=== PATIENT | male | born 1955 | race Caucasian/White ===

== ENCOUNTER → 2020-01-10 08:27 | Outpatient (BNVA) | payer OTHER, SELFPAY | DX: I48.91 Unspecified atrial fibrillation (principal); Z51.81 Encounter for therapeutic drug level monitoring; Z79.01 Long term (current) use of anticoagulants | CPT/HCPCS: 85610; 99211 ==

== ENCOUNTER 2020-01-15 11:51 | Emergency (ER) | payer OTHER, SELFPAY ==
[2020-01-15 11:56] VITALS: BP 129/72; PULSE 80; RESP 16; TEMP 36.8; O2SAT 98; BMI 48.4
--- NOTE | 2020-01-15 12:17 | ECG_ITS ---
Test Reason : CHEST PRESSURE Blood Pressure : / mmHG Vent. Rate : 085 BPM Atrial Rate : 091 BPM P-R Int : 000 ms QRS Dur : 100 ms QT Int : 416 ms P-R-T Axes : 000 -17 006 degrees QTc Int : 495 ms Atrial fibrillation Left axis deviation Nonspecific T wave abnormality Abnormal ECG When compared with ECG of 12-DEC-2016 17:06, Atrial fibrillation is new Referred By: Kina Garnett Electronically Signed By:JEANIE MERLOS MD
--- NOTE | 2020-01-15 12:17 | XR_ITS ---
EXAMINATION: XR CHEST CLINICAL INFORMATION: Cough, shortness of breath COMPARISON: 10/07/2017 TECHNIQUE: 2 views of the chest were obtained. FINDINGS: Mild peribronchial thickening. A trace posterior left pleural effusion is noted. A few increased markings are noted at the left lung base. No pneumothorax. No acute osseous abnormality. IMPRESSION: Mild peribronchial thickening. A few increased markings at the left lung base with a trace left pleural effusion are noted. The findings are not specific. Considerations include an early focus of pneumonia versus secretions/atelectasis.
--- NOTE | 2020-01-15 12:27 | ED_ITS ---
HPI - Asthma General Chief Complaint: Asthma Stated Complaint: SOB Time Seen by Provider: 01/15/20 12:05 Source: EMS Mode of arrival: EMS Limitations: no limitations History of Present Illness HPI Narrative: 64-year-old male with a past medical history of AFib on Coumadin, asthma, Crohn's disease status post resection status post colostomy here with shortness of breath, nonproductive cough x3 days. The patient tells me he has had some chest pressure which occurs with exertion and he has noticed over the past 3 days as well. He denies any fevers, chills, upper respiratory symptoms or lower leg swelling. No calf pain. He also noticed today when he had some chest pressure that he had some tingling in his left and right arms and across his face. He tells me he has had some anxiety recently as his refrigerator broke at home and he has been trying to fix it. Used his albuterol inhaler several times with no relief. No history of ICU admissions or intubations. MD complaint: shortness of breath Onset (ago): day(s) Severity: mild Context: other ( Triggered by season changes, infection) Associated symptoms: dry cough and chest pain Asthma History: childhood onset Treatments Prior to Arrival: inhaled bronchodilator Related Data Current Asthma Therapy: inhaled bronchodilator Previous Rx's Medication Instructions Recorded warfarin 5 mg tablet 5 mg PO DAILY #90 tab 01/10/20 doxycycline monohydrate 100 mg PO BID 10 Days #20 cap 01/15/20 prednisone 20 mg PO BID 4 Days #8 tab 01/15/20 Allergies Allergy/AdvReac Type Severity Reaction Status Date / Time pollen extracts [POLLEN] Allergy Unknown UNKNOWN Verified 01/10/20 08:13 Review of Systems Review of Systems: Yes all other systems are reviewed and are negative Constitutional: Constitutional: Reports no additional constitutional complaints, Denies body ache(s), Denies chills, Denies fever(s), Denies headache(s) and Denies weakness Eyes: Eyes: Reports no additional eye complaints and Denies change in vision ENT: Reports system reviewed and no additional complaints, except as documented, Denies dizziness, Denies headache(s), Denies nasal congestion, Denies nasal discharge and Denies neck pain Cardiovascular: Cardiovascular: Reports no additional cardiovascular complaints, Reports chest pain ( pressure), Reports chest pain with activity, Denies rapid heart rate, Denies leg edema, Denies lightheadedness, Reports dyspnea and Reports dyspnea on exertion Respiratory: Respiratory: Reports no additional respiratory complaints, Repor ts cough, Reports dyspnea and Reports dyspnea on exertion Gastrointestinal: Gastrointestinal: Reports no additional gastrointestinal complaints, Denies abdominal pain, Denies diarrhea, Denies nausea and Denies vomiting Genitourinary: Genitourinary: Denies urinary incontinence Musculoskeletal: Musculoskeletal: Reports no additional musculoskeletal complaints, Denies back pain, Denies arthralgias, Denies joint swelling, Denies neck pain, Denies numbness and Reports tingling Integumentary/Breasts: Skin/Breast: Reports system reviewed and no additional complaints, except as docu and Denies rash Neurologic: Reports system reviewed and no additional complaints, except as documented, Denies Abnormal speech present, Denies dizziness, Denies headache(s), Denies numbness, Reports tingling and Denies weakness PMFSH Past Medical History Attestation statement: The following information was validated with the patient. Source: old records reviewed and nursing notes reviewed Medical History A-fib Asthma Crohn disease Surgical History History of creation of ostomy Social History Social History Alcohol intake: never Smoked in Last 30 Days: No Use of substances other than those prescribed or required for medical reasons: No Advance Directives: No Advance Directives Information Provided: No Physical Exam Vital Signs: Vital Signs: Vital Signs Temp Pulse Resp BP Pulse Ox 01/15/20 13:48 92 20 109/59 L 95 01/15/20 11:56 98.2 F 80 16 129/72 98 Body Mass Index 48.4 Const: General: cooperative, healthy appearing, comfortable and no acute distress Orientation/consciousness: patient oriented x3 Limitations: no limitations HENMT: Head: Yes normal to inspection Ears: hearing grossly normal bilaterally General nose exam: Normal external nose present Face and sinus: Yes normal facial exam Mouth: Normal oral and palatal mucosa present Throat: Yes posterior oropharynx normal Eyes: General: appearance normal, both eyes and all related structures Pupils: Equal, round and reactive pupils present Neck: Neck: Yes normal visual inspection Chest: Chest palpation & inspection: normal inspection of the chest Resp: Other: speaking full sentences. Effort & Inspection: normal respiratory effort Auscultation: clear to auscultation bilaterally Cardio: Rate: regular rate Rhythm: regular rhythm Peripheral pulses: Peripheral pulses 2+ throughout GI: Inspection: Yes normal to inspection Palpation (GI): Soft to palpation and nontender Auscultation: normal bowel sounds Back/Spine/Pelvis: Thoracic/Lumbar Spine: thoracic and lumbar spine normal to inspection Skin: General skin exam: no rashes or lesions noted Neuro: General: patient oriented x3, no focal motor deficits and normal sensation to monofilament Cranial nerves: Yes Equal, round and reactive pupils present Cognition (Neuro): normal cognition Speech: No Abnormal speech present Gait exam (Neuro): Normal gait present Motor exam (neuro): 5/5 motor strength present throughout Extrem: General: Yes normal to inspection Course Course Course Narrative: 64-year-old male here with exertional shortness of breath, chest pressure, dry cough the last 3 days unrelieved with albuterol at home. Today had some associated tingling of upper extremities and face. On arrival the patient is well appearing. Stable vital signs. No chest pressure at this time. Lung sounds are clear. Will need labs, EKG, chest x-ray, respiratory viral panel. Will give DuoNeb, Solu-Medrol and reassessed. 1300- chest x-ray concerning for an early pneumonia. At this time infection is suspected. Blood cultures and lactic acid ordered. 1430- lactic acid mildly elevated. No leukocytosis or shift or fever or other signs or symptoms of sepsis. Pt was given 1 L of normal saline and will plan for repeat lactic. Patient was given 1 dose of antibiotics for presumed pneumonia. He has sufficient albuterol at home. Will give short course of prednisone as well. Ambulated around the ER with stable saturations greater than 96%. Reviewed worrisome signs and symptoms and when to return to the emergency department. Comfortable discharge home. MDM - Asthma MDM Narrative Medical decision making narrative: Considered asthma exacerbation, PE, ACS, viral syndrome, CHF, aortic dissection/ 1430- Low concern for ACS with unremarkable EKG and negative troponin with symptoms greater than 3 days. Low concern for viral syndrome are COVID infection with negative viral panel. Low concern for CHF with negative BNP. Low concern for aortic dissection with atypical pain/presentation, unremarkable chest x-ray and improving symptoms. low concern for PE with therapeutic INR and no hypoxia or tachycardia. Medical Records Attestation: I reviewed the patient's medical records. Lab Data Attestation: I reviewed the patient's lab results. Result diagrams: 01/15/20 12:54 01/15/20 12:54 Labs: Lab Results 01/15/20 01/15/20 01/15/20 Range/Units 12:47 12:54 12:54 WBC 10.7 (4.8-10.8) X10*3/uL RBC 5.32 (4.60-5.80) X10*6/uL Hgb 12.9 L (14.0-18.0) g/dl Hct 44.3 (42-52) % MCV 83.3 (80-98) fL MCH 24.2 L (27.0-33.0) pg MCHC 29.1 L (31.0-36.0) g/dl RDW 16.6 H (11.0-16.0) % Plt Count 244 (160-400) X10*3/uL MPV 10.7 (9.4-12.4) fL Immature Gran % (Auto) 0.3 (0.0-0.4) % Neut % (Auto) 64.9 (45-73) % Lymph % (Auto) 21.1 (20-40) % [place] % (Auto) 11.2 H (2-11) % Eos % (Auto) 2.0 (0-4) % Baso % (Auto) 0.5 (0-2) % Lymph # (Auto) 2.3 (1.2-4.9) X10*3/uL [place] # (Auto) 1.2 (0.1-1.2) X10*3/uL Eos # (Auto) 0.2 (0.0-0.4) X10*3/uL Baso # (Auto) 0.1 (0.0-0.2) X10*3/uL Abs Immat Gran (auto) 0.03 (0.00-0.03) X10*3/uL Absolute Neuts (auto) 7.0 (2.0-8.3) X10*3/uL Absolute Nucleated RBC 0.000 (0.0-0.012) X10*3/uL Nucleated RBC % (auto) 0.0 (0.0-0.2) /100WBC PT 27.4 H (10.8-13.0) SEC INR 2.3 H (0.9-1.1) Sodium (135-145) mmol/L Potassium (3.3-5.1) mmol/l Chloride (96-108) mmol/L Carbon Dioxide (22-29) mmol/L Anion Gap (12-20) BUN (9-16) mg/dL Creatinine (0.5-1.4) mg/dL Estim Creat Clear Calc Estimated GFR Random Glucose (60-115) mg/dL Lactic Acid (0.5-2.0) mmol/L Lactic Acid Fup @ 2Hr (0.5-2.0) mmol/L Calcium (8.4-10.2) mg/dL Magnesium (1.6-2.6) mg/dL Total Bilirubin (0.0-1.0) mg/dL Direct Bilirubin (0.0-0.5) mg/dL AST (5-37) U/L ALT (0-40) U/L Alkaline Phosphatase (39-117) U/L Troponin I High Sens (<3.5-35.0) ng/L B-Natriuretic Peptide (<100) pg/mL Total Protein (6.5-8.0) g/dL Albumin (3.5-5.0) g/dL Respiratory Panel Lindsay See Note Adenovirus (Rapid PCR) Not Detected (Not Detect.) B.pert (TEM-PCR) Not Detected (Not Detect.) B.parapertussis DNA PCR Not Detected (Not Detect.) C. pneumoniae DNA (PCR) Not Detected (Not Detect.) Coronavirus OC43 (PCR) Not Detected (Not Detect.) Coronavirus HKU1 (PCR) Not Detected (Not Detect.) Coronavirus 229E (PCR) Not Detected (Not Detect.) Coronavirus NL63 (PCR) Not Detected (Not Detect.) Human Metapneumovir PCR Not Detected (Not Detect.) Influenza A (RT-PCR) Not Detected (Not Detect.) Influenza B (RT-PCR) Not Detected (Not Detect.) M. pneumoniae (PCR) Not Detected (Not Detect.) Parainfluenza 1 (PCR) Not Detected (Not Detect.) Parainfluenza 2 (PCR) Not Detected (Not Detect.) Parainfluenza 3 (PCR) Not Detected (Not Detect.) Parainfluenza 4 (PCR) Not Detected (Not Detect.) RSV (PCR) Not Detected (Not Detect.) Entero/Rhino (PCR) Not Detected (Not Detect.) SARS-CoV-2 RNA (RT-PCR) Not Detected (Not Detect.) 01/15/20 01/15/20 01/15/20 Range/Units 12:54 12:54 13:28 WBC (4.8-10.8) X10*3/uL RBC (4.60-5.80) X10*6/uL Hgb (14.0-18.0) g/dl Hct (42-52) % MCV (80-98) fL MCH (27.0-33.0) pg MCHC (31.0-36.0) g/dl RDW (11.0-16.0) % Plt Count (160-400) X10*3/uL MPV (9.4-12.4) fL Immature Gran % (Auto) (0.0-0.4) % Neut % (Auto) (45-73) % Lymph % (Auto) (20-40) % [place] % (Auto) (2-11) % Eos % (Auto) (0-4) % Baso % (Auto) (0-2) % Lymph # (Auto) (1.2-4.9) X10*3/uL [place] # (Auto) (0.1-1.2) X10*3/uL Eos # (Auto) (0.0-0.4) X10*3/uL Baso # (Auto) (0.0-0.2) X10*3/uL Abs Immat Gran (auto) (0.00-0.03) X10*3/uL Absolute Neuts (auto) (2.0-8.3) X10*3/uL Absolute Nucleated RBC (0.0-0.012) X10*3/uL Nucleated RBC % (auto) (0.0-0.2) /100WBC PT (10.8-13.0) SEC INR (0.9-1.1) Sodium 142 (135-145) mmol/L Potassium 4.3 (3.3-5.1) mmol/l Chloride 105 (96-108) mmol/L Carbon Dioxide 30 H (22-29) mmol/L Anion Gap 11 L (12-20) BUN 19 H (9-16) mg/dL Creatinine 1.09 (0.5-1.4) mg/dL Estim Creat Clear Calc 101.3 Estimated GFR > 60 Random Glucose 98 (60-115) mg/dL Lactic Acid 2.4 H* (0.5-2.0) mmol/L Lactic Acid Fup @ 2Hr (0.5-2.0) mmol/L Calcium 8.5 (8.4-10.2) mg/dL Magnesium 2.0 (1.6-2.6) mg/dL Total Bilirubin 0.4 (0.0-1.0) mg/dL Direct Bilirubin 0.3 (0.0-0.5) mg/dL AST 31 (5-37) U/L ALT 27 (0-40) U/L Alkaline Phosphatase 121 H (39-117) U/L Troponin I High Sens < 3.5 (<3.5-35.0) ng/L B-Natriuretic Peptide 72 (<100) pg/mL Total Protein 6.7 (6.5-8.0) g/dL Albumin 3.6 (3.5-5.0) g/dL Respiratory Panel Lindsay Adenovirus (Rapid PCR) (Not Detect.) B.pert (TEM-PCR) (Not Detect.) B.parapertussis DNA PCR (Not Detect.) C. pneumoniae DNA (PCR) (Not Detect.) Coronavirus OC43 (PCR) (Not Detect.) Coronavirus HKU1 (PCR) (Not Detect.) Coronavirus 229E (PCR) (Not Detect.) Coronavirus NL63 (PCR) (Not Detect.) Human Metapneumovir PCR (Not Detect.) Influenza A (RT-PCR) (Not Detect.) Influenza B (RT-PCR) (Not Detect.) M. pneumoniae (PCR) (Not Detect.) Parainfluenza 1 (PCR) (Not Detect.) Parainfluenza 2 (PCR) (Not Detect.) Parainfluenza 3 (PCR) (Not Detect.) Parainfluenza 4 (PCR) (Not Detect.) RSV (PCR) (Not Detect.) Entero/Rhino (PCR) (Not Detect.) SARS-CoV-2 RNA (RT-PCR) (Not Detect.) 01/15/20 Range/Units 15:55 WBC (4.8-10.8) X10*3/uL RBC (4.60-5.80) X10*6/uL Hgb (14.0-18.0) g/dl Hct (42-52) % MCV (80-98) fL MCH (27.0-33.0) pg MCHC (31.0-36.0) g/dl RDW (11.0-16.0) % Plt Count (160-400) X10*3/uL MPV (9.4-12.4) fL Immature Gran % (Auto) (0.0-0.4) % Neut % (Auto) (45-73) % Lymph % (Auto) (20-40) % [place] % (Auto) (2-11) % Eos % (Auto) (0-4) % Baso % (Auto) (0-2) % Lymph # (Auto) (1.2-4.9) X10*3/uL [place] # (Auto) (0.1-1.2) X10*3/uL Eos # (Auto) (0.0-0.4) X10*3/uL Baso # (Auto) (0.0-0.2) X10*3/uL Abs Immat Gran (auto) (0.00-0.03) X10*3/uL Absolute Neuts (auto) (2.0-8.3) X10*3/uL Absolute Nucleated RBC (0.0-0.012) X10*3/uL Nucleated RBC % (auto) (0.0-0.2) /100WBC PT (10.8-13.0) SEC INR (0.9-1.1) Sodium (135-145) mmol/L Potassium (3.3-5.1) mmol/l Chloride (96-108) mmol/L Carbon Dioxide (22-29) mmol/L Anion Gap (12-20) BUN (9-16) mg/dL Creatinine (0.5-1.4) mg/dL Estim Creat Clear Calc Estimated GFR Random Glucose (60-115) mg/dL Lactic Acid (0.5-2.0) mmol/L Lactic Acid Fup @ 2Hr 1.5 (0.5-2.0) mmol/L Calcium (8.4-10.2) mg/dL Magnesium (1.6-2.6) mg/dL Total Bilirubin (0.0-1.0) mg/dL Direct Bilirubin (0.0-0.5) mg/dL AST (5-37) U/L ALT (0-40) U/L Alkaline Phosphatase (39-117) U/L Troponin I High Sens (<3.5-35.0) ng/L B-Natriuretic Peptide (<100) pg/mL Total Protein (6.5-8.0) g/dL Albumin (3.5-5.0) g/dL Respiratory Panel Lindsay Adenovirus (Rapid PCR) (Not Detect.) B.pert (TEM-PCR) (Not Detect.) B.parapertussis DNA PCR (Not Detect.) C. pneumoniae DNA (PCR) (Not Detect.) Coronavirus OC43 (PCR) (Not Detect.) Coronavirus HKU1 (PCR) (Not Detect.) Coronavirus 229E (PCR) (Not Detect.) Coronavirus NL63 (PCR) (Not Detect.) Human Metapneumovir PCR (Not Detect.) Influenza A (RT-PCR) (Not Detect.) Influenza B (RT-PCR) (Not Detect.) M. pneumoniae (PCR) (Not Detect.) Parainfluenza 1 (PCR) (Not Detect.) Parainfluenza 2 (PCR) (Not Detect.) Parainfluenza 3 (PCR) (Not Detect.) Parainfluenza 4 (PCR) (Not Detect.) RSV (PCR) (Not Detect.) Entero/Rhino (PCR) (Not Detect.) SARS-CoV-2 RNA (RT-PCR) (Not Detect.) Imaging Data Chest x-ray: Attestation: I personally reviewed and interpreted this imaging study as follows: My impression: Mild peribronchial thickening, trace left pleural effusion. ?early PNA vs atelectasis. Radiologist's impression: EXAMINATION: XR CHEST CLINICAL INFORMATION: Cough, shortness of breath COMPARISON: 10/07/2017 TECHNIQUE: 2 views of the chest were obtained. FINDINGS: Mild peribronchial thickening. A trace posterior left pleural effusion is noted. A few increased markings are noted at the left lung base. No pneumothorax. No acute osseous abnormality. IMPRESSION: Mild peribronchial thickening. A few increased markings at the left lung base with a trace left pleural effusion are noted. The findings are not specific. Considerations include an early focus of pneumonia versus secretions/atelectasis. ECG Data Attestation: I personally reviewed and interpreted this ECG as follows: ECG interpretation date: 01/15/20 ECG interpretation time: 12:40 Interpretation: EKG shows rate of 85. there are not obvious P-waves in every lead however there are some present. Prolonged QT 495. Normal QRS Discharge Plan Discharge Clinical Impression: Pneumonia Patient Disposition: Home, Self-Care Instructions: Pneumonia (ED) Additional Instructions: Start your antibiotics and prednisone tomorrow morning Continue albuterol as needed Prescriptions: New doxycycline monohydrate 100 mg capsule 100 mg PO BID 10 Days Qty: 20 RF: 0 prednisone 20 mg tablet 20 mg PO BID 4 Days Qty: 8 RF: 0 No Action warfarin 5 mg tablet 5 mg PO DAILY Qty: 90 RF: 0 Referrals: Butch Rios MD [Primary Care Provider] - 2 days Interventions: ED Discharge Assessment Last Done: 01/15/20 17:10 Discharge Date/Time: 01/15/20 17:11
[2020-01-15] MEDS: methylPREDNISolone Sod Succ/PF 125 MG/2 ML VIAL IVPUSH (12:30)
[2020-01-15] MEDS: Albuterol/Iprat 2.5/0.5MG 3 ML AMPUL.NEB INHALE (12:30)
[2020-01-15 13:00] LABS: Basophils Absolute Auto 0.1 X10*3/uL (0.0-0.2); Basophils Percent Auto 0.5 % (0-2); Eosinophils Absolute Auto 0.2 X10*3/uL (0.0-0.4); Hematocrit 44.3 % (42-52); Hemoglobin 12.9 g/dl (14.0-18.0); Imm Gran Abs Auto 0.03 X10*3/uL (0.00-0.03); Imm Gran Pct Auto 0.3 % (0.0-0.4); Lymphocytes Absolute Auto 2.3 X10*3/uL (1.2-4.9); Lymphocytes Percent Auto 21.1 % (20-40); MANUAL DIFF FLAG NO; Mean Corpuscular HGB Conc 29.1 g/dl (31.0-36.0); Mean Corpuscular Hemoglobin 24.2 pg (27.0-33.0); Mean Corpuscular Volume 83.3 fL (80-98); Mean Platelet Volume 10.7 fL (9.4-12.4); Monocytes Absolute Auto 1.2 X10*3/uL (0.1-1.2); Monocytes Percent Auto 11.2 % (2-11); Neutrophils Percent Auto 64.9 % (45-73); Platelet Count 244 X10*3/uL (160-400); Red Blood Count 5.32 X10*6/uL (4.60-5.80); Red Cell Distribution Width 16.6 % (11.0-16.0); White Blood Count 10.7 X10*3/uL (4.8-10.8)
[2020-01-15 13:05] LABS: INTERNATIONAL NORM RATIO 2.3 (0.9-1.1); Prothrombin Time 27.4 SEC (10.8-13.0)
[2020-01-15 13:07] LABS: Adenovirus PCR Not Detected (Not Detect.); Bordetella parapertussis PCR Not Detected (Not Detect.); Bordetella pertussis PCR Not Detected (Not Detect.); Chlamydia pneumoniae PCR Not Detected (Not Detect.); Coronavirus 229E PCR Not Detected (Not Detect.); Coronavirus HKU1 PCR Not Detected (Not Detect.); Coronavirus NL63 PCR Not Detected (Not Detect.); Coronavirus OC43 PCR Not Detected (Not Detect.); Human metapneumovirus PCR Not Detected (Not Detect.); Influenza A PCR Not Detected (Not Detect.); Influenza B PCR Not Detected (Not Detect.); Mycoplasma pneumoniae PCR Not Detected (Not Detect.); Parainfluenza 1 PCR Not Detected (Not Detect.); Parainfluenza 2 PCR Not Detected (Not Detect.); Parainfluenza 3 PCR Not Detected (Not Detect.); Parainfluenza 4 PCR Not Detected (Not Detect.); RSV PCR Not Detected (Not Detect.); Rhino/Enterovirus PCR Not Detected (Not Detect.); SARS-CoV-2 PCR Not Detected (Not Detect.)
[2020-01-15 13:30] LABS: Alanine Aminotransferase 27 U/L (0-40); Albumin Level 3.6 g/dL (3.5-5.0); Alkaline Phosphatase 121 U/L (39-117); Aspartate Amino Transferase 31 U/L (5-37); Bilirubin Direct 0.3 mg/dL (0.0-0.5); Bilirubin Total 0.4 mg/dL (0.0-1.0); Blood Urea Nitrogen 19 mg/dL (9-16); Calcium 8.5 mg/dL (8.4-10.2); Creatinine Clr Calc Pharmacy 101.3; Estimated Glomerular Filt Rate > 60; Glucose Random 98 mg/dL (60-115); Total Protein 6.7 g/dL (6.5-8.0)
[2020-01-15 13:34] LABS: B Type Natriuretic Peptide 72 pg/mL (<100); Troponin-I High Sensitivity < 3.5 ng/L (<3.5-35.0)
[2020-01-15 13:41] LABS: Anion Gap 11 (12-20); Carbon Dioxide 30 mmol/L (22-29); Chloride 105 mmol/L (96-108); Potassium 4.3 mmol/l (3.3-5.1); Sodium 142 mmol/L (135-145)
[2020-01-15 13:48] VITALS: BP 109/59; PULSE 92; RESP 20; O2SAT 95
[2020-01-15 13:58] LABS: Lactic Acid 2.4 mmol/L (0.5-2.0)
[2020-01-15] MEDS: 0.9 % Sodium Chloride 1,000 ML 999 ML IV (14:05)
--- NOTE | 2020-01-15 14:13 | PC.NURSE ---
PT SITTING UP IN BED, MEDICATED PER EMAR. AWARE OF PLAN OF CARE. DENIED HAVING ANY QUESTIONS. PT EATING AT THIS TIME.
[2020-01-15 15:32] LABS: Reflex Lactate? Lactic Acid Added
[2020-01-15 16:30] LABS: ~Lactic Acid-LAB USE ONLY 1.5 mmol/L (0.5-2.0)
== END 2020-01-15 17:11 | disposition home or self-care (01) ==
PROVIDERS: Nurse Practitioner Family; Emergency Provider Emergency Medicine
DX: J18.9 Pneumonia, unspecified organism (principal); Z20.828 Contact with and (suspected) exposure to other viral communicable diseases; J45.909 Unspecified asthma, uncomplicated; I48.91 Unspecified atrial fibrillation; Z79.01 Long term (current) use of anticoagulants
CPT/HCPCS: 36415; 71046; 80048; 80076; 83605; 83735; 83880; 84484; 85025; 85610; 87040; 87633; 93005; 96361; 96374; 99284; J2930

== ENCOUNTER → 2020-02-02 12:56 | Outpatient (BNVA) | payer OTHER, SELFPAY | PROVIDERS: Visit Provider Surgery | DX: K60.3 Anal fistula (principal) | CPT/HCPCS: 99212 ==

== ENCOUNTER → 2020-02-13 07:59 | Outpatient (BNVA) | payer OTHER, SELFPAY | PROVIDERS: Visit Provider Internal Medicine | DX: I48.20 Chronic atrial fibrillation, unspecified (principal); Z51.81 Encounter for therapeutic drug level monitoring; Z79.01 Long term (current) use of anticoagulants | CPT/HCPCS: 85610; 99211 ==

== ENCOUNTER 2020-02-17 11:45 | Outpatient (REF) | payer OTHER, SELFPAY ==
--- NOTE | 2020-02-17 11:52 | XR_ITS ---
EXAMINATION: XR CHEST CLINICAL INFORMATION: Shortness of breath COMPARISON: Chest radiographs 01/15/2020, 10/07/2017 TECHNIQUE: 2 views of the chest were obtained. FINDINGS: There is no definite airspace consolidation or groundglass opacity. Density right suprahilar region on frontal view is believed to be related to superimposed attenuation from costochondral chondral junction. In addition, there is no airspace opacity on lateral view and this area. There is coarsening bronchiolar markings. No hyperinflation. The heart is normal in size. The vascularity is normal. The lateral costophrenic sulci are clear. There is blunting posterior costophrenic sulcus is similar to prior exam. The hilar and mediastinal contours are unremarkable. No acute bony abnormality. Mid left 8th rib not well visualized, similar to prior exam, possibly postsurgical change. XR/XR chest 2V IMPRESSION: 1. Coarsening bronchiolar markings. No lobar or segmental airspace consolidation. 2. Blunting posterior left costophrenic sulcus and ill-defined left mid 8th rib, similar to prior exam, possibly postsurgical change.
== END 2020-02-17 11:46 | disposition home or self-care (01) ==
LOC: HO.XRAY 11:45
DX: R06.02 Shortness of breath (principal)
CPT/HCPCS: 71046

== ENCOUNTER 2020-03-02 08:51 | Outpatient (REF) | payer OTHER, SELFPAY ==
[2020-03-02 10:14] LABS: MANUAL DIFF FLAG NO
[2020-03-02 10:27] LABS: Basophils Absolute Auto 0.1 X10*3/uL (0.0-0.2); Basophils Percent Auto 0.6 % (0-2); Eosinophils Absolute Auto 0.4 X10*3/uL (0.0-0.4); Eosinophils Percent Auto 4.1 % (0-4); Hematocrit 47.7 % (42-52); Hemoglobin 13.5 g/dl (14.0-18.0); Imm Gran Abs Auto 0.05 X10*3/uL (0.00-0.03); Imm Gran Pct Auto 0.5 % (0.0-0.4); Lymphocytes Absolute Auto 1.7 X10*3/uL (1.2-4.9); Lymphocytes Percent Auto 16.4 % (20-40); Mean Corpuscular HGB Conc 28.3 g/dl (31.0-36.0); Mean Corpuscular Hemoglobin 23.4 pg (27.0-33.0); Mean Corpuscular Volume 82.8 fL (80-98); Mean Platelet Volume 10.7 fL (9.4-12.4); Monocytes Percent Auto 9.4 % (2-11); Platelet Count 279 X10*3/uL (160-400); Red Blood Count 5.76 X10*6/uL (4.60-5.80); Red Cell Distribution Width 18.2 % (11.0-16.0); White Blood Count 10.1 X10*3/uL (4.8-10.8)
== END 2020-03-02 08:52 | disposition home or self-care (01) ==
LOC: HO.LAB 08:51
PROVIDERS: Visit Provider Internal Medicine Pulmonary Disease
DX: Z91.09 Other allergy status, other than to drugs and biological substances (principal); J45.909 Unspecified asthma, uncomplicated
CPT/HCPCS: 36415; 82785; 85025; 86003; 99202

== ENCOUNTER 2020-03-06 07:49 | Outpatient (REF) | payer OTHER, SELFPAY ==
--- NOTE | 2020-03-06 17:41 | PFT_ITS ---
Forced vital capacity, FEV1, [id number], and MVV are all markedly decreased. Post bronchodilator therapy, there is significant improvement in all flow volumes. Total lung capacity is slightly decreased. Residual volume moderately increased. Diffusion capacity moderately decreased. CONCLUSION: Mild restrictive pulmonary disorder. Severe obstructive airway disorder. Partial reversibility after bronchodilator therapy is noted. This indicates diagnosis of asthma, COPD overlap syndrome. Clinical correlation recommended. MD SOCORRO Wood/HAROON / [id number]
== END 2020-03-06 07:50 | disposition home or self-care (01) ==
LOC: HO.RESP 07:49
PROVIDERS: Visit Provider Internal Medicine Pulmonary Disease
DX: J45.909 Unspecified asthma, uncomplicated (principal)
CPT/HCPCS: 94060; 94727; 94729

== ENCOUNTER → 2020-03-12 08:03 | Outpatient (BNVA) | payer OTHER, SELFPAY | PROVIDERS: Visit Provider Internal Medicine | DX: I48.20 Chronic atrial fibrillation, unspecified (principal); Z51.81 Encounter for therapeutic drug level monitoring; Z79.01 Long term (current) use of anticoagulants | CPT/HCPCS: 85610; 99211 ==

== ENCOUNTER → 2020-03-19 12:53 | Outpatient (BNVA) | payer OTHER, SELFPAY | PROVIDERS: PCP Internal Medicine; Visit Provider Internal Medicine | DX: I48.19 Other persistent atrial fibrillation (principal); R07.89 Other chest pain; Z79.899 Other long term (current) drug therapy | CPT/HCPCS: 93005; 99202 ==

== ENCOUNTER → 2020-03-21 09:41 | Outpatient (BNVA) | payer OTHER, SELFPAY | PROVIDERS: Visit Provider Internal Medicine Pulmonary Disease | DX: Z91.09 Other allergy status, other than to drugs and biological substances (principal); J45.909 Unspecified asthma, uncomplicated | CPT/HCPCS: 99212 ==

== ENCOUNTER → 2020-04-09 07:57 | Outpatient (BNVA) | payer OTHER, SELFPAY | PROVIDERS: Visit Provider Internal Medicine | DX: I48.20 Chronic atrial fibrillation, unspecified (principal); Z51.81 Encounter for therapeutic drug level monitoring; Z79.01 Long term (current) use of anticoagulants | CPT/HCPCS: 85610; 99211 ==

== ENCOUNTER → 2020-04-12 10:12 | Outpatient (REF) | payer OTHER, SELFPAY ==
--- NOTE | 2020-04-12 10:21 | CA_ITS ---
Transthoracic Echocardiogram Patient (Last, First, Middle): Gorge Dave M Gender: Male Date of : 1955 Age: 65 Procedure Date: 04/12/2020 Procedure Type: Transthoracic Echocardiogram Location: OP Height: 177.8 cm Weight: 142.88 kg BSA: 2.53 m2 Heart Rate: bpm BP: 110 / 70 mmHg Manager Process Improvement: FRANCISCO J Foote MD: Dimitri Villarreal MD Quality Assurance Engineer: Alex Leahy MD Symptoms: I48.19 - Other persistent atrial fibrillation Study Quality: Fair/Contrast ECG Rhythm: Atrial Fibrillation Conclusions: - 1. Normal LV systolic function 2. Moderate left atrial enlargement 3. Normal cardiac valvular Doppler next 4. Mildly dilated ascending aorta 5. No gross pericardial effusion 6. Normal RV systolic pressure Findings Procedure Information Contrast agent, definity, is being given per protocol without apparent complications. Left Ventricle Normal left ventricular size, thickness, and systolic function. The visually estimated ejection fraction is between 60-65%. Diastolic function is indeterminate on the basis of available data. Right Ventricle Mildly increased right ventricular cavity size. There is normal right ventricular systolic function. Atria The left atrium is moderately dilated. Interatrial shunt cannot be excluded. The right atrium is mildly dilated. Aortic Valve The aortic valve structure and function is likely normal. There is no aortic valve stenosis. There is no aortic valve regurgitation. Mitral Valve Normal mitral valve structure and function. There is trace mitral valve regurgitation. There is no mitral valve stenosis. Pulmonic Valve The pulmonic valve was not well visualized. Tricuspid Valve Likely normal tricuspid valve structure and function. There is trace tricuspid valve regurgitation. The right ventricular systolic pressure is normal. Normal right atrial pressure. There is no evidence of pulmonary hypertension. Great Vessels There is mild dilatation of the ascending aorta measuring 4.00 cm. Venous The inferior vena cava is normal in size and collapses greater than 50% with inspiration. Pericardium/Pleural There is no evidence of pericardial effusion. Prior Study Comparison No previous study in the last 5 years for comparison Measurements 2D Linear Measurements IVSd: 1.11 0.6-0.9/0.6-1.0 cm LVIDd: 4.48 3.9-5.3/4.2-5.9 cm LVIDd Index: 1.77 2.4-3.2/2.2-3.1 cm/m2 LVIDs: 2.86 2.0-3.6 cm LVPWd: 1.12 0.7-1.1 cm Ao Root: 3.60 2.1-3.5 cm LA Diam: 5.00 2.7-3.8/3.0-4.0 cm LAIDs Index: 1.98 1.5-2.3 cm/m2 LV Mass: 220.68 67-162/88-224 g LV Mass Index: 87.23 43-95/49-115 g/m2 LVOT Diam: 2.20 3.0+(-)1.3 cm Aortic Valve AoV Pk Terrence: 1.21 AoV Mn Terrence: 0.81 AoV VTI: 0.22 AoV Pk Grad: 6.00 Aov Mn Grad: 3.00 ADRIAN Cont.VTI: 2.40 LVOT LVOT Pk Terrence: 0.78 LVOT Mn Terrence: 0.52 LVOT VTI: 0.14 LVOT Pk Grad: 2.00 LVOT Mn Grad: 1.00 LVOT Diam: 2.20 LVOT Area: 3.80 Tricuspid Valve TR Pk Terrence: 2.17 TR Pk Grad: 19.00 RA Press: 3.00 RVSP: 22.00 Great Vessels Aorta Ao Root-2D: 3.60 2.0-3.7 cm Ao Asc: 4.00 2.1-3.4 cm Ao Arch: 3.50 Updated in Other Vendor System with Status of Final Alex Leahy MD electronically signed on 04/13/2020 1:58:44 PM with status of Final
--- NOTE | 2020-04-12 10:21 | ECG_ITS ---
Hook-up date: 2020-04-12 11:38:00 Duration: 27:00:00 Test Indications: PERSISTANT AFIB Medications: 331822 QRS complexes 214 Ventricular ectopics which represent <1 % of total QRS comp. * Supraventricular ectopics which represent % of total QRS comp. * Paced QRS complexs which represent % of total QRS comp. VENTRICULAR ECTOPY 210 Isolated 0 Bigeminal Cycles 2 Couplets 0 Runs 0 Beats in Runs * Beats LONGEST at * BPM at :: -- * Beats FASTEST at * BPM at :: -- SUPRAVENTRICULAR ECTOPY * Isolated * Couplets * Runs * Beats in Runs * Beats LONGEST at * BPM at :: -- * Beats FASTEST at * BPM at :: -- HEART RATES 46 MIN at 23:28:29 2020-04-12 71 AVG 138 MAX at 17:49:50 2020-04-12 LONGEST RR 2.5440 secs at 23:28:26 2020-04-12 S-T LEVELS Channel 1 - 128 mm at 11:38:00 2020-04-12 - 128 mm at 11:38:00 2020-04-12 Channel 2 - 128 mm at 11:38:00 2020-04-12 - 128 mm at 11:38:00 2020-04-12 Channel 3 - 128 mm at 03:05:71 -- - 128 mm at 03:05:71 Basic rhythm Atrial fibrillation No long pause or profound bradycardia Good rate control in AF Occasional Premature ventricular complexes Patient did not report any symptoms in the diary Referred By: Dimitri Villarreal Overread By: KAYLIE BANG MD
== END ==
LOC: HO.CARD 10:12
PROVIDERS: Visit Provider Internal Medicine
DX: I48.19 Other persistent atrial fibrillation (principal)
CPT/HCPCS: 93225; 93226; 93306; Q9957

== ENCOUNTER → 2020-04-18 09:11 | Outpatient (BNVA) | payer OTHER, SELFPAY | PROVIDERS: Visit Provider Internal Medicine Pulmonary Disease | DX: Z91.09 Other allergy status, other than to drugs and biological substances (principal); J45.909 Unspecified asthma, uncomplicated | CPT/HCPCS: 99212 ==

== ENCOUNTER → 2020-04-26 10:53 | Outpatient (BNVA) | payer OTHER, SELFPAY | PROVIDERS: PCP Internal Medicine; Visit Provider Internal Medicine | DX: I48.19 Other persistent atrial fibrillation (principal); R07.89 Other chest pain; Z79.01 Long term (current) use of anticoagulants | CPT/HCPCS: 99212 ==

== ENCOUNTER → 2020-04-30 07:47 | Outpatient (REF) | payer OTHER, SELFPAY ==
--- NOTE | 2020-04-30 | NM_ITS ---
Myocardial perfusion study Indication: Chest pressure to evaluate for myocardial ischemia Technique: The patient was brought in for a Lexiscan perfusion study on 04/30/2020. Patient performed low-level exercise and was injected 0.4 mg of Lexiscan intravenously. Within a minute of injection, 45 mCi of sestamibi was given intravenously. Images were obtained using the SPECT gamma camera interlaced with the gating device. Images were obtained in supine position. Resting perfusion study was performed on 05/01/2020. Patient was administered 45 mCi of sestamibi intravenously at rest. Images were then obtained in supine position. Images obtained with and without CT attenuation. Total DLP 144 mGy-cm Images were processed with the software and compared side to side in short axis, horizontal long axis and vertical long axis views. Findings: Suboptimal due to and down positioning during imaging The stress perfusion study showed non attenuated images show mildly reduced uptake in the lateral and inferolateral wall of the LV myocardium. Remainder of the LV myocardium is normally perfused. Attenuated corrected images show of the distal lateral wall of the LV myocardium.. The gated study shows normal LV systolic function with calculated LVEF of greater than 70 %. LV cavity is normal in size. The gated study shows normal systolic wall thickening and contraction of segments. Resting study shows no significant change in perfusion pattern compared to stress perfusion study. Gating at rest reveals normal systolic wall motion with ejection fraction at 72%. The findings are consistent with no clear reversible defect, most likely normal myocardial perfusion. NM/NM reagan perf SPECT rest & str Impression: 1. Myocardial perfusion imaging study shows likely normal myocardial perfusion 2. Gated LVEF is greater than 70% 3. Transient ischemic dilatation not present EKG is nondiagnostic for ischemia
--- NOTE | 2020-04-30 07:52 | CA_ITS ---
Acquisition Time: 2020-04-30 07:57:53 Total Exercise Time: 00:02:00 Test Indications: Chest Pain Medications: ALBUTEROL AMIODORONE BREO ELLIPTA METOPROLOL WARFARIN BALSALAZIDE Protocol: LEXISCAN Max HR: 133 BPM 84% of Pred: 157 BPM Max BP: 134/072 mmHG Max Work Load: 1.0 METS Pharmacological stress test with Lexiscan injection, while sitting and kicking his legs, with report of sob and chest pressure, without arrythmia, with normotensive response to injection, with nondiagnostic EKG for ischemia. In recovery he continued to report symptoms and was treated with Aminophylline 75mg IVP to reverse Lexiscan with improvement. Nuclear images pending. Test reviewed with Dr Leahy. Referred By: Dimitri Villarreal Overread By: BIJAL PATEL
== END ==
LOC: HO.CARD 07:47
PROVIDERS: PCP Internal Medicine; Visit Provider Internal Medicine
DX: R07.89 Other chest pain (principal); I20.9 Angina pectoris, unspecified
CPT/HCPCS: 78452; 93017; A9500; J0280; J2785

== ENCOUNTER → 2020-05-07 07:58 | Outpatient (BNVA) | payer OTHER, SELFPAY | PROVIDERS: PCP Internal Medicine; Visit Provider Internal Medicine | DX: I48.20 Chronic atrial fibrillation, unspecified (principal); Z51.81 Encounter for therapeutic drug level monitoring; Z79.01 Long term (current) use of anticoagulants | CPT/HCPCS: 85610; 99211 ==

== ENCOUNTER → 2020-05-24 10:05 | Outpatient (BNVA) | payer OTHER, SELFPAY | PROVIDERS: PCP Internal Medicine; Visit Provider Internal Medicine | DX: I48.19 Other persistent atrial fibrillation (principal); Z79.01 Long term (current) use of anticoagulants | CPT/HCPCS: 99212 ==

== ENCOUNTER → 2020-06-04 07:59 | Outpatient (BNVA) | payer OTHER, SELFPAY | PROVIDERS: PCP Internal Medicine; Visit Provider Internal Medicine | DX: I48.20 Chronic atrial fibrillation, unspecified (principal); Z51.81 Encounter for therapeutic drug level monitoring; Z79.01 Long term (current) use of anticoagulants | CPT/HCPCS: 85610; 99211 ==

== ENCOUNTER 2020-06-11 08:14 | Outpatient (REF) | payer OTHER, SELFPAY ==
[2020-06-11 11:57] LABS: Alanine Aminotransferase 22 U/L (0-40); Anion Gap 11 (12-20); Aspartate Amino Transferase 28 U/L (5-37); Blood Urea Nitrogen 20 mg/dL (9-16); Calcium 8.3 mg/dL (8.4-10.2); Carbon Dioxide 30 mmol/L (22-29); Chloride 103 mmol/L (96-108); Cholesterol 135 mg/dL; Estimated Glomerular Filt Rate 58; Glucose Fasting 80 mg/dL (60-99); HDL Cholesterol 42 mg/dL; LDL Cholesterol Calculated 64 mg/dl; Potassium 4.3 mmol/L (3.3-5.1); Sodium 140 mmol/L (135-145); Triglycerides 145 mg/dL
[2020-06-11 12:04] LABS: PSA,Total (Free>4and<10) 1.17 ng/mL (0.00-4.00); TSH reflex Free T4 1.71 uIU/mL (0.32-4.0); Vitamin D 25-OH Total 28.4 ng/mL (>30)
[2020-06-12 05:56] LABS: Immunoglobulin E 442 kU/L (<OR=114)
== END 2020-06-11 08:15 | disposition home or self-care (01) ==
LOC: HO.HMGCLDS 08:14
PROVIDERS: Internal Medicine Pulmonary Disease; PCP Internal Medicine; Visit Provider Internal Medicine
DX: Z00.01 Encounter for general adult medical examination with abnormal findings (principal); Z12.5 Encounter for screening for malignant neoplasm of prostate; I48.19 Other persistent atrial fibrillation; I10 Essential (primary) hypertension; Z79.01 Long term (current) use of anticoagulants; Z91.09 Other allergy status, other than to drugs and biological substances
CPT/HCPCS: 36415; 80048; 80061; 82306; 82785; 84153; 84443; 84450; 84460

== ENCOUNTER → 2020-06-26 20:15 | Outpatient (REF) | payer OTHER, SELFPAY | LOC: HO.SL 20:15 | PROVIDERS: PCP Internal Medicine; Visit Provider Internal Medicine | DX: G47.33 Obstructive sleep apnea (adult) (pediatric) (principal); I48.19 Other persistent atrial fibrillation | CPT/HCPCS: 95811 ==

== ENCOUNTER → 2020-07-02 08:12 | Outpatient (BNVA) | payer OTHER, SELFPAY | PROVIDERS: PCP Internal Medicine; Visit Provider Internal Medicine | DX: I48.91 Unspecified atrial fibrillation (principal); Z79.01 Long term (current) use of anticoagulants; Z51.81 Encounter for therapeutic drug level monitoring | CPT/HCPCS: 85610; 99211 ==

== ENCOUNTER → 2020-07-30 08:04 | Outpatient (BNVA) | payer OTHER, SELFPAY | PROVIDERS: PCP Internal Medicine; Visit Provider Internal Medicine | DX: I48.20 Chronic atrial fibrillation, unspecified (principal); Z51.81 Encounter for therapeutic drug level monitoring; Z79.01 Long term (current) use of anticoagulants | CPT/HCPCS: 85610; 99211 ==

== ENCOUNTER 2020-08-28 14:49 | Outpatient (REF) | payer OTHER, SELFPAY ==
--- NOTE | ~2020-08-28 | XR_ITS ---
EXAMINATION: XR CHEST CLINICAL INFORMATION: Wheezing COMPARISON: None TECHNIQUE: 2 views of the chest were obtained. FINDINGS: The lungs are well-expanded with increased vascular markings in both lungs. There is mild bilateral apical pleural thickening. There is no consolidation or pleural effusion. The heart size and pulmonary vascularity is normal. No gross bony abnormality seen. XR/XR chest 2V IMPRESSION: Cardiomegaly with mild pulmonary vascular congestion is suspected.
== END 2020-08-28 14:50 | disposition home or self-care (01) ==
LOC: HO.XRAY 14:49
PROVIDERS: PCP Internal Medicine; Visit Provider Nurse Practitioner Family
DX: R06.2 Wheezing (principal); R05 Cough
CPT/HCPCS: 71046

== ENCOUNTER → 2020-08-30 08:03 | Outpatient (BNVA) | payer OTHER, SELFPAY | PROVIDERS: PCP Internal Medicine; Visit Provider Internal Medicine | DX: I48.19 Other persistent atrial fibrillation (principal); R07.89 Other chest pain; G47.33 Obstructive sleep apnea (adult) (pediatric); Z79.01 Long term (current) use of anticoagulants | CPT/HCPCS: 99212 ==

== ENCOUNTER → 2020-09-03 08:06 | Outpatient (BNVA) | payer OTHER, SELFPAY | PROVIDERS: PCP Internal Medicine; Visit Provider Internal Medicine | DX: I48.20 Chronic atrial fibrillation, unspecified (principal); Z51.81 Encounter for therapeutic drug level monitoring; Z79.01 Long term (current) use of anticoagulants | CPT/HCPCS: 85610; 99211 ==

== ENCOUNTER 2020-09-11 09:24 | Outpatient (REF) | payer OTHER, SELFPAY ==
[2020-09-11 11:26] LABS: MANUAL DIFF FLAG NO
[2020-09-11 11:52] LABS: Basophils Absolute Auto 0.1 X10*3/uL (0.0-0.2); Basophils Percent Auto 0.5 % (0-2); Eosinophils Absolute Auto 0.3 X10*3/uL (0.0-0.4); Eosinophils Percent Auto 3.4 % (0-4); Hematocrit 43.7 % (42-52); Hemoglobin 12.4 g/dl (14.0-18.0); Imm Gran Abs Auto 0.06 X10*3/uL (0.00-0.03); Imm Gran Pct Auto 0.6 % (0.0-0.4); Lymphocytes Absolute Auto 1.5 X10*3/uL (1.2-4.9); Lymphocytes Percent Auto 15.6 % (20-40); Mean Corpuscular HGB Conc 28.4 g/dl (31.0-36.0); Mean Corpuscular Hemoglobin 23.4 pg (27.0-33.0); Mean Corpuscular Volume 82.3 fL (80-98); Mean Platelet Volume 11.3 fL (9.4-12.4); Monocytes Percent Auto 9.9 % (2-11); Neutrophils Absolute Auto 6.7 X10*3/uL (2.0-8.3); Platelet Count 282 X10*3/uL (160-400); Red Blood Count 5.31 X10*6/uL (4.60-5.80); Red Cell Distribution Width 18.7 % (11.0-16.0); White Blood Count 9.6 X10*3/uL (4.8-10.8)
[2020-09-11 12:09] LABS: Iron 32 mcg/dL (45-160); Percent Iron Saturation 8 % (15-50); TSH reflex Free T4 1.42 uIU/mL (0.32-4.0); Total Iron Binding Capacity 425 mcg/dL (228-428); Unsaturated Iron Binding 393 ug/dL; Vitamin D 25-OH Total 39.5 ng/mL (>30)
== END 2020-09-11 09:25 | disposition home or self-care (01) ==
LOC: HO.HMGCLDS 09:24
PROVIDERS: PCP Internal Medicine; Visit Provider Internal Medicine
DX: R09.89 Other specified symptoms and signs involving the circulatory and respiratory systems (principal); R20.0 Anesthesia of skin; R20.2 Paresthesia of skin; I48.19 Other persistent atrial fibrillation; D64.9 Anemia, unspecified; E55.9 Vitamin D deficiency, unspecified; Z79.01 Long term (current) use of anticoagulants
CPT/HCPCS: 36415; 82306; 83540; 84443; 85025

== ENCOUNTER → 2020-10-02 10:56 | Outpatient (BNVA) | payer OTHER, SELFPAY | PROVIDERS: PCP Internal Medicine; Visit Provider Internal Medicine | DX: I48.19 Other persistent atrial fibrillation (principal); Z51.81 Encounter for therapeutic drug level monitoring; Z79.01 Long term (current) use of anticoagulants | CPT/HCPCS: 85610; 99211 ==

== ENCOUNTER 2020-10-05 09:30 | Outpatient (REF) | payer OTHER, SELFPAY ==
[2020-10-05 10:41] LABS: MANUAL DIFF FLAG NO
[2020-10-05 10:51] LABS: Basophils Absolute Auto 0.1 X10*3/uL (0.0-0.2); Basophils Percent Auto 0.7 % (0-2); Eosinophils Absolute Auto 0.3 X10*3/uL (0.0-0.4); Eosinophils Percent Auto 4.2 % (0-4); Hematocrit 46.6 % (42-52); Hemoglobin 13.5 g/dl (14.0-18.0); Imm Gran Abs Auto 0.05 X10*3/uL (0.00-0.03); Imm Gran Pct Auto 0.6 % (0.0-0.4); Lymphocytes Absolute Auto 1.4 X10*3/uL (1.2-4.9); Lymphocytes Percent Auto 16.9 % (20-40); Mean Corpuscular Hemoglobin 24.5 pg (27.0-33.0); Mean Corpuscular Volume 84.6 fL (80-98); Mean Platelet Volume 10.9 fL (9.4-12.4); Monocytes Absolute Auto 0.8 X10*3/uL (0.1-1.2); Monocytes Percent Auto 9.2 % (2-11); Neutrophils Absolute Auto 5.6 X10*3/uL (2.0-8.3); Neutrophils Percent Auto 68.4 % (45-73); Platelet Count 255 X10*3/uL (160-400); Red Blood Count 5.51 X10*6/uL (4.60-5.80); Red Cell Distribution Width 21.5 % (11.0-16.0); White Blood Count 8.1 X10*3/uL (4.8-10.8)
== END 2020-10-05 09:31 | disposition home or self-care (01) ==
LOC: HO.LAB 09:30
PROVIDERS: PCP Internal Medicine; Visit Provider Internal Medicine Pulmonary Disease
DX: J45.40 Moderate persistent asthma, uncomplicated (principal); G47.33 Obstructive sleep apnea (adult) (pediatric); Z91.09 Other allergy status, other than to drugs and biological substances; Z99.89 Dependence on other enabling machines and devices
CPT/HCPCS: 36415; 85025; 86003; 99212

== ENCOUNTER 2020-10-09 08:23 | Outpatient (REF) | payer OTHER, SELFPAY ==
--- NOTE | ~2020-10-09 | US_ITS ---
EXAMINATION: COLOR-FLOW DUPLEX IMAGING OF THE BILATERAL LOWER EXTREMITY ARTERIAL SYSTEM. VELOCITY MEASUREMENTS THROUGHOUT THE FEMORAL ARTERIES Interventional Radiologist: Jose Leung M.D., F.S.I.R., F.A.C.R. CLINICAL INFORMATION: This is a 65-year-old male with numbness and tingling of the lower extremity bilaterally. Peripheral arterial disease. RIGHT FEMORAL RUNOFF VELOCITIES: The right common femoral artery measures 116 cm/s and triphasic. The right profunda femoral artery is 66 cm/s and is triphasic. Right proximal superficial femoral artery measures 107 cm/s and triphasic. Mid superficial femoral artery is 77 cm/s and triphasic. Distal right superficial femoral artery measures 91 cm/s and is triphasic. Right popliteal velocity measures 67 cm/s and is triphasic. The posterior tibial artery velocity measures 87 cm/s and was triphasic. LEFT FEMORAL RUNOFF VELOCITIES: The left common femoral artery measures 133 cm/s and biphasic. The left profunda femoral artery is 55 cm/s and is triphasic. Left proximal superficial femoral artery measures 116 cm/s and triphasic. Mid superficial femoral artery is 90 cm/s and triphasic. Distal left superficial femoral artery measures 96 cm/s and is triphasic. Left popliteal velocity measures 66 cm/s and is triphasic. The posterior tibial artery velocity measures 118 cm/s and was triphasic. US/US arterial duplex LE BI IMPRESSION: 1. Normal bilateral peripheral arterial testing without evidence of hemodynamically significant stenosis.
== END 2020-10-09 08:24 | disposition home or self-care (01) ==
LOC: HO.US 08:23
PROVIDERS: Visit Provider Internal Medicine
DX: R09.89 Other specified symptoms and signs involving the circulatory and respiratory systems (principal); R20.2 Paresthesia of skin; R20.0 Anesthesia of skin
CPT/HCPCS: 93925

== ENCOUNTER 2020-10-29 08:35 | Outpatient (REF) | payer OTHER, SELFPAY | END 2020-10-29 08:36 | disposition home or self-care (01) | LOC: HO.MDS 08:35 | PROVIDERS: PCP Internal Medicine; Visit Provider Internal Medicine Pulmonary Disease | DX: J45.40 Moderate persistent asthma, uncomplicated (principal) | CPT/HCPCS: 85610; 96372; 99211 ==

== ENCOUNTER 2020-11-26 08:30 | Outpatient (REF) | payer OTHER, SELFPAY | END 2020-11-26 08:31 | disposition home or self-care (01) | LOC: HO.MDS 08:30 | PROVIDERS: PCP Internal Medicine; Visit Provider Internal Medicine Pulmonary Disease | DX: J45.40 Moderate persistent asthma, uncomplicated (principal) | CPT/HCPCS: 85610; 96372; 99211; J0517 ==

== ENCOUNTER → 2020-11-29 08:52 | Outpatient (BNVA) | payer OTHER, SELFPAY | PROVIDERS: PCP Internal Medicine; Visit Provider Internal Medicine Pulmonary Disease | DX: G47.33 Obstructive sleep apnea (adult) (pediatric) (principal); J45.40 Moderate persistent asthma, uncomplicated; Z99.89 Dependence on other enabling machines and devices; Z91.09 Other allergy status, other than to drugs and biological substances | CPT/HCPCS: 99212 ==

== ENCOUNTER 2020-12-24 08:16 | Outpatient (REF) | payer OTHER, SELFPAY | END 2020-12-24 08:17 | disposition home or self-care (01) | LOC: HO.MDS 08:16 | PROVIDERS: PCP Internal Medicine; Visit Provider Internal Medicine Pulmonary Disease | DX: J45.40 Moderate persistent asthma, uncomplicated (principal) | CPT/HCPCS: 85610; 96372; 99211; J0517 ==

== ENCOUNTER → 2021-01-21 08:02 | Outpatient (BNVA) | payer OTHER, SELFPAY | PROVIDERS: PCP Internal Medicine; Visit Provider Internal Medicine | DX: I48.19 Other persistent atrial fibrillation (principal); Z51.81 Encounter for therapeutic drug level monitoring; Z79.01 Long term (current) use of anticoagulants | CPT/HCPCS: 85610; 99211 ==

== ENCOUNTER 2021-02-11 09:41 | Outpatient (RCR) | payer OTHER, SELFPAY | END 2021-02-12 15:56 | disposition home or self-care (01) | LOC: HO.WCC 09:41 | PROVIDERS: Visit Provider Physician Assistant | DX: Z09 Encounter for follow-up examination after completed treatment for conditions other than malignant neoplasm (principal); K50.918 Crohn's disease, unspecified, with other complication; I48.91 Unspecified atrial fibrillation; I10 Essential (primary) hypertension; G62.9 Polyneuropathy, unspecified; I86.8 Varicose veins of other specified sites; Z87.2 Personal history of diseases of the skin and subcutaneous tissue; Z93.3 Colostomy status; Z79.01 Long term (current) use of anticoagulants | CPT/HCPCS: 99213 ==

== ENCOUNTER 2021-02-18 08:28 | Outpatient (REF) | payer OTHER, SELFPAY | END 2021-02-18 08:29 | disposition home or self-care (01) | LOC: HO.MDS 08:28 | PROVIDERS: PCP Internal Medicine; Visit Provider Internal Medicine Pulmonary Disease | DX: J45.40 Moderate persistent asthma, uncomplicated (principal) | CPT/HCPCS: 85610; 96372; 99211; J0517 ==

== ENCOUNTER 2021-02-26 10:59 | Emergency (ER) | payer OTHER, SELFPAY ==
[2021-02-26 11:17] VITALS: BP 145/87; PULSE 90; RESP 18; TEMP 36.9; O2SAT 96; BMI 46.6
--- NOTE | 2021-02-26 13:11 | ED_ITS ---
HPI - Wound/Laceration General Chief Complaint: Wound/Laceration Stated Complaint: bleeding wounds Time Seen by Provider: 02/26/21 13:11 Source: patient and family Mode of arrival: ambulatory Limitations: no limitations History of Present Illness HPI narrative: 65-year-old male presenting to the ED with complaints of bleeding wounds to his bottom over the past few days and was worse this morning when he developed a blood blister and it popped and he was bleeding all morning that is why he came here for further evaluation treatment. He reports that he has seen Dr. Pavon is a general surgeon for this and was told that this does not need a surgical intervention. He reports he also seen Dermatology and they placed him on steroids and told him there was nothing else he could do. He was also seen at the wound clinic and given a topical cream he is unsure the actual name but he reports they told him there is nothing further they can do and that most likely he has varicose veins. He denies any other symptoms complaints or concerns at this time. Onset (ago): year(s) (He has had this for over a year and worse in the past week) Location: back (Buttocks) Associated symptoms: other (Bleeding) Related Data Home Medications Medication Instructions Recorded Confirmed balsalazide 750 mg capsule 2,250 mg PO TID 03/02/20 02/18/21 cholecalciferol (vitamin D3) 125 125 mcg PO DAILY 09/11/20 02/18/21 mcg (5,000 unit) capsule krill oil 500 mg capsule mg PO 09/11/20 02/18/21 lactobacillus combination no.9 4 4,000 mmu cells PO DAILY 09/11/20 02/18/21 billion cell capsule (Adult 50 Plus Probiotic) multivitamin 1 tab PO DAILY 09/11/20 02/18/21 ferrous sulfate 325 mg (65 mg 325 mg PO BEDTIME 10/29/20 02/18/21 iron) tablet (FeroSul) metronidazole 0.75 % topical cream appl TOPICAL DAILY 10/29/20 02/18/21 triamcinolone acetonide 0.1 % TOPICAL 10/29/20 02/18/21 topical ointment betamethasone dipropionate 0.05 % TOPICAL 02/18/21 02/18/21 lotion Previous Rx's Medication Instructions Recorded inhalational spacing device #1 ea 09/11/20 (BreatheRite MDI Spacer) budesonide-formoterol HFA 160 2 puff INHALATION BID #10.2 g 10/08/20 mcg-4.5 mcg/actuation aerosol inhaler (Symbicort) warfarin 5 mg tablet 5 mg PO DAILY #30 tab 10/08/20 benralizumab 30 mg/mL subcutaneous 30 mg SUBCUT Q4W 28 Days #1 ml 10/11/20 syringe (Fasenra) furosemide 20 mg tablet 20 mg PO DAILY #30 tab 12/07/20 metoprolol tartrate 25 mg tablet 25 mg PO BID #60 tab 12/07/20 albuterol sulfate 90 mcg/actuation 2 puff INHALATION Q4H PRN #17 g 01/07/21 aerosol inhaler (ProAir HFA) Allergies Allergy/AdvReac Type Severity Reaction Status Date / Time No Known Allergies Allergy Verified 02/18/21 08:14 Review of Systems Review of Systems: Constitutional : No Fever, No Chills, Cardiovascular : No Chest Pain, No SOB Respiratory : No Dyspnea Gastrointestinal : No abdominal pain Musculoskeletal : No Joint Swelling Skin : positive skin wounds, No skin laceration, No Foreign bodies, No rash, No surrounding erythema Neuro : No Weakness, No Numbness/tingling Psych : No SI/HI/thoughts of self injury Yes all other systems are reviewed and are negative PMFSH Past Medical History Attestation statement: The following information was validated with the patient. 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 Decreased pulses in feet Empyema lung Empyema of left pleural space Moderate persistent asthma Numbness and tingling of lower extremity FABIOLA on CPAP Persistent atrial fibrillation Vitamin D deficiency Surgical History History of appendectomy History of bowel resection History of creation of ostomy Family History Family History Father Emphysema lung HTN (hypertension) Pulmonary fibrosis Mother HTN (hypertension) Social History Social History Housing: Condominium Alcohol intake: never Patient Tobacco Use Status: Never used Tobacco e-Cigarette/Vaping Use: Never Used Second Hand Smoke Exposure: No Advance Directives: No service: No Current occupational status: retired Physical Exam Vital Signs: Vital Signs: Last Vital Signs Temp 98.4 F 02/26/21 11:17 Pulse 90 02/26/21 11:17 Resp 18 02/26/21 11:17 BP 145/87 H 02/26/21 11:17 Pulse Ox 96 02/26/21 11:17 Body Mass Index 46.6 vital signs have been reviewed as normal and appeared to be correct. Blood pressure normal. Heart rate normal. Respiration rate normal. Temperature normal. Oxygen saturation normal. Appearance: Alert. Oriented X3. No acute distress. Head: Normal external exam. Normocephalic. Atraumatic. Eyes: PERRLA. EOMI. Conjunctiva and sclera normal. Eyelids normal. ENT: Pharynx normal. Uvula midline. Moist mucous membranes. Neck: Normal inspection. Neck supple. FROM. No adenopathy. Thyroid Normal. No meningeal signs. No neck mass noted. CVS: Normal heart rate and rhythm. Heart sound normal. Respiratory: No respiratory distress. Painless inspiration. Back: Full range of motion noted. No rashes/lesion/induration/fluctuance or signs of infection noted. Buttocks: see pictures Skin: Skin warm and dry. Normal skin color. Normal skin turgor. No rashes/lesions/lacerations noted. Extremities: Extremities exhibit normal range of motion. Extremities nontender. Neuro: Oriented X 3. No motor deficit. No sensory deficit. Reflexes normal. Normal steady gait. No focal neuro deficits noted. Vascular: + radial pulses/+ 2 distal pedal pulses/+2 dorsalis pedis b/l. Normal cap refill. No cyanosis noted to upper extremity nails and lower extremity toes nails. Course Course Course Narrative: 65-year-old male presenting to the ED with complaints of bleeding wounds to his bottom over the past few days and was worse this morning when he developed a blood blister and it popped and he was bleeding all morning that is why he came here for further evaluation treatment. He reports that he has seen Dr. Pavon is a general surgeon for this and was told that this does not need a surgical intervention. He reports he also seen Dermatology and they placed him on steroids and told him there was nothing else he could do. He was also seen at the wound clinic and given a topical cream he is unsure the actual name but he reports they told him there is nothing further they can do and that most likely he has varicose veins. He denies any other symptoms complaints or concerns at this time. I placed pictures in the patient's chart it appears that the patient has varicose veins on the buttocks I consulted with Dr. Carney the vascular surgeon he reported that no vascular intervention will be indicated at this time to vascular although General surgery might be about a referral therefore will refer back to General surgery and instructions to continue taking his previously prescribed medications as previously prescribed and to return if any new or worsening symptoms. Patient understands agrees with this plan. MDM - Wound/Laceration Medical Records Attestation: I reviewed the patient's medical records. Discharge Plan Discharge Clinical Impression: Varicose veins of anus or rectum Patient Disposition: Home, Self-Care Instructions: Venous Insufficiency (DC), Vein Stripping (DC) Prescriptions: No Action budesonide-formoterol [Symbicort] 160-4.5 mcg/actuation HFA aerosol inhaler 2 puff inhalation BID Qty: 10.2 RF: 6 warfarin 5 mg tablet 5 mg PO DAILY Qty: 30 RF: 3 Fasenra 30 mg/mL syringe 30 mg subcut Q4W 28 Days Qty: 1 RF: 12 metoprolol tartrate 25 mg tablet 25 mg PO BID Qty: 60 RF: 2 furosemide 20 mg tablet 20 mg PO DAILY Qty: 30 RF: 2 albuterol sulfate [ProAir HFA] 90 mcg/actuation HFA aerosol inhaler 2 puff inhalation Q4H PRN (Reason: shortness of breath or wheezing) Qty: 17 RF: 2 cholecalciferol (vitamin D3) 125 mcg (5,000 unit) capsule 125 mcg PO DAILY RF: 0 krill oil 500 mg capsule PO RF: 0 Adult 50 Plus Probiotic 4 billion cell capsule 4,000 mmu cells PO DAILY RF: 0 multivitamin Tablet 1 tab PO DAILY RF: 0 (DME) BreatheRite MDI Spacer Spacer See Rx Instructions .ROUTE .MEDSUPPLY Qty: 1 RF: 0 metronidazole 0.75 % cream topical DAILY RF: 0 triamcinolone acetonide 0.1 % ointment topical RF: 0 ferrous sulfate [FeroSul] 325 mg (65 mg iron) tablet 325 mg PO BEDTIME RF: 0 balsalazide 750 mg capsule 2,250 mg PO TID RF: 0 betamethasone dipropionate 0.05 % lotion topical RF: 0 Referrals: Isabel Tilley MD [Primary Care Provider] - 2 days Memo Mata MD [Physician] - 2 days
== END 2021-02-26 13:39 | disposition home or self-care (01) ==
PROVIDERS: Emergency Provider Emergency Medicine; PCP Internal Medicine
DX: I86.8 Varicose veins of other specified sites (principal); I48.19 Other persistent atrial fibrillation; Z79.01 Long term (current) use of anticoagulants
CPT/HCPCS: 99283

== ENCOUNTER → 2021-03-04 08:17 | Outpatient (BNVA) | payer OTHER, SELFPAY | PROVIDERS: PCP Internal Medicine; Visit Provider Internal Medicine | DX: I48.19 Other persistent atrial fibrillation (principal); Z51.81 Encounter for therapeutic drug level monitoring; Z79.01 Long term (current) use of anticoagulants | CPT/HCPCS: 85610; 99211 ==

== ENCOUNTER → 2021-03-07 08:22 | Outpatient (BNVA) | payer OTHER, SELFPAY | PROVIDERS: PCP Internal Medicine; Referring Provider Internal Medicine; Visit Provider Internal Medicine | DX: I48.19 Other persistent atrial fibrillation (principal); G47.33 Obstructive sleep apnea (adult) (pediatric); R07.89 Other chest pain; Z79.01 Long term (current) use of anticoagulants | CPT/HCPCS: 93005; 99212 ==

== ENCOUNTER → 2021-03-12 09:12 | Outpatient (BNVA) | payer OTHER, SELFPAY | PROVIDERS: PCP Internal Medicine; Visit Provider Internal Medicine Pulmonary Disease | DX: J45.40 Moderate persistent asthma, uncomplicated (principal); G47.33 Obstructive sleep apnea (adult) (pediatric); Z99.89 Dependence on other enabling machines and devices; Z91.09 Other allergy status, other than to drugs and biological substances | CPT/HCPCS: 99212 ==

== ENCOUNTER → 2021-03-13 09:31 | Outpatient (BNVA) | payer OTHER, SELFPAY | PROVIDERS: PCP Internal Medicine; Referring Provider Internal Medicine; Visit Provider Surgery | DX: R21 Rash and other nonspecific skin eruption (principal) | CPT/HCPCS: 99212 ==

== ENCOUNTER → 2021-03-25 07:58 | Outpatient (BNVA) | payer OTHER, SELFPAY | PROVIDERS: PCP Internal Medicine; Visit Provider Internal Medicine | DX: I48.19 Other persistent atrial fibrillation (principal); Z51.81 Encounter for therapeutic drug level monitoring; Z79.01 Long term (current) use of anticoagulants | CPT/HCPCS: 85610; 99211 ==

== ENCOUNTER 2021-04-15 08:18 | Outpatient (REF) | payer OTHER, SELFPAY | END 2021-04-15 08:19 | disposition home or self-care (01) | LOC: HO.MDS 08:18 | PROVIDERS: PCP Internal Medicine; Visit Provider Internal Medicine Pulmonary Disease | DX: J45.40 Moderate persistent asthma, uncomplicated (principal) | CPT/HCPCS: 85610; 96372; 99211; J0517 ==

== ENCOUNTER → 2021-05-13 07:59 | Outpatient (BNVA) | payer OTHER, SELFPAY | PROVIDERS: PCP Internal Medicine; Visit Provider Internal Medicine | DX: I48.19 Other persistent atrial fibrillation (principal); Z51.81 Encounter for therapeutic drug level monitoring; Z79.01 Long term (current) use of anticoagulants | CPT/HCPCS: 85610; 99211 ==

== ENCOUNTER 2021-05-27 22:09 | Emergency (ER) | payer OTHER, SELFPAY ==
--- NOTE | 2021-05-27 | ECG_ITS ---
Test Reason : chest tightness Blood Pressure : / mmHG Vent. Rate : 072 BPM Atrial Rate : 000 BPM P-R Int : 000 ms QRS Dur : 096 ms QT Int : 414 ms P-R-T Axes : 000 -25 015 degrees QTc Int : 453 ms Atrial fibrillation Abnormal ECG When compared with ECG of 15-JAN-2020 12:41, No significant change was found Referred By: Generic ED Physician Electronically Signed By:Shaggy Tejada
--- NOTE | ~2021-05-27 | XR_ITS ---
EXAMINATION: XR CHEST CLINICAL INFORMATION: Asthma COMPARISON: 08/28/2020 TECHNIQUE: Frontal view of the chest was obtained. FINDINGS: No significant abnormality is noted involving the heart, lungs, mediastinum, bony thorax or soft tissues. Again seen are some coarse perihilar markings along with some minimal left basilar atelectasis. XR/XR chest 1V IMPRESSION: No acute intrathoracic disease.
--- NOTE | ~2021-05-27 | CT_ITS ---
EXAMINATION: CT ANGIOGRAM OF THE CHEST WITH AND WITHOUT CONTRAST (CT PULMONARY ANGIOGRAM FOR PE) CLINICAL INFORMATION: Reason for Exam r/o PE COMPARISON: Chest x-ray 05/27/2021 TECHNIQUE: Prior to contrast administration, noncontrast localization images were obtained. Subsequently, multidetector volumetric imaging was performed from the thoracic inlet to below the diaphragms following the administration of 100 mL Omnipaque 350 intravenous contrast. No contrast reaction reported Sagittal, coronal, and MIP oblique sagittal reformatted images were obtained on the CT workstation, uploaded to PACS, and reviewed. This CT examination was performed using dose optimization techniques as appropriate, variously including the following: *Automated exposure control *Adjustment of mA and/or kV according to patient size (this includes techniques or standardized protocols for targeted exams where dose is matched to indication/reason for exam; i.e. extremities or head) *Use of iterative reconstruction technique Total exam dose-length product 589 mGy-cm FINDINGS: QUALITY OF STUDY/CONTRAST BOLUS: Suboptimal. PULMONARY ARTERIES: No central pulmonary embolus is identified. However, there is inadequate assessment of the segmental and subsegmental vessels due to suboptimal bolus timing. THORACIC AORTA: No aneurysm or dissection. LUNG: Curvilinear opacities are noted bilaterally, most prominently in the left lower lobe, favoring atelectasis. The possibility of mild superimposed acute groundglass opacity in the anterior upper lobes is difficult to entirely exclude. Few scattered calcified granulomas are noted. PLEURA: Pleural thickening is noted posteriorly towards the lung bases, with right-sided calcifications. No pneumothorax. MEDIASTINUM: Visualized thyroid gland is grossly unremarkable though not well assessed due to artifact. There are subcentimeter mediastinal lymph nodes within the range of normal variation. Cardiac size is within normal limits; no pericardial effusion. CHEST WALL/AXILLA: No axillary or internal mammary lymphadenopathy. OSSEOUS STRUCTURES: Chronic-appearing deformity of the left eighth rib. UPPER ABDOMEN: Partially visualized gallstone in the proximal gallbladder. No reflux of contrast into the hepatic veins to suggest elevated right heart pressures. CT/CT angio chest PE protocol IMPRESSION: 1. While no central pulmonary embolus is seen, there is inadequate assessment of the segmental and subsegmental vessels due to bolus timing, and therefore emboli at these levels cannot be excluded. 2. Mild bilateral atelectasis. Possible superimposed mild infectious/inflammatory groundglass opacity in the anterior upper lungs. 3. Partially visualized cholelithiasis. If there is clinical concern for cholecystitis, right upper quadrant ultrasound is recommended. VTE: negative
[2021-05-27 22:25] VITALS: BP 118/75; PULSE 77; RESP 20; TEMP 36.9; O2SAT 96; BMI 45.9
[2021-05-28] VITALS: BP 105/57; PULSE 77; RESP 16; TEMP 37.1
--- NOTE | 2021-05-28 00:19 | ED_ITS ---
HPI - Asthma General Chief Complaint: Asthma Stated Complaint: sob..asthma Time Seen by Provider: 05/28/21 00:04 Source: patient Mode of arrival: ambulatory Limitations: no limitations History of Present Illness HPI Narrative: Patient comes to emergency room complaining shortness of breath. Patient states that he has asthma, usually he responds well to his inhaler. Patient reports that the cold weather makes symptoms worse. However, today he did not respond well to his inhaler. Patient denies history of COPD. Patient complaining of chest tightness, no pain. Related Data Home Medications Medication Instructions Recorded Confirmed balsalazide 750 mg capsule 2,250 mg PO TID 03/02/20 05/13/21 cholecalciferol (vitamin D3) 125 125 mcg PO DAILY 09/11/20 05/13/21 mcg (5,000 unit) capsule krill oil 500 mg capsule mg PO 09/11/20 05/13/21 lactobacillus combination no.9 4 4,000 mmu cells PO DAILY 09/11/20 05/13/21 billion cell capsule (Adult 50 Plus Probiotic) multivitamin 1 tab PO DAILY 09/11/20 05/13/21 Previous Rx's Medication Instructions Recorded inhalational spacing device #1 ea 09/11/20 (BreatheRite MDI Spacer) budesonide-formoterol HFA 160 2 puff INHALATION BID #10.2 g 10/08/20 mcg-4.5 mcg/actuation aerosol inhaler (Symbicort) benralizumab 30 mg/mL subcutaneous 30 mg SUBCUT Q4W 28 Days #1 ml 10/11/20 syringe (Fasenra) albuterol sulfate 90 mcg/actuation 2 puff INHALATION Q4H PRN #17 g 01/07/21 aerosol inhaler (ProAir HFA) metoprolol tartrate 25 mg tablet 25 mg PO BID #60 tab 03/04/21 warfarin 5 mg tablet 5 mg PO DAILY #30 tab 03/04/21 furosemide 20 mg tablet 20 mg PO DAILY #30 tab 03/07/21 prednisone 50 mg tablet 50 mg PO DAILY #5 tab 05/28/21 Allergies Allergy/AdvReac Type Severity Reaction Status Date / Time No Known Allergies Allergy Verified 05/27/21 22:24 Review of Systems Review of Systems: Constitutional : No Weight loss, No Fever, No Chills, No Night Sweats, No Fatigue, No Malaise ENT/Mouth : No Hearing loss, No Ear Pain, No Nasal Congestion, No Sinus Pain, No Hoarseness, No sore throat, No Rhinorrhea, No Swallowing Difficulty Eyes: No Eye Pain, No Swelling, No Redness, No Foreign Body, No Discharge, No Vision Changes Cardiovascular : Complaining of chest tightness sensation, No Chest Pain, No SOB, no orthopnea, no palpitations Respiratory : Complaining of mild coughing, wheezing, feeling chest tightness/shortness of breath Gastrointestinal : No Nausea, No Vomiting, No Diarrhea, No Constipation, No abdominal Pain, No Hematochezia, No Melena Genitourinary : no irregular bleeding, No Dysuria, No Urinary Frequency, No Hematuria, No Urinary Incontinence, No Urgency, No Flank Pain, No Urinary Flow Changes, No Hesitancy Musculoskeletal : No joint pain, No Myalgias, No Joint Swelling Skin : No Skin Lesions, No rash Neuro : No Weakness, No Numbness, No Paresthesias, No Loss of Consciousness, No Dizziness, No Headache Psych : No Anxiety/Panic, No Depression, No SI/HI/AH/VH, No Social Issues, Heme/Lymph: No Bruising, No Bleeding,No Lymphadenopathy Endocrine : No Polyuria, No Polydipsia, No Temperature Intolerance PMFSH Past Medical History Medical History A-fib Acquired deformity of toenail Anal fistula Anemia Asthma Colostomy in place Crohn disease Current use of intermediate anticoagulation Decreased pulses in feet Empyema lung Empyema of left pleural space Moderate persistent asthma Numbness and tingling of lower extremity FABIOLA on CPAP Persistent atrial fibrillation Skin macule or macular rash Vitamin D deficiency Surgical History History of appendectomy History of bowel resection History of creation of ostomy Family History Family History Father Emphysema lung HTN (hypertension) Pulmonary fibrosis Mother HTN (hypertension) Social History Social History Housing: Condominium Alcohol intake: never Patient Tobacco Use Status: Never used Tobacco e-Cigarette/Vaping Use: Never Used Second Hand Smoke Exposure: No Use of substances other than those prescribed or required for medical reasons: No Advance Directives: No service: No Current occupational status: retired Physical Exam Vital Signs: Vital Signs: Last Vital Signs Temp 98.6 F 05/28/21 02:00 Pulse 92 05/28/21 02:00 Resp 16 05/28/21 02:00 BP 102/58 L 05/28/21 02:00 Pulse Ox 94 05/28/21 02:00 BMI result Body Mass Index 45.9 Const: Other: Appearance: Alert. Oriented X3. No acute distress. Eyes: Pupils equal, round and reactive to light. ENT: Pharynx normal. Neck: Normal inspection. Neck supple. No lymph nodes noted. No crepitus CVS: Normal heart rate and rhythm. Pulses normal. Normal S1 and S2 Respiratory: No respiratory distress. Speaking in full sentences, very mild occasional wheezing Abdomen: Soft and nontender. No rigidity. No distention. good BS x4 Skin: Skin warm and dry. Normal skin color. Normal skin turgor. Extremities: No lower extremity edema. No lower extremity edema. No Lacerations. No Rash Neuro: Oriented X 3. No motor deficit. No sensory deficit. Moving all extermities. No slurred speech. Course Course Course Narrative: Patient feeling short of breath, patient is being giving a nebulization treatment, Solu-Medrol. At this time magnesium not indicated. Due to patient's medical conditions, we will go ahead and do a full workup. The patient's knowledge, he has never been diagnosed with congestive heart failure. Chest x- ray normal Troponin x2 negative. Patient's pain likely musculoskeletal. Patient no longer wheezing, oxygen saturation 98% on room air Patient was ambulated. Oxygen saturation remained above 92%. Patient's lungs are completely clear. However patient states that with exertion he feels short of breath. Will go ahead and do a chest CT for PE. PE study was suboptimal but negative. At this time, patient is already anticoagulated, no tachycardia Patient feeling better No wheezing, no shortness of breath, oxygen saturation 98%. Patient will follow-up with his sox analyst Dr. Hernández [facility] - Asthma Lab Data Result diagrams: 05/28/21 00:45 05/28/21 00:45 Labs: Lab Results 05/28/21 05/28/21 05/28/21 Range/Units 00:45 00:45 00:45 WBC 11.1 H (4.8-10.8) X10*3/uL RBC 5.35 (4.60-5.80) X10*6/uL Hgb 14.2 (14.0-18.0) g/dl Hct 47.3 (42.0-52.0) % MCV 88.4 (80.0-98.0) fL MCH 26.5 L (27.0-33.0) pg MCHC 30.0 L (31.0-36.0) g/dl RDW 15.7 (11.0-16.0) % Plt Count 273 (160-400) X10*3/uL MPV 11.1 (9.4-12.4) fL Immature Gran % (Auto) 0.4 (0.0-0.4) % Neut % (Auto) 82.0 H (45-73) % Lymph % (Auto) 8.9 L (20-40) % [place] % (Auto) 8.6 (2-11) % Eos % (Auto) 0.0 (0-4) % Baso % (Auto) 0.1 (0-2) % Lymph # (Auto) 1.0 L (1.2-4.9) X10*3/uL [place] # (Auto) 1.0 (0.1-1.2) X10*3/uL Eos # (Auto) 0.0 (0.0-0.4) X10*3/uL Baso # (Auto) 0.0 (0.0-0.2) X10*3/uL Abs Immat Gran (auto) 0.04 H (0.00-0.03) X10*3/uL Absolute Neuts (auto) 9.1 H (2.0-8.3) x10*3/uL Absolute Nucleated RBC 0.000 (0.0-0.012) X10*3/uL Nucleated RBC % (auto) 0.0 (0.0-0.2) /100WBC PT 24.3 H (9.9-13.0) SEC INR 2.1 H (0.9-1.1) Sodium 138 (135-145) mmol/L Potassium 3.9 (3.3-5.1) mmol/L Chloride 103 (96-108) mmol/L Carbon Dioxide 26 (22-29) mmol/L Anion Gap 13 (12-20) BUN 15 (9-16) mg/dL Creatinine 1.16 (0.5-1.4) mg/dL Estim Creat Clear Calc 92.6 Estimated GFR > 60 Random Glucose 123 H (60-115) mg/dL Calcium 9.1 D (8.4-10.2) mg/dL Magnesium 2.2 (1.6-2.6) mg/dL Total Bilirubin 0.7 (0.0-1.0) mg/dL Direct Bilirubin 0.3 (0.0-0.5) mg/dL AST 32 (5-37) U/L ALT 28 (0-40) U/L Alkaline Phosphatase 119 H (39-117) U/L Troponin I High Sens (<3.5-35.0) ng/L B-Natriuretic Peptide (<100) pg/mL Total Protein 7.3 (6.5-8.0) g/dL Albumin 3.8 (3.5-5.0) g/dL COVID-19 (LALITHA) (Negative) COVID-19 Clin Com 05/28/21 05/28/21 05/28/21 Range/Units 00:45 02:28 02:49 WBC (4.8-10.8) X10*3/uL RBC (4.60-5.80) X10*6/uL Hgb (14.0-18.0) g/dl Hct (42.0-52.0) % MCV (80.0-98.0) fL MCH (27.0-33.0) pg MCHC (31.0-36.0) g/dl RDW (11.0-16.0) % Plt Count (160-400) X10*3/uL MPV (9.4-12.4) fL Immature Gran % (Auto) (0.0-0.4) % Neut % (Auto) (45-73) % Lymph % (Auto) (20-40) % [place] % (Auto) (2-11) % Eos % (Auto) (0-4) % Baso % (Auto) (0-2) % Lymph # (Auto) (1.2-4.9) X10*3/uL [place] # (Auto) (0.1-1.2) X10*3/uL Eos # (Auto) (0.0-0.4) X10*3/uL Baso # (Auto) (0.0-0.2) X10*3/uL Abs Immat Gran (auto) (0.00-0.03) X10*3/uL Absolute Neuts (auto) (2.0-8.3) x10*3/uL Absolute Nucleated RBC (0.0-0.012) X10*3/uL Nucleated RBC % (auto) (0.0-0.2) /100WBC PT (9.9-13.0) SEC INR (0.9-1.1) Sodium (135-145) mmol/L Potassium (3.3-5.1) mmol/L Chloride (96-108) mmol/L Carbon Dioxide (22-29) mmol/L Anion Gap (12-20) BUN (9-16) mg/dL Creatinine (0.5-1.4) mg/dL Estim Creat Clear Calc Estimated GFR Random Glucose (60-115) mg/dL Calcium (8.4-10.2) mg/dL Magnesium (1.6-2.6) mg/dL Total Bilirubin (0.0-1.0) mg/dL Direct Bilirubin (0.0-0.5) mg/dL AST (5-37) U/L ALT (0-40) U/L Alkaline Phosphatase (39-117) U/L Troponin I High Sens < 3.5 < 3.5 (<3.5-35.0) ng/L B-Natriuretic Peptide 37 (<100) pg/mL Total Protein (6.5-8.0) g/dL Albumin (3.5-5.0) g/dL COVID-19 (LALITHA) Negative (Negative) COVID-19 Clin Com See Note Imaging Data Chest x-ray: Radiologist's impression: No significant abnormality is noted involving the heart, lungs, mediastinum, bony thorax or soft tissues. Again seen are some coarse perihilar markings along with some minimal left basilar atelectasis. XR/XR chest 1V IMPRESSION: No acute intrathoracic disease. Discharge Plan Discharge Clinical Impression: Asthma exacerbation Patient Disposition: Home, Self-Care Instructions: Asthma (ED) Additional Instructions: Please follow-up with your primary care physician tomorrow. If you have any worsening or new symptoms, please return to the emergency room or call 911 Prescriptions: New prednisone 50 mg tablet 50 mg PO DAILY Qty: 5 0RF No Action budesonide-formoterol [Symbicort] 160-4.5 mcg/actuation HFA aerosol inhaler 2 puff inhalation BID Qty: 10.2 6RF Fasenra 30 mg/mL syringe 30 mg subcut Q4W 28 Days Qty: 1 12RF Rx Instructions: Every 4 weeks for the 1st 3 doses, then every 8 weeks albuterol sulfate [ProAir HFA] 90 mcg/actuation HFA aerosol inhaler 2 puff inhalation Q4H PRN (Reason: shortness of breath or wheezing) Qty: 17 2RF metoprolol tartrate 25 mg tablet 25 mg PO BID Qty: 60 2RF warfarin 5 mg tablet 5 mg PO DAILY Qty: 30 3RF Protocol: Dose Management Condition: Thursday (Week One) Dose/Route: 0 mg Instruction: 0 tablets Condition: Thursday Dose/Route: 5 mg Instruction: 1 x 5 mg tablet Condition: Thursday Dose/Route: 2.5 mg Instruction: 0.5 x 5 mg tablets Condition: Thursday Dose/Route: 2.5 mg Instruction: 0.5 x 5 mg tablets Condition: Dose/Route: 5 mg Instruction: 1 x 5 mg tablet Condition: Thursday Dose/Route: 2.5 mg Instruction: 0.5 x 5 mg tablets Condition: Thursday Dose/Route: 2.5 mg Instruction: 0.5 x 5 mg tablets Condition: Thursday (Week Two) Dose/Route: 2.5 mg Instruction: 0.5 x 5 mg tablets Condition: Thursday Dose/Route: 5 mg Instruction: 1 x 5 mg tablet Condition: Thursday Dose/Route: 2.5 mg Instruction: 0.5 x 5 mg tablets Condition: Thursday Dose/Route: 2.5 mg Instruction: 0.5 x 5 mg tablets Condition: Dose/Route: 5 mg Instruction: 1 x 5 mg tablet Condition: Thursday Dose/Route: 2.5 mg Instruction: 0.5 x 5 mg tablets Condition: Thursday Dose/Route: 2.5 mg Instruction: 0.5 x 5 mg tablets Protocol Text: Adjustment Start Date: Thursday05/13/21 INR Value: 2.3 INR Date: 05/13/21 Recheck Date: 06/12/21 Additional Instructions: INR IS IN RANGE NO GREENS TODAY OR TOMORROW MISSED DOSE ON THURSDAY, CONTINUE USUAL DOSING AND BALANCE GREENS AND REDS IN DIET furosemide 20 mg tablet 20 mg PO DAILY Qty: 30 2RF cholecalciferol (vitamin D3) 125 mcg (5,000 unit) capsule 125 mcg PO DAILY 0RF krill oil 500 mg capsule PO 0RF Adult 50 Plus Probiotic 4 billion cell capsule 4,000 mmu cells PO DAILY 0RF Rx Instructions: administer with a meal multivitamin Tablet 1 tab PO DAILY 0RF (DME) BreatheRite MDI Spacer Spacer See Rx Instructions .ROUTE .MEDSUPPLY Qty: 1 0RF Rx Instructions: As directed balsalazide 750 mg capsule 2,250 mg PO TID 0RF
[2021-05-28] MEDS: Albuterol Sulfate (0.083%) 2.5 MG/3 ML VIAL.NEB 5 MG INHALE (00:28)
[2021-05-28 00:29] VITALS: PULSE 77; RESP 18; O2SAT 96
[2021-05-28] MEDS: methylPREDNISolone Sod Succ 125 MG/2 ML VIAL IVPUSH (00:52)
[2021-05-28 00:59] LABS: MANUAL DIFF FLAG NO
[2021-05-28 01:01] LABS: Basophils Percent Auto 0.1 % (0-2); Hematocrit 47.3 % (42.0-52.0); Hemoglobin 14.2 g/dl (14.0-18.0); Imm Gran Abs Auto 0.04 X10*3/uL (0.00-0.03); Imm Gran Pct Auto 0.4 % (0.0-0.4); Lymphocytes Percent Auto 8.9 % (20-40); Mean Corpuscular Hemoglobin 26.5 pg (27.0-33.0); Mean Corpuscular Volume 88.4 fL (80.0-98.0); Mean Platelet Volume 11.1 fL (9.4-12.4); Monocytes Percent Auto 8.6 % (2-11); Neutrophils Absolute Auto 9.1 x10*3/uL (2.0-8.3); Platelet Count 273 X10*3/uL (160-400); Red Blood Count 5.35 X10*6/uL (4.60-5.80); Red Cell Distribution Width 15.7 % (11.0-16.0); White Blood Count 11.1 X10*3/uL (4.8-10.8)
[2021-05-28 01:12] LABS: INTERNATIONAL NORM RATIO 2.1 (0.9-1.1); Prothrombin Time 24.3 SEC (9.9-13.0)
[2021-05-28 01:19] LABS: B Type Natriuretic Peptide 37 pg/mL (<100); Troponin-I High Sensitivity < 3.5 ng/L (<3.5-35.0)
[2021-05-28 01:22] LABS: Alanine Aminotransferase 28 U/L (0-40); Albumin Level 3.8 g/dL (3.5-5.0); Alkaline Phosphatase 119 U/L (39-117); Anion Gap 13 (12-20); Aspartate Amino Transferase 32 U/L (5-37); Bilirubin Direct 0.3 mg/dL (0.0-0.5); Bilirubin Total 0.7 mg/dL (0.0-1.0); Blood Urea Nitrogen 15 mg/dL (9-16); Calcium 9.1 mg/dL (8.4-10.2); Carbon Dioxide 26 mmol/L (22-29); Chloride 103 mmol/L (96-108); Creatinine Clr Calc Pharmacy 92.6; Estimated Glomerular Filt Rate > 60; Glucose Random 123 mg/dL (60-115); Magnesium 2.2 mg/dL (1.6-2.6); Potassium 3.9 mmol/L (3.3-5.1); Sodium 138 mmol/L (135-145); Total Protein 7.3 g/dL (6.5-8.0)
[2021-05-28 02:00] VITALS: BP 102/58; PULSE 92; RESP 16; TEMP 37; O2SAT 94
[2021-05-28 02:48] LABS: COVID-19 Test Negative (Negative)
[2021-05-28 03:17] LABS: Troponin-I High Sensitivity < 3.5 ng/L (<3.5-35.0)
[2021-05-28] MEDS: iohexoL 350 MG/ML 100 ML INFUS..BTL IV (05:02)
== END 2021-05-28 06:44 | disposition home or self-care (01) ==
PROVIDERS: Emergency Provider Emergency Medicine; PCP Internal Medicine
DX: J45.901 Unspecified asthma with (acute) exacerbation (principal); R06.02 Shortness of breath; Z20.822 Contact with and (suspected) exposure to COVID-19; Z79.899 Other long term (current) drug therapy
CPT/HCPCS: 36415; 71045; 71275; 80048; 80076; 83735; 83880; 84484; 85025; 85610; 87635; 93005; 96374; 99284; J2930; Q9967

== ENCOUNTER 2021-06-04 22:41 | Inpatient (IN) | payer OTHER, SELFPAY ==
--- NOTE | 2021-06-04 | ECG_ITS ---
Test Reason : CHEST PAIN Blood Pressure : / mmHG Vent. Rate : 075 BPM Atrial Rate : 000 BPM P-R Int : 000 ms QRS Dur : 090 ms QT Int : 400 ms P-R-T Axes : 000 -26 016 degrees QTc Int : 446 ms Atrial fibrillation Abnormal ECG When compared with ECG of 27-MAY-2021 22:49, No significant change was found Referred By: Generic ED Physician Electronically Signed By:KAYLIE BANG MD
--- NOTE | ~2021-06-04 | CT_ITS ---
EXAMINATION: CT CHEST WITHOUT CONTRAST CLINICAL INFORMATION: Shortness of breath. Question pneumonia. COMPARISON: 06/06/2021 radiograph TECHNIQUE: Multidetector volumetric CT imaging of the chest was done. Axial MIP volume rendering provided. Sagittal and coronal reformatted images were obtained. This CT examination was performed using dose optimization techniques as appropriate, variously including the following: *Automated exposure control *Adjustment of mA and/or kV according to patient size (this includes techniques or standardized protocols for targeted exams where dose is matched to indication/reason for exam; i.e. extremities or head) *Use of iterative reconstruction technique DLP: 398 mGy-cm FINDINGS: CLINICAL EDUCATION MANAGER: Cardiac leads overlie the chest. LUNGS: The central airways are patent. Linear left basilar atelectasis/scarring. Mild bronchial wall thickening noted. Minimal groundglass opacity anteriorly likely representing scarring. No dense consolidation. No pneumothorax. MEDIASTINUM: The mediastinum is normal. PLEURA: There is no pleural effusion. Bilateral pleural calcifications are noted. AXILLA: No lymphadenopathy. UPPER ABDOMEN: Low-attenuation of the liver suggestive of steatosis. Stone in the gallbladder lumen. Again there appears to be mild stranding adjacent to the gallbladder. This is only partially visualized. OSSEOUS STRUCTURES: No acute or suspicious osseous abnormality. Degenerative changes of the spine. CT/CT chest wo con IMPRESSION: No consolidation. Chronic changes of the lungs with pleural calcifications noted. Bronchial wall thickening can be seen with a small airways process such as asthma or atypical/viral infection. This could also be chronic. Cholelithiasis. Mild inflammatory changes adjacent to the gallbladder are suggested, partially visualized on this study. Fleischner guidelines were followed.
--- NOTE | ~2021-06-04 | XR_ITS ---
EXAMINATION: XR CHEST CLINICAL INFORMATION: Shortness of breath COMPARISON: 06/04/2021 TECHNIQUE: Frontal view of the chest was obtained. FINDINGS: Cardiac leads overlie the chest. The lungs are well expanded. Mild bronchial wall thickening. There is no focal consolidation, edema, or effusion. No pneumothorax. The cardiomediastinal silhouette is within normal limits. No acute osseous abnormality. XR/XR chest 1V IMPRESSION: No dense consolidation. Bronchial wall thickening can be seen with a small airways process such as asthma or atypical/viral infection.
--- NOTE | ~2021-06-04 | XR_ITS ---
EXAMINATION: XR CHEST CLINICAL INFORMATION: Chest pain COMPARISON: 05/28/2021 TECHNIQUE: Frontal view of the chest was obtained. FINDINGS: Lung volumes are symmetric. No focal consolidation is seen. Minimal atelectasis is suspected towards the left base. No evidence of pneumothorax, significant pleural effusion, or overt pulmonary edema. The cardiomediastinal contour is unremarkable. No acute osseous findings are seen. XR/XR chest 1V IMPRESSION: Minimal left basilar atelectasis without additional acute findings.
--- NOTE | ~2021-06-04 | US_ITS ---
EXAMINATION: US ABDOMEN LIMITED CLINICAL INFORMATION: Right upper quadrant pain. COMPARISON: CT 12/25/2018 TECHNIQUE: Real-time imaging of the right upper quadrant abdominal viscera. FINDINGS: Per technologist report, examination is limited due to patient body habitus and inability to hold breath. PANCREAS: The visualized proximal portion of the pancreas is unremarkable. The distal portion is obscured secondary to overlying bowel gas. LIVER: Limited visualization. The liver is normal in size. The liver contour is normal. Parenchymal echogenicity is normal. No focal hepatic lesion is identified. There is no intrahepatic biliary duct dilatation seen. GALLBLADDER: Gallbladder sludge is present, and there may be mild associated cholelithiasis. Gallbladder wall thickness is within normal limits. No pericholecystic fluid is seen. Right upper quadrant tenderness was reported during the exam. COMMON BILE DUCT: Normal in caliber measuring 0.5 cm in diameter. RIGHT KIDNEY: Limited visualization and not well evaluated. FREE FLUID: None. US/US abdomen limited IMPRESSION: Gallbladder sludge with possible superimposed cholelithiasis. Although there are no additional specific sonographic findings of cholecystitis, right upper quadrant tenderness was reported during the exam. If there remains clinical concern for cholecystitis, this may be further assessed with nuclear medicine hepatobiliary scan.
--- NOTE | ~2021-06-04 | CT_ITS ---
EXAMINATION: CT ABDOMEN AND PELVIS WITH CONTRAST CLINICAL INFORMATION: Right upper quadrant pain, known cholelithiasis, leukocytosis COMPARISON: Ultrasound from earlier today, CT 12/25/2018 TECHNIQUE: Multidetector volumetric images were obtained from the superior aspect of the liver through the pubic symphysis following administration 100 mL of Omnipaque 350 intravenous contrast. Sagittal and coronal reformatted images were obtained on the technologist's workstation. Oral contrast: No This CT examination was performed using dose optimization techniques as appropriate, variously including the following: *Automated exposure control *Adjustment of mA and/or kV according to patient size (this includes techniques or standardized protocols for targeted exams where dose is matched to indication/reason for exam; i.e. extremities or head) *Use of iterative reconstruction technique DLP: 1577 mGy-cm FINDINGS: LUNG BASES: Curvilinear atelectasis versus scarring in the basilar left lower lobe. Scattered pleural bibasilar calcifications noted. LIVER, GALLBLADDER, AND BILIARY TREE: The liver demonstrates hypoattenuation suspicious for steatosis. No biliary ductal dilatation. Gallbladder is distended, with a gallstone noted proximally. Mild pericholecystic stranding. PANCREAS: Unremarkable. SPLEEN: Unremarkable. ADRENAL GLANDS: Unremarkable. KIDNEYS AND URETERS: Bilateral nephrograms are symmetric. No hydronephrosis or obstructing calculus identified. BLADDER: Unremarkable. GASTROINTESTINAL TRACT: Small hiatal hernia is suspected. No evidence of bowel obstruction. No significant bowel wall thickening is seen. Left lower quadrant colostomy is present. Enterocolonic anastomosis in the right lower quadrant. No free fluid or free air is seen. ABDOMINAL WALL: Left lower quadrant colostomy. LYMPH NODES: Normal. VASCULAR: Unremarkable. PELVIC VISCERA: Unremarkable. OSSEOUS STRUCTURES: Syndesmophytes formation throughout the spine as well as fusion across the bilateral sacroiliac joints, in keeping with ankylosing spondylitis. Redemonstrated severe degenerative change at L3-L4. CT/CT abdomen pelvis w con IMPRESSION: Gallstone in the proximal gallbladder with mild pericholecystic stranding, concerning for mild changes of cholecystitis in the proper clinical setting. Evaluation with nuclear medicine hepatobiliary scan may be helpful to more definitively evaluate cystic duct patency. Fleischner guidelines were followed.
[2021-06-04 22:57] VITALS: BP 122/79; PULSE 83; RESP 18; TEMP 36.6; O2SAT 98; BMI 45.9
[2021-06-04 23:13] LABS: MANUAL DIFF FLAG NO
[2021-06-04 23:14] LABS: Basophils Percent Auto 0.1 % (0-2); Hematocrit 48.4 % (42.0-52.0); Hemoglobin 14.7 g/dl (14.0-18.0); Imm Gran Abs Auto 0.08 X10*3/uL (0.00-0.03); Imm Gran Pct Auto 0.6 % (0.0-0.4); Lymphocytes Absolute Auto 1.4 X10*3/uL (1.2-4.9); Lymphocytes Percent Auto 11.4 % (20-40); Mean Corpuscular HGB Conc 30.4 g/dl (31.0-36.0); Mean Corpuscular Hemoglobin 26.2 pg (27.0-33.0); Mean Corpuscular Volume 86.1 fL (80.0-98.0); Mean Platelet Volume 10.7 fL (9.4-12.4); Monocytes Absolute Auto 1.1 X10*3/uL (0.1-1.2); Monocytes Percent Auto 8.5 % (2-11); Neutrophils Absolute Auto 9.9 x10*3/uL (2.0-8.3); Neutrophils Percent Auto 79.4 % (45-73); Platelet Count 259 X10*3/uL (160-400); Red Blood Count 5.62 X10*6/uL (4.60-5.80); Red Cell Distribution Width 15.2 % (11.0-16.0); White Blood Count 12.5 X10*3/uL (4.8-10.8)
[2021-06-04 23:20] LABS: INTERNATIONAL NORM RATIO 2.1 (0.9-1.1); Prothrombin Time 24.6 SEC (9.9-13.0)
[2021-06-04 23:30] LABS: Anion Gap 11 (12-20); Blood Urea Nitrogen 17 mg/dL (9-16); Calcium 9.1 mg/dL (8.4-10.2); Carbon Dioxide 31 mmol/L (22-29); Chloride 101 mmol/L (96-108); Creatinine Clr Calc Pharmacy 91.1; Estimated Glomerular Filt Rate > 60; Glucose Random 116 mg/dL (60-115); Potassium 4.2 mmol/L (3.3-5.1); Sodium 139 mmol/L (135-145)
[2021-06-04 23:37] LABS: Troponin-I High Sensitivity < 3.5 ng/L (<3.5-35.0)
[2021-06-05] VITALS (16 sets, daily range): BP systolic 99–135; BP diastolic 56–83; PULSE 69–102; RESP 12–21; TEMP 36.2–37.5; O2SAT 94–98
[2021-06-05] MEDS: Lidocaine HCl Viscous 2 % 15 ML SOLUTION 10 ML MUCOUS MEM (00:54)
[2021-06-05] MEDS: Magnesium Hydrox/Alum Hydrox 30 ML ORAL.SUSP PO (00:54)
--- NOTE | 2021-06-05 00:55 | ED_ITS ---
HPI - Chest Pain General Chief Complaint: Chest Pain Stated Complaint: severe chest pain, difficulty breathing Time Seen by Provider: 06/05/21 00:34 Source: patient Mode of arrival: ambulatory History of Present Illness HPI narrative: 66-year-old male with history of AFib on Coumadin presents with right-sided chest discomfort, he holds his hand over the right upper quadrant right lower chest area and although triage note says that he has had the pain for a couple of hours he has had the pain since this morning. Patient describes it as sharp and similar to his previous asthma exacerbations and reports shortness of breath on exertion. He denies nausea, vomiting has an ostomy and denies any difficulty with output. Related Data Home Medications Medication Instructions Recorded Confirmed balsalazide 750 mg capsule 2,250 mg PO TID 03/02/20 05/13/21 cholecalciferol (vitamin D3) 125 125 mcg PO DAILY 09/11/20 05/13/21 mcg (5,000 unit) capsule krill oil 500 mg capsule mg PO 09/11/20 05/13/21 lactobacillus combination no.9 4 4,000 mmu cells PO DAILY 09/11/20 05/13/21 billion cell capsule (Adult 50 Plus Probiotic) multivitamin 1 tab PO DAILY 09/11/20 05/13/21 Previous Rx's Medication Instructions Recorded inhalational spacing device #1 ea 09/11/20 (BreatheRite MDI Spacer) budesonide-formoterol HFA 160 2 puff INHALATION BID #10.2 g 10/08/20 mcg-4.5 mcg/actuation aerosol inhaler (Symbicort) benralizumab 30 mg/mL subcutaneous 30 mg SUBCUT Q4W 28 Days #1 ml 10/11/20 syringe (Fasenra) albuterol sulfate 90 mcg/actuation 2 puff INHALATION Q4H PRN #17 g 01/07/21 aerosol inhaler (ProAir HFA) metoprolol tartrate 25 mg tablet 25 mg PO BID #60 tab 03/04/21 warfarin 5 mg tablet 5 mg PO DAILY #30 tab 03/04/21 furosemide 20 mg tablet 20 mg PO DAILY #30 tab 03/07/21 prednisone 50 mg tablet 50 mg PO DAILY #5 tab 05/28/21 Allergies Allergy/AdvReac Type Severity Reaction Status Date / Time No Known Allergies Allergy Verified 05/27/21 22:24 Review of Systems Review of Systems: Pertinent positives and negatives as stated in HPI and 10 point review of systems is otherwise negative. [facility] Past Medical History Source: nursing notes reviewed Medical History A-fib Acquired deformity of toenail Anal fistula Anemia Asthma Colostomy in place Crohn disease Current use of assisted anticoagulation Decreased pulses in feet Empyema lung Empyema of left pleural space Moderate persistent asthma Numbness and tingling of lower extremity FABIOLA on CPAP Persistent atrial fibrillation Skin macule or macular rash Vitamin D deficiency Surgical History History of appendectomy History of bowel resection History of creation of ostomy Family History Family History Father Emphysema lung HTN (hypertension) Pulmonary fibrosis Mother HTN (hypertension) Social History [facility] Alcohol intake: never Patient Tobacco Use Status: Never used Tobacco e-Cigarette/Vaping Use: Never Used Second Hand Smoke Exposure: No Advance Directives: No Advance Directives Information Provided: Yes service: No Current occupational status: retired Physical Exam Vital Signs: Vital Signs: Last Vital Signs Temp 97.8 F 06/04/21 22:57 Pulse 69 06/05/21 02:39 Resp 16 06/05/21 02:39 BP 105/56 L 06/05/21 02:39 Pulse Ox 94 06/05/21 02:39 BMI result Body Mass Index 45.9 VITAL SIGNS: Reviewed. GENERAL: Elevated BMI, Well developed, well nourished, in no acute distress. HEAD: Normocephalic/atraumatic EYES: PERRLA, EOMI OROPHARYNX: no oral lesions noted, posterior pharynx clear LUNGS: Normal breath sounds, no tachypnea, mild scattered expiratory wheeze but no rhonchi or rales. SpO2<95> CARDIOVASCULAR: IRR/IRR without noted murmurs, no JVD or lower extremity edema. ABDOMEN: Elevated BMI, exam significantly limited by body habitus, Soft, non-t jessenia, non-distended with bowel sounds, ostomy patent with gas SKIN: Inspection of the skin reveals no rashes NEUROLOGIC: Alert and oriented x 4. Strength and sensation to light touch were grossly intact x 4. Course Course Course Narrative: 66-year-old male with history and clinical presentation suggestive of possible pneumonia/hepatobiliary or pancreatic etiology. On review of all investigations as well as discussion with patient where he holds his hand over the right upper quadrant stating that it hurts ?right here? will proceed with right upper quadrant ultrasound to evaluate for possible cholecystitis/biliary pancreatitis. Low clinical suspicion for SBO at this time. 0200: I suspect infection. Review of all investigations consistent with cholecystitis, results discussed with the patient at bedside and patient was given antibiotics and pain medication. I also discussed this case with Dr. Mata does not feel that this patient is a good surgical candidate and agrees with antibiotics and admission to medicine. I communicated this information with the inpatient hospitalist who accepts admission. MDM - Chest Pain Lab Data Result diagrams: 06/04/21 23:03 06/04/21 23:03 Labs: Lab Results 06/04/21 06/04/21 06/04/21 Range/Units 23:03 23:03 23:03 WBC 12.5 H (4.8-10.8) X10*3/uL RBC 5.62 (4.60-5.80) X10*6/uL Hgb 14.7 (14.0-18.0) g/dl Hct 48.4 (42.0-52.0) % MCV 86.1 (80.0-98.0) fL MCH 26.2 L (27.0-33.0) pg MCHC 30.4 L (31.0-36.0) g/dl RDW 15.2 (11.0-16.0) % Plt Count 259 (160-400) X10*3/uL MPV 10.7 (9.4-12.4) fL Immature Gran % (Auto) 0.6 H (0.0-0.4) % Neut % (Auto) 79.4 H (45-73) % Lymph % (Auto) 11.4 L (20-40) % Mcmullen % (Auto) 8.5 (2-11) % Eos % (Auto) 0.0 (0-4) % Baso % (Auto) 0.1 (0-2) % Lymph # (Auto) 1.4 (1.2-4.9) X10*3/uL Mcmullen # (Auto) 1.1 (0.1-1.2) X10*3/uL Eos # (Auto) 0.0 (0.0-0.4) X10*3/uL Baso # (Auto) 0.0 (0.0-0.2) X10*3/uL Abs Immat Gran (auto) 0.08 H (0.00-0.03) X10*3/uL Absolute Neuts (auto) 9.9 H (2.0-8.3) x10*3/uL Absolute Nucleated RBC 0.000 (0.0-0.012) X10*3/uL Nucleated RBC % (auto) 0.0 (0.0-0.2) /100WBC PT (9.9-13.0) SEC INR (0.9-1.1) Sodium 139 (135-145) mmol/L Potassium 4.2 (3.3-5.1) mmol/L Chloride 101 (96-108) mmol/L Carbon Dioxide 31 H (22-29) mmol/L Anion Gap 11 L (12-20) BUN 17 H (9-16) mg/dL Creatinine 1.18 (0.5-1.4) mg/dL Estim Creat Clear Calc 91.1 Estimated GFR > 60 Random Glucose 116 H (60-115) mg/dL Calcium 9.1 (8.4-10.2) mg/dL Total Bilirubin 0.9 (0.0-1.0) mg/dL Direct Bilirubin 0.4 (0.0-0.5) mg/dL AST 25 (5-37) U/L ALT 33 (0-40) U/L Alkaline Phosphatase 127 H (39-117) U/L Troponin I High Sens < 3.5 (<3.5-35.0) ng/L B-Natriuretic Peptide 24 (<100) pg/mL Total Protein 6.7 (6.5-8.0) g/dL Albumin 3.7 (3.5-5.0) g/dL Lipase 41 (8-78) U/L 06/04/21 Range/Units 23:03 WBC (4.8-10.8) X10*3/uL RBC (4.60-5.80) X10*6/uL Hgb (14.0-18.0) g/dl Hct (42.0-52.0) % MCV (80.0-98.0) fL MCH (27.0-33.0) pg MCHC (31.0-36.0) g/dl RDW (11.0-16.0) % Plt Count (160-400) X10*3/uL MPV (9.4-12.4) fL Immature Gran % (Auto) (0.0-0.4) % Neut % (Auto) (45-73) % Lymph % (Auto) (20-40) % Mcmullen % (Auto) (2-11) % Eos % (Auto) (0-4) % Baso % (Auto) (0-2) % Lymph # (Auto) (1.2-4.9) X10*3/uL Mcmullen # (Auto) (0.1-1.2) X10*3/uL Eos # (Auto) (0.0-0.4) X10*3/uL Baso # (Auto) (0.0-0.2) X10*3/uL Abs Immat Gran (auto) (0.00-0.03) X10*3/uL Absolute Neuts (auto) (2.0-8.3) x10*3/uL Absolute Nucleated RBC (0.0-0.012) X10*3/uL Nucleated RBC % (auto) (0.0-0.2) /100WBC PT 24.6 H (9.9-13.0) SEC INR 2.1 H (0.9-1.1) Sodium (135-145) mmol/L Potassium (3.3-5.1) mmol/L Chloride (96-108) mmol/L Carbon Dioxide (22-29) mmol/L Anion Gap (12-20) BUN (9-16) mg/dL Creatinine (0.5-1.4) mg/dL Estim Creat Clear Calc Estimated GFR Random Glucose (60-115) mg/dL Calcium (8.4-10.2) mg/dL Total Bilirubin (0.0-1.0) mg/dL Direct Bilirubin (0.0-0.5) mg/dL AST (5-37) U/L ALT (0-40) U/L Alkaline Phosphatase (39-117) U/L Troponin I High Sens (<3.5-35.0) ng/L B-Natriuretic Peptide (<100) pg/mL Total Protein (6.5-8.0) g/dL Albumin (3.5-5.0) g/dL Lipase (8-78) U/L Discharge Plan Discharge Clinical Impression: Cholecystitis, Asthma, FABIOLA (obstructive sleep apnea), Atrial fibrillation, chronic Patient Disposition: Admitted As Inpatient Prescriptions: No Action budesonide-formoterol [Symbicort] 160-4.5 mcg/actuation HFA aerosol inhaler 2 puff inhalation BID Qty: 10.2 6RF Fasenra 30 mg/mL syringe 30 mg subcut Q4W 28 Days Qty: 1 12RF Rx Instructions: Every 4 weeks for the 1st 3 doses, then every 8 weeks albuterol sulfate [ProAir HFA] 90 mcg/actuation HFA aerosol inhaler 2 puff inhalation Q4H PRN (Reason: shortness of breath or wheezing) Qty: 17 2RF metoprolol tartrate 25 mg tablet 25 mg PO BID Qty: 60 2RF warfarin 5 mg tablet 5 mg PO DAILY Qty: 30 3RF Protocol: Dose Management Condition: Thursday (Week One) Dose/Route: 0 mg Instruction: 0 tablets Condition: Thursday Dose/Route: 5 mg Instruction: 1 x 5 mg tablet Condition: Thursday Dose/Route: 2.5 mg Instruction: 0.5 x 5 mg tablets Condition: Thursday Dose/Route: 2.5 mg Instruction: 0.5 x 5 mg tablets Condition: Dose/Route: 5 mg Instruction: 1 x 5 mg tablet Condition: Thursday Dose/Route: 2.5 mg Instruction: 0.5 x 5 mg tablets Condition: Thursday Dose/Route: 2.5 mg Instruction: 0.5 x 5 mg tablets Condition: Thursday (Week Two) Dose/Route: 2.5 mg Instruction: 0.5 x 5 mg tablets Condition: Thursday Dose/Route: 5 mg Instruction: 1 x 5 mg tablet Condition: Thursday Dose/Route: 2.5 mg Instruction: 0.5 x 5 mg tablets Condition: Thursday Dose/Route: 2.5 mg Instruction: 0.5 x 5 mg tablets Condition: Dose/Route: 5 mg Instruction: 1 x 5 mg tablet Condition: Thursday Dose/Route: 2.5 mg Instruction: 0.5 x 5 mg tablets Condition: Thursday Dose/Route: 2.5 mg Instruction: 0.5 x 5 mg tablets Protocol Text: Adjustment Start Date: Thursday05/13/21 INR Value: 2.3 INR Date: 05/13/21 Recheck Date: 06/12/21 Additional Instructions: INR IS IN RANGE NO GREENS TODAY OR TOMORROW MISSED DOSE ON THURSDAY, CONTINUE USUAL DOSING AND BALANCE GREENS AND REDS IN DIET furosemide 20 mg tablet 20 mg PO DAILY Qty: 30 2RF prednisone 50 mg tablet 50 mg PO DAILY Qty: 5 0RF cholecalciferol (vitamin D3) 125 mcg (5,000 unit) capsule 125 mcg PO DAILY 0RF krill oil 500 mg capsule PO 0RF Adult 50 Plus Probiotic 4 billion cell capsule 4,000 mmu cells PO DAILY 0RF Rx Instructions: administer with a meal multivitamin Tablet 1 tab PO DAILY 0RF (DME) BreatheRite MDI Spacer Spacer See Rx Instructions .ROUTE .MEDSUPPLY Qty: 1 0RF Rx Instructions: As directed balsalazide 750 mg capsule 2,250 mg PO TID 0RF
[2021-06-05 01:06] LABS: Alanine Aminotransferase 33 U/L (0-40); Albumin Level 3.7 g/dL (3.5-5.0); Alkaline Phosphatase 127 U/L (39-117); Aspartate Amino Transferase 25 U/L (5-37); Bilirubin Direct 0.4 mg/dL (0.0-0.5); Bilirubin Total 0.9 mg/dL (0.0-1.0); Lipase 41 U/L (8-78); Total Protein 6.7 g/dL (6.5-8.0)
[2021-06-05 01:12] LABS: B Type Natriuretic Peptide 24 pg/mL (<100)
[2021-06-05] MEDS: Albuterol Sulfate (0.083%) 2.5 MG/3 ML VIAL.NEB 5 MG INHALE (02:18)
[2021-06-05] MEDS: iohexoL 350 MG/ML 100 ML INFUS..BTL IV (03:04)
[2021-06-05] MEDS: Piperacillin Sodium/Tazobactam 3.375 GM in 0.9 % Sodium Chloride 50 ML IV (03:55)
[2021-06-05] MEDS: HYDROmorphone HCl 0.5 MG/0.5 ML SYRINGE 0.25 MG IVPUSH (03:55)
[2021-06-05 04:03] LABS: Lactic Acid 2.2 mmol/L (0.5-2.0)
--- NOTE | 2021-06-05 04:13 | PC.NURSE ---
Med rec completed with PT at bed side.
[2021-06-05 04:28] LABS: COVID-19 Test Negative (Negative)
[2021-06-05 05:48] LABS: Reflex Lactate? Lactic Acid Added
[2021-06-05] MEDS: cefTRIAXone sodium 1 GM in 0.9 % Sodium Chloride 50 ML IV (05:53)
--- NOTE | 2021-06-05 06:20 | PM.IMHP ---
History of Present Illness Date of Service: 06/05/21 Chief Complaint: abdominal pain 66-year-old male with extensive past medical history including persistent AFib, anemia, asthma, Crohn's disease, history of empyema, FABIOLA, presents to the hospital with complaints of epigastric and right upper quadrant abdominal pain. He describes it as chest pain but then he points to his epigastric and right upper quadrant Region. He feels stabbing pain, radiating across the abdomen, associated with nausea with no vomiting, loss of appetite. The symptoms started the night prior to presentation. Describes the pain as 10/10, constant, Slightly relieved by pain medication and no worsening factors. Patient has a history of Crohn's status post resection in the past but reports no similar previous episode. Denies any chest pain, he has some shortness of breath is chronic, denies any diarrhea constipation, no urinary symptoms and no lower extremity edema. No headache or change in vision, no weakness numbness or tingling. On arrival to the ED patient hemodynamically stable with no significant abnormal vitals Labs are significant for WBC of 12.5, hemoglobin of 14.7, left shift, INR of 2.1, BUN of 17, creatinine of 1.18, LACTIC OF 2.2, ABDOMINAL PELVIC CT SHOWS Gallstone in the proximal gallbladder with mild pericholecystic stranding concerning for mild changes of cholecystitis surgery was consulted, does not feel the patient is a surgical candidate and will be admitted with IV antibiotics Review of Systems Review of Systems: Yes all other systems are reviewed and are negative [facility] Medical History A-fib Acquired deformity of toenail Anal fistula Anemia Asthma Colostomy in place Crohn disease Current use of chcf anticoagulation Decreased pulses in feet Empyema lung Empyema of left pleural space Moderate persistent asthma Numbness and tingling of lower extremity FABIOLA on CPAP Persistent atrial fibrillation Skin macule or macular rash Vitamin D deficiency Family History Father Emphysema lung HTN (hypertension) Pulmonary fibrosis Mother HTN (hypertension) Surgical History History of appendectomy History of bowel resection History of creation of ostomy [facility] Alcohol intake: never Patient Tobacco Use Status: Never used Tobacco e-Cigarette/Vaping Use: Never Used Second Hand Smoke Exposure: No Advance Directives: No Advance Directives Information Provided: Yes service: No Current occupational status: retired Meds Allergies Allergy/AdvReac Type Severity Reaction Status Date / Time No Known Allergies Allergy Verified 05/27/21 22:24 Active Medications: Current Medications Acetaminophen (Acetaminophen 325 Mg Tablet) 650 mg PO Q6H PRN PRN Reason: Pain, Mild (Pain Scale 1-3) Docusate Sodium (Docusate Sodium 100 Mg Capsule) 100 mg PO DAILY PRN PRN Reason: Constipation Ceftriaxone Sodium 1 gm/ (Sodium Chloride) 50 mls @ 100 mls/hr IV Q24H VANNESSA Last Admin: 06/05/21 05:53 Dose: 100 mls/hr Documented by: Metronidazole (Flagyl) 500 mg in 100 mls @ 100 mls/hr IV Q8H VANNESSA Morphine Sulfate (Morphine Sulfate 4 Mg/Ml Cartridge) 4 mg IVPUSH Q4H PRN; Protocol PRN Reason: Pain, Severe (Pain Scale 7-10) Ondansetron HCl (Ondansetron Hcl 4 Mg/2 Ml Vial) 4 mg IVPUSH Q8H PRN PRN Reason: Nausea and Vomiting Home Medications Medication Instructions Recorded Confirmed Last Taken Type balsalazide 750 mg capsule 2,250 mg PO TID 03/02/20 06/05/21 06/04/21 21:00 History cholecalciferol (vitamin D3) 125 125 mcg PO DAILY 09/11/20 06/05/21 06/04/21 12:00 History mcg (5,000 unit) capsule krill oil 500 mg capsule 500 mg PO DAILY 09/11/20 06/05/21 06/04/21 12:00 History lactobacillus combination no.9 4 4,000 mmu cells PO DAILY 09/11/20 06/05/21 06/04/21 12:00 History billion cell capsule (Adult 50 Plus Probiotic) multivitamin 1 tab PO DAILY 09/11/20 06/05/21 06/04/21 12:00 History benralizumab 30 mg/mL subcutaneous 30 mg SUBCUT Q8W 06/05/21 06/05/21 Unknown History syringe (Fasenra) Physical Exam Vital Signs and Narrative: Vital Signs: Last Vital Signs Temp 97.8 F 06/04/21 22:57 Pulse 78 06/05/21 06:07 Resp 18 06/05/21 06:07 BP 99/61 06/05/21 06:07 Pulse Ox 95 06/05/21 06:07 BMI result Body Mass Index 45.9 Const: Other: patient appears in pain, uncomfortable General: cooperative and no acute distress Orientation/consciousness: patient oriented x3 Eyes: General: appearance normal, both eyes and all related structures Pupils: Equal, round and reactive pupils present Resp: Effort & Inspection: normal respiratory effort Auscultation: clear to auscultation bilaterally Cardio: Rate: regular rate Rhythm: regular rhythm GI: Other: right upper quadrant, epigastric tenderness, some rebound, and guarding Palpation (GI): Soft to palpation Auscultation: normal bowel sounds Skin: General skin exam: no rashes or lesions noted Neuro: General: patient oriented x3 Cranial nerves: Yes Equal, round and reactive pupils present Cognition (Neuro): normal cognition Extrem: General: Yes normal to inspection and Yes no pedal edema Results Labs CBC and Chem 7: 06/04/21 23:03 06/04/21 23:03 Labs: Laboratory Results - last 24 hr 06/04/21 06/04/21 06/04/21 23:03 23:03 23:03 MCV 86.1 MCH 26.2 L MCHC 30.4 L RDW 15.2 Plt Count 259 MPV 10.7 Immature Gran % (Auto) 0.6 H Neut % (Auto) 79.4 H Lymph % (Auto) 11.4 L [place] % (Auto) 8.5 Eos % (Auto) 0.0 Baso % (Auto) 0.1 Lymph # (Auto) 1.4 [place] # (Auto) 1.1 Eos # (Auto) 0.0 Baso # (Auto) 0.0 Abs Immat Gran (auto) 0.08 H Absolute Neuts (auto) 9.9 H Absolute Nucleated RBC 0.000 Nucleated RBC % (auto) 0.0 PT INR Anion Gap 11 L Estim Creat Clear Calc 91.1 Estimated GFR > 60 Random Glucose 116 H Lactic Acid Calcium 9.1 Total Bilirubin 0.9 Direct Bilirubin 0.4 AST 25 ALT 33 Alkaline Phosphatase 127 H B-Natriuretic Peptide 24 Total Protein 6.7 Albumin 3.7 Lipase 41 COVID-19 (LALITHA) COVID-19 Clin Com 06/04/21 06/05/21 06/05/21 23:03 03:43 04:09 MCV MCH MCHC RDW Plt Count MPV Immature Gran % (Auto) Neut % (Auto) Lymph % (Auto) [place] % (Auto) Eos % (Auto) Baso % (Auto) Lymph # (Auto) [place] # (Auto) Eos # (Auto) Baso # (Auto) Abs Immat Gran (auto) Absolute Neuts (auto) Absolute Nucleated RBC Nucleated RBC % (auto) PT 24.6 H INR 2.1 H Anion Gap Estim Creat Clear Calc Estimated GFR Random Glucose Lactic Acid 2.2 H* Calcium Total Bilirubin Direct Bilirubin AST ALT Alkaline Phosphatase B-Natriuretic Peptide Total Protein Albumin Lipase COVID-19 (LALITHA) Negative COVID-19 Clin Com See Note Imaging Radiologist's Impressions: Impressions Chest X-Ray 06/04/21 23:07 IMPRESSION: Minimal left basilar atelectasis without additional acute findings. Abdomen Ultrasound 06/05/21 01:45 IMPRESSION: Gallbladder sludge with possible superimposed cholelithiasis. Although there are no additional specific sonographic findings of cholecystitis, right upper quadrant tenderness was reported during the exam. If there remains clinical concern for cholecystitis, this may be further assessed with nuclear medicine hepatobiliary scan. Abdomen/Pelvis CT 06/05/21 02:55 IMPRESSION: Gallstone in the proximal gallbladder with mild pericholecystic stranding, concerning for mild changes of cholecystitis in the proper clinical setting. Evaluation with nuclear medicine hepatobiliary scan may be helpful to more definitively evaluate cystic duct patency. Fleischner guidelines were followed. Assessment and Plan (1) Cholecystitis: Status: Acute (2) Lactic acidosis: Status: Acute Plan 66-year-old male with past medical history AFib on Coumadin, FABIOLA, Crohn's disease who presents to the hospital with abdominal pain found to have cholecystitis # cholecystitis - acute - surgery consult, patient not a candidate for surgical intervention at this time - no evidence of sepsis - will treat with IV antibiotics - IV fluids - follow cultures - surgery following # lactic acidosis - likely secondary to above - will treat with IV fluids - trend # AFib - persistent - rate controlled - therapeutic INR - will continue Coumadin, as well as metoprolol # Crohn's - stable with no flare at this time - continue home medications DVT prophylaxis: Eliquis Quality Stroke Does the patient have a stroke diagnosis?: No VTE Prior VTE?: No VTE Risk Level:: Medical - moderate - high VTE Device Contraindication: N/A - Device Ordered VTE Drug Contraindication: Treatment Not Indicated
[2021-06-05] MEDS: metroNIDAZOLE/NS 500 MG/100 ML PIGGYBACK 100 MG IV ×3 (06:33→22:25)
[2021-06-05 06:43] LABS: MANUAL DIFF FLAG NO
[2021-06-05] MEDS: Morphine Sulfate 4 MG/ML CARTRIDGE IVPUSH ×4 (06:43→22:26)
[2021-06-05 06:45] LABS: Basophils Percent Auto 0.1 % (0-2); Eosinophils Percent Auto 0.1 % (0-4); Hematocrit 44.9 % (42.0-52.0); Hemoglobin 13.8 g/dl (14.0-18.0); Imm Gran Abs Auto 0.07 X10*3/uL (0.00-0.03); Imm Gran Pct Auto 0.5 % (0.0-0.4); Lymphocytes Absolute Auto 1.1 X10*3/uL (1.2-4.9); Lymphocytes Percent Auto 7.7 % (20-40); Mean Corpuscular HGB Conc 30.7 g/dl (31.0-36.0); Mean Corpuscular Hemoglobin 26.3 pg (27.0-33.0); Mean Corpuscular Volume 85.5 fL (80.0-98.0); Mean Platelet Volume 10.5 fL (9.4-12.4); Monocytes Absolute Auto 1.1 X10*3/uL (0.1-1.2); Monocytes Percent Auto 7.9 % (2-11); Neutrophils Absolute Auto 11.5 x10*3/uL (2.0-8.3); Neutrophils Percent Auto 83.7 % (45-73); Platelet Count 237 X10*3/uL (160-400); Red Blood Count 5.25 X10*6/uL (4.60-5.80); Red Cell Distribution Width 15.3 % (11.0-16.0); White Blood Count 13.7 X10*3/uL (4.8-10.8)
[2021-06-05 06:58] LABS: Lactic Acid 1.4 mmol/L (0.5-2.0)
[2021-06-05 07:10] LABS: Anion Gap 11 (12-20); Blood Urea Nitrogen 15 mg/dL (9-16); Calcium 8.5 mg/dL (8.4-10.2); Carbon Dioxide 26 mmol/L (22-29); Chloride 104 mmol/L (96-108); Creatinine Clr Calc Pharmacy 113.1; Estimated Glomerular Filt Rate > 60; Glucose Random 122 mg/dL (60-115); Potassium 4.1 mmol/L (3.3-5.1); Sodium 137 mmol/L (135-145)
--- NOTE | 2021-06-05 07:32 | PHA.MEDREC ---
Pharmacy Consult ? Medication Reconciliation Pharmacy has reviewed the medication reconciliation completed by Clifford. Patient reports taking warfarin 5 mg MoTh and 2.5 mg the rest. Provider notified of the update. Tiffanie Martinez, WilfredoD
[2021-06-05] MEDS: Lactated Ringers 1,000 ML 100 ML IVCONT ×2 (07:46→15:33)
--- NOTE | 2021-06-05 08:31 | PM.CNGS ---
History of Present Illness Consult details Consult date: 06/05/21 Narrative: 66-year-old male referred to me for gallstones with possible cholecystitis. He was admitted early this morning via the emergency room because what he actually described as discomfort. He says that he felt that he had a bag of potatoes on top of his chest since about midnight last night. He says that this is not actually pain but more of discomfort all over his anterior chest both the left and the right side. He says that he does not have any right upper quadrant pain but describes some tightness of his abdomen as well similar to his chest. He went to the ER as well last week for similar symptoms with some shortness of breath. He was given steroids because of his history of asthma. He had imaging studies showing gallbladder stones with mild pericholecystic changes. He currently denies any pain on the abdomen. He has a long history of atrial fibrillation, is on anticoagulation. He has had multiple surgeries for his abdomen for Crohn's disease. He now has colostomy denies any problems with colostomy function. Review of Systems Constitutional: Constitutional: Denies chills and Denies fever(s) Cardiovascular: Cardiovascular: Denies chest pain, Denies dyspnea and Reports dyspnea on exertion Respiratory: Respiratory: Denies cough, Denies dyspnea and Reports dyspnea on exertion Gastrointestinal: Gastrointestinal: Denies hematochezia and Denies change in bowel habits Genitourinary: Genitourinary: Denies hematuria and Denies difficulty urinating Musculoskeletal: Musculoskeletal: Denies back pain and Denies limited range of motion Neurologic: Denies focal weakness and Denies convulsions Psychiatric: Psychiatric: Denies depression and Denies mood swings PMF Past Medical History Medical History A-fib Acquired deformity of toenail Anal fistula Anemia Asthma Colostomy in place Crohn disease Current use of jail anticoagulation Decreased pulses in feet Empyema lung Empyema of left pleural space Moderate persistent asthma Numbness and tingling of lower extremity FABIOLA on CPAP Persistent atrial fibrillation Skin macule or macular rash Vitamin D deficiency Family History Family History Father Emphysema lung HTN (hypertension) Pulmonary fibrosis Mother HTN (hypertension) Surgical History Surgical History History of appendectomy History of bowel resection History of creation of ostomy Social History Social History Household Members: Spouse Housing: Apartment Do you presently have visiting nurse or other home services: No Alcohol intake: never Patient Tobacco Use Status: Never used Tobacco e-Cigarette/Vaping Use: Never Used Second Hand Smoke Exposure: No Advance Directives Date on File: 06/05/21 service: No Current occupational status: retired Meds Allergies Allergy/AdvReac Type Severity Reaction Status Date / Time No Known Allergies Allergy Verified 06/10/21 08:59 Active Medications: Current Medications Acetaminophen (Acetaminophen 325 Mg Tablet) 650 mg PO Q6H PRN PRN Reason: Pain, Mild (Pain Scale 1-3) Albuterol Sulfate (Albuterol Sulfate 90 Mcg 8 Gm Inhaler) 2 puff INHALE Q4H PRN PRN Reason: shortness of breath or wheezing Balsalazide (Balsalazide Disodium 750 Mg Capsule) 2,250 mg PO TID [facility] Docusate Sodium (Docusate Sodium 100 Mg Capsule) 100 mg PO DAILY PRN PRN Reason: Constipation Furosemide (Furosemide 20 Mg Tablet) 20 mg PO DAILY [facility]; Protocol Ceftriaxone Sodium 1 gm/ (Sodium Chloride) 50 mls @ 100 mls/hr IV Q24H [facility] Last Infusion: 06/05/21 06:33 Dose: Infused Documented by: Metronidazole (Flagyl) 500 mg in 100 mls @ 100 mls/hr IV Q8H [facility] Last Infusion: 06/05/21 07:46 Dose: Infused Documented by: Lactated Ringer's (Lr) 1,000 mls @ 100 mls/hr IVCONT .Q10H [facility] Last Admin: 06/05/21 07:46 Dose: 100 mls/hr Documented by: Metoprolol Tartrate (Metoprolol Tartrate 25 Mg Tablet) 25 mg PO BID@1200,2100 [facility]; Protocol Morphine Sulfate (Morphine Sulfate 4 Mg/Ml Cartridge) 4 mg IVPUSH Q4H PRN; Protocol PRN Reason: Pain, Severe (Pain Scale 7-10) Last Admin: 06/05/21 06:43 Dose: 4 mg Documented by: Multivitamins/Vitamin C (Multivitamin Tablet) 1 tab PO DAILY [facility] Ondansetron HCl (Ondansetron Hcl 4 Mg/2 Ml Vial) 4 mg IVPUSH Q8H PRN PRN Reason: Nausea and Vomiting Vitamin D (Cholecalciferol (Vitamin D3) 25 Mcg Tablet) 25 mcg PO DAILY [facility] Warfarin Sodium (Warfarin Sodium 2.5 Mg Tablet) 2.5 mg PO SuTuWeFrSa@1800 [facility] Warfarin Sodium (Warfarin Sodium 5 Mg Tablet) 5 mg PO MoTh@1800 [facility] Home Medications Medication Instructions Recorded Confirmed Last Taken Type balsalazide 750 mg capsule 2,250 mg PO TID 03/02/20 06/10/21 06/04/21 21:00 History krill oil 500 mg capsule 500 mg PO DAILY 09/11/20 06/10/21 06/04/21 12:00 History lactobacillus combination no.9 4 4,000 mmu cells PO DAILY 09/11/20 06/10/21 06/04/21 12:00 History billion cell capsule (Adult 50 Plus Probiotic) multivitamin 1 tab PO DAILY 09/11/20 06/10/21 06/04/21 12:00 History benralizumab 30 mg/mL subcutaneous 30 mg SUBCUT Q8W 06/05/21 06/10/21 Unknown History syringe (Fasenra) cholecalciferol (vitamin D3) 25 25 mcg PO DAILY 06/05/21 06/10/21 06/04/21 History mcg (1,000 unit) tablet metoprolol tartrate 25 mg tablet 25 tab PO BID@1200,2100 06/05/21 06/10/21 06/04/21 History warfarin 5 mg tablet 2.5 mg PO SUTUWEFRSA 06/05/21 06/10/21 06/04/21 History warfarin 5 mg tablet 5 mg PO MOTH 06/05/21 06/10/21 06/03/21 History Physical Exam Vital Signs: Vital Signs: Last Vital Signs Temp 98.8 F 06/05/21 07:27 Pulse 88 06/05/21 07:27 Resp 14 06/05/21 07:27 BP 100/58 L 06/05/21 07:27 Pulse Ox 95 06/05/21 06:07 BMI result Body Mass Index 45.9 Const: Other: Morbidly obese General: comfortable and no acute distress Orientation/consciousness: patient oriented x3 Neck: Neck: Yes no lymphadenopathy Resp: Auscultation: clear to auscultation bilaterally Cardio: Rhythm: regular rhythm GI: Other: Soft, no significant tenderness on the right upper quadrant at this time, no Andrew sign, no guarding rebound Palpation (GI): Soft to palpation, nontender and no guarding Neuro: General: patient oriented x3 Results Labs Result diagrams: 06/09/21 07:22 06/07/21 05:32 Labs: Abnormal lab results 06/04/21 06/04/21 06/04/21 Range/Units 23:03 23:03 23:03 WBC 12.5 H (4.8-10.8) X10*3/uL Hgb (14.0-18.0) g/dl MCH 26.2 L (27.0-33.0) pg MCHC 30.4 L (31.0-36.0) g/dl Immature Gran % (Auto) 0.6 H (0.0-0.4) % Neut % (Auto) 79.4 H (45-73) % Lymph % (Auto) 11.4 L (20-40) % Lymph # (Auto) (1.2-4.9) X10*3/uL Abs Immat Gran (auto) 0.08 H (0.00-0.03) X10*3/uL Absolute Neuts (auto) 9.9 H (2.0-8.3) x10*3/uL PT 24.6 H (9.9-13.0) SEC INR 2.1 H (0.9-1.1) Carbon Dioxide 31 H (22-29) mmol/L Anion Gap 11 L (12-20) BUN 17 H (9-16) mg/dL Random Glucose 116 H (60-115) mg/dL Lactic Acid (0.5-2.0) mmol/L Alkaline Phosphatase 127 H (39-117) U/L 06/05/21 06/05/21 06/05/21 Range/Units 03:43 06:39 06:39 WBC 13.7 H (4.8-10.8) X10*3/uL Hgb 13.8 L (14.0-18.0) g/dl MCH 26.3 L (27.0-33.0) pg MCHC 30.7 L (31.0-36.0) g/dl Immature Gran % (Auto) 0.5 H (0.0-0.4) % Neut % (Auto) 83.7 H (45-73) % Lymph % (Auto) 7.7 L (20-40) % Lymph # (Auto) 1.1 L (1.2-4.9) X10*3/uL Abs Immat Gran (auto) 0.07 H (0.00-0.03) X10*3/uL Absolute Neuts (auto) 11.5 H (2.0-8.3) x10*3/uL PT (9.9-13.0) SEC INR (0.9-1.1) Carbon Dioxide (22-29) mmol/L Anion Gap 11 L (12-20) BUN (9-16) mg/dL Random Glucose 122 H (60-115) mg/dL Lactic Acid 2.2 H* (0.5-2.0) mmol/L Alkaline Phosphatase (39-117) U/L Short CBC 06/04/21 06/05/21 Range/Units 23:03 06:39 WBC 12.5 H 13.7 H (4.8-10.8) X10*3/uL Hgb 14.7 13.8 L (14.0-18.0) g/dl Hct 48.4 44.9 (42.0-52.0) % Plt Count 259 237 (160-400) X10*3/uL BMP 06/04/21 06/05/21 23:03 06:39 Sodium 139 137 Potassium 4.2 4.1 Chloride 101 104 Carbon Dioxide 31 H 26 BUN 17 H 15 Creatinine 1.18 0.95 Calcium 9.1 8.5 D Liver Function 06/04/21 Range/Units 23:03 Total Bilirubin 0.9 (0.0-1.0) mg/dL Direct Bilirubin 0.4 (0.0-0.5) mg/dL AST 25 (5-37) U/L ALT 33 (0-40) U/L Alkaline Phosphatase 127 H (39-117) U/L Albumin 3.7 (3.5-5.0) g/dL All other labs normal. Imaging Abdomen CT scan report/results: report reviewed and image reviewed CT scan - pelvis: report reviewed and image reviewed Assessment and Plan (1) Cholecystitis: Status: Acute He actually came in because of complaints of chest discomfort, pressure type, both the left and right side. He had imaging studies showing gallstones with mild pericholecystic stranding. Currently, he seemed to have significant tenderness in right upper quadrant nor Andrew sign. He has a very benign exam. I would continue to treat him with IV antibiotics at this time. He may have clear liquids. I am uncertain however if his discomfort is related to his gallstones. It may be best to hold off on his anticoagulation for now. I will follow along while he is in the hospital. I have explained the plan to the patient is comfortable with this although he does state that he wants to go home today. Procedures Date of Service Date of Service: 06/06/21
[2021-06-05] MEDS: Furosemide 20 MG TABLET PO (09:00)
[2021-06-05] MEDS: Multivitamin TABLET 1 TAB PO (09:00)
[2021-06-05] MEDS: Cholecalciferol (Vitamin D3) 25 MCG TABLET PO (09:00)
[2021-06-05] MEDS: Balsalazide Disodium 750 MG CAPSULE 2250 MG PO ×3 (09:01→20:49)
--- NOTE | 2021-06-05 09:30 | MHC.CM.PN ---
PT REPORTS HE LIVES AT HOME WITH HIS AND IS INDEPENDENT WITH CARE PT DENIES USE OF DME OR HOME SERVICES PT REPORTS THE LAST T8IME HE WAS IN THE ED, THE MD SUGGESTED HE GET A NEBULIZER OPT ENCOURAGED TO DISCUSS THIS WITH PT REPORTS HIS PCP IS JIGAR TANNER AND HE HAS A HCP ON FILE PT REPORTS HE IS VACCINATED AGAINST COVID-19 WITH PFIZER X 3 CURRENT DC PLAN IS HOME WITH NO SERVICES TO TRANSPORT
[2021-06-05 10:17] LABS: Prothrombin Time 23.3 SEC (9.9-13.0)
[2021-06-05] MEDS: Albuterol Sulfate 90 MCG 8 GM INHALER 2 PUFF INHALE (12:09)
[2021-06-05] MEDS: Metoprolol Tartrate 25 MG TABLET PO ×2 (12:22→20:50)
--- NOTE | 2021-06-05 13:10 | PC.NURSE ---
Pt A&Ox4, lungs with expiratory wheezes, respiratory called for inhaler. Pt states difficulty taking deep breaths at this time, states feels 5/10 pain which is heavy on his chest. Pt denies any actual CP, states this is how it feels when his asthma is acting up. Explained location of gallbladder and how this could be causing the pain that he feels is his lungs. Pt VS as charted, clear diet given at this time. Medication as per [facility] orders for the pain. Call larson within reach. Will continue to monitor.
--- NOTE | 2021-06-05 13:27 | PM.EVENT ---
Event Note Date of Service: 06/05/21 Event Note: here with abd pain ? cholecystitis, surgery not impress, continue Abx for now, advance diet.
[2021-06-05] MEDS: Warfarin Sodium 2.5 MG TABLET PO (17:36)
[2021-06-05] MEDS: Acetaminophen 325 MG TABLET 650 MG PO (19:28)
--- NOTE | 2021-06-05 22:17 | PC.NURSE ---
P patient reports using Cpap at home ,unable to bring his own I Dr. Arguello notified E will monitor ,no respiratory distress noted
[2021-06-06] VITALS (9 sets, daily range): BP systolic 98–135; BP diastolic 54–76; PULSE 91–122; RESP 15–20; TEMP 36.4–38; O2SAT 94–97
[2021-06-06] MEDS: Lactated Ringers 1,000 ML 100 ML IVCONT (01:35)
[2021-06-06] MEDS: Acetaminophen 325 MG TABLET 650 MG PO ×2 (02:59→09:11)
[2021-06-06] MEDS: Morphine Sulfate 4 MG/ML CARTRIDGE IVPUSH (05:15)
[2021-06-06] MEDS: cefTRIAXone sodium 1 GM in 0.9 % Sodium Chloride 50 ML IV (05:16)
[2021-06-06] MEDS: metroNIDAZOLE/NS 500 MG/100 ML PIGGYBACK 100 MG IV ×3 (05:50→23:00)
[2021-06-06 05:52] LABS: INTERNATIONAL NORM RATIO 2.4 (0.9-1.1); Prothrombin Time 27.4 SEC (9.9-13.0)
--- NOTE | 2021-06-06 08:49 | P.PNGS_ITS ---
Subjective Subjective Date of Service: 06/10/21 Interval history: Says he does not have any right upper quadrant pain or tenderness Tired this morning Denies any abdominal pain Hungry and wants to eat real food He says that he still has this dull diffuse discomfort on his anterior chest Had low-grade temp Physical Exam Vital Signs: Vital Signs: Last Vital Signs Temp 100.4 F 06/06/21 07:49 Pulse 100 06/06/21 07:49 Resp 15 06/06/21 07:49 BP 105/76 06/06/21 07:49 Pulse Ox 96 06/06/21 07:49 BMI result Body Mass Index 45.9 Const: General: comfortable and no acute distress Resp: Effort & Inspection: normal respiratory effort Cardio: Rhythm: regular rhythm GI: Other: No Andrew's sign Palpation (GI): Soft to palpation, not firm, nontender and no guarding Objective Data Active Medications Acetaminophen (Acetaminophen 325 Mg Tablet) 650 mg PO Q6H PRN PRN Reason: Pain, Mild (Pain Scale 1-3) Last Admin: 06/06/21 02:59 Dose: 650 mg Documented by: SONIA Albuterol Sulfate (Albuterol Sulfate 90 Mcg 8 Gm Inhaler) 2 puff INHALE Q4H PRN PRN Reason: shortness of breath or wheezing Last Admin: 06/05/21 12:09 Dose: 2 puff Documented by: EDITH Balsalazide (Balsalazide Disodium 750 Mg Capsule) 2,250 mg PO TID [facility] Last Admin: 06/05/21 20:49 Dose: 2,250 mg Documented by: BERRY Docusate Sodium (Docusate Sodium 100 Mg Capsule) 100 mg PO DAILY PRN PRN Reason: Constipation Furosemide (Furosemide 20 Mg Tablet) 20 mg PO DAILY [facility]; Protocol Last Admin: 06/05/21 09:00 Dose: 20 mg Documented by: CIEBRITCHIE Ceftriaxone Sodium 1 gm/ (Sodium Chloride) 50 mls @ 100 mls/hr IV Q24H [facility] Last Infusion: 06/06/21 05:49 Dose: 0 mls/hr Documented by: SONIA Metronidazole (Flagyl) 500 mg in 100 mls @ 100 mls/hr IV Q8H [facility] Last Infusion: 06/06/21 07:13 Dose: 0 mls/hr Documented by: SONIA Lactated Ringer's (Lr) 1,000 mls @ 100 mls/hr IVCONT .Q10H [facility] Last Admin: 06/06/21 01:35 Dose: 100 mls/hr Documented by: SONIA Metoprolol Tartrate (Metoprolol Tartrate 25 Mg Tablet) 25 mg PO BID@1200,2100 [facility]; Protocol Last Admin: 06/05/21 20:50 Dose: 25 mg Documented by: BERRY Morphine Sulfate (Morphine Sulfate 4 Mg/Ml Cartridge) 4 mg IVPUSH Q4H PRN; Protocol PRN Reason: Pain, Severe (Pain Scale 7-10) Last Admin: 06/06/21 05:15 Dose: 4 mg Documented by: SONIA Multivitamins/Vitamin C (Multivitamin Tablet) 1 tab PO DAILY [facility] Last Admin: 06/05/21 09:00 Dose: 1 tab Documented by: SHARLENE Ondansetron HCl (Ondansetron Hcl 4 Mg/2 Ml Vial) 4 mg IVPUSH Q8H PRN PRN Reason: Nausea and Vomiting Vitamin D (Cholecalciferol (Vitamin D3) 25 Mcg Tablet) 25 mcg PO DAILY [facility] Last Admin: 06/05/21 09:00 Dose: 25 mcg Documented by: SHARLENE Labs CBC & Chem 7: 06/09/21 07:22 06/07/21 05:32 Labs: Laboratory Results - last 24 hr 06/05/21 06/06/21 10:01 05:21 PT 23.3 H 27.4 H INR 2.0 H 2.4 H Microbiology Microbiology Results: Microbiology 06/05/21 03:43 Blood Culture - Preliminary Blood - Venous No growth after 24 hours. 06/05/21 03:43 Blood Culture - Preliminary Blood - Venous No growth after 24 hours. Procedures Date of Service Date of Service: 06/06/21 Progress Note: A&P Assessment and plan (1) Cholecystitis: Status: Acute Assessment and Plan: Some pericholecystic stranding, no fluid on imaging He does not have any right upper quadrant pain and tenderness No Andrew sign Did have low-grade temperature and leukocytosis Would continue with IV antibiotics Hold Coumadin as he may be a candidate for IR cholecystostomy tube drainage He has multiple medical problems Will continue to follow Fall Risk Details Current Medications: Current Medications Acetaminophen (Acetaminophen 325 Mg Tablet) 650 mg PO Q6H PRN PRN Reason: Pain, Mild (Pain Scale 1-3) Last Admin: 06/06/21 02:59 Dose: 650 mg Documented by: Albuterol Sulfate (Albuterol Sulfate 90 Mcg 8 Gm Inhaler) 2 puff INHALE Q4H PRN PRN Reason: shortness of breath or wheezing Last Admin: 06/05/21 12:09 Dose: 2 puff Documented by: Balsalazide (Balsalazide Disodium 750 Mg Capsule) 2,250 mg PO TID [facility] Last Admin: 06/05/21 20:49 Dose: 2,250 mg Documented by: Docusate Sodium (Docusate Sodium 100 Mg Capsule) 100 mg PO DAILY PRN PRN Reason: Constipation Furosemide (Furosemide 20 Mg Tablet) 20 mg PO DAILY [facility]; Protocol Last Admin: 06/05/21 09:00 Dose: 20 mg Documented by: Ceftriaxone Sodium 1 gm/ (Sodium Chloride) 50 mls @ 100 mls/hr IV Q24H [facility] Last Infusion: 06/06/21 05:49 Dose: Infused Documented by: Metronidazole (Flagyl) 500 mg in 100 mls @ 100 mls/hr IV Q8H [facility] Last Infusion: 06/06/21 07:13 Dose: Infused Documented by: Lactated Ringer's (Lr) 1,000 mls @ 100 mls/hr IVCONT .Q10H [facility] Last Admin: 06/06/21 01:35 Dose: 100 mls/hr Documented by: Metoprolol Tartrate (Metoprolol Tartrate 25 Mg Tablet) 25 mg PO BID@1200,2100 [facility]; Protocol Last Admin: 06/05/21 20:50 Dose: 25 mg Documented by: Morphine Sulfate (Morphine Sulfate 4 Mg/Ml Cartridge) 4 mg IVPUSH Q4H PRN; Protocol PRN Reason: Pain, Severe (Pain Scale 7-10) Last Admin: 06/06/21 05:15 Dose: 4 mg Documented by: Multivitamins/Vitamin C (Multivitamin Tablet) 1 tab PO DAILY [facility] Last Admin: 06/05/21 09:00 Dose: 1 tab Documented by: Ondansetron HCl (Ondansetron Hcl 4 Mg/2 Ml Vial) 4 mg IVPUSH Q8H PRN PRN Reason: Nausea and Vomiting Vitamin D (Cholecalciferol (Vitamin D3) 25 Mcg Tablet) 25 mcg PO DAILY [facility] Last Admin: 06/05/21 09:00 Dose: 25 mcg Documented by: Time Spent With Patient Time: Total time spent is greater than 50% in coordination of care (as documented) at patient's floor/unit and/or counseling patient: Time with patient: 15 - 24 minutes Quality Stroke Does the patient have a stroke diagnosis?: No VTE Prior VTE?: No VTE Risk Level:: Medical - moderate - high VTE Device Contraindication: N/A - Device Ordered VTE Drug Contraindication: Treatment Not Indicated
[2021-06-06] MEDS: Multivitamin TABLET 1 TAB PO (09:06)
[2021-06-06] MEDS: Cholecalciferol (Vitamin D3) 25 MCG TABLET PO (09:06)
[2021-06-06] MEDS: Balsalazide Disodium 750 MG CAPSULE 2250 MG PO ×3 (09:06→21:00)
[2021-06-06] MEDS: Furosemide 20 MG TABLET PO (09:06)
--- NOTE | 2021-06-06 09:21 | P.CDIC_ITS ---
CDI Concurrent Query Documentation Clarification: PHYSICIAN'S DOCUMENTATION REQUEST Date of Query: 06/06/21920 Patient Name: oGrge Dave Admit Date: 06/05/21 Dear Doctor, A review of the medical record indicates additional documentation may be needed. Please review below and update the documentation accordingly. Clinical Indicators: Risk Factors/Clinical Indicators/Treatments Body mass index: 45.9 5' 10 If possible, please provide an associated diagnosis related to the abnormal BMI, such as: For a BMI >= 40: * Overweight * Obesity * Due to excess calories * Drug induced * Due to other cause * Severe or Morbid Obesity * With alveolar hypoventilation * Without alveolar hypoventilation Or: * BMI is not significant * Other (please specify) * Unable to determine Use of terms such as suspected, likely, concern for, or probable (associated with a specific diagnosis that is being evaluated, monitored, or treated as if it exists) are acceptable and can be coded in the inpatient setting, when documented at the time of discharge. Thank you, Yesy Otoole [facility], CDIS Extension: [phone] Please use your independent medical judgment in providing your response. THIS QUERY IS PART OF THE PERMANENT MEDICAL RECORD Provider Response: Morbid Obesity
--- NOTE | 2021-06-06 09:21 | MHC.CDI.CONC ---
CDI Concurrent Query Documentation Clarification: PHYSICIAN'S DOCUMENTATION REQUEST Date of Query: 06/06/21920 Patient Name: Gorge Dave Admit Date: 06/05/21 Dear Doctor, A review of the medical record indicates additional documentation may be needed. Please review below and update the documentation accordingly. Clinical Indicators: Risk Factors/Clinical Indicators/Treatments Body mass index: 45.9 5' 10 If possible, please provide an associated diagnosis related to the abnormal BMI, such as: For a BMI >= 40: Overweight Obesity Due to excess calories Drug induced Due to other cause Severe or Morbid Obesity With alveolar hypoventilation Without alveolar hypoventilation Or: BMI is not significant Other (please specify) Unable to determine Use of terms such as suspected, likely, concern for, or probable (associated with a specific diagnosis that is being evaluated, monitored, or treated as if it exists) are acceptable and can be coded in the inpatient setting, when documented at the time of discharge. Thank you, Yesy Otoole [facility], CDIS Extension: [phone] Please use your independent medical judgment in providing your response. THIS QUERY IS PART OF THE PERMANENT MEDICAL RECORD Provider Response: Morbid Obesity
[2021-06-06 09:28] LABS: Hematocrit 47.6 % (42.0-52.0); Hemoglobin 14.2 g/dl (14.0-18.0); Mean Corpuscular HGB Conc 29.8 g/dl (31.0-36.0); Mean Corpuscular Hemoglobin 26.2 pg (27.0-33.0); Mean Platelet Volume 10.9 fL (9.4-12.4); Platelet Count 233 X10*3/uL (160-400); Red Blood Count 5.41 X10*6/uL (4.60-5.80); Red Cell Distribution Width 15.7 % (11.0-16.0); White Blood Count 21.1 X10*3/uL (4.8-10.8)
[2021-06-06] MEDS: Albuterol Sulfate (0.042%) 1.25 MG/3 ML VIAL.NEB INHALE (09:43)
[2021-06-06 09:53] LABS: Anion Gap 10 (12-20); Blood Urea Nitrogen 13 mg/dL (9-16); Calcium 8.5 mg/dL (8.4-10.2); Carbon Dioxide 31 mmol/L (22-29); Chloride 101 mmol/L (96-108); Creatinine Clr Calc Pharmacy 102.3; Estimated Glomerular Filt Rate > 60; Glucose Random 107 mg/dL (60-115); Potassium 4.6 mmol/L (3.3-5.1); Sodium 137 mmol/L (135-145)
[2021-06-06] MEDS: Metoprolol Tartrate 25 MG TABLET PO ×2 (13:25→21:00)
--- NOTE | 2021-06-06 15:01 | PM.EVENT ---
Event Note Date of Service: 06/06/21 Event Note: Patient seen on afternoon Seen ambulating Does not have any tenderness on palpation on the right upper quadrant He had increasing white count this morning Uncertain as to whether etiology is the gallbladder Minimal delia cholecystic stranding seen on imaging, no pericholecystic fluid or significant wall thickening Would investigate for other sources of infection He is ambulating and looks well otherwise except for being ?tired with some chest discomfort If no other source identified, consider cholecystostomy tube by IR but would need to hold anticoagulation Patient understands plan well
--- NOTE | 2021-06-06 15:11 | HO.PM.IMPN ---
Subjective Subjective Date of Service: 06/06/21 Interval History: seen and examined this morning denies abdominal pain, nausea or vomiting does have some SOB, feels like he is wheezing; repositioned and improved somewhat Review of Systems Review of Systems: Yes all other systems are reviewed and are negative Constitutional Constitutional: Denies chills Cardiovascular Cardiovascular: Denies chest pain and Reports dyspnea Respiratory Respiratory: Reports dyspnea Gastrointestinal Gastrointestinal: Denies abdominal pain, Denies nausea and Denies vomiting Physical Exam Vital Signs: Vital Signs: Last Vital Signs Temp 98.2 F 06/06/21 12:00 Pulse 100 06/06/21 12:00 Resp 15 06/06/21 12:00 BP 98/54 L 06/06/21 12:00 Pulse Ox 95 06/06/21 12:00 BMI result Body Mass Index 45.9 Const: General: cooperative, healthy appearing, alert and awake Nutritional Appearance: obese Eyes: Pupils: Equal, round and reactive pupils present Resp: Other: diminished breath sounds b/l; no wheezing; mild tachypnea Effort & Inspection: normal respiratory effort Auscultation: no wheezes GI: Other: ostomy bag LLQ with small amt of output Inspection: No distended Palpation (GI): Soft to palpation and nontender Neuro: Cranial nerves: Yes Equal, round and reactive pupils present Extrem: Other: moving all 4 extremities spontaneously Objective Data Active Medications Acetaminophen (Acetaminophen 325 Mg Tablet) 650 mg PO Q6H PRN PRN Reason: Pain, Mild (Pain Scale 1-3) Last Admin: 06/06/21 09:11 Dose: 650 mg Documented by: MATTHIAS Albuterol Sulfate (Albuterol Sulfate 90 Mcg 8 Gm Inhaler) 2 puff INHALE Q4H PRN PRN Reason: shortness of breath or wheezing Last Admin: 06/05/21 12:09 Dose: 2 puff Documented by: EDITH Albuterol Sulfate (Albuterol Sulfate (0.042%) 1.25 Mg/3 Ml Vial.Neb) 1.25 mg INHALE RQ4H PRN PRN Reason: Shortness of Breath Balsalazide (Balsalazide Disodium 750 Mg Capsule) 2,250 mg PO TID [facility] [place] Last Admin: 06/06/21 14:40 Dose: 2,250 mg Documented by: MATTHIAS Docusate Sodium (Docusate Sodium 100 Mg Capsule) 100 mg PO DAILY PRN PRN Reason: Constipation Furosemide (Furosemide 20 Mg Tablet) 20 mg PO DAILY [facility] [place]; Protocol Last Admin: 06/06/21 09:06 Dose: 20 mg Documented by: MATTHIAS Ceftriaxone Sodium 1 gm/ (Sodium Chloride) 50 mls @ 100 mls/hr IV Q24H [facility] [place] Last Infusion: 06/06/21 05:49 Dose: 0 mls/hr Documented by: SONIA Metronidazole (Flagyl) 500 mg in 100 mls @ 100 mls/hr IV Q8H [facility] [place] Last Admin: 06/06/21 14:41 Dose: 100 mls/hr Documented by: MATTHIAS Metoprolol Tartrate (Metoprolol Tartrate 25 Mg Tablet) 25 mg PO BID@1200,2100 [facility] [place]; Protocol Last Admin: 06/06/21 13:25 Dose: 25 mg Documented by: MATTHIAS Morphine Sulfate (Morphine Sulfate 4 Mg/Ml Cartridge) 4 mg IVPUSH Q4H PRN; Protocol PRN Reason: Pain, Severe (Pain Scale 7-10) Last Admin: 06/06/21 05:15 Dose: 4 mg Documented by: SONIA Multivitamins/Vitamin C (Multivitamin Tablet) 1 tab PO DAILY [facility] [place] Last Admin: 06/06/21 09:06 Dose: 1 tab Documented by: MATTHIAS Ondansetron HCl (Ondansetron Hcl 4 Mg/2 Ml Vial) 4 mg IVPUSH Q8H PRN PRN Reason: Nausea and Vomiting Vitamin D (Cholecalciferol (Vitamin D3) 25 Mcg Tablet) 25 mcg PO DAILY [facility] [place] Last Admin: 06/06/21 09:06 Dose: 25 mcg Documented by: MATTHIAS Labs CBC & Chem 7: 06/06/21 09:08 06/06/21 09:08 Labs: Laboratory Results - last 24 hr 06/06/21 06/06/21 06/06/21 05:21 09:08 09:08 MCV 88.0 MCH 26.2 L MCHC 29.8 L RDW 15.7 Plt Count 233 MPV 10.9 Absolute Nucleated RBC 0.000 Nucleated RBC % (auto) 0.0 PT 27.4 H INR 2.4 H Anion Gap 10 L Estim Creat Clear Calc 102.3 Estimated GFR > 60 Random Glucose 107 Calcium 8.5 Microbiology Microbiology Results: Microbiology 06/05/21 03:43 Blood Culture - Preliminary Blood - Venous No growth after 24 hours. 06/05/21 03:43 Blood Culture - Preliminary Blood - Venous No growth after 24 hours. Assessment and Plan (1) Abdominal pain: Status: Acute Plan 66-year-old male with past medical history AFib on Coumadin, FABIOLA, Crohn's disease who presents to the hospital with abdominal pain found to have cholecystitis sepsis secondary to probable cholecystitis. wbc trending up meets criteria with tachycardia and leukocytosis; will recheck lactic acid and blood cultures sepsis focused exam comleted no significant abdominal pain at this time, therefor will rule out other causes of infection CXR showing bronchial wall thickening, will obtain CT for further characterization; UA pending continue current abx BCx negative to date Abdominal pain initially presented with right sided discomfort CT abdomen showing gallstone and possible cholecystitis - continue IV ceftriaxone and flagyl -?surgery following, consider cholecystostomy tube; not a good surgical candidate - will hold INR Chronic AFib rate controlled INR therapeutic - will hold coumadin for possible CCY tube placement -continue metoprolol Crohn's -? stable with no flare at this time -? continue home medications asthma no acute exacerbation prn breathing treatments DVT prophylaxis:? coumadin d/c; mechanical devices Medical necessity: pt requires ongoing inpatient care due to sepsis, probable cholecystitis requiring IV antibiotics and possible cholecystostomy tube and further workup for sepsis Attending: Dr. Dyer Quality Stroke Does the patient have a stroke diagnosis?: No VTE Prior VTE?: No VTE Risk Level:: Medical - moderate - high VTE Device Contraindication: N/A - Device Ordered VTE Drug Contraindication: Treatment Not Indicated
[2021-06-06 16:06] LABS: Appearance Urine CLEAR; Color Urine YELLOW; Glucose Urine UA NEG (NEG); Leukocyte Esterase Urine NEG (NEG); Nitrite Urine POS (NEG); PH 5.5 (5.0-8.0); Specific Gravity - Urine 1.025 (1.005-1.025); UACC Culture Trigger YES; Urine Blood NEG (NEG); Urine Ketones 5 MG/DL (NEG); Urine Protein 1+ MG/DL (NEG-TRACE)
[2021-06-06 16:23] LABS: Bacteria Urine 1+ /LPF; Squamous Epithelial Cell Urine TRACE /LPF; UACC CULT YES
[2021-06-06 16:24] LABS: Mucus Urine TRACE /LPF
[2021-06-06 17:09] LABS: Lactic Acid 1.8 mmol/L (0.5-2.0)
[2021-06-07 03:53] VITALS: BP 97/59; PULSE 101; RESP 16; TEMP 37.1; O2SAT 95
[2021-06-07] MEDS: cefTRIAXone sodium 1 GM in 0.9 % Sodium Chloride 50 ML IV (05:57)
[2021-06-07 06:17] LABS: Hematocrit 45.6 % (42.0-52.0); Hemoglobin 13.5 g/dl (14.0-18.0); Mean Corpuscular HGB Conc 29.6 g/dl (31.0-36.0); Mean Corpuscular Hemoglobin 26.3 pg (27.0-33.0); Mean Corpuscular Volume 88.7 fL (80.0-98.0); Mean Platelet Volume 11.4 fL (9.4-12.4); Platelet Count 219 X10*3/uL (160-400); Red Blood Count 5.14 X10*6/uL (4.60-5.80); Red Cell Distribution Width 15.8 % (11.0-16.0); White Blood Count 17.4 X10*3/uL (4.8-10.8)
[2021-06-07 06:25] LABS: INTERNATIONAL NORM RATIO 2.3 (0.9-1.1); Prothrombin Time 26.1 SEC (9.9-13.0)
[2021-06-07] MEDS: metroNIDAZOLE/NS 500 MG/100 ML PIGGYBACK 100 MG IV ×3 (06:29→22:30)
[2021-06-07 06:39] LABS: Anion Gap 12 (12-20); Blood Urea Nitrogen 11 mg/dL (9-16); Calcium 8.4 mg/dL (8.4-10.2); Carbon Dioxide 29 mmol/L (22-29); Chloride 100 mmol/L (96-108); Creatinine Clr Calc Pharmacy 91.8; Estimated Glomerular Filt Rate > 60; Glucose Random 94 mg/dL (60-115); Potassium 4.3 mmol/L (3.3-5.1); Sodium 137 mmol/L (135-145)
[2021-06-07 07:17] VITALS: BP 94/58; PULSE 104; RESP 20; TEMP 36.9; O2SAT 95
[2021-06-07] MEDS: Lactated Ringers 1,000 ML 125 ML IVCONT ×2 (07:41→13:55)
[2021-06-07] MEDS: Cholecalciferol (Vitamin D3) 25 MCG TABLET PO (07:41)
[2021-06-07] MEDS: Balsalazide Disodium 750 MG CAPSULE 2250 MG PO ×3 (07:41→20:23)
[2021-06-07] MEDS: Multivitamin TABLET 1 TAB PO (07:41)
--- NOTE | 2021-06-07 09:56 | P.PNGS_ITS ---
Subjective Subjective Date of Service: 06/10/21 Interval history: Says he feels okay denies any abdominal pain hungry and wants to eat he says his main complaint is that he has some chest discomfort with breathing no further fever Physical Exam Vital Signs: Vital Signs: Last Vital Signs Temp 98.5 F 06/07/21 07:17 Pulse 104 H 06/07/21 07:17 Resp 20 06/07/21 07:17 BP 94/58 L 06/07/21 07:17 Pulse Ox 95 06/07/21 07:17 BMI result Body Mass Index 45.9 Const: Other: morbidly obese General: comfortable and no acute distress Resp: Effort & Inspection: normal respiratory effort Cardio: Rhythm: abnormal rhythm GI: Other: stoma functioning well Palpation (GI): Soft to palpation, not firm, nontender and no guarding Objective Data Active Medications Acetaminophen (Acetaminophen 325 Mg Tablet) 650 mg PO Q6H PRN PRN Reason: Pain, Mild (Pain Scale 1-3) Last Admin: 06/06/21 09:11 Dose: 650 mg Documented by: MATTHIAS Albuterol Sulfate (Albuterol Sulfate 90 Mcg 8 Gm Inhaler) 2 puff INHALE Q4H PRN PRN Reason: shortness of breath or wheezing Last Admin: 06/05/21 12:09 Dose: 2 puff Documented by: EDITH Albuterol Sulfate (Albuterol Sulfate (0.042%) 1.25 Mg/3 Ml Vial.Neb) 1.25 mg INHALE RQ4H PRN PRN Reason: Shortness of Breath Balsalazide (Balsalazide Disodium 750 Mg Capsule) 2,250 mg PO TID [facility] Last Admin: 06/07/21 07:41 Dose: 2,250 mg Documented by: MATTHIAS Docusate Sodium (Docusate Sodium 100 Mg Capsule) 100 mg PO DAILY PRN PRN Reason: Constipation Ceftriaxone Sodium 1 gm/ (Sodium Chloride) 50 mls @ 100 mls/hr IV Q24H [facility] Last Infusion: 06/07/21 06:33 Dose: 0 mls/hr Documented by: BRINA Metronidazole (Flagyl) 500 mg in 100 mls @ 100 mls/hr IV Q8H [facility] Last Infusion: 06/07/21 07:35 Dose: 0 mls/hr Documented by: MATTHIAS Lactated Ringer's (Lr) 1,000 mls @ 125 mls/hr IVCONT .Q8H [facility] Last Admin: 06/07/21 07:41 Dose: 125 mls/hr Documented by: MATTHIAS Metoprolol Tartrate (Metoprolol Tartrate 25 Mg Tablet) 25 mg PO BID@1200,2100 [facility]; Protocol Last Admin: 06/06/21 21:00 Dose: 25 mg Documented by: BRINA Morphine Sulfate (Morphine Sulfate 4 Mg/Ml Cartridge) 4 mg IVPUSH Q4H PRN; Protocol PRN Reason: Pain, Severe (Pain Scale 7-10) Last Admin: 06/06/21 05:15 Dose: 4 mg Documented by: SONIA Multivitamins/Vitamin C (Multivitamin Tablet) 1 tab PO DAILY [facility] Last Admin: 06/07/21 07:41 Dose: 1 tab Documented by: MATTHIAS Ondansetron HCl (Ondansetron Hcl 4 Mg/2 Ml Vial) 4 mg IVPUSH Q8H PRN PRN Reason: Nausea and Vomiting Vitamin D (Cholecalciferol (Vitamin D3) 25 Mcg Tablet) 25 mcg PO DAILY [facility] Last Admin: 06/07/21 07:41 Dose: 25 mcg Documented by: MATTHIAS Labs CBC & Chem 7: 06/09/21 07:22 06/07/21 05:32 Labs: Laboratory Results - last 24 hr 06/06/21 06/06/21 06/07/21 15:48 16:47 05:32 MCV MCH MCHC RDW Plt Count MPV Absolute Nucleated RBC Nucleated RBC % (auto) PT 26.1 H INR 2.3 H Anion Gap Estim Creat Clear Calc Estimated GFR Random Glucose Lactic Acid 1.8 Calcium Urine Color YELLOW Urine Appearance CLEAR Urine pH 5.5 Ur Specific [place] 1.025 Urine Protein 1+ H Urine Glucose (UA) NEG Urine Ketones 5 Urine Blood NEG Urine Nitrite POS H Ur Leukocyte Esterase NEG Urine RBC 1-4 Urine WBC 1-4 Ur Squamous Epith Cells TRACE Urine Bacteria 1+ Urine Mucus TRACE 06/07/21 06/07/21 05:32 05:32 MCV 88.7 MCH 26.3 L MCHC 29.6 L RDW 15.8 Plt Count 219 MPV 11.4 Absolute Nucleated RBC 0.000 Nucleated RBC % (auto) 0.0 PT INR Anion Gap 12 Estim Creat Clear Calc 91.8 Estimated GFR > 60 Random Glucose 94 Lactic Acid Calcium 8.4 Urine Color Urine Appearance Urine pH Ur Specific [place] Urine Protein Urine Glucose (UA) Urine Ketones Urine Blood Urine Nitrite Ur Leukocyte Esterase Urine RBC Urine WBC Ur Squamous Epith Cells Urine Bacteria Urine Mucus Microbiology Microbiology Results: Microbiology 06/05/21 03:43 Blood Culture - Preliminary Blood - Venous No growth after 48 hours. 06/05/21 03:43 Blood Culture - Preliminary Blood - Venous No growth after 48 hours. Procedures Date of Service Date of Service: 06/07/21 Progress Note: A&P Assessment and plan (1) Cholecystitis: Status: Acute Assessment and Plan: patient was actually admitted for some chest discomfort had a CT scan and ultrasound showing some mild pericholecystic stranding he had leukocytosis as well but emanation did not reveal any significant tenderness on the abdomen nor Andrew's sign leukocytosis improved to 17 today no further fever would continue with IV antibiotic treatment cholecystostomy tube with IR was considered if he had worsening leukocytosis however, he really never had any significant complaints with regards to his right upper quadrant Fall Risk Details Current Medications: Current Medications Acetaminophen (Acetaminophen 325 Mg Tablet) 650 mg PO Q6H PRN PRN Reason: Pain, Mild (Pain Scale 1-3) Last Admin: 06/06/21 09:11 Dose: 650 mg Documented by: Albuterol Sulfate (Albuterol Sulfate 90 Mcg 8 Gm Inhaler) 2 puff INHALE Q4H PRN PRN Reason: shortness of breath or wheezing Last Admin: 06/05/21 12:09 Dose: 2 puff Documented by: Albuterol Sulfate (Albuterol Sulfate (0.042%) 1.25 Mg/3 Ml Vial.Neb) 1.25 mg INHALE RQ4H PRN PRN Reason: Shortness of Breath Balsalazide (Balsalazide Disodium 750 Mg Capsule) 2,250 mg PO TID [facility] Last Admin: 06/07/21 07:41 Dose: 2,250 mg Documented by: Docusate Sodium (Docusate Sodium 100 Mg Capsule) 100 mg PO DAILY PRN PRN Reason: Constipation Ceftriaxone Sodium 1 gm/ (Sodium Chloride) 50 mls @ 100 mls/hr IV Q24H [facility] Last Infusion: 06/07/21 06:33 Dose: Infused Documented by: Metronidazole (Flagyl) 500 mg in 100 mls @ 100 mls/hr IV Q8H [facility] Last Infusion: 06/07/21 07:35 Dose: Infused Documented by: Lactated Ringer's (Lr) 1,000 mls @ 125 mls/hr IVCONT .Q8H [facility] Last Admin: 06/07/21 07:41 Dose: 125 mls/hr Documented by: Metoprolol Tartrate (Metoprolol Tartrate 25 Mg Tablet) 25 mg PO BID@1200,2100 [facility]; Protocol Last Admin: 06/06/21 21:00 Dose: 25 mg Documented by: Morphine Sulfate (Morphine Sulfate 4 Mg/Ml Cartridge) 4 mg IVPUSH Q4H PRN; Protocol PRN Reason: Pain, Severe (Pain Scale 7-10) Last Admin: 06/06/21 05:15 Dose: 4 mg Documented by: Multivitamins/Vitamin C (Multivitamin Tablet) 1 tab PO DAILY [facility] Last Admin: 06/07/21 07:41 Dose: 1 tab Documented by: Ondansetron HCl (Ondansetron Hcl 4 Mg/2 Ml Vial) 4 mg IVPUSH Q8H PRN PRN Reason: Nausea and Vomiting Vitamin D (Cholecalciferol (Vitamin D3) 25 Mcg Tablet) 25 mcg PO DAILY [facility] Last Admin: 06/07/21 07:41 Dose: 25 mcg Documented by: Time Spent With Patient Time: Total time spent is greater than 50% in coordination of care (as documented) at patient's floor/unit and/or counseling patient: Time with patient: 15 - 24 minutes Quality Stroke Does the patient have a stroke diagnosis?: No VTE Prior VTE?: No VTE Risk Level:: Medical - moderate - high VTE Device Contraindication: N/A - Device Ordered VTE Drug Contraindication: Treatment Not Indicated
[2021-06-07 11:36] VITALS: BP 95/51; PULSE 108; RESP 20; TEMP 37.2; O2SAT 96
[2021-06-07] MEDS: Metoprolol Tartrate 25 MG TABLET PO ×2 (11:54→20:22)
--- NOTE | 2021-06-07 12:16 | HO.PM.IMPN ---
Subjective Subjective Date of Service: 06/07/21 Interval History: Seen and examined this morning No abdominal pain, nausea, vomiting; no shortness of breath, no cough Denies fever, chills output in ostomy bag more watery Wants diet advanced Review of Systems Review of Systems: Yes all other systems are reviewed and are negative Constitutional Constitutional: Denies chills and Denies fever(s) Cardiovascular Cardiovascular: Denies chest pain, Denies palpitations and Denies dyspnea Respiratory Respiratory: Denies cough and Denies dyspnea Gastrointestinal Gastrointestinal: Denies dyspepsia, Denies nausea and Denies vomiting Endocrine Endocrine: Denies palpitations Physical Exam Vital Signs: Vital Signs: Last Vital Signs Temp 98.9 F 06/07/21 11:36 Pulse 108 H 06/07/21 11:36 Resp 20 06/07/21 11:36 BP 95/51 L 06/07/21 11:36 Pulse Ox 96 06/07/21 11:36 BMI result Body Mass Index 45.9 Const: General: cooperative, healthy appearing, alert and awake Nutritional Appearance: obese Eyes: Pupils: Equal, round and reactive pupils present Resp: Effort & Inspection: normal respiratory effort Auscultation: no wheezes GI: Other: ostomy bag LLQ with liquid output Inspection: No distended Palpation (GI): Soft to palpation and nontender Neuro: Cranial nerves: Yes Equal, round and reactive pupils present Extrem: Other: moving all 4 extremities spontaneously Objective Data Active Medications Acetaminophen (Acetaminophen 325 Mg Tablet) 650 mg PO Q6H PRN PRN Reason: Pain, Mild (Pain Scale 1-3) Last Admin: 06/06/21 09:11 Dose: 650 mg Documented by: MATTHIAS Albuterol Sulfate (Albuterol Sulfate 90 Mcg 8 Gm Inhaler) 2 puff INHALE Q4H PRN PRN Reason: shortness of breath or wheezing Last Admin: 06/05/21 12:09 Dose: 2 puff Documented by: EDITH Albuterol Sulfate (Albuterol Sulfate (0.042%) 1.25 Mg/3 Ml Vial.Neb) 1.25 mg INHALE RQ4H PRN PRN Reason: Shortness of Breath Balsalazide (Balsalazide Disodium 750 Mg Capsule) 2,250 mg PO TID [facility] Last Admin: 06/07/21 07:41 Dose: 2,250 mg Documented by: MATTHIAS Docusate Sodium (Docusate Sodium 100 Mg Capsule) 100 mg PO DAILY PRN PRN Reason: Constipation Ceftriaxone Sodium 1 gm/ (Sodium Chloride) 50 mls @ 100 mls/hr IV Q24H [facility] Last Infusion: 06/07/21 06:33 Dose: 0 mls/hr Documented by: BRINA Metronidazole (Flagyl) 500 mg in 100 mls @ 100 mls/hr IV Q8H [facility] Last Infusion: 06/07/21 07:35 Dose: 0 mls/hr Documented by: MATTHIAS Lactated Ringer's (Lr) 1,000 mls @ 125 mls/hr IVCONT .Q8H [facility] Last Admin: 06/07/21 07:41 Dose: 125 mls/hr Documented by: MATTHIAS Metoprolol Tartrate (Metoprolol Tartrate 25 Mg Tablet) 25 mg PO BID@1200,2100 [facility]; Protocol Last Admin: 06/07/21 11:54 Dose: 25 mg Documented by: MATTHIAS Morphine Sulfate (Morphine Sulfate 4 Mg/Ml Cartridge) 4 mg IVPUSH Q4H PRN; Protocol PRN Reason: Pain, Severe (Pain Scale 7-10) Last Admin: 06/06/21 05:15 Dose: 4 mg Documented by: SONIA Multivitamins/Vitamin C (Multivitamin Tablet) 1 tab PO DAILY [facility] Last Admin: 06/07/21 07:41 Dose: 1 tab Documented by: MATTHIAS Ondansetron HCl (Ondansetron Hcl 4 Mg/2 Ml Vial) 4 mg IVPUSH Q8H PRN PRN Reason: Nausea and Vomiting Vitamin D (Cholecalciferol (Vitamin D3) 25 Mcg Tablet) 25 mcg PO DAILY [facility] Last Admin: 06/07/21 07:41 Dose: 25 mcg Documented by: MATTHIAS Labs CBC & Chem 7: 06/07/21 05:32 06/07/21 05:32 Labs: Laboratory Results - last 24 hr 06/06/21 06/06/21 06/07/21 15:48 16:47 05:32 MCV MCH MCHC RDW Plt Count MPV Absolute Nucleated RBC Nucleated RBC % (auto) PT 26.1 H INR 2.3 H Anion Gap Estim Creat Clear Calc Estimated GFR Random Glucose Lactic Acid 1.8 Calcium Urine Color YELLOW Urine Appearance CLEAR Urine pH 5.5 Ur Specific [place] 1.025 Urine Protein 1+ H Urine Glucose (UA) NEG Urine Ketones 5 Urine Blood NEG Urine Nitrite POS H Ur Leukocyte Esterase NEG Urine RBC 1-4 Urine WBC 1-4 Ur Squamous Epith Cells TRACE Urine Bacteria 1+ Urine Mucus TRACE 06/07/21 06/07/21 05:32 05:32 MCV 88.7 MCH 26.3 L MCHC 29.6 L RDW 15.8 Plt Count 219 MPV 11.4 Absolute Nucleated RBC 0.000 Nucleated RBC % (auto) 0.0 PT INR Anion Gap 12 Estim Creat Clear Calc 91.8 Estimated GFR > 60 Random Glucose 94 Lactic Acid Calcium 8.4 Urine Color Urine Appearance Urine pH Ur Specific [place] Urine Protein Urine Glucose (UA) Urine Ketones Urine Blood Urine Nitrite Ur Leukocyte Esterase Urine RBC Urine WBC Ur Squamous Epith Cells Urine Bacteria Urine Mucus Microbiology Microbiology Results: Microbiology 06/06/21 Unknown Urine Culture - Preliminary Urine clean catch - Urine scanlon top No growth to date. 06/05/21 03:43 Blood Culture - Preliminary Blood - Venous No growth after 48 hours. 06/05/21 03:43 Blood Culture - Preliminary Blood - Venous No growth after 48 hours. Assessment and Plan (1) Abdominal pain: Status: Acute (2) Cholecystitis: Status: Acute (3) Atrial fibrillation, chronic: Status: Acute Plan 66-year-old male with past medical history AFib on Coumadin, FABIOLA, Crohn's disease who presents to the hospital with abdominal pain found to have cholecystitis sepsis secondary to probable cholecystitis. wbc beginning to trend down but BP still on softer side meets criteria with tachycardia and leukocytosis; repeat lactic acid negative sepsis focused exam completed no significant abdominal pain at this time, therefor will rule out other causes of infection CXR showing bronchial wall thickening, chest CT negative for pneumonia; Urine culture negative continue current abx BCx from 06/05 negative; repeat cultures from 06/07 pending Abdominal pain initially presented with right sided discomfort CT abdomen showing gallstone and possible cholecystitis -?surgery following, consideration of cholecystostomy tube as patient is not a good surgical candidate but wbc trending down and no current abdominal pain; will continue to treat conservatively with abx at this time. - continue IV ceftriaxone and flagyl - will hold coumadin for possible surgical intervention - will repeat liver function Chronic AFib rate controlled INR 2.3 -hold coumadin for possible CCY tube placement -continue metoprolol as blood pressure allows Crohn's stable with no flare at this time continue home medications asthma no acute exacerbation prn breathing treatments DVT prophylaxis:? coumadin d/c; mechanical devices Medical necessity: pt requires ongoing inpatient care due to sepsis, probable cholecystitis requiring IV antibiotics and possible cholecystostomy tube and further workup for sepsis Attending: Dr. Dyer Quality Stroke Does the patient have a stroke diagnosis?: No VTE Prior VTE?: No VTE Risk Level:: Medical - moderate - high VTE Device Contraindication: N/A - Device Ordered VTE Drug Contraindication: Treatment Not Indicated
[2021-06-07 13:33] LABS: Alanine Aminotransferase 28 U/L (0-40); Albumin Level 3.2 g/dL (3.5-5.0); Alkaline Phosphatase 113 U/L (39-117); Aspartate Amino Transferase 24 U/L (5-37); Bilirubin Direct 0.7 mg/dL (0.0-0.5); Bilirubin Total 1.5 mg/dL (0.0-1.0)
[2021-06-07 15:20] LABS: CDiff Gene PCR NEGATIVE (Negative)
[2021-06-07 15:34] VITALS: BP 96/58; PULSE 103; RESP 20; TEMP 37.3; O2SAT 95
[2021-06-07 19:18] VITALS: BP 121/75; PULSE 106; RESP 18; TEMP 37.4; O2SAT 95
[2021-06-07 23:28] VITALS: BP 126/65; PULSE 88; RESP 18; TEMP 36.4; O2SAT 95
[2021-06-08] MEDS: Lactated Ringers 1,000 ML 125 ML IVCONT ×2 (01:34→11:46)
[2021-06-08] MEDS: Acetaminophen 325 MG TABLET 650 MG PO (01:56)
[2021-06-08 03:34] VITALS: BP 100/56; PULSE 67; RESP 16; TEMP 36.2; O2SAT 95
[2021-06-08] MEDS: cefTRIAXone sodium 1 GM in 0.9 % Sodium Chloride 50 ML IV (05:39)
[2021-06-08] MEDS: metroNIDAZOLE/NS 500 MG/100 ML PIGGYBACK 100 MG IV ×3 (06:16→22:49)
[2021-06-08 06:23] LABS: Hematocrit 41.7 % (42.0-52.0); Hemoglobin 12.2 g/dl (14.0-18.0); Mean Corpuscular HGB Conc 29.3 g/dl (31.0-36.0); Mean Corpuscular Hemoglobin 25.7 pg (27.0-33.0); Mean Platelet Volume 11.4 fL (9.4-12.4); Platelet Count 183 X10*3/uL (160-400); Red Blood Count 4.74 X10*6/uL (4.60-5.80); Red Cell Distribution Width 15.9 % (11.0-16.0); White Blood Count 14.2 X10*3/uL (4.8-10.8)
[2021-06-08 06:28] LABS: Prothrombin Time 22.6 SEC (9.9-13.0)
[2021-06-08 07:08] VITALS: BP 116/60; PULSE 88; RESP 20; TEMP 36.3; O2SAT 96
[2021-06-08] MEDS: Balsalazide Disodium 750 MG CAPSULE 2250 MG PO ×3 (07:30→21:22)
[2021-06-08] MEDS: Cholecalciferol (Vitamin D3) 25 MCG TABLET PO (07:30)
[2021-06-08] MEDS: Multivitamin TABLET 1 TAB PO (07:30)
--- NOTE | 2021-06-08 08:59 | PM.PNGS ---
Subjective Subjective Date of Service: 06/08/21 Interval history: Denies abdominal pain, nausea or vomiting; mild shortness of breath Physical Exam Vital Signs: Vital Signs: Last Vital Signs Temp 97.3 F 06/08/21 07:08 Pulse 88 06/08/21 07:08 Resp 20 06/08/21 07:08 BP 116/60 06/08/21 07:08 Pulse Ox 96 06/08/21 07:08 BMI result Body Mass Index 45.9 Const: General: no acute distress Nutritional Appearance: obese Orientation/consciousness: patient oriented x3 Resp: Effort & Inspection: normal respiratory effort GI: Other: soft, nontender, negative Andrew sign, ostomy patent and functioning Neuro: General: patient oriented x3 Extrem: General: Yes normal to inspection Objective Data Active Medications Acetaminophen (Acetaminophen 325 Mg Tablet) 650 mg PO Q6H PRN PRN Reason: Pain, Mild (Pain Scale 1-3) Last Admin: 06/08/21 01:56 Dose: 650 mg Documented by: GERMÁN Albuterol Sulfate (Albuterol Sulfate 90 Mcg 8 Gm Inhaler) 2 puff INHALE Q4H PRN PRN Reason: shortness of breath or wheezing Last Admin: 06/05/21 12:09 Dose: 2 puff Documented by: EDITH Albuterol Sulfate (Albuterol Sulfate (0.042%) 1.25 Mg/3 Ml Vial.Neb) 1.25 mg INHALE RQ4H PRN PRN Reason: Shortness of Breath Balsalazide (Balsalazide Disodium 750 Mg Capsule) 2,250 mg PO TID [facility] Last Admin: 06/08/21 07:30 Dose: 2,250 mg Documented by: SMITA Docusate Sodium (Docusate Sodium 100 Mg Capsule) 100 mg PO DAILY PRN PRN Reason: Constipation Ceftriaxone Sodium 1 gm/ (Sodium Chloride) 50 mls @ 100 mls/hr IV Q24H [facility] Last Infusion: 06/08/21 06:28 Dose: 0 mls/hr Documented by: GERMÁN Metronidazole (Flagyl) 500 mg in 100 mls @ 100 mls/hr IV Q8H [facility] Last Infusion: 06/08/21 07:25 Dose: 100 mls/hr Documented by: SMITA Lactated Ringer's (Lr) 1,000 mls @ 125 mls/hr IVCONT .Q8H [facility] Last Admin: 06/08/21 07:35 Dose: Not Given Documented by: SMITA Non-Admin Reason: IV Running Metoprolol Tartrate (Metoprolol Tartrate 25 Mg Tablet) 25 mg PO BID@1200,2100 [facility]; Protocol Last Admin: 06/07/21 20:22 Dose: 25 mg Documented by: GERMÁN Comments: CN=047/75 H=106 Morphine Sulfate (Morphine Sulfate 2 Mg/Ml Cartridge) 2 mg IVPUSH Q4H PRN; Protocol PRN Reason: Pain, Severe (Pain Scale 7-10) Multivitamins/Vitamin C (Multivitamin Tablet) 1 tab PO DAILY [facility] Last Admin: 06/08/21 07:30 Dose: 1 tab Documented by: SMITA Ondansetron HCl (Ondansetron Hcl 4 Mg/2 Ml Vial) 4 mg IVPUSH Q8H PRN PRN Reason: Nausea and Vomiting Vitamin D (Cholecalciferol (Vitamin D3) 25 Mcg Tablet) 25 mcg PO DAILY [facility] Last Admin: 06/08/21 07:30 Dose: 25 mcg Documented by: SMITA Labs CBC & Chem 7: 06/08/21 05:48 06/07/21 05:32 Labs: Laboratory Results - last 24 hr 06/07/21 06/07/21 06/08/21 05:32 13:38 05:48 MCV MCH MCHC RDW Plt Count MPV Absolute Nucleated RBC Nucleated RBC % (auto) PT 22.6 H INR 2.0 H Total Bilirubin 1.5 H Direct Bilirubin 0.7 H AST 24 ALT 28 Alkaline Phosphatase 113 Total Protein 6.0 L Albumin 3.2 L C. difficile Tox B Gene NEGATIVE 06/08/21 05:48 MCV 88.0 MCH 25.7 L MCHC 29.3 L RDW 15.9 Plt Count 183 MPV 11.4 Absolute Nucleated RBC 0.000 Nucleated RBC % (auto) 0.0 PT INR Total Bilirubin Direct Bilirubin AST ALT Alkaline Phosphatase Total Protein Albumin C. difficile Tox B Gene Microbiology Microbiology Results: Microbiology 06/06/21 16:45 Blood Culture - Preliminary Blood - Venous No growth after 24 hours. 06/06/21 15:45 Blood Culture - Preliminary Blood - Venous No growth after 24 hours. 06/06/21 Unknown Urine Culture - Preliminary Urine clean catch - Urine scanlon top No growth to date. 06/05/21 03:43 Blood Culture - Preliminary Blood - Venous No growth after 48 hours. 06/05/21 03:43 Blood Culture - Preliminary Blood - Venous No growth after 48 hours. Procedures Date of Service Date of Service: 06/08/21 Progress Note: A&P Assessment and plan (1) Cholecystitis: Status: Acute Plan patient admitted for chest discomfort found on CT to have mild pericholecystic stranding and leukocytosis. Laboratories today revealed WBC of 14.2 and abdominal examination is benign. No Andrew sign. Continue IV antibiotics with possible cholecystostomy tube if symptoms worsen . The patient expressed understanding and agrees with the plan. Fall Risk Details Current Medications: Current Medications Acetaminophen (Acetaminophen 325 Mg Tablet) 650 mg PO Q6H PRN PRN Reason: Pain, Mild (Pain Scale 1-3) Last Admin: 06/08/21 01:56 Dose: 650 mg Documented by: Albuterol Sulfate (Albuterol Sulfate 90 Mcg 8 Gm Inhaler) 2 puff INHALE Q4H PRN PRN Reason: shortness of breath or wheezing Last Admin: 06/05/21 12:09 Dose: 2 puff Documented by: Albuterol Sulfate (Albuterol Sulfate (0.042%) 1.25 Mg/3 Ml Vial.Neb) 1.25 mg INHALE RQ4H PRN PRN Reason: Shortness of Breath Balsalazide (Balsalazide Disodium 750 Mg Capsule) 2,250 mg PO TID [facility] Last Admin: 06/08/21 07:30 Dose: 2,250 mg Documented by: Docusate Sodium (Docusate Sodium 100 Mg Capsule) 100 mg PO DAILY PRN PRN Reason: Constipation Ceftriaxone Sodium 1 gm/ (Sodium Chloride) 50 mls @ 100 mls/hr IV Q24H [facility] Last Infusion: 06/08/21 06:28 Dose: Infused Documented by: Metronidazole (Flagyl) 500 mg in 100 mls @ 100 mls/hr IV Q8H [facility] Last Infusion: 06/08/21 07:25 Dose: Infused Documented by: Lactated Ringer's (Lr) 1,000 mls @ 125 mls/hr IVCONT .Q8H [facility] Last Admin: 06/08/21 07:35 Dose: Not Given Documented by: Metoprolol Tartrate (Metoprolol Tartrate 25 Mg Tablet) 25 mg PO BID@1200,2100 [facility]; Protocol Last Admin: 06/07/21 20:22 Dose: 25 mg Documented by: Morphine Sulfate (Morphine Sulfate 2 Mg/Ml Cartridge) 2 mg IVPUSH Q4H PRN; Protocol PRN Reason: Pain, Severe (Pain Scale 7-10) Multivitamins/Vitamin C (Multivitamin Tablet) 1 tab PO DAILY [facility] Last Admin: 06/08/21 07:30 Dose: 1 tab Documented by: Ondansetron HCl (Ondansetron Hcl 4 Mg/2 Ml Vial) 4 mg IVPUSH Q8H PRN PRN Reason: Nausea and Vomiting Vitamin D (Cholecalciferol (Vitamin D3) 25 Mcg Tablet) 25 mcg PO DAILY [facility] Last Admin: 06/08/21 07:30 Dose: 25 mcg Documented by: Time Spent With Patient Time: Total time spent is greater than 50% in coordination of care (as documented) at patient's floor/unit and/or counseling patient: Time with patient: 15 - 24 minutes Quality Stroke Does the patient have a stroke diagnosis?: No VTE Prior VTE?: No VTE Risk Level:: Medical - moderate - high VTE Device Contraindication: N/A - Device Ordered VTE Drug Contraindication: Treatment Not Indicated
[2021-06-08 11:27] VITALS: BP 125/66; PULSE 105; RESP 18; TEMP 36.8; O2SAT 98
[2021-06-08] MEDS: Metoprolol Tartrate 25 MG TABLET PO ×2 (11:45→21:22)
--- NOTE | 2021-06-08 11:56 | P.PNIM_ITS ---
Subjective Subjective Date of Service: 06/08/21 Interval History: seen and examined this morning no abdominal pain, nausea or vomiting intermittently reports mild shortness of breath, denies cough Review of Systems Review of Systems: Yes all other systems are reviewed and are negative Constitutional Constitutional: Denies chills and Denies fever(s) Cardiovascular Cardiovascular: Denies chest pain, Denies palpitations and Denies dyspnea Respiratory Respiratory: Denies cough and Denies dyspnea Gastrointestinal Gastrointestinal: Denies abdominal pain, Denies nausea and Denies vomiting Endocrine Endocrine: Denies palpitations Physical Exam 2 Vital Signs: Vital Signs: Last Vital Signs Temp 98.3 F 06/08/21 11:27 Pulse 105 H 06/08/21 11:27 Resp 18 06/08/21 11:27 BP 125/66 06/08/21 11:27 Pulse Ox 98 06/08/21 11:27 BMI result Body Mass Index 45.9 Const: General: cooperative, healthy appearing, alert and awake Nutritional Appearance: obese Eyes: Pupils: Equal, round and reactive pupils present Resp: Other: diminished breath sounds b/l; no wheezing Effort & Inspection: normal respiratory effort, able to speak in complete sentences, no audible wheezes and not tachypneic Auscultation: no wheezes GI: Other: ostomy bag LLQ with liquid output Inspection: No distended Palpation (GI): Soft to palpation and nontender Neuro: Cranial nerves: Yes Equal, round and reactive pupils present Extrem: Other: moving all 4 extremities spontaneously Objective Data Active Medications Acetaminophen (Acetaminophen 325 Mg Tablet) 650 mg PO Q6H PRN PRN Reason: Pain, Mild (Pain Scale 1-3) Last Admin: 06/08/21 01:56 Dose: 650 mg Documented by: GERMÁN Albuterol Sulfate (Albuterol Sulfate 90 Mcg 8 Gm Inhaler) 2 puff INHALE Q4H PRN PRN Reason: shortness of breath or wheezing Last Admin: 06/05/21 12:09 Dose: 2 puff Documented by: EDITH Albuterol Sulfate (Albuterol Sulfate (0.042%) 1.25 Mg/3 Ml Vial.Neb) 1.25 mg INHALE RQ4H PRN PRN Reason: Shortness of Breath Balsalazide (Balsalazide Disodium 750 Mg Capsule) 2,250 mg PO TID [facility] Last Admin: 06/08/21 07:30 Dose: 2,250 mg Documented by: SMITA Docusate Sodium (Docusate Sodium 100 Mg Capsule) 100 mg PO DAILY PRN PRN Reason: Constipation Ceftriaxone Sodium 1 gm/ (Sodium Chloride) 50 mls @ 100 mls/hr IV Q24H [facility] Last Infusion: 06/08/21 06:28 Dose: 0 mls/hr Documented by: CASTILM Metronidazole (Flagyl) 500 mg in 100 mls @ 100 mls/hr IV Q8H [facility] Last Infusion: 06/08/21 07:25 Dose: 100 mls/hr Documented by: SMITA Lactated Ringer's (Lr) 1,000 mls @ 125 mls/hr IVCONT .Q8H [facility] Last Admin: 06/08/21 11:46 Dose: 125 mls/hr Documented by: SMITA Metoprolol Tartrate (Metoprolol Tartrate 25 Mg Tablet) 25 mg PO BID@1200,2100 [facility]; Protocol Last Admin: 06/08/21 11:45 Dose: 25 mg Documented by: SMITA Morphine Sulfate (Morphine Sulfate 2 Mg/Ml Cartridge) 2 mg IVPUSH Q4H PRN; P rotocol PRN Reason: Pain, Severe (Pain Scale 7-10) Multivitamins/Vitamin C (Multivitamin Tablet) 1 tab PO DAILY [facility] Last Admin: 06/08/21 07:30 Dose: 1 tab Documented by: SMITA Ondansetron HCl (Ondansetron Hcl 4 Mg/2 Ml Vial) 4 mg IVPUSH Q8H PRN PRN Reason: Nausea and Vomiting Vitamin D (Cholecalciferol (Vitamin D3) 25 Mcg Tablet) 25 mcg PO DAILY [facility] Last Admin: 06/08/21 07:30 Dose: 25 mcg Documented by: SMITA Labs CBC & Chem 7: 06/08/21 05:48 06/07/21 05:32 Labs: Laboratory Results - last 24 hr 06/07/21 06/07/21 06/08/21 05:32 13:38 05:48 MCV MCH MCHC RDW Plt Count MPV Absolute Nucleated RBC Nucleated RBC % (auto) PT 22.6 H INR 2.0 H Total Bilirubin 1.5 H Direct Bilirubin 0.7 H AST 24 ALT 28 Alkaline Phosphatase 113 Total Protein 6.0 L Albumin 3.2 L C. difficile Tox B Gene NEGATIVE 06/08/21 05:48 MCV 88.0 MCH 25.7 L MCHC 29.3 L RDW 15.9 Plt Count 183 MPV 11.4 Absolute Nucleated RBC 0.000 Nucleated RBC % (auto) 0.0 PT INR Total Bilirubin Direct Bilirubin AST ALT Alkaline Phosphatase Total Protein Albumin C. difficile Tox B Gene Microbiology Microbiology Results: Microbiology 06/06/21 Unknown Urine Culture - Final Urine clean catch - Urine scanlon top No growth. 06/06/21 16:45 Blood Culture - Preliminary Blood - Venous No growth after 24 hours. 06/06/21 15:45 Blood Culture - Preliminary Blood - Venous No growth after 24 hours. Assessment and Plan (1) Abdominal pain: Status: Acute (2) Cholecystitis: Status: Acute Plan 66-year-old male with past medical history AFib on Coumadin, FABIOLA, Crohn's disease who presents to the hospital with abdominal pain found to have cholecystitis sepsis secondary to probable cholecystitis. wbc continues to trend down. met criteria with tachycardia and leukocytosis; repeat lactic acid negative sepsis focused exam completed no significant abdominal pain at this time, therefor will rule out other causes of infection CXR showing bronchial wall thickening, chest CT negative for pneumonia; Urine culture negative continue current abx, ceftriaxone and flagyl BCx from 06/05, 06/07 negative Abdominal pain initially presented with right sided discomfort CT abdomen showing gallstone and possible cholecystitis surgery following, consideration of cholecystostomy tube as patient is not a good surgical candidate but wbc trending down and no current abdominal pain; will continue to treat conservatively with abx at this time. repeat liver function with increase in total bili but otherwise normal - continue IV ceftriaxone and flagyl - will hold coumadin for possible surgical intervention - will advance diet Dyspnea intermittent mild dyspnea, no chest pain or palpitations chest CT negative for pneumonia, showing possible changes r/t asthma or atypical infection or could also be chronic; no wheezing on exam trop and bnp negative echo from march 2020 with presevered EF lexiscan stress test from 04/2020 negative for ischemia no wheezing on exam to suggest asthma exacerbation ?r/t hypoventilation/probable restrictive lung disease from obesity/deconditioning Chronic AFib rate controlled INR 2.0 -hold coumadin for possible CCY tube placement -continue metoprolol as blood pressure allows Crohn's stable with no flare at this time continue home medications asthma no acute exacerbation, no wheezing on exam continue prn breathing treatments DVT prophylaxis:? coumadin d/c; mechanical devices Medical necessity: pt requires ongoing inpatient care due to sepsis, probable cholecystitis requiring IV antibiotics and possible cholecystostomy tube and further workup for sepsis Attending: Dr. Trevino Quality Stroke Does the patient have a stroke diagnosis?: No VTE Prior VTE?: No VTE Risk Level:: Medical - moderate - high VTE Device Contraindication: N/A - Device Ordered VTE Drug Contraindication: Treatment Not Indicated
[2021-06-08 12:55] LABS: Procalcitonin 0.62 ng/mL
[2021-06-08 16:00] VITALS: BP 118/72; PULSE 90; RESP 17; TEMP 36.9; O2SAT 95
[2021-06-08 20:00] VITALS: BP 120/69; PULSE 85; RESP 17; TEMP 36.8; O2SAT 96
[2021-06-09] VITALS: BP 113/61; PULSE 86; RESP 16; TEMP 36.9; O2SAT 95
[2021-06-09 04:00] VITALS: BP 108/61; PULSE 91; RESP 16; TEMP 36.4; O2SAT 96
[2021-06-09] MEDS: cefTRIAXone sodium 1 GM in 0.9 % Sodium Chloride 50 ML IV (05:18)
[2021-06-09] MEDS: metroNIDAZOLE/NS 500 MG/100 ML PIGGYBACK 100 MG IV (05:55)
[2021-06-09 07:02] LABS: INTERNATIONAL NORM RATIO 1.6 (0.9-1.1); Prothrombin Time 17.9 SEC (9.9-13.0)
[2021-06-09 07:11] VITALS: BP 111/66; PULSE 91; RESP 20; TEMP 36.7; O2SAT 95
[2021-06-09] MEDS: Cholecalciferol (Vitamin D3) 25 MCG TABLET PO (08:41)
[2021-06-09] MEDS: Multivitamin TABLET 1 TAB PO (08:41)
[2021-06-09] MEDS: Balsalazide Disodium 750 MG CAPSULE 2250 MG PO (08:41)
[2021-06-09 09:07] LABS: Hematocrit 41.7 % (42.0-52.0); Hemoglobin 12.3 g/dl (14.0-18.0); Mean Corpuscular HGB Conc 29.5 g/dl (31.0-36.0); Mean Corpuscular Volume 88.2 fL (80.0-98.0); Mean Platelet Volume 11.6 fL (9.4-12.4); Platelet Count 204 X10*3/uL (160-400); Red Blood Count 4.73 X10*6/uL (4.60-5.80); Red Cell Distribution Width 16.1 % (11.0-16.0); White Blood Count 11.6 X10*3/uL (4.8-10.8)
--- NOTE | 2021-06-09 09:36 | PM.DS ---
DS: Providers Provider Date of Service: 06/09/21 Date of admission: 06/05/21 05:23 Date of discharge: 06/09/21 Primary care physician: Unknown Physician Consults: 06/05/21 05:21 Consult to General Surgery Routine Consulting Provider: Memo Mata Reason for consultation: Cholecystitis Has provider been notified: Yes Attending physician on discharge: Ta Deutsch Discharging clinician: Nancy Ring DS: Diagnosis Discharge Diagnosis (1) Abdominal pain: Status: Acute (2) Cholecystitis: Status: Acute (3) Atrial fibrillation, chronic: Status: Acute DS: Summary Hospital Course Hospital Course: From H&P on day of admission 66-year-old male with extensive past medical history including? persistent AFib, anemia, asthma, Crohn's disease, history of empyema, FABIOLA, presents to the hospital with complaints of epigastric and right upper quadrant abdominal pain.? He describes it as chest pain but then he points to his epigastric and right upper quadrant ? Region.? He feels stabbing pain, radiating across the abdomen, associated with nausea with no vomiting, loss of appetite.? The symptoms started the night prior to presentation.? Describes the pain as 10/10, constant, ? Slightly relieved by pain medication and no worsening factors.? Patient has a history of Crohn's status post resection in the past but reports no similar previous episode.? Denies any chest pain,? he has some shortness of breath is chronic, denies any diarrhea constipation, no urinary symptoms and no lower extremity edema.? No headache or change in vision, no weakness numbness or tingling.? On arrival to the ED patient hemodynamically stable with no significant abnormal vitals Labs are significant for? WBC of 12.5, hemoglobin of 14.7, left shift, INR of 2.1, BUN of 17, creatinine of 1.18, LACTIC OF 2.2, ABDOMINAL PELVIC CT SHOWS Gallstone in the proximal gallbladder with mild pericholecystic stranding concerning for mild changes of cholecystitis surgery was consulted, does not feel the patient is a surgical candidate and will be admitted with IV antibiotics sepsis secondary to probable cholecystitis. Initially met criteria with tachycardia and leukocytosis. He initially presented with right sided discomfort. CT abdomen showing gallstone and possible cholecystitis. He was admitted to the medicine service and started IV antibiotics. He was seen in consultation by surgery, who did not feel of the a patient represented a good surgical candidate. consideration was made to place a cholecystostomy tube however his leukocytosis trended down and he did not have any recurrent abdominal pain therefore conservative management with antibiotics was continued. His white count trended down and his diet was advanced. He is currently tolerating regular diet without any abdominal pain. Due to lack of significant abdominal pain workup was pursued to rule out other causes of infection. Urinalysis and urine culture was negative, C diff negative. Blood cultures negative to date. Chest CT showing bronchial wall thickening/atypical/viral infection vss chronic changes. He did not have any cough but did report some intermittent shortness of breath. No associated chest pain or palpitations. Troponin and bnp were negative. echo from march 2020 with persevered EF and no leg edema or evidence of fluid overload to suggest CHF. Lexiscan stress test from 04/2020 negative for ischemia, no chest pain or ekg changes to suggest cardiac cause of dyspnea. No wheezing on exam to suggest asthma exacerbation. Intermittent dyspnea probably related to hypoventilation/probable restrictive lung disease from obesity and deconditioning. However, procalitonin was elevated to patient was started on azithromycin to cover for atypical lung infection. He will be discharge home to complete antibiotics for both his lungs and cholecystitis. He should call to schedule follow-up appointment with Dr. Mata from General surgery in 1 week as well as his PCP. Chronic AFib. Heart rate remained controlled. His coumadin was placed on hold for possible surgical intervention. He will resume his Coumadin today and has a regularly scheduled Coumadin clinic appointment tomorrow. His dose of Coumadin should be adjusted appropriately based on his INR level at that time. Time Spent with Patient Time attestation: Total time spent providing and/or coordinating discharge services: Discharge coordination time: Greater than 30 minutes Quality: Stroke Does the patient have a stroke diagnosis?: No Physical Exam Vital Signs: Vital Signs: Last Vital Signs Temp 98.1 F 06/09/21 07:11 Pulse 91 06/09/21 07:11 Resp 20 06/09/21 07:11 BP 111/66 06/09/21 07:11 Pulse Ox 95 06/09/21 07:11 BMI result Body Mass Index 45.9 Const: General: cooperative, healthy appearing, alert and awake Nutritional Appearance: obese Eyes: Pupils: Equal, round and reactive pupils present Resp: Other: diminished breath sounds b/l; no wheezing Effort & Inspection: normal respiratory effort, able to speak in complete sentences, no audible wheezes and not tachypneic Auscultation: no wheezes GI: Other: ostomy bag LLQ with liquid output Inspection: No distended Palpation (GI): Soft to palpation and nontender Neuro: Cranial nerves: Yes Equal, round and reactive pupils present Extrem: Other: moving all 4 extremities spontaneously DS: Data Data Completed and Pending Labs on day of discharge: Laboratory Results - last 24 hr 06/07/21 06/09/21 06/09/21 06:10 05:48 07:22 WBC 11.6 H RBC 4.73 Hgb 12.3 L Hct 41.7 L MCV 88.2 MCH 26.0 L MCHC 29.5 L RDW 16.1 H Plt Count 204 MPV 11.6 Absolute Nucleated RBC 0.000 Nucleated RBC % (auto) 0.0 PT 17.9 H INR 1.6 H Procalcitonin 0.62 Preliminary micro results at discharge 06/06/21 16:45 Blood Culture - Preliminary Blood - Venous No growth after 48 hours. 06/06/21 15:45 Blood Culture - Preliminary Blood - Venous No growth after 48 hours. 06/05/21 03:43 Blood Culture - Preliminary Blood - Venous No growth after 48 hours. 06/05/21 03:43 Blood Culture - Preliminary Blood - Venous No growth after 48 hours. Discharge Plan Discharge Patient Disposition: Home, Self-Care Discharge Diagnosis: cholecystitis Referrals: Memo Mata MD [Physician] - 1 Week Physician,Unknown J [Primary Care Provider] - 1 Week Discharge Medications: New azithromycin 500 mg tablet 500 mg PO DAILY 3 Days Qty: 3 0RF amoxicillin-pot clavulanate 875-125 mg tablet 1 tab PO BID 7 Days Qty: 14 0RF Continued albuterol sulfate [ProAir HFA] 90 mcg/actuation HFA aerosol inhaler 2 puff inhalation Q4H PRN (Reason: shortness of breath or wheezing) Qty: 17 2RF furosemide 20 mg tablet 20 mg PO DAILY Qty: 30 2RF Fasenra 30 mg/mL syringe 30 mg subcut Q8W 0RF Rx Instructions: Every 4 weeks for the 1st 3 doses, then every 8 weeks. PT stated that he is due for his injection on Thursday06/10/21 warfarin 5 mg tablet 5 mg PO MOTH 0RF warfarin 5 mg tablet 2.5 mg PO SUTUWEFRSA 0RF metoprolol tartrate 25 mg tablet 25 tab PO BID@1200,2100 0RF cholecalciferol (vitamin D3) 25 mcg (1,000 unit) Tablet 25 mcg PO DAILY 0RF krill oil 500 mg capsule 500 mg PO DAILY 0RF Adult 50 Plus Probiotic 4 billion cell capsule 4,000 mmu cells PO DAILY 0RF Rx Instructions: administer with a meal multivitamin Tablet 1 tab PO DAILY 0RF balsalazide 750 mg capsule 2,250 mg PO TID 0RF No Action (DME) BreatheRite MDI Spacer Spacer See Rx Instructions .ROUTE .MEDSUPPLY Qty: 1 0RF Rx Instructions: As directed Discharge Orders: Discharge Order (Routine); Ordered 06/09/21 Ordered By: Nancy Ring Diet: low fat, low cholesterol Activity on Discharge: As tolerated Stand Alone Forms: Patient Portal Discharge page Care Plan Goals: See below Health Concerns: Acute cholecystitis Plan of Treatment: Complete entire course of antibiotics Call to schedule follow up with Dr. Mata in 1 week Call to schedule follow up with PCP Resume taking coumadin today. Have your INR checked tomorrow at your regularly scheduled appointment at the coumadin clinic Recommend following low fat diet, avoid fried foods Assessment: acute cholecystitis treated conservatively Discharge Date/Time: 06/09/21 14:11
--- NOTE | 2021-06-09 09:51 | MHC.CM.PN ---
D/C order for home, self care. CM acknowledge.
[2021-06-09] MEDS: Azithromycin 500 MG in 0.9 % Sodium Chloride 250 ML 125 MG IV (09:54)
[2021-06-09 11:38] VITALS: BP 110/68; PULSE 107; RESP 20; TEMP 36.4; O2SAT 95
[2021-06-09] MEDS: Metoprolol Tartrate 25 MG TABLET PO (12:08)
== END 2021-06-09 14:11 | disposition home or self-care (01) ==
LOC: HO.ED 06-05 03:48 → HO.EDOVER 06-05 05:33 → HO.S3 06-05 18:00
PROVIDERS: Admitting Provider Internal Medicine; Emergency Provider Student in an Organized Health Care Education/Training Program; Visit Provider Physician Assistant Medical
DX: K81.0 Acute cholecystitis (principal); A41.9 Sepsis, unspecified organism; E87.2 Acidosis; I48.19 Other persistent atrial fibrillation; E66.01 Morbid (severe) obesity due to excess calories; J45.909 Unspecified asthma, uncomplicated; Z68.42 Body mass index [BMI] 45.0-49.9, adult; K50.90 Crohn's disease, unspecified, without complications; G47.33 Obstructive sleep apnea (adult) (pediatric); Z20.822 Contact with and (suspected) exposure to COVID-19; Z79.01 Long term (current) use of anticoagulants; Z79.899 Other long term (current) drug therapy
CPT/HCPCS: 36415; 71045; 71250; 74177; 76705; 80048; 80076; 81001; 83605; 83690; 83880; 84145; 84484; 85025; 85027; 85610; 87040; 87086; 87493; 87635; 93005; 94640; 96365; 96375; 99285; J0456; J0696; J1170; J2270; J2543; Q9967

== ENCOUNTER 2021-06-10 08:04 | Outpatient (REF) | payer OTHER, SELFPAY | END 2021-06-10 08:05 | disposition home or self-care (01) | LOC: HO.MDS 08:04 | PROVIDERS: PCP Internal Medicine; Visit Provider Internal Medicine Pulmonary Disease | DX: J45.40 Moderate persistent asthma, uncomplicated (principal) | CPT/HCPCS: 85610; 96372; 99211; J0517 ==

== ENCOUNTER → 2021-06-11 09:43 | Outpatient (BNVA) | payer OTHER, SELFPAY | PROVIDERS: PCP Internal Medicine; Visit Provider Internal Medicine Pulmonary Disease | DX: G47.33 Obstructive sleep apnea (adult) (pediatric) (principal); J45.909 Unspecified asthma, uncomplicated; Z91.09 Other allergy status, other than to drugs and biological substances; Z79.899 Other long term (current) drug therapy; Z99.89 Dependence on other enabling machines and devices | CPT/HCPCS: 99212 ==

== ENCOUNTER → 2021-06-14 10:39 | Outpatient (BNVA) | payer OTHER, SELFPAY | PROVIDERS: PCP Internal Medicine; Visit Provider Internal Medicine | DX: I48.19 Other persistent atrial fibrillation (principal); Z79.01 Long term (current) use of anticoagulants; Z51.81 Encounter for therapeutic drug level monitoring | CPT/HCPCS: 85610; 99211 ==

== ENCOUNTER 2021-06-17 16:42 | Inpatient (IN) | payer OTHER, SELFPAY ==
[2021-06-17] VITALS (9 sets, daily range): BP systolic 84–112; BP diastolic 46–68; PULSE 89–160; RESP 18–22; TEMP 36.7–37.8; O2SAT 88–98; BMI 43.5
--- NOTE | ~2021-06-17 | XR_ITS ---
EXAMINATION: XR CHEST CLINICAL INFORMATION: Shortness of breath. COMPARISON: CT chest and chest radiograph dated from 06/06/2021. TECHNIQUE: Frontal view of the chest was obtained. FINDINGS: Stable prominence of the cardiomediastinal silhouette. EKG wires overlie the chest. Questionable new airspace opacities in the retrocardiac region and left lower lobe. Otherwise, stable interstitial thickening and subpleural scarring bilaterally. No significant pleural effusion. No pneumothorax. No acute osseous findings. XR/XR chest 1V IMPRESSION: When compared to the examination from 06/06/2021, there is increased density in the retrocardiac region and left lower lobe in which aspiration or developing infiltrates cannot be excluded. This could also be potentially artifactual and related with slight patient's rotation. Clinical correlation is needed, and a follow-up examination is recommended to assure adequate resolution.
--- NOTE | ~2021-06-17 | NM_ITS ---
EXAMINATION: BILIARY TRACT IMAGING STUDY CLINICAL INFORMATION: Abdominal pain, fever, cholecystitis.. COMPARISON: No previous biliary scan is available for comparison. The diagnostic CT scan of the abdomen and pelvis, dated 06/05/2021, is available for comparison.. TECHNIQUE: Serial gamma scintillation camera images were obtained over the abdomen for a total observation period of 2 hours minutes following the intravenous administration of 5 mCi Tc-99m Mebrofenin. FINDINGS: There is good concentration of activity in the liver by 5 minutes post injection. Biliary activity is visualized by 10 minutes. Small bowel is well visualized by 15 minutes. The gallbladder is nonvisualized and any time during the study up to 2 hours post injection. At 2 hours there is almost complete clearance of activity from the liver and visualization of diffuse small bowel activity but no visualization of the gallbladder. NM/NM hepatobiliary wo pharm IMPRESSION: Nonvisualization the gallbladder is evidence of an obstructed cystic duct and strong evidence to suggest the diagnosis of acute cholecystitis. This can also be seen with chronic cholecystitis. The common bile duct is patent. Liver function appears normal.
--- NOTE | ~2021-06-17 | CT_ITS ---
EXAMINATION: CT CHEST WITHOUT CONTRAST CLINICAL INFORMATION: Pneumonia COMPARISON: Chest x-ray 06/17/2021 TECHNIQUE: Multidetector volumetric CT imaging of the chest was done. Axial MIP volume rendering provided. Sagittal and coronal reformatted images were obtained. This CT examination was performed using dose optimization techniques as appropriate, variously including the following: *Automated exposure control *Adjustment of mA and/or kV according to patient size (this includes techniques or standardized protocols for targeted exams where dose is matched to indication/reason for exam; i.e. extremities or head) *Use of iterative reconstruction technique DLP: 519 mGy-cm FINDINGS: CROP PULLER: Moderately expanded lungs. LUNGS: The lungs are well-expanded with the patchy airspace opacities left upper lobe and left lower lobe consistent with pneumonia. The left upper lung and right lung remains clear and expanded. MEDIASTINUM: The thyroid lobes are symmetrical and normal with a central hypodensity right lobe. Central trachea and the bronchi widely patent. The heart size and great vessels are normal caliber. There is no pericardial effusion. PLEURA: There is no pleural effusion. No pleural mass or thickening. AXILLA: No lymphadenopathy. UPPER ABDOMEN: Visualized liver, spleen, pancreas and bilateral adrenal glands are normal. OSSEOUS STRUCTURES: Unremarkable CT/CT chest wo con IMPRESSION: Left lower lobe infiltrate. Fleischner guidelines were followed.
[2021-06-17] MEDS: dilTIAZem HCL 50 MG/10 ML VIAL 20 MG IVPUSH (16:50)
--- NOTE | 2021-06-17 16:51 | ECG_ITS ---
Test Reason : tachycardia Blood Pressure : / mmHG Vent. Rate : 110 BPM Atrial Rate : 000 BPM P-R Int : 000 ms QRS Dur : 086 ms QT Int : 316 ms P-R-T Axes : 000 -09 012 degrees QTc Int : 427 ms Atrial fibrillation with rapid ventricular response Nonspecific ST abnormality Abnormal ECG When compared with ECG of 04-JUN-2021 22:47, No significant change was found Referred By: Max Narayanan Electronically Signed By:Shaggy Tejada
[2021-06-17 17:03] LABS: Glucose, Whole Blood 149 mg/dL (60-115)
--- NOTE | 2021-06-17 17:15 | ED.ARRPALP ---
HPI - Arrhythmia/Palpitations General Chief Complaint: Arrhythmia/Palpitations Stated Complaint: WEAKNESS WITH AFIB Time Seen by Provider: 06/17/21 16:49 Source: patient Mode of arrival: EMS Limitations: no limitations History of Present Illness HPI narrative: Patient with hx of atrial fibrillation comes for help as he slipped and fell in the bathroom and could not get up. No significant injuries no head injury no loss of consciousness, on EMS arrival noticed to be in AFib with heart rate 180 patient is unaware of tachycardia EMS gave total of 10 mg of metoprolol IV without any response when patient arrived patient ventricular rate was 160s patient denies any chest pain feels slight short of breath and weak Related Data Home Medications Medication Instructions Recorded Confirmed balsalazide 750 mg capsule 2,250 mg PO TID 03/02/20 06/14/21 krill oil 500 mg capsule 500 mg PO DAILY 09/11/20 06/14/21 lactobacillus combination no.9 4 4,000 mmu cells PO DAILY 09/11/20 06/14/21 billion cell capsule (Adult 50 Plus Probiotic) multivitamin 1 tab PO DAILY 09/11/20 06/14/21 benralizumab 30 mg/mL subcutaneous 30 mg SUBCUT Q8W 06/05/21 06/14/21 syringe (Fasenra) cholecalciferol (vitamin D3) 25 25 mcg PO DAILY 06/05/21 06/14/21 mcg (1,000 unit) tablet metoprolol tartrate 25 mg tablet 25 tab PO BID@1200,2100 06/05/21 06/14/21 warfarin 5 mg tablet 2.5 mg PO SUTUWEFRSA 06/05/21 06/14/21 warfarin 5 mg tablet 5 mg PO MOTH 06/05/21 06/14/21 prednisone 50 mg tablet 50 mg PO DAILY 06/14/21 06/14/21 Previous Rx's Medication Instructions Recorded inhalational spacing device #1 ea 09/11/20 (BreatheRite MDI Spacer) albuterol sulfate 90 mcg/actuation 2 puff INHALATION Q4H PRN #17 g 01/07/21 aerosol inhaler (ProAir HFA) amoxicillin 875 mg-potassium 1 tab PO BID 7 Days #14 tab 06/09/21 clavulanate 125 mg tablet Symbicort 160 mcg-4.5 2 puff INHALATION BID 30 Days #1 06/11/21 mcg/actuation HFA aerosol inhaler ea NS (budesonide-formoterol) furosemide 20 mg tablet 20 mg PO DAILY #90 tab 06/13/21 Allergies Allergy/AdvReac Type Severity Reaction Status Date / Time No Known Allergies Allergy Verified 06/14/21 10:48 Review of Systems Review of Systems: Yes all other systems are reviewed and are negative [facility] Past Medical History Medical History A-fib Acquired deformity of toenail Anal fistula Anemia Asthma Asthma Atrial fibrillation, chronic Colostomy in place Crohn disease Current use of retirement anticoagulation Decreased pulses in feet Empyema lung Empyema of left pleural space Moderate persistent asthma Numbness and tingling of lower extremity FABIOLA (obstructive sleep apnea) FABIOLA on CPAP Persistent atrial fibrillation Skin macule or macular rash Vitamin D deficiency Surgical History History of appendectomy History of bowel resection History of creation of ostomy Family History Family History Father Emphysema lung HTN (hypertension) Pulmonary fibrosis Mother HTN (hypertension) Social History Social History Household Members: Spouse Housing: Apartment Do you presently have visiting nurse or other home services: No Alcohol intake: never Patient Tobacco Use Status: Never used Tobacco e-Cigarette/Vaping Use: Never Used Second Hand Smoke Exposure: No Use of substances other than those prescribed or required for medical reasons: No Advance Directives: Yes Advance Directives on File: Yes Advance Directives Date on File: 06/05/21 service: No Current occupational status: retired Physical Exam Vital Signs: Vital Signs: Last Vital Signs Temp 97.9 F 06/18/21 00:04 Pulse 90 06/18/21 00:04 Resp 20 06/18/21 00:04 BP 109/73 06/18/21 00:04 Pulse Ox 96 06/18/21 00:04 BMI result Body Mass Index 43.5 Appearance: Alert. Oriented X3. No acute distress. Obese Eyes: No pallor/ icterus ENT: Pharynx normal. Oral Mucosa moist Neck: Normal inspection. Neck supple. CVS: Irregular regular tachycardia Pulses normal. Respiratory: No respiratory distress. Equal air entry bilateral, no wheezing/rales/rhonchi Abdomen: Soft and nontender. Bowel sounds are present, no mass palpable, no CVA tenderness ,colostomy bag in place Skin: Skin warm and dry. Normal skin color. Normal skin turgor. Extremities: No lower extremity edema. No calf tenderness Neuro: Oriented X 3. No motor deficit. No sensory deficit.No cerebellar signs , cranial nerves II-XII intact MDM - Arrhythmia/Palpitations MDM Narrative Medical decision making narrative: Patient with AFib with fast ventricular rate noticed to have left lower lobe pneumonia with history of cough for few days has leukocytosis of 20,000 lactic acid was elevated 2.1 improved after IV hydration antibiotics given to 1.8 patient had transient hypotension secondary to AFib responded to IV fluids and heart rate control patient is not in septic shock. Patient receive IV fluids and IV antibiotics patient her troponin was high with no delta likely from demand ischemia no acute EKG changes patient already on Coumadin will continue same patient also has WAN fluids were given 30 mL/kilogram body weight according to ideal body weight patient's heart rate improved with IV Cardizem Medical Records Attestation: I reviewed the patient's medical records. Lab Data Attestation: I reviewed the patient's lab results. Result diagrams: 06/17/21 17:11 06/17/21 17:11 Labs: Lab Results 06/17/21 06/17/21 06/17/21 Range/Units 16:59 17:11 17:11 WBC 20.1 H (4.8-10.8) X10*3/uL RBC 5.68 D (4.60-5.80) X10*6/uL Hgb 14.5 (14.0-18.0) g/dl Hct 48.5 (42.0-52.0) % MCV 85.4 (80.0-98.0) fL MCH 25.5 L (27.0-33.0) pg MCHC 29.9 L (31.0-36.0) g/dl RDW 16.3 H (11.0-16.0) % Plt Count 331 D (160-400) X10*3/uL MPV 10.4 (9.4-12.4) fL Immature Gran % (Auto) 1.0 H (0.0-0.4) % Neut % (Auto) 88.4 H (45-73) % Lymph % (Auto) 5.0 L (20-40) % [place] % (Auto) 5.5 (2-11) % Eos % (Auto) 0.0 (0-4) % Baso % (Auto) 0.1 (0-2) % Lymph # (Auto) 1.0 L (1.2-4.9) X10*3/uL [place] # (Auto) 1.1 (0.1-1.2) X10*3/uL Eos # (Auto) 0.0 (0.0-0.4) X10*3/uL Baso # (Auto) 0.0 (0.0-0.2) X10*3/uL Abs Immat Gran (auto) 0.20 H (0.00-0.03) X10*3/uL Absolute Neuts (auto) 17.7 H (2.0-8.3) x10*3/uL Absolute Nucleated RBC 0.000 (0.0-0.012) X10*3/uL Nucleated RBC % (auto) 0.0 (0.0-0.2) /100WBC PT 21.1 H (9.9-13.0) SEC INR 1.8 H (0.9-1.1) APTT 37.4 (24.1-38.0) SEC Sodium (135-145) mmol/L Potassium (3.3-5.1) mmol/L Chloride (96-108) mmol/L Carbon Dioxide (22-29) mmol/L Anion Gap (12-20) BUN (9-16) mg/dL Creatinine (0.5-1.4) mg/dL Estim Creat Clear Calc Estimated GFR POC Glucose 149 H (60-115) mg/dL Random Glucose (60-115) mg/dL Lactic Acid (0.5-2.0) mmol/L Calcium (8.4-10.2) mg/dL Magnesium (1.6-2.6) mg/dL Total Bilirubin (0.0-1.0) mg/dL AST (5-37) U/L ALT (0-40) U/L Alkaline Phosphatase (39-117) U/L Troponin I High Sens (<3.5-35.0) ng/L B-Natriuretic Peptide (<100) pg/mL Total Protein (6.5-8.0) g/dL Albumin (3.5-5.0) g/dL TSH (0.32-4.0) uIU/mL COVID-19 (LALITHA) (Negative) COVID-19 Clin Com 06/17/21 06/17/21 06/17/21 Range/Units 17:11 17:11 17:11 WBC (4.8-10.8) X10*3/uL RBC (4.60-5.80) X10*6/uL Hgb (14.0-18.0) g/dl Hct (42.0-52.0) % MCV (80.0-98.0) fL MCH (27.0-33.0) pg MCHC (31.0-36.0) g/dl RDW (11.0-16.0) % Plt Count (160-400) X10*3/uL MPV (9.4-12.4) fL Immature Gran % (Auto) (0.0-0.4) % Neut % (Auto) (45-73) % Lymph % (Auto) (20-40) % [place] % (Auto) (2-11) % Eos % (Auto) (0-4) % Baso % (Auto) (0-2) % Lymph # (Auto) (1.2-4.9) X10*3/uL [place] # (Auto) (0.1-1.2) X10*3/uL Eos # (Auto) (0.0-0.4) X10*3/uL Baso # (Auto) (0.0-0.2) X10*3/uL Abs Immat Gran (auto) (0.00-0.03) X10*3/uL Absolute Neuts (auto) (2.0-8.3) x10*3/uL Absolute Nucleated RBC (0.0-0.012) X10*3/uL Nucleated RBC % (auto) (0.0-0.2) /100WBC PT (9.9-13.0) SEC INR (0.9-1.1) APTT (24.1-38.0) SEC Sodium 136 (135-145) mmol/L Potassium 4.5 (3.3-5.1) mmol/L Chloride 102 (96-108) mmol/L Carbon Dioxide 21 L (22-29) mmol/L Anion Gap 18 (12-20) BUN 13 (9-16) mg/dL Creatinine 1.75 H (0.5-1.4) mg/dL Estim Creat Clear Calc 56.1 Estimated GFR 39 POC Glucose (60-115) mg/dL Random Glucose 157 H D (60-115) mg/dL Lactic Acid (0.5-2.0) mmol/L Calcium 8.6 (8.4-10.2) mg/dL Magnesium 2.3 (1.6-2.6) mg/dL Total Bilirubin 1.0 (0.0-1.0) mg/dL AST 22 (5-37) U/L ALT 14 (0-40) U/L Alkaline Phosphatase 101 (39-117) U/L Troponin I High Sens 30.0 D (<3.5-35.0) ng/L B-Natriuretic Peptide 38 (<100) pg/mL Total Protein 7.0 (6.5-8.0) g/dL Albumin 3.4 L (3.5-5.0) g/dL TSH 1.78 (0.32-4.0) uIU/mL COVID-19 (LALITHA) Negative (Negative) COVID-19 Clin Com See Note 06/17/21 06/17/21 Range/Units 19:13 21:37 WBC (4.8-10.8) X10*3/uL RBC (4.60-5.80) X10*6/uL Hgb (14.0-18.0) g/dl Hct (42.0-52.0) % MCV (80.0-98.0) fL MCH (27.0-33.0) pg MCHC (31.0-36.0) g/dl RDW (11.0-16.0) % Plt Count (160-400) X10*3/uL MPV (9.4-12.4) fL Immature Gran % (Auto) (0.0-0.4) % Neut % (Auto) (45-73) % Lymph % (Auto) (20-40) % [place] % (Auto) (2-11) % Eos % (Auto) (0-4) % Baso % (Auto) (0-2) % Lymph # (Auto) (1.2-4.9) X10*3/uL [place] # (Auto) (0.1-1.2) X10*3/uL Eos # (Auto) (0.0-0.4) X10*3/uL Baso # (Auto) (0.0-0.2) X10*3/uL Abs Immat Gran (auto) (0.00-0.03) X10*3/uL Absolute Neuts (auto) (2.0-8.3) x10*3/uL Absolute Nucleated RBC (0.0-0.012) X10*3/uL Nucleated RBC % (auto) (0.0-0.2) /100WBC PT (9.9-13.0) SEC INR (0.9-1.1) APTT (24.1-38.0) SEC Sodium (135-145) mmol/L Potassium (3.3-5.1) mmol/L Chloride (96-108) mmol/L Carbon Dioxide (22-29) mmol/L Anion Gap (12-20) BUN (9-16) mg/dL Creatinine (0.5-1.4) mg/dL Estim Creat Clear Calc Estimated GFR POC Glucose (60-115) mg/dL Random Glucose (60-115) mg/dL Lactic Acid 2.1 H* (0.5-2.0) mmol/L Calcium (8.4-10.2) mg/dL Magnesium (1.6-2.6) mg/dL Total Bilirubin (0.0-1.0) mg/dL AST (5-37) U/L ALT (0-40) U/L Alkaline Phosphatase (39-117) U/L Troponin I High Sens 90.0 H D (<3.5-35.0) ng/L B-Natriuretic Peptide (<100) pg/mL Total Protein (6.5-8.0) g/dL Albumin (3.5-5.0) g/dL TSH (0.32-4.0) uIU/mL COVID-19 (LALITHA) (Negative) COVID-19 Clin Com Critical Care Time Critical Care Time Critical Care Time: Yes Total Critical Care Time: 65 Attestation: I spent 65 minutes of critical care, with interventions, assessments, speaking to patient, consultants, and family. Discharge Plan Discharge Clinical Impression: Atrial fibrillation with rapid ventricular response, Left lower lobe pneumonia, Non-STEMI (non-ST elevated myocardial infarction), Acute kidney failure Patient Disposition: Admitted As Inpatient
[2021-06-17 17:19] LABS: MANUAL DIFF FLAG NO
[2021-06-17 17:20] LABS: Basophils Percent Auto 0.1 % (0-2); Hematocrit 48.5 % (42.0-52.0); Hemoglobin 14.5 g/dl (14.0-18.0); Mean Corpuscular HGB Conc 29.9 g/dl (31.0-36.0); Mean Corpuscular Hemoglobin 25.5 pg (27.0-33.0); Mean Corpuscular Volume 85.4 fL (80.0-98.0); Mean Platelet Volume 10.4 fL (9.4-12.4); Monocytes Absolute Auto 1.1 X10*3/uL (0.1-1.2); Monocytes Percent Auto 5.5 % (2-11); Neutrophils Absolute Auto 17.7 x10*3/uL (2.0-8.3); Neutrophils Percent Auto 88.4 % (45-73); Platelet Count 331 X10*3/uL (160-400); Red Blood Count 5.68 X10*6/uL (4.60-5.80); Red Cell Distribution Width 16.3 % (11.0-16.0); White Blood Count 20.1 X10*3/uL (4.8-10.8)
[2021-06-17] MEDS: dilTIAZem HCL 125 MG in 0.9 % Sodium Chloride 100 ML 10 MG IVCONT (17:26)
[2021-06-17 17:27] LABS: INTERNATIONAL NORM RATIO 1.8 (0.9-1.1); Prothrombin Time 21.1 SEC (9.9-13.0)
[2021-06-17] MEDS: 0.9 % Sodium Chloride 1,000 ML 999 ML IV ×2 (17:27→19:59)
[2021-06-17 17:30] LABS: Partial Thromboplastin Time 37.4 SEC (24.1-38.0)
[2021-06-17 17:37] LABS: COVID-19 Test Negative (Negative)
[2021-06-17 17:42] LABS: B Type Natriuretic Peptide 38 pg/mL (<100)
[2021-06-17 17:45] LABS: Alanine Aminotransferase 14 U/L (0-40); Albumin Level 3.4 g/dL (3.5-5.0); Alkaline Phosphatase 101 U/L (39-117); Anion Gap 18 (12-20); Aspartate Amino Transferase 22 U/L (5-37); Blood Urea Nitrogen 13 mg/dL (9-16); Calcium 8.6 mg/dL (8.4-10.2); Carbon Dioxide 21 mmol/L (22-29); Chloride 102 mmol/L (96-108); Creatinine Clr Calc Pharmacy 56.1; Estimated Glomerular Filt Rate 39; Glucose Random 157 mg/dL (60-115); Magnesium 2.3 mg/dL (1.6-2.6); Potassium 4.5 mmol/L (3.3-5.1); Sodium 136 mmol/L (135-145)
[2021-06-17 18:07] LABS: Thyroid Stimulating Hormone 1.78 uIU/mL (0.32-4.0)
[2021-06-17] MEDS: Albuterol/Iprat 2.5/0.5MG 3 ML AMPUL.NEB INHALE (19:19)
[2021-06-17] MEDS: Acetaminophen 325 MG TABLET 650 MG PO (19:21)
[2021-06-17] MEDS: cefTRIAXone sodium 1 GM in 0.9 % Sodium Chloride 50 ML IV (19:24)
[2021-06-17 19:35] LABS: Lactic Acid 2.1 mmol/L (0.5-2.0)
[2021-06-17] MEDS: Doxycycline Hyclate 100 MG in 0.9 % Sodium Chloride 250 ML 166.67 MG IV (19:50)
--- NOTE | 2021-06-17 19:56 | PC.NURSE ---
BP 84/46 pt remains asymptomatic, denies dizziness or lightheadedness. MD called to bedside. Per MD, diltiazem drip paused at this time
[2021-06-17 21:20] LABS: Reflex Lactate? Lactic Acid Added
--- NOTE | 2021-06-17 22:04 | ECG_ITS ---
Test Reason : REPEAT EKG Blood Pressure : / mmHG Vent. Rate : 090 BPM Atrial Rate : 000 BPM P-R Int : 000 ms QRS Dur : 090 ms QT Int : 384 ms P-R-T Axes : 000 -10 006 degrees QTc Int : 469 ms Atrial fibrillation Low voltage QRS Abnormal ECG When compared with ECG of 17-JUN-2021 16:52, No significant change was found Referred By: Max Narayanan Electronically Signed By:Shaggy Tejada
--- NOTE | 2021-06-17 23:02 | PM.IMHP ---
History of Present Illness Date of Service: 06/17/21 Chief Complaint: fall this is a 66-year-old male with past medical history of persistent AFib, anemia, asthma, Crohn's disease, history of empyema, FABIOLA presents to the hospital with complaints of fall. Patient was going to the bathroom, he slipped, he fell on his knees without losing consciousness or injuring his head. He reports no palpitations, and no chest pain at the time of the incident. Patient reports that he fell onto his knee, and had difficulty getting up due to weakness as well as slippery floors and therefore EMS called. On arrival of EMS patient's heart rate was found to be in the 180s. He received 5 mg of metoprolol IV x2, With no significant improvement in heart rate. Once patient arrived at the ED, he was started on Cardizem drip with heart rate improving. Of note patient was recently discharged from the hospital on 06/09 after workup showed possible cholecystitis, patient was not a candidate for surgical intervention and was treated conservatively with antibiotics. Other causes of infection or also ruled out, and patient was discharged on Augmentin as well as azithromycin. at this time patient denies having any headache, change in vision, no chest pain, no palpitations, he does report worsening shortness of breath on exertion, reports slight cough with no sputum production, no orthopnea or PND, no abdominal pain nausea or vomiting, no diarrhea constipation, denies any fever or chills, no urinary symptoms and no lower extremity edema. On presentation to the ED patient was found to have heart rate a 160, respiratory rate of 20, BP of 112/67, satting 88% on room air. Labs are significant for WBC count of 20.1, PT of 21, INR of 1.8, lactic acid of 2.1 that trended down after IV fluids, creatinine of 1.75 with a baseline around 1, initial troponin of 30 increased to 90 and trended down to 55, chest x-ray shows when compared to exam from 06/06 there is increased density in the retrocardiac region and left lower lobe in which aspiration or developing infiltrates cannot be excluded. 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 Decreased pulses in feet Empyema lung Empyema of left pleural space Moderate persistent asthma Numbness and tingling of lower extremity FABIOLA (obstructive sleep apnea) FABIOLA on CPAP Persistent atrial fibrillation Skin macule or macular rash Vitamin D deficiency Family History Father Emphysema lung HTN (hypertension) Pulmonary fibrosis Mother HTN (hypertension) Surgical History History of appendectomy History of bowel resection History of creation of ostomy Social History Household Members: Spouse Housing: Apartment Do you presently have visiting nurse or other home services: No Alcohol intake: never Patient Tobacco Use Status: Never used Tobacco e-Cigarette/Vaping Use: Never Used Second Hand Smoke Exposure: No Use of substances other than those prescribed or required for medical reasons: No Advance Directives: Yes Advance Directives on File: Yes Advance Directives Date on File: 06/05/21 service: No Current occupational status: retired Meds Allergies Allergy/AdvReac Type Severity Reaction Status Date / Time No Known Allergies Allergy Verified 06/14/21 10:48 Active Medications: Current Medications Diltiazem HCl 125 mg/ Sodium (Chloride) 125 mls @ 0 mls/hr IVCONT .Q0M [facility]; Protocol Last Titration: 06/17/21 19:57 Dose: 0 mg/hr, 0 mls/hr Documented by: Sodium Chloride (Ns) 1,000 mls @ 999 mls/hr IV .Q1H1M ONE Stop: 06/17/21 23:39 Home Medications Medication Instructions Recorded Confirmed Last Taken Type balsalazide 750 mg capsule 2,250 mg PO TID 03/02/20 06/14/21 06/04/21 21:00 History krill oil 500 mg capsule 500 mg PO DAILY 09/11/20 06/14/21 06/04/21 12:00 History lactobacillus combination no.9 4 4,000 mmu cells PO DAILY 09/11/20 06/14/21 06/04/21 12:00 History billion cell capsule (Adult 50 Plus Probiotic) multivitamin 1 tab PO DAILY 09/11/20 06/14/21 06/04/21 12:00 History benralizumab 30 mg/mL subcutaneous 30 mg SUBCUT Q8W 06/05/21 06/14/21 Unknown History syringe (Fasenra) cholecalciferol (vitamin D3) 25 25 mcg PO DAILY 06/05/21 06/14/21 06/04/21 History mcg (1,000 unit) tablet metoprolol tartrate 25 mg tablet 25 tab PO BID@1200,2100 06/05/21 06/14/21 06/04/21 History warfarin 5 mg tablet 2.5 mg PO SUTUWEFRSA 06/05/21 06/14/21 06/04/21 History warfarin 5 mg tablet 5 mg PO MOTH 06/05/21 06/14/21 06/03/21 History prednisone 50 mg tablet 50 mg PO DAILY 06/14/21 06/14/21 Unknown History Physical Exam Vital Signs and Narrative: Vital Signs: Last Vital Signs Temp 98.1 F 06/17/21 21:18 Pulse 89 06/17/21 22:07 Resp 20 06/17/21 22:07 BP 100/68 06/17/21 22:07 Pulse Ox 98 06/17/21 22:07 BMI result Body Mass Index 43.5 Const: Other: Patient is alert alert and oriented but slow to respond, he appears ill, as well as dehydrated General: cooperative and no acute distress Orientation/consciousness: patient oriented x3 Eyes: General: appearance normal, both eyes and all related structures Pupils: Equal, round and reactive pupils present Resp: Effort & Inspection: normal respiratory effort Auscultation: clear to auscultation bilaterally Cardio: Other: tachycardic with a heart rate in the 110s, irregular rhythm GI: Palpation (GI): Soft to palpation Auscultation: normal bowel sounds Skin: General skin exam: no rashes or lesions noted Neuro: General: patient oriented x3 Cranial nerves: Yes Equal, round and reactive pupils present Cognition (Neuro): normal cognition Extrem: General: Yes normal to inspection and Yes no pedal edema Results Labs CBC and Chem 7: 06/17/21 17:11 06/17/21 17:11 Labs: Laboratory Results - last 24 hr 06/17/21 06/17/2106/17/22 16:59 17:11 17:11 MCV 85.4 MCH 25.5 L MCHC 29.9 L RDW 16.3 H Plt Count 331 D MPV 10.4 Immature Gran % (Auto) 1.0 H Neut % (Auto) 88.4 H Lymph % (Auto) 5.0 L [place] % (Auto) 5.5 Eos % (Auto) 0.0 Baso % (Auto) 0.1 Lymph # (Auto) 1.0 L [place] # (Auto) 1.1 Eos # (Auto) 0.0 Baso # (Auto) 0.0 Abs Immat Gran (auto) 0.20 H Absolute Neuts (auto) 17.7 H Absolute Nucleated RBC 0.000 Nucleated RBC % (auto) 0.0 PT 21.1 H INR 1.8 H APTT 37.4 Anion Gap Creatinine Estim Creat Clear Calc Estimated GFR POC Glucose 149 H Random Glucose Lactic Acid Calcium Magnesium Total Bilirubin AST ALT Alkaline Phosphatase B-Natriuretic Peptide Total Protein Albumin TSH COVID-19 (LALITHA) [employer] 06/17/21 06/17/21 06/17/21 17:11 17:11 17:11 MCV MCH MCHC RDW Plt Count MPV Immature Gran % (Auto) Neut % (Auto) Lymph % (Auto) [place] % (Auto) Eos % (Auto) Baso % (Auto) Lymph # (Auto) [place] # (Auto) Eos # (Auto) Baso # (Auto) Abs Immat Gran (auto) Absolute Neuts (auto) Absolute Nucleated RBC Nucleated RBC % (auto) PT INR APTT Anion Gap 18 Creatinine 1.75 H Estim Creat Clear Calc 56.1 Estimated GFR 39 POC Glucose Random Glucose 157 H D Lactic Acid Calcium 8.6 Magnesium 2.3 Total Bilirubin 1.0 AST 22 ALT 14 Alkaline Phosphatase 101 B-Natriuretic Peptide 38 Total Protein 7.0 Albumin 3.4 L TSH 1.78 COVID-19 (LALITHA) Negative COVID-[employer] See Note 06/17/21 19:13 MCV MCH MCHC RDW Plt Count MPV Immature Gran % (Auto) Neut % (Auto) Lymph % (Auto) [place] % (Auto) Eos % (Auto) Baso % (Auto) Lymph # (Auto) [place] # (Auto) Eos # (Auto) Baso # (Auto) Abs Immat Gran (auto) Absolute Neuts (auto) Absolute Nucleated RBC Nucleated RBC % (auto) PT INR APTT Anion Gap Creatinine Estim Creat Clear Calc Estimated GFR POC Glucose Random Glucose Lactic Acid 2.1 H* Calcium Magnesium Total Bilirubin AST ALT Alkaline Phosphatase B-Natriuretic Peptide Total Protein Albumin TSH COVID-19 (LALITHA) COVID-19 Clin Com Imaging Radiologist's Impressions: Impressions Chest X-Ray 06/17/21 17:24 IMPRESSION: When compared to the examination from 06/06/2021, there is increased density in the retrocardiac region and left lower lobe in which aspiration or developing infiltrates cannot be excluded. This could also be potentially artifactual and related with slight patient's rotation. Clinical correlation is needed, and a follow-up examination is recommended to assure adequate resolution. Assessment and Plan (1) Sepsis: Status: Acute (2) Atrial fibrillation with rapid ventricular response: Status: Acute (3) Left lower lobe pneumonia: Status: Acute (4) Acute kidney failure: Status: Acute (5) Elevated troponin: Status: Acute (6) Lactic acidosis: Status: Acute (7) Acute respiratory failure with hypoxia: Status: Acute Plan 66-year-old male with various previous medical history who presents to the hospital with complaints of a fall found to have AFib with RVR among other findings including sepsis, WAN, elevated troponin as well as pneumonia # sepsis - source likely pneumonia - UA pending - patient tachycardic, has increased leukocytosis, lactic acidosis, afebrile - will treat with IV antibiotics for the above findings of pneumonia - follow cultures - IV fluids # AFib with RVR - likely multifactorial secondary to sepsis as well as dehydration - on Cardizem drip- will continue drip with a heart rate goal of less than 110 - continue warfarin for anticoagulation # hospital-acquired pneumonia - patient has worsening infiltrate as mentioned in chest x-ray - patient also found to be hypoxic on room air - Given recent hospitalization will treat with broad-spectrum IV antibiotics for hospital-acquired pneumonia - follow cultures - will also consult speech is there was concern for possible aspiration pneumonia # acute hypoxic respiratory failure - found to have oxygen 88% on room air, likely secondary to pneumonia - continue oxygen supplement and titrate down as tolerated # elevated troponin - likely type to ski Lilian in the setting of AFib with RVR as well as infection - trended down - monitor # WAN - likely prerenal in the setting of acute infection - IV fluids, - Continue to monitor BMP # lactic acidosis - secondary to acute sepsis well as dehydration - trended down with IV fluids, will continue IV fluid resuscitation # recent history of cholecystitis - patient has no abdominal pain, guarding or rebound, no evidence of infection the gallbladder - patient will be on IV antibiotics for above reasons - monitor for any symptoms # Crohn's disease - stable - will continue home medications DVT prophylaxis: Warfarin given hypoxia, WAN, pneumonia as well as AFib with RVR, patient will require inpatient evaluation as well as treatment Quality Stroke Does the patient have a stroke diagnosis?: No VTE Prior VTE?: No VTE Risk Level:: Medical - moderate - high VTE Device Contraindication: Treatment Not Indicated VTE Drug Contraindication: N/A - Med Ordered
[2021-06-18] VITALS (11 sets, daily range): BP systolic 99–140; BP diastolic 53–73; PULSE 90–123; RESP 15–25; TEMP 36.3–37.7; O2SAT 95–98
[2021-06-18] MEDS: Piperacillin Sodium/Tazobactam 3.375 GM in 0.9 % Sodium Chloride 50 ML IV ×5 (00:34→22:33)
[2021-06-18] MEDS: 0.9 % Sodium Chloride 1,000 ML 999 ML IV (00:36)
[2021-06-18] MEDS: vancomycin HCL 1,500 MG in 0.9 % Sodium Chloride 500 ML 333.33 MG IV (00:46)
[2021-06-18 00:51] LABS: ~Lactic Acid-LAB USE ONLY 1.8 mmol/L (0.5-2.0)
[2021-06-18 00:59] LABS: Troponin-I High Sensitivity 55.5 ng/L (<3.5-35.0)
[2021-06-18] MEDS: Lactated Ringers 1,000 ML 100 ML IVCONT ×3 (02:29→22:34)
[2021-06-18 06:52] LABS: MANUAL DIFF FLAG NO
[2021-06-18 06:54] LABS: Basophils Percent Auto 0.2 % (0-2); Hematocrit 44.7 % (42.0-52.0); Hemoglobin 13.1 g/dl (14.0-18.0); Imm Gran Abs Auto 0.08 X10*3/uL (0.00-0.03); Imm Gran Pct Auto 0.7 % (0.0-0.4); Lymphocytes Absolute Auto 1.1 X10*3/uL (1.2-4.9); Lymphocytes Percent Auto 9.1 % (20-40); Mean Corpuscular HGB Conc 29.3 g/dl (31.0-36.0); Mean Corpuscular Hemoglobin 25.7 pg (27.0-33.0); Mean Corpuscular Volume 87.8 fL (80.0-98.0); Mean Platelet Volume 10.6 fL (9.4-12.4); Monocytes Percent Auto 8.5 % (2-11); Neutrophils Percent Auto 81.5 % (45-73); Platelet Count 270 X10*3/uL (160-400); Red Blood Count 5.09 X10*6/uL (4.60-5.80); Red Cell Distribution Width 16.5 % (11.0-16.0); White Blood Count 12.3 X10*3/uL (4.8-10.8)
[2021-06-18 07:19] LABS: Anion Gap 15 (12-20); Blood Urea Nitrogen 14 mg/dL (9-16); Calcium 7.8 mg/dL (8.4-10.2); Carbon Dioxide 22 mmol/L (22-29); Chloride 108 mmol/L (96-108); Creatinine Clr Calc Pharmacy 65.9; Estimated Glomerular Filt Rate 47; Glucose Random 104 mg/dL (60-115); Potassium 4.3 mmol/L (3.3-5.1); Sodium 141 mmol/L (135-145)
--- NOTE | 2021-06-18 08:42 | PHA.MEDREC ---
Pharmacy Consult ? Medication Reconciliation Pharmacy has reivewed the medication reconciliation completed by Jose. There are no remarkable issues for provider's attention. Tiffanie Martinez, PharmD
--- NOTE | 2021-06-18 08:54 | PHA.PROG ---
Admission Date/Time: June 17, 2021 23:00 Indication: Sepsis - pneumonia Weight in k kg Adjusted body weight in K.04 kg [place] body weight in K.4 kg Obesity Dosing Indication % IBW: 190% Serum Creatinine - Last 168 Hours 06/17/21 06/18/21 17:11 06:47 Creatinine 1.75 H 1.49 H Estimated CrCl and GFR - Last 168 Hours 06/17/21 06/18/21 17:11 06:47 Estim Creat Clear Calc 56.1 65.9 Estimated GFR 39 47 Vancomycin Loading Dose: 1500 mg (11 mg/kg) Current Vancomycin Dosing Regimen: 1250 mg Q24H Date and Time for next Vancomycin Level to be drawn: 06/20 @ 2100 Pharmacist Comments on Vancomycin Plan: Patient is morbidly obese and has WAN which will require careful monitoring First dose given in the ED 06/18 @ 0046. Will start maintenance dose vancomycin 1250 mg Q24H 06/18 @ 2300. Expected AUC 490 with a trough of 12.7. Maintenance dose will be given 2 hours early so that pharmacy will be able to monitor trough. Patient did not recieve a full loading dose so this will also help patient get the therapuetic level quicker. Pharmacy will monitor renal function daily. SCr has improved since last night. Tiffanie Martinez PharmD Vancomycin dosing will take advantage of [employer] as a clinical decision support tool that uses Bayesian modeling to calculate individual patient's pharmacokinetic parameters and forecast the patient's drug concentration time course with the target goal AUC 24 range of 400 - 600 mg/L/hr.
--- NOTE | 2021-06-18 09:09 | MHC.CM.PN ---
PT REPORTS HE LIVES WITH HIS AND IS FULLY INDEPENDENT WITH CARE PT REPORTS HE USES A CPAP FOR DME AND HAS NO HOME SERVICES PT HAS A HCP ON FILE AND CONFIRMS HIS PCP IS JIGAR TANNER PT REPORTS HE IS VACCINATED WITH PFIZER X 3 FOR COVID-19 CURRENT DC PLAN IS HOME WITH NO SERVICES PT WILL ARRANGE TRANSPORT
[2021-06-18] MEDS: 0.9 % Sodium Chloride Flush 3 ML SYRINGE IVFLUSH ×2 (09:26→20:12)
--- NOTE | 2021-06-18 09:51 | PC.NURSE ---
Previous lactated ringers still running
[2021-06-18] MEDS: dilTIAZem HCL 125 MG in 0.9 % Sodium Chloride 100 ML IVCONT ×2 (10:43→23:57)
--- NOTE | 2021-06-18 10:50 | PC.NURSE ---
Diltiazem restarted at 5 mg/mL, 5 mL/hr per verbal from Liz WU
--- NOTE | 2021-06-18 11:42 | MHC.SL.SWA ---
Speech Pathologist Impression: Risk of Aspiration Due to: History of Pneumonia Dysphasia Diet Status: Liquid Consistency and Strategies for Safe Swallow: Liquid Intake Recommendation: Thin Liquid Intake Strategies: Unrestricted Solid Food Consistency: Dietary Recommendations: Regular Additional Modifications to Solid Foods: Oral Medication Intake: Whole with Liquid Please contact the pharmacy regarding appropriate crushable or liquid drug formulations that are available whenever modified delivery is recommended. Compensatory Strategies and Precautions to be Taken for Safe Swallow: Sitting Upright (90 deg) Liquids from Cup Small Bites and Sips Alternate Liquids/Solids Supervision While Eating and Drinking for Safe Swallow: None Needed Foods to Avoid: Acidic or spicy foods Swallowing Recommended Treatments: Recommendation for Speech: NA:Typical Evaluation Comment: Pt presented w/ all phases of swallow WNL on all liquid and solid food presentations. No clinical s/s aspiration on liquids or solids. Pt reports episodes of reflux at night. Recommend keep head of bed at min. 30 Degrees, and remain at 90 Degrees for at least 30 minutes after each meal. Eval results and recommendations communicated by secure text w/ ANIME DESIGNER, Campus Wellness Coordinator. Recommend D/C from Speech at this time. Frequency/Duration: n/a Date Range for Service Req: Timeline to reassess: Emotionally Impaired Teacher Clinican/Clinical Fellow: No Supervisory Statement: I have reviewed and agree with the student/clinical fellow's documentation: N/A Speech Language Pathologist: Jenny Perez M.A., CCC-BLOWER INSULATOR
--- NOTE | 2021-06-18 11:59 | PC.NURSE ---
obtained report from Axel- patient a&ox3, cardizem drip running at 5mg/hr-prior RN was told by hospitalist to restart cardizem at 5 mghr. pt denies pain/discomfort, hr running between 105-119, pt has 2L O2 nc- pt states he is not home O2 dependent, iv antibiotics running per order, lungs clear/dim, call larson within reach will continue to monitor.
--- NOTE | 2021-06-18 13:45 | HO.PM.IMPN ---
Subjective Subjective Date of Service: 06/18/21 Review of Systems Follow up afib rvr chronic sob no pain Physical Exam Vital Signs: Vital Signs: Last Vital Signs Temp 99.2 F 06/18/21 08:56 Pulse 120 H 06/18/21 10:44 Resp 19 06/18/21 08:56 BP 121/69 06/18/21 10:44 Pulse Ox 96 06/18/21 08:56 BMI result Body Mass Index 43.5 Appearing in no acute distress lung sounds clear heart regular rate rhythm, clear S1, S2 positive bowel sounds, abdomen is soft, nontender neuro patient is alert x3, no focal deficits Objective Data Active Medications Acetaminophen (Acetaminophen 325 Mg Tablet) 650 mg PO Q6H PRN PRN Reason: Pain, Mild (Pain Scale 1-3) Docusate Sodium (Docusate Sodium 100 Mg Capsule) 100 mg PO DAILY PRN PRN Reason: Constipation Diltiazem HCl 125 mg/ Sodium (Chloride) 125 mls @ 0 mls/hr IVCONT .Q0M [facility]; Protocol Last Admin: 06/18/21 10:43 Dose: 5 mg/hr, 5 mls/hr Documented by: SHARLENE Piperacillin Sod/Tazobactam (Sod 3.375 gm/ Sodium Chloride) 50 mls @ 100 mls/hr IV Q6H [facility] Last Infusion: 06/18/21 12:24 Dose: 0 mls/hr Documented by: LÁZARO Lactated Ringer's (Lr) 1,000 mls @ 100 mls/hr IVCONT .Q10H [facility] Last Admin: 06/18/21 12:47 Dose: 100 mls/hr Documented by: LÁZARO Vancomycin HCl 1,250 mg/ (Sodium Chloride) 250 mls @ 166.667 mls/hr IV Q24H [facility] Ondansetron HCl (Ondansetron Hcl 4 Mg/2 Ml Vial) 4 mg IVPUSH Q8H PRN PRN Reason: Nausea and Vomiting Pharmacy Consult (Consult Rx Vancomycin Dosing) 1 each MISCELLANE DAILY PRN PRN Reason: Consult order Sodium Chloride (0.9 % Sodium Chloride Flush 3 Ml Syringe) 3 ml IVFLUSH QSHIFT [facility] Last Admin: 06/18/21 09:26 Dose: 3 ml Documented by: SHARLENE Labs CBC & Chem 7: 06/18/21 06:47 06/18/21 06:47 Labs: Laboratory Results - last 24 hr 06/17/21 06/17/21 06/17/21 16:59 17:11 17:11 MCV 85.4 MCH 25.5 L MCHC 29.9 L RDW 16.3 H Plt Count 331 D MPV 10.4 Immature Gran % (Auto) 1.0 H Neut % (Auto) 88.4 H Lymph % (Auto) 5.0 L Amite % (Auto) 5.5 Eos % (Auto) 0.0 Baso % (Auto) 0.1 Lymph # (Auto) 1.0 L [place] # (Auto) 1.1 Eos # (Auto) 0.0 Baso # (Auto) 0.0 Abs Immat Gran (auto) 0.20 H Absolute Neuts (auto) 17.7 H Absolute Nucleated RBC 0.000 Nucleated RBC % (auto) 0.0 PT 21.1 H INR 1.8 H APTT 37.4 Anion Gap Estim Creat Clear Calc Estimated GFR POC Glucose 149 H Random Glucose Lactic Acid Lactic Acid F/U @ 2Hr Calcium Magnesium Total Bilirubin AST ALT Alkaline Phosphatase B-Natriuretic Peptide Total Protein Albumin TSH COVID-19 (LALITHA) COVID-Appointedd Com 06/17/21 06/17/21 06/17/21 17:11 17:11 17:11 MCV MCH MCHC RDW Plt Count MPV Immature Gran % (Auto) Neut % (Auto) Lymph % (Auto) Amite % (Auto) Eos % (Auto) Baso % (Auto) Lymph # (Auto) Amite # (Auto) Eos # (Auto) Baso # (Auto) Abs Immat Gran (auto) Absolute Neuts (auto) Absolute Nucleated RBC Nucleated RBC % (auto) PT INR APTT Anion Gap 18 Estim Creat Clear Calc 56.1 Estimated GFR 39 POC Glucose Random Glucose 157 H D Lactic Acid Lactic Acid F/U @ 2Hr Calcium 8.6 Magnesium 2.3 Total Bilirubin 1.0 AST 22 ALT 14 Alkaline Phosphatase 101 B-Natriuretic Peptide 38 Total Protein 7.0 Albumin 3.4 L TSH 1.78 COVID-19 (LALITHA) Negative COVID-19 [email or web address] Com See Note 06/17/21 06/18/21 06/18/21 19:13 00:30 06:47 MCV 87.8 MCH 25.7 L MCHC 29.3 L RDW 16.5 H Plt Count 270 MPV 10.6 Immature Gran % (Auto) 0.7 H Neut % (Auto) 81.5 H Lymph % (Auto) 9.1 L Amite % (Auto) 8.5 Eos % (Auto) 0.0 Baso % (Auto) 0.2 Lymph # (Auto) 1.1 L [place] # (Auto) 1.0 Eos # (Auto) 0.0 Baso # (Auto) 0.0 Abs Immat Gran (auto) 0.08 H Absolute Neuts (auto) 10.0 H Absolute Nucleated RBC 0.000 Nucleated RBC % (auto) 0.0 PT INR APTT Anion Gap Estim Creat Clear Calc Estimated GFR POC Glucose Random Glucose Lactic Acid 2.1 H* Lactic Acid F/U @ 2Hr 1.8 Calcium Magnesium Total Bilirubin AST ALT Alkaline Phosphatase B-Natriuretic Peptide Total Protein Albumin TSH COVID-19 (LALITHA) COVID-19 [email or web address] Com 06/18/21 06:47 MCV MCH MCHC RDW Plt Count MPV Immature Gran % (Auto) Neut % (Auto) Lymph % (Auto) Amite % (Auto) Eos % (Auto) Baso % (Auto) Lymph # (Auto) Amite # (Auto) Eos # (Auto) Baso # (Auto) Abs Immat Gran (auto) Absolute Neuts (auto) Absolute Nucleated RBC Nucleated RBC % (auto) PT INR APTT Anion Gap 15 Estim Creat Clear Calc 65.9 Estimated GFR 47 POC Glucose Random Glucose 104 Lactic Acid Lactic Acid F/U @ 2Hr Calcium 7.8 L D Magnesium Total Bilirubin AST ALT Alkaline Phosphatase B-Natriuretic Peptide Total Protein Albumin TSH COVID-19 (LALITHA) COVID-19 Clin Com Assessment and Plan (1) Acute respiratory failure with hypoxia: Status: Acute Plan 66-year-old male with various? previous medical history who presents to the hospital with complaints of a fall found to have AFib with RVR among other findings including sepsis, WAN, elevated troponin as well as pneumonia sepsis source likely pneumonia UA pending patient tachycardic, has increased leukocytosis, lactic acidosis, afebrile will treat with IV antibiotics for the above findings of pneumonia follow cultures IV fluids AFib with RVR likely multifactorial secondary to sepsis as well as dehydration on Cardizem drip-? will continue drip with a heart rate goal of less than 110 continue warfarin for anticoagulation, patient would like to switch to eliquis if able acute hypoxic respiratory failure secondary to hospital-acquired pneumonia sat 88% patient has worsening infiltrate as mentioned in chest x-ray patient also found to be hypoxic on room air Given recent hospitalization will treat with broad-spectrum IV antibiotics for hospital-acquired pneumonia follow cultures will also consult speech is there was concern for possible aspiration pneumonia elevated troponin likely type 2 in the setting of AFib with RVR as well as infection trended down monitor WAN likely prerenal in the setting of acute infection IV fluids, Continue to monitor BMP lactic acidosis secondary to acute sepsis well as dehydration trended down with IV fluids, will continue IV fluid resuscitation recent history of cholecystitis patient has no abdominal pain, guarding or rebound, no evidence of infection the gallbladder patient will be on IV antibiotics for above reasons monitor for any symptoms Crohn's disease stable will continue home medications DVT prophylaxis: Warfarin Attending Dr. Dyer Patient requires continued hospitalization the patient is currently being treated with IV Cardizem for atrial fibrillation with rapid ventricular response and Hcap Quality Stroke Does the patient have a stroke diagnosis?: No VTE Prior VTE?: No VTE Risk Level:: Medical - moderate - high VTE Device Contraindication: Treatment Not Indicated VTE Drug Contraindication: N/A - Med Ordered
--- NOTE | 2021-06-18 14:51 | PC.NURSE ---
patient a&ox3, pt was uncomfortable in the stretcher, [facility] obtained hospital bed, pt transferred with assist from stretcher to bed, pt ate 100% of lunch, ivf and cardizem drip running per order, pt hr continues to be afib running from 105-117 on monitor, call larson within reach, will continue to monitor.
--- NOTE | 2021-06-18 15:08 | PC.NURSE ---
called pharmacy for missing med
[2021-06-18] MEDS: Balsalazide Disodium 750 MG CAPSULE 2250 MG PO ×2 (15:20→20:11)
[2021-06-18] MEDS: Acetaminophen 325 MG TABLET 650 MG PO ×2 (15:24→20:28)
--- NOTE | 2021-06-18 15:25 | PC.NURSE ---
pt medicated per order, pt requested tylenol for pain that occurs when he coughs 3-4/10.
--- NOTE | 2021-06-18 16:17 | PC.NURSE ---
report called to floor for pt
[2021-06-18] MEDS: Warfarin Sodium 2.5 MG TABLET PO (18:41)
[2021-06-18] MEDS: Metoprolol Tartrate 25 MG TABLET PO (20:29)
[2021-06-18] MEDS: vancomycin HCL 1,250 MG in 0.9 % Sodium Chloride 250 ML 166.67 MG IV (22:33)
[2021-06-19] VITALS (7 sets, daily range): BP systolic 101–148; BP diastolic 59–99; PULSE 95–121; RESP 15–20; TEMP 36.3–37.9; O2SAT 95–97
[2021-06-19] MEDS: Piperacillin Sodium/Tazobactam 3.375 GM in 0.9 % Sodium Chloride 50 ML IV ×3 (05:15→18:47)
--- NOTE | 2021-06-19 07:01 | MHC.CDI.CONC ---
CDI Concurrent Query Documentation Clarification: PHYSICIAN'S DOCUMENTATION REQUEST Date of Query: 06/19/21 0701 Patient Name: Gorge Dvae Admit Date: 06/17/21 Dear Doctor, A review of the medical record indicates additional documentation may be needed. Please review below and update the documentation accordingly. Clinical Indicators: Risk Factors/Clinical Indicators/Treatments Lab findings: 06/18 - calcium 7.8 L Please indicate in your progress notes if you are in agreement that the above diagnosis is valid for this patient: Hypocalcemia or other etiology of lab findings: Yes, [ ] is a valid diagnosis for this patient No, [ ] is a not a valid diagnosis for this patient Other (please specify) Unable to determine Use of terms such as suspected, likely, concern for, or probable (associated with a specific diagnosis that is being evaluated, monitored, or treated as if it exists) are acceptable and can be coded in the inpatient setting, when documented at the time of discharge. Thank you, Yesy Otoole [facility], CDIS Extension: [phone] Please use your independent medical judgment in providing your response. THIS QUERY IS PART OF THE PERMANENT MEDICAL RECORD Provider Response: Other Other Diagnosis: No
[2021-06-19 07:10] LABS: INTERNATIONAL NORM RATIO 1.7 (0.9-1.1); Prothrombin Time 19.8 SEC (9.9-13.0)
[2021-06-19 07:20] LABS: Creatinine Clr Calc Pharmacy 88.4; Estimated Glomerular Filt Rate > 60
--- NOTE | 2021-06-19 09:37 | HE.PHANOTE ---
Vancomycin Dosing Addendum Increased Vancomycin dose to 1500 mg Q24H for predicted AUC of 447 ( 1250 mg q24h subtherapeutic). Creatinine improved. Random level to be drawn tonight at 2100 before 3rd dose.
[2021-06-19] MEDS: Cholecalciferol (Vitamin D3) 25 MCG TABLET PO (10:08)
[2021-06-19] MEDS: Multivitamin TABLET 1 TAB PO (10:09)
[2021-06-19] MEDS: Balsalazide Disodium 750 MG CAPSULE 2250 MG PO ×3 (10:09→22:19)
[2021-06-19] MEDS: Furosemide 20 MG TABLET PO (10:09)
[2021-06-19] MEDS: Metoprolol Tartrate 25 MG TABLET PO ×2 (12:22→22:18)
[2021-06-19] MEDS: Lactated Ringers 1,000 ML 100 ML IVCONT (12:22)
--- NOTE | 2021-06-19 13:34 | MHC.CM.PN ---
A CALL WAS RECEIVED FROM DEBBY @ [employer]. SHE STATED THAT THE PATIENT CAN NOT RETURN HOME. DP IS INVOLVED R/T HOARDING ISSUES. HE CAN NOT GO BACK HOME. DP STR,PENDING A PT EVAL VS PLACEMENT. CALL DEBBY PRIOR TO DISCHARGE, REPORT DISPO.
--- NOTE | 2021-06-19 13:39 | P.PNIM_ITS ---
Subjective Subjective Date of Service: 06/19/21 Review of Systems Follow up afib rvr, PNA Chronic sob, no chest pain OOB ambulating Dry cough Physical Exam Vital Signs: Vital Signs: Last Vital Signs Temp 99.3 F 06/19/21 11:09 Pulse 106 H 06/19/21 11:09 Resp 18 06/19/21 11:09 BP 101/74 06/19/21 11:09 Pulse Ox 97 06/19/21 11:09 BMI result Body Mass Index 43.5 Appearing in no acute distress lung sounds rhonchi heart regular rate rhythm, clear S1, S2 positive bowel sounds, abdomen is soft, nontender, obese neuro patient is alert x3, no focal deficits Objective Data Active Medications Acetaminophen (Acetaminophen 325 Mg Tablet) 650 mg PO Q6H PRN PRN Reason: Pain, Mild (Pain Scale 1-3) Last Admin: 06/18/21 20:28 Dose: 650 mg Documented by: ETHEL Albuterol Sulfate (Albuterol Sulfate 90 Mcg 8 Gm Inhaler) 2 puff INHALE Q4H PRN PRN Reason: shortness of breath or wheezing Balsalazide (Balsalazide Disodium 750 Mg Capsule) 2,250 mg PO TID [facility] Last Admin: 06/19/21 10:09 Dose: 2,250 mg Documented by: LEBRON Docusate Sodium (Docusate Sodium 100 Mg Capsule) 100 mg PO DAILY PRN PRN Reason: Constipation Fluticasone/Vilanterol (Fluticasone/Vilanterol 200/25 Blst.W.Dev) 1 puff INHALE RDAILY [facility] Last Admin: 06/19/21 07:24 Dose: Not Given Documented by: MANOLO Non-Admin Reason: Patient Refused Furosemide (Furosemide 20 Mg Tablet) 20 mg PO DAILY [facility]; Protocol Last Admin: 06/19/21 10:09 Dose: 20 mg Documented by: LEBRON Diltiazem HCl 125 mg/ Sodium (Chloride) 125 mls @ 0 mls/hr IVCONT .Q0M [facility]; Protocol Last Titration: 06/19/21 04:08 Dose: 0 mg/hr, 0 mls/hr Documented by: ETHEL Piperacillin Sod/Tazobactam (Sod 3.375 gm/ Sodium Chloride) 50 mls @ 100 mls/hr IV Q6H [facility] Last Infusion: 06/19/21 13:00 Dose: 0 mls/hr Documented by: LEBRON Lactated Ringer's (Lr) 1,000 mls @ 100 mls/hr IVCONT .Q10H [facility] Last Admin: 06/19/21 12:22 Dose: 100 mls/hr Documented by: LEBRON Vancomycin HCl 1,500 mg/ (Sodium Chloride) 500 mls @ 333.333 mls/hr IV Q24H [facility] Metoprolol Tartrate (Metoprolol Tartrate 25 Mg Tablet) 25 mg PO BID@1200,2100 [facility]; Protocol Last Admin: 06/19/21 12:22 Dose: 25 mg Documented by: LEBRON Multivitamins/Vitamin C (Multivitamin Tablet) 1 tab PO DAILY [facility] Last Admin: 06/19/21 10:09 Dose: 1 tab Documented by: LEBRON Ondansetron HCl (Ondansetron Hcl 4 Mg/2 Ml Vial) 4 mg IVPUSH Q8H PRN PRN Reason: Nausea and Vomiting Pharmacy Consult (Consult Rx Vancomycin Dosing) 1 each MISCELLANE DAILY PRN PRN Reason: Consult order Sodium Chloride (0.9 % Sodium Chloride Flush 3 Ml Syringe) 3 ml IVFLUSH QSHIFT [facility] Last Admin: 06/19/21 08:48 Dose: Not Given Documented by: LEBRON Non-Admin Reason: IV Running Vitamin D (Cholecalciferol (Vitamin D3) 25 Mcg Tablet) 25 mcg PO DAILY [facility] Last Admin: 06/19/21 10:08 Dose: 25 mcg Documented by: LEBRON Warfarin Sodium (Warfarin Sodium 2.5 Mg Tablet) 2.5 mg PO SuTuWeFrSa@1800 [facility] Last Admin: 06/18/21 18:41 Dose: 2.5 mg Documented by: MARITZA Warfarin Sodium (Warfarin Sodium 5 Mg Tablet) 5 mg PO MoTh@1800 [facility] Labs CBC & Chem 7: 06/18/21 06:47 06/19/21 06:36 Labs: Laboratory Results - last 24 hr 06/19/21 06/19/21 06:36 06:36 PT 19.8 H INR 1.7 H Estim Creat Clear Calc 88.4 Estimated GFR > 60 Microbiology Microbiology Results: Microbiology 06/17/21 19:13 Blood Culture - Preliminary Blood - Venous No growth after 24 hours. 06/17/21 19:13 Blood Culture - Preliminary Blood - Venous No growth after 24 hours. Assessment and Plan (1) Acute respiratory failure with hypoxia: Status: Acute Plan 66-year-old male with various? previous medical history who presents to the hospital with complaints of a fall found to have AFib with RVR among other findings including sepsis, WAN, elevated troponin as well as pneumonia AFib with RVR likely multifactorial secondary to sepsis as well as dehydration on Cardizem drip-? will continue drip with a heart rate goal of less than 110 continue warfarin for anticoagulation, patient would like to switch to eliquis if able acute hypoxic respiratory failure secondary to hospital-acquired pneumonia sat 88% Given recent hospitalization will treat with broad-spectrum IV antibiotics for hospital-acquired pneumonia follow cultures will also consult speech is there was concern for possible aspiration pneumonia Add Mucinex for dry cough sepsis. Resolved source likely pneumonia UA pending patient tachycardic, has increased leukocytosis, lactic acidosis, afebrile will treat with IV antibiotics for the above findings of pneumonia follow cultures IV fluids elevated troponin likely type 2 in the setting of AFib with RVR as well as infection trended down monitor WAN. Trending down likely prerenal in the setting of acute infection IV fluids, Continue to monitor BMP lactic acidosis secondary to acute sepsis well as dehydration trended down with IV fluids, will continue IV fluid resuscitation recent history of cholecystitis patient has no abdominal pain, guarding or rebound, no evidence of infection the gallbladder patient will be on IV antibiotics for above reasons monitor for any symptoms Crohn's disease stable will continue home medications Morbid obesity. BMI 43.6 Discussed the importance of weight management at this may be contributing to wor sening of other comorbidities DVT prophylaxis: Warfarin Attending Dr. Dyer Patient requires continued hospitalization the patient is currently being treated with IV Cardizem for atrial fibrillation with rapid ventricular response and IV antibiotics for Hcap Quality Stroke Does the patient have a stroke diagnosis?: No VTE Prior VTE?: No VTE Risk Level:: Medical - moderate - high VTE Device Contraindication: Treatment Not Indicated VTE Drug Contraindication: N/A - Med Ordered
[2021-06-19] MEDS: 0.9 % Sodium Chloride Flush 3 ML SYRINGE IVFLUSH ×2 (16:02→22:22)
[2021-06-19] MEDS: Warfarin Sodium 2.5 MG TABLET PO (18:47)
--- NOTE | 2021-06-19 19:00 | P.CONCA_ITS ---
History of Present Illness History of Present Illness Date of Service: 06/20/21 Requesting physician: Liz De Leon Chief complaint: A fib w rvr Narrative: [age] gentleman with background history of chronic atrial fibrillation, anemia, asthma, Crohn's disease, emphysema and obstructive sleep apnea who is presenting for shortness of breath. Patient said he was in the bathroom and before was wet and he lost balance. He said he lowered himself to the ground and then could not get up. The was in the room added that he was huffing and puffing and was really short of breath. This has been ongoing for some time now. He was recently the hospital with question of cholecystitis and were medically treated. In the ER was noted to be in AFib with RVR and was started on Cardizem drip. He had mildly elevated lactate lower and elevated wbc's. Chest x-ray showed increased density in the retrocardiac region at the left lower lobe. He was admitted as sepsis due to pneumonia and was started on antibiotics. He was continued on Cardizem drip for AFib. On discussing with him he is denying any chest discomfort or significant shortness of breath. Is 9 palpitations. He is on Cardizem and heart rates appear reasonably controlled. Denying any other issues at this point. Discussing with him he had been short of breath for long time. He has known emphysema. FOR[facility]LY [facility] Past Medical History Medical History A-fib Acquired deformity of toenail Anal fistula Anemia Asthma Asthma Atrial fibrillation, chronic Colostomy in place Crohn disease Current use of long-term anticoagulation Decreased pulses in feet Empyema lung Empyema of left pleural space Moderate persistent asthma Numbness and tingling of lower extremity FABIOLA (obstructive sleep apnea) FABIOLA on CPAP Persistent atrial fibrillation Skin macule or macular rash Vitamin D deficiency Family History Family History Father Emphysema lung HTN (hypertension) Pulmonary fibrosis Mother HTN (hypertension) Surgical History Surgical History History of appendectomy History of bowel resection History of creation of ostomy Social History Social History Household Members: Spouse [facility]: [facility] Do you presently have visiting nurse or other home services: No Alcohol intake: never Patient Tobacco Use Status: Never used Tobacco e-Cigarette/Vaping Use: Never Used Second Hand Smoke Exposure: No Advance Directives Date on File: 06/05/21 service: No Current occupational status: retired Meds Allergies Allergy/AdvReac Type Severity Reaction Status Date / Time No Known Allergies Allergy Verified 06/14/21 10:48 Active Medications: Current Medications Acetaminophen (Acetaminophen 325 Mg Tablet) 650 mg PO Q6H PRN PRN Reason: Pain, Mild (Pain Scale 1-3) Last Admin: 06/18/21 20:28 Dose: 650 mg Documented by: Albuterol Sulfate (Albuterol Sulfate 90 Mcg 8 Gm Inhaler) 2 puff INHALE Q4H PRN PRN Reason: shortness of breath or wheezing Balsalazide (Balsalazide Disodium 750 Mg Capsule) 2,250 mg PO TID [facility] Last Admin: 06/19/21 16:02 Dose: 2,250 mg Documented by: Docusate Sodium (Docusate Sodium 100 Mg Capsule) 100 mg PO DAILY PRN PRN Reason: Constipation Fluticasone/Vilanterol (Fluticasone/Vilanterol 200/25 Blst.W.Dev) 1 puff INHALE RDAILY [facility] Last Admin: 06/19/21 07:24 Dose: Not Given Documented by: Furosemide (Furosemide 20 Mg Tablet) 20 mg PO DAILY [facility]; Protocol Last Admin: 06/19/21 10:09 Dose: 20 mg Documented by: Guaifenesin (Guaifenesin La 600 Mg Tab.Er.12h) 600 mg PO BID [facility] Diltiazem HCl 125 mg/ Sodium (Chloride) 125 mls @ 0 mls/hr IVCONT .Q0M [facility]; Protocol Last Titration: 06/19/21 04:08 Dose: 0 mg/hr, 0 mls/hr Documented by: Piperacillin Sod/Tazobactam (Sod 3.375 gm/ Sodium Chloride) 50 mls @ 100 mls/hr IV Q6H [facility] Last Admin: 06/19/21 18:47 Dose: 100 mls/hr Documented by: Vancomycin HCl 1,500 mg/ (Sodium Chloride) 500 mls @ 333.333 mls/hr IV Q24H [facility] Metoprolol Tartrate (Metoprolol Tartrate 25 Mg Tablet) 25 mg PO BID@1200,2100 [facility]; Protocol Last Admin: 06/19/21 12:22 Dose: 25 mg Documented by: Multivitamins/Vitamin C (Multivitamin Tablet) 1 tab PO DAILY [facility] Last Admin: 06/19/21 10:09 Dose: 1 tab Documented by: Ondansetron HCl (Ondansetron Hcl 4 Mg/2 Ml Vial) 4 mg IVPUSH Q8H PRN PRN Reason: Nausea and Vomiting Pharmacy Consult (Consult Rx Vancomycin Dosing) 1 each MISCELLANE DAILY PRN PRN Reason: Consult order Sodium Chloride (0.9 % Sodium Chloride Flush 3 Ml Syringe) 3 ml IVFLUSH QSHIFT [facility] Last Admin: 06/19/21 16:02 Dose: 3 ml Documented by: Vitamin D (Cholecalciferol (Vitamin D3) 25 Mcg Tablet) 25 mcg PO DAILY [facility] Last Admin: 06/19/21 10:08 Dose: 25 mcg Documented by: Warfarin Sodium (Warfarin Sodium 2.5 Mg Tablet) 2.5 mg PO [email or web address] [facility] Last Admin: 06/19/21 18:47 Dose: 2.5 mg Documented by: Warfarin Sodium (Warfarin Sodium 5 Mg Tablet) 5 mg PO MoTh@1800 [facility] Home Medications Medication Instructions Recorded Confirmed Last Taken Type balsalazide 750 mg capsule 2,250 mg PO TID 03/02/20 06/18/21 1 Day Ago History ~06/17/21 krill oil 500 mg capsule 500 mg PO DAILY 09/11/20 06/18/21 1 Day Ago History ~06/17/21 lactobacillus combination no.9 4 4,000 mmu cells PO DAILY 09/11/20 06/18/21 1 Day Ago History billion cell capsule (Adult 50 ~06/17/21 Plus Probiotic) multivitamin 1 tab PO DAILY 09/11/20 06/18/21 06/04/21 12:00 History benralizumab 30 mg/mL subcutaneous 30 mg SUBCUT Q8W 06/05/21 06/18/21 06/10/21 History syringe (Fasenra) cholecalciferol (vitamin D3) 25 25 mcg PO DAILY 06/05/21 06/18/21 1 Day Ago History mcg (1,000 unit) tablet ~06/17/21 metoprolol tartrate 25 mg tablet 25 mg PO BID@1200,2100 06/05/21 06/18/21 1 Day Ago History ~06/17/21 warfarin 5 mg tablet 2.5 mg PO SUTUWEFRSA 06/05/21 06/18/21 06/16/21 History warfarin 5 mg tablet 5 mg PO MOTH 06/05/21 06/18/21 06/13/21 History Physical Exam Vital Signs: Vital Signs: Last Vital Signs Temp 98.4 F 06/19/21 16:00 Pulse 109 H 06/19/21 16:00 Resp 20 06/19/21 16:00 BP 148/83 H 06/19/21 16:00 Pulse Ox 95 06/19/21 16:00 BMI result Body Mass Index 43.5 GENERAL APPEARANCE: Obese, short of breath, on supplemental oxygen. NECK: no carotid bruit, + jugular venous distention. SKIN: no suspicious lesions, warm and dry. HEART: no murmurs, irregular rate and rhythm. LUNGS: Few crackles at bases. ABDOMEN: soft, nontender. EXTREMITIES: 1+ edema. PERIPHERAL PULSES: equal. NEUROLOGIC: No gross deficits, AAO X 3 Objective Labs and Meds Result diagrams: 06/18/21 06:47 06/19/21 06:36 Lab results: Laboratory Results - last 24 hr 06/19/21 06/19/21 06:36 06:36 PT 19.8 H INR 1.7 H Creatinine 1.11 Estim Creat Clear Calc 88.4 Estimated GFR > 60 Imaging Radiologist's impression: Impressions Chest CT 06/19/21 09:15 IMPRESSION: Left lower lobe infiltrate. Fleischner guidelines were followed. Assessment and Plan (1) Acute respiratory failure with hypoxia: Status: Acute (2) Atrial fibrillation with rapid ventricular response: Status: Acute Plan [age] gentleman presenting for shortness of breath and hypoxia. He has known history of emphysema. Recent discharge with question of cholecystitis which was conservatively managed. Started IV antibiotics for pneumonia. He has chronic AFib which is faster probably due to sepsis at this stage. Agree with Cardizem as his ejection fraction and RV function recently were normal. He looks volume overloaded by exam. Would benefit from gentle diuresis still sepsis improves. AFib with RVR is just a reaction to infection at this point. Thank you for allowing me to participate in the care of your patient. Please feel free to contact me if you have any questions. Procedures Date of Service Date of Service: 06/20/21
[2021-06-19 21:23] LABS: Vancomycin Random 5.1 mcg/mL (15-20)
[2021-06-19] MEDS: guaiFENesin LA 600 MG TAB.ER.12H PO (22:18)
[2021-06-19] MEDS: vancomycin HCL 1,500 MG in 0.9 % Sodium Chloride 500 ML 333.33 MG IV (22:21)
[2021-06-19] MEDS: Acetaminophen 325 MG TABLET 650 MG PO (22:25)
[2021-06-20] VITALS (7 sets, daily range): BP systolic 102–126; BP diastolic 57–65; PULSE 82–107; RESP 14–19; TEMP 36.2–37.3; O2SAT 91–98
[2021-06-20] MEDS: Piperacillin Sodium/Tazobactam 3.375 GM in 0.9 % Sodium Chloride 50 ML IV ×4 (00:48→18:21)
[2021-06-20] MEDS: Acetaminophen 325 MG TABLET 650 MG PO (04:19)
[2021-06-20 06:51] LABS: Hematocrit 41.3 % (42.0-52.0); Hemoglobin 11.9 g/dl (14.0-18.0); Mean Corpuscular HGB Conc 28.8 g/dl (31.0-36.0); Mean Corpuscular Hemoglobin 25.6 pg (27.0-33.0); Mean Corpuscular Volume 88.8 fL (80.0-98.0); Mean Platelet Volume 10.6 fL (9.4-12.4); Platelet Count 277 X10*3/uL (160-400); Red Blood Count 4.65 X10*6/uL (4.60-5.80); Red Cell Distribution Width 16.6 % (11.0-16.0); White Blood Count 7.4 X10*3/uL (4.8-10.8)
[2021-06-20 07:15] LABS: Creatinine Clr Calc Pharmacy 91.7; Estimated Glomerular Filt Rate > 60
[2021-06-20 07:36] LABS: Anion Gap 10 (12-20); Blood Urea Nitrogen 8 mg/dL (9-16); Carbon Dioxide 30 mmol/L (22-29); Chloride 105 mmol/L (96-108); Creatinine Clr Calc Pharmacy 92.6; Estimated Glomerular Filt Rate > 60; Glucose Random 101 mg/dL (60-115); Potassium 4.3 mmol/L (3.3-5.1); Sodium 141 mmol/L (135-145)
[2021-06-20] MEDS: Fluticasone/Vilanterol 200/25 BLST.W.DEV 1 PUFF INHALE (07:37)
[2021-06-20 08:30] LABS: INTERNATIONAL NORM RATIO 1.8 (0.9-1.1); Prothrombin Time 20.5 SEC (9.9-13.0)
[2021-06-20 08:37] LABS: Calcium 8.4 mg/dL (8.4-10.2)
--- NOTE | 2021-06-20 10:52 | P.CDIC_ITS ---
CDI Concurrent Query Documentation Clarification: PHYSICIAN'S DOCUMENTATION REQUEST Date of Query: 06/20/21 1053 Patient Name: Gorge Dave Admit Date: 06/17/21 Dear Doctor, A review of the medical record indicates additional documentation may be needed. Please review below and update the documentation accordingly. Clinical Indicators: Height: [] Weight: [] BMI: [] Other Clinical Notes Supporting Significance of the BMI: Risk Factors/Clinical Indicators/Treatments If possible, please provide an associated diagnosis related to the abnormal BMI, such as: For a BMI <= 19: * Underweight * Weight loss * Cachexia * Anorexia For a BMI >= 40: * Overweight * Obesity * Due to excess calories * Drug induced * Due to other cause * Severe or Morbid Obesity * With alveolar hypoventilation * Without alveolar hypoventilation Or: * BMI is not significant * Other (please specify) * Unable to determine Use of terms such as suspected, likely, concern for, or probable (associated with a specific diagnosis that is being evaluated, monitored, or treated as if it exists) are acceptable and can be coded in the inpatient setting, when documented at the time of discharge. Thank you, Yesy Otoole [insert CDI's credentials] Extension: [4-digit phone extension] Please use your independent medical judgment in providing your response. THIS QUERY IS PART OF THE PERMANENT MEDICAL RECORD
--- NOTE | 2021-06-20 10:52 | MHC.CDI.CONC ---
CDI Concurrent Query Documentation Clarification: PHYSICIAN'S DOCUMENTATION REQUEST Date of Query: 06/20/21 1054 Patient Name: Gorge Dave Admit Date: 06/17/21 Dear Doctor, A review of the medical record indicates additional documentation may be needed. Please review below and update the documentation accordingly. Clinical Indicators: Height: [] Weight: [] BMI: [] Other Clinical Notes Supporting Significance of the BMI: Risk Factors/Clinical Indicators/Treatments If possible, please provide an associated diagnosis related to the abnormal BMI, such as: For a BMI <= 19: Underweight Weight loss Cachexia Anorexia For a BMI >= 40: Overweight Obesity Due to excess calories Drug induced Due to other cause Severe or Morbid Obesity With alveolar hypoventilation Without alveolar hypoventilation Or: BMI is not significant Other (please specify) Unable to determine Use of terms such as suspected, likely, concern for, or probable (associated with a specific diagnosis that is being evaluated, monitored, or treated as if it exists) are acceptable and can be coded in the inpatient setting, when documented at the time of discharge. Thank you, Yesy Otoole [insert CDI's credentials] Extension: [4-digit phone extension] Please use your independent medical judgment in providing your response. THIS QUERY IS PART OF THE PERMANENT MEDICAL RECORD
[2021-06-20] MEDS: 0.9 % Sodium Chloride Flush 3 ML SYRINGE IVFLUSH ×3 (10:57→22:07)
[2021-06-20] MEDS: Furosemide 20 MG TABLET PO (10:58)
[2021-06-20] MEDS: guaiFENesin LA 600 MG TAB.ER.12H PO ×2 (10:58→22:07)
[2021-06-20] MEDS: Cholecalciferol (Vitamin D3) 25 MCG TABLET PO (10:58)
[2021-06-20] MEDS: Multivitamin TABLET 1 TAB PO (10:58)
[2021-06-20] MEDS: Balsalazide Disodium 750 MG CAPSULE 2250 MG PO ×3 (10:58→22:07)
--- NOTE | 2021-06-20 12:24 | P.PNIM_ITS ---
Subjective Subjective Date of Service: 06/20/21 Interval History: seen and examined this morning some cough, intermittent yellow phlegm some SOB with exertion, he reports this seems unchanged from baseline Review of Systems Review of Systems: Yes all other systems are reviewed and are negative Constitutional Constitutional: Denies chills and Denies fever(s) Cardiovascular Cardiovascular: Denies chest pain, Denies palpitations and Reports dyspnea on exertion Respiratory Respiratory: Reports cough and Reports dyspnea on exertion Endocrine Endocrine: Denies palpitations Physical Exam Vital Signs: Vital Signs: Last Vital Signs Temp 97.3 F 06/20/21 11:03 Pulse 89 06/20/21 11:03 Resp 16 06/20/21 11:03 BP 126/57 L 06/20/21 11:03 Pulse Ox 96 06/20/21 11:03 BMI result Body Mass Index 43.5 Const: General: cooperative, comfortable, alert and awake Nutritional Appearance: obese Orientation/consciousness: patient oriented x3 Resp: Other: distant breath sounds; difficult to assess Effort & Inspection: normal respiratory effort and able to speak in complete sentences Cardio: Rate: regular rate Heart sounds: S1 normal heart sound present and S2 normal heart sound present GI: Other: soft, non-tender; ostomy present Inspection: Yes obesity Neuro: Other: grossly non-focal General: patient oriented x3 Objective Data Active Medications Acetaminophen (Acetaminophen 325 Mg Tablet) 650 mg PO Q6H PRN PRN Reason: Pain, Mild (Pain Scale 1-3) Last Admin: 06/20/21 04:19 Dose: 650 mg Documented by: ZEINA Albuterol Sulfate (Albuterol Sulfate 90 Mcg 8 Gm Inhaler) 2 puff INHALE Q4H PRN PRN Reason: shortness of breath or wheezing Balsalazide (Balsalazide Disodium 750 Mg Capsule) 2,250 mg PO TID [facility] Last Admin: 06/20/21 10:58 Dose: 2,250 mg Documented by: HAROON Docusate Sodium (Docusate Sodium 100 Mg Capsule) 100 mg PO DAILY PRN PRN Reason: Constipation Fluticasone/Vilanterol (Fluticasone/Vilanterol 200/25 Blst.W.Dev) 1 puff INHALE RDAILY [facility] Last Admin: 06/20/21 07:37 Dose: 1 puff Documented by: TAHIR Furosemide (Furosemide 20 Mg Tablet) 20 mg PO DAILY [facility]; Protocol Last Admin: 06/20/21 10:58 Dose: 20 mg Documented by: HAROON Guaifenesin (Guaifenesin La 600 Mg Tab.Er.12h) 600 mg PO BID [facility] Last Admin: 06/20/21 10:58 Dose: 600 mg Documented by: HAROON Diltiazem HCl 125 mg/ Sodium (Chloride) 125 mls @ 0 mls/hr IVCONT .Q0M [facility]; Protocol Last Titration: 06/19/21 04:08 Dose: 0 mg/hr, 0 mls/hr Documented by: ETHEL Piperacillin Sod/Tazobactam (Sod 3.375 gm/ Sodium Chloride) 50 mls @ 100 mls/hr IV Q6H [facility] Last Infusion: 06/20/21 06:52 Dose: 0 mls/hr Documented by: ZEINA Vancomycin HCl 1,500 mg/ (Sodium Chloride) 500 mls @ 333.333 mls/hr IV Q24H [facility] Last Infusion: 06/20/21 00:00 Dose: 0 mls/hr Documented by: ZEINA Metoprolol Tartrate (Metoprolol Tartrate 25 Mg Tablet) 25 mg PO BID@1200,2100 [facility]; Protocol Last Admin: 06/19/21 22:18 Dose: 25 mg Documented by: ZEINA Multivitamins/Vitamin C (Multivitamin Tablet) 1 tab PO DAILY [facility] Last Admin: 06/20/21 10:58 Dose: 1 tab Documented by: HAROON Ondansetron HCl (Ondansetron Hcl 4 Mg/2 Ml Vial) 4 mg IVPUSH Q8H PRN PRN Reason: Nausea and Vomiting Pharmacy Consult (Consult Rx Vancomycin Dosing) 1 each MISCELLANE DAILY PRN PRN Reason: Consult order Sodium Chloride (0.9 % Sodium Chloride Flush 3 Ml Syringe) 3 ml IVFLUSH QSHIFT [facility] Last Admin: 06/20/21 10:57 Dose: 3 ml Documented by: HAROON Vitamin D (Cholecalciferol (Vitamin D3) 25 Mcg Tablet) 25 mcg PO DAILY [facility] Last Admin: 06/20/21 10:58 Dose: 25 mcg Documented by: HAROON Warfarin Sodium (Warfarin Sodium 2.5 Mg Tablet) 2.5 mg [email or web address] Last Admin: 06/19/21 18:47 Dose: 2.5 mg Documented by: LEBRON Warfarin Sodium (Warfarin Sodium 5 Mg Tablet) 5 mg PO MoTh@1800 [facility] Warfarin Sodium (Warfarin Sodium 2.5 Mg Tablet) 2.5 mg PO ONCE@1800 ONE Stop: 06/20/21 18:01 Labs CBC & Chem 7: 06/20/21 06:04 06/20/21 06:04 Labs: Laboratory Results - last 24 hr 06/19/21 06/20/21 06/20/21 20:43 06:04 06:04 MCV 88.8 MCH 25.6 L MCHC 28.8 L RDW 16.6 H Plt Count 277 MPV 10.6 Absolute Nucleated RBC 0.000 Nucleated RBC % (auto) 0.0 PT INR Anion Gap Estim Creat Clear Calc 91.7 Estimated GFR > 60 Random Glucose Calcium Random Vancomycin 5.1 L 06/20/21 06/20/21 06:04 08:09 MCV MCH MCHC RDW Plt Count MPV Absolute Nucleated RBC Nucleated RBC % (auto) PT 20.5 H INR 1.8 H Anion Gap 10 L Estim Creat Clear Calc 92.6 Estimated GFR > 60 Random Glucose 101 Calcium 8.4 D Random Vancomycin Microbiology Microbiology Results: Microbiology 06/17/21 19:13 Blood Culture - Preliminary Blood - Venous No growth after 48 hours. 06/17/21 19:13 Blood Culture - Preliminary Blood - Venous No growth after 48 hours. Assessment and Plan (1) Acute respiratory failure with hypoxia: Status: Acute (2) Left lower lobe pneumonia: Status: Acute Plan 66-year-old male with various? previous medical history who presents to the hospital with complaints of a fall found to have AFib with RVR among other findings including sepsis, WAN, elevated troponin as well as pneumonia AFib with RVR likely multifactorial secondary to sepsis as well as dehydration Cardizem drip off continue home dose of metoprolol continue warfarin for anticoagulation, INR 1.7, will give additional dose today monitor HR acute hypoxic respiratory failure secondary to hospital-acquired pneumonia sat 88% 2L NC, wean as tolerated Given recent hospitalization will continue IV vancomycin and Zosyn follow cultures Seen by speech, no evidence of overt aspiration sepsis. Resolved source likely pneumonia patient tachycardic, has increased leukocytosis, lactic acidosis, afebrile will treat with IV antibiotics for the above findings of pneumonia Blood cultures negative to date elevated troponin likely type 2 in the setting of AFib with RVR as well as infection trended down monitor WAN. Trending down likely prerenal in the setting of acute infection lactic acidosis secondary to acute sepsis well as dehydration trended down with IV fluids, will continue IV fluid resuscitation recent history of cholecystitis patient has no abdominal pain, guarding or rebound, no evidence of infection the gallbladder patient will be on IV antibiotics for above reasons monitor for any symptoms Crohn's disease stable will continue home medications Morbid obesity. BMI 43.6 Discussed the importance of weight management at this may be contributing to worsening of other comorbidities FABIOLA CPAP DVT prophylaxis: Warfarin Attending Dr. Dyer Patient requires continued hospitalization the patient is currently being treated with IV antibiotics for Hcap Quality Stroke Does the patient have a stroke diagnosis?: No VTE Prior VTE?: No VTE Risk Level:: Medical - moderate - high VTE Device Contraindication: Treatment Not Indicated VTE Drug Contraindication: N/A - Med Ordered
[2021-06-20] MEDS: Metoprolol Tartrate 25 MG TABLET PO ×2 (13:29→22:07)
--- NOTE | 2021-06-20 16:19 | P.PNCA_ITS ---
Subjective Subjective Date of Service: 06/20/21 Principal diagnosis: LLL PNA, AF RVR Interval history: cardiology follow up for AF. Seen at 1130. Today he reports feeling somewhat better. Has intermittent nonproductive cough. Slept in recliner as it was more comfortable for him. No chest pains, palpitation, dizziness. Steady on feet. Reports leg edema has gone down. Off Diltiazem drip. Tele showing afib with rates 70-80s at rest, up to 140 with activity. Review of Systems Review of Systems as above Yes all other systems are reviewed and are negative Physical Exam Vital Signs: Last Vital Signs Temp 99.0 F 06/20/21 15: Pulse 107 H 06/20/21 15:22 Resp 16 06/20/21 15:22 BP 114/61 06/20/21 15: Pulse Ox 98 06/20/21 15:22 BMI result Body Mass Index 43.5 Const General: cooperative, no acute distress, alert and awake Orientation/consciousness: patient oriented x3 Neck Neck: Yes normal visual inspection and Yes no JVD Resp Effort & Inspection: normal respiratory effort, able to speak in complete sentences and not labored Auscultation: clear to auscultation bilaterally, rales (left base), no rhonchi and no wheezes Cardio Rate: regular rate Rhythm: abnormal rhythm Heart sounds: S1 normal heart sound present and S2 normal heart sound present Peripheral pulses: Peripheral pulses 2+ throughout GI Other: obese, rounded, nontender Inspection: Yes normal to inspection Neuro General: patient oriented x3 Extrem General: Yes normal to inspection and No edema Objective Labs and Meds Result diagrams: 06/20/21 06:04 06/20/21 06:04 Lab results: Laboratory Results - last 24 hr 06/19/21 06/20/21 06/20/21 20:43 06:04 06:04 WBC 7.4 RBC 4.65 Hgb 11.9 L Hct 41.3 L MCV 88.8 MCH 25.6 L MCHC 28.8 L RDW 16.6 H Plt Count 277 MPV 10.6 Absolute Nucleated RBC 0.000 Nucleated RBC % (auto) 0.0 PT INR Sodium Potassium Chloride Carbon Dioxide Anion Gap BUN Creatinine 1.07 Estim Creat Clear Calc 91.7 Estimated GFR > 60 Random Glucose Calcium Random Vancomycin 5.1 L 06/20/21 06/20/21 06:04 08:09 WBC RBC Hgb Hct MCV MCH MCHC RDW Plt Count MPV Absolute Nucleated RBC Nucleated RBC % (auto) PT 20.5 H INR 1.8 H Sodium 141 Potassium 4.3 Chloride 105 Carbon Dioxide 30 H Anion Gap 10 L BUN 8 L Creatinine 1.06 Estim Creat Clear Calc 92.6 Estimated GFR > 60 Random Glucose 101 Calcium 8.4 D Random Vancomycin Progress Note: A&P Assessment and plan (1) Atrial fibrillation with rapid ventricular response: Status: Acute Assessment and Plan: Hx chronic afib. Rates elevated this admission for shortness of breath and b eing treated for left lower lobe pneumonia. On diltiazem drip for heart rate control. Continues unusual metoprolol 25 mg b.i.d.. Last echo done 04/12/2020 showed normal EF, moderate left atrial enlargement. 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 He did briefly go to 140 with activity this morning. He is on Coumadin for anticoagulation. INR today 1.8. INR goal 2-3. Dose being managed by hospitalist. He normally follows with the [facility] [place] anticoagulation [facility]. Continue with medical management for pneumonia. Diltiazem drip has been weaned off and he remains just on the metoprolol. Continue Coumadin. We will follow as needed. Following discharge we will see him in the office. (2) Left lower lobe pneumonia: Status: Acute Assessment and Plan: As above (3) Current use of usp anticoagulation: Status: Acute Assessment and Plan: On Coumadin. No bleeding issues reported Fall Risk Details Current Medications: Current Medications Acetaminophen (Acetaminophen 325 Mg Tablet) 650 mg PO Q6H PRN PRN Reason: Pain, Mild (Pain Scale 1-3) Last Admin: 06/20/21 04:19 Dose: 650 mg Documented by: Albuterol Sulfate (Albuterol Sulfate 90 Mcg 8 Gm Inhaler) 2 puff INHALE Q4H PRN PRN Reason: shortness of breath or wheezing Balsalazide (Balsalazide Disodium 750 Mg Capsule) 2,250 mg PO TID [facility] Last Admin: 06/20/21 14:00 Dose: 2,250 mg Documented by: Docusate Sodium (Docusate Sodium 100 Mg Capsule) 100 mg PO DAILY PRN PRN Reason: Constipation Fluticasone/Vilanterol (Fluticasone/Vilanterol 200/25 Blst.W.Dev) 1 puff INHALE RDAILY [facility] Last Admin: 06/20/21 07:37 Dose: 1 puff Documented by: Furosemide (Furosemide 20 Mg Tablet) 20 mg PO DAILY [facility]; Protocol Last Admin: 06/20/21 10:58 Dose: 20 mg Documented by: Guaifenesin (Guaifenesin La 600 Mg Tab.Er.12h) 600 mg PO BID [facility] Last Admin: 06/20/21 10:58 Dose: 600 mg Documented by: Diltiazem HCl 125 mg/ Sodium (Chloride) 125 mls @ 0 mls/hr IVCONT .Q0M [facility]; Protocol Last Titration: 06/19/21 04:08 Dose: 0 mg/hr, 0 mls/hr Documented by: Piperacillin Sod/Tazobactam (Sod 3.375 gm/ Sodium Chloride) 50 mls @ 100 mls/hr IV Q6H [facility] Last Infusion: 06/20/21 14:02 Dose: Infused Documented by: Vancomycin HCl 1,500 mg/ (Sodium Chloride) 500 mls @ 333.333 mls/hr IV Q24H [facility] Last Infusion: 06/20/21 00:00 Dose: Infused Documented by: Metoprolol Tartrate (Metoprolol Tartrate 25 Mg Tablet) 25 mg PO BID@1200,2100 [facility]; Protocol Last Admin: 06/20/21 13:29 Dose: 25 mg Documented by: Multivitamins/Vitamin C (Multivitamin Tablet) 1 tab PO DAILY [facility] Last Admin: 06/20/21 10:58 Dose: 1 tab Documented by: Ondansetron HCl (Ondansetron Hcl 4 Mg/2 Ml Vial) 4 mg IVPUSH Q8H PRN PRN Reason: Nausea and Vomiting Pharmacy Consult (Consult Rx Vancomycin Dosing) 1 each MISCELLANE DAILY PRN PRN Reason: Consult order Sodium Chloride (0.9 % Sodium Chloride Flush 3 Ml Syringe) 3 ml IVFLUSH QSHIFT [facility] Last Admin: 06/20/21 16:15 Dose: 3 ml Documented by: Vitamin D (Cholecalciferol (Vitamin D3) 25 Mcg Tablet) 25 mcg PO DAILY [facility] Last Admin: 06/20/21 10:58 Dose: 25 mcg Documented by: Warfarin Sodium (Warfarin Sodium 2.5 Mg Tablet) 2.5 mg PO SuTuWeFrSa@1800 [facility] Last Admin: 06/19/21 18:47 Dose: 2.5 mg Documented by: Warfarin Sodium (Warfarin Sodium 5 Mg Tablet) 5 mg PO MoTh@1800 [facility] Warfarin Sodium (Warfarin Sodium 2.5 Mg Tablet) 2.5 mg PO ONCE@1800 ONE Stop: 06/20/21 18:01 Time Spent With Patient Time: Total time spent is greater than 50% in coordination of care (as documented) at patient's floor/unit and/or counseling patient: Progress Note: Quality Stroke Does the patient have a stroke diagnosis?: No Procedures Date of Service Date of Service: 06/20/21
[2021-06-20] MEDS: Warfarin Sodium 2.5 MG TABLET PO (18:20)
[2021-06-20] MEDS: Warfarin Sodium 5 MG TABLET PO (18:21)
[2021-06-20 21:49] LABS: Vancomycin Trough 6.6 mcg/mL (10.0-20.0)
--- NOTE | 2021-06-20 22:06 | HE.PHANOTE ---
Patients trough low at 6.6, increased dose to 1750 mg, predicted auc potentially <400, also dont want to risk dose dumping. redraw 06/21, maybe increase to q12, also pt sepsis resolved and wbc improved, potentially de-escalate abx in future?
[2021-06-20] MEDS: vancomycin HCL 1,000 MG, vancomycin HCL 750 MG in 0.9 % Sodium Chloride 500 ML 267.5 MG IV (23:41)
[2021-06-21] VITALS (7 sets, daily range): BP systolic 103–120; BP diastolic 62–83; PULSE 89–117; RESP 15–20; TEMP 36.1–38.1; O2SAT 90–98
[2021-06-21] MEDS: Piperacillin Sodium/Tazobactam 3.375 GM in 0.9 % Sodium Chloride 50 ML IV ×4 (01:58→20:39)
[2021-06-21] MEDS: Acetaminophen 325 MG TABLET 650 MG PO ×2 (04:39→20:42)
[2021-06-21 07:10] LABS: Creatinine Clr Calc Pharmacy 95.3; Estimated Glomerular Filt Rate > 60
[2021-06-21 07:12] LABS: INTERNATIONAL NORM RATIO 2.3 (0.9-1.1); Prothrombin Time 26.8 SEC (9.9-13.0)
[2021-06-21] MEDS: Balsalazide Disodium 750 MG CAPSULE 2250 MG PO ×3 (10:01→20:41)
[2021-06-21] MEDS: Furosemide 20 MG/2 ML VIAL IVPUSH (10:02)
[2021-06-21] MEDS: 0.9 % Sodium Chloride Flush 3 ML SYRINGE IVFLUSH ×3 (10:02→20:43)
[2021-06-21] MEDS: guaiFENesin LA 600 MG TAB.ER.12H PO ×2 (10:02→20:43)
[2021-06-21] MEDS: Cholecalciferol (Vitamin D3) 25 MCG TABLET PO (10:02)
[2021-06-21] MEDS: Multivitamin TABLET 1 TAB PO (10:02)
--- NOTE | 2021-06-21 12:11 | MHC.CM.PN ---
Male 66 DX PNA Anticipate discharge Thursday or Thursday per MD rounds. Patient has spoken with DPH.
[2021-06-21] MEDS: Metoprolol Tartrate 25 MG TABLET PO ×2 (13:29→20:41)
--- NOTE | 2021-06-21 13:41 | P.PNIM_ITS ---
Subjective Subjective Date of Service: 06/21/21 Interval History: Seen and examined this morning Follow-up for pneumonia, rapid AFib Patient denies any chest pain, palpitations Patient reports improvement in shortness of breath and cough Review of Systems Review of Systems: Yes all other systems are reviewed and are negative Constitutional Constitutional: Denies chills and Denies fever(s) Cardiovascular Cardiovascular: Denies chest pain, Denies palpitations and Reports dyspnea on exertion Respiratory Respiratory: Reports cough and Reports dyspnea on exertion Endocrine Endocrine: Denies palpitations Physical Exam Vital Signs: Vital Signs: Last Vital Signs Temp 98.0 F 06/21/21 11:32 Pulse 108 H 06/21/21 11:32 Resp 20 06/21/21 11:32 BP 120/71 06/21/21 11:32 Pulse Ox 93 06/21/21 11:32 BMI result Body Mass Index 43.5 Const: General: cooperative, comfortable, alert and awake Nutritional Appearance: obese Orientation/consciousness: patient oriented x3 Resp: Other: distant breath sounds Effort & Inspection: normal respiratory effort and able to speak in complete sentences Cardio: Rate: regular rate Heart sounds: S1 normal heart sound present and S2 normal heart sound present GI: Other: soft, non-tender; ostomy present Inspection: Yes obesity Neuro: Other: grossly non-focal General: patient oriented x3 Extrem: Other: b/l leg edema Objective Data Active Medications Acetaminophen (Acetaminophen 325 Mg Tablet) 650 mg PO Q6H PRN PRN Reason: Pain, Mild (Pain Scale 1-3) Last Admin: 06/21/21 04:39 Dose: 650 mg Documented by: NAAMADAOC Albuterol Sulfate (Albuterol Sulfate 90 Mcg 8 Gm Inhaler) 2 puff INHALE Q4H PRN PRN Reason: shortness of breath or wheezing Balsalazide (Balsalazide Disodium 750 Mg Capsule) 2,250 mg PO TID [facility] Last Admin: 06/21/21 10:01 Dose: 2,250 mg Documented by: DOBROB Docusate Sodium (Docusate Sodium 100 Mg Capsule) 100 mg PO DAILY PRN PRN Reason: Constipation Fluticasone/Vilanterol (Fluticasone/Vilanterol 200/25 Blst.W.Dev) 1 puff INHALE RDAILY [facility] Last Admin: 06/21/21 07:46 Dose: Not Given Documented by: EDITH Non-Admin Reason: Patient Refused Furosemide (Furosemide 20 Mg/2 Ml Vial) 20 mg IVPUSH DAILY [facility]; Protocol Last Admin: 06/21/21 10:02 Dose: 20 mg Documented by: LEBRON Guaifenesin (Guaifenesin La 600 Mg Tab.Er.12h) 600 mg PO BID [facility] Last Admin: 06/21/21 10:02 Dose: 600 mg Documented by: LEBRON Vancomycin HCl 1,000 mg/Vancomycin HCl 750 mg/ Sodium Chloride 535 mls @ 267.5 mls/hr IV Q24H [facility] Last Infusion: 06/21/21 02:00 Dose: 0 mls/hr Documented by: ZEINA Piperacillin Sod/Tazobactam (Sod 3.375 gm/ Sodium Chloride) 50 mls @ 100 mls/hr IV Q6H [facility] Last Admin: 06/21/21 07:37 Dose: Not Given Documented by: ZEINA Non-Admin Reason: Med already given Metoprolol Tartrate (Metoprolol Tartrate 25 Mg Tablet) 25 mg PO BID@1200,2100 [facility]; Protocol Last Admin: 06/21/21 13:29 Dose: 25 mg Documented by: LEBRON Multivitamins/Vitamin C (Multivitamin Tablet) 1 tab PO DAILY [facility] Last Admin: 06/21/21 10:02 Dose: 1 tab Documented by: LEBRON Ondansetron HCl (Ondansetron Hcl 4 Mg/2 Ml Vial) 4 mg IVPUSH Q8H PRN PRN Reason: Nausea and Vomiting Pharmacy Consult (Consult Rx Vancomycin Dosing) 1 each MISCELLANE DAILY PRN PRN Reason: Consult order Sodium Chloride (0.9 % Sodium Chloride Flush 3 Ml Syringe) 3 ml IVFLUSH QSHIFT [facility] Last Admin: 06/21/21 10:02 Dose: 3 ml Documented by: LEBRON Vitamin D (Cholecalciferol (Vitamin D3) 25 Mcg Tablet) 25 mcg PO DAILY [facility] Last Admin: 06/21/21 10:02 Dose: 25 mcg Documented by: LEBRON Warfarin Sodium (Warfarin Sodium 2.5 Mg Tablet) 2.5 mg PO SuTuWeFrSa@1800 [facility] Last Admin: 06/19/21 18:47 Dose: 2.5 mg Documented by: LEBRON Warfarin Sodium (Warfarin Sodium 5 Mg Tablet) 5 mg PO MoTh@1800 [facility] Last Admin: 06/20/21 18:21 Dose: 5 mg Documented by: GAVIN Labs CBC & Chem 7: 06/20/21 06:04 06/21/21 06:22 Labs: Laboratory Results - last 24 hr 06/20/21 06/21/21 06/21/21 21:13 06:22 06:22 PT 26.8 H INR 2.3 H Estim Creat Clear Calc 95.3 Estimated GFR > 60 Vancomycin Trough 6.6 L Assessment and Plan (1) Acute respiratory failure with hypoxia: Status: Acute (2) Atrial fibrillation with rapid ventricular response: Status: Acute Plan 66-year-old male with various? previous medical history who presents to the hospital with complaints of a fall found to have AFib with RVR among other findings including sepsis, WAN, elevated troponin as well as pneumonia AFib with RVR. HR still increases with activity likely multifactorial secondary to sepsis as well as dehydration Cardizem drip off continue home dose of metoprolol continue warfarin for anticoagulation, INR 2.3 monitor HR acute hypoxic respiratory failure secondary to hospital-acquired pneumonia initially sat 88% 2L. now low 90s on room air Given recent hospitalization will continue IV vancomycin and Zosyn follow cultures Seen by speech, no evidence of overt aspiration acute mild HFpEF increasing leg edema has been getting home dose of lasix - will start gentle diuresis with IV lasix overall + this admission, will follow Is&Os sepsis. Resolved source likely pneumonia patient tachycardic, has increased leukocytosis, lactic acidosis, afebrile will treat with IV antibiotics for the above findings of pneumonia Blood cultures negative to date elevated troponin likely type 2 in the setting of AFib with RVR as well as infection trended down, creatinine stable WAN. Trending down likely prerenal in the setting of acute infection lactic acidosis secondary to acute sepsis well as dehydration trended down with IV fluids, will continue IV fluid resuscitation recent history of cholecystitis patient has no abdominal pain, guarding or rebound, no evidence of infection the gallbladder patient will be on IV antibiotics for above reasons monitor for any symptoms Crohn's disease stable will continue home medications Morbid obesity. BMI 43.6 Discussed the importance of weight management at this may be contributing to worsening of other comorbidities FABIOLA CPAP DVT prophylaxis: Warfarin Attending Dr. Dyer Patient requires continued hospitalization the patient is currently being treated with IV antibiotics for Hcap and diuresis for CHF Quality Stroke Does the patient have a stroke diagnosis?: No VTE Prior VTE?: No VTE Risk Level:: Medical - moderate - high VTE Device Contraindication: Treatment Not Indicated VTE Drug Contraindication: N/A - Med Ordered
--- NOTE | 2021-06-21 14:25 | PM.PNCARD ---
Subjective Subjective Date of Service: 06/21/21 <LINDA Barrera - Last Filed: 06/21/21 14:35> 06/21/21 <Shaggy Tejada MD - Last Filed: 06/21/21 16:14> Principal diagnosis: LLL PNA, AF RVR <LINDA Barrera - Last Filed: 06/21/21 14:35> Interval history: Cardiology follow up for afib. Seen at 1130. Today he reports that he is doing well. Breathing comfortable. Occassional nonproductive cough. No chest pains, palpitations, dizziness. He states lower legs look ok. Steady on feet when walking. Slept in recliner due to comfort. Tele shows afib rates controlled at rest and do rise with activity. <LINDA Barrera - Last Filed: 06/21/21 14:35> Review of Systems Review of Systems as above <LINDA Barrera - Last Filed: 06/21/21 14:35> Yes all other systems are reviewed and are negative <LINDA Barrera - Last Filed: 06/21/21 14:35> Physical Exam Vital Signs: Last Vital Signs Temp 98.0 F 06/21/21 11:32 Pulse 108 H 06/21/21 11:32 Resp 20 06/21/21 11:32 BP 120/71 06/21/21 11:32 Pulse Ox 93 06/21/21 11:32 BMI result Body Mass Index 43.5 <LINDA Barrera - Last Filed: 06/21/21 14:35> Const General: cooperative, no acute distress, alert and awake <LINDA Barrera - Last Filed: 06/21/21 14:35> Orientation/consciousness: patient oriented x3 <LINDA Barrera - Last Filed: 06/21/21 14:35> Neck Neck: Yes normal visual inspection and Yes no JVD <LINDA Barrera - Last Filed: 06/21/21 14:35> Resp Effort & Inspection: normal respiratory effort, able to speak in complete sentences and not labored <LINDA Barrera - Last Filed: 06/21/21 14:35> Auscultation: clear to auscultation bilaterally, no rhonchi and no wheezes <Mary VazquezJAZMIN - Last Filed: 06/21/21 14:35> Cardio Rate: regular rate <Mary GeorgeJAZMIN - Last Filed: 06/21/21 14:35> Rhythm: abnormal rhythm <[facility] George [facility] - Last Filed: 06/21/21 14:35> Heart sounds: S1 normal heart sound present and S2 normal heart sound present <Mary GeorgeJAZMIN - Last Filed: 06/21/21 14:35> Peripheral pulses: Peripheral pulses 2+ throughout <Mary GeorgeJAZMIN - Last Filed: 06/21/21 14:35> Neuro General: patient oriented x3 <Mary GeorgeJAZMIN - Last Filed: 06/21/21 14:35> Extrem Other: mildly pitting ankle <Mary GeorgeJAZMIN - Last Filed: 06/21/21 14:35> General: Yes normal to inspection <Mary GeorgeJAZMIN - Last Filed: 06/21/21 14:35> Objective Labs and Meds Result diagrams: : 06/20/21 06:04 06/21/21 06:22 <Mary VazquezJAZMIN - Last Filed: 06/21/21 14:35> Lab results: Laboratory Results - last 24 hr 06/20/21 06/21/21 06/21/21 21:13 06:22 06:22 PT 26.8 H INR 2.3 H Creatinine 1.03 Estim Creat Clear Calc 95.3 Estimated GFR > 60 Vancomycin Trough 6.6 L <Mary GeorgeJAZMIN - Last Filed: 06/21/21 14:35> Progress Note: A&P Assessment and plan (1) Atrial fibrillation with rapid ventricular response: Status: Acute <Mary VazquezLIZZ - Last Filed: 06/21/21 14:35> Assessment and Plan: Hx chronic afib.? Rates elevated this admission for shortness of breath and being treated for left lower lobe pneumonia.? Initially on diltiazem drip for heart rate control.? Continues on usual metoprolol 25 mg b.i.d..? Last echo done 04/12/2020 showed normal EF, moderate left atrial enlargement.? 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 He denies palpitation or chest discomfort. ? He is on Coumadin for anticoagulation.? INR today 2.3.? INR goal 2-3.? Dose being managed by hospitalist.? He normally follows with the [facility] [place] [facility] [facility].? Continue with medical management for pneumonia.? Diltiazem drip has been weaned off and he remains just on the metoprolol.? Continue Coumadin.? We will follow as needed.? Following discharge we will see him in the office. <LINDA Barrera - Last Filed: 06/21/21 14:35> (2) Left lower lobe pneumonia: Status: Acute <LINDA Barrera - Last Filed: 06/21/21 14:35> Plan Patient seen at bedside. Feeling better and dyspnea improving. Afib is poorly controlled and HR worse when he ambulates. Continue with meds. Not unusual to have tachycardia with infection and it may take few days for his heart rate to return to normal. If HR <120 with ambulation I think he can return home and can follow with us as outpatient for further management. <Shaggy Tejada MD - Last Filed: 06/21/21 16:14> Fall Risk Details Current Medications: Current Medications Acetaminophen (Acetaminophen 325 Mg Tablet) 650 mg PO Q6H PRN PRN Reason: Pain, Mild (Pain Scale 1-3) Last Admin: 06/21/21 04:39 Dose: 650 mg Documented by: Albuterol Sulfate (Albuterol Sulfate 90 Mcg 8 Gm Inhaler) 2 puff INHALE Q4H PRN PRN Reason: shortness of breath or wheezing Balsalazide (Balsalazide Disodium 750 Mg Capsule) 2,250 mg PO TID [facility]PL[facility] BY [facility] Last Admin: 06/21/21 10:01 Dose: 2,250 mg Documented by: Docusate Sodium (Docusate Sodium 100 Mg Capsule) 100 mg PO DAILY PRN PRN Reason: Constipation Fluticasone/Vilanterol (Fluticasone/Vilanterol 200/25 Blst.WDion) 1 puff INHALE RDAILY [facility] Last Admin: 06/21/21 07:46 Dose: Not Given Documented by: Furosemide (Furosemide 20 Mg/2 Ml Vial) 20 mg IVPUSH DAILY [facility]; Protocol Last Admin: 06/21/21 10:02 Dose: 20 mg Documented by: Guaifenesin (Guaifenesin La 600 Mg Tab.Er.12h) 600 mg PO BID [facility]PL[facility] Last Admin: 06/21/21 10:02 Dose: 600 mg Documented by: Vancomycin HCl 1,000 mg/Vancomycin HCl 750 mg/ Sodium Chloride 535 mls @ 267.5 mls/hr IV Q24H [facility]PL[facility] Last Infusion: 06/21/21 02:00 Dose: Infused Documented by: Piperacillin Sod/Tazobactam (Sod 3.375 gm/ Sodium Chloride) 50 mls @ 100 mls/hr IV Q6H [facility]PL[facility] Last Admin: 06/21/21 07:37 Dose: Not Given Documented by: Metoprolol Tartrate (Metoprolol Tartrate 25 Mg Tablet) 25 mg PO BID@1200,2100 [facility]; Protocol Last Admin: 06/21/21 13:29 Dose: 25 mg Documented by: Multivitamins/Vitamin C (Multivitamin Tablet) 1 tab PO DAILY [facility] Last Admin: 06/21/21 10:02 Dose: 1 tab Documented by: Ondansetron HCl (Ondansetron Hcl 4 Mg/2 Ml Vial) 4 mg IVPUSH Q8H PRN PRN Reason: Nausea and Vomiting Pharmacy Consult (Consult Rx Vancomycin Dosing) 1 each MISCELLANE DAILY PRN PRN Reason: Consult order Sodium Chloride (0.9 % Sodium Chloride Flush 3 Ml Syringe) 3 ml IVFLUSH QSHIFT REPLACED BY [facility] Last Admin: 06/21/21 10:02 Dose: 3 ml Documented by: Vitamin D (Cholecalciferol (Vitamin D3) 25 Mcg Tablet) 25 mcg PO DAILY [facility]PL[facility] Last Admin: 06/21/21 10:02 Dose: 25 mcg Documented by: Warfarin Sodium (Warfarin Sodium 2.5 Mg Tablet) 2.5 mg PO SuTuWeFrSa@1800 REPLACED [facility] Last Admin: 06/19/21 18:47 Dose: 2.5 mg Documented by: Warfarin Sodium (Warfarin Sodium 5 Mg Tablet) 5 mg PO MoTh@1800 REPLACED BY [facility] Last Admin: 06/20/21 18:21 Dose: 5 mg Documented by: <LINDA Barrera - Last Filed: 06/21/21 14:35> Time Spent With Patient Time: Total time spent is greater than 50% in coordination of care (as documented) at patient's floor/unit and/or counseling patient: <LINDA Barrera - Last Filed: 06/21/21 14:35> Progress Note: Quality Stroke Does the patient have a stroke diagnosis?: No <LINDA Barrera - Last Filed: 06/21/21 14:35> Procedures Date of Service Date of Service: 06/21/21 <LINDA Barrera - Last Filed: 06/21/21 14:35>
[2021-06-21] MEDS: Warfarin Sodium 2.5 MG TABLET PO (18:27)
[2021-06-21 21:39] LABS: Vancomycin Trough 7.1 mcg/mL (10.0-20.0)
[2021-06-21] MEDS: vancomycin HCL 1,250 MG in 0.9 % Sodium Chloride 250 ML 166.67 MG IV (22:40)
[2021-06-21 23:39] LABS: HIV AB/AG Nonreactive (Nonreactive); HIV Num 1 0.12 S/CO (0.00-0.99)
[2021-06-22] VITALS (10 sets, daily range): BP systolic 102–145; BP diastolic 56–84; PULSE 89–135; RESP 15–25; TEMP 36.2–40.5; O2SAT 91–96
[2021-06-22 00:17] LABS: Alanine Aminotransferase 33 U/L (0-40); Albumin Level 2.8 g/dL (3.5-5.0); Alkaline Phosphatase 71 U/L (39-117); Aspartate Amino Transferase 74 U/L (5-37); Bilirubin Direct 0.3 mg/dL (0.0-0.5); Bilirubin Total 0.5 mg/dL (0.0-1.0); Total Protein 5.8 g/dL (6.5-8.0)
[2021-06-22] MEDS: Piperacillin Sodium/Tazobactam 3.375 GM in 0.9 % Sodium Chloride 50 ML IV ×3 (02:08→14:12)
[2021-06-22 07:18] LABS: Creatinine Clr Calc Pharmacy 105.6; Estimated Glomerular Filt Rate > 60
[2021-06-22] MEDS: 0.9 % Sodium Chloride Flush 3 ML SYRINGE IVFLUSH ×3 (09:24→22:38)
[2021-06-22] MEDS: Furosemide 20 MG/2 ML VIAL IVPUSH (09:24)
[2021-06-22] MEDS: Cholecalciferol (Vitamin D3) 25 MCG TABLET PO (09:25)
[2021-06-22] MEDS: Multivitamin TABLET 1 TAB PO (09:25)
[2021-06-22] MEDS: guaiFENesin LA 600 MG TAB.ER.12H PO ×2 (09:25→22:37)
[2021-06-22] MEDS: Balsalazide Disodium 750 MG CAPSULE 2250 MG PO ×3 (09:25→22:37)
--- NOTE | 2021-06-22 10:23 | PM.PNCARD ---
Subjective Subjective Date of Service: 06/22/21 Principal diagnosis: LLL PNA, AF RVR Interval history: Seen examined at bedside. Saying his breathing is improving. Still spiking fevers. If it control is suboptimal specially when he ambulates. Physical Exam Vital Signs: Last Vital Signs Temp 99.5 F 06/22/21 07:34 Pulse 95 06/22/21 07:34 Resp 20 06/22/21 07:34 BP 111/66 06/22/21 07:34 Pulse Ox 91 L 06/22/21 07:34 BMI result Body Mass Index 43.5 GENERAL APPEARANCE: in no acute distress, pleasant. NECK: no carotid bruit, no jugular venous distention. SKIN: no suspicious lesions, warm and dry. HEART: no murmurs, irregular rate and rhythm. LUNGS: Crackles at bases. ABDOMEN: soft, nontender. EXTREMITIES: no edema. PERIPHERAL PULSES: equal. NEUROLOGIC: No gross deficits, AAO X 3 Objective Labs and Meds Result diagrams: 06/20/21 06:04 06/22/21 06:08 Lab results: Laboratory Results - last 24 hr 06/21/21 06/21/21 06/21/21 20:59 20:59 22:54 PT INR Creatinine Estim Creat Clear Calc Estimated GFR Total Bilirubin 0.5 Direct Bilirubin 0.3 AST 74 H ALT 33 Alkaline Phosphatase 71 D Total Protein 5.8 L Albumin 2.8 L Vancomycin Trough 7.1 L HIV 1&2 Ab/P24 Ag 4thGn Nonreactive 06/22/21 06/22/21 06:08 07:21 PT 35.0 H INR 3.0 H Creatinine 0.93 Estim Creat Clear Calc 105.6 Estimated GFR > 60 Total Bilirubin Direct Bilirubin AST ALT Alkaline Phosphatase Total Protein Albumin Vancomycin Trough HIV 1&2 Ab/P24 Ag 4thGn Progress Note: A&P Assessment and plan (1) Atrial fibrillation with rapid ventricular response: Status: Acute Plan 66-year-old gentleman with chronic atrial fibrillation presented with pneumonia. He is to spiking here. Heart rate control is suboptimal. We are increasing the metoprolol to 50 mg twice a day. I will do gigoxin load him with 250 mcg every 6 hours x3. He should be started on digoxin 125 mcg every 48 hours after that. He can be changed to p.o. diuretics. Clinically not in heart failure. Thank you for allowing me to participate in the care of your patient. Please feel free to contact me if you have any questions. Fall Risk Details Current Medications: Current Medications Acetaminophen (Acetaminophen 325 Mg Tablet) 650 mg PO Q6H PRN PRN Reason: Pain, Mild (Pain Scale 1-3) Last Admin: 06/21/21 20:42 Dose: 650 mg Documented by: Albuterol Sulfate (Albuterol Sulfate 90 Mcg 8 Gm Inhaler) 2 puff INHALE Q4H PRN PRN Reason: shortness of breath or wheezing Balsalazide (Balsalazide Disodium 750 Mg Capsule) 2,250 mg PO TID [facility] Last Admin: 06/22/21 09:25 Dose: 2,250 mg Documented by: Docusate Sodium (Docusate Sodium 100 Mg Capsule) 100 mg PO DAILY PRN PRN Reason: Constipation Fluticasone/Vilanterol (Fluticasone/Vilanterol 200/25 Blst.W.Dev) 1 puff INHALE RDAILY [facility] Last Admin: 06/22/21 07:55 Dose: Not Given Documented by: Furosemide (Furosemide 20 Mg/2 Ml Vial) 20 mg IVPUSH DAILY [facility]; Protocol Last Admin: 06/22/21 09:24 Dose: 20 mg Documented by: Guaifenesin (Guaifenesin La 600 Mg Tab.Er.12h) 600 mg PO BID [facility] Last Admin: 06/22/21 09:25 Dose: 600 mg Documented by: Piperacillin Sod/Tazobactam (Sod 3.375 gm/ Sodium Chloride) 50 mls @ 100 mls/hr IV Q6H [facility] Last Admin: 06/22/21 09:24 Dose: 100 mls/hr Documented by: Vancomycin HCl 1,250 mg/ (Sodium Chloride) 250 mls @ 166.667 mls/hr IV Q12H [facility] Last Infusion: 06/22/21 00:12 Dose: Infused Documented by: Metoprolol Tartrate (Metoprolol Tartrate 50 Mg Tablet) 50 mg PO BID@1200,2100 [facility]; Protocol Multivitamins/Vitamin C (Multivitamin Tablet) 1 tab PO DAILY [facility] Last Admin: 06/22/21 09:25 Dose: 1 tab Documented by: Ondansetron HCl (Ondansetron Hcl 4 Mg/2 Ml Vial) 4 mg IVPUSH Q8H PRN PRN Reason: Nausea and Vomiting Pharmacy Consult (Consult Rx Vancomycin Dosing) 1 each MISCELLANE DAILY PRN PRN Reason: Consult order Sodium Chloride (0.9 % Sodium Chloride Flush 3 Ml Syringe) 3 ml IVFLUSH QSHIFT [facility] Last Admin: 06/22/21 09:24 Dose: 3 ml Documented by: Vitamin D (Cholecalciferol (Vitamin D3) 25 Mcg Tablet) 25 mcg PO DAILY [facility] Last Admin: 06/22/21 09:25 Dose: 25 mcg Documented by: Warfarin Sodium (Warfarin Sodium 2.5 Mg Tablet) 2.5 mg PO SuTuWeFrSa@1800 [facility] Last Admin: 06/21/21 18:27 Dose: 2.5 mg Documented by: Warfarin Sodium (Warfarin Sodium 5 Mg Tablet) 5 mg PO MoTh@1800 [facility] Last Admin: 06/20/21 18:21 Dose: 5 mg Documented by: Time Spent With Patient Time: Total time spent is greater than 50% in coordination of care (as documented) at patient's floor/unit and/or counseling patient: Progress Note: Quality Stroke Does the patient have a stroke diagnosis?: No Procedures Date of Service Date of Service: 06/22/21
[2021-06-22] MEDS: Metoprolol Tartrate 50 MG TABLET PO ×2 (12:10→22:37)
[2021-06-22] MEDS: vancomycin HCL 1,250 MG in 0.9 % Sodium Chloride 250 ML 166.67 MG IV (12:11)
--- NOTE | 2021-06-22 13:05 | HO.PM.IMPN ---
Subjective Subjective Date of Service: 06/22/21 Interval History: seen and examined this morning improving cough, no sob; denies chest pain or palpitations has not ambulated much; sleeping in recliner for comfort Review of Systems Review of Systems: Yes all other systems are reviewed and are negative Constitutional Constitutional: Denies chills and Denies fever(s) Cardiovascular Cardiovascular: Denies chest pain, Denies palpitations and Denies dyspnea Respiratory Respiratory: Reports cough and Denies dyspnea Endocrine Endocrine: Denies palpitations Physical Exam Vital Signs: Vital Signs: Last Vital Signs Temp 99.4 F 06/22/21 11:55 Pulse 105 H 06/22/21 11:55 Resp 20 06/22/21 11:55 BP 104/65 06/22/21 11:55 Pulse Ox 92 06/22/21 11:55 BMI result Body Mass Index 43.5 Const: General: cooperative, comfortable, alert and awake Nutritional Appearance: obese Orientation/consciousness: patient oriented x3 Resp: Other: distant breath sounds Effort & Inspection: normal respiratory effort and able to speak in complete sentences Cardio: Rate: regular rate Heart sounds: S1 normal heart sound present and S2 normal heart sound present GI: Other: soft, non-tender; ostomy present Inspection: Yes obesity Neuro: Other: grossly non-focal General: patient oriented x3 Extrem: Other: b/l leg edema Objective Data Active Medications Acetaminophen (Acetaminophen 325 Mg Tablet) 650 mg PO Q6H PRN PRN Reason: Pain, Mild (Pain Scale 1-3) Last Admin: 06/21/21 20:42 Dose: 650 mg Documented by: ROHAN Albuterol Sulfate (Albuterol Sulfate 90 Mcg 8 Gm Inhaler) 2 puff INHALE Q4H PRN PRN Reason: shortness of breath or wheezing Balsalazide (Balsalazide Disodium 750 Mg Capsule) 2,250 mg PO TID [facility] Last Admin: 06/22/21 09:25 Dose: 2,250 mg Documented by: RYLEE Docusate Sodium (Docusate Sodium 100 Mg Capsule) 100 mg PO DAILY PRN PRN Reason: Constipation Fluticasone/Vilanterol (Fluticasone/Vilanterol 200/25 Blst.W.Dev) 1 puff INHALE RDAILY [facility] Last Admin: 06/22/21 07:55 Dose: Not Given Documented by: EDITH Non-Admin Reason: Patient Refused Furosemide (Furosemide 20 Mg Tablet) 20 mg PO DAILY [facility]; Protocol Guaifenesin (Guaifenesin La 600 Mg Tab.Er.12h) 600 mg PO BID [facility] Last Admin: 06/22/21 09:25 Dose: 600 mg Documented by: RYLEE Piperacillin Sod/Tazobactam (Sod 3.375 gm/ Sodium Chloride) 50 mls @ 100 mls/hr IV Q6H [facility] Last Infusion: 06/22/21 10:46 Dose: 0 mls/hr Documented by: RYLEE Vancomycin HCl 1,250 mg/ (Sodium Chloride) 250 mls @ 166.667 mls/hr IV Q12H [facility] Last Admin: 06/22/21 12:11 Dose: 166.67 mls/hr Documented by: RYLEE Metoprolol Tartrate (Metoprolol Tartrate 50 Mg Tablet) 50 mg PO BID@1200,2100 [facility]; Protocol Last Admin: 06/22/21 12:10 Dose: 50 mg Documented by: RYLEE Multivitamins/Vitamin C (Multivitamin Tablet) 1 tab PO DAILY [facility] Last Admin: 06/22/21 09:25 Dose: 1 tab Documented by: RYLEE Ondansetron HCl (Ondansetron Hcl 4 Mg/2 Ml Vial) 4 mg IVPUSH Q8H PRN PRN Reason: Nausea and Vomiting Pharmacy Consult (Consult Rx Vancomycin Dosing) 1 each MISCELLANE DAILY PRN PRN Reason: Consult order Sodium Chloride (0.9 % Sodium Chloride Flush 3 Ml Syringe) 3 ml IVFLUSH QSHIFT [facility] Last Admin: 06/22/21 09:24 Dose: 3 ml Documented by: RYLEE Vitamin D (Cholecalciferol (Vitamin D3) 25 Mcg Tablet) 25 mcg PO DAILY [facility] Last Admin: 06/22/21 09:25 Dose: 25 mcg Documented by: RYLEE Warfarin Sodium (Warfarin Sodium 2.5 Mg Tablet) 2.5 mg PO SuTuWeFrSa@1800 [facility] Last Admin: 06/21/21 18:27 Dose: 2.5 mg Documented by: LEBRON Warfarin Sodium (Warfarin Sodium 5 Mg Tablet) 5 mg PO MoTh@1800 [facility] Last Admin: 06/20/21 18:21 Dose: 5 mg Documented by: GAVIN Labs CBC & Chem 7: 06/20/21 06:04 06/22/21 06:08 Labs: Laboratory Results - last 24 hr 06/21/21 06/21/21 06/21/21 20:59 20:59 22:54 PT INR Estim Creat Clear Calc Estimated GFR Total Bilirubin 0.5 Direct Bilirubin 0.3 AST 74 H ALT 33 Alkaline Phosphatase 71 D Total Protein 5.8 L Albumin 2.8 L Vancomycin Trough 7.1 L HIV 1&2 Ab/P24 Ag 4thGn Nonreactive 06/22/21 06/22/21 06:08 07:21 PT 35.0 H INR 3.0 H Estim Creat Clear Calc 105.6 Estimated GFR > 60 Total Bilirubin Direct Bilirubin AST ALT Alkaline Phosphatase Total Protein Albumin Vancomycin Trough HIV 1&2 Ab/P24 Ag 4thGn Assessment and Plan (1) Acute respiratory failure with hypoxia: Status: Acute (2) Sepsis: Status: Acute (3) Atrial fibrillation with rapid ventricular response: Status: Acute (4) Left lower lobe pneumonia: Status: Acute Plan 66-year-old male with various? previous medical history who presents to the hospital with complaints of a fall found to have AFib with RVR among other findings including sepsis, WAN, elevated troponin as well as pneumonia AFib with RVR. HR still increases with activity Cardizem drip off increase dose of metoprolol continue warfarin for anticoagulation, INR 3.0 monitor HR acute hypoxic respiratory failure sepsis secondary to hospital-acquired pneumonia. temperature 100.5 overnight patient with tachycardia, leukocytosis, lactic acidosis on admission initially sat 88% 2L. now low 90s on room air Given recent hospitalization will continue IV vancomycin and Zosyn, day #5 blood cultures negative to date Seen by speech, no evidence of overt aspiration acute mild HFpEF treated with IV lasix seen by cardiology, rec to change to home dose of oral lasix elevated troponin likely type 2 in the setting of AFib with RVR as well as infection trended down, creatinine stable WAN. Trending down likely prerenal in the setting of acute infection lactic acidosis secondary to acute sepsis well as dehydration trended down with IV fluids, will continue IV fluid resuscitation recent history of cholecystitis patient has no abdominal pain, guarding or rebound, no evidence of infection the gallbladder patient will be on IV antibiotics for above reasons monitor for any symptoms Crohn's disease stable will continue home medications Morbid obesity. BMI 43.6 Discussed the importance of weight management at this may be contributing to worsening of other comorbidities FABIOLA CPAP DVT prophylaxis: Warfarin Attending Dr. Trevino Patient requires continued hospitalization the patient is currently being treated with IV antibiotics for Hcap, and titrating medication for atrial fibrillation with rapid ventricular response Quality Stroke Does the patient have a stroke diagnosis?: No VTE Prior VTE?: No VTE Risk Level:: Medical - moderate - high VTE Device Contraindication: Treatment Not Indicated VTE Drug Contraindication: N/A - Med Ordered
[2021-06-22 16:15] LABS: MANUAL DIFF FLAG NO
[2021-06-22 16:17] LABS: Hematocrit 45.6 % (42.0-52.0); Hemoglobin 13.8 g/dl (14.0-18.0); Imm Gran Abs Auto 0.04 X10*3/uL (0.00-0.03); Imm Gran Pct Auto 0.5 % (0.0-0.4); Lymphocytes Absolute Auto 0.5 X10*3/uL (1.2-4.9); Lymphocytes Percent Auto 6.5 % (20-40); Mean Corpuscular HGB Conc 30.3 g/dl (31.0-36.0); Mean Corpuscular Hemoglobin 26.1 pg (27.0-33.0); Mean Corpuscular Volume 86.2 fL (80.0-98.0); Mean Platelet Volume 10.3 fL (9.4-12.4); Monocytes Absolute Auto 0.6 X10*3/uL (0.1-1.2); Monocytes Percent Auto 8.2 % (2-11); Neutrophils Absolute Auto 6.4 x10*3/uL (2.0-8.3); Neutrophils Percent Auto 84.8 % (45-73); Platelet Count 359 X10*3/uL (160-400); Red Blood Count 5.29 X10*6/uL (4.60-5.80); Red Cell Distribution Width 16.1 % (11.0-16.0); White Blood Count 7.5 X10*3/uL (4.8-10.8)
[2021-06-22 16:32] LABS: Lactic Acid 1.9 mmol/L (0.5-2.0)
[2021-06-22 16:34] LABS: Anion Gap 15 (12-20); Blood Urea Nitrogen 10 mg/dL (9-16); Calcium 8.4 mg/dL (8.4-10.2); Carbon Dioxide 29 mmol/L (22-29); Chloride 99 mmol/L (96-108); Creatinine Clr Calc Pharmacy 89.2; Estimated Glomerular Filt Rate > 60; Glucose Random 112 mg/dL (60-115); Potassium 4.2 mmol/L (3.3-5.1); Sodium 139 mmol/L (135-145)
[2021-06-22 16:48] LABS: Magnesium 1.9 mg/dL (1.6-2.6)
[2021-06-22] MEDS: Digoxin 0.5 MG/2 ML AMPUL 0.25 MG IVPUSH ×2 (17:00→22:38)
[2021-06-22] MEDS: Magnesium Sulfate/H2O 2 GM/50 ML PIGGYBACK IV (17:02)
--- NOTE | 2021-06-22 18:58 | PM.EVENT ---
Event Note Date of Service: 06/22/21 Event Note: I evaluated the patient personally around 18:30. He has been stable for most of the day until around 15:00 when he started to feel chills but his temperature was stable at that point. He broke ER around 330 p.m. of 103 and received Tylenol and Toradol while his heart rate has been around 140s for most of the day. Evaluated by Cardiology who started him on digoxin but with no efficacy as the heart rate continue to run in 150s to 170s. I checked with the nurse around 615 to recheck his vitals and she reported temperature above 104 with heart rate elevated to 170s upon exertion. I went to see the patient was sitting in his chair but looking very fatigued. He responded to my voice and answered my questions but was very slow and could not know where easy exactly or what is the day. He was able to recognize himself and as he is in the hospital next to his . Will placed multiple ice packs on him trying to bring his temperature down. No clear source of infection identified. The patient on IV antibiotics which might be drug induced fever. Will send lactic acid and procalcitonin To get ICU evaluation for possible higher level of care given his altered mentation To check viral panel
[2021-06-22] MEDS: Ketorolac Tromethamine 30 MG/ML VIAL IVPUSH (19:24)
[2021-06-22] MEDS: Acetaminophen 325 MG TABLET 975 MG PO (19:27)
[2021-06-22 19:45] LABS: Lactic Acid 1.2 mmol/L (0.5-2.0)
--- NOTE | 2021-06-22 20:10 | PC.NURSE ---
Pt spiked fever at 15:29. Temperature was 103.4. HEALTH AND FITNESS PROFESSOR Nancy Ring notified and she put in an ID consult. She also put in an order for UA, repeat cultures, and lactic acid. Bp 145/84 at 15:29. Pt received IV digoxin. Dr. Trevino came up to see the patient at 16:30. Temperature did spike to 104.9. Patient received icepacks bilateral to the neck and legs. Blankets were also removed from patient. ICU came up to see pt and confirmed that pt would stay on the floor since bp was stable. Pt also received Tylenol.
[2021-06-22 20:18] LABS: Procalcitonin 0.86 ng/mL
[2021-06-22 21:07] LABS: Appearance Urine CLEAR; Color Urine YELLOW; Glucose Urine UA NEG (NEG); Leukocyte Esterase Urine NEG (NEG); Nitrite Urine NEG (NEG); PH 6.5 (5.0-8.0); Urine Blood NEG (NEG); Urine Ketones NEG (NEG); Urine Protein TRACE MG/DL (NEG-TRACE)
[2021-06-22 21:12] LABS: Hyaline Casts Urine 0-2 /LPF; RBC Urine 0 /HPF (0); Squamous Epithelial Cell Urine 1+ /LPF; WBC Urine 0-2 /HPF (0-4)
[2021-06-22 21:48] LABS: Vancomycin Trough 13.9 mcg/mL (10.0-20.0)
--- NOTE | 2021-06-22 23:37 | PC.NURSE ---
Patient started of shift with a temperature of 104.9, increased respirations, and heart rate fluctuating between 140s-200s. Patient was also noted to have altered mental status. Overnight hospitalist, day hospitalist, and ICU HYDRAULIC OIL TOOL OPERATOR examined patient. Tylenol and Toradol were given. He was then put on Q1H vitals and a cooling blanket was placed on patient. Temperature gradually came down in between checks and overnight hospitalist was informed each time. At 22:42 cooling blanket removed and ending temperature was 98.7. Patient 's work of breathing minimized and is back to his baseline when it comes to being alert and oriented. Overnight hospitalist notified of changes, will continue to monitor.
[2021-06-23] VITALS (10 sets, daily range): BP systolic 83–149; BP diastolic 42–89; PULSE 67–116; RESP 16–21; TEMP 36.6–38.3; O2SAT 94–97
[2021-06-23 00:19] LABS: COVID-19 Test Negative (Negative)
[2021-06-23] MEDS: Acetaminophen 325 MG TABLET 650 MG PO ×2 (02:38→14:55)
[2021-06-23] MEDS: Digoxin 0.5 MG/2 ML AMPUL 0.25 MG IVPUSH (05:02)
--- NOTE | 2021-06-23 06:26 | PM.EVENT ---
Event Note Date of Service: 06/23/21 Event Note: on my arrival at 7 pm pt was documented to have a temp of 104.9. tylenol was not given yet. We started pt on cooling blanket, gave 975 of tylenol. Pt temp, HR and breathing rate improved over the course of the night. His zosyn and vanc were held due to possible drug induced hyperthermia. LA was within normal range Around 6am this morning, upon reviewing the chart, i discovered that pt was documented to have a BP of 83/42 around 3:30 am. I was not informed of the BP overnight. Will give sepsis fluid, obtain LA, stat CBC, CMP, BNP and troponin
[2021-06-23 06:40] LABS: INTERNATIONAL NORM RATIO 2.6 (0.9-1.1); Prothrombin Time 30.5 SEC (9.9-13.0)
[2021-06-23 06:58] LABS: Anion Gap 12 (12-20); Blood Urea Nitrogen 14 mg/dL (9-16); Calcium 8.2 mg/dL (8.4-10.2); Carbon Dioxide 31 mmol/L (22-29); Chloride 101 mmol/L (96-108); Creatinine Clr Calc Pharmacy 83.9; Estimated Glomerular Filt Rate > 60; Glucose Random 116 mg/dL (60-115); Potassium 4.3 mmol/L (3.3-5.1); Sodium 140 mmol/L (135-145)
[2021-06-23 07:26] LABS: MANUAL DIFF FLAG NO
[2021-06-23 07:40] LABS: Basophils Percent Auto 0.1 % (0-2); Hematocrit 45.3 % (42.0-52.0); Hemoglobin 13.3 g/dl (14.0-18.0); Imm Gran Abs Auto 0.08 X10*3/uL (0.00-0.03); Imm Gran Pct Auto 1.1 % (0.0-0.4); Lymphocytes Absolute Auto 0.3 X10*3/uL (1.2-4.9); Mean Corpuscular HGB Conc 29.4 g/dl (31.0-36.0); Mean Corpuscular Hemoglobin 25.3 pg (27.0-33.0); Mean Corpuscular Volume 86.3 fL (80.0-98.0); Mean Platelet Volume 10.1 fL (9.4-12.4); Monocytes Absolute Auto 0.4 X10*3/uL (0.1-1.2); Neutrophils Absolute Auto 6.2 x10*3/uL (2.0-8.3); Neutrophils Percent Auto 88.8 % (45-73); Platelet Count 298 X10*3/uL (160-400); Red Blood Count 5.25 X10*6/uL (4.60-5.80); Red Cell Distribution Width 16.6 % (11.0-16.0)
--- NOTE | 2021-06-23 07:41 | HE.PHANOTE ---
Zosyn currently on hold for drug induced fever.
[2021-06-23 07:42] LABS: Lactic Acid 1.1 mmol/L (0.5-2.0)
[2021-06-23 08:08] LABS: B Type Natriuretic Peptide 121 pg/mL (<100); Troponin-I High Sensitivity 7.3 ng/L (<3.5-35.0)
--- NOTE | 2021-06-23 09:04 | HE.PHANOTE ---
RE CASPO Caspofungin Okay per Dr Powell empiric therapy. Thanks Melvin
--- NOTE | 2021-06-23 09:10 | P.PNIM_ITS ---
Subjective Subjective Date of Service: 06/23/21 Interval History: seen and examined this morning fever, heart rate have improved awake and alert feeling a little chilly earlier but better now no abdominal pain or vomiting, normal output in ostomy cough improving, no shortness of breath, palpitations or chest pain Review of Systems Review of Systems: Yes all other systems are reviewed and are negative Constitutional Constitutional: Reports chills and Denies fever(s) Cardiovascular Cardiovascular: Denies chest pain, Denies palpitations and Denies dyspnea Respiratory Respiratory: Reports cough and Denies dyspnea Gastrointestinal Gastrointestinal: Denies abdominal pain, Denies diarrhea, Denies nausea and Denies vomiting Endocrine Endocrine: Denies palpitations Physical Exam Vital Signs: Vital Signs: Last Vital Signs Temp 99.6 F 06/23/21 08:00 Pulse 97 06/23/21 08:00 Resp 18 06/23/21 08:00 BP 102/62 06/23/21 08:00 Pulse Ox 95 06/23/21 08:00 BMI result Body Mass Index 43.5 Const: General: comfortable, alert and awake Nutritional Appearance: obese Orientation/consciousness: patient oriented x3 Resp: Other: diminished breath sounds; no appreciable wheezes or rales Effort & Inspection: normal respiratory effort and able to speak in complete sentences Cardio: Rate: regular rate Rhythm: abnormal rhythm irregularly irregular GI: Other: ostomy present Inspection: No distended and Yes obesity Palpation (GI): Soft to palpation and nontender Neuro: General: patient oriented x3 and CN's II-XI intact bilaterally Extrem: Other: 1+ leg edema Objective Data Active Medications Acetaminophen (Acetaminophen 325 Mg Tablet) 650 mg PO Q6H PRN PRN Reason: Pain, Mild (Pain Scale 1-3) Last Admin: 06/23/21 02:38 Dose: 650 mg Documented by: ROHAN Albuterol Sulfate (Albuterol Sulfate 90 Mcg 8 Gm Inhaler) 2 puff INHALE Q4H PRN PRN Reason: shortness of breath or wheezing Balsalazide (Balsalazide Disodium 750 Mg Capsule) 2,250 mg PO TID [facility] Last Admin: 06/22/21 22:37 Dose: 2,250 mg Documented by: ROHAN Docusate Sodium (Docusate Sodium 100 Mg Capsule) 100 mg PO DAILY PRN PRN Reason: Constipation Furosemide (Furosemide 20 Mg Tablet) 20 mg PO DAILY [facility]; Protocol Guaifenesin (Guaifenesin La 600 Mg Tab.Er.12h) 600 mg PO BID [facility] Last Admin: 06/22/21 22:37 Dose: 600 mg Documented by: ROHAN Piperacillin Sod/Tazobactam (Sod 3.375 gm/ Sodium Chloride) 50 mls @ 100 mls/hr IV Q6H [facility] Last Admin: 06/23/21 02:06 Dose: Not Given Documented by: ROHAN Non-Admin Reason: Medication o hold per overnight Vancomycin HCl 1,250 mg/ (Sodium Chloride) 250 mls @ 166.667 mls/hr IV Q12H [facility] Last Admin: 06/22/21 23:36 Dose: Not Given Documented by: ROHAN Non-Admin Reason: Medication being held per Caspofungin 70 mg/ Sodium (Chloride) 250 mls @ 250 mls/hr IV ONCE ONE Stop: 06/23/21 09:59 Caspofungin 50 mg/ Sodium (Chloride) 250 mls @ 250 mls/hr IV Q24H [facility] Metoprolol Tartrate (Metoprolol Tartrate 50 Mg Tablet) 50 mg PO BID@1200,2100 [facility]; Protocol Last Admin: 06/22/21 22:37 Dose: 50 mg Documented by: ROHAN Multivitamins/Vitamin C (Multivitamin Tablet) 1 tab PO DAILY [facility] Last Admin: 06/22/21 09:25 Dose: 1 tab Documented by: RYLEE Ondansetron HCl (Ondansetron Hcl 4 Mg/2 Ml Vial) 4 mg IVPUSH Q8H PRN PRN Reason: Nausea and Vomiting Pharmacy Consult (Consult Rx Vancomycin Dosing) 1 each MISCELLANE DAILY PRN PRN Reason: Consult order Sodium Chloride (0.9 % Sodium Chloride Flush 3 Ml Syringe) 3 ml IVFLUSH QSHIFT [facility] Last Admin: 06/22/21 22:38 Dose: 3 ml Documented by: ROHAN Vitamin D (Cholecalciferol (Vitamin D3) 25 Mcg Tablet) 25 mcg PO DAILY [facility] Last Admin: 06/22/21 09:25 Dose: 25 mcg Documented by: RYLEE Warfarin Sodium (Warfarin Sodium 2.5 Mg Tablet) 2.5 mg PO SuTuWeFrSa@1800 [facility] Last Admin: 06/21/21 18:27 Dose: 2.5 mg Documented by: LEBRON Warfarin Sodium (Warfarin Sodium 5 Mg Tablet) 5 mg PO MoTh@1800 [facility] Last Admin: 06/20/21 18:21 Dose: 5 mg Documented by: GAVIN Labs CBC & Chem 7: 06/23/21 07:20 06/23/21 06:00 Labs: Laboratory Results - last 24 hr 06/22/21 06/22/21 06/22/21 16:07 16:07 16:07 MCV 86.2 MCH 26.1 L MCHC 30.3 L RDW 16.1 H Plt Count 359 D MPV 10.3 Immature Gran % (Auto) 0.5 H Neut % (Auto) 84.8 H Lymph % (Auto) 6.5 L [place] % (Auto) 8.2 Eos % (Auto) 0.0 Baso % (Auto) 0.0 Lymph # (Auto) 0.5 L [place] # (Auto) 0.6 Eos # (Auto) 0.0 Baso # (Auto) 0.0 Abs Immat Gran (auto) 0.04 H Absolute Neuts (auto) 6.4 Absolute Nucleated RBC 0.000 Nucleated RBC % (auto) 0.0 PT INR Anion Gap 15 Estim Creat Clear Calc 89.2 Estimated GFR > 60 Random Glucose 112 Lactic Acid 1.9 Calcium 8.4 Magnesium 1.9 B-Natriuretic Peptide Procalcitonin Urine Color Urine Appearance Urine pH Ur Specific [place] Urine Protein Urine Glucose (UA) Urine Ketones Urine Blood Urine Nitrite Ur Leukocyte Esterase Urine RBC Urine WBC Ur Squamous Epith Cells Urine Bacteria Hyaline Casts Vancomycin Trough COVID-19 ([facility]ITHA) COVID-19 Clin Com 06/22/21 06/22/21 06/22/21 19:23 19:23 21:02 MCV MCH MCHC RDW Plt Count MPV Immature Gran % (Auto) Neut % (Auto) Lymph % (Auto) [place] % (Auto) Eos % (Auto) Baso % (Auto) Lymph # (Auto) [place] # (Auto) Eos # (Auto) Baso # (Auto) Abs Immat Gran (auto) Absolute Neuts (auto) Absolute Nucleated RBC Nucleated RBC % (auto) PT INR Anion Gap Estim Creat Clear Calc Estimated GFR Random Glucose Lactic Acid 1.2 Calcium Magnesium B-Natriuretic Peptide Procalcitonin 0.86 Urine Color YELLOW Urine Appearance CLEAR Urine pH 6.5 Ur Specific [place] 1.020 Urine Protein TRACE Urine Glucose (UA) NEG Urine Ketones NEG Urine Blood NEG Urine Nitrite NEG Ur Leukocyte Esterase NEG Urine RBC 0 Urine WBC 0-2 Ur Squamous Epith Cells 1+ Urine Bacteria NONE Hyaline Casts 0-2 Vancomycin Trough COVID-19 ([facility]ITHA) COVID-19 Clin Com 06/22/21 06/22/21 06/23/21 21:10 23:22 06:00 MCV MCH MCHC RDW Plt Count MPV Immature Gran % (Auto) Neut % (Auto) Lymph % (Auto) [place] % (Auto) Eos % (Auto) Baso % (Auto) Lymph # (Auto) [place] # (Auto) Eos # (Auto) Baso # (Auto) Abs Immat Gran (auto) Absolute Neuts (auto) Absolute Nucleated RBC Nucleated RBC % (auto) PT INR Anion Gap 12 Estim Creat Clear Calc 83.9 Estimated GFR > 60 Random Glucose 116 H Lactic Acid Calcium 8.2 L Magnesium B-Natriuretic Peptide Procalcitonin Urine Color Urine Appearance Urine pH Ur Specific [place] Urine Protein Urine Glucose (UA) Urine Ketones Urine Blood Urine Nitrite Ur Leukocyte Esterase Urine RBC Urine WBC Ur Squamous Epith Cells Urine Bacteria Hyaline Casts Vancomycin Trough 13.9 COVID-19 ([facility]ALITHA) Negative COVID-19 Clin Com See Note 06/23/21 06/23/21 06/23/21 06:00 07:20 07:20 MCV MCH MCHC RDW Plt Count MPV Immature Gran % (Auto) Neut % (Auto) Lymph % (Auto) [place] % (Auto) Eos % (Auto) Baso % (Auto) Lymph # (Auto) [place] # (Auto) Eos # (Auto) Baso # (Auto) Abs Immat Gran (auto) Absolute Neuts (auto) Absolute Nucleated RBC Nucleated RBC % (auto) PT 30.5 H INR 2.6 H Anion Gap Estim Creat Clear Calc Estimated GFR Random Glucose Lactic Acid 1.1 Calcium Magnesium B-Natriuretic Peptide 121 H Procalcitonin Urine Color Urine Appearance Urine pH Ur Specific [place] Urine Protein Urine Glucose (UA) Urine Ketones Urine Blood Urine Nitrite Ur Leukocyte Esterase Urine RBC Urine WBC Ur Squamous Epith Cells Urine Bacteria Hyaline Casts Vancomycin Trough COVID-19 ([facility]ITHA) COVID-19 Clin Com 06/23/21 07:20 MCV 86.3 MCH 25.3 L MCHC 29.4 L RDW 16.6 H Plt Count 298 MPV 10.1 Immature Gran % (Auto) 1.1 H Neut % (Auto) 88.8 H Lymph % (Auto) 4.0 L [place] % (Auto) 6.0 Eos % (Auto) 0.0 Baso % (Auto) 0.1 Lymph # (Auto) 0.3 L [place] # (Auto) 0.4 Eos # (Auto) 0.0 Baso # (Auto) 0.0 Abs Immat Gran (auto) 0.08 H Absolute Neuts (auto) 6.2 Absolute Nucleated RBC 0.000 Nucleated RBC % (auto) 0.0 PT INR Anion Gap Estim Creat Clear Calc Estimated GFR Random Glucose Lactic Acid Calcium Magnesium B-Natriuretic Peptide Procalcitonin Urine Color Urine Appearance Urine pH Ur Specific [place] Urine Protein Urine Glucose (UA) Urine Ketones Urine Blood Urine Nitrite Ur Leukocyte Esterase Urine RBC Urine WBC Ur Squamous Epith Cells Urine Bacteria Hyaline Casts Vancomycin Trough COVID-19 ([facility]A) COVID-19 Clin Com Microbiology Microbiology Results: Microbiology 06/17/21 19:13 Blood Culture - Final Blood - Venous No growth after 5 days. 06/17/21 19:13 Blood Culture - Final Blood - Venous No growth after 5 days. Assessment and Plan (1) Acute respiratory failure with hypoxia: Status: Acute (2) Sepsis: Status: Acute (3) Atrial fibrillation with rapid ventricular response: Status: Acute (4) Left lower lobe pneumonia: Status: Acute Plan 66-year-old male with various? previous medical history who presents to the hospital with complaints of a fall found to have AFib with RVR among other findings including sepsis, WAN, elevated troponin as well as pneumonia AFib with RVR. HR up to 170s overnight - likely r/t to high fever s/p Cardizem drip off dose of metoprolol increased loaded with digoxin continue warfarin for anticoagulation, INR 2.6 monitor HR sepsis secondary to hospital-acquired pneumonia/acute hypoxic respiratory failure patient with tachycardia, leukocytosis, lactic acidosis on admission. leukocytosis has resolved but pt spiked fever up to 104 will continue IV vancomycin and Zosyn, day #6 Seen by speech, no evidence of overt aspiration repeat lactic negative blood cultures negative to date, repeat cultures pending UA negative RPP pending ID consult pending, d/w ID will start caspofungin; further workup pending full I D consult BP dipped once overnight, receiving IVF based on ideal body wt sepsis focused exam completed seen by ICU but no note documented acute mild HFpEF received one dose IV lasix, seen by cardiology, did not feel he was in heart failure. rec to change to home dose of oral lasix lasix on hold today as pt receiving IVF as above BNP up from 38 to 121 monitor fluid status closely as he is receiving IVF elevated troponin likely type 2 in the setting of AFib with RVR as well as infection trended down, creatinine stable repeat trop today lower then on admission WAN. SCr has trended down from baseline likely prerenal in the setting of acute infection lactic acidosis secondary to acute sepsis well as dehydration trended down with IV fluids, will continue IV fluid resuscitation repeat lactic negative recent history of cholecystitis patient has no abdominal pain, guarding or rebound, no evidence of infection the gallbladder patient will be on IV antibiotics for above reasons monitor for any symptoms Crohn's disease stable will continue home medications Morbid obesity. BMI 43.6 Discussed the importance of weight management, weight contributing to worsening of other comorbidities FABIOLA CPAP DVT prophylaxis: Warfarin Attending Dr. Trevino Patient requires continued hospitalization the patient is currently being treated with IV antibiotics for Hcap, and titrating medication for atrial fibrillation with rapid ventricular response, high fever and ID evaluation Quality Stroke Does the patient have a stroke diagnosis?: No VTE Prior VTE?: No VTE Risk Level:: Medical - moderate - high VTE Device Contraindication: Treatment Not Indicated VTE Drug Contraindication: N/A - Med Ordered
[2021-06-23] MEDS: Balsalazide Disodium 750 MG CAPSULE 2250 MG PO ×3 (09:32→21:03)
[2021-06-23] MEDS: 0.9 % Sodium Chloride Flush 3 ML SYRINGE IVFLUSH ×2 (09:32→15:54)
[2021-06-23] MEDS: guaiFENesin LA 600 MG TAB.ER.12H PO ×2 (09:32→21:02)
[2021-06-23] MEDS: Digoxin 0.125 MG TABLET PO (09:32)
[2021-06-23] MEDS: Multivitamin TABLET 1 TAB PO (09:37)
[2021-06-23] MEDS: Piperacillin Sodium/Tazobactam 3.375 GM in 0.9 % Sodium Chloride 50 ML IV ×3 (09:37→21:02)
[2021-06-23] MEDS: Caspofungin Acetate 70 MG in 0.9 % Sodium Chloride 250 ML 250 MG IV (09:38)
[2021-06-23] MEDS: Cholecalciferol (Vitamin D3) 25 MCG TABLET PO (09:40)
[2021-06-23 10:13] LABS: Vancomycin Random 6.9 mcg/mL (15-20)
--- NOTE | 2021-06-23 10:43 | HE.PHANOTE ---
RE Floyd Patient trough was 6.9 today. They only received one dose. SCr increased from 0.93 to 1.17 in roughly 24 hours. Patient spiking temps and started on caspo. Dose from 2300 on 06/22 was held due to possibility of drug induced fever. I lowered the dose (would have still been in range to a more conservative dose) to 1000mg q12h, AUC 425, trough 12.6. I would like to see a true trough to determine if 1250mg q12h is the right dose. Random trough scheduled for 06/24 @0900 Thanks Melvin
[2021-06-23] MEDS: vancomycin HCL 1,000 MG in 0.9 % Sodium Chloride 250 ML 270 MG IV ×2 (12:20→22:45)
[2021-06-23] MEDS: Metoprolol Tartrate 50 MG TABLET PO ×2 (12:38→21:02)
[2021-06-23 14:11] LABS: Adenovirus PCR Not Detected (Not Detect.); Bordetella parapertussis PCR Not Detected (Not Detect.); Bordetella pertussis PCR Not Detected (Not Detect.); Chlamydia pneumoniae PCR Not Detected (Not Detect.); Coronavirus 229E PCR Not Detected (Not Detect.); Coronavirus HKU1 PCR Not Detected (Not Detect.); Coronavirus NL63 PCR Not Detected (Not Detect.); Coronavirus OC43 PCR Not Detected (Not Detect.); Human metapneumovirus PCR Not Detected (Not Detect.); Influenza A PCR Not Detected (Not Detect.); Influenza B PCR Not Detected (Not Detect.); Mycoplasma pneumoniae PCR Not Detected (Not Detect.); Parainfluenza 1 PCR Not Detected (Not Detect.); Parainfluenza 2 PCR Not Detected (Not Detect.); Parainfluenza 3 PCR Not Detected (Not Detect.); Parainfluenza 4 PCR Not Detected (Not Detect.); RSV PCR Not Detected (Not Detect.); Rhino/Enterovirus PCR Not Detected (Not Detect.); SARS-CoV-2 PCR Not Detected (Not Detect.)
[2021-06-23] MEDS: Warfarin Sodium 2.5 MG TABLET PO (18:39)
[2021-06-23] MEDS: Throat Lozenge, Medicated LOZENGE 1 LOZENGE MUCOUS MEM (21:02)
[2021-06-24] MEDS: 0.9 % Sodium Chloride Flush 3 ML SYRINGE IVFLUSH ×4 (02:56→20:00)
[2021-06-24] MEDS: Piperacillin Sodium/Tazobactam 3.375 GM in 0.9 % Sodium Chloride 50 ML IV ×2 (02:57→09:40)
[2021-06-24 03:15] VITALS: BP 125/64; PULSE 99; RESP 18; TEMP 36.6; O2SAT 94
[2021-06-24 04:00] LABS: ~HepC Num1 0.16 S/CO (0.00-0.79); ~Hepatitis C Antibody Nonreactive (Nonreactive)
[2021-06-24 04:03] LABS: HBS Num1 0.22 mIU/mL (0-7.99); HBc Num1 0.16 S/CO (0.00-0.79); HBsAGNum1 0.23 S/CO (0.00-0.99); Hepatitis B Core Antibody Nonreactive (Nonreactive); Hepatitis B Surface Antigen Negative (Negative); ~Hepatitis B Surface Antibody NONREACTIVE (Nonreactive)
[2021-06-24 08:00] VITALS: BP 105/64; PULSE 100; RESP 18; TEMP 36.3; O2SAT 96
[2021-06-24 09:01] LABS: MANUAL DIFF FLAG NO
[2021-06-24 09:06] LABS: Basophils Percent Auto 0.2 % (0-2); Hematocrit 41.8 % (42.0-52.0); Hemoglobin 12.1 g/dl (14.0-18.0); Imm Gran Abs Auto 0.08 X10*3/uL (0.00-0.03); Imm Gran Pct Auto 1.3 % (0.0-0.4); Lymphocytes Absolute Auto 0.8 X10*3/uL (1.2-4.9); Lymphocytes Percent Auto 13.7 % (20-40); Mean Corpuscular HGB Conc 28.9 g/dl (31.0-36.0); Mean Corpuscular Hemoglobin 25.4 pg (27.0-33.0); Mean Corpuscular Volume 87.8 fL (80.0-98.0); Mean Platelet Volume 10.1 fL (9.4-12.4); Monocytes Absolute Auto 0.6 X10*3/uL (0.1-1.2); Monocytes Percent Auto 9.7 % (2-11); Neutrophils Absolute Auto 4.5 x10*3/uL (2.0-8.3); Neutrophils Percent Auto 75.1 % (45-73); Platelet Count 242 X10*3/uL (160-400); Red Blood Count 4.76 X10*6/uL (4.60-5.80); Red Cell Distribution Width 16.5 % (11.0-16.0)
[2021-06-24 09:11] LABS: INTERNATIONAL NORM RATIO 2.4 (0.9-1.1); Prothrombin Time 27.3 SEC (9.9-13.0)
[2021-06-24 09:26] LABS: Anion Gap 10 (12-20); Blood Urea Nitrogen 14 mg/dL (9-16); Calcium 7.9 mg/dL (8.4-10.2); Carbon Dioxide 31 mmol/L (22-29); Chloride 102 mmol/L (96-108); Creatinine Clr Calc Pharmacy 93.5; Estimated Glomerular Filt Rate > 60; Glucose Random 88 mg/dL (60-115); Potassium 4.1 mmol/L (3.3-5.1); Sodium 139 mmol/L (135-145)
[2021-06-24] MEDS: Caspofungin Acetate 50 MG in 0.9 % Sodium Chloride 250 ML 250 MG IV (09:44)
[2021-06-24] MEDS: Balsalazide Disodium 750 MG CAPSULE 2250 MG PO ×3 (09:44→19:59)
[2021-06-24] MEDS: guaiFENesin LA 600 MG TAB.ER.12H PO ×2 (09:44→19:59)
--- NOTE | 2021-06-24 09:44 | PM.PNCARD ---
Subjective Subjective Date of Service: 06/24/21 Principal diagnosis: LLL PNA, AF RVR Interval history: Patient states that he feels fine. From the cardiac standpoint, denies any angina. He walked to the bathroom but did not feel any shortness of breath. There is some leg swelling. No palpitations or syncopal episodes. Review of Systems Review of Systems Yes all other systems are reviewed and are negative Constitutional: Reports as per HPI Eyes: Reports as per HPI Reports as per HPI Cardiovascular: Reports as per HPI, Denies acrocyanosis, Denies cool extremities, Denies chest pain, Denies leg edema, Denies lightheadedness, Denies palpitations and Denies dyspnea Respiratory: Reports as per HPI, Reports no additional respiratory complaints and Denies dyspnea Gastrointestinal: Reports as per HPI and Reports no additional gastrointestinal complaints Genitourinary: Reports no additional male genitourinary complaints and Reports as per HPI Musculoskeletal: Reports no additional musculoskeletal complaints and Reports as per HPI Skin/Breast: Reports system reviewed and no additional complaints, except as docu Reports system reviewed and no additional complaints, except as documented and Reports as per HPI Psychiatric: Reports no additional psychiatric complaints and Reports as per HPI Endocrine: Reports no additional endocrine complaints, Reports as per HPI and Denies palpitations Hematologic/Lymphatic: Reports no additional hematologic/lymphatic complaints and Reports as per HPI Allergic/Immunologic: Reports no additional allergic/immunologic complaints and Reports as per HPI Physical Exam Vital Signs: Last Vital Signs Temp 97.4 F 06/24/21 08:00 Pulse 100 06/24/21 08:00 Resp 18 06/24/21 08:00 BP 105/64 06/24/21 08:00 Pulse Ox 96 06/24/21 08:00 BMI result Body Mass Index 43.5 Const General: comfortable HEENT Other: Unremarkable Head: Yes normal to inspection Ears: external ears normal General nose exam: Normal external nose present Face and sinus: Yes normal facial exam Mouth: oropharynx normal Neck Neck: Yes normal visual inspection Chest Chest palpation & inspection: normal inspection of the chest Resp Other: scattered wheeze Cardio Palpation: normal PMI Heart sounds: S1 normal heart sound present, S2 normal heart sound present, no gallops, no murmurs and no rubs GI Palpation (GI): Soft to palpation Back/Spine/Pelvis Other: unremarkable Skin General skin exam: no rashes or lesions noted Neuro Cognition (Neuro): normal cognition Extrem Other: 2+ edema; prominent veins. Psych Mental Status: mental status grossly normal Objective Labs and Meds Result diagrams: 06/24/21 08:50 06/24/21 08:50 Lab results: Laboratory Results - last 24 hr 06/21/21 06/23/21 06/23/21 22:54 09:14 09:47 WBC RBC Hgb Hct MCV MCH MCHC RDW Plt Count MPV Immature Gran % (Auto) Neut % (Auto) Lymph % (Auto) [place] % (Auto) Eos % (Auto) Baso % (Auto) Lymph # (Auto) [place] # (Auto) Eos # (Auto) Baso # (Auto) Abs Immat Gran (auto) Absolute Neuts (auto) Absolute Nucleated RBC Nucleated RBC % (auto) PT INR Sodium Potassium Chloride Carbon Dioxide Anion Gap BUN Creatinine Estim Creat Clear Calc Estimated GFR Random Glucose Calcium Random Vancomycin 6.9 L Respiratory Panel Lindsay See Note Adenovirus (Rapid PCR) Not Detected B.pert (TEM-PCR) Not Detected B.parapertussis DNA PCR Not Detected C. pneumoniae DNA (PCR) Not Detected Coronavirus OC43 (PCR) Not Detected Coronavirus HKU1 (PCR) Not Detected Coronavirus 229E (PCR) Not Detected Coronavirus NL63 (PCR) Not Detected Hep Bs Antigen Negative Hep Bs Antibody NONREACTIVE Hep B Core Total Ab Nonreactive Hepatitis C Ab (EIA) Nonreactive Human Metapneumovir PCR Not Detected Influenza A (RT-PCR) Not Detected Influenza B (RT-PCR) Not Detected M. pneumoniae (PCR) Not Detected Parainfluenza 1 (PCR) Not Detected Parainfluenza 2 (PCR) Not Detected Parainfluenza 3 (PCR) Not Detected Parainfluenza 4 (PCR) Not Detected RSV (PCR) Not Detected Entero/Rhino (PCR) Not Detected SARS-CoV-2 RNA (RT-PCR) Not Detected 06/24/21 06/24/21 06/24/21 08:50 08:50 08:50 WBC 6.0 RBC 4.76 Hgb 12.1 L Hct 41.8 L MCV 87.8 MCH 25.4 L MCHC 28.9 L RDW 16.5 H Plt Count 242 MPV 10.1 Immature Gran % (Auto) 1.3 H Neut % (Auto) 75.1 H Lymph % (Auto) 13.7 L [place] % (Auto) 9.7 Eos % (Auto) 0.0 Baso % (Auto) 0.2 Lymph # (Auto) 0.8 L [place] # (Auto) 0.6 Eos # (Auto) 0.0 Baso # (Auto) 0.0 Abs Immat Gran (auto) 0.08 H Absolute Neuts (auto) 4.5 Absolute Nucleated RBC 0.000 Nucleated RBC % (auto) 0.0 PT 27.3 H INR 2.4 H Sodium 139 Potassium 4.1 Chloride 102 Carbon Dioxide 31 H Anion Gap 10 L BUN 14 Creatinine 1.05 Estim Creat Clear Calc 93.5 Estimated GFR > 60 Random Glucose 88 Calcium 7.9 L Random Vancomycin Respiratory Panel Lindsay Adenovirus (Rapid PCR) B.pert (TEM-PCR) B.parapertussis DNA PCR C. pneumoniae DNA (PCR) Coronavirus OC43 (PCR) Coronavirus HKU1 (PCR) Coronavirus 229E (PCR) Coronavirus NL63 (PCR) Hep Bs Antigen Hep Bs Antibody Hep B Core Total Ab Hepatitis C Ab (EIA) Human Metapneumovir PCR Influenza A (RT-PCR) Influenza B (RT-PCR) M. pneumoniae (PCR) Parainfluenza 1 (PCR) Parainfluenza 2 (PCR) Parainfluenza 3 (PCR) Parainfluenza 4 (PCR) RSV (PCR) Entero/Rhino (PCR) SARS-CoV-2 RNA (RT-PCR) Progress Note: A&P Assessment and plan (1) Atrial fibrillation with rapid ventricular response: Status: Acute (2) Acute respiratory failure with hypoxia: Status: Acute (3) Left lower lobe pneumonia: Status: Acute (4) Non-STEMI (non-ST elevated myocardial infarction): Status: Acute Plan With regard atrial fibrillation, his heart rate is about 100-105/min on telemetry. Most likely driven by the underlying pneumonia. Currently on beta-blockers. It seems that digoxin has been added. At this time okay to continue. No further changes needed. Continue with anticoagulation. Echocardiogram with preserved LVEF, 60-65% with moderately enlarged left atrium but otherwise unremarkable. Myocardial perfusion imaging study from last year showed normal perfusion. Elevated troponins are most likely from demand. He has no clear symptoms at this time and hence will hold off on further workup. Fall Risk Details Current Medications: Current Medications Acetaminophen (Acetaminophen 325 Mg Tablet) 650 mg PO Q6H PRN PRN Reason: Pain, Mild (Pain Scale 1-3) Last Admin: 06/23/21 14:55 Dose: 650 mg Documented by: Albuterol Sulfate (Albuterol Sulfate 90 Mcg 8 Gm Inhaler) 2 puff INHALE Q4H PRN PRN Reason: shortness of breath or wheezing Balsalazide (Balsalazide Disodium 750 Mg Capsule) 2,250 mg PO TID [facility] Last Admin: 06/23/21 21:03 Dose: 2,250 mg Documented by: Benzocaine (Throat Lozenge, Medicated Lozenge) 1 lozenge MUCOUS MEM Q2H PRN PRN Reason: Sore Throat Last Admin: 06/23/21 21:02 Dose: 1 lozenge Documented by: Digoxin (Digoxin 0.125 Mg Tablet) 0.125 mg PO Q2D [facility] Last Admin: 06/23/21 09:32 Dose: 0.125 mg Documented by: Docusate Sodium (Docusate Sodium 100 Mg Capsule) 100 mg PO DAILY PRN PRN Reason: Constipation Furosemide (Furosemide 20 Mg Tablet) 20 mg PO DAILY [facility]; Protocol Last Admin: 06/23/21 09:28 Dose: Not Given Documented by: Guaifenesin (Guaifenesin La 600 Mg Tab.Er.12h) 600 mg PO BID [facility] Last Admin: 06/23/21 21:02 Dose: 600 mg Documented by: Piperacillin Sod/Tazobactam (Sod 3.375 gm/ Sodium Chloride) 50 mls @ 100 mls/hr IV Q6H [facility] Last Infusion: 06/24/21 03:37 Dose: Infused Documented by: Caspofungin 50 mg/ Sodium (Chloride) 250 mls @ 250 mls/hr IV Q24H [facility] Vancomycin HCl 1,000 mg/ (Sodium Chloride) 270 mls @ 270 mls/hr IV Q12H [facility] Last Infusion: 06/24/21 02:57 Dose: Infused Documented by: Metoprolol Tartrate (Metoprolol Tartrate 50 Mg Tablet) 50 mg PO BID@1200,2100 [facility]; Protocol Last Admin: 06/23/21 21:02 Dose: 50 mg Documented by: Multivitamins/Vitamin C (Multivitamin Tablet) 1 tab PO DAILY [facility] Last Admin: 06/23/21 09:37 Dose: 1 tab Documented by: Ondansetron HCl (Ondansetron Hcl 4 Mg/2 Ml Vial) 4 mg IVPUSH Q8H PRN PRN Reason: Nausea and Vomiting Pharmacy Consult (Consult Rx Vancomycin Dosing) 1 each MISCELLANE DAILY PRN PRN Reason: Consult order Sodium Chloride (0.9 % Sodium Chloride Flush 3 Ml Syringe) 3 ml IVFLUSH QSHIFT [facility] Last Admin: 06/24/21 02:56 Dose: 3 ml Documented by: Vitamin D (Cholecalciferol (Vitamin D3) 25 Mcg Tablet) 25 mcg PO DAILY [facility] Last Admin: 06/23/21 09:40 Dose: 25 mcg Documented by: Warfarin Sodium (Warfarin Sodium 2.5 Mg Tablet) 2.5 mg PO SuTuWeFrSa@1800 [facility] Last Admin: 06/23/21 18:39 Dose: 2.5 mg Documented by: Warfarin Sodium (Warfarin Sodium 5 Mg Tablet) 5 mg PO MoTh@1800 [facility] Last Admin: 06/20/21 18:21 Dose: 5 mg Documented by: Time Spent With Patient Time: Total time spent is greater than 50% in coordination of care (as documented) at patient's floor/unit and/or counseling patient: Progress Note: Quality Stroke Does the patient have a stroke diagnosis?: No Procedures Date of Service Date of Service: 06/24/21
[2021-06-24] MEDS: Cholecalciferol (Vitamin D3) 25 MCG TABLET PO (09:45)
[2021-06-24] MEDS: Acetaminophen 325 MG TABLET 650 MG PO ×2 (09:45→19:59)
[2021-06-24] MEDS: Multivitamin TABLET 1 TAB PO (09:45)
[2021-06-24 10:54] LABS: Vancomycin Random 12.9 mcg/mL (15-20)
--- NOTE | 2021-06-24 11:09 | HE.PHANOTE ---
Vancomycin Dosing Based on todays trough of 12.9 and Scr of 1.05 dose continued at 1000q 12h. Next trough set for 06/26 @ 0900
[2021-06-24 11:20] VITALS: BP 108/61; PULSE 84; RESP 20; TEMP 36.7; O2SAT 97
--- NOTE | 2021-06-24 11:23 | P.PNIM_ITS ---
Subjective Subjective Date of Service: 06/24/21 <Liz De Leon NP - Last Filed: 06/24/21 11:33> 06/24/21 <Ruba Baeza MD - Last Filed: 06/24/21 15:27> Review of Systems Follow up AFIB, WAN running fevers No pain, nausea or vomiting <Liz De Leon NP - Last Filed: 06/24/21 11:33> Physical Exam Vital Signs: Vital Signs: Last Vital Signs Temp 98.1 F 06/24/21 11:20 Pulse 84 06/24/21 11:20 Resp 20 06/24/21 11:20 BP 108/61 06/24/21 11:20 Pulse Ox 97 06/24/21 11:20 BMI result Body Mass Index 43.5 <Liz De Leon NP - Last Filed: 06/24/21 11:33> Appearing in no acute distress lung sounds are clear to auscultation heart regular rate rhythm, clear S1, S2 positive bowel sounds, abdomen is soft, nontender neuro patient is alert x3, no focal deficits <Liz De Leon NP - Last Filed: 06/24/21 11:33> Objective Data Active Medications Acetaminophen (Acetaminophen 325 Mg Tablet) 650 mg PO Q6H PRN PRN Reason: Pain, Mild (Pain Scale 1-3) Last Admin: 06/24/21 09:45 Dose: 650 mg Documented by: GAVIN Albuterol Sulfate (Albuterol Sulfate 90 Mcg 8 Gm Inhaler) 2 puff INHALE Q4H PRN PRN Reason: shortness of breath or wheezing Balsalazide (Balsalazide Disodium 750 Mg Capsule) 2,250 mg PO TID [facility] Last Admin: 06/24/21 09:44 Dose: 2,250 mg Documented by: GAVIN Benzocaine (Throat Lozenge, Medicated Lozenge) 1 lozenge MUCOUS MEM Q2H PRN PRN Reason: Sore Throat Last Admin: 06/23/21 21:02 Dose: 1 lozenge Documented by: MADISON Digoxin (Digoxin 0.125 Mg Tablet) 0.125 mg PO Q2D [facility] Last Admin: 06/23/21 09:32 Dose: 0.125 mg Documented by: GAVIN Docusate Sodium (Docusate Sodium 100 Mg Capsule) 100 mg PO DAILY PRN PRN Reason: Constipation Furosemide (Furosemide 20 Mg Tablet) 20 mg PO DAILY [facility]; Protocol Last Admin: 06/23/21 09:28 Dose: Not Given Documented by: GAVIN Non-Admin Reason: Physician Held Med Guaifenesin (Guaifenesin La 600 Mg Tab.Er.12h) 600 mg PO BID [facility] Last Admin: 06/24/21 09:44 Dose: 600 mg Documented by: GAVIN Piperacillin Sod/Tazobactam (Sod 3.375 gm/ Sodium Chloride) 50 mls @ 100 mls/hr IV Q6H [facility] Last Infusion: 06/24/21 11:07 Dose: 0 mls/hr Documented by: GAVIN Caspofungin 50 mg/ Sodium (Chloride) 250 mls @ 250 mls/hr IV Q24H [facility] Last Infusion: 06/24/21 11:07 Dose: 0 mls/hr Documented by: GAVIN Vancomycin HCl 1,000 mg/ (Sodium Chloride) 270 mls @ 270 mls/hr IV Q12H [facility] Last Infusion: 06/24/21 02:57 Dose: 0 mls/hr Documented by: SONIA Metoprolol Tartrate (Metoprolol Tartrate 50 Mg Tablet) 50 mg PO BID@1200,2100 [facility]; Protocol Last Admin: 06/23/21 21:02 Dose: 50 mg Documented by: MADISON Multivitamins/Vitamin C (Multivitamin Tablet) 1 tab PO DAILY [facility] Last Admin: 06/24/21 09:45 Dose: 1 tab Documented by: GAVIN Ondansetron HCl (Ondansetron Hcl 4 Mg/2 Ml Vial) 4 mg IVPUSH Q8H PRN PRN Reason: Nausea and Vomiting Pharmacy Consult (Consult Rx Vancomycin Dosing) 1 each MISCELLANE DAILY PRN PRN Reason: Consult order Sodium Chloride (0.9 % Sodium Chloride Flush 3 Ml Syringe) 3 ml IVFLUSH QSHIFT [facility] Last Admin: 06/24/21 09:45 Dose: 3 ml Documented by: GAVIN Vitamin D (Cholecalciferol (Vitamin D3) 25 Mcg Tablet) 25 mcg PO DAILY [facility] Last Admin: 06/24/21 09:45 Dose: 25 mcg Documented by: GAVIN Warfarin Sodium (Warfarin Sodium 2.5 Mg Tablet) 2.5 mg PO SuTuWeFrSa@1800 [facility] Last Admin: 06/23/21 18:39 Dose: 2.5 mg Documented by: MADISON Warfarin Sodium (Warfarin Sodium 5 Mg Tablet) 5 mg PO MoTh@1800 [facility] Last Admin: 06/20/21 18:21 Dose: 5 mg Documented by: GAVIN <Liz De Leon NP - Last Filed: 06/24/21 11:33> Labs CBC & Chem 7: : 06/24/21 08:50 06/24/21 08:50 <Liz De Leon NP - Last Filed: 06/24/21 11:33> Labs: Laboratory Results - last 24 hr 06/21/21 06/23/21 06/24/21 22:54 09:47 08:50 MCV MCH MCHC RDW Plt Count MPV Immature Gran % (Auto) Neut % (Auto) Lymph % (Auto) [place] % (Auto) Eos % (Auto) Baso % (Auto) Lymph # (Auto) [place] # (Auto) Eos # (Auto) Baso # (Auto) Abs Immat Gran (auto) Absolute Neuts (auto) Absolute Nucleated RBC Nucleated RBC % (auto) PT INR Anion Gap 10 L Estim Creat Clear Calc 93.5 Estimated GFR > 60 Random Glucose 88 Calcium 7.9 L Random Vancomycin Respiratory Panel Lindsay See Note Adenovirus (Rapid PCR) Not Detected B.pert (TEM-PCR) Not Detected B.parapertussis DNA PCR Not Detected C. pneumoniae DNA (PCR) Not Detected Coronavirus OC43 (PCR) Not Detected Coronavirus HKU1 (PCR) Not Detected Coronavirus 229E (PCR) Not Detected Coronavirus NL63 (PCR) Not Detected Hep Bs Antigen Negative Hep Bs Antibody NONREACTIVE Hep B Core Total Ab Nonreactive Hepatitis C Ab (EIA) Nonreactive Human Metapneumovir PCR Not Detected Influenza A (RT-PCR) Not Detected Influenza B (RT-PCR) Not Detected M. pneumoniae (PCR) Not Detected Parainfluenza 1 (PCR) Not Detected Parainfluenza 2 (PCR) Not Detected Parainfluenza 3 (PCR) Not Detected Parainfluenza 4 (PCR) Not Detected RSV (PCR) Not Detected Entero/Rhino (PCR) Not Detected SARS-CoV-2 RNA (RT-PCR) Not Detected 06/24/21 06/24/21 06/24/21 08:50 08:50 08:50 MCV 87.8 MCH 25.4 L MCHC 28.9 L RDW 16.5 H Plt Count 242 MPV 10.1 Immature Gran % (Auto) 1.3 H Neut % (Auto) 75.1 H Lymph % (Auto) 13.7 L [place] % (Auto) 9.7 Eos % (Auto) 0.0 Baso % (Auto) 0.2 Lymph # (Auto) 0.8 L [place] # (Auto) 0.6 Eos # (Auto) 0.0 Baso # (Auto) 0.0 Abs Immat Gran (auto) 0.08 H Absolute Neuts (auto) 4.5 Absolute Nucleated RBC 0.000 Nucleated RBC % (auto) 0.0 PT 27.3 H INR 2.4 H Anion Gap Estim Creat Clear Calc Estimated GFR Random Glucose Calcium Random Vancomycin 12.9 L Respiratory Panel Lindsay Adenovirus (Rapid PCR) B.pert (TEM-PCR) B.parapertussis DNA PCR C. pneumoniae DNA (PCR) Coronavirus OC43 (PCR) Coronavirus HKU1 (PCR) Coronavirus 229E (PCR) Coronavirus NL63 (PCR) Hep Bs Antigen Hep Bs Antibody Hep B Core Total Ab Hepatitis C Ab (EIA) Human Metapneumovir PCR Influenza A (RT-PCR) Influenza B (RT-PCR) M. pneumoniae (PCR) Parainfluenza 1 (PCR) Parainfluenza 2 (PCR) Parainfluenza 3 (PCR) Parainfluenza 4 (PCR) RSV (PCR) Entero/Rhino (PCR) SARS-CoV-2 RNA (RT-PCR) <Liz De Leon NP - Last Filed: 06/24/21 11:33> Microbiology Microbiology Results: Microbiology 06/22/21 16:07 Blood Culture - Preliminary Blood - Venous No growth after 24 hours. 06/22/21 16:07 Blood Culture - Preliminary Blood - Venous No growth after 24 hours. <Liz De Leon NP - Last Filed: 06/24/21 11:33> Assessment and Plan (1) Acute respiratory failure with hypoxia: Status: Acute <Liz De Leon NP - Last Filed: 06/24/21 11:33> (2) Sepsis: Status: Acute <Liz De Leon NP - Last Filed: 06/24/21 11:33> (3) Atrial fibrillation with rapid ventricular response: Status: Acute <Liz De Leon NP - Last Filed: 06/24/21 11:33> (4) Left lower lobe pneumonia: Status: Acute <Liz De Leon NP - Last Filed: 06/24/21 11:33> Plan 66-year-old male with various? previous medical history who presents to the hospital with complaints of a fall found to have AFib with RVR among other findings including sepsis, WAN, elevated troponin as well as pneumonia sepsis secondary to hospital-acquired pneumonia/acute hypoxic respiratory failure vs acute cholecystitis patient with tachycardia, leukocytosis, lactic acidosis on admission. leukocytosis has resolved but pt spiked fever up to 104 will continue IV vancomycin and Zosyn, day #6 Seen by speech, no evidence of overt aspiration repeat lactic negative blood cultures negative to date, repeat cultures pending UA negative RPP pending ID consult pending, d/w ID will start caspofungin; further workup pending full ID consult BP dipped once overnight, receiving IVF based on ideal body wt sepsis focused exam completed seen by ICU but no note documented Will obtain HIDA scan to assess for gallbladder source AFib with RVR. HR up to 170s overnight - likely r/t to high fever s/p Cardizem drip off dose of metoprolol increased loaded with digoxin continue warfarin for anticoagulation, INR 2.6 monitor HR acute mild HFpEF received one dose IV lasix, seen by cardiology, did not feel he was in heart failure. rec to change to home dose of oral lasix lasix on hold today as pt receiving IVF as above BNP up from 38 to 121 monitor fluid status closely as he is receiving IVF elevated troponin likely type 2 in the setting of AFib with RVR as well as infection trended down, creatinine stable repeat trop today lower then on admission WAN. SCr has trended down from baseline likely prerenal in the setting of acute infection lactic acidosis secondary to acute sepsis well as dehydration trended down with IV fluids, will continue IV fluid resuscitation repeat lactic negative recent history of cholecystitis patient has no abdominal pain, guarding or rebound, no evidence of infection the gallbladder patient will be on IV antibiotics for above reasons monitor for any symptoms Crohn's disease stable will continue home medications Morbid obesity. BMI 43.6 Discussed the importance of weight management, weight contributing to worsening of other comorbidities FABIOLA CPAP DVT prophylaxis: Warfarin Attending Dr. Baeza Patient requires continued hospitalization the patient is currently being treated with IV antibiotics for Hcap, and titrating medication for atrial fibrillation with rapid ventricular response, high fever and ID evaluation as well as pending HIDA scan to assess for fever source <Liz De Leon NP - Last Filed: 06/24/21 11:33> Quality Stroke Does the patient have a stroke diagnosis?: No <Liz De Leon NP - Last Filed: 06/24/21 11:33> VTE Prior VTE?: No <Liz De Leon NP - Last Filed: 06/24/21 11:33> VTE Risk Level:: Medical - moderate - high <Liz De Leon NP - Last Filed: 06/24/21 11:33> VTE Device Contraindication: Treatment Not Indicated <Liz De Leon NP - Last Filed: 06/24/21 11:33> VTE Drug Contraindication: N/A - Med Ordered <Liz De Leon NP - Last Filed: 06/24/21 11:33>
[2021-06-24] MEDS: vancomycin HCL 1,000 MG in 0.9 % Sodium Chloride 250 ML 270 MG IV (11:52)
[2021-06-24] MEDS: Metoprolol Tartrate 50 MG TABLET PO ×2 (11:58→19:59)
--- NOTE | 2021-06-24 12:50 | PC.NURSE ---
Skin assessment completed. Patient has red excoriated buttocks, groin and coccyx. EPC cream applied to all areas. Patient is extremely obese and we try to turn and reposition as often as we can. Will continue to monitor.
--- NOTE | 2021-06-24 13:41 | P.CNID_ITS ---
History of Present Illness Data of Consult Service Date: 06/24/21 Requesting physician: Liz De Leon Primary Care Provider: Isabel Tilley MD HPI Reason for consult: fever of unknown origin He presents seven days ago with shortness of breath and tachycardia. He has LLL infiltrate. He has similar infiltrate on CT scan. He has no sputum production. Procalcitonin is .86. He has been on Vancomycin and Zosyn I see no signs of MRSA. 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 Decreased pulses in feet Empyema lung Empyema of left pleural space Moderate persistent asthma Numbness and tingling of lower extremity FABIOLA (obstructive sleep apnea) FABIOLA on CPAP Persistent atrial fibrillation Skin macule or macular rash Vitamin D deficiency Family History Family History Father Emphysema lung HTN (hypertension) Pulmonary fibrosis Mother HTN (hypertension) Family history: reviewed and not pertinent Surgical History Surgical History History of appendectomy History of bowel resection History of creation of ostomy Social History Social History Household Members: Sp[facility] Do you presently have visiting nurse or other home services: No Alcohol intake: never Patient Tobacco Use Status: Never used Tobacco e-Cigarette/Vaping Use: Never Used Second Hand Smoke Exposure: No Advance Directives Date on File: 06/05/21 service: No Current occupational status: retired Meds Allergies Allergy/AdvReac Type Severity Reaction Status Date / Time No Known Allergies Allergy Verified 06/14/21 10:48 Active Medications: Current Medications Acetaminophen (Acetaminophen 325 Mg Tablet) 650 mg PO Q6H PRN PRN Reason: Pain, Mild (Pain Scale 1-3) Last Admin: 06/24/21 09:45 Dose: 650 mg Documented by: Albuterol Sulfate (Albuterol Sulfate 90 Mcg 8 Gm Inhaler) 2 puff INHALE Q4H PRN PRN Reason: shortness of breath or wheezing Balsalazide (Balsalazide Disodium 750 Mg Capsule) 2,250 mg PO TID [facility] Last Admin: 06/24/21 09:44 Dose: 2,250 mg Documented by: Benzocaine (Throat Lozenge, Medicated Lozenge) 1 lozenge MUCOUS MEM Q2H PRN PRN Reason: Sore Throat Last Admin: 06/23/21 21:02 Dose: 1 lozenge Documented by: Digoxin (Digoxin 0.125 Mg Tablet) 0.125 mg PO Q2D [facility] Last Admin: 06/23/21 09:32 Dose: 0.125 mg Documented by: Docusate Sodium (Docusate Sodium 100 Mg Capsule) 100 mg PO DAILY PRN PRN Reason: Constipation Furosemide (Furosemide 20 Mg Tablet) 20 mg PO DAILY [facility]; Protocol Last Admin: 06/23/21 09:28 Dose: Not Given Documented by: Guaifenesin (Guaifenesin La 600 Mg Tab.Er.12h) 600 mg PO BID [facility] Last Admin: 06/24/21 09:44 Dose: 600 mg Documented by: Piperacillin Sod/Tazobactam (Sod 3.375 gm/ Sodium Chloride) 50 mls @ 100 mls/hr IV Q6H [facility] Last Infusion: 06/24/21 11:07 Dose: Infused Documented by: Caspofungin 50 mg/ Sodium (Chloride) 250 mls @ 250 mls/hr IV Q24H [facility] Last Infusion: 06/24/21 11:07 Dose: Infused Documented by: Vancomycin HCl 1,000 mg/ (Sodium Chloride) 270 mls @ 270 mls/hr IV Q12H [facility] Last Infusion: 06/24/21 13:31 Dose: Infused Documented by: Metoprolol Tartrate (Metoprolol Tartrate 50 Mg Tablet) 50 mg PO BID@1200,2100 [facility]; Protocol Last Admin: 06/24/21 11:58 Dose: 50 mg Documented by: Multivitamins/Vitamin C (Multivitamin Tablet) 1 tab PO DAILY [facility] Last Admin: 06/24/21 09:45 Dose: 1 tab Documented by: Ondansetron HCl (Ondansetron Hcl 4 Mg/2 Ml Vial) 4 mg IVPUSH Q8H PRN PRN Reason: Nausea and Vomiting Pharmacy Consult (Consult Rx Vancomycin Dosing) 1 each MISCELLANE DAILY PRN PRN Reason: Consult order Sodium Chloride (0.9 % Sodium Chloride Flush 3 Ml Syringe) 3 ml IVFLUSH QSHIFT [facility] Last Admin: 06/24/21 09:45 Dose: 3 ml Documented by: Vitamin D (Cholecalciferol (Vitamin D3) 25 Mcg Tablet) 25 mcg PO DAILY [facility] Last Admin: 06/24/21 09:45 Dose: 25 mcg Documented by: Warfarin Sodium (Warfarin Sodium 2.5 Mg Tablet) 2.5 mg PO SuTuWeFrSa@1800 [facility] Last Admin: 06/23/21 18:39 Dose: 2.5 mg Documented by: Warfarin Sodium (Warfarin Sodium 5 Mg Tablet) 5 mg PO MoTh@1800 [facility] Last Admin: 06/20/21 18:21 Dose: 5 mg Documented by: Home Medications Medication Instructions Recorded Confirmed Last Taken Type balsalazide 750 mg capsule 2,250 mg PO TID 03/02/20 06/18/21 1 Day Ago History ~06/17/21 krill oil 500 mg capsule 500 mg PO DAILY 09/11/20 06/18/21 1 Day Ago History ~06/17/21 lactobacillus combination no.9 4 4,000 mmu cells PO DAILY 09/11/20 06/18/21 1 Day Ago History billion cell capsule (Adult 50 ~06/17/21 Plus Probiotic) multivitamin 1 tab PO DAILY 09/11/20 06/18/21 06/04/21 12:00 History benralizumab 30 mg/mL subcutaneous 30 mg SUBCUT Q8W 06/05/21 06/18/21 06/10/21 History syringe (Fasenra) cholecalciferol (vitamin D3) 25 25 mcg PO DAILY 06/05/21 06/18/21 1 Day Ago History mcg (1,000 unit) tablet ~06/17/21 metoprolol tartrate 25 mg tablet 25 mg PO BID@1200,2100 06/05/21 06/18/21 1 Day Ago History ~06/17/21 warfarin 5 mg tablet 2.5 mg PO SUTUWEFRSA 06/05/21 06/18/21 06/16/21 History warfarin 5 mg tablet 5 mg PO MOTH 06/05/21 06/18/21 06/13/21 History Physical Exam Vital Signs: Vital Signs: Last Vital Signs Temp 98.1 F 06/24/21 11:20 Pulse 84 06/24/21 11:20 Resp 20 06/24/21 11:20 BP 108/61 06/24/21 11:20 Pulse Ox 97 06/24/21 11:20 BMI result Body Mass Index 43.5 Const: General: cooperative HEENT: Head: Yes normal to inspection Mouth: Normal oral and palatal mucosa present Eyes: General: appearance normal, both eyes and all related structures Resp: Effort & Inspection: normal respiratory effort (mild tachypnea) and decreased respiratory effort Cardio: Rate: regular rate Rhythm: abnormal rhythm GI: Palpation (GI): Soft to palpation and nontender Skin: General skin exam: no rashes or lesions noted Extrem: General: Yes normal to inspection Results Labs CBC & Chem 7: 06/24/21 08:50 06/24/21 08:50 Labs: Short CBC 06/24/21 Range/Units 08:50 WBC 6.0 (4.8-10.8) X10*3/uL Hgb 12.1 L (14.0-18.0) g/dl Hct 41.8 L (42.0-52.0) % Plt Count 242 (160-400) X10*3/uL BMP 06/24/21 08:50 Sodium 139 Potassium 4.1 Chloride 102 Carbon Dioxide 31 H BUN 14 Creatinine 1.05 Calcium 7.9 L Microbiology Microbiology Results: Microbiology 06/22/21 16:07 Blood - Venous Blood Culture - Preliminary No growth after 24 hours. 06/22/21 16:07 Blood - Venous Blood Culture - Preliminary No growth after 24 hours. 06/17/21 19:13 Blood - Venous Blood Culture - Final No growth after 5 days. 06/17/21 19:13 Blood - Venous Blood Culture - Final No growth after 5 days. Assessment and Plan (1) Acute respiratory failure with hypoxia: Status: Acute He has LLL pneumonia with 2 liters oxygen requirement but has FABIOLA and the oxygen requirement is not rising. The procalcitonin only .86 RVP unremarkable and he has been treated with Zosyn and Vancomycin,day 6 Drug fever is real concern. PE is somewhat concern Elevated troponins can cause fever if myocardial damage. (2) Sepsis: Status: Acute (3) Lactic acidosis: Status: Acute Plan Stop Vancomycin and Zosyn Would stop caspofungin if blood cultures negative at 24 hours. Check PE if not done Check Legionella if not done. Give Doxycycline 100 mg bid IV.
--- NOTE | 2021-06-24 14:49 | MHC.CM.PN ---
Male 66 DX AFIB w RVR PNA ID consult, ABX changes made. DP home no services family will transport.
[2021-06-24] MEDS: Doxycycline Hyclate 100 MG in 0.9 % Sodium Chloride 250 ML 166.67 MG IV (17:52)
[2021-06-24] MEDS: Throat Lozenge, Medicated LOZENGE 1 LOZENGE MUCOUS MEM (17:52)
[2021-06-24] MEDS: Warfarin Sodium 5 MG TABLET PO (17:52)
--- NOTE | 2021-06-24 18:47 | PM.EVENT ---
Event Note Date of Service: 06/24/21 Event Note: HIDA scan showed non visualization of gallbladder suggestive of obstructive cystic duct and strong evidence to suggest diagnosis of acute cholecystitis, common bile duct is patent, current findings can also be seen with chronic cholecystitis plan will obtain surgical consult and follow LFTs, continue current antibiotic
[2021-06-24 19:53] VITALS: BP 140/77; PULSE 102; RESP 20; TEMP 37.8; O2SAT 97
[2021-06-24 21:43] VITALS: TEMP 37.6
[2021-06-24 23:12] VITALS: BP 108/58; PULSE 80; RESP 18; TEMP 36.2; O2SAT 93
[2021-06-25 04:00] VITALS: BP 110/60; PULSE 83; RESP 18; TEMP 37.2; O2SAT 91
[2021-06-25] MEDS: Doxycycline Hyclate 100 MG in 0.9 % Sodium Chloride 250 ML 166.67 MG IV ×2 (05:06→17:34)
[2021-06-25 06:58] LABS: Alanine Aminotransferase 28 U/L (0-40); Albumin Level 2.5 g/dL (3.5-5.0); Alkaline Phosphatase 68 U/L (39-117); Aspartate Amino Transferase 52 U/L (5-37); Bilirubin Direct 0.3 mg/dL (0.0-0.5); Bilirubin Total 0.5 mg/dL (0.0-1.0); Creatinine Clr Calc Pharmacy 114.1; Estimated Glomerular Filt Rate > 60; Total Protein 5.6 g/dL (6.5-8.0)
[2021-06-25 07:01] LABS: INTERNATIONAL NORM RATIO 2.6 (0.9-1.1); Prothrombin Time 30.3 SEC (9.9-13.0)
[2021-06-25 08:00] VITALS: BP 117/65; PULSE 80; RESP 20; TEMP 36.5; O2SAT 97
[2021-06-25] MEDS: guaiFENesin LA 600 MG TAB.ER.12H PO ×2 (08:26→21:19)
[2021-06-25] MEDS: Digoxin 0.125 MG TABLET PO (08:26)
[2021-06-25] MEDS: 0.9 % Sodium Chloride Flush 3 ML SYRINGE IVFLUSH ×3 (08:26→21:20)
[2021-06-25] MEDS: Balsalazide Disodium 750 MG CAPSULE 2250 MG PO ×3 (08:26→21:19)
[2021-06-25] MEDS: Cholecalciferol (Vitamin D3) 25 MCG TABLET PO (08:26)
[2021-06-25] MEDS: Multivitamin TABLET 1 TAB PO (08:26)
[2021-06-25 08:29] LABS: MRSA Nasal PCR NEGATIVE (Negative); SA Nasal PCR NEGATIVE (Negative)
[2021-06-25 11:22] VITALS: BP 100/64; PULSE 80; RESP 20; TEMP 36.5; O2SAT 95
--- NOTE | 2021-06-25 12:28 | HO.PM.IMPN ---
Subjective Subjective Date of Service: 06/26/21 Review of Systems Follow up AFIB, WAN running fevers No pain, nausea or vomiting Physical Exam Vital Signs: Vital Signs: Last Vital Signs Temp 97.7 F 06/25/21 11:22 Pulse 80 06/25/21 11:22 Resp 20 06/25/21 11:22 BP 100/64 06/25/21 11:22 Pulse Ox 95 06/25/21 11:22 BMI result Body Mass Index 43.5 Appearing in no acute distress lung sounds are clear to auscultation heart regular rate rhythm, clear S1, S2 positive bowel sounds, abdomen is soft, nontender, obese neuro patient is alert x3, no focal deficits Objective Data Active Medications Acetaminophen (Acetaminophen 325 Mg Tablet) 650 mg PO Q6H PRN PRN Reason: Pain, Mild (Pain Scale 1-3) Last Admin: 06/24/21 19:59 Dose: 650 mg Documented by: SONIA Albuterol Sulfate (Albuterol Sulfate 90 Mcg 8 Gm Inhaler) 2 puff INHALE Q4H PRN PRN Reason: shortness of breath or wheezing Balsalazide (Balsalazide Disodium 750 Mg Capsule) 2,250 mg PO TID [facility] Last Admin: 06/25/21 08:26 Dose: 2,250 mg Documented by: MATTHIAS Benzocaine (Throat Lozenge, Medicated Lozenge) 1 lozenge MUCOUS MEM Q2H PRN PRN Reason: Sore Throat Last Admin: 06/24/21 17:52 Dose: 1 lozenge Documented by: GAVIN Digoxin (Digoxin 0.125 Mg Tablet) 0.125 mg PO Q2D [facility] Last Admin: 06/25/21 08:26 Dose: 0.125 mg Documented by: MATTHIAS Docusate Sodium (Docusate Sodium 100 Mg Capsule) 100 mg PO DAILY PRN PRN Reason: Constipation Furosemide (Furosemide 20 Mg Tablet) 20 mg PO DAILY [facility]; Protocol Last Admin: 06/23/21 09:28 Dose: Not Given Documented by: GAVIN Non-Admin Reason: Physician Held Med Guaifenesin (Guaifenesin La 600 Mg Tab.Er.12h) 600 mg PO BID [facility] Last Admin: 06/25/21 08:26 Dose: 600 mg Documented by: MATTHIAS Doxycycline Hyclate 100 mg/ (Sodium Chloride) 250 mls @ 166.67 mls/hr IV Q12H [facility] Last Infusion: 06/25/21 07:03 Dose: 0 mls/hr Documented by: SONIA Metoprolol Tartrate (Metoprolol Tartrate 50 Mg Tablet) 50 mg PO BID@1200,2100 [facility]; Protocol Last Admin: 06/24/21 19:59 Dose: 50 mg Documented by: SONIA Multivitamins/Vitamin C (Multivitamin Tablet) 1 tab PO DAILY [facility] Last Admin: 06/25/21 08:26 Dose: 1 tab Documented by: MATTHIAS Ondansetron HCl (Ondansetron Hcl 4 Mg/2 Ml Vial) 4 mg IVPUSH Q8H PRN PRN Reason: Nausea and Vomiting Sodium Chloride (0.9 % Sodium Chloride Flush 3 Ml Syringe) 3 ml IVFLUSH QSHIFT [facility] Last Admin: 06/25/21 08:26 Dose: 3 ml Documented by: MATTHIAS Vitamin D (Cholecalciferol (Vitamin D3) 25 Mcg Tablet) 25 mcg PO DAILY [facility] Last Admin: 06/25/21 08:26 Dose: 25 mcg Documented by: MATTHIAS Warfarin Sodium (Warfarin Sodium 2.5 Mg Tablet) 2.5 mg PO SuTuWeFrSa@1800 [facility] Last Admin: 06/23/21 18:39 Dose: 2.5 mg Documented by: MADISON Warfarin Sodium (Warfarin Sodium 5 Mg Tablet) 5 mg PO MoTh@1800 [facility] Last Admin: 06/24/21 17:52 Dose: 5 mg Documented by: GAVIN Labs CBC & Chem 7: 06/24/21 08:50 06/25/21 06:09 Labs: Laboratory Results - last 24 hr 06/24/21 06/25/21 06/25/21 19:50 06:09 06:09 PT 30.3 H INR 2.6 H Estim Creat Clear Calc 114.1 Estimated GFR > 60 Total Bilirubin 0.5 Direct Bilirubin 0.3 AST 52 H ALT 28 Alkaline Phosphatase 68 Total Protein 5.6 L Albumin 2.5 L Nasal Screen MRSA (PCR) NEGATIVE Nasal S. aureus Screen NEGATIVE Nasal MRSA/S.aureus Interp SEE NOTE Microbiology Microbiology Results: Microbiology 06/22/21 16:07 Blood Culture - Preliminary Blood - Venous No growth after 48 hours. 06/22/21 16:07 Blood Culture - Preliminary Blood - Venous No growth after 48 hours. Assessment and Plan (1) Acute respiratory failure with hypoxia: Status: Acute (2) Sepsis: Status: Acute (3) Atrial fibrillation with rapid ventricular response: Status: Acute (4) Left lower lobe pneumonia: Status: Acute Plan 66-year-old male with various? previous medical history who presents to the hospital with complaints of a fall found to have AFib with RVR among other findings including sepsis, WAN, elevated troponin as well as pneumonia sepsis secondary to hospital-acquired pneumonia/acute hypoxic respiratory failure vs acute cholecystitis at this point seems mostly related to gallbladder vanco and zosyn changed to doxycycline for HCAP Seen by speech, no evidence of overt aspiration UA, RPP, blood cx negative ID following, started caspofungin due to peristent fevers and concern for fungemia, but stopped after neg cx HIDA scan showed continuous cholecystitis, discussed with General surgery. He needs cholecystectomy versus drain as this is likely where his sepsis is coming from AFib with RVR. s/p Cardizem drip off metoprolol increased loaded with digoxin continue warfarin for anticoagulation acute mild HFpEF received one dose IV lasix, seen by cardiology, did not feel he was in heart failure. rec to change to home dose of oral lasix elevated troponin likely type 2 in the setting of AFib with RVR as well as infection trended down, creatinine stable repeat trop today lower then on admission WAN. SCr has trended down from baseline likely prerenal in the setting of acute infection lactic acidosis secondary to acute sepsis well as dehydration trended down with IV fluids, will continue IV fluid resuscitation repeat lactic negative recent history of cholecystitis patient has no abdominal pain, guarding or rebound, no evidence of infection the gallbladder patient will be on IV antibiotics for above reasons monitor for any symptoms Crohn's disease stable will continue home medications Morbid obesity. BMI 43.6 Discussed the importance of weight management, weight contributing to worsening of other comorbidities FABIOLA CPAP DVT prophylaxis: Warfarin Attending Dr. Dyer Patient requires continued hospitalization the patient is currently being treated with IV antibiotics for Hcap. His HIDA scan was positive for cholecystitis and he will likely need surgical intervention for cholecystectomy versus a percutaneous drain therefore needs continued inpatient hospitalization for this. Quality Stroke Does the patient have a stroke diagnosis?: No VTE Prior VTE?: No VTE Risk Level:: Medical - moderate - high VTE Device Contraindication: Treatment Not Indicated VTE Drug Contraindication: N/A - Med Ordered
[2021-06-25] MEDS: Metoprolol Tartrate 50 MG TABLET PO ×2 (12:40→21:19)
--- NOTE | 2021-06-25 14:40 | PM.IDPN ---
Subjective Subjective Date of Service: 06/25/21 Critical Care Time (minutes): 15 Comment: He has no concerns today He has no fever Objective Data Labs CBC & Chem 7: 06/24/21 08:50 06/25/21 06:09 Labs: Laboratory Results - last 24 hr 06/24/21 06/25/21 06/25/21 19:50 06:09 06:09 PT 30.3 H INR 2.6 H Creatinine 0.86 Estim Creat Clear Calc 114.1 Estimated GFR > 60 Total Bilirubin 0.5 Direct Bilirubin 0.3 AST 52 H ALT 28 Alkaline Phosphatase 68 Total Protein 5.6 L Albumin 2.5 L Nasal Screen MRSA (PCR) NEGATIVE Nasal S. aureus Screen NEGATIVE Nasal MRSA/S.aureus Interp SEE NOTE Microbiology Microbiology Results: Microbiology 06/22/21 16:07 Blood - Venous Blood Culture - Preliminary No growth after 48 hours. 06/22/21 16:07 Blood - Venous Blood Culture - Preliminary No growth after 48 hours. 06/17/21 19:13 Blood - Venous Blood Culture - Final No growth after 5 days. 06/17/21 19:13 Blood - Venous Blood Culture - Final No growth after 5 days. Physical Exam Vital Signs: Vital Signs: Last Vital Signs Temp 97.7 F 06/25/21 11:22 Pulse 80 06/25/21 11:22 Resp 20 06/25/21 11:22 BP 100/64 06/25/21 11:22 Pulse Ox 95 06/25/21 11:22 BMI result Body Mass Index 43.5 Const: General: cooperative Resp: Effort & Inspection: normal respiratory effort Cardio: Rate: regular rate Rhythm: regular rhythm GI: Palpation (GI): Soft to palpation and nontender Assessment and Plan Assessment and plan (1) Sepsis: Problem details: apparently there is still concern over gallbladder infection He has some possible infiltrate as well He has been on multiple antibiotics Status: Acute Assessment and Plan: Continue Doxycycline for 14 days Sort out gallbladder concerns?cholecystectomy Time Spent With Patient Time: Total time spent is greater than 50% in coordination of care (as documented) at patient's floor/unit and/or counseling patient:
--- NOTE | 2021-06-25 14:45 | PM.PNGS ---
Subjective Subjective Date of Service: 06/25/21 Interval history: Says he feels well Denies any right upper quadrant her any abdominal pain Had some temperature spikes yesterday No fever today Good GI function Physical Exam Vital Signs: Vital Signs: Last Vital Signs Temp 97.7 F 06/25/21 11:22 Pulse 80 06/25/21 11:22 Resp 20 06/25/21 11:22 BP 100/64 06/25/21 11:22 Pulse Ox 95 06/25/21 11:22 BMI result Body Mass Index 43.5 Const: Other: Looks comfortable, sitting on recliner, does get easily short of breath Eyes: Sclerae: sclerae normal Resp: Other: Appears a little short of breath periodically - says this is baseline for him Cardio: Rate: regular rate GI: Other: Soft, nontender on the right upper quadrant, no Andrew sign, stoma on the left functioning Objective Data Active Medications Acetaminophen (Acetaminophen 325 Mg Tablet) 650 mg PO Q6H PRN PRN Reason: Pain, Mild (Pain Scale 1-3) Last Admin: 06/24/21 19:59 Dose: 650 mg Documented by: SONIA Albuterol Sulfate (Albuterol Sulfate 90 Mcg 8 Gm Inhaler) 2 puff INHALE Q4H PRN PRN Reason: shortness of breath or wheezing Balsalazide (Balsalazide Disodium 750 Mg Capsule) 2,250 mg PO TID [facility] Last Admin: 06/25/21 08:26 Dose: 2,250 mg Documented by: MATTHIAS Benzocaine (Throat Lozenge, Medicated Lozenge) 1 lozenge MUCOUS MEM Q2H PRN PRN Reason: Sore Throat Last Admin: 06/24/21 17:52 Dose: 1 lozenge Documented by: GAVIN Digoxin (Digoxin 0.125 Mg Tablet) 0.125 mg PO Q2D [facility] Last Admin: 06/25/21 08:26 Dose: 0.125 mg Documented by: MATTHIAS Docusate Sodium (Docusate Sodium 100 Mg Capsule) 100 mg PO DAILY PRN PRN Reason: Constipation Furosemide (Furosemide 20 Mg Tablet) 20 mg PO DAILY [facility]; Protocol Last Admin: 06/23/21 09:28 Dose: Not Given Documented by: GAVIN Non-Admin Reason: Physician Held Med Guaifenesin (Guaifenesin La 600 Mg Tab.Er.12h) 600 mg PO BID [facility] Last Admin: 06/25/21 08:26 Dose: 600 mg Documented by: MATTHIAS Doxycycline Hyclate 100 mg/ (Sodium Chloride) 250 mls @ 166.67 mls/hr IV Q12H [facility] Last Infusion: 06/25/21 07:03 Dose: 0 mls/hr Documented by: SONIA Metoprolol Tartrate (Metoprolol Tartrate 50 Mg Tablet) 50 mg PO BID@1200,2100 [facility]; Protocol Last Admin: 06/25/21 12:40 Dose: 50 mg Documented by: MATTHIAS Multivitamins/Vitamin C (Multivitamin Tablet) 1 tab PO DAILY [facility] Last Admin: 06/25/21 08:26 Dose: 1 tab Documented by: MATTHIAS Ondansetron HCl (Ondansetron Hcl 4 Mg/2 Ml Vial) 4 mg IVPUSH Q8H PRN PRN Reason: Nausea and Vomiting Sodium Chloride (0.9 % Sodium Chloride Flush 3 Ml Syringe) 3 ml IVFLUSH QSHIFT [facility] Last Admin: 06/25/21 08:26 Dose: 3 ml Documented by: MATTHIAS Vitamin D (Cholecalciferol (Vitamin D3) 25 Mcg Tablet) 25 mcg PO DAILY [facility] Last Admin: 06/25/21 08:26 Dose: 25 mcg Documented by: MATTHIAS Warfarin Sodium (Warfarin Sodium 2.5 Mg Tablet) 2.5 mg PO SuTuWeFrSa@1800 [facility] Last Admin: 06/23/21 18:39 Dose: 2.5 mg Documented by: MADISON Warfarin Sodium (Warfarin Sodium 5 Mg Tablet) 5 mg PO MoTh@1800 [facility] Last Admin: 06/24/21 17:52 Dose: 5 mg Documented by: GAVIN Labs CBC & Chem 7: 06/24/21 08:50 06/25/21 06:09 Labs: Laboratory Results - last 24 hr 06/24/21 06/25/21 06/25/21 19:50 06:09 06:09 PT 30.3 H INR 2.6 H Estim Creat Clear Calc 114.1 Estimated GFR > 60 Total Bilirubin 0.5 Direct Bilirubin 0.3 AST 52 H ALT 28 Alkaline Phosphatase 68 Total Protein 5.6 L Albumin 2.5 L Nasal Screen MRSA (PCR) NEGATIVE Nasal S. aureus Screen NEGATIVE Nasal MRSA/S.aureus Interp SEE NOTE Microbiology Microbiology Results: Microbiology 06/22/21 16:07 Blood Culture - Preliminary Blood - Venous No growth after 48 hours. 06/22/21 16:07 Blood Culture - Preliminary Blood - Venous No growth after 48 hours. Procedures Date of Service Date of Service: 06/25/21 Progress Note: A&P Assessment and plan (1) Sepsis: Status: Acute Assessment and Plan: No fever today White count normal No right upper quadrant pain or tenderness However, absence of definite etiology lesion fever, gallbladder disease he concern Re-evaluate in the morning -will consider tube cholecystostomy by IR explained to pt and Fall Risk Details Current Medications: Current Medications Acetaminophen (Acetaminophen 325 Mg Tablet) 650 mg PO Q6H PRN PRN Reason: Pain, Mild (Pain Scale 1-3) Last Admin: 06/24/21 19:59 Dose: 650 mg Documented by: Albuterol Sulfate (Albuterol Sulfate 90 Mcg 8 Gm Inhaler) 2 puff INHALE Q4H PRN PRN Reason: shortness of breath or wheezing Balsalazide (Balsalazide Disodium 750 Mg Capsule) 2,250 mg PO TID [facility] Last Admin: 06/25/21 08:26 Dose: 2,250 mg Documented by: Benzocaine (Throat Lozenge, Medicated Lozenge) 1 lozenge MUCOUS MEM Q2H PRN PRN Reason: Sore Throat Last Admin: 06/24/21 17:52 Dose: 1 lozenge Documented by: Digoxin (Digoxin 0.125 Mg Tablet) 0.125 mg PO Q2D [facility] Last Admin: 06/25/21 08:26 Dose: 0.125 mg Documented by: Docusate Sodium (Docusate Sodium 100 Mg Capsule) 100 mg PO DAILY PRN PRN Reason: Constipation Furosemide (Furosemide 20 Mg Tablet) 20 mg PO DAILY [facility]; Protocol Last Admin: 06/23/21 09:28 Dose: Not Given Documented by: Guaifenesin (Guaifenesin La 600 Mg Tab.Er.12h) 600 mg PO BID [facility] Last Admin: 06/25/21 08:26 Dose: 600 mg Documented by: Doxycycline Hyclate 100 mg/ (Sodium Chloride) 250 mls @ 166.67 mls/hr IV Q12H [facility] Last Infusion: 06/25/21 07:03 Dose: Infused Documented by: Metoprolol Tartrate (Metoprolol Tartrate 50 Mg Tablet) 50 mg PO BID@1200,2100 [facility]; Protocol Last Admin: 06/25/21 12:40 Dose: 50 mg Documented by: Multivitamins/Vitamin C (Multivitamin Tablet) 1 tab PO DAILY [facility] Last Admin: 06/25/21 08:26 Dose: 1 tab Documented by: Ondansetron HCl (Ondansetron Hcl 4 Mg/2 Ml Vial) 4 mg IVPUSH Q8H PRN PRN Reason: Nausea and Vomiting Sodium Chloride (0.9 % Sodium Chloride Flush 3 Ml Syringe) 3 ml IVFLUSH QSHIFT [facility] Last Admin: 06/25/21 08:26 Dose: 3 ml Documented by: Vitamin D (Cholecalciferol (Vitamin D3) 25 Mcg Tablet) 25 mcg PO DAILY [facility] Last Admin: 06/25/21 08:26 Dose: 25 mcg Documented by: Warfarin Sodium (Warfarin Sodium 2.5 Mg Tablet) 2.5 mg PO SuTuWeFrSa@1800 [facility] Last Admin: 06/23/21 18:39 Dose: 2.5 mg Documented by: Warfarin Sodium (Warfarin Sodium 5 Mg Tablet) 5 mg PO MoTh@1800 [facility] Last Admin: 06/24/21 17:52 Dose: 5 mg Documented by: Time Spent With Patient Time: Total time spent is greater than 50% in coordination of care (as documented) at patient's floor/unit and/or counseling patient: Quality Stroke Does the patient have a stroke diagnosis?: No VTE Prior VTE?: No VTE Risk Level:: Medical - moderate - high VTE Device Contraindication: Treatment Not Indicated VTE Drug Contraindication: N/A - Med Ordered
[2021-06-25 15:54] VITALS: BP 104/64; PULSE 81; RESP 16; TEMP 36.6; O2SAT 96
[2021-06-25] MEDS: Warfarin Sodium 2.5 MG TABLET PO (17:30)
[2021-06-25 19:45] VITALS: BP 113/66; PULSE 89; RESP 20; TEMP 36.7; O2SAT 96
[2021-06-25] MEDS: Acetaminophen 325 MG TABLET 650 MG PO (21:23)
[2021-06-26] VITALS: BP 133/61; PULSE 83; RESP 16; TEMP 35.9; O2SAT 96
[2021-06-26 03:41] VITALS: BP 113/60; PULSE 80; TEMP 37; O2SAT 80
[2021-06-26] MEDS: Doxycycline Hyclate 100 MG in 0.9 % Sodium Chloride 250 ML 166.67 MG IV (04:59)
[2021-06-26 05:04] LABS: Hepatitis A Antibody IgM 0.26 Index (0-0.79); ~Hepatitis A Antibody IgM Nonreactive (Nonreactive)
--- NOTE | 2021-06-26 06:09 | PC.NURSE ---
NAPPING INTERMITTANTLY OVERNIGHT..AWAKE..ALERT..ORIENTED X3...RESPIRATIONS EASY WITH O2 2 L/M...ATRIAL FIB CONTROLLED HR...AMBULATED TO BR...VOIDED 400ml MANINDER URINE AND EMPTIED HIS OWN COLOSTOMY FOR LOOSE BROWN STOOL PER PATIENT...NPO SINCE 12AM FOR ?GALL-BLADDER DRAIN INSERTION TODAY..RESTFUL..DENIES/OFFERS NO COMPLAINTS
[2021-06-26 06:14] LABS: INTERNATIONAL NORM RATIO 3.2 (0.9-1.1); Prothrombin Time 37.6 SEC (9.9-13.0)
[2021-06-26 07:15] VITALS: BP 123/62; PULSE 77; RESP 20; TEMP 36.8; O2SAT 97
[2021-06-26] MEDS: Cholecalciferol (Vitamin D3) 25 MCG TABLET PO (08:40)
[2021-06-26] MEDS: Balsalazide Disodium 750 MG CAPSULE 2250 MG PO (08:40)
[2021-06-26] MEDS: Multivitamin TABLET 1 TAB PO (08:40)
[2021-06-26] MEDS: guaiFENesin LA 600 MG TAB.ER.12H PO (08:40)
[2021-06-26] MEDS: 0.9 % Sodium Chloride Flush 3 ML SYRINGE IVFLUSH (08:47)
--- NOTE | 2021-06-26 09:06 | P.PNGS_ITS ---
Subjective Subjective Date of Service: 06/26/21 Interval history: Has had no fever about 48 hours He feels well denies any pain or tenderness on the right upper quadrant Says he is ready to be discharged Physical Exam Vital Signs: Vital Signs: Last Vital Signs Temp 98.3 F 06/26/21 07:15 Pulse 77 06/26/21 07:15 Resp 20 06/26/21 07:15 BP 123/62 06/26/21 07:15 Pulse Ox 97 06/26/21 07:15 BMI result Body Mass Index 43.5 Const: General: comfortable and no acute distress Resp: Effort & Inspection: normal respiratory effort Cardio: Rate: regular rate GI: Other: No Andrew sign Palpation (GI): Soft to palpation, not firm, nontender and no guarding Objective Data Active Medications Acetaminophen (Acetaminophen 325 Mg Tablet) 650 mg PO Q6H PRN PRN Reason: Pain, Mild (Pain Scale 1-3) Last Admin: 06/25/21 21:23 Dose: 650 mg Documented by: SONIA Albuterol Sulfate (Albuterol Sulfate 90 Mcg 8 Gm Inhaler) 2 puff INHALE Q4H PRN PRN Reason: shortness of breath or wheezing Balsalazide (Balsalazide Disodium 750 Mg Capsule) 2,250 mg PO TID [facility] Last Admin: 06/26/21 08:40 Dose: 2,250 mg Documented by: KELLY Benzocaine (Throat Lozenge, Medicated Lozenge) 1 lozenge MUCOUS MEM Q2H PRN PRN Reason: Sore Throat Last Admin: 06/24/21 17:52 Dose: 1 lozenge Documented by: GAVIN Digoxin (Digoxin 0.125 Mg Tablet) 0.125 mg PO Q2D [facility] Last Admin: 06/25/21 08:26 Dose: 0.125 mg Documented by: MATTHIAS Docusate Sodium (Docusate Sodium 100 Mg Capsule) 100 mg PO DAILY PRN PRN Reason: Constipation Furosemide (Furosemide 20 Mg Tablet) 20 mg PO DAILY [facility]; Protocol Last Admin: 06/23/21 09:28 Dose: Not Given Documented by: GAVIN Non-Admin Reason: Physician Held Med Guaifenesin (Guaifenesin La 600 Mg Tab.Er.12h) 600 mg PO BID [facility] Last Admin: 06/26/21 08:40 Dose: 600 mg Documented by: KELLY Doxycycline Hyclate 100 mg/ (Sodium Chloride) 250 mls @ 166.67 mls/hr IV Q12H [facility] Last Infusion: 06/26/21 06:34 Dose: 0 mls/hr Documented by: KATHY Metoprolol Tartrate (Metoprolol Tartrate 50 Mg Tablet) 50 mg PO BID@1200,2100 [facility]; Protocol Last Admin: 06/25/21 21:19 Dose: 50 mg Documented by: SONIA Multivitamins/Vitamin C (Multivitamin Tablet) 1 tab PO DAILY [facility] Last Admin: 06/26/21 08:40 Dose: 1 tab Documented by: KELLY Ondansetron HCl (Ondansetron Hcl 4 Mg/2 Ml Vial) 4 mg IVPUSH Q8H PRN PRN Reason: Nausea and Vomiting Sodium Chloride (0.9 % Sodium Chloride Flush 3 Ml Syringe) 3 ml IVFLUSH QSHIFT [facility] Last Admin: 06/26/21 08:47 Dose: 3 ml Documented by: KELLY Vitamin D (Cholecalciferol (Vitamin D3) 25 Mcg Tablet) 25 mcg PO DAILY [facility] Last Admin: 06/26/21 08:40 Dose: 25 mcg Documented by: KELLY Warfarin Sodium (Warfarin Sodium 2.5 Mg Tablet) 2.5 mg PO SuTuWeFrSa@1800 [facility] Last Admin: 06/25/21 17:30 Dose: 2.5 mg Documented by: MATTHIAS Warfarin Sodium (Warfarin Sodium 5 Mg Tablet) 5 mg PO MoTh@1800 [facility] Last Admin: 06/24/21 17:52 Dose: 5 mg Documented by: GAVIN Labs CBC & Chem 7: 06/24/21 08:50 06/25/21 06:09 Labs: Laboratory Results - last 24 hr 06/21/21 06/26/21 22:54 05:47 PT 37.6 H INR 3.2 H Hepatitis A IgM Ab Nonreactive Procedures Date of Service Date of Service: 06/26/21 Progress Note: A&P Assessment and plan (1) Cholecystitis: Status: Acute Assessment and Plan: Has had no pain or tenderness No fever WBC normal Would hold off on cholecystostomy tube He is clinically doing very well overall Okay to discharge home later today or tomorrow surgical standpoint if he continues do well Discussed with hospitalist service Fall Risk Details Current Medications: Current Medications Acetaminophen (Acetaminophen 325 Mg Tablet) 650 mg PO Q6H PRN PRN Reason: Pain, Mild (Pain Scale 1-3) Last Admin: 06/25/21 21:23 Dose: 650 mg Documented by: Albuterol Sulfate (Albuterol Sulfate 90 Mcg 8 Gm Inhaler) 2 puff INHALE Q4H PRN PRN Reason: shortness of breath or wheezing Balsalazide (Balsalazide Disodium 750 Mg Capsule) 2,250 mg PO TID [facility] Last Admin: 06/26/21 08:40 Dose: 2,250 mg Documented by: Benzocaine (Throat Lozenge, Medicated Lozenge) 1 lozenge MUCOUS MEM Q2H PRN PRN Reason: Sore Throat Last Admin: 06/24/21 17:52 Dose: 1 lozenge Documented by: Digoxin (Digoxin 0.125 Mg Tablet) 0.125 mg PO Q2D [facility] Last Admin: 06/25/21 08:26 Dose: 0.125 mg Documented by: Docusate Sodium (Docusate Sodium 100 Mg Capsule) 100 mg PO DAILY PRN PRN Reason: Constipation Furosemide (Furosemide 20 Mg Tablet) 20 mg PO DAILY [facility]; Protocol Last Admin: 06/23/21 09:28 Dose: Not Given Documented by: Guaifenesin (Guaifenesin La 600 Mg Tab.Er.12h) 600 mg PO BID [facility] Last Admin: 06/26/21 08:40 Dose: 600 mg Documented by: Doxycycline Hyclate 100 mg/ (Sodium Chloride) 250 mls @ 166.67 mls/hr IV Q12H [facility] Last Infusion: 06/26/21 06:34 Dose: Infused Documented by: Metoprolol Tartrate (Metoprolol Tartrate 50 Mg Tablet) 50 mg PO BID@1200,2100 [facility]; Protocol Last Admin: 06/25/21 21:19 Dose: 50 mg Documented by: Multivitamins/Vitamin C (Multivitamin Tablet) 1 tab PO DAILY [facility] Last Admin: 06/26/21 08:40 Dose: 1 tab Documented by: Ondansetron HCl (Ondansetron Hcl 4 Mg/2 Ml Vial) 4 mg IVPUSH Q8H PRN PRN Reason: Nausea and Vomiting Sodium Chloride (0.9 % Sodium Chloride Flush 3 Ml Syringe) 3 ml IVFLUSH QSHIFT [facility] Last Admin: 06/26/21 08:47 Dose: 3 ml Documented by: Vitamin D (Cholecalciferol (Vitamin D3) 25 Mcg Tablet) 25 mcg PO DAILY [facility] Last Admin: 06/26/21 08:40 Dose: 25 mcg Documented by: Warfarin Sodium (Warfarin Sodium 2.5 Mg Tablet) 2.5 mg PO SuTuWeFrSa@1800 [facility] Last Admin: 06/25/21 17:30 Dose: 2.5 mg Documented by: Warfarin Sodium (Warfarin Sodium 5 Mg Tablet) 5 mg PO MoTh@1800 [facility] Last Admin: 06/24/21 17:52 Dose: 5 mg Documented by: Time Spent With Patient Time: Total time spent is greater than 50% in coordination of care (as documented) at patient's floor/unit and/or counseling patient: Quality Stroke Does the patient have a stroke diagnosis?: No VTE Prior VTE?: No VTE Risk Level:: Medical - moderate - high VTE Device Contraindication: Treatment Not Indicated VTE Drug Contraindication: N/A - Med Ordered
--- NOTE | 2021-06-26 10:01 | PM.DS ---
DS: Providers Provider Date of Service: 06/26/21 Date of admission: 06/17/21 23:00 Primary care physician: Isabel Tilley MD Consults: 06/19/21 08:04 Consult to Cardiology Routine Consulting Provider: Shaggy Tejada Reason for consultation: afib rvr Has provider been notified: No 06/22/21 15:33 Consult to Infectious Diseases Routine Consulting Provider: Gena Powell Reason for consultation: pneumonia, sepsis Has provider been notified: No 06/22/21 18:56 Consult to Critical Care Routine Consulting Provider: Ironworker Apprentice,[id number] ICU Reason for consultation: AMS w Afib RVR, Hyperthermia 06/24/21 18:48 Consult to General Surgery Routine Consulting Provider: Zack Fraga Reason for consultation: acute vs ch cholecystitis Has provider been notified: No Attending physician on discharge: Michele Dyer Discharging clinician: Liz De Leon DS: Diagnosis Discharge Diagnosis (1) Acute respiratory failure with hypoxia: Status: Acute (2) Sepsis: Status: Acute (3) Atrial fibrillation with rapid ventricular response: Status: Acute (4) Left lower lobe pneumonia: Status: Acute DS: Summary Hospital Course Hospital Course: HP as per admitting provider this is a 66-year-old male with past medical history of persistent AFib, anemia, asthma, Crohn's disease, history of empyema, FABIOLA presents to the hospital with complaints of fall.? Patient was going to the bathroom, he slipped, he fell on his knees without losing consciousness or injuring his head.? He reports no palpitations, and no chest pain at the time of the incident.? Patient reports that he fell onto his knee, and had difficulty getting up due to weakness as well as slippery floors and therefore EMS called.? On arrival of EMS patient's heart rate was found to be in the 180s.? He received? 5 mg of metoprolol IV x2, ? With no significant improvement in heart rate.? Once patient arrived at the ED, he was started on Cardizem drip with heart rate improving. Of note patient was recently discharged from the hospital on 06/09 after workup showed possible cholecystitis, patient was not a candidate for surgical intervention and was treated conservatively with antibiotics.? Other causes of infection or also ruled out, and patient was discharged on Augmentin as well as azithromycin. at this time patient denies having any headache, change in vision, no chest pain, no palpitations, he does report worsening shortness of breath on exertion, reports slight cough with no sputum production, no orthopnea or PND, no abdominal pain nausea or vomiting, no diarrhea constipation, denies any fever or chills, no urinary symptoms and no lower extremity edema. On presentation to the ED patient was found to have heart rate? a 160, respiratory rate of 20, BP of 112/67, satting 88% on room air. Labs are significant for? WBC count of 20.1, PT of 21, INR of 1.8, lactic acid of 2.1 that trended down after IV fluids, creatinine of 1.75 with a baseline around 1, initial troponin of 30 increased to 90 and trended down to 55, chest x-ray shows when compared to exam from 06/06 there is increased density in the retrocardiac region and left lower lobe in which aspiration or? developing infiltrates cannot be excluded. Patient's her on Cardizem drip, IV antibiotics and will be admitted for further management sepsis secondary to hospital-acquired pneumonia/acute hypoxic respiratory failure vs acute cholecystitis at this point seems mostly related to gallbladder vanco and zosyn changed to doxycycline for HCAP, treatment complete Seen by speech, no evidence of overt aspiration UA, RPP, blood cx negative ID following, started caspofungin due to peristent fevers and concern for fungemia, but stopped after neg cx HIDA scan showed continuous cholecystitis, discussed with General surgery.?no fevers over 48 hours, no abdominal pain, no need for intervention at this time as per general surgery AFib with RVR. s/p Cardizem drip metoprolol increased loaded with digoxin continue warfarin for anticoagulation acute on chronic mild HFpEF received one dose IV lasix, seen by cardiology, did not feel he was in heart failure. rec to change to home dose of oral lasix elevated troponin likely type 2 in the setting of AFib with RVR as well as infection trended down, creatinine stable repeat trop today lower then on admission WAN. SCr has trended down from baseline likely prerenal in the setting of acute infection lactic acidosis secondary to acute sepsis well as dehydration trended down with IV fluids, will continue IV fluid resuscitation repeat lactic negative Crohn's disease stable will continue home medications Morbid obesity. BMI 43.6 Discussed the importance of weight management, weight contributing to worsening of other comorbidities FABIOLA CPAP Time Spent with Patient Time attestation: Total time spent providing and/or coordinating discharge services: Discharge coordination time: Greater than 30 minutes Quality: Stroke Does the patient have a stroke diagnosis?: No Physical Exam Vital Signs: Vital Signs: Last Vital Signs Temp 98.3 F 06/26/21 07:15 Pulse 77 06/26/21 07:15 Resp 20 06/26/21 07:15 BP 123/62 06/26/21 07:15 Pulse Ox 97 06/26/21 07:15 BMI result Body Mass Index 43.5 Appearing in no acute distress head is normocephalic atraumatic eyes pupils are PERRLA sclera is anicteric mouth throat mucous membranes are intact and moist neck is supple no lymphadenopathy, no JVD noted lung sounds are clear to auscultation heart regular rate rhythm, clear S1, S2 positive bowel sounds, abdomen is soft, nontender neuro patient is alert x3, no focal deficits DS: Data Data Completed and Pending Labs on day of discharge: Laboratory Results - last 24 hr 06/21/21 06/26/21 22:54 05:47 PT 37.6 H INR 3.2 H Hepatitis A IgM Ab Nonreactive Preliminary micro results at discharge 06/22/21 16:07 Blood Culture - Preliminary Blood - Venous No growth after 48 hours. 06/22/21 16:07 Blood Culture - Preliminary Blood - Venous No growth after 48 hours. Discharge Plan Discharge Anticipated Discharge Date/Time: 06/26/21 09:50 Patient Disposition: Home, Self-Care Discharge Diagnosis: Sepsis secondary to HCAP Chronic cholecystitis Afib RVR HFpEF WAN Referrals: Isabel Tilley MD [Primary Care Provider] - 1 Week Discharge Medications: Continued albuterol sulfate [ProAir HFA] 90 mcg/actuation HFA aerosol inhaler 2 puff inhalation Q4H PRN (Reason: shortness of breath or wheezing) Qty: 17 2RF furosemide 20 mg tablet 20 mg PO DAILY Qty: 90 3RF Fasenra 30 mg/mL syringe 30 mg subcut Q8W 0RF warfarin 5 mg tablet 5 mg PO MOTH 0RF Protocol: Dose Management Condition: Thursday (Week One) Dose/Route: 2.5 mg Instruction: 0.5 x 5 mg tablets Condition: Thursday Dose/Route: 5 mg Instruction: 1 x 5 mg tablet Condition: Thursday Dose/Route: 2.5 mg Instruction: 0.5 x 5 mg tablets Condition: Thursday Dose/Route: 2.5 mg Instruction: 0.5 x 5 mg tablets Condition: Dose/Route: 5 mg Instruction: 1 x 5 mg tablet Condition: Thursday Dose/Route: 2.5 mg Instruction: 0.5 x 5 mg tablets Condition: Thursday Dose/Route: 2.5 mg Instruction: 0.5 x 5 mg tablets Condition: Thursday ( Two) Dose/Route: 2.5 mg Instruction: 0.5 x 5 mg tablets Condition: Thursday Dose/Route: 5 mg Instruction: 1 x 5 mg tablet Condition: Thursday Dose/Route: 2.5 mg Instruction: 0.5 x 5 mg tablets Condition: Thursday Dose/Route: 2.5 mg Instruction: 0.5 x 5 mg tablets Condition: Dose/Route: 5 mg Instruction: 1 x 5 mg tablet Condition: Thursday Dose/Route: 2.5 mg Instruction: 0.5 x 5 mg tablets Condition: Thursday Dose/Route: 2.5 mg Instruction: 0.5 x 5 mg tablets Protocol Text: Adjustment Start Date: Thursday06/14/21 INR Value: 1.7 INR Date: 06/14/21 Recheck Date: 06/21/21 Additional Instructions: AVOID GREENS X 3 DAYS warfarin 5 mg tablet 2.5 mg PO SUTUWEFRSA 0RF Protocol: Dose Management Condition: Thursday (Week One) Dose/Route: 2.5 mg Instruction: 0.5 x 5 mg tablets Condition: Thursday Dose/Route: 5 mg Instruction: 1 x 5 mg tablet Condition: Thursday Dose/Route: 2.5 mg Instruction: 0.5 x 5 mg tablets Condition: Thursday Dose/Route: 2.5 mg Instruction: 0.5 x 5 mg tablets Condition: Dose/Route: 5 mg Instruction: 1 x 5 mg tablet Condition: Thursday Dose/Route: 2.5 mg Instruction: 0.5 x 5 mg tablets Condition: Thursday Dose/Route: 2.5 mg Instruction: 0.5 x 5 mg tablets Condition: Thursday ( Two) Dose/Route: 2.5 mg Instruction: 0.5 x 5 mg tablets Condition: Thursday Dose/Route: 5 mg Instruction: 1 x 5 mg tablet Condition: Thursday Dose/Route: 2.5 mg Instruction: 0.5 x 5 mg tablets Condition: Thursday Dose/Route: 2.5 mg Instruction: 0.5 x 5 mg tablets Condition: Dose/Route: 5 mg Instruction: 1 x 5 mg tablet Condition: Thursday Dose/Route: 2.5 mg Instruction: 0.5 x 5 mg tablets Condition: Thursday Dose/Route: 2.5 mg Instruction: 0.5 x 5 mg tablets Protocol Text: Adjustment Start Date: Thursday06/14/21 INR Value: 1.7 INR Date: 06/14/21 Recheck Date: 06/21/21 Additional Instructions: AVOID GREENS X 3 DAYS metoprolol tartrate 25 mg tablet 25 mg PO BID@1200,2100 0RF Label Comments: only took afternoon dose yesterday cholecalciferol (vitamin D3) 25 mcg (1,000 unit) Tablet 25 mcg PO DAILY 0RF krill oil 500 mg capsule 500 mg PO DAILY 0RF Adult 50 Plus Probiotic 4 billion cell capsule 4,000 mmu cells PO DAILY 0RF Rx Instructions: administer with a meal multivitamin Tablet 1 tab PO DAILY 0RF (DME) BreatheRite MDI Spacer Spacer See Rx Instructions .ROUTE .MEDSUPPLY Qty: 1 0RF Rx Instructions: As directed balsalazide 750 mg capsule 2,250 mg PO TID 0RF budesonide-formoterol [Symbicort] 160-4.5 mcg/actuation HFA aerosol inhaler 2 puff inhalation BID 30 Days Qty: 1 6RF Discharge Orders: Discharge Order (Routine); Ordered 06/26/21 Ordered By: Liz De Leon Diet: advance to usual diet Activity on Discharge: As tolerated Stand Alone Forms: Patient Portal Discharge page Care Plan Goals: Resolution of symptoms Health Concerns: Sepsis secondary to HCAP Chronic cholecystitis Afib RVR HFpEF WAN Plan of Treatment: Follow up with primary care provider as needed Take all medications as prescribed Assessment: Seed discharge summary
--- NOTE | 2021-06-26 10:05 | P.CDIC_ITS ---
CDI Concurrent Query Documentation Clarification: PHYSICIAN'S DOCUMENTATION REQUEST Date of Query: 06/26/21 1005 Patient Name: Gorge Dave Admit Date: 06/17/21 Dear Doctor, A review of the medical record indicates additional documentation may be needed. Please review below and update the documentation accordingly. Clinical Indicators: Risk Factors/Clinical Indicators/Treatments PN: 06/24 & 06/25 - Acute mild HFpEF received one dose of IV Lasix, seen by Cardiology did not feel he was in heart failure, rec to change to home dose lasix. BNP 121 PMH: CHF Please provide further specificity regarding the most likely type and acuity of CHF you are evaluating, treating, or monitoring. Type: * Diastolic * Other ? please specify * Unable to determine Acuity: * Acute * Chronic * Unable to determine Use of terms such as suspected, likely, concern for, or probable (associated with a specific diagnosis that is being evaluated, monitored, or treated as if it exists) are acceptable and can be coded in the inpatient setting, when documented at the time of discharge. Thank you, Yesy Otoole [facility], CDIS Extension: [phone] Please use your independent medical judgment in providing your response. THIS QUERY IS PART OF THE PERMANENT MEDICAL RECORD Other Diagnosis: Chronic
[2021-06-26 10:09] LABS: Vancomycin Trough < 3.0 mcg/mL (10.0-20.0)
[2021-06-26 11:14] VITALS: BP 131/64; PULSE 87; RESP 20; TEMP 36.9; O2SAT 96
--- NOTE | 2021-06-26 11:36 | MHC.CM.PN ---
Male 66 DX AFIB RVR He is discharged today to home. No home services required. His is providing transportation home.
[2021-06-26] MEDS: Metoprolol Tartrate 50 MG TABLET PO (12:58)
[2021-06-30 00:55] LABS: Legionella Ag Urine Not Detected (Not Detected)
== END 2021-06-26 15:30 | disposition home or self-care (01) | DRG 720 ==
LOC: HO.ED 17:37 → HO.EDOVER 23:24 → HO.IMC 06-18 16:09
PROVIDERS: Internal Medicine; Physician Assistant Medical; Student in an Organized Health Care Education/Training Program; Admitting Provider Internal Medicine; Emergency Provider Internal Medicine; PCP Internal Medicine; Visit Provider Nurse Practitioner Acute Care
DX: A41.9 Sepsis, unspecified organism (principal); J96.01 Acute respiratory failure with hypoxia; I21.A1 Myocardial infarction type 2; N17.9 Acute kidney failure, unspecified; J18.9 Pneumonia, unspecified organism; I48.19 Other persistent atrial fibrillation; K81.0 Acute cholecystitis; I50.32 Chronic diastolic (congestive) heart failure; K50.90 Crohn's disease, unspecified, without complications; J43.9 Emphysema, unspecified; E86.0 Dehydration; E66.01 Morbid (severe) obesity due to excess calories; Z68.41 Body mass index [BMI] 40.0-44.9, adult; G47.33 Obstructive sleep apnea (adult) (pediatric); Z20.822 Contact with and (suspected) exposure to COVID-19; Z99.89 Dependence on other enabling machines and devices; Z79.01 Long term (current) use of anticoagulants; Z79.899 Other long term (current) drug therapy
CPT/HCPCS: 36415; 71045; 71250; 78226; 80048; 80053; 80076; 80202; 81001; 82565; 82947; 83605; 83735; 83880; 84145; 84443; 84484; 85025; 85027; 85610; 85730; 86704; 86706; 86709; 86803; 87040; 87340; 87389; 87449; 87633; 87635; 87640; 87641; 92610; 93005; 94640; 96361; 96365; 96375; 99285; 99291; A9537; J0637; J0696; J1160; J1885; J1940; J2543; J3370; J3475

== ENCOUNTER → 2021-07-01 13:48 | Outpatient (BNVA) | payer OTHER, SELFPAY | PROVIDERS: PCP Internal Medicine; Visit Provider Surgery | DX: K80.20 Calculus of gallbladder without cholecystitis without obstruction (principal); Z90.49 Acquired absence of other specified parts of digestive tract | CPT/HCPCS: 99212 ==

== ENCOUNTER → 2021-07-08 13:42 | Outpatient (BNVA) | payer OTHER, SELFPAY | PROVIDERS: PCP Internal Medicine; Referring Provider Internal Medicine; Visit Provider Internal Medicine | DX: I48.19 Other persistent atrial fibrillation (principal); G47.33 Obstructive sleep apnea (adult) (pediatric); Z71.89 Other specified counseling | CPT/HCPCS: 93005; 99212 ==

== ENCOUNTER → 2021-07-12 14:29 | Outpatient (BNVA) | payer OTHER, SELFPAY | PROVIDERS: PCP Internal Medicine; Visit Provider Internal Medicine | DX: I48.19 Other persistent atrial fibrillation (principal); Z79.01 Long term (current) use of anticoagulants; Z51.81 Encounter for therapeutic drug level monitoring | CPT/HCPCS: 85610; 99211 ==

== ENCOUNTER 2021-07-13 06:46 | Outpatient (REF) | payer OTHER, SELFPAY ==
[2021-07-13 11:27] LABS: MANUAL DIFF FLAG NO
[2021-07-13 11:39] LABS: Hemoglobin 12.5 g/dl (14.0-18.0); Imm Gran Abs Auto 0.03 X10*3/uL (0.00-0.03); Imm Gran Pct Auto 0.4 % (0.0-0.4); Lymphocytes Absolute Auto 1.7 X10*3/uL (1.2-4.9); Lymphocytes Percent Auto 21.1 % (20-40); Mean Corpuscular HGB Conc 29.1 g/dl (31.0-36.0); Mean Corpuscular Hemoglobin 25.1 pg (27.0-33.0); Mean Corpuscular Volume 86.3 fL (80.0-98.0); Mean Platelet Volume 11.2 fL (9.4-12.4); Monocytes Absolute Auto 1.1 X10*3/uL (0.1-1.2); Monocytes Percent Auto 13.8 % (2-11); Neutrophils Absolute Auto 5.1 x10*3/uL (2.0-8.3); Neutrophils Percent Auto 64.7 % (45-73); Platelet Count 280 X10*3/uL (160-400); Red Blood Count 4.98 X10*6/uL (4.60-5.80); White Blood Count 7.9 X10*3/uL (4.8-10.8)
[2021-07-13 11:53] LABS: Alanine Aminotransferase 19 U/L (0-40); Anion Gap 14 (12-20); Aspartate Amino Transferase 35 U/L (5-37); Blood Urea Nitrogen 16 mg/dL (9-16); Calcium 9.1 mg/dL (8.4-10.2); Carbon Dioxide 28 mmol/L (22-29); Chloride 103 mmol/L (96-108); Cholesterol 95 mg/dL; Estimated Glomerular Filt Rate > 60; Glucose Fasting 94 mg/dL (60-99); HDL Cholesterol 30 mg/dL; Iron 26 mcg/dL (45-160); LDL Cholesterol Calculated 51 mg/dl; Percent Iron Saturation 8 % (15-50); Potassium 4.6 mmol/L (3.3-5.1); Sodium 140 mmol/L (135-145); Total Iron Binding Capacity 341 mcg/dL (228-428); Triglycerides 70 mg/dL; Unsaturated Iron Binding 315 ug/dL
[2021-07-13 12:04] LABS: PSA,Total (Free>4and<10) 1.03 ng/mL (0.00-4.00); TSH reflex Free T4 0.97 uIU/mL (0.32-4.0)
[2021-07-13 12:36] LABS: Vitamin D 25-OH Total 40.7 ng/mL (>30)
== END 2021-07-13 06:47 | disposition home or self-care (01) ==
LOC: HO.HMGCLDS 06:46
PROVIDERS: PCP Internal Medicine; Visit Provider Internal Medicine
DX: Z00.01 Encounter for general adult medical examination with abnormal findings (principal); Z12.5 Encounter for screening for malignant neoplasm of prostate; D64.9 Anemia, unspecified; E55.9 Vitamin D deficiency, unspecified; E66.01 Morbid (severe) obesity due to excess calories; I48.19 Other persistent atrial fibrillation; K50.90 Crohn's disease, unspecified, without complications; Z79.01 Long term (current) use of anticoagulants
CPT/HCPCS: 36415; 80048; 80061; 82306; 83540; 84153; 84443; 84450; 84460; 85025

== ENCOUNTER → 2021-08-05 07:29 | Outpatient (REF) | payer OTHER, SELFPAY ==
--- NOTE | 2021-08-05 07:31 | HM_ITS ---
Conclusion: 1. Patient was monitored for total period of 3 days and 3 hours 2. Baseline rhythm is atrial fibrillation with average heart rate 92 beats per minute with maximum heart rate of 153 beats per minute with borderline rate control 3. No significant pauses or bradycardia noted 4. Very rare PVCs noted 5. No patient reported events MTDD
== END ==
LOC: HO.CARD 07:29
PROVIDERS: PCP Internal Medicine; Visit Provider Internal Medicine
DX: I48.19 Other persistent atrial fibrillation (principal)
CPT/HCPCS: 93242

== ENCOUNTER 2021-08-05 07:52 | Outpatient (REF) | payer OTHER, SELFPAY | END 2021-08-05 07:53 | disposition home or self-care (01) | LOC: HO.MDS 07:52 | PROVIDERS: Visit Provider Internal Medicine Pulmonary Disease | DX: J45.40 Moderate persistent asthma, uncomplicated (principal) | CPT/HCPCS: 96372 ==

== ENCOUNTER 2021-08-29 08:13 | Outpatient (REF) | payer OTHER, SELFPAY ==
[2021-08-29 11:22] LABS: Digoxin < 0.3 ng/mL (0.8-2.0)
== END 2021-08-29 08:14 | disposition home or self-care (01) ==
LOC: HO.LAB 08:13
PROVIDERS: PCP Internal Medicine; Visit Provider Internal Medicine
DX: I48.19 Other persistent atrial fibrillation (principal); Z79.899 Other long term (current) drug therapy
CPT/HCPCS: 36415; 80162; 93005

== ENCOUNTER 2021-10-01 13:54 | Outpatient (REF) | payer OTHER, SELFPAY | END 2021-10-01 13:55 | disposition home or self-care (01) | LOC: HO.MDS 13:54 | PROVIDERS: Visit Provider Internal Medicine Pulmonary Disease | DX: J45.40 Moderate persistent asthma, uncomplicated (principal); I48.19 Other persistent atrial fibrillation; E66.01 Morbid (severe) obesity due to excess calories; G47.33 Obstructive sleep apnea (adult) (pediatric); Z68.41 Body mass index [BMI] 40.0-44.9, adult; Z93.3 Colostomy status; Z99.89 Dependence on other enabling machines and devices; Z79.01 Long term (current) use of anticoagulants | CPT/HCPCS: 96372; 99212; J0517 ==

== ENCOUNTER 2021-10-11 08:21 | Outpatient (REF) | payer OTHER, SELFPAY ==
--- NOTE | ~2021-10-11 | XR_ITS ---
EXAMINATION: XR CHEST CLINICAL INFORMATION: Pleurisy. COMPARISON: Chest x-ray 06/17/[address] chest 06/19/2021. TECHNIQUE: 2 views of the chest were obtained. FINDINGS: There are residual patchy and linear interstitial changes in the left lower lobe retrocardiac area with small left pleural effusion. Rest of the lungs are well-expanded and clear. Heart size and perivascular is normal. No gross bony or the malleus seen. XR/XR chest 2V IMPRESSION: Residual changes from chest x-ray 06/16/2021.. This may represent underlying scarring or atelectasis. Consider outpatient CT chest without contrast for further evaluation to exclude any underlying lesion.
== END 2021-10-11 08:22 | disposition home or self-care (01) ==
LOC: HO.HMGCX 08:21
PROVIDERS: PCP Internal Medicine; Visit Provider Internal Medicine
DX: R09.1 Pleurisy (principal)
CPT/HCPCS: 71046

== ENCOUNTER 2021-10-23 10:39 | Outpatient (REF) | payer OTHER, SELFPAY ==
--- NOTE | ~2021-10-23 | CT_ITS ---
EXAMINATION: CT CHEST WITHOUT CONTRAST CLINICAL INFORMATION: Residual and linear interstitial changes. Follow up pneumonia. COMPARISON: Chest x-ray 10/11/2021. TECHNIQUE: Multidetector volumetric CT imaging of the chest was done. Axial MIP volume rendering provided. Sagittal and coronal reformatted images were obtained. This CT examination was performed using dose optimization techniques as appropriate, variously including the following: *Automated exposure control *Adjustment of mA and/or kV according to patient size (this includes techniques or standardized protocols for targeted exams where dose is matched to indication/reason for exam; i.e. extremities or head) *Use of iterative reconstruction technique DLP: 547 mGy-cm FINDINGS: ROLL TESTER: Unremarkable. LUNGS: There is a punctate 2 mm calcified nodule left upper lobe axial image 101/7, stable. Previously seen left lower lobe infiltrative pneumonia has significantly improved with small residual changes of linear fine interstitial prominence in the superior segment left upper lobe. Ground-glass attenuation with peripheral interstitial reticular thickening in the anterior segments of both upper lobes are noted. These findings are slightly more prominent than the previous study. There is left lower lobe posterior basal interstitial thickening likely scarring or atelectasis. There is loss of left lung volume. The right lung is clear. There are tiny 1 mm calcified densities likely small granulomas. MEDIASTINUM: The thyroid lobes are symmetric and normal. The central trachea and the bronchi are widely patent. Heart size and the great vessels are normal caliber. No pericardial effusion seen. No abnormal size mediastinal or hilar lymph node seen. PLEURA: There is mild right posterior pleural thickening with calcification, unchanged. Question asbestosis exposure. AXILLA: No lymphadenopathy. UPPER ABDOMEN: The liver is mildly attenuated. Otherwise visualized liver, spleen and pancreas are unremarkable. The bilateral adrenal glands appear unremarkable. OSSEOUS STRUCTURES: There is anterior longitudinal calcification throughout the thoracic spine with exaggerated thoracic kyphosis but no acute fracture or lytic process. CT/CT chest wo con IMPRESSION: Interval resolution of left lower lobe infiltrate with residual scarring and atelectasis left lung base. There is loss of left lung volume. There is anterior segment upper lobe ground-glass attenuation with peripheral interstitial thickening or scarring, new since previous study. No new acute consolidation seen. Fleischner guidelines were followed.
== END 2021-10-23 10:40 | disposition home or self-care (01) ==
LOC: HO.CT 10:39
PROVIDERS: PCP Internal Medicine; Visit Provider Internal Medicine
DX: R93.89 Abnormal findings on diagnostic imaging of other specified body structures (principal)
CPT/HCPCS: 71250

== ENCOUNTER 2021-11-16 14:08 | Inpatient (IN) | payer OTHER, SELFPAY ==
[2021-11-16] VITALS (7 sets, daily range): BP systolic 90–121; BP diastolic 52–74; PULSE 98–116; RESP 18–30; TEMP 37.3–39.3; O2SAT 92–96; BMI 43.7
--- NOTE | ~2021-11-16 | CT_ITS ---
EXAMINATION: CT ABDOMEN AND PELVIS WITHOUT CONTRAST CLINICAL INFORMATION: Fever and sepsis rule out necrotizing fasciitis COMPARISON: 06/05/2021 TECHNIQUE: Multidetector volumetric imaging was performed from the superior aspect of the liver through the pubic symphysis. Sagittal and coronal reformatted images were obtained on the technologist's workstation. This CT examination was performed using dose optimization techniques as appropriate, variously including the following: *Automated exposure control *Adjustment of mA and/or kV according to patient size (this includes techniques or standardized protocols for targeted exams where dose is matched to indication/reason for exam; i.e. extremities or head) *Use of iterative reconstruction technique DLP: 1193 mGy-cm FINDINGS: LUNG BASES: There is stable 0.8 cm lesion at the left lung base most likely scarring or atelectasis calcified pleura seen on the right there is pleural thickening on the left LIVER, GALLBLADDER, AND BILIARY TREE: Liver is heterogeneous of very low attenuation due to hepatic steatosis without intrahepatic masses or ductal dilatation. Gallbladder is contracted with calcified stone in the gallbladder neck the gallbladder is poorly visualized possibly due to wall thickening of the gallbladder, correlate with possible cholecystitis. PANCREAS: Unremarkable. SPLEEN: Liver is enlarged measured 15.4 cm. ADRENAL GLANDS: Unremarkable. KIDNEYS AND URETERS: The kidneys are normal in size, shape, and attenuation. No hydronephrosis, hydroureter, or calculi seen. No perinephric stranding. BLADDER: Bladder decompressed without stones or masses. GASTROINTESTINAL TRACT: There are postsurgical changes with anastomosis in the ileocecal area and sigmoid: Appendix is not seen. Mesentery unremarkable. ABDOMINAL WALL: There is colostomy seen on the left and there is paraumbilical fat-containing hernia surgical sutures seen in the abdominal wall. LYMPH NODES: Normal. VASCULAR: Unremarkable. PELVIC VISCERA: Unremarkable. OSSEOUS STRUCTURES: Changes of ankylosing spondylosis in the lumbar and partially visualized thoracic spine spine associated with fusion of sacroiliac joints. CT/CT abdomen pelvis wo con IMPRESSION: Limited evaluation of gallbladder due to contraction, with but questionably thickened of the wall and pericholecystic fluid collection Hepatic steatosis and splenomegaly. Ankylosing spondylosis Colon resection with colostomy Fleischner guidelines were followed.
--- NOTE | ~2021-11-16 | XR_ITS ---
EXAMINATION: XR CHEST CLINICAL INFORMATION: Fever. COMPARISON: Chest radiograph 10/11/2021. TECHNIQUE: Frontal view of the chest was obtained. FINDINGS: Stable appearance of the cardiomediastinal silhouette. Increased patchy airspace opacities in the retrocardiac region when compared to radiograph from 10/11/2021. No pleural effusion. No pneumothorax. No discrete acute osseous abnormalities. EKG wires overlie the chest. XR/XR chest 1V IMPRESSION: Increased patchy airspace opacities in the retrocardiac region, concerning for pneumonia. Recommend repeat imaging after treatment.
--- NOTE | 2021-11-16 14:12 | ECG_ITS ---
Test Reason : tachycardia Blood Pressure : / mmHG Vent. Rate : 112 BPM Atrial Rate : 000 BPM P-R Int : 000 ms QRS Dur : 076 ms QT Int : 318 ms P-R-T Axes : 000 -26 -23 degrees QTc Int : 434 ms Atrial fibrillation with rapid ventricular response Inferior infarct , age undetermined Abnormal ECG When compared with ECG of 17-JUN-2021 22:18, Inferior infarct is now Present Non-specific change in ST segment in Inferior leads Non-specific change in ST segment in Lateral leads Referred By: Generic ED Physician Electronically Signed By:JENNIFER KEY
[2021-11-16 14:46] LABS: MANUAL DIFF FLAG NO
[2021-11-16 14:47] LABS: Basophils Percent Auto 0.1 % (0-2); Hematocrit 43.3 % (42.0-52.0); Hemoglobin 13.3 g/dl (14.0-18.0); Imm Gran Abs Auto 0.08 X10*3/uL (0.00-0.03); Imm Gran Pct Auto 0.6 % (0.0-0.4); Lymphocytes Absolute Auto 0.6 X10*3/uL (1.2-4.9); Lymphocytes Percent Auto 4.9 % (20-40); Mean Corpuscular HGB Conc 30.7 g/dl (31.0-36.0); Mean Corpuscular Hemoglobin 25.3 pg (27.0-33.0); Mean Corpuscular Volume 82.5 fL (80.0-98.0); Mean Platelet Volume 9.9 fL (9.4-12.4); Monocytes Absolute Auto 0.6 X10*3/uL (0.1-1.2); Monocytes Percent Auto 4.6 % (2-11); Neutrophils Absolute Auto 11.4 x10*3/uL (2.0-8.3); Neutrophils Percent Auto 89.8 % (45-73); Platelet Count 230 X10*3/uL (160-400); Red Blood Count 5.25 X10*6/uL (4.60-5.80); Red Cell Distribution Width 17.2 % (11.0-16.0); White Blood Count 12.7 X10*3/uL (4.8-10.8)
[2021-11-16 14:52] LABS: COVID-19 Test Negative (Negative)
[2021-11-16 14:58] LABS: Lactic Acid 1.8 mmol/L (0.5-2.0)
[2021-11-16 15:04] LABS: Alanine Aminotransferase 21 U/L (0-40); Albumin Level 3.5 g/dL (3.5-5.0); Alkaline Phosphatase 125 U/L (39-117); Anion Gap 15 (12-20); Aspartate Amino Transferase 32 U/L (5-37); Bilirubin Total 1.4 mg/dL (0.0-1.0); Blood Urea Nitrogen 12 mg/dL (9-16); Calcium 8.6 mg/dL (8.4-10.2); Carbon Dioxide 24 mmol/L (22-29); Chloride 102 mmol/L (96-108); Creatinine Clr Calc Pharmacy 96.8; Estimated Glomerular Filt Rate > 60; Glucose Random 119 mg/dL (60-115); Sodium 137 mmol/L (135-145); Total Protein 7.3 g/dL (6.5-8.0)
--- NOTE | 2021-11-16 15:20 | PC.NURSE ---
Dr spencer made aware of pts temp (99.4), tachycardic at 120, and hypotensive 90/52 (66)
--- NOTE | 2021-11-16 15:22 | PC.NURSE ---
Blood cultures and lab work completed while pt in the waiting room at approx 1430. pt federico back to the ER room 11 at 1510 - made sepsis alert at 1518. awaiting order for antibiotics and further IVF orders.
[2021-11-16] MEDS: 0.9 % Sodium Chloride 1,000 ML 999 ML IV (15:54)
[2021-11-16] MEDS: Piperacillin Sodium/Tazobactam 3.375 GM in 0.9 % Sodium Chloride 50 ML IV (15:57)
--- NOTE | 2021-11-16 15:58 | ED.GENADULT ---
HPI - General Adult General Chief complaint: Dyspnea Stated complaint: diff breathing Time Seen by Provider: 11/16/21 15:24 Source: patient and family () Mode of arrival: ambulatory Limitations: no limitations History of Present Illness HPI narrative: 66-year-old male came in for evaluation of fever, feeling generalized weakness. No coughing, no abdominal pain, no nausea, no vomiting, no SOB, no CP, no dysuria, no urinary frequency. Patient had history of Crohn's disease status post colectomy and colostomy, patient been having anal ulcers, due to Crohn's disease, patient reported drainage from his anus that been for a year. Related Data Home Medications Medication Instructions Recorded Confirmed balsalazide 750 mg capsule 2,250 mg PO TID 03/02/20 10/01/21 krill oil 500 mg capsule 500 mg PO DAILY 09/11/20 10/01/21 lactobacillus combination no.9 4 4,000 mmu cells PO DAILY 09/11/20 10/01/21 billion cell capsule (Adult 50 Plus Probiotic) multivitamin 1 tab PO DAILY 09/11/20 10/01/21 cholecalciferol (vitamin D3) 25 25 mcg PO DAILY 06/05/21 10/01/21 mcg (1,000 unit) tablet Previous Rx's Medication Instructions Recorded inhalational spacing device #1 ea 09/11/20 (BreatheRite MDI Spacer) Symbicort 160 mcg-4.5 2 puff inhalation BID 30 days #1 ea 06/11/21 mcg/actuation HFA aerosol inhaler (budesonide-formoterol) furosemide 20 mg tablet 20 mg PO DAILY #90 tabs 06/13/21 apixaban 5 mg tablet (Eliquis) 5 mg PO BID 90 days #180 tabs 07/08/21 metoprolol tartrate 50 mg tablet 50 mg PO BID #180 tabs 07/08/21 albuterol sulfate 90 mcg/actuation 2 puff inhalation Q4H PRN 07/11/21 aerosol inhaler (ProAir HFA) shortness of breath or wheezing #17 grams ferrous fumarate 325 mg (106 mg 325 mg PO DAILY #90 tabs 07/17/21 iron) tablet nystatin-triamcinolone 100,000 1 appl topical BID 10 days #30 07/17/21 unit/g-0.1 % topical cream grams digoxin 125 mcg (0.125 mg) tablet 125 mcg PO DAILY 30 days #30 tabs 08/15/21 azithromycin 250 mg tablet See Rx Instructions PO .COMPLEX #6 10/11/21 tabs benralizumab 30 mg/mL subcutaneous 30 mg subcut Q8W #1 mL 11/13/21 syringe (Fasenra) Allergies Allergy/AdvReac Type Severity Reaction Status Date / Time No Known Allergies Allergy Verified 10/11/21 08:06 Review of Systems Review of Systems: All other systems are reviewed and are negative Constitutional: Reports as per HPI and Reports no additional constitutional complaints Eyes: Reports as per HPI and Reports no additional eye complaints Reports system reviewed and no additional complaints, except as documented Cardiovascular: Reports as per HPI and Reports no additional cardiovascular complaints Respiratory: Reports as per HPI and Reports no additional respiratory complaints Gastrointestinal: Reports as per HPI and Reports no additional gastrointestinal complaints Genitourinary: Reports no additional female genitourinary complaints Musculoskeletal: Reports no additional musculoskeletal complaints Skin/Breast: Reports system reviewed and no additional complaints, except as docu Psychiatric: Reports no additional psychiatric complaints Endocrine: Reports no additional endocrine complaints Hematologic/Lymphatic: Reports no additional hematologic/lymphatic complaints Allergic/Immunologic: Reports no additional allergic/immunologic complaints Reports system reviewed and no additional complaints, except as documented and Reports Abnormal speech present [facility] Past Medical History Medical History Acquired deformity of toenail Acquired hypothyroidism Anal fistula Anemia Atrial fibrillation, chronic Cholecystitis Colostomy in place Crohn disease 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 Decreased pulses in feet Empyema of left pleural space Gallstones Moderate persistent asthma Morbid obesity due to excess calories Non-STEMI (non-ST elevated myocardial infarction) Numbness and tingling of lower extremity FABIOLA on CPAP Persistent atrial fibrillation Vitamin D deficiency Surgical History History of appendectomy History of bowel resection History of creation of ostomy Family History Family History Father Emphysema lung HTN (hypertension) Pulmonary fibrosis Mother HTN (hypertension) Social History Social History Household Members: Spouse Housing: Condominium Do you presently have visiting nurse or other home services: No Alcohol intake: never Patient Tobacco Use Status: Never used Tobacco e-Cigarette/Vaping Use: Never Used Second Hand Smoke Exposure: No Use of substances other than those prescribed or required for medical reasons: No Advance Directives: Yes Advance Directives on File: Yes Advance Directives Date on File: 06/05/21 service: No Current occupational status: retired Cognitive needs: No Hearing needs: No Vision needs: No Physical Exam ED Vital Signs: Vital Signs - 24 hr 11/16/21 14:13 11/16/21 15:12 11/16/21 16:02 Temperature 102.8 F H 99.4 F Pulse Rate 110 H 116 H 100 Respiratory Rate 24 H 20 30 H Blood Pressure 113/70 90/52 L 107/62 Pulse Oximetry 95 95 93 Oxygen Delivery Method Room Air Room Air Room Air BMI result Body Mass Index 43.7 Vital signs have been reviewed as appeared to be correct. Blood pressure normal. Heart rate normal. Respiration rate normal. Temperature elevated. Oxygen saturation normal. Appearance: Alert. Oriented X3. No acute distress. Head: Normal external exam. Normocephalic. Atraumatic. No Locke signs noted. No raccoon eyes noted Eyes: PERRLA. EOMI. Conjunctiva and sclera normal. Eyelids normal. ENT: TM's Normal. Pharynx normal. Uvula midline. Moist mucous membranes. No trismus noted. No drooling noted. No muffled voice noted. Neck: Normal inspection. Neck supple. FROM. No adenopathy. Thyroid Normal. No meningeal signs. No neck mass noted. CVS: Normal heart rate and rhythm. Heart sound normal. No murmurs noted. Pulses normal throughout. Respiratory: No respiratory distress. Painless inspiration. Breath sounds normal. Decreased breathing sounds on the left lower lung zuluaga, crackles at the left lower lung field.. Chest nontender. No accessory muscle usage noted or decreased air movement noted. Abdomen: Soft and nontender, left abdominal colostomy with stool drainage and gas. Bowel sounds normal in all 4 quadrants. No distention noted. No organomegaly noted. No visible injury noted. Rectal exam: Redness and hotness around anus with foul drainage, no fluctuation. Back: No CVA tenderness. Full range of motion noted. Skin: Skin warm and dry. Normal skin color. Normal skin turgor. No rashes/lesions/lacerations noted. Extremities: No lower extremity edema. Extremities exhibit normal range of motion. Extremities nontender. Neuro: Oriented X 3. Cranial nerve exam: II-XII are grossly intact No motor deficit. No sensory deficit. Reflexes normal. Course Course Course Narrative: 66-year-old male came in for fever and generalized weakness patient has a pneumonia and meet criteria for SIRS concern proctitis CT abdomen and pelvis is pending. Will admit the patient for IV fluids/antibiotic. CT pending rule out necrotizing fasciitis signed out to Dr. Flores to check on the CT. Medical Decision Making Medical Records Medical records reviewed: Yes I reviewed the patient's medical records. Lab Data Lab results reviewed: Yes I reviewed the patient's lab results. Result diagrams: 11/16/21 14:37 11/16/21 14:37 Labs: Lab Results 11/16/21 11/16/21 11/16/21 Range/Units 14:28 14:37 14:37 WBC 12.7 H (4.8-10.8) X10*3/uL RBC 5.25 (4.60-5.80) X10*6/uL Hgb 13.3 L (14.0-18.0) g/dl Hct 43.3 (42.0-52.0) % MCV 82.5 (80.0-98.0) fL MCH 25.3 L (27.0-33.0) pg MCHC 30.7 L (31.0-36.0) g/dl RDW 17.2 H (11.0-16.0) % Plt Count 230 (160-400) X10*3/uL MPV 9.9 (9.4-12.4) fL Immature Gran % (Auto) 0.6 H (0.0-0.4) % Neut % (Auto) 89.8 H (45-73) % Lymph % (Auto) 4.9 L (20-40) % [place] % (Auto) 4.6 (2-11) % Eos % (Auto) 0.0 (0-4) % Baso % (Auto) 0.1 (0-2) % Lymph # (Auto) 0.6 L (1.2-4.9) X10*3/uL [place] # (Auto) 0.6 (0.1-1.2) X10*3/uL Eos # (Auto) 0.0 (0.0-0.4) X10*3/uL Baso # (Auto) 0.0 (0.0-0.2) X10*3/uL Abs Immat Gran (auto) 0.08 H (0.00-0.03) X10*3/uL Absolute Neuts (auto) 11.4 H (2.0-8.3) x10*3/uL Absolute Nucleated RBC 0.000 (0.0-0.012) X10*3/uL Nucleated RBC % (auto) 0.0 (0.0-0.2) /100WBC Sodium 137 (135-145) mmol/L Potassium 4.0 (3.3-5.1) mmol/L Chloride 102 (96-108) mmol/L Carbon Dioxide 24 (22-29) mmol/L Anion Gap 15 (12-20) BUN 12 (9-16) mg/dL Creatinine 1.08 (0.5-1.4) mg/dL Estim Creat Clear Calc 96.8 Estimated GFR > 60 Random Glucose 119 H D (60-115) mg/dL Lactic Acid (0.5-2.0) mmol/L Calcium 8.6 (8.4-10.2) mg/dL Total Bilirubin 1.4 H (0.0-1.0) mg/dL AST 32 (5-37) U/L ALT 21 (0-40) U/L Alkaline Phosphatase 125 H D (39-117) U/L Total Protein 7.3 D (6.5-8.0) g/dL Albumin 3.5 D (3.5-5.0) g/dL Urine Color Urine Appearance Urine pH (5.0-8.0) Ur Specific [place] (1.005-1.025) Urine Protein (Neg-Trace) mg/dL Urine Glucose (UA) (Negative) mg/dL Urine Ketones (Negative) mg/dL Urine Blood (Negative) Urine Nitrite (Negative) Ur Leukocyte Esterase (Negative) Urine RBC (0-2) /HPF Urine WBC (0-5) /HPF Ur Squamous Epith Cells (0-2) /HPF Urine Bacteria (None Seen) Hyaline Casts (0-2) /LPF COVID-19 (LALITHA) Negative (Negative) COVID-19 Clin Com See Note 11/16/21 11/16/21 Range/Units 14:37 15:50 WBC (4.8-10.8) X10*3/uL RBC (4.60-5.80) X10*6/uL Hgb (14.0-18.0) g/dl Hct (42.0-52.0) % MCV (80.0-98.0) fL MCH (27.0-33.0) pg MCHC (31.0-36.0) g/dl RDW (11.0-16.0) % Plt Count (160-400) X10*3/uL MPV (9.4-12.4) fL Immature Gran % (Auto) (0.0-0.4) % Neut % (Auto) (45-73) % Lymph % (Auto) (20-40) % [place] % (Auto) (2-11) % Eos % (Auto) (0-4) % Baso % (Auto) (0-2) % Lymph # (Auto) (1.2-4.9) X10*3/uL [place] # (Auto) (0.1-1.2) X10*3/uL Eos # (Auto) (0.0-0.4) X10*3/uL Baso # (Auto) (0.0-0.2) X10*3/uL Abs Immat Gran (auto) (0.00-0.03) X10*3/uL Absolute Neuts (auto) (2.0-8.3) x10*3/uL Absolute Nucleated RBC (0.0-0.012) X10*3/uL Nucleated RBC % (auto) (0.0-0.2) /100WBC Sodium (135-145) mmol/L Potassium (3.3-5.1) mmol/L Chloride (96-108) mmol/L Carbon Dioxide (22-29) mmol/L Anion Gap (12-20) BUN (9-16) mg/dL Creatinine (0.5-1.4) mg/dL Estim Creat Clear Calc Estimated GFR Random Glucose (60-115) mg/dL Lactic Acid 1.8 (0.5-2.0) mmol/L Calcium (8.4-10.2) mg/dL Total Bilirubin (0.0-1.0) mg/dL AST (5-37) U/L ALT (0-40) U/L Alkaline Phosphatase (39-117) U/L Total Protein (6.5-8.0) g/dL Albumin (3.5-5.0) g/dL Urine Color Dark Yellow Urine Appearance Clear Urine pH 7.0 (5.0-8.0) Ur Specific [place] 1.025 (1.005-1.025) Urine Protein 30 (1+) H (Neg-Trace) mg/dL Urine Glucose (UA) Negative (Negative) mg/dL Urine Ketones Trace (Negative) mg/dL Urine Blood Negative (Negative) Urine Nitrite Negative (Negative) Ur Leukocyte Esterase Trace H (Negative) Urine RBC 0-2 (0-2) /HPF Urine WBC 0-5 (0-5) /HPF Ur Squamous Epith Cells 0-2 (0-2) /HPF Urine Bacteria None Seen (None Seen) Hyaline Casts 0-2 (0-2) /LPF COVID-19 (LALITHA) (Negative) COVID-19 Clin Com Imaging Data Chest x-ray: Attestation: I personally reviewed and interpreted this imaging study as follows: Radiologist's impression: Left lower lobe pneumonia. Discharge Plan Discharge Clinical Impression: Pneumonia, Systemic inflammatory response syndrome (SIRS) Patient Disposition: Admitted As Inpatient
[2021-11-16 16:09] LABS: Appearance Urine Clear; Color Urine Dark Yellow; Glucose Urine UA Negative (Negative); Leukocyte Esterase Urine Trace (Negative); Nitrite Urine Negative (Negative); Specific Gravity - Urine 1.025 (1.005-1.025); Urine Blood Negative (Negative); Urine Ketones Trace mg/dL (Negative); Urine Protein 30 (1+) mg/dL (Neg-Trace)
[2021-11-16 16:14] LABS: Bacteria Urine None Seen (None Seen); Hyaline Casts Urine 0-2 /LPF (0-2); RBC Urine 0-2 /HPF (0-2); Squamous Epithelial Cell Urine 0-2 /HPF (0-2); WBC Urine 0-5 /HPF (0-5)
--- NOTE | 2021-11-16 16:35 | PC.NURSE ---
Pt has had a difficult time with IV's. mult infiltrated or questionable iv's. finally 20 Left hand established.
[2021-11-16] MEDS: cefTRIAXone sodium 1 GM in 0.9 % Sodium Chloride 50 ML IV (17:26)
[2021-11-16] MEDS: ondansetron HCL 4 MG/2 ML VIAL IVPUSH (17:32)
--- NOTE | 2021-11-16 17:38 | PHA.MEDREC ---
Pharmacy Consult ? Medication Reconciliation Pharmacy has completed the medication reconciliation.
--- NOTE | 2021-11-16 17:40 | PM.IMHP ---
History of Present Illness Date of Service: 11/16/21 Chief Complaint: fever 66M Presented with fever. patient was feeling at baseline day prior to presentation. on day of presentation had been feeling fatigued, myalgias, and had fever of 104F. denies specific localizations. 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 reports cough and sob are at baseline. He denies any new rash or dysuria. In ED, met sepsis criteria with a temperature of 102.8 degrees and heart rate of 110 . cxr showed retrocardiac opacity, though this seems to have been present since may 2021. Review of Systems Review of Systems: Constitutional: fevers Eyes: denies blurry vision ENT: denies sore throat CVS: denies chest pain Respiratory: chronic dyspnea GI: no abdominal pain : denies dysuria MSK: denies neck pain Skin: hematoma on buttocks Neuro: denies specific motor weakness Psych: denies suicidal ideation Endocrine: denies heat/cold intolerance Hematologic: denies easy bleeding Allergy: denies hives [facility] Medical History Acquired deformity of toenail Acquired hypothyroidism Anal fistula Anemia Atrial fibrillation, chronic Cholecystitis Colostomy in place Crohn disease 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 Decreased pulses in feet Empyema of left pleural space Gallstones Moderate persistent asthma Morbid obesity due to excess calories Non-STEMI (non-ST elevated myocardial infarction) Numbness and tingling of lower extremity FABIOLA on CPAP Persistent atrial fibrillation Vitamin D deficiency Family History Father Emphysema lung HTN (hypertension) Pulmonary fibrosis Mother HTN (hypertension) Surgical History History of appendectomy History of bowel resection History of creation of ostomy Social History Household Members: Spouse Housing: Condominium Do you presently have visiting nurse or other home services: No Alcohol intake: never Patient Tobacco Use Status: Never used Tobacco e-Cigarette/Vaping Use: Never Used Second Hand Smoke Exposure: No Use of substances other than those prescribed or required for medical reasons: No Advance Directives: Yes Advance Directives on File: Yes Advance Directives Date on File: 06/05/21 service: No Current occupational status: retired Cognitive needs: No Hearing needs: No Vision needs: No Meds Allergies Allergy/AdvReac Type Severity Reaction Status Date / Time ceftriaxone AdvReac Mild Vomiting Verified 11/16/21 17:44 Active Medications: Current Medications Albuterol Sulfate (Albuterol Sulfate 90 Mcg 8 Gm Inhaler) 2 puff INHALE Q4H PRN PRN Reason: shortness of breath or wheezing Apixaban (Apixaban 5 Mg Tablet) 5 mg PO BID [facility] Balsalazide (Balsalazide Disodium 750 Mg Capsule) 2,250 mg PO TID [facility] Digoxin (Digoxin 0.125 Mg Tablet) 0.125 mg PO DAILY [facility] Furosemide (Furosemide 20 Mg Tablet) 20 mg PO DAILY@1200 [facility]; Protocol Piperacillin Sod/Tazobactam (Sod 3.375 gm/ Sodium Chloride) 50 mls @ 100 mls/hr IV Q6H [facility] Doxycycline Hyclate 100 mg/ (Sodium Chloride) 250 mls @ 166.67 mls/hr IV Q12H [facility] Metoprolol Tartrate (Metoprolol Tartrate 50 Mg Tablet) 50 mg PO BID [facility]; Protocol Multivitamins/Vitamin C (Multivitamin Tablet) 1 tab PO DAILY [facility] Non-Formulary Medication (Krill Oil) 500 mg PO DAILY [facility] Non-Formulary Medication (Lactobacillus Combination No.9 [Adult 50 Plus Probiotic]) 4,000 mmu cells PO DAILY [facility] Nystatin (Nystatin Powder 15 Gm Bottle) 1 appl TOPICAL BID [facility]; Protocol Pharmacy Consult (Consult Rx Perform Med Rec) 1 each MISCELLANE ONCE PRN PRN Reason: Consult order Vitamin D (Cholecalciferol (Vitamin D3) 25 Mcg Tablet) 25 mcg PO DAILY [facility] Home Medications Medication Instructions Recorded Confirmed Last Taken Type balsalazide 750 mg capsule 2,250 mg PO TID 03/02/20 11/16/21 11/16/21 History krill oil 500 mg capsule 500 mg PO DAILY 09/11/20 11/16/21 11/16/21 History lactobacillus combination no.9 4 4,000 mmu cells PO DAILY 09/11/20 11/16/21 11/16/21 History billion cell capsule (Adult 50 Plus Probiotic) multivitamin 1 tab PO DAILY 09/11/20 11/16/21 11/16/21 History cholecalciferol (vitamin D3) 25 25 mcg PO DAILY 06/05/21 11/16/21 11/16/21 History mcg (1,000 unit) tablet furosemide 20 mg tablet 20 mg PO DAILY@1200 11/16/21 11/16/21 11/16/21 History nystatin 100,000 unit/gram topical 1 appl topical BID 11/16/21 11/16/21 Unknown History powder Physical Exam Vital Signs and Narrative: Vital Signs: Last Vital Signs Temp 99.4 F 11/16/21 15:12 Pulse 112 H 11/16/21 17:09 Resp 18 11/16/21 17:09 BP 114/74 11/16/21 17:09 Pulse Ox 96 11/16/21 17:09 O2 Del Method 11/16/21 17:09 BMI result Body Mass Index 43.7 General: no acute distress HEENT: atraumatic Neck: normal to visual inspection CVS: S1, S2, RRR Resp: CTA bilateral Chest: non tender GI: soft, non tender, non distended, colostomy : no CVA tenderness Skin: hematoma on buttocks Extremities: no edema Neuro: Oriented X3, grossly intact Psych: cooperative Results Labs CBC and Chem 7: 11/16/21 14:37 11/16/21 14:37 Labs: Laboratory Results - last 24 hr 11/16/21 11/16/21 11/16/21 14:28 14:37 14:37 MCV 82.5 MCH 25.3 L MCHC 30.7 L RDW 17.2 H Plt Count 230 MPV 9.9 Immature Gran % (Auto) 0.6 H Neut % (Auto) 89.8 H Lymph % (Auto) 4.9 L [place] % (Auto) 4.6 Eos % (Auto) 0.0 Baso % (Auto) 0.1 Lymph # (Auto) 0.6 L [place] # (Auto) 0.6 Eos # (Auto) 0.0 Baso # (Auto) 0.0 Abs Immat Gran (auto) 0.08 H Absolute Neuts (auto) 11.4 H Absolute Nucleated RBC 0.000 Nucleated RBC % (auto) 0.0 Anion Gap 15 Estim Creat Clear Calc 96.8 Estimated GFR > 60 Random Glucose 119 H D Lactic Acid Calcium 8.6 Total Bilirubin 1.4 H AST 32 ALT 21 Alkaline Phosphatase 125 H D Total Protein 7.3 D Albumin 3.5 D Urine Color Urine Appearance Urine pH Ur Specific [place] Urine Protein Urine Glucose (UA) Urine Ketones Urine Blood Urine Nitrite Ur Leukocyte Esterase Urine RBC Urine WBC Ur Squamous Epith Cells Urine Bacteria Hyaline Casts COVID-19 (LALITHA) Negative COVID-19 Clin Com See Note 11/16/21 11/16/21 14:37 15:50 MCV MCH MCHC RDW Plt Count MPV Immature Gran % (Auto) Neut % (Auto) Lymph % (Auto) [place] % (Auto) Eos % (Auto) Baso % (Auto) Lymph # (Auto) [place] # (Auto) Eos # (Auto) Baso # (Auto) Abs Immat Gran (auto) Absolute Neuts (auto) Absolute Nucleated RBC Nucleated RBC % (auto) Anion Gap Estim Creat Clear Calc Estimated GFR Random Glucose Lactic Acid 1.8 Calcium Total Bilirubin AST ALT Alkaline Phosphatase Total Protein Albumin Urine Color Dark Yellow Urine Appearance Clear Urine pH 7.0 Ur Specific [place] 1.025 Urine Protein 30 (1+) H Urine Glucose (UA) Negative Urine Ketones Trace Urine Blood Negative Urine Nitrite Negative Ur Leukocyte Esterase Trace H Urine RBC 0-2 Urine WBC 0-5 Ur Squamous Epith Cells 0-2 Urine Bacteria None Seen Hyaline Casts 0-2 COVID-19 (LALITHA) COVID-19 Clin Com Imaging Radiologist's Impressions: Impressions Chest X-Ray 11/16/21 16:20 IMPRESSION: Increased patchy airspace opacities in the retrocardiac region, concerning for pneumonia. Recommend repeat imaging after treatment. Assessment and Plan (1) Systemic inflammatory response syndrome (SIRS): Status: Acute Plan 66M with pmh pafib, chronic diastolic chf, crohns, obesity, presented with sepsis sepsis possible recurrent pneumonia vs GI zosyn, doxy cultures tylenol pafib dig, lopressor, eliquis crohns colazal chronic diastolic chf lasix po morbid obesity weight loss recommended dvt prophylaxis - on eliquis full code of note patient received Rocephin in ED and vomited, possible adverse reaction, though has tolerated in past, will hold off on further cephalosporin for now, but can likely rechallenge in future. patient with sepsis and risk factors for further decompensation including pafib, crohns (on immunosuppressants), chf, obesity, therefore, expected to require atleast 2 midnights in hospital Quality Stroke Does the patient have a stroke diagnosis?: No VTE Prior VTE?: No VTE Risk Level:: Medical - moderate - high VTE Device Contraindication: Treatment Not Indicated VTE Drug Contraindication: N/A - Med Ordered
--- NOTE | 2021-11-16 17:48 | PC.NURSE ---
pt vomiting following administration of Ceftriaxone - zofran given IV per MAY. Dr. Cuenca made aware of situation. Ceftriaxone added to pts allergy list as an adverse reaction.
--- NOTE | 2021-11-16 17:54 | PC.NURSE ---
informed Dr. Cuenca of bp 104/56 MAp of 64. Following fluid admin 2nd BP WNL
--- NOTE | 2021-11-16 19:00 | PC.NURSE ---
RN assumed care of patient at this time.
[2021-11-16] MEDS: Doxycycline Hyclate 100 MG in 0.9 % Sodium Chloride 250 ML 166.67 MG IV (19:27)
[2021-11-16] MEDS: Metoprolol Tartrate 50 MG TABLET PO (22:57)
[2021-11-16] MEDS: Apixaban 5 MG TABLET PO (22:58)
[2021-11-16] MEDS: Balsalazide Disodium 750 MG CAPSULE 2250 MG PO (22:59)
[2021-11-17] VITALS (8 sets, daily range): BP systolic 99–126; BP diastolic 54–71; PULSE 86–113; RESP 16–26; TEMP 36–37.3; O2SAT 91–97; BMI 46.6
[2021-11-17] MEDS: Doxycycline Hyclate 100 MG in 0.9 % Sodium Chloride 250 ML 166.67 MG IV ×2 (05:59→18:45)
--- NOTE | 2021-11-17 06:19 | PC.NURSE ---
Full bed change due to patient leaking from chronic bilateral buttock wounds. Ecchymosis noted to bilateral buttocks extensively with open wounds. Sanguinous fluid leaking from wounds. ABD pad changed and provided patient with new brief. Patient cleaned up and repositioned in bed.
[2021-11-17 07:01] LABS: Hematocrit 40.3 % (42.0-52.0); Hemoglobin 11.9 g/dl (14.0-18.0); Mean Corpuscular HGB Conc 29.5 g/dl (31.0-36.0); Mean Corpuscular Hemoglobin 25.3 pg (27.0-33.0); Mean Corpuscular Volume 85.7 fL (80.0-98.0); Mean Platelet Volume 10.7 fL (9.4-12.4); Platelet Count 211 X10*3/uL (160-400); Red Cell Distribution Width 17.5 % (11.0-16.0); White Blood Count 9.4 X10*3/uL (4.8-10.8)
[2021-11-17 07:20] LABS: Anion Gap 12 (12-20); Blood Urea Nitrogen 12 mg/dL (9-16); Calcium 8.2 mg/dL (8.4-10.2); Carbon Dioxide 27 mmol/L (22-29); Chloride 104 mmol/L (96-108); Creatinine Clr Calc Pharmacy 93.3; Estimated Glomerular Filt Rate > 60; Glucose Random 104 mg/dL (60-115); Potassium 4.1 mmol/L (3.3-5.1); Sodium 139 mmol/L (135-145)
[2021-11-17] MEDS: Digoxin 0.125 MG TABLET PO (09:42)
[2021-11-17] MEDS: Multivitamin TABLET 1 TAB PO (09:42)
[2021-11-17] MEDS: Metoprolol Tartrate 50 MG TABLET PO ×2 (09:42→20:51)
[2021-11-17] MEDS: Cholecalciferol (Vitamin D3) 25 MCG TABLET PO (09:42)
[2021-11-17] MEDS: Apixaban 5 MG TABLET PO ×2 (09:43→20:51)
--- NOTE | 2021-11-17 09:54 | PC.NURSE ---
patient a/o x4 . pearrla . heart rate regular at 97 . lungs clear . abdomen round . soft . non tender . positive hyper active bowel sounds noted. patient has ostomy on right upper left abdomen that he is able to empty him self , it is producing brown loose stool . coccyx purple / red . excorated . weeping small amount of bloody draining . cleansed and covered with abd pad . patient educated to position side to side to decrease further break down . hospitalist contacted . patients aware of plan of care .
--- NOTE | 2021-11-17 10:00 | PC.NURSE ---
pt spoke to his junior ([phone]).
--- NOTE | 2021-11-17 10:06 | PC.NURSE ---
pt's sister elías steele ([phone]) called [facility] and was updated on pt status.
[2021-11-17] MEDS: Nystatin Powder 15 GM BOTTLE 1 APPL TOPICAL (10:07)
[2021-11-17] MEDS: Balsalazide Disodium 750 MG CAPSULE 2250 MG PO ×3 (10:08→22:16)
--- NOTE | 2021-11-17 10:11 | PC.NURSE ---
nystan powder applied to under abdominal fold area pink . skin intact . patient tolerated well .
--- NOTE | 2021-11-17 10:53 | HO.PM.IMPN ---
Subjective Subjective Date of Service: 11/17/21 Interval History: cc: fever interval history: improved Cardiovascular Cardiovascular: Reports no additional cardiovascular complaints Respiratory Respiratory: Reports no additional respiratory complaints Physical Exam Vital Signs: Vital Signs: Last Vital Signs Temp 98.4 F 11/17/21 09:52 Pulse 96 11/17/21 09:52 Resp 18 11/17/21 09:52 BP 119/71 11/17/21 09:52 Pulse Ox 94 11/17/21 09:52 O2 Del Method 11/17/21 09:52 BMI result Body Mass Index 43.7 General: AO X 3, no acute distress Resp: CTA bilateral, no accessory muscles used CVS: S1,S2,RRR GI: soft, non tender, non distended, colostomy Neuro: motor grossly intact, alert Psych: appropriate affect, appropriate insight skin: see picture Objective Data Active Medications Acetaminophen (Acetaminophen 325 Mg Tablet) 650 mg PO Q6H PRN PRN Reason: Pain, Mild (Pain Scale 1-3) Albuterol Sulfate (Albuterol Sulfate 90 Mcg 8 Gm Inhaler) 2 puff INHALE Q4H PRN PRN Reason: shortness of breath or wheezing Apixaban (Apixaban 5 Mg Tablet) 5 mg PO BID [facility] Last Admin: 11/17/21 09:43 Dose: 5 mg Documented By: DENIA Balsalazide (Balsalazide Disodium 750 Mg Capsule) 2,250 mg PO TID [facility] Last Admin: 11/17/21 10:08 Dose: 2,250 mg Documented By: DENIA Digoxin (Digoxin 0.125 Mg Tablet) 0.125 mg PO DAILY [facility] Last Admin: 11/17/21 09:42 Dose: 0.125 mg Documented By: DENIA Furosemide (Furosemide 20 Mg Tablet) 20 mg PO DAILY@1200 VANNESSA; Protocol Piperacillin Sod/Tazobactam (Sod 4.5 gm/ Sodium Chloride) 50 mls @ 100 mls/hr IV Q6H [facility] Last Admin: 11/17/21 09:45 Dose: 100 mls/hr Documented By: DENIA Doxycycline Hyclate 100 mg/ (Sodium Chloride) 250 mls @ 166.67 mls/hr IV Q12H [facility] Last Admin: 11/17/21 05:59 Dose: 166.67 mls/hr Documented By: HO.N-ANDET Metoprolol Tartrate (Metoprolol Tartrate 50 Mg Tablet) 50 mg PO BID [facility]ANNESSA; Protocol Last Admin: 11/17/21 09:42 Dose: 50 mg Documented By: DENIA Multivitamins/Vitamin C (Multivitamin Tablet) 1 tab PO DAILY [facility] Last Admin: 11/17/21 09:42 Dose: 1 tab Documented By: DENIA Nystatin (Nystatin Powder 15 Gm Bottle) 1 appl TOPICAL BID [facility]; Protocol Last Admin: 11/17/21 10:07 Dose: 1 appl Documented By: DENIA Pharmacy Consult (Consult Rx Perform Med Rec) 1 each MISCELLANE ONCE PRN PRN Reason: Consult order Vitamin D (Cholecalciferol (Vitamin D3) 25 Mcg Tablet) 25 mcg PO DAILY [facility] Last Admin: 11/17/21 09:42 Dose: 25 mcg Documented By: DENIA Labs CBC & Chem 7: 11/17/21 06:46 11/17/21 06:46 Labs: Laboratory Results - last 24 hr 11/16/21 11/16/21 11/16/21 14:28 14:37 14:37 MCV 82.5 MCH 25.3 L MCHC 30.7 L RDW 17.2 H Plt Count 230 MPV 9.9 Immature Gran % (Auto) 0.6 H Neut % (Auto) 89.8 H Lymph % (Auto) 4.9 L Gordon % (Auto) 4.6 Eos % (Auto) 0.0 Baso % (Auto) 0.1 Lymph # (Auto) 0.6 L Gordon # (Auto) 0.6 Eos # (Auto) 0.0 Baso # (Auto) 0.0 Abs Immat Gran (auto) 0.08 H Absolute Neuts (auto) 11.4 H Absolute Nucleated RBC 0.000 Nucleated RBC % (auto) 0.0 Anion Gap 15 Estim Creat Clear Calc 96.8 Estimated GFR > 60 Random Glucose 119 H D Lactic Acid Calcium 8.6 Total Bilirubin 1.4 H AST 32 ALT 21 Alkaline Phosphatase 125 H D Total Protein 7.3 D Albumin 3.5 D Urine Color Urine Appearance Urine pH Ur Specific Jefferson Urine Protein Urine Glucose (UA) Urine Ketones Urine Blood Urine Nitrite Ur Leukocyte Esterase Urine RBC Urine WBC Ur Squamous Epith Cells Urine Bacteria Hyaline Casts COVID-19 (LALITHA) Negative COVID-19 Clin Com See Note 11/16/21 11/16/21 11/17/21 14:37 15:50 06:46 MCV 85.7 MCH 25.3 L MCHC 29.5 L RDW 17.5 H Plt Count 211 MPV 10.7 Immature Gran % (Auto) Neut % (Auto) Lymph % (Auto) Gordon % (Auto) Eos % (Auto) Baso % (Auto) Lymph # (Auto) Gordon # (Auto) Eos # (Auto) Baso # (Auto) Abs Immat Gran (auto) Absolute Neuts (auto) Absolute Nucleated RBC 0.000 Nucleated RBC % (auto) 0.0 Anion Gap Estim Creat Clear Calc Estimated GFR Random Glucose Lactic Acid 1.8 Calcium Total Bilirubin AST ALT Alkaline Phosphatase Total Protein Albumin Urine Color Dark Yellow Urine Appearance Clear Urine pH 7.0 Ur Specific Jefferson 1.025 Urine Protein 30 (1+) H Urine Glucose (UA) Negative Urine Ketones Trace Urine Blood Negative Urine Nitrite Negative Ur Leukocyte Esterase Trace H Urine RBC 0-2 Urine WBC 0-5 Ur Squamous Epith Cells 0-2 Urine Bacteria None Seen Hyaline Casts 0-2 COVID-19 (LALITHA) COVID-19 Clin Com 11/17/21 06:46 MCV MCH MCHC RDW Plt Count MPV Immature Gran % (Auto) Neut % (Auto) Lymph % (Auto) Gordon % (Auto) Eos % (Auto) Baso % (Auto) Lymph # (Auto) Gordon # (Auto) Eos # (Auto) Baso # (Auto) Abs Immat Gran (auto) Absolute Neuts (auto) Absolute Nucleated RBC Nucleated RBC % (auto) Anion Gap 12 Estim Creat Clear Calc 93.3 Estimated GFR > 60 Random Glucose 104 Lactic Acid Calcium 8.2 L Total Bilirubin AST ALT Alkaline Phosphatase Total Protein Albumin Urine Color Urine Appearance Urine pH Ur Specific Jefferson Urine Protein Urine Glucose (UA) Urine Ketones Urine Blood Urine Nitrite Ur Leukocyte Esterase Urine RBC Urine WBC Ur Squamous Epith Cells Urine Bacteria Hyaline Casts COVID-19 (LALITHA) COVID-19 Clin Com Assessment and Plan (1) Systemic inflammatory response syndrome (SIRS): Status: Acute Plan 66M with pmh pafib, chronic diastolic chf, crohns, obesity,? presented with sepsis sepsis possible recurrent pneumonia vs acute cholecystitis (less likely, negative murphys denies pain) continue zosyn, doxy cultures tylenol pafib dig, lopressor, eliquis crohns colazal chronic diastolic chf lasix po morbid obesity weight loss recommended dvt prophylaxis - on waldois full code reason for continued hospitalization: awaiting defervenscence Quality Stroke Does the patient have a stroke diagnosis?: No VTE Prior VTE?: No VTE Risk Level:: Medical - moderate - high VTE Device Contraindication: Treatment Not Indicated VTE Drug Contraindication: N/A - Med Ordered
[2021-11-17] MEDS: Furosemide 20 MG TABLET PO (13:05)
--- NOTE | 2021-11-17 15:11 | MHC.CM.PN ---
CM MET WITH PT AND AT BEDSIDE PT REPORTS HE IS FULLY INDEPENDENT HE REPORTS HE USES A CPAP FOR DME AND HAS NO SERVICES PT HAS A HCP ON FILE COVID VACCINATED WITH PFIZER X 3 PCP: JIGAR TANNER CURRENT DC PLAN IS HOME WITH NO SERVICES TO TRANSPORT
--- NOTE | 2021-11-17 21:05 | PC.NURSE ---
Dr. Shaw informed of HR 113-129-pt received bed time dose of Metoprolol Tart 25 mg-no new orders at this time.
--- NOTE | 2021-11-17 21:14 | PC.NURSE ---
Nurse to nurse report given to donny Horton N. Patient to be transferred to bed [id number] on tele.
[2021-11-18 03:17] VITALS: BP 130/60; PULSE 79; RESP 17; TEMP 36.4; O2SAT 86
[2021-11-18] MEDS: Doxycycline Hyclate 100 MG in 0.9 % Sodium Chloride 250 ML 166.67 MG IV (06:06)
[2021-11-18 07:26] LABS: Hematocrit 39.1 % (42.0-52.0); Hemoglobin 11.5 g/dl (14.0-18.0); Mean Corpuscular HGB Conc 29.4 g/dl (31.0-36.0); Mean Corpuscular Hemoglobin 25.3 pg (27.0-33.0); Mean Corpuscular Volume 85.9 fL (80.0-98.0); Mean Platelet Volume 10.8 fL (9.4-12.4); Platelet Count 186 X10*3/uL (160-400); Red Blood Count 4.55 X10*6/uL (4.60-5.80); Red Cell Distribution Width 17.2 % (11.0-16.0); White Blood Count 8.4 X10*3/uL (4.8-10.8)
[2021-11-18 07:42] LABS: Alanine Aminotransferase 22 U/L (0-40); Albumin Level 2.9 g/dL (3.5-5.0); Alkaline Phosphatase 96 U/L (39-117); Anion Gap 12 (12-20); Aspartate Amino Transferase 31 U/L (5-37); Bilirubin Direct 0.5 mg/dL (0.0-0.5); Bilirubin Total 0.8 mg/dL (0.0-1.0); Blood Urea Nitrogen 12 mg/dL (9-16); Calcium 8.3 mg/dL (8.4-10.2); Carbon Dioxide 29 mmol/L (22-29); Chloride 103 mmol/L (96-108); Creatinine Clr Calc Pharmacy 108.5; Estimated Glomerular Filt Rate > 60; Glucose Fasting 101 mg/dL (60-99); Potassium 4.1 mmol/L (3.3-5.1); Sodium 140 mmol/L (135-145); Total Protein 6.2 g/dL (6.5-8.0)
[2021-11-18 08:00] VITALS: BP 109/62; PULSE 60; RESP 18; TEMP 36.8; O2SAT 96
[2021-11-18] MEDS: Multivitamin TABLET 1 TAB PO (08:29)
[2021-11-18] MEDS: Cholecalciferol (Vitamin D3) 25 MCG TABLET PO (08:29)
[2021-11-18] MEDS: Balsalazide Disodium 750 MG CAPSULE 2250 MG PO (08:29)
[2021-11-18] MEDS: Metoprolol Tartrate 50 MG TABLET PO (08:29)
[2021-11-18] MEDS: Digoxin 0.125 MG TABLET PO (08:29)
[2021-11-18] MEDS: Apixaban 5 MG TABLET PO (08:33)
--- NOTE | 2021-11-18 09:57 | PM.DS ---
DS: Providers Provider Date of Service: 11/18/21 Date of admission: 11/16/21 17:39 Primary care physician: Isabel Tilley MD DS: Diagnosis Discharge Diagnosis (1) Systemic inflammatory response syndrome (SIRS): Status: Acute DS: Summary Hospital Course Hospital Course: from initial hpi: Chief Complaint: fever 66M ? Presented with fever. patient was feeling at baseline day prior to presentation. on day of presentation had been feeling fatigued, myalgias, and had fever of 104F. denies specific localizations. 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 reports cough and sob are at baseline.? He denies any new rash or dysuria.? In ED,? met sepsis criteria with a temperature of 102.8 degrees and heart rate of 110 . cxr showed retrocardiac opacity, though this seems to have been present since may 2021. hospital course: Patient was admitted for sepsis possibly due to recurrent pneumonia versus acute cholecystitis. He was given Zosyn and doxycycline and sepsis resolved, cultures were negative. Patient's symptoms returned to baseline. He will be discharged on 7 more days of Augmentin and doxycycline. He should get a repeat CT chest in about 1 month to confirm clearance of retrocardiac opacity. For his paroxysmal atrial fibrillation he was continue on digoxin, Lopressor, Eliquis. For his Crohn's is continued on Colazal. First chronic diastolic CHF he was continued on Lasix. For his morbid obesity weight loss is recommended. Time Spent with Patient Time attestation: Total time spent providing and/or coordinating discharge services: Discharge coordination time: Greater than 30 minutes Quality: Safe Use of Opioids Does Pt have an Active Cancer Diagnosis on the Problem List?: No Quality: Stroke Does the patient have a stroke diagnosis?: No Physical Exam Vital Signs: Vital Signs: Last Vital Signs Temp 98.3 F 11/18/21 08:00 Pulse 60 11/18/21 08:00 Resp 18 11/18/21 08:00 BP 109/62 11/18/21 08:00 Pulse Ox 96 11/18/21 08:00 O2 Del Method 11/18/21 08:00 O2 Flow Rate 96 11/18/21 03:17 BMI result Body Mass Index 46.6 General: AO X 3, no acute distress Resp: CTA bilateral, no accessory muscles used CVS: S1,S2,RRR GI: soft, non tender, non distended, colostomy Neuro: motor grossly intact, alert Psych: appropriate affect, appropriate insight skin: see picture DS: Data Data Completed and Pending Labs on day of discharge: Laboratory Results - last 24 hr 11/18/21 11/18/21 06:44 06:44 WBC 8.4 RBC 4.55 L Hgb 11.5 L Hct 39.1 L MCV 85.9 MCH 25.3 L MCHC 29.4 L RDW 17.2 H Plt Count 186 MPV 10.8 Absolute Nucleated RBC 0.000 Nucleated RBC % (auto) 0.0 Sodium 140 Potassium 4.1 Chloride 103 Carbon Dioxide 29 Anion Gap 12 BUN 12 Creatinine 1.00 Estim Creat Clear Calc 108.5 Estimated GFR > 60 Fasting Glucose 101 H Calcium 8.3 L Total Bilirubin 0.8 Direct Bilirubin 0.5 AST 31 ALT 22 Alkaline Phosphatase 96 D Total Protein 6.2 L Albumin 2.9 L Preliminary micro results at discharge 11/16/21 14:38 Blood Culture - Preliminary Blood - Venous No growth after 24 hours. 11/16/21 14:28 Blood Culture - Preliminary Blood - Venous No growth after 24 hours. Discharge Plan Discharge Patient Disposition: Home, Self-Care Discharge Diagnosis: fever Referrals: Isabel Tilley MD [Primary Care Provider] - 1 Week Discharge Medications: New doxycycline hyclate 100 mg tablet 100 mg PO BID Qty: 14 0RF amoxicillin-pot clavulanate 875-125 mg tablet 1 tab PO Q12H Qty: 14 0RF Continued albuterol sulfate [ProAir HFA] 90 mcg/actuation HFA aerosol inhaler 2 puff inhalation Q4H PRN (Reason: shortness of breath or wheezing) Qty: 17 2RF digoxin 125 mcg (0.125 mg) tablet 125 mcg PO DAILY 30 Days Qty: 30 3RF Fasenra 30 mg/mL syringe 30 mg subcut Q8W Qty: 1 11RF cholecalciferol (vitamin D3) 25 mcg (1,000 unit) Tablet 25 mcg PO DAILY nystatin 100,000 unit/gram Powder 1 appl TOPICAL BID furosemide 20 mg tablet 20 mg PO DAILY@1200 krill oil 500 mg capsule 500 mg PO DAILY Adult 50 Plus Probiotic 4 billion cell capsule 4,000 mmu cells PO DAILY Rx Instructions: administer with a meal multivitamin Tablet 1 tab PO DAILY (DME) BreatheRite MDI Spacer Spacer See Rx Instructions .ROUTE .MEDSUPPLY Qty: 1 0RF Rx Instructions: As directed balsalazide 750 mg capsule 2,250 mg PO TID metoprolol tartrate 50 mg tablet 50 mg PO BID Qty: 180 3RF Eliquis 5 mg tablet 5 mg PO BID 90 Days Qty: 180 3RF Discharge Orders: Discharge Order (Routine); Ordered 11/18/21 Ordered By: Bogdan Cuenca Diet: Advance to usual diet Activity on Discharge: As tolerated Stand Alone Forms: Patient Portal Discharge page Care Plan Goals: recovery Health Concerns: fevers Plan of Treatment: 7 days augmentin and doxy, repeat ct chest in 1 month Assessment: see above
--- NOTE | 2021-11-18 10:09 | MHC.CM.PN ---
PATIENT HAS BEEN MEDICALLY CLEARED FOR DISCHARGE TODAY; HOME SELF-CARE IS DISPOSITION. NO IMM REQUIRED.
[2021-11-18 11:59] VITALS: BP 124/64; PULSE 83; RESP 18; TEMP 36.8; O2SAT 97
[2021-11-18] MEDS: Furosemide 20 MG TABLET PO (12:32)
--- NOTE | 2021-11-18 15:07 | P.CONWO_ITS ---
History of Present Illness Data of Consult Service Date: 11/18/21 Requesting physician: Ozzy Shaw Primary Care Provider: Isabel Tilley MD [facility] Reason for consult: right buttock/ischial wound 66-year-old male hospitalized for high fever and pneumonia, carries history of asthma and nonSTEMI. Remote history of anal fistula for which surgery was previously indicated. This was felt to be recurrent and surgical consultation was carried out as part of this hospitalization. No further fistula was identified this visit per the patient though most recent surgical consult is d ated more than one month ago. He has moderate drainage when he sits in the chair from his right buttock. We have seen him in the wound clinic before and have been able to achieve healing. He is ambulatory at home and denies prolonged sitting. Review of Systems Review of Systems: Denies fever and shortness of breath. Complains of moderate drainage from his legs. Complains of leg swelling. 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 Decreased pulses in feet Empyema of left pleural space Gallstones Moderate persistent asthma Morbid obesity due to excess calories Non-STEMI (non-ST elevated myocardial infarction) Numbness and tingling of lower extremity FABIOLA on CPAP Persistent atrial fibrillation Vitamin D deficiency Family History Father Emphysema lung HTN (hypertension) Pulmonary fibrosis Mother HTN (hypertension) Surgical History History of appendectomy History of bowel resection History of creation of ostomy Social History Household Members: Significant Other Housing: Condominium Do you presently have visiting nurse or other home services: No Alcohol intake: former Patient Tobacco Use Status: Never used Tobacco e-Cigarette/Vaping Use: Never Used Second Hand Smoke Exposure: No Advance Directives Date on File: 06/05/21 service: No Current occupational status: retired Cognitive needs: No Hearing needs: No Vision needs: No Meds Allergies Allergy/AdvReac Type Severity Reaction Status Date / Time ceftriaxone AdvReac Mild Vomiting Verified 11/16/21 17:44 Home Medications Medication Instructions Recorded Confirmed Last Taken Type balsalazide 750 mg capsule 2,250 mg PO TID 03/02/20 11/16/21 11/16/21 History krill oil 500 mg capsule 500 mg PO DAILY 09/11/20 11/16/21 11/16/21 History lactobacillus combination no.9 4 4,000 mmu cells PO DAILY 09/11/20 11/16/21 11/16/21 History billion cell capsule (Adult 50 Plus Probiotic) multivitamin 1 tab PO DAILY 09/11/20 11/16/21 11/16/21 History cholecalciferol (vitamin D3) 25 25 mcg PO DAILY 06/05/21 11/16/21 11/16/21 History mcg (1,000 unit) tablet furosemide 20 mg tablet 20 mg PO DAILY@1200 11/16/21 11/16/21 11/16/21 History nystatin 100,000 unit/gram topical 1 appl topical BID 11/16/21 11/16/21 Unknown History powder Physical Exam Vital Signs and Narrative: Vital Signs: Last Vital Signs Temp 98.2 F 11/18/21 11:59 Pulse 83 11/18/21 11:59 Resp 18 11/18/21 11:59 BP 124/64 11/18/21 11:59 Pulse Ox 97 11/18/21 11:59 O2 Del Method 11/18/21 11:59 O2 Flow Rate 96 11/18/21 03:17 BMI result Body Mass Index 46.6 The patient is dressing ready for discharge. I examined his buttocks peers the superior gluteal cleft looks remote like fungal infection for which topical antifungal lotion or powder would be most appropriate. The open area is closer to the right ischium where there is very gait it dermis and open partial thickness wound with drainage. This looks to have a friction and shear compone nt. I gave him a piece of silver alginate for home use. He has use this before. He will not be having home nursing. Results Labs CBC and Chem 7: 11/18/21 06:44 11/18/21 06:44 Labs: Laboratory Results - last 24 hr 11/18/21 11/18/21 06:44 06:44 MCV 85.9 MCH 25.3 L MCHC 29.4 L RDW 17.2 H Plt Count 186 MPV 10.8 Absolute Nucleated RBC 0.000 Nucleated RBC % (auto) 0.0 Anion Gap 12 Estim Creat Clear Calc 108.5 Estimated GFR > 60 Fasting Glucose 101 H Calcium 8.3 L Total Bilirubin 0.8 Direct Bilirubin 0.5 AST 31 ALT 22 Alkaline Phosphatase 96 D Total Protein 6.2 L Albumin 2.9 L Assessment and Plan (1) Anal fistula: Status: Acute Plan Review of the record indicates that the patient has a specialist for history of anal fistula which he can followup with after discharge. He is willing to return to the wound clinic since we have seen him before. He will call for an appointment. He will try silver alginate for increased drainage in the ischial region and antifungal topical treatment for the gluteal rash.
== END 2021-11-18 13:13 | disposition home or self-care (01) | DRG 720 ==
LOC: HO.ED 16:35 → HO.EDOVER 17:54 → HO.S3 11-17 16:44
PROVIDERS: Admitting Provider Internal Medicine; Emergency Provider Emergency Medicine; PCP Internal Medicine; Visit Provider Internal Medicine
DX: A41.9 Sepsis, unspecified organism (principal); J18.9 Pneumonia, unspecified organism; K81.0 Acute cholecystitis; I48.20 Chronic atrial fibrillation, unspecified; I50.32 Chronic diastolic (congestive) heart failure; K50.913 Crohn's disease, unspecified, with fistula; E03.9 Hypothyroidism, unspecified; E66.01 Morbid (severe) obesity due to excess calories; Z20.822 Contact with and (suspected) exposure to COVID-19; Z87.01 Personal history of pneumonia (recurrent); Z68.42 Body mass index [BMI] 45.0-49.9, adult; Z88.1 Allergy status to other antibiotic agents; Z79.01 Long term (current) use of anticoagulants; Z79.899 Other long term (current) drug therapy
CPT/HCPCS: 36415; 71045; 74176; 80048; 80053; 80076; 81001; 83605; 85025; 85027; 87040; 87635; 93005; 96361; 96374; 96375; 99285; J0696; J2405; J2543

== ENCOUNTER 2021-11-26 07:55 | Outpatient (REF) | payer OTHER, SELFPAY | END 2021-11-26 07:56 | disposition home or self-care (01) | LOC: HO.MDS 07:55 | PROVIDERS: Visit Provider Internal Medicine Pulmonary Disease | DX: J45.40 Moderate persistent asthma, uncomplicated (principal) | CPT/HCPCS: 96372; J0517 ==

== ENCOUNTER → 2021-12-05 13:45 | Outpatient (BNVA) | payer OTHER, SELFPAY | PROVIDERS: PCP Internal Medicine; Visit Provider Surgery | DX: S31.809A Unspecified open wound of unspecified buttock, initial encounter (principal); K50.113 Crohn's disease of large intestine with fistula | CPT/HCPCS: 99212 ==

== ENCOUNTER → 2021-12-10 08:47 | Outpatient (BNVA) | payer OTHER, SELFPAY | PROVIDERS: PCP Internal Medicine; Visit Provider Internal Medicine Pulmonary Disease | DX: G47.33 Obstructive sleep apnea (adult) (pediatric) (principal); D64.9 Anemia, unspecified; Z91.09 Other allergy status, other than to drugs and biological substances; Z99.89 Dependence on other enabling machines and devices | CPT/HCPCS: 99212 ==

== ENCOUNTER 2022-01-02 10:16 | Outpatient (REF) | payer OTHER, SELFPAY ==
--- NOTE | ~2022-01-02 | US_ITS ---
EXAMINATION: US PELVIC, LIMITED/FOLLOW UP CLINICAL INFORMATION: Chronic ulcer buttocks, question cavity/abscess. COMPARISON: None. TECHNIQUE: Limited imaging through the buttocks was performed. FINDINGS: Imaging through the right buttock area reveals no focal collection. Dermal soft tissues with focal hyperemia and compressible but prominent veins in the bilateral buttocks. There is an open wound in the right superficial buttock, likely a small ulcer. US/US pelvic limited IMPRESSION: Small right buttock ulcer but no evidence of fluid collection or abscess in either vertex. Prominent veins in bilateral buttocks which are compressible. There is mild edema in right buttock subdermal region.
== END 2022-01-02 10:17 | disposition home or self-care (01) ==
LOC: HO.HMGCX 10:16
PROVIDERS: PCP Internal Medicine; Visit Provider Surgery
DX: L98.412 Non-pressure chronic ulcer of buttock with fat layer exposed (principal)
CPT/HCPCS: 76857

== ENCOUNTER 2022-01-08 09:05 | Outpatient (REF) | payer OTHER, SELFPAY ==
[2022-01-08 11:17] LABS: MANUAL DIFF FLAG NO
[2022-01-08 11:21] LABS: Basophils Percent Auto 0.1 % (0-2); Hematocrit 43.3 % (42.0-52.0); Imm Gran Abs Auto 0.03 X10*3/uL (0.00-0.03); Imm Gran Pct Auto 0.4 % (0.0-0.4); Lymphocytes Absolute Auto 1.5 X10*3/uL (1.2-4.9); Lymphocytes Percent Auto 20.1 % (20-40); Mean Corpuscular Hemoglobin 25.3 pg (27.0-33.0); Mean Corpuscular Volume 84.4 fL (80.0-98.0); Mean Platelet Volume 11.3 fL (9.4-12.4); Monocytes Absolute Auto 0.8 X10*3/uL (0.1-1.2); Neutrophils Absolute Auto 5.3 x10*3/uL (2.0-8.3); Neutrophils Percent Auto 69.4 % (45-73); Platelet Count 267 X10*3/uL (160-400); Red Blood Count 5.13 X10*6/uL (4.60-5.80); Red Cell Distribution Width 16.3 % (11.0-16.0); White Blood Count 7.7 X10*3/uL (4.8-10.8)
[2022-01-08 11:31] LABS: Estimated Average Glucose 100 mg/dL; Hemoglobin A1c % 5.1 %
[2022-01-08 11:55] LABS: Alanine Aminotransferase 17 U/L (0-40); Aspartate Amino Transferase 26 U/L (5-37); Free T4 (Free Thyroxine) 1.17 ng/dL (0.71-1.85); HDL Cholesterol 31 mg/dL; Iron 38 mcg/dL (45-160); Percent Iron Saturation 9 % (15-50); Thyroid Stimulating Hormone 1.49 uIU/mL (0.32-4.0); Total Iron Binding Capacity 418 mcg/dL (228-428); Triglycerides 55 mg/dL; Unsaturated Iron Binding 380 ug/dL
[2022-01-08 12:16] LABS: Cholesterol 96 mg/dL; LDL Cholesterol Calculated 54 mg/dl
== END 2022-01-08 09:06 | disposition home or self-care (01) ==
LOC: HO.HMGCLDS 09:05
PROVIDERS: Surgery; PCP Internal Medicine; Visit Provider Internal Medicine
DX: S31.809A Unspecified open wound of unspecified buttock, initial encounter (principal); D64.9 Anemia, unspecified; E03.9 Hypothyroidism, unspecified; E66.01 Morbid (severe) obesity due to excess calories; I48.19 Other persistent atrial fibrillation; K50.113 Crohn's disease of large intestine with fistula
CPT/HCPCS: 36415; 80061; 83036; 83540; 84439; 84443; 84450; 84460; 85025; 99212

== ENCOUNTER 2022-01-21 07:44 | Outpatient (REF) | payer OTHER, SELFPAY | END 2022-01-21 07:45 | disposition home or self-care (01) | LOC: HO.MDS 07:44 | PROVIDERS: Visit Provider Internal Medicine Pulmonary Disease | DX: J45.40 Moderate persistent asthma, uncomplicated (principal) | CPT/HCPCS: 96372; J0517 ==

== ENCOUNTER 2022-04-04 08:21 | Outpatient (REF) | payer MEDICARE, MEDICAID, SELFPAY | END 2022-04-04 08:22 | disposition home or self-care (01) | LOC: HO.MDS 08:21 | PROVIDERS: Visit Provider Internal Medicine Pulmonary Disease | DX: J45.50 Severe persistent asthma, uncomplicated (principal) | CPT/HCPCS: 96372; J0517 ==

== ENCOUNTER → 2022-04-09 08:24 | Outpatient (BNVA) | payer MEDICARE, MEDICAID, SELFPAY | PROVIDERS: PCP Internal Medicine; Referring Provider Internal Medicine; Visit Provider Internal Medicine | DX: I48.91 Unspecified atrial fibrillation (principal); G47.33 Obstructive sleep apnea (adult) (pediatric); E66.01 Morbid (severe) obesity due to excess calories | CPT/HCPCS: 99212 ==

== ENCOUNTER 2022-05-26 08:46 | Outpatient (REF) | payer MEDICARE, SELFPAY | END 2022-05-26 08:47 | disposition home or self-care (01) | LOC: HO.MDS 08:46 | PROVIDERS: Visit Provider Internal Medicine Pulmonary Disease | DX: J45.50 Severe persistent asthma, uncomplicated (principal) | CPT/HCPCS: 96372; J0517 ==

== ENCOUNTER → 2022-06-03 10:13 | Outpatient (BNVA) | payer MEDICARE, MEDICAID, SELFPAY | PROVIDERS: PCP Internal Medicine; Visit Provider Internal Medicine Pulmonary Disease | DX: G47.33 Obstructive sleep apnea (adult) (pediatric) (principal); J45.40 Moderate persistent asthma, uncomplicated; Z99.89 Dependence on other enabling machines and devices; Z91.09 Other allergy status, other than to drugs and biological substances | CPT/HCPCS: Q3014 ==

== ENCOUNTER 2022-07-21 08:48 | Outpatient (REF) | payer MEDICARE, SELFPAY | END 2022-07-21 08:49 | disposition home or self-care (01) | LOC: HO.MDS 08:48 | PROVIDERS: Visit Provider Internal Medicine Pulmonary Disease | DX: J45.50 Severe persistent asthma, uncomplicated (principal) | CPT/HCPCS: 96372; J0517 ==

== ENCOUNTER 2022-07-24 09:07 | Outpatient (REF) | payer MEDICARE, SELFPAY ==
[2022-07-24 11:04] LABS: MANUAL DIFF FLAG NO
[2022-07-24 11:40] LABS: Basophils Percent Auto 0.1 % (0-2); Hematocrit 45.8 % (42.0-52.0); Hemoglobin 13.7 g/dl (14.0-18.0); Imm Gran Abs Auto 0.03 X10*3/uL (0.00-0.03); Imm Gran Pct Auto 0.4 % (0.0-0.4); Lymphocytes Absolute Auto 1.8 X10*3/uL (1.2-4.9); Lymphocytes Percent Auto 22.8 % (20-40); Mean Corpuscular HGB Conc 29.9 g/dl (31.0-36.0); Mean Corpuscular Hemoglobin 25.7 pg (27.0-33.0); Mean Corpuscular Volume 85.9 fL (80.0-98.0); Mean Platelet Volume 10.9 fL (9.4-12.4); Monocytes Absolute Auto 0.9 X10*3/uL (0.1-1.2); Monocytes Percent Auto 11.6 % (2-11); Neutrophils Absolute Auto 5.3 x10*3/uL (2.0-8.3); Neutrophils Percent Auto 65.1 % (45-73); Platelet Count 289 X10*3/uL (160-400); Red Blood Count 5.33 X10*6/uL (4.60-5.80); Red Cell Distribution Width 17.6 % (11.0-16.0); White Blood Count 8.1 X10*3/uL (4.8-10.8)
[2022-07-24 12:37] LABS: Alanine Aminotransferase 21 U/L (0-40); Aspartate Amino Transferase 26 U/L (5-37); Cholesterol 105 mg/dL; Folate 12.7 ng/mL (> or = 4.0); HDL Cholesterol 30 mg/dL; Iron 38 mcg/dL (45-160); LDL Cholesterol Calculated 62 mg/dl; Percent Iron Saturation 11 % (15-50); Total Iron Binding Capacity 334 mcg/dL (228-428); Triglycerides 67 mg/dL; Unsaturated Iron Binding 296 ug/dL; Vitamin B12 450 pg/mL (200-900); Vitamin D 25-OH Total 44.5 ng/mL (>30)
== END 2022-07-24 09:08 | disposition home or self-care (01) ==
LOC: HO.HMGCLDS 09:07
PROVIDERS: PCP Internal Medicine; Visit Provider Internal Medicine
DX: D64.9 Anemia, unspecified (principal); E66.01 Morbid (severe) obesity due to excess calories; I48.19 Other persistent atrial fibrillation; J45.40 Moderate persistent asthma, uncomplicated; K50.113 Crohn's disease of large intestine with fistula; S31.809A Unspecified open wound of unspecified buttock, initial encounter; Z79.01 Long term (current) use of anticoagulants
CPT/HCPCS: 36415; 80061; 82306; 82607; 82746; 83540; 84450; 84460; 85025

== ENCOUNTER 2022-08-20 08:51 | Emergency (ER) | payer MEDICARE, SELFPAY ==
--- NOTE | ~2022-08-20 | XR_ITS ---
EXAMINATION: XR CHEST CLINICAL INFORMATION: Chest pressure COMPARISON: Chest radiograph 11/16/2021, CT abdomen pelvis 11/16/2021 TECHNIQUE: 2 views of the chest were obtained. FINDINGS: Heart size normal. No evidence of CHF. There is mild blunting of the right costophrenic angle posteriorly consistent with a tiny pleural effusion. Calcified pleural plaque which can be seen on the prior CT bilaterally is not evident on the current study no consolidations. Pleural parenchymal scarring present at the right apex. XR/XR chest 2V IMPRESSION: No acute intrathoracic disease. Possible tiny right pleural effusion.
--- NOTE | 2022-08-20 08:53 | ECG_ITS ---
Test Reason : chest tightness Blood Pressure : / mmHG Vent. Rate : 067 BPM Atrial Rate : 000 BPM P-R Int : 000 ms QRS Dur : 086 ms QT Int : 402 ms P-R-T Axes : 000 -23 005 degrees QTc Int : 424 ms Atrial fibrillation Low voltage QRS Cannot rule out Anterior infarct , age undetermined Abnormal ECG When compared with ECG of 16-NOV-2021 14:18, Vent. rate has decreased BY 45 BPM Referred By: Generic ED Physician Electronically Signed By:VALERIA CUNNINGHAM
[2022-08-20 09:15] VITALS: BP 123/68; PULSE 67; RESP 16; TEMP 36.6; O2SAT 98; BMI 43.6
[2022-08-20 09:33] LABS: MANUAL DIFF FLAG NO
[2022-08-20 09:35] LABS: Basophils Percent Auto 0.1 % (0-2); Hematocrit 48.4 % (42.0-52.0); Hemoglobin 14.5 g/dl (14.0-18.0); Imm Gran Abs Auto 0.03 X10*3/uL (0.00-0.03); Imm Gran Pct Auto 0.3 % (0.0-0.4); Lymphocytes Percent Auto 20.9 % (20-40); Mean Corpuscular Hemoglobin 25.8 pg (27.0-33.0); Mean Platelet Volume 10.2 fL (9.4-12.4); Monocytes Percent Auto 10.5 % (2-11); Neutrophils Absolute Auto 6.4 x10*3/uL (2.0-8.3); Neutrophils Percent Auto 68.2 % (45-73); Platelet Count 242 X10*3/uL (160-400); Red Blood Count 5.63 X10*6/uL (4.60-5.80); Red Cell Distribution Width 17.3 % (11.0-16.0); White Blood Count 9.4 X10*3/uL (4.8-10.8)
[2022-08-20 09:43] LABS: INTERNATIONAL NORM RATIO 1.3 (0.9-1.1); Prothrombin Time 14.9 SEC (10.0-13.1)
--- NOTE | 2022-08-20 09:44 | ED_ITS ---
HPI - Chest Pain General Chief Complaint: Chest Pain Stated Complaint: Chest Pressure Time Seen by Provider: 08/20/22 09:30 Source: patient and RN notes reviewed Mode of arrival: ambulatory Limitations: no limitations History of Present Illness HPI narrative: This is a [id number]-male, with a past medical history of atrial fibrillation on Eliquis, hypothyroidism, Crohn's disease with colostomy, NSTEMI, FABIOLA on CPAP, who presents to the emergency department with complaints of chest pressure x 2 days. Patient states that two nights ago, >30 minutes after eating a hamburger, he noticed he had left sided chest pressure. He attributed his symptoms at that time as heartburn , however reports that the chest pressure has not resolved. He states that over the last two days he has noticed left sided tightness -like and pressure like pain that waxes and wanes in severity but does not fully resolve. He states that his asthma has been exacerbated lately and is unsure if his symptoms could be attributed to his colostomy. He denies any fevers, chills, sore throat, ear pain, cough, palpitations, abdominal pain, nausea, vomiting or diarrhea. No recent travel, surgeries, hospitalizations, blood clots. Has been taking eliquis with no missed doses. MD complaint: chest discomfort Prior episodes: No Onset: during exertion and after eating Risk Factors Coronary artery disease risk factors: none Thoracic aortic dissection risk factors: none Related Data Home Medications Medication Instructions Recorded Confirmed balsalazide 750 mg capsule 2,250 mg PO TID 03/02/20 04/09/22 krill oil 500 mg capsule 500 mg PO DAILY 09/11/20 04/09/22 lactobacillus combination no.9 4 4,000 mmu cells PO DAILY 09/11/20 04/09/22 billion cell capsule (Adult 50 Plus Probiotic) multivitamin 1 tab PO DAILY 09/11/20 04/09/22 cholecalciferol (vitamin D3) 25 25 mcg PO DAILY 06/05/21 04/09/22 mcg (1,000 unit) tablet nystatin 100,000 unit/gram topical 1 appl topical BID 11/16/21 04/09/22 powder triamcinolone acetonide 0.1 % appl topical BID PRN 07/24/22 topical cream Previous Rx's Medication Instructions Recorded inhalational spacing device #1 ea 09/11/20 (BreatheRite MDI Spacer) nystatin-triamcinolone 100,000 1 appl topical BID 10 days #30 12/20/21 unit/g-0.1 % topical cream grams benralizumab 30 mg/mL subcutaneous 30 mg subcut Q8W #1 mL 03/18/22 syringe (Fasenra) albuterol sulfate 90 mcg/actuation 2 puff inhalation Q4H PRN 04/09/22 aerosol inhaler (ProAir HFA) shortness of breath or wheezing #17 grams furosemide 20 mg tablet 20 mg PO DAILY@1200 #90 tabs 06/03/22 ferrous sulfate 325 mg (65 mg 325 mg PO DAILY #90 tabs 06/04/22 iron) tablet digoxin 125 mcg (0.125 mg) tablet 125 mcg PO DAILY 90 days #90 tabs 06/09/22 Symbicort 160 mcg-4.5 2 puff PO BID #10.2 grams 06/19/22 mcg/actuation HFA aerosol inhaler (budesonide-formoterol) apixaban 5 mg tablet (Eliquis) 5 mg PO BID 90 days #180 tabs 07/04/22 metoprolol tartrate 50 mg tablet 50 mg PO BID #180 tabs 07/04/22 Allergies Allergy/AdvReac Type Severity Reaction Status Date / Time ceftriaxone AdvReac Mild Vomiting Verified 08/20/22 09:15 Review of Systems Review of Systems: Yes all other systems are reviewed and are negative Constitutional: Constitutional: Reports as per HPI [facility] Past Medical History Medical History Acquired deformity of toenail Acquired hypothyroidism Anal fistula Anemia Atrial fibrillation, chronic Buttock wound Buttock wound Cholecystitis Colostomy in place Crohn disease Crohn's disease of perianal region with fistula 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 Decreased pulses in feet Empyema of left pleural space Erythema intertrigo Gallstones Moderate persistent allergic asthma Morbid obesity due to excess calories Non-STEMI (non-ST elevated myocardial infarction) Numbness and tingling of lower extremity FABIOLA on CPAP Persistent atrial fibrillation Vitamin D deficiency Surgical History History of appendectomy History of bowel resection History of creation of ostomy Family History Family History Father Emphysema lung HTN (hypertension) Pulmonary fibrosis Mother HTN (hypertension) Social History Social History Household Members: Significant Other Housing: Condominium Do you presently have visiting nurse or other home services: No Alcohol intake: former Patient Tobacco Use Status: Never used Tobacco e-Cigarette/Vaping Use: Never Used Second Hand Smoke Exposure: No Advance Directives: Yes Advance Directives on File: Yes Advance Directives Date on File: 06/05/21 service: No Current occupational status: retired Cognitive needs: No Hearing needs: No Vision needs: Yes Physical Exam Vital Signs: Vital Signs: Last Vital Signs Temp 98 F 08/20/22 09:15 Pulse 74 08/20/22 10:55 Resp 18 08/20/22 10:55 BP 104/51 L 08/20/22 10:55 Pulse Ox 96 08/20/22 10:55 O2 Del Method Room Air 08/20/22 10:55 BMI result Body Mass Index 43.6 Const: General: cooperative, comfortable and no acute distress Orientation/consciousness: patient oriented x3 Limitations: no limitations HEENT: Head: Yes normal to inspection, Yes normocephalic and Yes atraumatic Ears: hearing grossly normal bilaterally General nose exam: Normal external nose present Face and sinus: Yes normal facial exam Mouth: Normal oral and palatal mucosa present, oropharynx normal and moist mucous membranes Throat: Yes posterior oropharynx normal Eyes: General: appearance normal, both eyes and all related structures Eyelids: Yes eyelids normal Conjunctivae: conjunctivae normal Sclerae: sc lerae normal Pupils: Equal, round and reactive pupils present EOM: EOMs intact bilaterally Neck: Neck: Yes normal visual inspection, Yes full ROM and Yes no lymphadenopathy Lymphatic: no lymphadenopathy noted Chest: Chest palpation & inspection: normal inspection of the chest and normal palpation of entire chest wall Resp: Effort & Inspection: normal respiratory effort and able to speak in complete sentences Auscultation: clear to auscultation bilaterally, no crackles, no rales, no rhonchi and no wheezes Cardio: Other: irregularly irregular rate and rhythm Jugular venous distension: no JVD Heart sounds: S1 normal heart sound present and S2 normal heart sound present GI: Inspection: Yes normal to inspection Skin: General skin exam: no rashes or lesions noted Trauma: no lacerations or abrasions Wounds: no wounds Neuro: General: patient oriented x3 and moves all extremities Cranial nerves: Yes Equal, round and reactive pupils present Extrem: General: Yes normal to inspection, Yes no pedal edema and Yes no calf tenderness Right upper extremity: normal to inspection Left upper extremity: normal to inspection Right lower extremity: normal to inspection Left lower extremity: normal to inspection Course Reevaluation(s) Reevaluation #1: Patient re-evaluated. Discussed work up with patient. He states that he is now realizing that he was coughing several days ago and believes that he strained his chest wall. He states that he notices the chest pain when he is moving around and moving his chest wall. 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 Chest x-ray revealing tiny pleural effusion , this is unlikely causing patient's symptoms, discussed this with patient, and advised to follow up with PCP about this, he understands and agrees with plan. Patient understands and agrees with this plan. Vital signs stable, pt has no chest pain at this time, and has no chest pain at rest. Time: 13:03 Medical Decision Making Medical Decision Making [facility] Narrative: This is a 42-zmlq-tsx-male, with a past medical history of atrial fibrillation on Eliquis, hypothyroidism, Crohn's disease with colostomy, NSTEMI, FABIOLA on CPAP, who presents to the emergency department with complaints of chest pressure x 2 days. On examination, patient's blood pressure 123/68, afebrile, and all other VS are stable. Chest pressure has been constant for the last 2 days, waxing and waning, worsening with movement. Symptoms appears to be MSK related, but given age, hx of NSTEMI, will perform cardiac work up for rule out of ACS. On examination, patient is well appearing, in no acute distress. Patient has a heart score of 3. Plan: EKG, chest x-ray, labs ordered. Differential Diagnosis Differential Diagnoses: The differential diagnosis associated with the presentation includes ACS, costochondritis, muscle strain, pneumothorax, pneumonia , CHF Admission/Observation Consideration of admission/observation: Escalation of care including admission/observation considered Lab Data [facility] Lab Attestation statement: I reviewed the patient's lab results. 08/20/22 09:28 08/20/22 09:28 Labs: Lab Results 08/20/22 08/20/22 08/20/22 Range/Units 09:28 09:28 09:28 WBC 9.4 (4.8-10.8) X10*3/uL RBC 5.63 (4.60-5.80) X10*6/uL Hgb 14.5 (14.0-18.0) g/dl Hct 48.4 (42.0-52.0) % MCV 86.0 (80.0-98.0) fL MCH 25.8 L (27.0-33.0) pg MCHC 30.0 L (31.0-36.0) g/dl RDW 17.3 H (11.0-16.0) % Plt Count 242 (160-400) X10*3/uL MPV 10.2 (9.4-12.4) fL Immature Gran % (Auto) 0.3 (0.0-0.4) % Neut % (Auto) 68.2 (45-73) % Lymph % (Auto) 20.9 (20-40) % Prairie % (Auto) 10.5 (2-11) % Eos % (Auto) 0.0 (0-4) % Baso % (Auto) 0.1 (0-2) % Lymph # (Auto) 2.0 (1.2-4.9) X10*3/uL [place] # (Auto) 1.0 (0.1-1.2) X10*3/uL Eos # (Auto) 0.0 (0.0-0.4) X10*3/uL Baso # (Auto) 0.0 (0.0-0.2) X10*3/uL Abs Immat Gran (auto) 0.03 (0.00-0.03) X10*3/uL Absolute Neuts (auto) 6.4 (2.0-8.3) x10*3/uL Absolute Nucleated RBC 0.000 (0.0-0.012) X10*3/uL Nucleated RBC % (auto) 0.0 (0.0-0.2) /100WBC PT 14.9 H (10.0-13.1) SEC INR 1.3 H (0.9-1.1) Sodium 140 (135-145) mmol/L Potassium 4.8 (3.3-5.1) mmol/L Chloride 104 (96-108) mmol/L Carbon Dioxide 29 (22-29) mmol/L Anion Gap 12 (12-20) BUN 14 (9-16) mg/dL Creatinine 1.08 (0.5-1.4) mg/dL Estim Creat Clear Calc 89.8 Estimated GFR > 60 Random Glucose 98 (60-115) mg/dL Calcium 9.2 D (8.4-10.2) mg/dL Troponin I High Sens (<3.5-35.0) ng/L B-Natriuretic Peptide (<100) pg/mL 08/20/22 08/20/22 08/20/22 Range/Units 09:28 09:28 12:20 WBC (4.8-10.8) X10*3/uL RBC (4.60-5.80) X10*6/uL Hgb (14.0-18.0) g/dl Hct (42.0-52.0) % MCV (80.0-98.0) fL MCH (27.0-33.0) pg MCHC (31.0-36.0) g/dl RDW (11.0-16.0) % Plt Count (160-400) X10*3/uL MPV (9.4-12.4) fL Immature Gran % (Auto) (0.0-0.4) % Neut % (Auto) (45-73) % Lymph % (Auto) (20-40) % [place] % (Auto) (2-11) % Eos % (Auto) (0-4) % Baso % (Auto) (0-2) % Lymph # (Auto) (1.2-4.9) X10*3/uL [place] # (Auto) (0.1-1.2) X10*3/uL Eos # (Auto) (0.0-0.4) X10*3/uL Baso # (Auto) (0.0-0.2) X10*3/uL Abs Immat Gran (auto) (0.00-0.03) X10*3/uL Absolute Neuts (auto) (2.0-8.3) x10*3/uL Absolute Nucleated RBC (0.0-0.012) X10*3/uL Nucleated RBC % (auto) (0.0-0.2) /100WBC PT (10.0-13.1) SEC INR (0.9-1.1) Sodium (135-145) mmol/L Potassium (3.3-5.1) mmol/L Chloride (96-108) mmol/L Carbon Dioxide (22-29) mmol/L Anion Gap (12-20) BUN (9-16) mg/dL Creatinine (0.5-1.4) mg/dL Estim Creat Clear Calc Estimated GFR Random Glucose (60-115) mg/dL Calcium (8.4-10.2) mg/dL Troponin I High Sens < 2.7 < 2.7 (<3.5-35.0) ng/L B-Natriuretic Peptide 61 (<100) pg/mL Independent Interpretation I performed an independent interpretation of an: EKG Interpretation: EKG atrial fibrillation with a ventricular rate 67bpm, QTC 424.poor r-wave in V1, V, V3, similar appearing EKG from previous. No STEMI. Radiology Impression Discussion of test interpretation with radiology: I have reviewed the radiologist's reading. Radiologist Impression: EXAMINATION: XR CHEST CLINICAL INFORMATION: Chest pressure COMPARISON: Chest radiograph 11/16/2021, CT abdomen pelvis 11/16/2021 TECHNIQUE: 2 views of the chest were obtained. FINDINGS: Heart size normal. No evidence of CHF. There is mild blunting of the right costophrenic angle posteriorly consistent with a tiny pleural effusion. Calcified pleural plaque which can be seen on the prior CT bilaterally is not evident on the current study no consolidations. Pleural parenchymal scarring present at the right apex. XR/XR chest 2V IMPRESSION: No acute intrathoracic disease. Possible tiny right pleural effusion. ? Dictated By: Barrington Ledezma MD External Record Review External record reviewed: Inpatient record, Office record, Outpatient record, Prior outpatient labs, Prior outpatient radiology, Primary care record and Outside ED record Scores Heart Score History: -0- slightly suspicious ECG: -0- normal Age: -2- > or = 65 Risk factory: -1- 1 or 2 risk factors Troponin: -0- < or = normal limit Score: 3 Risk: 1.7% Discharge Plan Discharge Clinical Impression: Chest pain Patient Disposition: Home, Self-Care Instructions: Chest Pain (ED) Additional Instructions: Your work up today was reassuring. It is unclear what is causing you to have your symptoms therefore it is important to follow up with your primary care and forest biometrics professor as they may want to perform more tests. If any new or worsening symptoms occur, including but not limited to worsening chest pain, shortness of breath, palpitations, etc. please return for re- evaluation. Prescriptions: No Action Fasenra 30 mg/mL syringe 30 mg subcut Q8W Qty: 1 11RF albuterol sulfate [ProAir HFA] 90 mcg/actuation HFA aerosol inhaler 2 puff inhalation Q4H PRN (Reason: shortness of breath or wheezing) Qty: 17 2RF furosemide 20 mg tablet 20 mg PO DAILY@1200 Qty: 90 1RF ferrous sulfate 325 mg (65 mg iron) tablet 325 mg PO DAILY Qty: 90 1RF digoxin 125 mcg (0.125 mg) tablet 125 mcg PO DAILY 90 Days Qty: 90 3RF budesonide-formoterol [Symbicort] 160-4.5 mcg/actuation HFA aerosol inhaler 2 puff PO BID Qty: 10.2 6RF Eliquis 5 mg tablet 5 mg PO BID 90 Days Qty: 180 3RF metoprolol tartrate 50 mg tablet 50 mg PO BID Qty: 180 3RF cholecalciferol (vitamin D3) 25 mcg (1,000 unit) Tablet 25 mcg PO DAILY nystatin 100,000 unit/gram Powder 1 appl TOPICAL BID krill oil 500 mg capsule 500 mg PO DAILY Adult 50 Plus Probiotic 4 billion cell capsule 4,000 mmu cells PO DAILY Rx Instructions: administer with a meal multivitamin Tablet 1 tab PO DAILY (DME) BreatheRite MDI Spacer Spacer See Rx Instructions .ROUTE .MEDSUPPLY Qty: 1 0RF Rx Instructions: As directed triamcinolone acetonide 0.1 % cream topical BID PRN nystatin-triamcinolone 100,000-0.1 unit/g-% cream 1 appl topical BID 10 Days Qty: 30 0RF balsalazide 750 mg capsule 2,250 mg PO TID Interventions: ED Discharge Assessment Last Done: 08/20/22 13:16 Discharge Date/Time: 08/20/22 13:17
[2022-08-20 09:51] LABS: Anion Gap 12 (12-20); Blood Urea Nitrogen 14 mg/dL (9-16); Calcium 9.2 mg/dL (8.4-10.2); Carbon Dioxide 29 mmol/L (22-29); Chloride 104 mmol/L (96-108); Creatinine Clr Calc Pharmacy 89.8; Estimated Glomerular Filt Rate > 60; Glucose Random 98 mg/dL (60-115); Potassium 4.8 mmol/L (3.3-5.1); Sodium 140 mmol/L (135-145)
[2022-08-20 10:00] LABS: Troponin-I High Sensitivity < 2.7 ng/L (<3.5-35.0)
[2022-08-20 10:21] LABS: B Type Natriuretic Peptide 61 pg/mL (<100)
[2022-08-20 10:55] VITALS: BP 104/51; PULSE 74; RESP 18; O2SAT 96
--- NOTE | 2022-08-20 11:10 | PC.NURSE ---
plan for repeat troponin at 1230, vss resp even and unlabored
[2022-08-20 12:50] LABS: Troponin-I High Sensitivity < 2.7 ng/L (<3.5-35.0)
== END 2022-08-20 13:17 | disposition home or self-care (01) ==
PROVIDERS: Physician Assistant Medical; Emergency Provider Emergency Medicine Emergency Medical Services; PCP Internal Medicine
DX: R07.9 Chest pain, unspecified (principal); I48.91 Unspecified atrial fibrillation; Z79.899 Other long term (current) drug therapy; Z79.01 Long term (current) use of anticoagulants
CPT/HCPCS: 36415; 71046; 80048; 83880; 84484; 85025; 85610; 93005; 99284; 99285

== ENCOUNTER 2022-09-15 07:53 | Outpatient (REF) | payer MEDICARE, SELFPAY | END 2022-09-15 07:54 | disposition home or self-care (01) | LOC: HO.MDS 07:53 | PROVIDERS: Visit Provider Internal Medicine Pulmonary Disease | DX: J45.50 Severe persistent asthma, uncomplicated (principal) | CPT/HCPCS: 96372; J0517; J2182 ==

== ENCOUNTER 2022-10-22 10:15 | Outpatient (AMB) | payer MEDICARE, SELFPAY ==
--- NOTE | 2022-10-22 11:16 | AM.OFFWIN_ITS ---
Intake Vital Signs 10/22/22 11:19 BP 118/70 Blood Pressure Location Lt brachial Position Sitting Pulse 84 Pulse Source Pulse Oximeter Temp 98.4 F Temp Source Temporal Artery Scan Pulse Oximetry (%) 98 Oxygen Delivery Method Room Air Intake Visit Reasons: EST/right side pain Intake Note: Patient here because for the past couple of days he has been getting right sided pain, sort of hurts when breathing normal and when takes a deep breathe it really hurts, has been coughing a lot. Patient Tobacco Use Status: Never used Tobacco Allergies ceftriaxone Adverse Reaction (Mild, Verified 10/22/22 11:19) Vomiting Do you need a note to return to daycare/school/sports/work: No HPI EST/right side pain HPI Details 67-year-old male patient presents today with right-sided lower rib pain. He states this developed over the last few days. He denies any shortness of breath. He denies any fever or chills. He has had a little bit of a cough recently and is not sure if this is contributing to the pain. He has a colostomy in this has been having normal output per patient. He denies any abdominal pain, distention, nausea or vomiting. Denies any urinary symptoms. [facility] Medical History Acquired deformity of toenail Acquired hypothyroidism Anal fistula Anemia Atrial fibrillation, chronic Buttock wound Buttock wound Cholecystitis Colostomy in place Crohn disease Crohn's disease of perianal region with fistula Current use of custodial anticoagulation Decreased pulses in feet Empyema of left pleural space Erythema intertrigo Gallstones Moderate persistent allergic asthma Morbid obesity due to excess calories Non-STEMI (non-ST elevated myocardial infarction) Numbness and tingling of lower extremity FABIOLA on CPAP Persistent atrial fibrillation Vitamin D deficiency Surgical History History of appendectomy History of bowel resection History of creation of ostomy Family History Father Emphysema lung HTN (hypertension) Pulmonary fibrosis Mother HTN (hypertension) Social History Household Members: Significant Other Housing: Condominium Do you presently have visiting nurse or other home services: No Alcohol intake: former Patient Tobacco Use Status: Never used Tobacco e-Cigarette/Vaping Use: Never Used Second Hand Smoke Exposure: No Advance Directives Date on File: 06/05/21 service: No Current occupational status: retired Cognitive needs: No Hearing needs: No Vision needs: Yes Review of Systems Const All systems reviewed & are unremarkable except as noted in HPI and below Physical Exam Vital Signs: Last Vital Signs Temp 98.4 F 10/22/22 11:19 Pulse 84 10/22/22 11:19 BP 118/70 10/22/22 11:19 Pulse Ox 98 10/22/22 11:19 Oxygen Delivery Method Room Air 10/22/22 11:19 Const General: cooperative, healthy appearing, comfortable and no acute distress Nutritional Appearance: obese Chest Other: mild right sided lower rib tenderness to palpation Resp Effort & Inspection: normal respiratory effort, able to speak in complete sentences and Actively coughing Quality: dry Auscultation: clear to auscultation bilaterally Cardio Jugular venous distension: no JVD Palpation: normal PMI Rate: regular rate Rhythm: regular rhythm GI Other: soft, nontender, colostomy left side Palpation (GI): Soft to palpation and No hepatosplenomegaly present Auscultation: normal bowel sounds General: Yes no CVA tenderness Back/Spine/Pelvis Back: no CVA tenderness Skin General skin exam: no rashes or lesions noted Extrem General: Yes capillary refill normal and Yes no clubbing, cyanosis or edema Psych Appearance: grossly normal Mental Status: mental status grossly normal Speech and movement: Normal speech and movement present Assessment & Plan Assessment & Plan (1) Rib pain on right side: Code(s): R07.81 - Pleurodynia Plan: Patient having pleuritic pain on his right lateral ribs with inspiration and with coughing. Chest x-ray done in the clinic today and reviewed by this program writer does not reveal any acute findings. Will await official radiology read. His abdominal assessment is normal. 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 He has a history of a-fib and is on eliquis so cannot take NSAIDs. He is going to take Tylenol prn, and I will also start him on a short course of muscle relaxers to see if this helps. If he does not improve with time and conservative treatment, or if new symptoms develop, he should return to the clinic or PCP for further evaluation. He agrees to plan. Orders: Orders XR chest 2V Today R07.81 - Pleurodynia Coding Level of Care Code Est Pt Level 3 (68297) Diagnoses Rib pain on right side R07.81
[2022-10-22 11:19] VITALS: BP 118/70; PULSE 84; TEMP 36.9; O2SAT 98
== END 2022-10-22 12:44 | disposition home or self-care (01) ==
PROVIDERS: PCP Internal Medicine; Visit Provider Nurse Practitioner Family
DX: R07.81 Pleurodynia (principal)
CPT/HCPCS: 99213

== ENCOUNTER 2022-10-22 11:54 | Outpatient (REF) | payer MEDICARE, SELFPAY ==
--- NOTE | ~2022-10-22 | XR_ITS ---
EXAMINATION: XR CHEST CLINICAL INFORMATION: Pleurodynia. COMPARISON: 08/20/2022 chest radiographs. TECHNIQUE: 2 views of the chest were obtained. FINDINGS: No significant abnormality is noted involving the heart, lungs, mediastinum, bony thorax or soft tissues. XR/XR chest 2V IMPRESSION: No acute cardiopulmonary process.
== END 2022-10-22 11:55 | disposition home or self-care (01) ==
LOC: HO.HMGCX 11:54
PROVIDERS: PCP Internal Medicine; Visit Provider Nurse Practitioner Family
DX: R07.81 Pleurodynia (principal)
CPT/HCPCS: 71046

== ENCOUNTER 2022-11-03 07:36 | Outpatient (REF) | payer MEDICARE, SELFPAY | END 2022-11-03 07:37 | disposition home or self-care (01) | LOC: HO.MDS 07:36 | PROVIDERS: Visit Provider Internal Medicine Pulmonary Disease | DX: J45.50 Severe persistent asthma, uncomplicated (principal) | CPT/HCPCS: 96372; J0517 ==

== ENCOUNTER 2022-11-18 09:14 | Outpatient (AMB) | payer MEDICARE, SELFPAY ==
[2022-11-18 09:21] VITALS: BP 112/70; PULSE 79; O2SAT 97; BMI 43.5
--- NOTE | 2022-11-18 09:21 | A.OFFPC_ITS ---
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: No Accompanied by: Self / Same As Patient Allergies ceftriaxone Adverse Reaction (Mild, Verified 11/18/22 09:54) Vomiting Medication List - Last Reconciled 11/18/22 by Isabel Tilley MD albuterol sulfate 90 mcg/actuation (ProAir HFA) 2 puffs inhalation Q4H PRN apixaban (Eliquis) 5 mg PO BID 90 days balsalazide 2,250 mg PO TID benralizumab (Fasenra) 30 mg subcut Q8W cholecalciferol (vitamin D3) 25 mcg PO DAILY cyclobenzaprine 10 mg PO BEDTIME PRN digoxin 125 mcg PO DAILY 90 days ferrous sulfate 325 mg PO DAILY furosemide 20 mg PO DAILY@1200 inhalational spacing device (BreatheRite MDI Spacer) As directed krill oil 500 mg PO DAILY lactobacillus combination no.9 (Adult 50 Plus Probiotic) 4,000 mmu cells PO DAILY metoprolol tartrate 50 mg PO BID multivitamin 1 tab PO DAILY nystatin 1 appl topical BID nystatin-triamcinolone 100,000-0.1 unit/g-% 1 appl topical BID 10 days Symbicort 160-4.5 mcg/actuation (budesonide-formoterol) 2 puffs PO BID NS triamcinolone acetonide 0.1% appl topical BID PRN Tobacco use date assessed: 07/24/22 Fall risk assessment: No Falls in past year Last assessed Fall Risk: 11/18/22 Dental Screening Dental Screen Date: 11/18/22 Did you have a dental visit in the last 12 months?: Yes Did you have a dental problem in the last 6 months where you did not have access to dental care?: No Was dental information given to patient?: Patient has dentist HPI Cataract surgery right eye 11/24, left eye 12/08 HPI Details 67-year-old male with morbid obesity, persistent atrial fibrillation, on Eliquis, has obstructive sleep apnea on CPAP, Crohn's disease of both small and large intestine, non pressure chronic ulcer buttock followed at [facility] [place] also sees Dr. Ortega in [place] [facility], has bronchial asthma, here today for a preoperative examination for cataract surgery scheduled for 11/24 OD and 12/08/22 OS. He currently feels well, with no complaints at present time. [facility] Medical History (Updated 11/18/22 @ 10:39 by Isabel Tilley MD) Acquired deformity of toenail Anal fistula Anemia Atrial fibrillation, chronic Colostomy in place Crohn's disease of perianal region with fistula Current use of salvage determiner anticoagulation Empyema of left pleural space Erythema intertrigo Gallstones Moderate persistent allergic asthma Morbid obesity due to excess calories Non-pressure chronic ulcer of buttock Non-STEMI (non-ST elevated myocardial infarction) FABIOLA on CPAP Preoperative examination Vitamin D deficiency Surgical History History of appendectomy History of bowel resection History of creation of ostomy Family History Father Emphysema lung HTN (hypertension) Pulmonary fibrosis Mother HTN (hypertension) Social History Household Members: Significant Other Housing: Condominium Do you presently have visiting nurse or other home services: No Alcohol intake: former Patient Tobacco Use Status: Never used Tobacco e-Cigarette/Vaping Use: Never Used Second Hand Smoke Exposure: No Advance Directives Date on File: 06/05/21 service: No Current occupational status: retired Cognitive needs: No Hearing needs: No Vision needs: Yes Questionnaire Thrive Questionnaire Date Thrive assessed: 07/24/22 SELIN-7 AMB Questionnaire SELIN-7 Date SELIN - 7 assessed: 07/24/22 Source: Developed by Drs. Arron Summers, Lizabeth Shine, Bradley Cobb and colleagues, with an educational deni from [employer]. Review of Systems Const Denies fatigue, Denies fever(s), Denies headache(s), Denies lethargy, Denies malaise, Denies night sweats and Denies snoring Eyes Reports blurry vision (Has cataract bilateral) ENT Denies headache(s), Denies nasal congestion, Denies post nasal drip, Denies sinus pain and Denies sinus pressure Card Denies chest pain, Denies chest pain with activity, Denies rapid heart rate, Denies pedal edema, Denies dyspnea, Denies orthopnea and Denies paroxysmal nocturnal dyspnea Resp Details: Occasional cough in the morning after wearing CPAP Denies excessive phlegm production, Denies dyspnea, Denies snoring and Denies wheezing GI Details: Colostomy in place, with good stool output Denies abdominal pain and Denies heartburn Reports no additional complaints Musc Denies abnormal gait, Denies myalgias, Denies arthralgias and Denies joint swelling Skin/Breast Reports as per HPI Neuro Denies abnormal gait, Denies headache(s), Denies focal weakness and Denies seizure-like activity Psych Reports no additional complaints Endo Denies fatigue and Denies heat intolerance Cas/Lymph Denies easy bleeding and Reports easy bruising Aller/Immun Denies wheezing Physical exam (Primary Care) Vital Signs: Last Vital Signs Pulse 79 11/18/22 09:21 BP 112/70 11/18/22 09:21 Pulse Ox 97 11/18/22 09:21 BMI result Body Mass Index 43.5 Tobacco/Smoking Status: Tobacco use Status Tobacco use date assessed 07/24/22 11/18/22 09:22 Patient Tobacco Use Status Never used Tobacco 11/18/22 09:22 e-Cigarette/Vaping Use Never Used 11/18/22 09:22 Thrive Assessment: Date of Thrive Assessment Date Thrive assessed 07/24/22 11/18/22 09:22 Const General: cooperative, comfortable and no acute distress Nutritional Appearance: obese morbidly obese Orientation/consciousness: patient oriented x3 Limitations: no limitations HENMT Ears: TM's normal bilaterally and EAC's normal Face and sinus: Yes face symmetric Mouth: Normal oral and palatal mucosa present, oropharynx normal and moist mucous membranes Eyes General: appearance normal, both eyes and all related structures Neck Other: Supple, no lymphadenopathy, thyroid gland nonpalpable Chest Chest palpation & inspection: normal inspection of the chest and normal palpation of entire chest wall Resp Auscultation: clear to auscultation bilaterally Cardio Other: Irregularly irregular rhythm GI Other: Obese, soft, nontender, no mass palpated, colostomy and left side of abdomen draining yellow brown stool Dry crusted lesion on right buttock, with hyper pigmented patch on gluteal crease Auscultation: normal bowel sounds General: Yes no CVA tenderness Back/Spine/Pelvis Back: no CVA tenderness and No back tenderness Skin Other: Dusky red skin thickening on medial aspect of buttocks with hyper pigmented patch on lower buttocks, no active drainage seen, nontender to palpation Neuro General: patient oriented x3, gait normal, tone normal, moves all extremities, Normal light touch and pain sensation, no focal motor deficits and CN's II-XI intact bilaterally Extrem General: Yes full ROM, Yes no joint enlargement, Yes no pedal edema and Yes normal gait Psych Appearance: grossly normal Mental Status: mental status grossly normal Speech and movement: Normal speech and movement present Affect: normal affect Thought process: Normal thought process present Assessment and Plan Assessment & Plan (1) Preoperative examination: Code(s): Z01.818 - Encounter for other preprocedural examination Plan: 67 year old male with Crohn's disease, chronic atrial fibrillation on Eliquis, obstructive sleep apnea on CPAP, bronchial asthma morbid obesity, chronic non pressure ulcer in buttock, here for pre-op clearance for cataract surgery requested by Dr. Lui. Preoperative examination is unremarkable. Recent labs reviewed, with no anemia, and electrolytes, renal function glucose and lipid levels are within normal limits. Patient with a low cardiac risk for proposed surgery (2) Crohn's disease of perianal region with fistula: Code(s): K50.113 - Crohn's disease of large intestine with fistula Plan: Followed by Dr. Sorto and Dr. Lopes in [facility] (3) Environmental allergies: Code(s): Z91.09 - Other allergy status, other than to drugs and biological substances (4) FABIOLA on CPAP: Code(s): G47.33 - Obstructive sleep apnea (adult) (pediatric); Z99.89 - Dependence on other enabling machines and devices Plan: Stable on CPAP Followed by Pulmonary, (5) Morbid obesity due to excess calories: Code(s): E66.01 - Morbid (severe) obesity due to excess calories (6) Atrial fibrillation, chronic: Code(s): I48.20 - Chronic atrial fibrillation, unspecified Plan: Currently Eliquis and digoxin and metoprolol, followed by cardiology (7) Non-pressure chronic ulcer of buttock: Comment: [place] [facility] [place] [facility] and also sees Dr. Ortega in [place] [facility] Code(s): L98.419 - Non-pressure chronic ulcer of buttock with unspecified severity Plan: Currently stable and followed by both [facility] and Dr. 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
== END 2022-11-18 11:01 | disposition home or self-care (01) ==
LOC: HO.HMGC 09:14
PROVIDERS: PCP Internal Medicine; Visit Provider Internal Medicine
DX: K50.113 Crohn's disease of large intestine with fistula (principal); Z91.09 Other allergy status, other than to drugs and biological substances; I48.20 Chronic atrial fibrillation, unspecified; E66.01 Morbid (severe) obesity due to excess calories; L98.419 Non-pressure chronic ulcer of buttock with unspecified severity; Z79.01 Long term (current) use of anticoagulants; Z68.41 Body mass index [BMI] 40.0-44.9, adult; Z01.818 Encounter for other preprocedural examination; G47.33 Obstructive sleep apnea (adult) (pediatric); Z99.89 Dependence on other enabling machines and devices
CPT/HCPCS: 99214

== ENCOUNTER 2022-11-24 08:05 | Day surgery (SDC) | payer MEDICARE, SELFPAY ==
[2022-11-19 15:34] VITALS: BMI 43.5
--- NOTE | 2022-11-21 08:24 | MHC.SHP ---
Pre-Procedural Eval Section A Date of Service: 11/21/22 The patient is an INPATIENT: No Changes since office visit: No Cold of Flu in the past 2 weeks, No New Medical Problems, No Changes in Medication and No Patient answered all questions The History & Physical has been completed within 30 days and I have reviewed it.: Yes Section B Chief Complaint: Age-related nuclear cataract, right eye Allergies: Allergies Allergy/AdvReac Type Severity Reaction Status Date / Time ceftriaxone AdvReac Mild Vomiting Verified 11/18/22 09:54 Plan Diagnosis/Plan: Unchanged I have reviewed the history and physical and performed a pertinent physical examination on my patient. No changes have occurred unless specified. Time Spent With Patient Time: Total time managing care of this patient today ____ minutes.
--- NOTE | 2022-11-21 09:28 | P.CONAN_ITS ---
Documented by User: Vidya Donato NP 11/21/22 09:29 HPI - Anesthesia Eval Consult details Narrative: 67yo M for Right Cataract Extraction IOL Insertion Medically optimized No previous cataract on record Eliquis for afib PMFSH Active Problems Active Problems: All Active Problems (Updated 11/19/22 @ 15:37 by Mitra Harvey, RN) Current use of anticoagulant therapy (Acute) Environmental allergies (Acute) Non-pressure chronic ulcer of buttock (Acute) Preoperative examination (Acute) Atrial fibrillation, chronic (Acute) Colostomy in place (Acute) Moderate persistent allergic asthma (Acute) Crohn's disease of perianal region with fistula (Acute) Morbid obesity due to excess calories (Acute) FABIOLA on CPAP (Acute) Anal fistula (Acute) Past Medical History Medical History (Updated 11/19/22 @ 15:37 by Mitra Harvey, RN) Acquired deformity of toenail Anal fistula Anemia Atrial fibrillation, chronic Cataract Colostomy in place Crohn's disease of perianal region with fistula Current use of fpc anticoagulation Empyema of left pleural space Erythema intertrigo Gallstones Moderate persistent allergic asthma Morbid obesity due to excess calories Non-pressure chronic ulcer of buttock Non-STEMI (non-ST elevated myocardial infarction) FABIOLA on CPAP Preoperative examination Vitamin D deficiency Family History Family History Father Emphysema lung HTN (hypertension) Pulmonary fibrosis Mother HTN (hypertension) Surgical History Surgical History History of appendectomy History of bowel resection History of creation of ostomy Social History Social History (Updated 11/19/22 @ 15:42 by Mitra Harvey, ALYCE) Household Members: Significant Other Housing: Condominium Are you a primary child care worker to a significant other at home: No Do you presently have visiting nurse or other home services: No Alcohol intake: former Patient Tobacco Use Status: Never used Tobacco e-Cigarette/Vaping Use: Never Used Second Hand Smoke Exposure: No Use of substances other than those prescribed or required for medical reasons: No Have you been hit, kicked, punched, or otherwise hurt by someone within the past year? If so, by whom?: No Are you DNR?: No Advance Directives: Yes Advance Directives Information Provided: No Advance Directives on File: Yes Advance Directives Date on File: 06/05/21 Recently lost weight without trying: No Nutrition Risks: No Nutritional Risk Poor oral hygiene: No service: No Current occupational status: retired Cognitive needs: No Hearing needs: No Vision needs: Yes Meds Allergies Allergy/AdvReac Type Severity Reaction Status Date / Time ceftriaxone AdvReac Mild Vomiting Verified 11/18/22 09:54 Home Medications Medication Instructions Recorded Confirmed Last Taken Type balsalazide 750 mg capsule 2,250 mg PO TID 03/02/20 11/19/22 11/16/21 History krill oil 500 mg capsule 500 mg PO DAILY 09/11/20 11/19/22 11/16/21 History lactobacillus combination no.9 4 4,000 mmu cells PO DAILY 09/11/20 11/19/22 11/16/21 History billion cell capsule (Adult 50 Plus Probiotic) multivitamin 1 tab PO DAILY 09/11/20 11/19/22 11/16/21 History cholecalciferol (vitamin D3) 25 25 mcg PO DAILY 06/05/21 11/19/22 11/16/21 History mcg (1,000 unit) tablet nystatin 100,000 unit/gram topical 1 appl topical BID 11/16/21 04/09/22 Unknown History powder triamcinolone acetonide 0.1 % appl topical BID PRN Rash 07/24/22 Unknown History topical cream melatonin 10 mg tablet 10 mg PO BEDTIME PRN Insomnia 11/19/22 11/19/22 Unknown History Exam Exam Date and Time: November 21, 2022 0928 Height,Weight and Vital Signs: Height 5 ft 8 in Weight 129.727 kg Assessment and Plan Assessment Anesthesia Assessment: Chart Reviewed Documented by User: Milad Walsh MD 11/24/22 15:49 [facility] Past Medical History Medical History (Updated 11/19/22 @ 15:37 by Mitra Harvey RN) Acquired deformity of toenail Anal fistula Anemia Atrial fibrillation, chronic Cataract Colostomy in place Crohn's disease of perianal region with fistula Current use of fpc anticoagulation Empyema of left pleural space Erythema intertrigo Gallstones Moderate persistent allergic asthma Morbid obesity due to excess calories Non-pressure chronic ulcer of buttock Non-STEMI (non-ST elevated myocardial infarction) FABIOLA on CPAP Preoperative examination Vitamin D deficiency Family History Family History Father Emphysema lung HTN (hypertension) Pulmonary fibrosis Mother HTN (hypertension) Family history of problems with anesthesia: No Surgical History Surgical History History of appendectomy History of bowel resection History of creation of ostomy History of Problems with Anesthesia: No Social History Social History (Updated 11/19/22 @ 15:42 by Mitra Harvey RN) Household Members: Significant Other Housing: [facility] Are you a primary child care worker to a significant other at home: No Do you presently have visiting nurse or other home services: No Alcohol intake: former Patient Tobacco Use Status: Never used Tobacco e-Cigarette/Vaping Use: Never Used Second Hand Smoke Exposure: No Use of substances other than those prescribed or required for medical reasons: No Have you been hit, kicked, punched, or otherwise hurt by someone within the past year? If so, by whom?: No Are you DNR?: No Advance Directives: Yes Advance Directives Information Provided: No Advance Directives on File: Yes Advance Directives Date on File: 06/05/21 Recently lost weight without trying: No Nutrition Risks: No Nutritional Risk Poor oral hygiene: No service: No Current occupational status: retired Cognitive needs: No Hearing needs: No Vision needs: Yes Meds Allergies Allergy/AdvReac Type Severity Reaction Status Date / Time ceftriaxone AdvReac Mild Vomiting Verified 11/18/22 09:54 Home Medications Medication Instructions Recorded Confirmed Last Taken Type balsalazide 750 mg capsule 2,250 mg PO TID 03/02/20 11/19/22 11/16/21 History krill oil 500 mg capsule 500 mg PO DAILY 09/11/20 11/19/22 11/16/21 History lactobacillus combination no.9 4 4,000 mmu cells PO DAILY 09/11/20 11/19/22 11/16/21 History billion cell capsule (Adult 50 Plus Probiotic) multivitamin 1 tab PO DAILY 09/11/20 11/19/22 11/16/21 History cholecalciferol (vitamin D3) 25 25 mcg PO DAILY 06/05/21 11/19/22 11/16/21 History mcg (1,000 unit) tablet nystatin 100,000 unit/gram topical 1 appl topical BID 11/16/21 04/09/22 Unknown History powder triamcinolone acetonide 0.1 % appl topical BID PRN Rash 07/24/22 Unknown History topical cream melatonin 10 mg tablet 10 mg PO BEDTIME PRN Insomnia 11/19/22 11/19/22 Unknown History Exam Airway Mallampati Class: III Loose/Missing/Broken Teeth: Yes Assessment and Plan Assessment Anesthesia Assessment: Anesthesia Plan Discussed Final Anesthetic Review Family History of Problems with Anesthesia: No History of Problems with Anesthesia: No NPO: Yes ASA Class: III Final Preanesthetic Review: Meds/Allgs Chart Reviewed, Consent Obtained/Reviewed and Anes Risks/Benef Reviewed Patient Risk: Intermediate Procedure Risk: Intermediate Anesthetic Plan Anesthetic Plan: MAC: and Agree w/ Assess. and Plan Disposition: Standard PACU
[2022-11-24] MEDS: Lactated Ringers 500 ML 50 ML IV (09:06)
[2022-11-24] MEDS: Tetracaine HCl/PF 0.5% Oph Sol 4 ML DROPS 1 DROP EYE-RIGHT (09:06)
[2022-11-24 09:07] VITALS: BP 113/76; PULSE 74; RESP 16; TEMP 36.6; O2SAT 95
[2022-11-24] MEDS: Cyclopentolate 1 % Ophth Sol 2 ML DRPBTL 1 DROP EYE-RIGHT ×3 (09:09→09:15)
[2022-11-24] MEDS: Tropicamide 1 % Ophth Sol 3 ML BTL 1 DROP EYE-RIGHT ×3 (09:09→09:16)
[2022-11-24] MEDS: Ketorolac Tromethamine 0.5% Op 5 ML DROPS 1 DROP EYE-RIGHT ×3 (09:09→09:16)
[2022-11-24] MEDS: Phenylephrine HCL 2.5% Oph SoL 2 ML BOTTLE 1 DROP EYE-RIGHT ×3 (09:10→09:17)
[2022-11-24 10:36] VITALS: BP 148/87; PULSE 79; RESP 20; TEMP 36.1; O2SAT 100
--- NOTE | 2022-11-24 10:37 | HO.PNOPHT ---
Ophthalmology Procedure Procedure Date of Service: 11/24/22 Ophthalmology Viscoelastic: Marcie Florest Dual Pack Pro Ophthalmology Lenses: TECBRETT [id number] (14) Procedure Notes: PREOPERATIVE DIAGNOSIS: Decreased visual acuity right eye secondary to cataract POSTOPERATIVE DIAGNOSIS: Same PROCEDURE: Right cataract extraction with intraocular lens insertion SURGEON: Ta Lui M.D. ANESTHESIA: Topical/MAC ESTIMATED BLOOD LOSS: None COMPLICATIONS: None After obtaining informed consent, the patient was brought to the operating room suite and placed in the supine position. After adequate sedation per anesthesia, topical drops of Tetracaine were given to the right eye. The eye was then prepped and draped in the usual sterile fashion. The operating room microscope was then positioned over the operative eye and a lid speculum placed. A paracentesis was created. Viscoelastic was then instilled into the anterior chamber. A three plane incision was then created temporally, utilizing a 2.85 mm keratome. Capsulotomy forceps were then utilized to create a circular tear capsulotomy. Hydrodissection and hydrodelineation were carried out until adequate mobilization of the nucleus occurred. Phacoemulsification was then utilized to remove the dense central nucleus followed by removal of the cortical material utilizing the automated aspiration irrigation unit. Viscoelastic was instilled into the posterior capsular bag followed by placement of a posterior chamber intraocular lens without difficulty. The residual Viscoelastic was then removed utilizing the automated IA machine. The wound was checked and found to be watertight. The patient tolerated the procedure well and the lid speculum was removed. Intracameral injection of Vigamox 0.1 mL followed by a subtenon injection of Kenalog-40 0.2 mL were administered. The patient will be seen in the a.m.
== END 2022-11-24 10:55 | disposition home or self-care (01) ==
PROVIDERS: PCP Internal Medicine; Visit Provider Ophthalmology
PROC: (CPT 66985; principal; 2022-11-24 10:50)
DX: H25.11 Age-related nuclear cataract, right eye (principal); H52.4 Presbyopia; H18.413 Arcus senilis, bilateral; H52.13 Myopia, bilateral; H43.399 Other vitreous opacities, unspecified eye; I48.19 Other persistent atrial fibrillation; I25.2 Old myocardial infarction; G47.33 Obstructive sleep apnea (adult) (pediatric); Z99.89 Dependence on other enabling machines and devices; J45.40 Moderate persistent asthma, uncomplicated; K50.80 Crohn's disease of both small and large intestine without complications; E66.01 Morbid (severe) obesity due to excess calories; Z68.41 Body mass index [BMI] 40.0-44.9, adult; L98.419 Non-pressure chronic ulcer of buttock with unspecified severity; Z93.3 Colostomy status; Z79.899 Other long term (current) drug therapy; Z79.01 Long term (current) use of anticoagulants; Z79.51 Long term (current) use of inhaled steroids; Z88.8 Allergy status to other drugs, medicaments and biological substances
CPT/HCPCS: 66984; J3010; J3301; V2632

== ENCOUNTER 2022-12-08 08:17 | Day surgery (SDC) | payer MEDICARE, SELFPAY ==
[2022-11-19 15:37] VITALS: BMI 43.5
--- NOTE | 2022-12-05 07:58 | MHC.SHP ---
Pre-Procedural Eval Section A Date of Service: 12/05/22 The patient is an INPATIENT: No Changes since office visit: No Cold of Flu in the past 2 weeks, No New Medical Problems, No Changes in Medication and No Patient answered all questions The History & Physical has been completed within 30 days and I have reviewed it.: Yes Section B Chief Complaint: Age-related nuclear cataract, left eye Allergies: Allergies Allergy/AdvReac Type Severity Reaction Status Date / Time ceftriaxone AdvReac Mild Vomiting Verified 11/18/22 09:54 Plan Diagnosis/Plan: Unchanged I have reviewed the history and physical and performed a pertinent physical examination on my patient. No changes have occurred unless specified. Time Spent With Patient Time: Total time managing care of this patient today ____ minutes.
--- NOTE | 2022-12-05 12:52 | P.CONAN_ITS ---
Documented by User: Vidya Donato NP 12/05/22 12:54 HPI - Anesthesia Eval Consult details Narrative: 67yo M for Left Cataract Extraction IOL Insertion PCP cleared Right eye done 11/24/22 with TIVA: Fent 50 Eliquis for afib PMFSH Active Problems Active Problems: All Active Problems (Updated 11/19/22 @ 15:37 by Mitra Harvey RN) Environmental allergies (Acute) Current use of anticoagulant therapy (Acute) Non-pressure chronic ulcer of buttock (Acute) Preoperative examination (Acute) Atrial fibrillation, chronic (Acute) Colostomy in place (Acute) Moderate persistent allergic asthma (Acute) Crohn's disease of perianal region with fistula (Acute) Morbid obesity due to excess calories (Acute) FABIOLA on CPAP (Acute) Anal fistula (Acute) Past Medical History Medical History Cataract Non-pressure chronic ulcer of buttock Preoperative examination Erythema intertrigo Moderate persistent allergic asthma Crohn's disease of perianal region with fistula Morbid obesity due to excess calories Gallstones Non-STEMI (non-ST elevated myocardial infarction) Atrial fibrillation, chronic FABIOLA on CPAP Vitamin D deficiency Anemia Acquired deformity of toenail Colostomy in place Empyema of left pleural space 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 Anal fistula Family History Family History Father Emphysema lung HTN (hypertension) Pulmonary fibrosis Mother HTN (hypertension) Family history of problems with anesthesia: No Surgical History Surgical History History of bowel resection History of appendectomy History of creation of ostomy History of Problems with Anesthesia: No Social History Social History Household Members: Significant Other Housing: Condominium Are you a primary geriatric personal care aide to a significant other at home: No Do you presently have visiting nurse or other home services: No Alcohol intake: former Patient Tobacco Use Status: Never used Tobacco e-Cigarette/Vaping Use: Never Used Second Hand Smoke Exposure: No Use of substances other than those prescribed or required for medical reasons: No Have you been hit, kicked, punched, or otherwise hurt by someone within the past year? If so, by whom?: No Are you DNR?: No Advance Directives: Yes Advance Directives Information Provided: No Advance Directives on File: Yes Advance Directives Date on File: 06/05/21 Recently lost weight without trying: No Nutrition Risks: No Nutritional Risk Poor oral hygiene: No service: No Current occupational status: retired Cognitive needs: No Hearing needs: No Vision needs: Yes Meds Allergies Allergy/AdvReac Type Severity Reaction Status Date / Time ceftriaxone AdvReac Mild Vomiting Verified 11/18/22 09:54 Home Medications Medication Instructions Recorded Confirmed Last Taken Type balsalazide 750 mg capsule 2,250 mg PO TID 03/02/20 12/08/22 12/08/22 History krill oil 500 mg capsule 500 mg PO DAILY 09/11/20 12/08/22 11/16/21 History lactobacillus combination no.9 4 4,000 mmu cells PO DAILY 09/11/20 12/08/22 11/16/21 History billion cell capsule (Adult 50 Plus Probiotic) multivitamin 1 tab PO DAILY 09/11/20 12/08/22 11/16/21 History cholecalciferol (vitamin D3) 25 25 mcg PO DAILY 06/05/21 12/08/22 11/16/21 History mcg (1,000 unit) tablet nystatin 100,000 unit/gram topical 1 appl topical BID 11/16/21 12/08/22 Unknown History powder triamcinolone acetonide 0.1 % appl topical BID PRN Rash 07/24/22 Unknown History topical cream melatonin 10 mg tablet 10 mg PO BEDTIME PRN Insomnia 11/19/22 12/08/22 Unknown History Exam Exam Date and Time: December 05, 2022 1252 Height,Weight and Vital Signs: Height 5 ft 8 in Weight 129.727 kg Assessment and Plan Assessment Anesthesia Assessment: Chart Reviewed Final Anesthetic Review Family History of Problems with Anesthesia: No History of Problems with Anesthesia: No Documented by User: Cassie Mensah MD 12/08/22 11:05 PMFSH Active Problems Active Problems: All Active Problems (Updated 12/08/22 @ 10:42 by Cassie Mensah MD) Environmental allergies (Acute) Current use of anticoagulant therapy (Acute) Non-pressure chronic ulcer of buttock (Acute) Preoperative examination (Acute) Atrial fibrillation, chronic (Acute) Colostomy in place (Acute) Moderate persistent allergic asthma (Acute) Crohn's disease of perianal region with fistula (Acute) Morbid obesity due to excess calories (Acute) FABIOLA on CPAP (Acute). 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 Are you a primary geriatric personal care aide to a significant other at home: No Do you presently have visiting nurse or other home services: No Alcohol intake: former Patient Tobacco Use Status: Never used Tobacco e-Cigarette/Vaping Use: Never Used Second Hand Smoke Exposure: No Use of substances other than those prescribed or required for medical reasons: No Have you been hit, kicked, punched, or otherwise hurt by someone within the past year? If so, by whom?: No Are you DNR?: No Advance Directives: Yes Advance Directives Information Provided: No Advance Directives on File: Yes Advance Directives Date on File: 06/05/21 Recently lost weight without trying: No Nutrition Risks: No Nutritional Risk Poor oral hygiene: No service: No Current occupational status: retired Cognitive needs: No Hearing needs: No Vision needs: Yes Meds Allergies Allergy/AdvReac Type Severity Reaction Status Date / Time ceftriaxone AdvReac Mild Vomiting Verified 11/18/22 09:54 Home Medications Medication Instructions Recorded Confirmed Last Taken Type balsalazide 750 mg capsule 2,250 mg PO TID 03/02/20 12/08/22 12/08/22 History krill oil 500 mg capsule 500 mg PO DAILY 09/11/20 12/08/22 11/16/21 History lactobacillus combination no.9 4 4,000 mmu cells PO DAILY 09/11/20 12/08/22 11/16/21 History billion cell capsule (Adult 50 Plus Probiotic) multivitamin 1 tab PO DAILY 09/11/20 12/08/22 11/16/21 History cholecalciferol (vitamin D3) 25 25 mcg PO DAILY 06/05/21 12/08/22 11/16/21 History mcg (1,000 unit) tablet nystatin 100,000 unit/gram topical 1 appl topical BID 11/16/21 12/08/22 Unknown History powder triamcinolone acetonide 0.1 % appl topical BID PRN Rash 07/24/22 Unknown History topical cream melatonin 10 mg tablet 10 mg PO BEDTIME PRN Insomnia 11/19/22 12/08/22 Unknown History Exam Height,Weight and Vital Signs: Height 5 ft 8 in Weight 129.727 kg Vital Signs Temp Pulse Resp BP Pulse Ox O2 Del Method 12/08/22 10:50 97 F 76 18 113/67 97 Room Air Airway Mallampati Class: III TM Dist: >3cm Neck ROM: Full Loose/Missing/Broken Teeth: Yes (Broken and missing teeth. Denies loose teeth) Heart: Irregularly irregular Lungs: CTAB Assessment and Plan Assessment Anesthesia Assessment: Anesthesia Plan Discussed Final Anesthetic Review NPO: Yes ASA Class: III Final Preanesthetic Review: No Changes in Pt Med Stat, Meds/Allgs Chart Reviewed, Consent Obtained/Reviewed and Anes Risks/Benef Reviewed Patient Risk: Intermediate Procedure Risk: Low Assessment/Block/Sedation in SS: Assess/Block/Sedation-SS Anesthetic Plan Anesthetic Plan: MAC: Disposition: Standard PACU
[2022-12-08 10:50] VITALS: BP 113/67; PULSE 76; RESP 18; TEMP 36.1; O2SAT 97; BMI 43.3
[2022-12-08] MEDS: Tetracaine HCl/PF 0.5% Oph Sol 4 ML DROPS 1 DROP EYE-LEFT (10:55)
[2022-12-08] MEDS: Cyclopentolate 1 % Ophth Sol 2 ML DRPBTL 1 DROP EYE-LEFT ×3 (10:56→11:02)
[2022-12-08] MEDS: Ketorolac Tromethamine 0.5% Op 5 ML DROPS 1 DROP EYE-LEFT ×3 (10:56→11:02)
[2022-12-08] MEDS: Tropicamide 1 % Ophth Sol 3 ML BTL 1 DROP EYE-LEFT ×3 (10:56→11:02)
[2022-12-08] MEDS: Phenylephrine HCL 2.5% Oph SoL 2 ML BOTTLE 1 DROP EYE-LEFT ×3 (10:56→11:01)
[2022-12-08] MEDS: Lactated Ringers 500 ML 50 ML IV (11:13)
--- NOTE | 2022-12-08 11:27 | HO.PNOPHT ---
Ophthalmology Procedure Procedure Date of Service: 12/08/22 Ophthalmology Viscoelastic: Marcie Florest Dual Pack Pro Ophthalmology Lenses: [id number] [id number] (14) Procedure Notes: PREOPERATIVE DIAGNOSIS: Decreased visual acuity left eye secondary to cataract POSTOPERATIVE DIAGNOSIS: Same PROCEDURE: Left cataract extraction with intraocular lens insertion SURGEON: Ta Lui M.D. ANESTHESIA: Topical/MAC ESTIMATED BLOOD LOSS: None COMPLICATIONS: None After obtaining informed consent, the patient was brought to the operation room suite and placed in the supine position. After adequate sedation per anesthesia, topical drops of Tetracaine were given to the left eye. The eye was then prepped and draped in the usual sterile fashion. The operating room microscope was then positioned over the operative eye and a lid speculum placed. A paracentesis was created. Viscoelastic was then instilled into the anterior chamber. A three plane incision was then created temporally, utilizing a 2.85 mm keratome. Capsulotomy forceps were then utilized to create a circular tear capsulotomy. Hydrodissection and hydrodelineation were carried out until adequate mobilization of the nucleus occurred. Phacoemulsification was then utilized to remove the dense central nucleus followed by removal of the cortical material utilizing the automated aspiration irrigation unit. Viscoat elastic was instilled into the posterior capsular bag followed by placement of a posterior chamber intraocular lens without difficulty. The residual Viscoat elastic was then removed utilizing the automated IA machine. The wound was check and found to be watertight. The patient tolerated the procedure well and the lid speculum was removed. Intracameral injection of Vigamox 0.1 mL followed by a subtenon injection of Kenalog-40 0.2 mL were administered. The patient will be seen in the a.m.
[2022-12-08 11:57] VITALS: BP 132/65; PULSE 77; RESP 16; TEMP 36.9; O2SAT 100
== END 2022-12-08 12:10 | disposition home or self-care (01) ==
PROVIDERS: PCP Internal Medicine; Visit Provider Ophthalmology
PROC: (CPT 66985; principal; 2022-12-08 12:10)
DX: H25.12 Age-related nuclear cataract, left eye (principal); H52.4 Presbyopia; H18.413 Arcus senilis, bilateral; H52.13 Myopia, bilateral; H43.399 Other vitreous opacities, unspecified eye; J45.909 Unspecified asthma, uncomplicated; I48.20 Chronic atrial fibrillation, unspecified; G47.33 Obstructive sleep apnea (adult) (pediatric); K50.10 Crohn's disease of large intestine without complications; Z79.51 Long term (current) use of inhaled steroids; Z79.01 Long term (current) use of anticoagulants; Z79.899 Other long term (current) drug therapy
CPT/HCPCS: 66984; J2250; J3010; J3301; V2632

== ENCOUNTER 2022-12-24 09:09 | Outpatient (AMB) | payer MEDICARE, SELFPAY ==
--- NOTE | 2022-12-24 09:11 | MHC.OFFVIS ---
Intake Vital Signs 12/24/22 09:12 Height 5 ft 8 in Weight 283 lb 4.704 oz BMI 43.1 BP 108/67 Blood Pressure Location Rt brachial Position Sitting Pulse 73 Pulse Source Doppler Pulse Oximetry (%) 96 Oxygen Delivery Method Room Air Intake Visit Reasons: asthma Allergies ceftriaxone Adverse Reaction (Mild, Verified 12/24/22 09:16) Vomiting HPI asthma HPI Details 67-year-old gentleman, lifetime nonsmoker, with underlying history of AFib previously on amiodarone, followed for underlying severe persistent allergic asthma, environmental allergies, and FABIOLA on CPAP. ?He continues on Fasenra Symbicort, and albuterol MDI with good control of his symptoms. Patient has not been using his CPAP for the last months secondary to recent cataract surgery and since his CPAP mask straps put pressure around his eyes. He will restart using it in approximately 1 week. 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 Anal fistula Surgical History History of bowel resection History of appendectomy History of creation of ostomy Family History Father Emphysema lung HTN (hypertension) Pulmonary fibrosis Mother HTN (hypertension) Social History Household Members: Significant Other Housing: Condominium Are you a primary care transitions manager to a significant other at home: No Do you presently have visiting nurse or other home services: No Alcohol intake: former Patient Tobacco Use Status: Never used Tobacco e-Cigarette/Vaping Use: Never Used Second Hand Smoke Exposure: No Advance Directives Date on File: 06/05/21 service: No Current occupational status: retired Cognitive needs: No Hearing needs: No Vision needs: Yes Review of Systems Const Denies daytime sleepiness, Denies excessive sweating, Denies fatigue, Denies fever(s), Denies lethargy, Denies malaise, Denies night sweats, Denies snoring and Denies weight loss Eyes Denies blurry vision and Denies itchy eyes ENT Denies nasal congestion, Denies post nasal drip, Denies sinus pain, Denies sinus pressure and Denies other ( Thrush) Card Denies chest pain, Denies pedal edema, Denies dyspnea, Denies orthopnea and Denies paroxysmal nocturnal dyspnea Resp Denies cough, Denies hemoptysis, Denies excessive phlegm production, Denies dyspnea, Denies snoring and Denies wheezing GI Denies abdominal pain and Denies heartburn Musc Denies myalgias, Denies arthralgias and Denies joint swelling Skin/Breast Denies rash Neuro Denies memory loss and Denies seizure-like activity Psych Denies abnormal sleep pattern, Denies anxiety and Denies memory loss Endo Denies excessive sweating, Denies fatigue and Denies heat intolerance Cas/Lymph Denies easy bruising Aller/Immun Denies itchy eyes, Denies seasonal rhinorrhea and Denies wheezing Physical Exam Vital Signs: Last Vital Signs Pulse 73 12/24/22 09:12 BP 108/67 12/24/22 09:12 Pulse Ox 96 12/24/22 09:12 Oxygen Delivery Method Room Air 12/24/22 09:12 BMI result Body Mass Index 43.1 Const General: no acute distress and alert Nutritional Appearance: obese Orientation/consciousness: Other orientation findings ( oriented) HEENT Head: Yes atraumatic Eyes General: appearance normal, both eyes and all related structures Sclerae: sclerae normal EOM: EOMs intact bilaterally Neck Neck: Yes supple Lymphatic: no lymphadenopathy noted Resp Effort & Inspection: normal respiratory effort and no use of accessory muscles Auscultation: clear to auscultation bilaterally Cardio Rate: regular rate Rhythm: regular rhythm Heart sounds: no gallops, no murmurs and no rubs Skin General skin exam: other ( warm) Extrem General: No clubbing, No cyanosis and No edema Assessment & Plan Assessment & Plan (1) Moderate persistent allergic asthma: Code(s): J45.40 - Moderate persistent asthma, uncomplicated Plan: Excellent control on Fasenra, Symbicort, and albuterol MDI. Continue current regimen. (2) Environmental allergies: Code(s): Z91.09 - Other allergy status, other than to drugs and biological substances Plan: Well controlled on Fasenra. Continue current regimen. (3) FABIOLA on CPAP: Code(s): G47.33 - Obstructive sleep apnea (adult) (pediatric); Z99.89 - Dependence on other enabling machines and devices Plan: Has not use it over the last month secondary to eye surgery. Will restart using in approximately 1 week. Coding Level of Care Code Est Pt Level 4 (19015) Diagnoses Moderate persistent allergic asthma J45.40 Environmental allergies Z91.09 FABIOLA on CPAP G47.33; Z99.89
[2022-12-24 09:12] VITALS: BP 108/67; PULSE 73; O2SAT 96; BMI 43.1
== END 2022-12-24 09:37 | disposition home or self-care (01) ==
PROVIDERS: PCP Internal Medicine; Visit Provider Internal Medicine Pulmonary Disease
DX: J45.40 Moderate persistent asthma, uncomplicated (principal); Z91.09 Other allergy status, other than to drugs and biological substances; G47.33 Obstructive sleep apnea (adult) (pediatric); Z99.89 Dependence on other enabling machines and devices
CPT/HCPCS: 99214

== ENCOUNTER → 2022-12-24 09:09 | Outpatient (BNVA) | payer MEDICARE, SELFPAY | PROVIDERS: PCP Internal Medicine; Visit Provider Internal Medicine Pulmonary Disease | DX: J45.50 Severe persistent asthma, uncomplicated (principal); I48.91 Unspecified atrial fibrillation; G47.33 Obstructive sleep apnea (adult) (pediatric); Z91.09 Other allergy status, other than to drugs and biological substances; Z99.89 Dependence on other enabling machines and devices | CPT/HCPCS: 99212 ==

== ENCOUNTER 2022-12-29 07:43 | Outpatient (REF) | payer MEDICARE, SELFPAY | END 2022-12-29 07:44 | disposition home or self-care (01) | LOC: HO.MDS 07:43 | PROVIDERS: Visit Provider Internal Medicine Pulmonary Disease | DX: J45.50 Severe persistent asthma, uncomplicated (principal) | CPT/HCPCS: 96372; J0517 ==

== ENCOUNTER 2023-01-23 08:15 | Outpatient (AMB) | payer MEDICARE, SELFPAY ==
--- NOTE | 2023-01-23 08:24 | A.OFFVIS_ITS ---
Intake Vital Signs 01/23/23 08:25 Height 5 ft 8 in Weight 284 lb 8 oz BMI 43.3 BP 122/78 Blood Pressure Location Rt brachial Position Sitting Pulse 84 Pulse Source Pulse Oximeter Pulse Oximetry (%) 97 Oxygen Delivery Method Room Air Intake Visit Reasons: AWV G0438 02/27/23/anemia Intake Note: pt is here for his AWV Allergies ceftriaxone Adverse Reaction (Mild, Verified 01/23/23 09:15) Vomiting Medication List - Last Reconciled 01/23/23 by Isabel Tilley MD albuterol sulfate 90 mcg/actuation (Ventolin HFA) 2 puffs inhalation Q4H PRN apixaban (Eliquis) 5 mg PO BID 90 days balsalazide 2,250 mg PO TID benralizumab (Fasenra) 30 mg subcut Q8W cholecalciferol (vitamin D3) 25 mcg PO DAILY digoxin 125 mcg PO DAILY 90 days ferrous sulfate 325 mg PO DAILY furosemide 20 mg PO DAILY@1200 inhalational spacing device (BreatheRite MDI Spacer) As directed krill oil 500 mg PO DAILY lactobacillus combination no.9 (Adult 50 Plus Probiotic) 4,000 mmu cells PO DAILY melatonin 10 mg PO BEDTIME PRN metoprolol tartrate 50 mg PO BID multivitamin 1 tab PO DAILY nystatin 1 appl topical BID nystatin-triamcinolone 100,000-0.1 unit/g-% 1 appl topical BID 10 days Symbicort 160-4.5 mcg/actuation (budesonide-formoterol) 2 puffs PO BID NS triamcinolone acetonide 0.1% appl topical BID PRN HPI AWV G0438 02/27/23/anemia HPI Details AWV ?67 year old male, presents forhis Annual Wellness Visit, initial visit.? He is up-to-date with his cholesterol and fasting blood sugar screening, done 07/24/2022 and 08/20/2022 respectively. Due for his screening colonoscopy done 09/15/[address] Sorto, up-to-date with his prostate cancer screening done 07/13/2021 which came back normal result. He is up-to-date with his flu shot and pneumococcal vaccination, as well as Tdap and Shingrix vaccine, reminded to get his COVID booster. ? Medical / Social History Reviewed? Past Medical History ?Yes . ? [place] of Care / Care Team list updated ?Yes . ? Surgical/Hospitalization History ?Yes . ? Current Medications (including OTC and supplements) ?Yes . ? Family History ?Yes . ? Tobacco Control form ?Yes . ? AUDIT-C (Alcohol use) form ?Yes . ? Illicit drug use in Social History ?Yes . ? Current diagnosis of depression? ?No ? Appropriate PHQ2/PHQ9 completed ?Yes . ? Data entered by ?Risk Control Representative and reviewed by provider ? Fall Risk ? Fall History? Have you had any falls with injury in the past year? ?No . ? Have you had two or more falls in the past year? ?No . ? Fall Risk Assessment: ?No falls in the past year . ? HRA filled out by the patient, reviewed by Provider and scanned. ? IPPE/AWV ? Balance? [place] ?Yes . ? Tandem walk ?Yes . ? Walk and Turn ?Yes . ? Rise from sit to stand ?Yes . ?Vision? Corrective lens ?Yes ? Vision screen ? Up-to-date,sees Dr Lui ?Hearing? Whisper test ?pass . ?Written Plan?Completed. See Patient Documents.? 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 of left pleural space Current use of care home anticoagulation Anal fistula Surgical History History of bowel resection History of appendectomy History of creation of ostomy Family History Father Emphysema lung HTN (hypertension) Pulmonary fibrosis Mother HTN (hypertension) Social History Household Members: Significant Other Housing: Condominium Are you a primary adult care provider to a significant other at home: No Do you presently have visiting nurse or other home services: No Alcohol intake: former Patient Tobacco Use Status: Never used Tobacco e-Cigarette/Vaping Use: Never Used Second Hand Smoke Exposure: No Advance Directives Date on File: 06/05/21 service: No Current occupational status: retired Cognitive needs: No Hearing needs: No Vision needs: Yes Questionnaire Medicare Wellness Checkup [age] What gender do you identify with?: male During the past 4 weeks, how much have you been bothered by emotional problems such as feeling anxious, depressed, irritable, sad or downhearted, and blue?: not at all During the past 4 weeks, has your physical & emotional health limited your social activities with family, friends, neighbors, or groups?: not at all During the past 4 weeks, how much bodily pain have you generally had?: no pain During the past 4 weeks, was someone available to help you if you needed & wanted help?: no, not at all During the past 4 weeks, what was the hardest physical activity you could do for at least 2 minutes?: light Can you get to places out of walking distance without help? (For eg., can you travel alone on buses, taxis or drive your car?): Yes Can you go shopping for groceries or clothes without someone's help?: Yes Can you prepare your own meals?: Yes Can you do your housework without help?: Yes Because of any health problems, do you need the help of another person with your personal care needs such as eating, bathing, dressing or getting around the house?: No Can you handle your own money without help?: Yes During the past 4 weeks, how would you rate your health in general?: good During the past 4 weeks how have things been going for you?: pretty well Are you having difficulties driving your car?: no Do you always fasten your seat belt when you are in a car?: yes, usually During past 4 weeks, have you been bothered by the following: never: Falling or dizzy when standing up, Sexual problems?, Trouble eating well? and Problems using the telephone? and seldom: Teeth or denture problems? and Tiredness or fatigue? Have you fallen 2 or more times in the past year?: No Are you afraid of falling?: No Are you a smoker?: no During the past 4 weeks, how many drinks of wine, beer, or other alcoholic beverages did you have?: no alcohol at all Do you exercise for about 20 minutes 3 or more times a week?: yes, some of the time Have you been given information to help with the following?: no: Hazards in your house that might hurt you? and no: Keeping track of your medications? How often do you have trouble taking medicines the way you have been told to take them?: I always take medicine as prescribed How confident are you that you can control & manage most of your health problem s?: very confident What is your race?: White Mini Mental State Exam (MMSE) Orientation What is the (year) (season) (date) (day) (month)?: year (2022), season (fall), date (01/23/2023), day (Thursday) and month (December) Where are we (state) (county) (town or city) (hospital) (floor)?: state ([place]), county ([place]), town or city ([place]) and hospital/clinic ([facility]) Score Score: 9 Activity of Daily Living Bathing - sponge bath, tub bath or shower: receives no assistance (gets in/out by self, if usual bathing means Dressing - getting clothes from closets & drawers, including inner/outer garments & fasteners.: gets clothes & gets completely dressed without help Toileting - going to the 'toilet room' for urine/bowel elimination & cleaning self/arranging clothes: goes to toilet room, cleans self, arranges clothes without help Transfer: moves in & out of bed and chair without help (may use support object) Continence: controls urination/bowel movements completely by self Feeding: feeds self without help Total Score: 0 Information obtained from: patient Using telephone: independent Traveling: independent Shopping: independent Preparing meals: independent Housework: independent Taking medicine: independent Managing money: independent PHQ-9 Over the last 2 weeks, how often have you been bothered by any of the following problems? 1. Little interest or pleasure in doing things: not at all 2. Feeling down, depressed, or hopeless: not at all 3. Trouble falling or staying asleep, or sleeping too much: not at all 4. Feeling tired or having little energy: not at all 5. Poor appetite or overeating: not at all 6. Feeling bad about yourself - or that you are a failure or have let yourself or your family down: not at all 7. Trouble concentrating on things, such as reading the newspaper or watching television: not at all 8. Moving or speaking so slowly that other people could have noticed. Or the opposite - being so fidgety or restless that you have been moving around a lot more than usual: not at all 9. Thoughts that you would be better off or of hurting yourself in some way: not at all Total score: 0 Depression Screening Interpretation: Negative Depression Screening Done: Yes 76917 - PHQ-9 Billing: Yes Source: Developed by Drs. Arron Summers, Bradley Patel and colleagues, with an educational deni from [employer]. AUDIT C Alcohol Use Questionnaire (AUDIT-C) 1. How often do you have a drink containing alcohol?: Never 2. How many drinks containing alcohol do you have on a typical day when you are drinking?: 1 or 2 3. How often do you have six or more drinks on one occasion?: Never Total Score: 0 SELIN-7 AMB Questionnaire SELIN-7 Date SELIN - 7 assessed: 01/23/23 Feeling nervous, anxious, or on edge: 0 = Not at all Not being able to stop or control worryin = Not at all Worrying too much about different things: 0 = Not at all Trouble relaxin = Not at all Being so restless that it is hard to sit still: 0 = Not at all Becoming easily annoyed or irritable: 0 = Not at all Feeling afraid as if something awful might happen: 0 = Not at all Total SELIN-7 score (0-4 normal; 5-9 mild; 10-14 moderate; 15-21 severe): 0 Source: Developed by Drs. Arron Summers, Bradley Patel and colleagues, with an educational deni from [employer]. Physical Exam Vital Signs: Last Vital Signs Pulse 84 01/23/23 08:25 BP 122/78 01/23/23 08:25 Pulse Ox 97 01/23/23 08:25 Oxygen Delivery Method Room Air 01/23/23 08:25 BMI result Body Mass Index 43.3 Assessment & Plan Assessment & Plan (1) Encounter for initial annual wellness visit (AWV) in Medicare patient: Code(s): Z00.00 - Encounter for general adult medical examination without abnormal findings Plan: Medical wellness checklist discussed with patient, reviewed and updated. Copy given. (2) Advanced directives, counseling/discussion: Code(s): Z71.89 - Other specified counseling Plan: Initiated the conversation about Advanced Directives. Advanced Directives help patients prepare for current and future decisions about their medical treatment and place of care. Discussed with patient that it is a process where a patients current condition and prognosis are reviewed, their wishes for information regarding their illness are elicited, and likely medical dilemmas are presented and options discussed. The form can be amended as needed, reviewed yearly and make changes as needed (3) Atrial fibrillation, chronic: Code(s): I48.20 - Chronic atrial fibrillation, unspecified Plan: Currently on apixaban 5 mg 1 tablet b.i.d. and on digoxin 125 mcg daily as well as metoprolol tartrate 50 mg 1 tablet b.i.d., followed by cardiology (4) Non-pressure chronic ulcer of buttock: Comment: [place] [facility] [place] and [place] sees Dr. Ortega in [place] [facility] Code(s): L98.419 - Non-pressure chronic ulcer of buttock with unspecified severity Plan: Followed by Dr. Ortega and [place] [facility] (5) Moderate persistent allergic asthma: Code(s): J45.40 - Moderate persistent asthma, uncomplicated Plan: Continue Symbicort and fasenra, followed by Pulmonary (6) Colostomy in place: Code(s): Z93.3 - Colostomy status (7) Crohn's disease of perianal region with fistula: Code(s): K50.113 - Crohn's disease of large intestine with fistula Plan: Currently on balsalazide (8) Morbid obesity due to excess calories: Code(s): E66.01 - Morbid (severe) obesity due to excess calories (9) FABIOLA on CPAP: Code(s): G47.33 - Obstructive sleep apnea (adult) (pediatric); Z99.89 - Dependence on other enabling machines and devices Plan: Followed by Pulmonary Orders: Referrals Cologuard Test Z12.11 - Encounter for screening for malignant neoplasm of colon, Z12.12 - Encounter for screening for malignant neoplasm of rectum Quality Reporting (2019) Depression/Bipolar (159/160/161/177) PHQ-9: Total score: 0 Coding Level of Care Code Medicare First (G0438) Diagnoses Encounter for initial annual wellness visit (AWV) in Medicare patient Z00.00 Advanced directives, counseling/discussion Z71.89 Atrial fibrillation, chronic I48.20 Non-pressure chronic ulcer of buttock L98.419 Moderate persistent allergic asthma J45.[address] Z93.3 Crohn's disease of perianal region with fistula K50.113 Morbid obesity due to excess calories E66.01 FABIOLA on CPAP G47.33; Z99.89 CPT Codes Advance Care Planning - Time spent: 16-45 minutes ([id number]) Advance Care Planning Advance Care Planning discussion: Completed/Scanned Date of discussion: 01/23/23 Who was present: Patient Forms completed: Health Care Proxy and MOLST Time spent: 16-45 minutes Actual minutes spent: 16
[2023-01-23 08:25] VITALS: BP 122/78; PULSE 84; O2SAT 97; BMI 43.3
== END 2023-01-23 09:33 | disposition home or self-care (01) ==
PROVIDERS: Visit Provider Internal Medicine
DX: Z00.00 Encounter for general adult medical examination without abnormal findings (principal); I48.20 Chronic atrial fibrillation, unspecified; L98.419 Non-pressure chronic ulcer of buttock with unspecified severity; Z93.3 Colostomy status; K50.113 Crohn's disease of large intestine with fistula; E66.01 Morbid (severe) obesity due to excess calories; J45.40 Moderate persistent asthma, uncomplicated; Z71.89 Other specified counseling; G47.33 Obstructive sleep apnea (adult) (pediatric); Z99.89 Dependence on other enabling machines and devices
CPT/HCPCS: 99497; G0402; G0438

== ENCOUNTER 2023-02-23 07:50 | Outpatient (REF) | payer MEDICARE, SELFPAY | END 2023-02-23 07:51 | disposition home or self-care (01) | LOC: HO.MDS 07:50 | PROVIDERS: Visit Provider Internal Medicine Pulmonary Disease | DX: J45.50 Severe persistent asthma, uncomplicated (principal) | CPT/HCPCS: 96372; J0517 ==

== ENCOUNTER 2023-03-18 08:18 | Inpatient (IN) | payer MEDICARE, SELFPAY ==
[2023-03-18] VITALS (8 sets, daily range): BP systolic 91–119; BP diastolic 51–70; PULSE 86–120; RESP 17–28; TEMP 36.6–39.1; O2SAT 88–96; BMI 41.8
--- NOTE | ~2023-03-18 | XR_ITS ---
EXAMINATION: XR CHEST CLINICAL INFORMATION: Shortness of breath COMPARISON: Chest radiograph 10/22/2022 CT chest 10/23/2021 and 06/19/2021 TECHNIQUE: Frontal view of the chest was obtained. FINDINGS: The heart and pulmonary vessels appear normal. There is no evidence of CHF. No pleural effusions are seen. Some coarse reticular nodular markings are seen which may correspond to some mild peribronchial thickening seen on prior CT scans. No focal consolidations or suspicious lung masses are seen. XR/XR chest 1V IMPRESSION: No acute intrathoracic disease. Some mild peribronchial thickening is present.
--- NOTE | 2023-03-18 08:42 | ECG_ITS ---
Test Reason : SOB Blood Pressure : / mmHG Vent. Rate : 106 BPM Atrial Rate : 000 BPM P-R Int : 000 ms QRS Dur : 086 ms QT Int : 338 ms P-R-T Axes : 000 -15 000 degrees QTc Int : 448 ms Atrial fibrillation with rapid ventricular response Abnormal ECG When compared with ECG of 20-AUG-2022 08:58, Vent. rate has increased BY 39 BPM Referred By: Jeremy Blount Electronically Signed By:KAYLIE BANG MD
--- NOTE | 2023-03-18 08:47 | ED.URI ---
HPI - URI/Sore Throat General Chief Complaint: Upper Respiratory Symptoms Stated Complaint: Cough Not Feeling Well Time Seen by Provider: 03/18/23 08:35 Source: patient Mode of arrival: ambulatory Limitations: no limitations History of Present Illness HPI Narrative: this is a 67-year-old male history of AFib anticoagulated, FABIOLA on CPAP, obesity, Crohn's disease with colostomy in place, presenting to the emergency department complaints of cough, fatigue, malaise, myalgia, shortness of breath all of which started yesterday acutely worsening. Shortness of breath worse with exertion better at rest. Patient comes into the department is saturating in the mid 80s, placed on 2 L nasal cannula immediately with noted labored breathing. Patient denies chest pain, fevers, chills, nausea, vomiting, sick contacts, headache, vision changes, dizziness. Related Data Home Medications Medication Instructions Recorded Confirmed balsalazide 750 mg capsule 2,250 mg PO TID 03/02/20 01/23/23 krill oil 500 mg capsule 500 mg PO DAILY 09/11/20 01/23/23 lactobacillus combination no.9 4 4,000 mmu cells PO DAILY 09/11/20 01/23/23 billion cell capsule (Adult 50 Plus Probiotic) multivitamin 1 tab PO DAILY 09/11/20 01/23/23 cholecalciferol (vitamin D3) 25 25 mcg PO DAILY 06/05/21 01/23/23 mcg (1,000 unit) tablet nystatin 100,000 unit/gram topical 1 appl topical BID 11/16/21 01/23/23 powder triamcinolone acetonide 0.1 % appl topical BID PRN Rash 07/24/22 01/23/23 topical cream melatonin 10 mg tablet 10 mg PO BEDTIME PRN Insomnia 11/19/22 01/23/23 Previous Rx's Medication Instructions Recorded inhalational spacing device #1 ea 09/11/20 (BreatheRite MDI Spacer) nystatin-triamcinolone 100,000 1 appl topical BID 10 days #30 12/20/21 unit/g-0.1 % topical cream grams benralizumab 30 mg/mL subcutaneous 30 mg subcut Q8W #1 mL 03/18/22 syringe (Liyah) digoxin 125 mcg (0.125 mg) tablet 125 mcg PO DAILY 90 days #90 tabs 06/09/22 apixaban 5 mg tablet (Eliquis) 5 mg PO BID 90 days #180 tabs 07/04/22 metoprolol tartrate 50 mg tablet 50 mg PO BID #180 tabs 07/04/22 furosemide 20 mg tablet 20 mg PO DAILY@1200 #90 tabs 12/04/22 albuterol sulfate 90 mcg/actuation 2 puff inhalation Q4H PRN for 01/06/23 aerosol inhaler (Ventolin HFA) wheezing #36 grams ferrous sulfate 325 mg (65 mg 325 mg PO DAILY #90 tabs 03/04/23 iron) tablet Symbicort 160 mcg-4.5 2 puff PO BID #10.2 grams 03/10/23 mcg/actuation HFA aerosol inhaler (budesonide-formoterol) Allergies Allergy/AdvReac Type Severity Reaction Status Date / Time ceftriaxone AdvReac Mild Vomiting Verified 03/18/23 08:24 Review of Systems Review of Systems: as per HPI Yes all other systems are reviewed and are negative PMFSH Past Medical History Attestation statement: The following information was validated with the patient. 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 Anal fistula Surgical History History of bowel resection History of appendectomy History of creation of ostomy Family History Family History Father Emphysema lung HTN (hypertension) Pulmonary fibrosis Mother HTN (hypertension) Social History Social History Household Members: Significant Other Housing: Condominium Are you a primary manager urgent care to a significant other at home: No Do you presently have visiting nurse or other home services: No Alcohol intake: former Patient Tobacco Use Status: Never used Tobacco e-Cigarette/Vaping Use: Never Used Second Hand Smoke Exposure: No Advance Directives: Yes Advance Directives on File: Yes Advance Directives Date on File: 06/05/21 service: No Current occupational status: retired Cognitive needs: No Hearing needs: No Vision needs: Yes Physical Exam Vital Signs: Vital Signs: Last Vital Signs Temp 102.4 F H 03/18/23 08:24 Pulse 103 H 03/18/23 09:08 Resp 20 03/18/23 09:08 BP 115/70 03/18/23 08:24 Pulse Ox 88 L 03/18/23 08:24 O2 Del Method Room Air 03/18/23 08:24 BMI result Body Mass Index 41.8 vss Appearance: Alert.? Oriented X3.? + acute distress.? Head: Normocephalic, atraumatic, no step-offs or deformities Eyes: Pupils equal, round and reactive to light.? ENT: Pharynx normal.? Neck: Normal inspection.? Neck supple.? CVS: Normal heart rate and rhythm.? Pulses normal.? Respiratory: + respiratory distress.? Breath sounds diminished with faint crackles to bilateral lower lobes.? Abdomen: Soft and nontender.? Skin: Skin warm and dry.? Normal skin color.? Normal skin turgor.? Extremities: No lower extremity edema.? No calf ttp. 5/5 strength to bilateral upper and lower extremities Neuro: Oriented X 3.? No motor deficit.? No sensory deficit. CN 2-12 intact Course Reevaluation(s) Reevaluation #1: CBC appears to be around patient's baseline with a low hemoglobin, no acute findings. Chemistry no acute findings requiring intervention. Troponin negative, EKG nonischemic will repeat troponin at the 3 hour mariah. BNP 131, no signs of overt fluid overload. Patient's chest x-ray still pending. He is saturating 88% on room air, again nasal cannula put on patient. He was given Tylenol for fever. Time: 10:10 Reevaluation #2: Patient is noted to have no acute intrathoracic disease some mild peribronchial thickening is present. COVID negative however flu / COVID/RSV still pending. This is likely viral. Will give Decadron as well. Plan hospital admission for acute hypoxia, bronchitis. UA still pending and flu/ COVID/ RSV still pending upon time of admission to hospital. Time: 10:26 Reevaluation #3: patient was positive for influenza, symptoms started less than 48 hours ago therefore Tamiflu ordered. First dose will be given here in the emergency department Medications Administered Discontinued Medications Generic Name Dose Route Start Last Admin Trade Name Freq PRN Reason Stop Dose Admin Albuterol/Ipratropium 3 ml 03/18/23 08:59 03/18/23 09:08 Albuterol/Iprat 2.5/0.5mg 3 Ml Ampul.Neb INHALE 03/18/23 09:00 3 ml ONCE ONE Administration Medical Decision Making Medical Decision Making [facility] Narrative: 0853 67-year-old male presents for evaluation of fatigue, malaise, cough, shortness of breath x2 days. Physical examination diminished breath sounds bilaterally with faint crackles bilateral lower lobes. History and physical exam concerning for possible pneumonia versus viral illness with acute hypoxia. Will rule out consolidation/ pneumonia on x-ray, unlikely acute respiratory distress, pneumothorax, dissection, ACS. Patient anticoagulated unlikely pulmonary embolism. Although patient is noted to be tachycardic, febrile and hypoxic I suspect this is secondary to viral illness not bacterial infection/sepsis. Plan at this time labs, imaging, viral test, urine, EKG. Differential Diagnosis Differential Diagnoses: The differential diagnosis associated with the presentation includes History and physical exam concerning for possible pneumonia versus viral illness with acute hypoxia. Will rule out consolidation/ pneumonia on x-ray, unlikely acute respiratory distress, pneumothorax, dissection, ACS. Patient anticoagulated unlikely pulmonary embolism. Admission/Observation Consideration of admission/observation: Escalation of care including admission/observation considered Lab Data [facility] Lab Attestation statement: I reviewed the patient's lab results. 03/18/23 09:42 03/18/23 09:42 Labs: Lab Results 03/18/23 Range/Units 09:42 WBC 8.4 (4.8-10.8) X10*3/uL RBC 4.86 (4.60-5.80) X10*6/uL Hgb 12.7 L (14.0-18.0) g/dl Hct 41.9 L (42.0-52.0) % MCV 86.2 (80.0-98.0) fL MCH 26.1 L (27.0-33.0) pg MCHC 30.3 L (31.0-36.0) g/dl RDW 15.7 (11.0-16.0) % Plt Count 255 (160-400) X10*3/uL MPV 10.3 (9.4-12.4) fL Immature Gran % (Auto) 0.7 H (0.0-0.4) % Neut % (Auto) 79.0 H (45-73) % Lymph % (Auto) 7.2 L (20-40) % [place] % (Auto) 13.1 H (2-11) % Eos % (Auto) 0.0 (0-4) % Baso % (Auto) 0.0 (0-2) % Lymph # (Auto) 0.6 L (1.2-4.9) X10*3/uL [place] # (Auto) 1.1 (0.1-1.2) X10*3/uL Eos # (Auto) 0.0 (0.0-0.4) X10*3/uL Baso # (Auto) 0.0 (0.0-0.2) X10*3/uL Abs Immat Gran (auto) 0.06 H (0.00-0.03) X10*3/uL Absolute Neuts (auto) 6.6 (2.0-8.3) x10*3/uL Absolute Nucleated RBC 0.000 (0.0-0.012) X10*3/uL Nucleated RBC % (auto) 0.0 (0.0-0.2) /100WBC PT 17.1 H (11.1-13.3) SEC INR 1.4 H (0.9-1.1) Sodium 139 (135-145) mmol/L Potassium 3.7 D (3.3-5.1) mmol/L Chloride 104 (96-108) mmol/L Carbon Dioxide 27 (22-29) mmol/L Anion Gap 12 (12-20) BUN 13 (9-16) mg/dL Creatinine 1.16 (0.5-1.4) mg/dL Estim Creat Clear Calc 84.2 Estimated GFR > 60 Random Glucose 107 (60-115) mg/dL Lactic Acid 2.9 H* (0.5-2.0) mmol/L Calcium 8.4 D (8.4-10.2) mg/dL Magnesium 1.9 (1.6-2.6) mg/dL Total Bilirubin 0.6 (0.0-1.0) mg/dL AST 41 H (5-37) U/L ALT 23 (0-40) U/L Alkaline Phosphatase 107 (39-117) U/L Troponin I High Sens 4.5 D (<3.5-35.0) ng/L B-Natriuretic Peptide 131 H (<100) pg/mL Total Protein 7.1 (6.5-8.0) g/dL Albumin 3.3 L (3.5-5.0) g/dL COVID-19 (LALITHA) Negative (Negative) COVID-19 Clin Com See Note Influenza Type A (PCR) POSITIVE A (Negative) Influenza Type B (PCR) NEGATIVE (Negative) RSV RNA Qual (PCR) NEGATIVE (Negative) SARS-CoV-2 RNA (RT-PCR) NEGATIVE (Negative) Independent Interpretation I performed an independent interpretation of an: EKG ( Ventricular rate of 106, SC berries, QRS normal, QT/ QTC normal. EKG with atrial fibrillation with rapid ventricular response no ST elevations or inversions concerning for acute ischemia) and Plain X-Ray Radiology Impression Discussion of test interpretation with radiology: I have reviewed the radiologist's reading. Critical Care Time Critical Care Time Critical Care Time: Yes Total Critical Care Time: 35 Attestation: I attest to this time spent taking care of the patient, obtaining history, physical, reviewing labs, imaging, speaking to hospitalist. Discharge Plan Discharge Clinical Impression: Bronchitis, Hypoxia, Influenza Patient Disposition: Admitted As Inpatient
[2023-03-18] MEDS: Albuterol/Iprat 2.5/0.5MG 3 ML AMPUL.NEB INHALE ×3 (09:08→18:56)
[2023-03-18 09:50] LABS: MANUAL DIFF FLAG NO
[2023-03-18 09:53] LABS: Hematocrit 41.9 % (42.0-52.0); Hemoglobin 12.7 g/dl (14.0-18.0); Imm Gran Abs Auto 0.06 X10*3/uL (0.00-0.03); Imm Gran Pct Auto 0.7 % (0.0-0.4); Lymphocytes Absolute Auto 0.6 X10*3/uL (1.2-4.9); Lymphocytes Percent Auto 7.2 % (20-40); Mean Corpuscular HGB Conc 30.3 g/dl (31.0-36.0); Mean Corpuscular Hemoglobin 26.1 pg (27.0-33.0); Mean Corpuscular Volume 86.2 fL (80.0-98.0); Mean Platelet Volume 10.3 fL (9.4-12.4); Monocytes Absolute Auto 1.1 X10*3/uL (0.1-1.2); Monocytes Percent Auto 13.1 % (2-11); Neutrophils Absolute Auto 6.6 x10*3/uL (2.0-8.3); Platelet Count 255 X10*3/uL (160-400); Red Blood Count 4.86 X10*6/uL (4.60-5.80); Red Cell Distribution Width 15.7 % (11.0-16.0); White Blood Count 8.4 X10*3/uL (4.8-10.8)
[2023-03-18 09:59] LABS: INTERNATIONAL NORM RATIO 1.4 (0.9-1.1); Prothrombin Time 17.1 SEC (11.1-13.3)
[2023-03-18 10:04] LABS: COVID-19 Test Negative (Negative); IDNOW Serial# 08D9AD1C
[2023-03-18 10:14] LABS: Alanine Aminotransferase 23 U/L (0-40); Albumin Level 3.3 g/dL (3.5-5.0); Alkaline Phosphatase 107 U/L (39-117); Anion Gap 12 (12-20); Aspartate Amino Transferase 41 U/L (5-37); Bilirubin Total 0.6 mg/dL (0.0-1.0); Blood Urea Nitrogen 13 mg/dL (9-16); Calcium 8.4 mg/dL (8.4-10.2); Carbon Dioxide 27 mmol/L (22-29); Chloride 104 mmol/L (96-108); Creatinine Clr Calc Pharmacy 84.2; Estimated Glomerular Filt Rate > 60; Glucose Random 107 mg/dL (60-115); Magnesium 1.9 mg/dL (1.6-2.6); Potassium 3.7 mmol/L (3.3-5.1); Sodium 139 mmol/L (135-145); Total Protein 7.1 g/dL (6.5-8.0)
[2023-03-18 10:18] LABS: B Type Natriuretic Peptide 131 pg/mL (<100)
[2023-03-18 10:22] LABS: Lactic Acid 2.9 mmol/L (0.5-2.0); Troponin-I High Sensitivity 4.5 ng/L (<3.5-35.0)
[2023-03-18 10:33] LABS: Influenza A PCR POSITIVE (Negative); Influenza B PCR NEGATIVE (Negative); Resp Syncy Virus RNA Qual PCR NEGATIVE (Negative); SARS COV2 PCR INHOUSE NEGATIVE (Negative)
[2023-03-18] MEDS: Oseltamivir Phosphate 75 MG CAPSULE PO ×2 (10:50→21:49)
[2023-03-18] MEDS: Azithromycin 500 MG in 0.9 % Sodium Chloride 250 ML 125 MG IV (11:00)
[2023-03-18] MEDS: dexAMETHasone sod phosphate 10 MG/ML VIAL IVPUSH (11:01)
[2023-03-18] MEDS: Acetaminophen 325 MG TABLET 975 MG PO (11:02)
--- NOTE | 2023-03-18 11:40 | PHA.MEDREC ---
Pharmacy Consult ? Medication Reconciliation Pharmacy has completed the medication reconciliation. Spoke with patient to confirm medications. He reports last getting the Fasenra injection about a week ago.
[2023-03-18 11:47] LABS: Reflex Lactate? Lactic Acid Added
--- NOTE | 2023-03-18 12:01 | PM.IMHP ---
History of Present Illness Date of Service: 03/18/23 Chief Complaint: cough, fever, hypoxia This is a 67 year old male with a PMH as outlined below who preesents to the ED with a 1 day history of non-productive cough, tachycardia and hypoxia. 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 He used his home pulse ox monitor and noted his sats dipping below 88 and HR above 120. His symptoms continued to progress and on the day or arrival, he reproted fevers and worsening of his symptoms and hence he presented to the ED. He denies any chills, he denies any sick contacts. No loss of appetite, n/v/d. In the ED, he was found to be febrile over 102; tachycardic over 100, tachypenic in the mid to upper 20s and hypoxic down below 88%; Work up showed a cxr with peribronchial thickening, +flu, lactate 2.8, BNP in the 100s. He was given nebs, IV decadron, IV azithromycin, and tamiflu. He remains persistently hypoxic and tachycardic and now will be admitted for further treatment. Review of Systems Review of Systems: Negative except HPI/interval history. 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 Anal fistula Family History Father Emphysema lung HTN (hypertension) Pulmonary fibrosis Mother HTN (hypertension) Surgical History History of bowel resection History of appendectomy History of creation of ostomy Social History Household Members: Spouse Housing: Condominium Are you a primary pharmacy care coordinator to a significant other at home: No Do you presently have visiting nurse or other home services: No Alcohol intake: former Patient Tobacco Use Status: Never used Tobacco e-Cigarette/Vaping Use: Never Used Second Hand Smoke Exposure: No Use of substances other than those prescribed or required for medical reasons: No Currently Displaying Signs/Symptoms of Drug Intoxication Withdrawal: No Have you been hit, kicked, punched, or otherwise hurt by someone within the past year? If so, by whom?: No Do you feel safe in your current relationship?: Yes Is there a partner from a previous relationship who is making you feel unsafe now?: No Are you made to feel afraid or neglected: No Advance Directives: Yes Advance Directives on File: Yes Advance Directives Date on File: 06/05/21 Do you have thoughts of harming others: None Do you have a plan to hurt others: No Plan Recently lost weight without trying: No Nutrition Risks: No Nutritional Risk Poor oral hygiene: No service: No Current occupational status: retired Cognitive needs: No Hearing needs: No Vision needs: Yes Meds Allergies Allergy/AdvReac Type Severity Reaction Status Date / Time ceftriaxone AdvReac Mild Vomiting Verified 03/18/23 08:24 Active Medications: Current Medications Azithromycin 500 mg/ Sodium (Chloride) 250 mls @ 125 mls/hr IV ONCE ONE Stop: 03/18/23 12:21 Last Admin: 03/18/23 11:00 Dose: 125 mls/hr Home Medications Medication Instructions Recorded Confirmed Last Taken Type balsalazide 750 mg capsule 2,250 mg PO TID 03/02/20 03/18/23 12/08/22 History krill oil 500 mg capsule 500 mg PO DAILY 09/11/20 03/18/23 11/16/21 History lactobacillus combination no.9 4 4,000 mmu cells PO DAILY 09/11/20 03/18/23 11/16/21 History billion cell capsule (Adult 50 Plus Probiotic) multivitamin 1 tab PO DAILY 09/11/20 03/18/23 11/16/21 History cholecalciferol (vitamin D3) 25 25 mcg PO DAILY 06/05/21 03/18/23 11/16/21 History mcg (1,000 unit) tablet melatonin 10 mg tablet 10 mg PO BEDTIME PRN Insomnia 11/19/22 03/18/23 Unknown History Physical Exam Vital Signs and Narrative: Vital Signs: Last Vital Signs Temp 102.0 F H 03/18/23 11:04 Pulse 99 03/18/23 11:04 Resp 28 H 03/18/23 11:04 BP 119/64 03/18/23 11:04 Pulse Ox 94 03/18/23 11:04 O2 Del Method Nasal Cannula 03/18/23 11:04 O2 Flow Rate 2 03/18/23 11:04 BMI result Body Mass Index 41.8 Const: Other: Constitutional - Awake and Alert, appears uncomfortable Eyes - PERRLA, EOMI Cardiovascular - S1S2, RRR, No edema Respiratory - very poor entry bilaterally; tachypenic into the 20s with coversational exertion; saturating around 90% on 2L Gastrointestinal - NT / ND; +BS; No rebound or guarding - No CVA tenderness Extremities - no calf tenderness bilaterally, no swelling Musculoskeletal - Normal inspection, normal ROM Skin - Warm/Dry Neurological - Alert & oriented x3, No focal deficit Psychological - Appropriate affect Results Labs 03/18/23 09:42 03/19/23 07:09 Labs: Laboratory Results - last 24 hr 03/18/23 09:42 MCV 86.2 MCH 26.1 L MCHC 30.3 L RDW 15.7 Plt Count 255 MPV 10.3 Immature Gran % (Auto) 0.7 H Neut % (Auto) 79.0 H Lymph % (Auto) 7.2 L [place] % (Auto) 13.1 H Eos % (Auto) 0.0 Baso % (Auto) 0.0 Lymph # (Auto) 0.6 L [place] # (Auto) 1.1 Eos # (Auto) 0.0 Baso # (Auto) 0.0 Abs Immat Gran (auto) 0.06 H Absolute Neuts (auto) 6.6 Absolute Nucleated RBC 0.000 Nucleated RBC % (auto) 0.0 PT 17.1 H INR 1.4 H Anion Gap 12 Estim Creat Clear Calc 84.2 Estimated GFR > 60 Random Glucose 107 Lactic Acid 2.9 H* Calcium 8.4 D Magnesium 1.9 Total Bilirubin 0.6 AST 41 H ALT 23 Alkaline Phosphatase 107 B-Natriuretic Peptide 131 H Total Protein 7.1 Albumin 3.3 L COVID-19 (LALITHA) Negative COVID-19 Clin Com See Note Influenza Type A (PCR) POSITIVE A Influenza Type B (PCR) NEGATIVE RSV RNA Qual (PCR) NEGATIVE SARS-CoV-2 RNA (RT-PCR) NEGATIVE Imaging Radiologist's Impressions: Impressions Chest X-Ray 03/18/23 09:15 IMPRESSION: No acute intrathoracic disease. Some mild peribronchial thickening is present. Assessment and Plan (1) Influenza: Status: Acute (2) Hypoxia: Status: Acute Plan 67 yo M with PAF, HFpEF, Crohn's on immunosuppresants, andressa, obesity who presents with hypoxia, fevers and tachycardia. He is found to be + for the flu and now will be admitted for further management. 1. Viral sepsis secondary to influenza A Meets sepsis criteria with fevers, tachycardia, tachypnea continue tamiflu (symptoms began about 24 hours prior) check procalcitonin, hold off on IV antibiotics at this time 2. Acute respiratory failure with hypoxia due to #1 and #3 continue O2 with goal of 92; wean as tolerated BNP slightly elevated, but clinically not in volume overload 3. Asthma exacebation minimal air entry b/l; will commence scheduled updrafts and systemic steroids likely due to #1 4. PAF with mildly elevated rates will resume baseline meds and if needed, titrate vs place on IV drip 5. HFpEF, chronic continue baseline meds 6. Crohn's disease, chronic continue baseline meds 7. Morbid Obesity weight loss encouraged Given patients underlying immunosuppression status (due to his Crohn's medications) and now sepsis + respiratory failure, he is as increased risk for decompensation. Therefore, his admission is expected to span 2 midnights and hence will be admitted as inpatient. Quality Stroke Does the patient have a stroke diagnosis?: No VTE Prior VTE?: No VTE Risk Level:: Medical - moderate - high VTE Device Contraindication: Treatment Not Indicated VTE Drug Contraindication: N/A - Med Ordered
[2023-03-18 12:42] LABS: ~Lactic Acid-LAB USE ONLY 1.7 mmol/L (0.5-2.0)
[2023-03-18] MEDS: Metoprolol Tartrate 50 MG TABLET PO ×2 (13:20→20:47)
[2023-03-18] MEDS: Digoxin 0.125 MG TABLET PO (13:21)
[2023-03-18] MEDS: Apixaban 5 MG TABLET PO ×2 (13:22→20:47)
[2023-03-18 13:26] LABS: Procalcitonin 0.14 ng/mL
[2023-03-18] MEDS: methylPREDNISolone Sod Succ 40 MG/ML VIAL IVPUSH (18:47)
[2023-03-18] MEDS: Balsalazide Disodium 750 MG CAPSULE 2250 MG PO (20:47)
[2023-03-19] VITALS (8 sets, daily range): BP systolic 99–113; BP diastolic 55–64; PULSE 75–112; RESP 15–20; TEMP 36–37; O2SAT 95–98
[2023-03-19] MEDS: 0.9 % Sodium Chloride Flush 3 ML SYRINGE IVFLUSH ×3 (02:58→16:32)
[2023-03-19] MEDS: methylPREDNISolone Sod Succ 40 MG/ML VIAL IVPUSH ×3 (03:00→16:32)
[2023-03-19] MEDS: Albuterol/Iprat 2.5/0.5MG 3 ML AMPUL.NEB INHALE ×2 (04:25→08:17)
[2023-03-19 08:18] LABS: Anion Gap 13 (12-20); Blood Urea Nitrogen 16 mg/dL (9-16); Calcium 8.9 mg/dL (8.4-10.2); Carbon Dioxide 27 mmol/L (22-29); Chloride 104 mmol/L (96-108); Estimated Glomerular Filt Rate > 60; Glucose Random 159 mg/dL (60-115); Sodium 140 mmol/L (135-145)
--- NOTE | 2023-03-19 09:29 | MHC.CM.PN ---
IMM 03/19. Pt lives at home with his , is self-care. HCP on file and verified. Pts sister can transport him home. PCP: Dr. Isabel Tilley
[2023-03-19] MEDS: Cholecalciferol (Vitamin D3) 25 MCG TABLET PO (10:19)
[2023-03-19] MEDS: Ferrous Sulfate 324 MG TABLET.DR PO (10:19)
[2023-03-19] MEDS: Multivitamin TABLET 1 TAB PO (10:19)
[2023-03-19] MEDS: Balsalazide Disodium 750 MG CAPSULE 2250 MG PO ×3 (10:19→22:02)
[2023-03-19] MEDS: Oseltamivir Phosphate 75 MG CAPSULE PO ×2 (10:20→21:55)
[2023-03-19] MEDS: Metoprolol Tartrate 50 MG TABLET PO ×2 (10:20→22:03)
[2023-03-19] MEDS: Apixaban 5 MG TABLET PO ×2 (10:20→22:03)
[2023-03-19] MEDS: Digoxin 0.125 MG TABLET PO (10:20)
--- NOTE | 2023-03-19 12:06 | P.PNIM_ITS ---
Subjective Subjective Date of Service: 03/19/23 Interval History: rapid AF this AM after neb treatment, rate in 140s. currently in 100s. c/o sore throat, cough. off O2 Review of Systems Review of Systems: Yes all other systems are reviewed and are negative Physical Exam 2 Vital Signs: Vital Signs: Last Vital Signs Temp 98.5 F 03/19/23 11:41 Pulse 112 H 03/19/23 11:41 Resp 20 03/19/23 11:41 BP 102/61 03/19/23 11:41 Pulse Ox 95 03/19/23 11:41 O2 Del Method Room Air 03/19/23 11:41 O2 Flow Rate 2 03/19/23 07:52 BMI result Body Mass Index 41.8 Gen: in no acute distress HEENT: sclera anicteric, moist mucus membranes Neck: supple Lungs: diminished Heart: rapid, irregular, no murmurs Abd: soft, non-tender, non-distended, obese Ext: no edema Skin: warm/well-perfused Neuro: alert and oriented x3, no focal findings Psych: appropriate affect Objective Data Active Medications Acetaminophen (Acetaminophen 325 Mg Tablet) 650 mg PO Q6H PRN PRN Reason: Pain, Mild (Pain Scale 1-3) Albuterol/Ipratropium (Albuterol/Iprat 2.5/0.5mg 3 Ml Ampul.Neb) 3 ml INHALE RQ4H [facility] Last Admin: 03/19/23 11:11 Dose: Not Given Documented By: ROLAND Non-Admin Reason: See Note Apixaban (Apixaban 5 Mg Tablet) 5 mg PO BID [facility] Last Admin: 03/19/23 10:20 Dose: 5 mg Documented By: MITCH Balsalazide (Balsalazide Disodium 750 Mg Capsule) 2,250 mg PO TID [facility] Last Admin: 03/19/23 10:19 Dose: 2,250 mg Documented By: MITCH Digoxin (Digoxin 0.125 Mg Tablet) 0.125 mg PO DAILY [facility] Last Admin: 03/19/23 10:20 Dose: 0.125 mg Documented By: MITCH Ferrous Sulfate (Ferrous Sulfate 324 Mg Tablet.) 324 mg PO DAILY [facility] Last Admin: 03/19/23 10:19 Dose: 324 mg Documented By: MITCH Furosemide (Furosemide 20 Mg Tablet) 20 mg PO DAILY@1200 [facility]; Protocol Melatonin (Melatonin 3 Mg Tablet) 9 mg PO BEDTIME PRN PRN Reason: Insomnia Methylprednisolone Sodium Succinate (Methylprednisolone Sod Succ 40 Mg/Ml Vial) 40 mg IVPUSH Q8H [facility] Last Admin: 03/19/23 10:20 Dose: 40 mg Documented By: MITCH Metoprolol Tartrate (Metoprolol Tartrate 50 Mg Tablet) 50 mg PO BID [facility]; Protocol Last Admin: 03/19/23 10:20 Dose: 50 mg Documented By: MITCH Metoprolol Tartrate (Metoprolol Tartrate 5 Mg/5 Ml Vial) 5 mg IVPUSH ONCE PRN PRN Reason: HR>120 Multivitamins/Vitamin C (Multivitamin Tablet) 1 tab PO DAILY [facility] Last Admin: 03/19/23 10:19 Dose: 1 tab Documented By: MITCH Ondansetron HCl (Ondansetron Hcl 4 Mg/2 Ml Vial) 4 mg IVPUSH Q8H PRN PRN Reason: Nausea and Vomiting Oseltamivir Phosphate (Oseltamivir Phosphate 75 Mg Capsule) 75 mg PO Q12H [facility] Stop: 03/22/23 22:01 Last Admin: 03/19/23 10:20 Dose: 75 mg Documented By: MITCH Sodium Chloride (0.9 % Sodium Chloride Flush 3 Ml Syringe) 3 ml IVFLUSH QSHIFT [facility] Last Admin: 03/19/23 10:20 Dose: 3 ml Documented By: MITCH Vitamin D (Cholecalciferol (Vitamin D3) 25 Mcg Tablet) 25 mcg PO DAILY [facility] Last Admin: 03/19/23 10:19 Dose: 25 mcg Documented By: MITCH Labs 03/18/23 09:42 03/19/23 07:09 Labs: Laboratory Results - last 24 hr 03/18/23 03/18/23 03/19/23 09:42 12:28 07:09 Hold Purple Top SEE NOTE Anion Gap 13 Estim Creat Clear Calc 93.0 Estimated GFR > 60 Random Glucose 159 H Lactic Acid F/U @ 2Hr 1.7 Calcium 8.9 Procalcitonin 0.14 Microbiology Microbiology Results: Microbiology 03/18/23 09:42 Blood Culture - Preliminary Blood - Venous No growth after 24 hours. Assessment and Plan (1) Influenza: Status: Acute Plan d2 67yo M with pAF, chronic HFpEF, Crohn's disease, FABIOLA on CPAP AHRF + viral sepsis due to influenza A - oseltamivir 03/18-03/22/23 - PCT low, no ABX at this time - weaned off O2 acute asthma exac due to influenza A - methlyprednisolone taper, nebs pAF with RVR - resume metoprolol tartrate for RC, give IV if needed - continue apixaban for AC chronic HFpEF - continue metoprolol tartrate, furosemide Crohn's disease - continue balsalazide morbid obesity - diet/exercise counseling VTE ppx - apixaban dispo - eventual home In my clinical judgment, the patient requires continued inpatient hospitalization for the following reasons: RVR, hypoxia resolving Total time managing care of this patient today: 35 minutes. Quality Stroke Does the patient have a stroke diagnosis?: No VTE Prior VTE?: No VTE Risk Level:: Medical - moderate - high VTE Device Contraindication: Treatment Not Indicated VTE Drug Contraindication: N/A - Med Ordered
[2023-03-19] MEDS: Throat Lozenge, Medicated LOZENGE 1 LOZENGE MUCOUS MEM ×2 (12:31→16:33)
[2023-03-19] MEDS: Furosemide 20 MG TABLET PO (12:31)
--- NOTE | 2023-03-19 18:09 | HO.WOUND ---
Wound Consult: Initial 67yr old male admitted to [facility] on? 03/18/23 12:08- See progress notes and H&P for detailed history. Wound consult placed for right buttock wound - Pt follows with the outpt wound clinic with Dr. Marin. Diagnosis of Hemangioma of skin and subcutaneous tissue - pt additionally follows with Dr. 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 Pt reports Dr. Moffett plan is to perform procedure to treat hemangioma and Dermatology treats topically with compound. Compound cream is at home and will use once at home. The patient reports he has not had bleeding from the area in a while. He requests ABD pads and uses his underwear to secure in place. He denies wanting a different dressing option such as a silicone foam dressing. Recommendations: 1. Buttocks - Cleanse with routine cleansing. Apply barrier skin prep if patient is agreeable. Apply ABD pad to area and use underwear to secure in place per pt request. Pt should continue to follow up with Outpt Wound Clinic Dr. Marin, Dr. Corona and Dermatology. Pt demonstrates understanding. Re-consult wound care Nurse for wound deterioration or wound changes.
--- NOTE | 2023-03-19 20:08 | PC.RT ---
pt refusing noc cpap states he is only here for 1 night so not needed. pt on room air in no resp distress, pt to call if needed
[2023-03-19] MEDS: Melatonin 3 MG TABLET 9 MG PO (22:03)
[2023-03-20] VITALS: BP 111/68; PULSE 68; RESP 16; TEMP 36.6; O2SAT 95
[2023-03-20 03:42] VITALS: BP 109/70; PULSE 72; RESP 16; TEMP 36; O2SAT 95
[2023-03-20] MEDS: methylPREDNISolone Sod Succ 40 MG/ML VIAL IVPUSH ×2 (04:06→09:37)
[2023-03-20] MEDS: 0.9 % Sodium Chloride Flush 3 ML SYRINGE IVFLUSH (04:09)
[2023-03-20 07:11] VITALS: BP 108/59; PULSE 89; RESP 20; TEMP 36.6; O2SAT 94
[2023-03-20] MEDS: Balsalazide Disodium 750 MG CAPSULE 2250 MG PO (09:37)
[2023-03-20] MEDS: Cholecalciferol (Vitamin D3) 25 MCG TABLET PO (09:38)
[2023-03-20] MEDS: Metoprolol Tartrate 50 MG TABLET PO (09:38)
[2023-03-20] MEDS: Oseltamivir Phosphate 75 MG CAPSULE PO (09:38)
[2023-03-20] MEDS: Multivitamin TABLET 1 TAB PO (09:38)
[2023-03-20] MEDS: Digoxin 0.125 MG TABLET PO (09:38)
[2023-03-20] MEDS: Ferrous Sulfate 324 MG TABLET.DR PO (09:38)
[2023-03-20] MEDS: Apixaban 5 MG TABLET PO (09:38)
--- NOTE | 2023-03-20 10:43 | P.DS_ITS ---
DS: Providers Provider Date of Service: 03/20/23 Date of admission: 03/18/23 12:08 Date of discharge: 03/20/23 Primary care physician: Isabel Tilley MD Consults: 03/19/23 15:34 Consult to Wound Care Routine Reason for consultation: right buttock chronic wound, bloody blisters ,some areas are open DS: Diagnosis Discharge Diagnosis (1) Influenza: Status: Acute (2) Acute respiratory failure with hypoxia: Status: Resolved (3) Acute exacerbation of moderate persistent extrinsic asthma: Status: Acute (4) Atrial fibrillation with rapid ventricular response: Status: Resolved (5) Viral sepsis: Status: Acute (6) Morbid obesity: Status: Acute DS: Summary Hospital Course Hospital Course: from admission H+P by hospitalist Michele Dyer, 03/18/23: This is a 67 year old male with a PMH as outlined below who preesents to the ED with a 1 day history of non-productive cough, tachycardia and hypoxia. 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 He used his home pulse ox monitor and noted his sats dipping below 88 and HR above 120. His symptoms continued to progress and on the day or arrival, he reproted fevers and worsening of his symptoms and hence he presented to the ED. He denies any chills, he denies any sick contacts. No loss of appetite, n/v/d. In the ED, he was found to be febrile over 102; tachycardic over 100, tachypenic in the mid to upper 20s and hypoxic down below 88%; Work up showed a cxr with peribronchial thickening, +flu, lactate 2.8, BNP in the 100s. He was given nebs, IV decadron, IV azithromycin, and tamiflu. He remains persistently hypoxic and tachycardic and now will be admitted for further treatment. 67yo M with pAF, chronic HFpEF, Crohn's disease, FABIOLA on CPAP, and mod persistent asthma who was admitted to the telemetry unit for AHRF, viral sepsis, and acute asthma exac due to influenza A. He was treated with steroids, oxygen, and oseltamivir and improved quickly. He was weaned off of oxygen. He had some AF/RVR related to nebulizer treatments, but this resolved with resuming his home metoprolol. He was discharged home with oseltamivir and prednisone to complete a 5-day course of the antiviral and the steroid. Time Attestation Discharge coordination time: Greater than 30 minutes Quality: Safe Use of Opioids Does Pt have an Active Cancer Diagnosis on the Problem List?: No Quality: Stroke Does the patient have a stroke diagnosis?: No Physical Exam Vital Signs: Vital Signs: Last Vital Signs Temp 97.9 F 03/20/23 07:11 Pulse 89 03/20/23 07:11 Resp 20 03/20/23 07:11 BP 108/59 L 03/20/23 07:11 Pulse Ox 94 03/20/23 07:11 O2 Del Method Room Air 03/20/23 07:11 O2 Flow Rate 2 03/19/23 07:52 BMI result Body Mass Index 41.8 Gen: in no acute distress HEENT: sclera anicteric, moist mucus membranes Neck: supple Lungs: clear bilaterally Heart: irregular, no murmurs Abd: soft, non-tender, non-distended, obese Ext: no edema Skin: warm/well-perfused Neuro: alert and oriented x3, no focal findings Psych: appropriate affect DS: Data Data Completed and Pending Completed studies during hospitalization [Text1]: Laboratory Results WBC 8.4 X10*3/uL (4.8-10.8) 03/18/23 09:42 RBC 4.86 X10*6/uL (4.60-5.80) 03/18/23 09:42 Hgb 12.7 g/dl (14.0-18.0) L 03/18/23 09:42 Hct 41.9 % (42.0-52.0) L 03/18/23 09:42 MCV 86.2 fL (80.0-98.0) 03/18/23 09:42 MCH 26.1 pg (27.0-33.0) L 03/18/23 09:42 MCHC 30.3 g/dl (31.0-36.0) L 03/18/23 09:42 RDW 15.7 % (11.0-16.0) 03/18/23 09:42 Plt Count 255 X10*3/uL (160-400) 03/18/23 09:42 MPV 10.3 fL (9.4-12.4) 03/18/23 09:42 Immature Gran % (Auto) 0.7 % (0.0-0.4) H 03/18/23 09:42 Neut % (Auto) 79.0 % (45-73) H 03/18/23 09:42 Lymph % (Auto) 7.2 % (20-40) L 03/18/23 09:42 [place] % (Auto) 13.1 % (2-11) H 03/18/23 09:42 Eos % (Auto) 0.0 % (0-4) 03/18/23 09:42 Baso % (Auto) 0.0 % (0-2) 03/18/23 09:42 Lymph # (Auto) 0.6 X10*3/uL (1.2-4.9) L 03/18/23 09:42 [place] # (Auto) 1.1 X10*3/uL (0.1-1.2) 03/18/23 09:42 Eos # (Auto) 0.0 X10*3/uL (0.0-0.4) 03/18/23 09:42 Baso # (Auto) 0.0 X10*3/uL (0.0-0.2) 03/18/23 09:42 Abs Immat Gran (auto) 0.06 X10*3/uL (0.00-0.03) H 03/18/23 09:42 Absolute Neuts (auto) 6.6 x10*3/uL (2.0-8.3) 03/18/23 09:42 Absolute Nucleated RBC 0.000 X10*3/uL (0.0-0.012) 03/18/23 09:42 Nucleated RBC % (auto) 0.0 /100WBC (0.0-0.2) 03/18/23 09:42 Hold Purple Top SEE NOTE 03/19/23 07:09 PT 17.1 SEC (11.1-13.3) H 03/18/23 09:42 INR 1.4 (0.9-1.1) H 03/18/23 09:42 Sodium 140 mmol/L (135-145) 03/19/23 07:09 Potassium 4.0 mmol/L (3.3-5.1) 03/19/23 07:09 Chloride 104 mmol/L (96-108) 03/19/23 07:09 Carbon Dioxide 27 mmol/L (22-29) 03/19/23 07:09 Anion Gap 13 (12-20) 03/19/23 07:09 BUN 16 mg/dL (9-16) 03/19/23 07:09 Creatinine 1.05 mg/dL (0.5-1.4) 03/19/23 07:09 Estim Creat Clear Calc 93.0 03/19/23 07:09 Estimated GFR > 60 03/19/23 07:09 Random Glucose 159 mg/dL (60-115) H 03/19/23 07:09 Lactic Acid 2.9 mmol/L (0.5-2.0) H* 03/18/23 09:42 Lactic Acid F/U @ 2Hr 1.7 mmol/L (0.5-2.0) 03/18/23 12:28 Calcium 8.9 mg/dL (8.4-10.2) 03/19/23 07:09 Magnesium 1.9 mg/dL (1.6-2.6) 03/18/23 09:42 Total Bilirubin 0.6 mg/dL (0.0-1.0) 03/18/23 09:42 AST 41 U/L (5-37) H 03/18/23 09:42 ALT 23 U/L (0-40) 03/18/23 09:42 Alkaline Phosphatase 107 U/L (39-117) 03/18/23 09:42 Troponin I High Sens 4.5 ng/L (<3.5-35.0) D 03/18/23 09:42 B-Natriuretic Peptide 131 pg/mL (<100) H 03/18/23 09:42 Total Protein 7.1 g/dL (6.5-8.0) 03/18/23 09:42 Albumin 3.3 g/dL (3.5-5.0) L 03/18/23 09:42 Procalcitonin 0.14 ng/mL 03/18/23 09:42 COVID-19 (LALITHA) Negative (Negative) 03/18/23 09:42 COVID-19 Clin Com See Note 03/18/23 09:42 Influenza Type A (PCR) POSITIVE (Negative) A 03/18/23 09:42 Influenza Type B (PCR) NEGATIVE (Negative) 03/18/23 09:42 RSV RNA Qual (PCR) NEGATIVE (Negative) 03/18/23 09:42 SARS-CoV-2 RNA (RT-PCR) NEGATIVE (Negative) 03/18/23 09:42 Impressions Chest X-Ray 03/18/23 09:15 IMPRESSION: No acute intrathoracic disease. Some mild peribronchial thickening is present. Discharge Plan Discharge Anticipated Discharge Date/Time: 03/20/23 10:39 Patient Disposition: Home, Self-Care Discharge Diagnosis: influenza with hypoxia and asthma exacerbation atrial fibrillation with rapid ventricular response Referrals: Isabel Tilley MD [Primary Care Provider] - 1 Week Discharge Medications: New oseltamivir [Tamiflu] 75 mg Capsule 75 mg PO Q12H Qty: 5 0RF prednisone 20 mg tablet 40 mg PO DAILY Qty: 4 0RF Continued Fasenra 30 mg/mL syringe 30 mg subcut Q8W Qty: 1 11RF digoxin 125 mcg (0.125 mg) tablet 125 mcg PO DAILY 90 Days Qty: 90 3RF Eliquis 5 mg tablet 5 mg PO BID 90 Days Qty: 180 3RF metoprolol tartrate 50 mg tablet 50 mg PO BID Qty: 180 3RF furosemide 20 mg tablet 20 mg PO DAILY@1200 Qty: 90 1RF albuterol sulfate [Ventolin HFA] 90 mcg/actuation HFA aerosol inhaler 2 puff inhalation Q4H PRN (Reason: for wheezing) Qty: 36 2RF ferrous sulfate 325 mg (65 mg iron) tablet 325 mg PO DAILY Qty: 90 1RF budesonide-formoterol [Symbicort] 160-4.5 mcg/actuation HFA aerosol inhaler 2 puff PO BID Qty: 10.2 6RF cholecalciferol (vitamin D3) 25 mcg (1,000 unit) Tablet 25 mcg PO DAILY melatonin 10 mg Tablet 10 mg PO BEDTIME PRN (Reason: Insomnia) krill oil 500 mg capsule 500 mg PO DAILY Adult 50 Plus Probiotic 4 billion cell capsule 4,000 mmu cells PO DAILY Rx Instructions: administer with a meal multivitamin Tablet 1 tab PO DAILY (DME) BreatheRite MDI Spacer Spacer See Rx Instructions .ROUTE .MEDSUPPLY Qty: 1 0RF Rx Instructions: As directed balsalazide 750 mg capsule 2,250 mg PO TID Discharge Orders: Discharge Order (Routine); Ordered 03/20/23 Ordered By: Yogesh Neal Diet: Advance to usual diet Activity on Discharge: As tolerated Stand Alone Forms: Patient Portal Discharge page Care Plan Goals: recovery from influenza Health Concerns: influenza with hypoxia and asthma exacerbation atrial fibrillation with rapid ventricular response Plan of Treatment: take oseltamivir 75 mg twice daily for 5 more doses take prednisone 40 mg once daily for 2 more days continue all other home medications Please follow up with your primary care doctor within 1 week. Return to the hospital if you experience recurrent or worsening symptoms. Assessment: See Discharge Summary.
[2023-03-20 11:04] VITALS: BP 101/59; PULSE 75; RESP 20; TEMP 36.5; O2SAT 92
[2023-03-20] MEDS: Furosemide 20 MG TABLET PO (12:09)
--- NOTE | 2023-03-20 14:30 | MHC.CM.PN ---
Pt is medically cleared for D/C home self-care, pts sister to transport him home.
== END 2023-03-20 14:21 | disposition home or self-care (01) | DRG 871 ==
LOC: HO.ED 10:28 → HO.EDOVER 12:12 → HO.IMC 15:04
PROVIDERS: Physician Assistant; Admitting Provider Family Medicine; Emergency Provider Emergency Medicine Emergency Medical Services; PCP Internal Medicine; Visit Provider Family Medicine
DX: A41.89 Other specified sepsis (principal); J96.01 Acute respiratory failure with hypoxia; J45.41 Moderate persistent asthma with (acute) exacerbation; Z68.41 Body mass index [BMI] 40.0-44.9, adult; I50.32 Chronic diastolic (congestive) heart failure; K50.90 Crohn's disease, unspecified, without complications; D84.821 Immunodeficiency due to drugs; J10.1 Influenza due to other identified influenza virus with other respiratory manifestations; I48.0 Paroxysmal atrial fibrillation; E66.01 Morbid (severe) obesity due to excess calories; G47.33 Obstructive sleep apnea (adult) (pediatric); Z71.3 Dietary counseling and surveillance; Z79.01 Long term (current) use of anticoagulants; Z79.620 Long term (current) use of immunosuppressive biologic; Z79.899 Other long term (current) drug therapy
CPT/HCPCS: 0241U; 36415; 71045; 80048; 80053; 83605; 83735; 83880; 84145; 84484; 85025; 85610; 87040; 87635; 93005; 94640; 99285; J0456; J1100; J2920

== ENCOUNTER → 2023-03-18 08:42 | Outpatient (BNV) | payer MEDICARE, SELFPAY | PROVIDERS: Admitting Provider Family Medicine; Emergency Provider Emergency Medicine Emergency Medical Services; PCP Internal Medicine; Visit Provider Internal Medicine Cardiovascular Disease | DX: I48.20 Chronic atrial fibrillation, unspecified (principal) | CPT/HCPCS: 93010 ==

== ENCOUNTER → 2023-03-18 12:08 | Outpatient (BNV) | payer MEDICARE, SELFPAY | PROVIDERS: Admitting Provider Family Medicine; Emergency Provider Emergency Medicine Emergency Medical Services; PCP Internal Medicine; Visit Provider Family Medicine | DX: J96.01 Acute respiratory failure with hypoxia (principal); J45.41 Moderate persistent asthma with (acute) exacerbation; I48.91 Unspecified atrial fibrillation; A41.89 Other specified sepsis; J11.1 Influenza due to unidentified influenza virus with other respiratory manifestations; B97.89 Other viral agents as the cause of diseases classified elsewhere; E66.01 Morbid (severe) obesity due to excess calories | CPT/HCPCS: 99223; 99232; 99239 ==

== ENCOUNTER → 2023-03-26 12:35 | Outpatient (REF) | payer MEDICARE, SELFPAY | LOC: HO.CARD 12:35 | PROVIDERS: PCP Internal Medicine; Visit Provider Internal Medicine | DX: I48.19 Other persistent atrial fibrillation (principal) | CPT/HCPCS: 93242 ==

== ENCOUNTER → 2023-03-26 12:38 | Outpatient (BNV) | payer MEDICARE, SELFPAY | PROVIDERS: PCP Internal Medicine; Visit Provider Internal Medicine Cardiovascular Disease | DX: I48.19 Other persistent atrial fibrillation (principal) | CPT/HCPCS: 93244 ==

== ENCOUNTER 2023-04-07 08:48 | Outpatient (AMB) | payer MEDICARE, SELFPAY ==
[2023-04-07 08:59] VITALS: BP 108/64; PULSE 76; O2SAT 96; BMI 43.3
--- NOTE | 2023-04-07 08:59 | MHC.PC.OV ---
Vital Signs 04/07/23 08:59 Height 5 ft 8 in Weight 285 lb BMI 43.3 BP 108/64 Blood Pressure Location Rt brachial Position Sitting Pulse 76 Pulse Source Pulse Oximeter Pulse Oximetry (%) 96 Oxygen Delivery Method Room Air Intake Visit Reasons: HDF ~ Post hospital discharge FU Intake Note: [place] is here [place] [facility] [place] Allergies ceftriaxone Adverse Reaction (Mild, Verified 04/07/23 10:02) Vomiting Medication List - Last Reconciled 04/07/23 by Isabel Tilley MD albuterol sulfate 90 mcg/actuation (Ventolin HFA) 2 puffs inhalation Q4H PRN apixaban (Eliquis) 5 mg PO BID 90 days balsalazide 2,250 mg PO TID benralizumab (Fasenra) 30 mg subcut Q8W cholecalciferol (vitamin D3) 25 mcg PO DAILY digoxin 125 mcg PO DAILY 90 days ferrous sulfate 325 mg PO DAILY furosemide 20 mg PO DAILY inhalational spacing device (BreatheRite MDI Spacer) As directed krill oil 500 mg PO DAILY lactobacillus combination no.9 (Adult 50 Plus Probiotic) 4,000 mmu cells PO DAILY melatonin 10 mg PO BEDTIME PRN metoprolol tartrate 50 mg PO BID multivitamin 1 tab PO DAILY Symbicort 160-4.5 mcg/actuation (budesonide-formoterol) 2 puffs PO BID NS Tobacco use date assessed: 04/07/23 Fall risk assessment: No Falls in past year Last assessed Fall Risk: 04/07/23 Dental Screening Dental Screen Date: 04/07/23 Did you have a dental visit in the last 12 months?: Yes Did you have a dental problem in the last 6 months where you did not have access to dental care?: No Was dental information given to patient?: Patient has dentist HPI HDF ~ Post hospital discharge FU HPI Details 68-year-old male here today for follow-up after recent hospital admission for acute exacerbation of moderate persistent extrinsic asthma with acute respiratory failure with hypoxia , influenza type A, and vital sepsis admitted 03/18/2023 to 03/20/2023. Chest x-ray on admission showed peribronchial thickening, BMP in the 100, LDH 2.8 and tested positive for flu. He was treated with IV steroids, oxygen, oseltamivir and improved quickly. He was weaned off his oxygen his AFib with RVR which was related to nebulizer treatments given hospital stay resolved with resuming his home metoprolol. He was discharged on Tamiflu and prednisone, which she already finished taking. At present, patient states that his breathing is back to baseline, no fever, no chest pain , or cough. He was noted to have hypochromic anemia with the hemoglobin at 12.7 and hematocrit 41.9, currently on ferrous sulfate supplementation, his lactic acid came down to normal limits prior to discharge rest of his labs are unremarkable. Patient however had a positive Cologuard test results, needs referral to [facility] Medical History (Updated 04/14/23 @ 10:12 by Isabel Tilley MD) Anemia Positive colorectal cancer screening using Cologuard test Cataract Non-pressure chronic ulcer of buttock Erythema intertrigo Moderate persistent allergic asthma Crohn's disease of perianal region with fistula Morbid obesity due to excess calories Gallstones Non-STEMI (non-ST elevated myocardial infarction) Atrial fibrillation, chronic FABIOLA on CPAP Vitamin D deficiency Acquired deformity of toenail Colostomy in place Empyema of left pleural space Current use of [facility] anticoagulation Anal fistula Surgical History History of bowel resection History of appendectomy History of creation of ostomy Family History Father Emphysema lung HTN (hypertension) Pulmonary fibrosis Mother HTN (hypertension) Social History Household Members: [facility] Are you a primary director critical care to a significant other at home: No Do you presently have visiting nurse or other home services: No Alcohol intake: former Patient Tobacco Use Status: Never used Tobacco e-Cigarette/Vaping Use: Never Used Second Hand Smoke Exposure: No Advance Directives Date on File: 06/05/21 service: No Current occupational status: retired Cognitive needs: No Hearing needs: No Vision needs: Yes Questionnaire PHQ-9 Over the last 2 weeks, how often have you been bothered by any of the following problems? 1. Little interest or pleasure in doing things: not at all 2. Feeling down, depressed, or hopeless: not at all 3. Trouble falling or staying asleep, or sleeping too much: not at all 4. Feeling tired or having little energy: not at all 5. Poor appetite or overeating: not at all 6. Feeling bad about yourself - or that you are a failure or have let yourself or your family down: not at all 7. Trouble concentrating on things, such as reading the newspaper or watching television: not at all 8. Moving or speaking so slowly that other people could have noticed. Or the opposite - being so fidgety or restless that you have been moving around a lot more than usual: not at all 9. Thoughts that you would be better off or of hurting yourself in some way: not at all Total score: 0 Depression Screening Interpretation: Negative Depression Screening Done: Yes 21032 - PHQ-9 Billing: Yes Source: Developed by Drs. Arron Summers, Lizabeth Shine, Bradley Cobb and colleagues, with an educational deni from [email or web address]. Thrive Questionnaire Date Thrive assessed: 04/07/23 I am a: Patient What is your living situation today?: I have a steady place to live Within the past 12 months, did the food you bought not last and you didn't have the money to get more?: Never true Within the past 12 months, did you worry whether your food would run out before you got money to buy more?: Never true AUDIT C Alcohol Use Questionnaire (AUDIT-C) 1. How often do you have a drink containing alcohol?: Never 3. How often do you have six or more drinks on one occasion?: Never Total Score: 0 SELIN-7 AMB Questionnaire SELIN-7 Date SELIN - 7 assessed: 04/07/23 Feeling nervous, anxious, or on edge: 0 = Not at all Not being able to stop or control worryin = Not at all Worrying too much about different things: 0 = Not at all Trouble relaxin = Not at all Being so restless that it is hard to sit still: 0 = Not at all Becoming easily annoyed or irritable: 0 = Not at all Feeling afraid as if something awful might happen: 0 = Not at all Total SELIN-7 score (0-4 normal; 5-9 mild; 10-14 moderate; 15-21 severe): 0 Source: Developed by Ranjit Gambinoet [employer], Bradley Cobb and colleagues, with an educational deni from [email or web address]. SELIN-7 Assessment Billing SELIN-7 Assessment Tool: SELIN-7 Assessment 44840 Review of Systems Const Reports as per HPI, Denies daytime sleepiness, Denies fatigue, Denies lethargy, Denies malaise and Denies weight loss Eyes Denies change in vision ENT Denies nasal congestion, Denies post nasal drip, Denies sinus pain and Denies sinus pressure Card Denies chest pain, Denies pedal edema and Denies dyspnea Resp Denies cough, Denies hemoptysis, Denies excessive phlegm production, Denies dyspnea and Denies wheezing GI Denies abdominal pain and Denies heartburn Reports no additional complaints Musc Denies myalgias, Denies arthralgias and Denies joint swelling Skin/Breast Denies rash Neuro Denies seizure-like activity Psych Reports no additional complaints Endo Denies fatigue and Denies heat intolerance Cas/Lymph Denies easy bruising Aller/Immun Denies seasonal rhinorrhea and Denies wheezing Physical exam (Primary Care) Vital Signs: Last Vital Signs Pulse 76 04/07/23 08:59 BP 108/64 04/07/23 08:59 Pulse Ox 96 04/07/23 08:59 Oxygen Delivery Method Room Air 04/07/23 08:59 BMI result Body Mass Index 43.3 Tobacco/Smoking Status: Tobacco use Status Tobacco use date assessed 04/07/23 04/07/23 09:06 Patient Tobacco Use Status Never used Tobacco 04/07/23 09:01 e-Cigarette/Vaping Use Never Used 04/07/23 09:01 PHQ-9: PHQ-9 Score PHQ-9: Total score 0 04/07/23 10:09 Depression Screening Interpretation: Negative Thrive Assessment: Date of Thrive Assessment Date Thrive assessed 04/07/23 04/07/23 09:08 Const General: cooperative, comfortable and no acute distress Nutritional Appearance: obese morbidly obese Orientation/consciousness: patient oriented x3 HENMT Ears: EAC's normal Face and sinus: Yes face symmetric Mouth: Normal oral and palatal mucosa present, oropharynx normal and moist mucous membranes Eyes General: appearance normal, both eyes and all related structures Neck Other: Supple, no lymphadenopathy, thyroid gland nonpalpable Resp Auscultation: clear to auscultation bilaterally Cardio Other: Irregularly irregular rhythm GI Other: Obese, soft, nontender, no mass palpated, colostomy and left side of abdomen draining yellow brown stool Dry crusted lesion on right buttock, with hyper pigmented patch on gluteal crease Auscultation: normal bowel sounds General: Yes no CVA tenderness Back/Spine/Pelvis Back: no CVA tenderness and No back tenderness Skin Other: Dusky red skin thickening on medial aspect of buttocks with hyper pigmented patch on lower buttocks, no active drainage seen, nontender to palpation Neuro General: patient oriented x3, gait normal, tone normal, moves all extremities, Normal light touch and pain sensation, no focal motor deficits and CN's II-XI intact bilaterally Extrem General: Yes full ROM, Yes no joint enlargement, Yes no pedal edema and Yes normal gait Psych Appearance: grossly normal Mental Status: mental status grossly normal Speech and movement: Normal speech and movement present Affect: normal affect Thought process: Normal thought process present Assessment and Plan Assessment & Plan (1) Moderate persistent allergic asthma: Code(s): J45.40 - Moderate persistent asthma, uncomplicated Plan: Followed by Pulmonary, has appointment already scheduled for follow-up end of the month. currently on Ventolin inhaler and Symbicort (2) Positive colorectal cancer screening using Cologuard test: Code(s): R19.5 - Other fecal abnormalities Plan: Gastroenterology consult referral ordered, needs colonoscopy. (3) Atrial fibrillation, chronic: Code(s): I48.20 - Chronic atrial fibrillation, unspecified Plan: Currently on digoxin and metoprolol tartrate 50 mg 1 tablet twice a day in addition to apixaban 5 mg 1 tablet twice a day, followed by cardiology (4) Hx of influenza: Code(s): Z87.09 - Personal history of other diseases of the respiratory system Plan: Status post Tamiflu (5) FABIOLA on CPAP: Code(s): G47.33 - Obstructive sleep apnea (adult) (pediatric); Z99.89 - Dependence on other enabling machines and devices Plan: Compliant with CPAP (6) Non-pressure chronic ulcer of buttock: Comment: [place] [facility] [place] and also sees Dr. Ortega in [place] dermatology Code(s): L98.419 - Non-pressure chronic ulcer of buttock with unspecified severity Plan: Currently sees vascular surgeon, Dr. Urrutia (7) Morbid obesity due to excess calories: Code(s): E66.01 - Morbid (severe) obesity due to excess calories Plan: Discussed need to increase activity and wt reduction. Eat Mediterranean diet, limit foods high in fat, sugar, and calories, eat slowly, pay attention to portion sizes, plan your meals ahead of time, start regular physical activity 150 minutes of moderate intensity exercise or 90 minutes/week of vigorous exercise (8) Crohn's disease of perianal region with fistula: Code(s): K50.113 - Crohn's disease of large intestine with fistula Plan: Followed by GI (9) Colostomy in place: Code(s): Z93.3 - Colostomy status Plan: Followed by GI, Dr. Sorto (10) Current use of anticoagulant therapy: Code(s): Z79.01 - USP (current) use of anticoagulants (11) Anemia: Code(s): D64.9 - Anemia, unspecified Qualifiers: Anemia type: unspecified type Qualified Code(s): D64.9 - Anemia, unspecified Plan: Continue ferrous sulfate supplement, referred to GI for diagnostic colonoscopy Orders: Referrals Gastroenterology Referral R19.5 - Other fecal abnormalities Coding Level of Care Code Est Pt Level 4 (20454) Diagnoses Moderate persistent allergic asthma J45.40 Positive colorectal cancer screening using Cologuard test R19.5 Atrial fibrillation, chronic I48.20 Hx of influenza Z87.09 FABIOLA on CPAP G47.33; Z99.89 Non-pressure chronic ulcer of buttock L98.419 Morbid obesity due to excess calories E66.01 Crohn's disease of perianal region with fistula K50.[address] Z93.3 Current use of anticoagulant therapy Z79.01 Anemia, unspecified type D64.9 Anemia type: unspecified type Additional Codes SELIN-7 Assessment Billing - SELIN-7 Assessment Tool: SELIN-7 Assessment 48284 ([id number])
== END 2023-04-07 10:14 | disposition home or self-care (01) ==
PROVIDERS: PCP Internal Medicine; Visit Provider Internal Medicine
DX: I48.20 Chronic atrial fibrillation, unspecified (principal); L98.419 Non-pressure chronic ulcer of buttock with unspecified severity; E66.01 Morbid (severe) obesity due to excess calories; K50.113 Crohn's disease of large intestine with fistula; Z93.3 Colostomy status; Z68.41 Body mass index [BMI] 40.0-44.9, adult; J45.40 Moderate persistent asthma, uncomplicated; R19.5 Other fecal abnormalities; Z87.09 Personal history of other diseases of the respiratory system; G47.33 Obstructive sleep apnea (adult) (pediatric); Z99.89 Dependence on other enabling machines and devices; Z79.01 Long term (current) use of anticoagulants
CPT/HCPCS: 99214

== ENCOUNTER → 2023-04-09 07:40 | Outpatient (BNVA) | payer MEDICARE, MEDICAID, SELFPAY | PROVIDERS: Visit Provider Internal Medicine ==

== ENCOUNTER 2023-04-20 07:33 | Outpatient (REF) | payer MEDICARE, SELFPAY | END 2023-04-20 07:34 | disposition home or self-care (01) | LOC: HO.MDS 07:33 | PROVIDERS: Visit Provider Internal Medicine Pulmonary Disease | DX: J45.50 Severe persistent asthma, uncomplicated (principal) | CPT/HCPCS: 96372; J0517 ==

== ENCOUNTER 2023-04-21 12:27 | Outpatient (AMB) | payer MEDICARE, SELFPAY ==
--- NOTE | 2023-04-21 12:43 | A.OFFVIS_ITS ---
Intake Vital Signs 04/21/23 12:44 Height 5 ft 8 in Weight 284 lb 6.341 oz BMI 43.2 BP 102/64 Blood Pressure Location Lt brachial Position Sitting Pulse 86 Intake Visit Reasons: 1 yr s/p holter Intake Note: 1 year follow up [employer] [place] Required: No Accompanied by: Self / Same As Patient Allergies ceftriaxone Adverse Reaction (Mild, Verified 04/21/23 12:44) Vomiting Medication List - Last Reconciled 04/21/23 by Dimitri Villarreal MD albuterol sulfate 90 mcg/actuation (Ventolin HFA) 2 puffs inhalation Q4H PRN apixaban (Eliquis) 5 mg PO BID 90 days balsalazide 2,250 mg PO TID benralizumab (Fasenra) 30 mg subcut Q8W cholecalciferol (vitamin D3) 25 mcg PO DAILY digoxin 125 mcg PO DAILY ferrous sulfate 325 mg PO DAILY furosemide 20 mg PO DAILY inhalational spacing device (BreatheRite MDI Spacer) As directed krill oil 500 mg PO DAILY lactobacillus combination no.9 (Adult 50 Plus Probiotic) 4,000 mmu cells PO DAILY melatonin 10 mg PO BEDTIME PRN metoprolol tartrate 50 mg PO BID multivitamin 1 tab PO DAILY Symbicort 160-4.5 mcg/actuation (budesonide-formoterol) 2 puffs PO BID NS HPI HPI Comments History of Present Illness Details Gorge returns for follow-up regarding atrial fibrillation. Former patient of . He has had atrial fibrillation for about 10-15 years. 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 He is now on rate control with beta-blockers and digoxin. Used to be on Coumadin but now on Eliquis. Overall, he feels fine. No cardiac symptoms like palpitations or angina or anything of that nature. Chronic shortness of breath related to asthma. That is also stable recently. 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 Anal fistula Surgical History History of bowel resection History of appendectomy History of creation of ostomy Family History Father Emphysema lung HTN (hypertension) Pulmonary fibrosis Mother HTN (hypertension) Social History [facility]hold Members: [facility] Are you a primary customer care representative to a significant other at home: No Do you presently have visiting nurse or other home services: No Alcohol intake: former Patient Tobacco Use Status: Never used Tobacco e-Cigarette/Vaping Use: Never Used Second Hand Smoke Exposure: No Advance Directives Date on File: 06/05/21 service: No Current occupational status: retired Cognitive needs: No Hearing needs: No Vision needs: Yes Review of Systems Const Denies weakness ENT Denies dizziness Card Denies chest pain, Denies chest pain with activity, Denies syncope, Denies rapid heart rate, Denies pedal edema, Denies edema, Denies leg edema, Denies lightheadedness, Denies palpitations, Denies dyspnea, Denies dyspnea on exertion and Denies orthopnea Resp Denies cough, Denies dyspnea and Denies dyspnea on exertion GI Denies hematochezia and Denies change in stool character Musc Denies abnormal gait, Denies muscle cramps, Denies muscle weakness, Denies numbness, Denies radiating pain into limb and Denies tingling Neuro Denies abnormal gait, Denies dizziness, Denies syncope, Denies numbness, Denies tingling and Denies weakness Endo Denies palpitations Physical Exam Vital Signs: Last Vital Signs Pulse 86 04/21/23 12:44 BP 102/64 04/21/23 12:44 BMI result Body Mass Index 43.2 Const General: comfortable and no acute distress Orientation/consciousness: patient oriented x3 HEENT Other: Unremarkable Head: Yes normal to inspection Neck Neck: Yes normal visual inspection Chest Chest palpation & inspection: normal inspection of the chest Resp Auscultation: clear to auscultation bilaterally Cardio Palpation: normal PMI Heart sounds: S1 normal heart sound present, S2 normal heart sound present, no gallops, no murmurs and no rubs GI Palpation (GI): Soft to palpation Back/Spine/Pelvis Other: unremarkable Skin General skin exam: no rashes or lesions noted Neuro General: patient oriented x3 Extrem General: Yes normal to inspection Psych Mental Status: mental status grossly normal Assessment & Plan Assessment & Plan (1) Persistent atrial fibrillation: Code(s): I48.19 - Other persistent atrial fibrillation Plan: In the most recent Holter, underlying atrial fibrillation with an average rate of 80/Min. Overall, well rate controlled. Continue beta-blockers and digoxin. Check digoxin levels. Due to duration of atrial fibrillation going back more than 10 years, highly unlikely to respond to cardioversion. Hence remain on rate control only. Cardiac testing- Echocardiogram with LVEF of 60-65% and moderately dilated left atrium. Myocardial perfusion imaging study with likely normal perfusion. (2) FABIOLA (obstructive sleep apnea): Code(s): G47.33 - Obstructive sleep apnea (adult) (pediatric) Plan: Positive sleep study. On CPAP. (3) Morbid obesity due to excess calories: Code(s): E66.01 - Morbid (severe) obesity due to excess calories Plan: Morbid obesity this is a longstanding issue. Weight seems lower than what it was a couple of years ago but still quite high. This unfortunately leads to cardiac issues including atrial fibrillation. Plan Total time spent including review of data, counseling, documentation, coordination care-32 minutes. Orders: Orders Digoxin Today I48.19 - Other persistent atrial fibrillation Coding Level of Care Code Est Pt Level 4 (67558) Diagnoses Persistent atrial fibrillation I48.19 FABIOLA (obstructive sleep apnea) G47.33 Morbid obesity due to excess calories E66.01
[2023-04-21 12:44] VITALS: BP 102/64; PULSE 86; BMI 43.2
== END 2023-04-21 13:05 | disposition home or self-care (01) ==
PROVIDERS: PCP Internal Medicine; Visit Provider Internal Medicine
DX: I48.19 Other persistent atrial fibrillation (principal); G47.33 Obstructive sleep apnea (adult) (pediatric); E66.01 Morbid (severe) obesity due to excess calories
CPT/HCPCS: 99214

== ENCOUNTER → 2023-04-21 12:27 | Outpatient (BNVA) | payer MEDICARE, SELFPAY | PROVIDERS: PCP Internal Medicine; Visit Provider Internal Medicine | DX: I48.19 Other persistent atrial fibrillation (principal); G47.33 Obstructive sleep apnea (adult) (pediatric); E66.01 Morbid (severe) obesity due to excess calories; Z68.41 Body mass index [BMI] 40.0-44.9, adult; Z79.899 Other long term (current) drug therapy; Z99.89 Dependence on other enabling machines and devices | CPT/HCPCS: 99212 ==

== ENCOUNTER 2023-07-14 10:11 | Outpatient (REF) | payer MEDICARE, SELFPAY ==
[2023-07-14 14:31] LABS: Digoxin 0.3 ng/mL (0.8-2.0)
== END 2023-07-14 10:12 | disposition home or self-care (01) ==
LOC: HO.HMGCLDS 10:11
PROVIDERS: PCP Internal Medicine; Visit Provider Internal Medicine
DX: I48.19 Other persistent atrial fibrillation (principal); Z79.899 Other long term (current) drug therapy
CPT/HCPCS: 36415; 80162

== ENCOUNTER 2023-10-06 08:18 | Outpatient (AMB) | payer MEDICARE, SELFPAY ==
[2023-10-06 08:23] VITALS: BP 100/64; PULSE 90; O2SAT 96; BMI 43.9
--- NOTE | 2023-10-06 08:23 | AM.OFFVISMDC ---
Intake Vital Signs 10/06/23 08:23 Height 5 ft 8 in Weight 289 lb BMI 43.9 BP 100/64 Blood Pressure Location Lt brachial Position Sitting Pulse 90 Pulse Source Pulse Oximeter Pulse Oximetry (%) 96 Oxygen Delivery Method Room Air Intake Visit Reasons: KIAH G0439 Intake Note: Pt is here today for her SWV: Cologuard 03/13/23 Allergies ceftriaxone Adverse Reaction (Mild, Verified 10/06/23 08:24) Vomiting [facility] Medical History (Updated 04/14/23 @ 10:12 by Isabel Tilley MD) Anemia Positive colorectal cancer screening using Cologuard test Cataract Non-pressure chronic ulcer of buttock Erythema intertrigo Moderate persistent allergic asthma Crohn's disease of perianal region with fistula Morbid obesity due to excess calories Gallstones Non-STEMI (non-ST elevated myocardial infarction) Atrial fibrillation, chronic FABIOLA on CPAP Vitamin D deficiency Acquired deformity of toenail Colostomy in place Empyema of left pleural space Current use of senior living anticoagulation Anal fistula Surgical History History of bowel resection History of appendectomy History of creation of ostomy Family History Father Emphysema lung HTN (hypertension) Pulmonary fibrosis Mother HTN (hypertension) Social History Household Members: Spouse Housing: Condominium Are you a primary transition of care specialist to a significant other at home: No Do you presently have visiting nurse or other home services: No Alcohol intake: former Patient Tobacco Use Status: Never used Tobacco e-Cigarette/Vaping Use: Never Used Second Hand Smoke Exposure: No Advance Directives Date on File: 06/05/21 service: No Current occupational status: retired Cognitive needs: No Hearing needs: No Vision needs: Yes Questionnaire Medicare Wellness Checkup [age] 65-71 What gender do you identify with?: male During the past 4 weeks, how much have you been bothered by emotional problems such as feeling anxious, depressed, irritable, sad or downhearted, and blue?: not at all During the past 4 weeks, has your physical & emotional health limited your social activities with family, friends, neighbors, or groups?: not at all During the past 4 weeks, how much bodily pain have you generally had?: very mild pain During the past 4 weeks, was someone available to help you if you needed & wanted help?: no, not at all During the past 4 weeks, what was the hardest physical activity you could do for at least 2 minutes?: moderate Can you get to places out of walking distance without help? (For eg., can you travel alone on buses, taxis or drive your car?): Yes Can you go shopping for groceries or clothes without someone's help?: Yes Can you prepare your own meals?: Yes Can you do your housework without help?: Yes Because of any health problems, do you need the help of another person with your personal care needs such as eating, bathing, dressing or getting around the house?: No Can you handle your own money without help?: Yes During the past 4 weeks, how would you rate your health in general?: good During the past 4 weeks how have things been going for you?: pretty well Are you having difficulties driving your car?: no Do you always fasten your seat belt when you are in a car?: yes, usually During past 4 weeks, have you been bothered by the following: never: Falling or dizzy when standing up, Sexual problems?, Trouble eating well?, Teeth or denture problems?, Problems using the telephone? and Tiredness or fatigue? Have you fallen 2 or more times in the past year?: No Are you afraid of falling?: No Are you a smoker?: no During the past 4 weeks, how many drinks of wine, beer, or other alcoholic beverages did you have?: no alcohol at all Do you exercise for about 20 minutes 3 or more times a week?: no, I usually do not exercise this much Have you been given information to help with the following?: no: Hazards in your house that might hurt you? and no: Keeping track of your medications? How often do you have trouble taking medicines the way you have been told to take them?: I always take medicine as prescribed How confident are you that you can control & manage most of your health problems?: very confident What is your race?: White PHQ-9 Over the last 2 weeks, how often have you been bothered by any of the following problems? 1. Little interest or pleasure in doing things: not at all 2. Feeling down, depressed, or hopeless: not at all 3. Trouble falling or staying asleep, or sleeping too much: not at all 4. Feeling tired or having little energy: not at all 5. Poor appetite or overeating: not at all 6. Feeling bad about yourself - or that you are a failure or have let yourself or your family down: not at all 7. Trouble concentrating on things, such as reading the newspaper or watching television: not at all 8. Moving or speaking so slowly that other people could have noticed. Or the opposite - being so fidgety or restless that you have been moving around a lot more than usual: not at all 9. Thoughts that you would be better off or of hurting yourself in some way: not at all Total score: 0 Depression Screening Interpretation: Negative Depression Screening Done: Yes 29586 - PHQ-9 Billing: Yes Source: Developed by Drs. Arron Summers, Lizabeth Shine, Bradley Cobb and colleagues, with an educational deni from [employer]. Physical Exam Vital Signs: Last Vital Signs Pulse 90 10/06/23 08:23 BP 100/64 10/06/23 08:23 Pulse Ox 96 10/06/23 08:23 Oxygen Delivery Method Room Air 10/06/23 08:23 BMI result Body Mass Index 43.9 Assessment & Plan Assessment & Plan (1) Current use of anticoagulant therapy: Code(s): Z79.01 - intermission coordinator (current) use of anticoagulants (2) Anemia: Code(s): D64.9 - Anemia, unspecified Qualifiers: Anemia type: unspecified type Qualified Code(s): D64.9 - Anemia, unspecified (3) Atrial fibrillation, chronic: Code(s): I48.20 - Chronic atrial fibrillation, unspecified (4) Morbid obesity due to excess calories: Code(s): E66.01 - Morbid (severe) obesity due to excess calories (5) Crohn's disease of perianal region with fistula: Code(s): K50.113 - Crohn's disease of large intestine with fistula (6) Moderate persistent allergic asthma: Code(s): J45.40 - Moderate persistent asthma, uncomplicated Quality Reporting (2019) Depression/Bipolar (159/160/161/177) PHQ-9: Total score: 0 Coding Diagnoses Current use of anticoagulant therapy Z79.01 Anemia, unspecified type D64.9 Anemia type: unspecified type Atrial fibrillation, chronic I48.20 Morbid obesity due to excess calories E66.01 Crohn's disease of perianal region with fistula K50.113 Moderate persistent allergic asthma J45.40
--- NOTE | 2023-10-06 09:28 | A.OFFPC_ITS ---
Vital Signs 10/06/23 08:23 Height 5 ft 8 in Weight 289 lb BMI 43.9 BP 100/64 Blood Pressure Location Lt brachial Position Sitting Pulse 90 Pulse Source Pulse Oximeter Pulse Oximetry (%) 96 Oxygen Delivery Method Room Air Intake Visit Reasons: Follow-up anemia, elevated fasting glucose Allergies ceftriaxone Adverse Reaction (Mild, Verified 10/06/23 09:45) Vomiting Medication List - Last Reconciled 10/06/23 by Isabel Tilley MD albuterol sulfate 90 mcg/actuation (Ventolin HFA) 2 puffs inhalation Q4H PRN apixaban (Eliquis) 5 mg PO BID balsalazide 2,250 mg PO TID benralizumab (Fasenra) 30 mg subcut Q8W cholecalciferol (vitamin D3) 25 mcg PO DAILY digoxin 125 mcg PO DAILY furosemide 20 mg PO DAILY inhalational spacing device (BreatheRite MDI Spacer) As directed krill oil 500 mg PO DAILY lactobacillus combination no.9 (Adult 50 Plus Probiotic) 4,000 mmu cells PO DAILY melatonin 10 mg PO BEDTIME PRN metoprolol tartrate 50 mg PO BID multivitamin 1 tab PO DAILY Symbicort 160-4.5 mcg/actuation (budesonide-formoterol) 2 puffs PO BID NS Tobacco use date assessed: 04/07/23 Dental Screening Dental Screen Date: 04/07/23 HPI Follow-up anemia, elevated fasting glucose HPI Details 68-year-old male with history of Crohn's disease with colostomy in place, has a non pressure chronic ulcer in buttock, here today for follow-up on his anemia . Currently not taking any iron supplements . Has no abnormal bleeding reported. Has been feeling well with no new complaints at present time. [facility] Medical History (Updated 10/06/23 @ 09:47 by Isabel Tilley MD) Impaired fasting glucose Nocturia Anemia Positive colorectal cancer screening using Cologuard test Cataract Non-pressure chronic ulcer of buttock Erythema intertrigo Moderate persistent allergic asthma Crohn's disease of perianal region with fistula Morbid obesity due to excess calories Gallstones Non-STEMI (non-ST elevated myocardial infarction) Atrial fibrillation, chronic FABIOLA on CPAP Vitamin D deficiency Acquired deformity of toenail Colostomy in place Empyema of left pleural space Current use of [facility] anticoagulation Anal fistula Surgical History History of bowel resection History of appendectomy History of creation of ostomy Family History Father Emphysema lung HTN (hypertension) Pulmonary fibrosis Mother HTN (hypertension) Social History Household Members: Spouse [facility] Are you a primary primary care sales representative to a significant other at home: No Do you presently have visiting nurse or other home services: No Alcohol intake: former Patient Tobacco Use Status: Never used Tobacco e-Cigarette/Vaping Use: Never Used Second Hand Smoke Exposure: No Advance Directives Date on File: 06/05/21 service: No Current occupational status: retired Cognitive needs: No Hearing needs: No Vision needs: Yes Questionnaire PHQ-9 Over the last 2 weeks, how often have you been bothered by any of the following problems? Depression Screening Interpretation: Negative Depression Screening Done: Yes Source: Developed by Drs. Arron Summers, Lizabeth Shine, Bradley Cobb and colleagues, with an educational deni from [employer]. Thrive Questionnaire Date Thrive assessed: 04/07/23 SELIN-7 AMB Questionnaire SELIN-7 Date SELIN - 7 assessed: 04/07/23 Source: Developed by Drs. Arron Summers, Lizabeth Shine, Bradley Cobb and colleagues, with an educational deni from [employer]. Review of Systems Const Denies weakness ENT Denies dizziness Card Denies chest pain, Denies chest pain with activity, Denies syncope, Denies rapid heart rate, Denies pedal edema, Denies edema, Denies leg edema, Denies lightheadedness, Denies palpitations, Denies dyspnea, Denies dyspnea on exertion and Denies orthopnea Resp Denies cough, Denies dyspnea and Denies dyspnea on exertion GI Denies hematochezia and Denies change in stool character Musc Denies abnormal gait, Denies muscle cramps, Denies muscle weakness, Denies numbness, Denies radiating pain into limb and Denies tingling Neuro Denies abnormal gait, Denies dizziness, Denies syncope, Denies numbness, Denies tingling and Denies weakness Endo Denies palpitations Cas/Lymph Reports no additional complaints Physical exam (Primary Care) Vital Signs: Last Vital Signs Pulse 90 10/06/23 08:23 BP 100/64 10/06/23 08:23 Pulse Ox 96 10/06/23 08:23 Oxygen Delivery Method Room Air 10/06/23 08:23 BMI result Body Mass Index 43.9 Tobacco/Smoking Status: Tobacco use Status Tobacco use date assessed 04/07/23 10/06/23 09:46 Patient Tobacco Use Status Never used Tobacco 10/06/23 09:46 e-Cigarette/Vaping Use Never Used 10/06/23 09:46 Depression Screening Interpretation: Negative Thrive Assessment: Date of Thrive Assessment Date Thrive assessed 04/07/23 10/06/23 09:46 Const General: no acute distress Nutritional Appearance: obese morbidly obese Orientation/consciousness: patient oriented x3 HENMT Ears: EAC's normal Face and sinus: Yes face symmetric Mouth: Normal oral and palatal mucosa present, oropharynx normal and moist mucous membranes Eyes General: appearance normal, both eyes and all related structures Neck Other: Supple, no lymphadenopathy, thyroid gland nonpalpable Resp Auscultation: clear to auscultation bilaterally Cardio Other: Irregularly irregular rhythm GI Other: Obese, soft, nontender, no mass palpated, colostomy and left side of abdomen draining yellow brown stool Dry crusted lesion on right buttock, with hyper pigmented patch on gluteal crease Auscultation: normal bowel sounds General: Yes no CVA tenderness Back/Spine/Pelvis Back: no CVA tenderness and No back tenderness Skin Other: Dusky red skin thickening on medial aspect of buttocks with hyper pigmented patch on lower buttocks, no active drainage seen, nontender to palpation Neuro General: patient oriented x3, gait normal, tone normal, moves all extremities, Normal light touch and pain sensation, no focal motor deficits and CN's II-XI intact bilaterally Extrem General: Yes full ROM, Yes no joint enlargement, Yes no pedal edema and Yes normal gait Psych Appearance: grossly normal Mental Status: mental status grossly normal Speech and movement: Normal speech and movement present Affect: normal affect Thought process: Normal thought process present Assessment and Plan Assessment & Plan (1) Current use of anticoagulant therapy: Code(s): Z79.01 - skilled nursing (current) use of anticoagulants Plan: Ordered CBC (2) Anemia: Code(s): D64.9 - Anemia, unspecified Qualifiers: Anemia type: unspecified type Qualified Code(s): D64.9 - Anemia, unspecified Plan: Ordered a repeat CBC, B12 vitamin-D level (3) Atrial fibrillation, chronic: Code(s): I48.20 - Chronic atrial fibrillation, unspecified Plan: Currently on apixaban 5 mg 1 tablet twice a day (4) Crohn's disease of perianal region with fistula: Code(s): K50.113 - Crohn's disease of large intestine with fistula Plan: Ordered CBC, vitamin B12 level and folic acid, basic metabolic panel as well as vitamin-D level. Currently on balsalazide and Fasenra, followed by GI clinic (5) Moderate persistent allergic asthma: Code(s): J45.40 - Moderate persistent asthma, uncomplicated Plan: Continue Symbicort 2 inhalations twice a day, has albuterol inhaler to use as needed for episodes of bronchospasm (6) Nocturia: Code(s): R35.1 - Nocturia Plan: Ordered PSA level Orders: Orders Alanine Aminotransferase 10/06/23 D64.9 - Anemia, unspecified, E66.01 - Morbid (severe) obesity due to excess calories, J45.40 - Moderate persistent asthma, uncomplicated, K50.113 - Crohn's disease of large intestine with fistula, R35.1 - Nocturia, R73.01 - Impaired fasting glucose, Z79.01 - termite helper (current) use of anticoagulants Vitamin B12 and Folate 10/06/23 D64.9 - Anemia, unspecified, E66.01 - Morbid (severe) obesity due to excess calories, J45.40 - Moderate persistent asthma, uncomplicated, K50.113 - Crohn's disease of large intestine with fistula, R35.1 - Nocturia, R73.01 - Impaired fasting glucose, Z79.01 - skilled nursing (current) use of anticoagulants Vitamin D 25-OH Total 10/06/23 D64.9 - Anemia, unspecified, E66.01 - Morbid (severe) obesity due to excess calories, J45.40 - Moderate persistent asthma, uncomplicated, K50.113 - Crohn's disease of large intestine with fistula, R35.1 - Nocturia, R73.01 - Impaired fasting glucose, Z79.01 - termite helper (current) use of anticoagulants Aspartate Amino Transferase 10/06/23 D64.9 - Anemia, unspecified, E66.01 - Morbid (severe) obesity due to excess calories, J45.40 - Moderate persistent asthma, uncomplicated, K50.113 - Crohn's disease of large intestine with fistula, R35.1 - Nocturia, R73.01 - Impaired fasting glucose, Z79.01 - skilled nursing (current) use of anticoagulants Basic Metabolic Panel Fasting 10/06/23 D64.9 - Anemia, unspecified, E66.01 - Morbid (severe) obesity due to excess calories, J45.40 - Moderate persistent asthma, uncomplicated, K50.113 - Crohn's disease of large intestine with fistula, R35.1 - Nocturia, R73.01 - Impaired fasting glucose, Z79.01 - skilled nursing (current) use of anticoagulants Complete Blood Count Auto Diff 10/06/23 D64.9 - Anemia, unspecified, E66.01 - Morbid (severe) obesity due to excess calories, J45.40 - Moderate persistent asthma, uncomplicated, K50.113 - Crohn's disease of large intestine with fistula, R35.1 - Nocturia, R73.01 - Impaired fasting glucose, Z79.01 - skilled nursing (current) use of anticoagulants Lipid Panel 10/06/23 D64.9 - Anemia, unspecified, E66.01 - Morbid (severe) obesity due to excess calories, J45.40 - Moderate persistent asthma, uncomplicated, K50.113 - Crohn's disease of large intestine with fistula, R35.1 - Nocturia, R73.01 - Impaired fasting glucose, Z79.01 - skilled nursing (current) use of anticoagulants PSA,Total (Free>4and<10) 10/06/23 D64.9 - Anemia, unspecified, E66.01 - Morbid (severe) obesity due to excess calories, J45.40 - Moderate persistent asthma, uncomplicated, K50.113 - Crohn's disease of large intestine with fistula, R35.1 - Nocturia, R73.01 - Impaired fasting glucose, Z79.01 - skilled nursing (current) use of anticoagulants Coding Level of Care Code Est Pt Level 4 (95245) Complex EM visit Add On G2211 Diagnoses Current use of anticoagulant therapy Z79.01 Anemia, unspecified type D64.9 Anemia type: unspecified type Atrial fibrillation, chronic I48.20 Crohn's disease of perianal region with fistula K50.113 Moderate persistent allergic asthma J45.40 Nocturia R35.1
== END 2023-10-06 10:57 | disposition home or self-care (01) ==
PROVIDERS: PCP Internal Medicine; Visit Provider Internal Medicine
DX: Z79.01 Long term (current) use of anticoagulants (principal); D64.9 Anemia, unspecified; I48.20 Chronic atrial fibrillation, unspecified; K50.113 Crohn's disease of large intestine with fistula; J45.40 Moderate persistent asthma, uncomplicated; R35.1 Nocturia
CPT/HCPCS: 99214; G2211

== ENCOUNTER 2023-10-20 09:43 | Outpatient (REF) | payer MEDICARE, SELFPAY ==
[2023-10-20 13:14] LABS: MANUAL DIFF FLAG NO
[2023-10-20 13:25] LABS: Basophils Percent Auto 0.1 % (0-2); Hematocrit 41.2 % (42.0-52.0); Hemoglobin 11.9 g/dl (14.0-18.0); Imm Gran Abs Auto 0.05 X10*3/uL (0.00-0.03); Imm Gran Pct Auto 0.6 % (0.0-0.4); Lymphocytes Absolute Auto 1.8 X10*3/uL (1.2-4.9); Lymphocytes Percent Auto 22.5 % (20-40); Mean Corpuscular HGB Conc 28.9 g/dl (31.0-36.0); Mean Corpuscular Hemoglobin 23.2 pg (27.0-33.0); Mean Corpuscular Volume 80.3 fL (80.0-98.0); Mean Platelet Volume 11.2 fL (9.4-12.4); Monocytes Absolute Auto 0.9 X10*3/uL (0.1-1.2); Monocytes Percent Auto 11.1 % (2-11); Neutrophils Absolute Auto 5.2 x10*3/uL (2.0-8.3); Neutrophils Percent Auto 65.7 % (45-73); Platelet Count 313 X10*3/uL (160-400); Red Blood Count 5.13 X10*6/uL (4.60-5.80); White Blood Count 7.9 X10*3/uL (4.8-10.8)
[2023-10-20 13:47] LABS: Alanine Aminotransferase 21 U/L (0-40); Anion Gap 16 (12-20); Aspartate Amino Transferase 33 U/L (5-37); Blood Urea Nitrogen 12 mg/dL (9-16); Calcium 9.3 mg/dL (8.4-10.2); Carbon Dioxide 25 mmol/L (22-29); Chloride 105 mmol/L (96-108); Cholesterol 93 mg/dL (<200); Estimated Glomerular Filt Rate > 60; Glucose Fasting 100 mg/dL (60-99); HDL Cholesterol 32 mg/dL (>40); LDL Cholesterol Calculated 47 mg/dL (<100); Potassium 4.9 mmol/L (3.3-5.1); Sodium 141 mmol/L (135-145); Triglycerides 71 mg/dL (<150)
[2023-10-20 13:52] LABS: PSA,Total (Free>4and<10) 1.07 ng/mL (0.00-4.00)
[2023-10-20 14:03] LABS: Folate 8.6 ng/mL (> or = 4.0); Vitamin B12 439 pg/mL (200-900)
== END 2023-10-20 09:44 | disposition home or self-care (01) ==
LOC: HO.HMGCLDS 09:43
PROVIDERS: PCP Internal Medicine; Visit Provider Internal Medicine
DX: D64.9 Anemia, unspecified (principal); Z79.01 Long term (current) use of anticoagulants; J45.40 Moderate persistent asthma, uncomplicated; K50.113 Crohn's disease of large intestine with fistula; E66.01 Morbid (severe) obesity due to excess calories; R35.1 Nocturia; R73.01 Impaired fasting glucose; Z12.5 Encounter for screening for malignant neoplasm of prostate
CPT/HCPCS: 36415; 80048; 80061; 82306; 82607; 82746; 84153; 84450; 84460; 85025

== ENCOUNTER 2023-11-13 08:19 | Outpatient (AMB) | payer MEDICARE, SELFPAY ==
--- NOTE | 2023-11-13 08:26 | MHC.OFFWIV ---
Intake Vital Signs 11/13/23 08:28 Height 5 ft 8 in Weight 294 lb BMI 44.7 BP 108/70 Blood Pressure Location Lt brachial Position Sitting Pulse 66 Pulse Source Pulse Oximeter Temp 98.4 F Temp Source Oral Pulse Oximetry (%) 98 Oxygen Delivery Method Room Air Intake Visit Reasons: EP Bilateral leg swelling/sore Intake Note: pt c/o bilateral leg swelling and soreness. Started a week ago Patient Tobacco Use Status: Never used Tobacco Allergies ceftriaxone Adverse Reaction (Mild, Verified 11/13/23 08:27) Vomiting Do you need a note to return to daycare/school/sports/work: No HPI HPI Comments History of Present Illness Details 68 y/o male patient who presents to the walk in clinic with c/o Bilateral leg swelling x 1 week. He does have an extensive Cardiac history and follows with Cardiology. Currently taking Eliquis and Furosemide. Denies SOB, CP or wheezing. [facility] Medical History (Updated 10/06/23 @ 09:47 by Isabel Tilley MD) Impaired fasting glucose Nocturia Anemia Positive colorectal cancer screening using Cologuard test Cataract Non-pressure chronic ulcer of buttock Erythema intertrigo Moderate persistent allergic asthma Crohn's disease of perianal region with fistula Morbid obesity due to excess calories Gallstones Non-STEMI (non-ST elevated myocardial infarction) Atrial fibrillation, chronic FABIOLA on CPAP Vitamin D deficiency Acquired deformity of toenail Colostomy in place Empyema of left pleural space Current use of detention anticoagulation Anal fistula Surgical History History of bowel resection History of appendectomy History of creation of ostomy Family History Father Emphysema lung HTN (hypertension) Pulmonary fibrosis Mother HTN (hypertension) Social History Household Members: Spouse Housing: Condominium Are you a primary palliative care specialist to a significant other at home: No Do you presently have visiting nurse or other home services: No Alcohol intake: former Patient Tobacco Use Status: Never used Tobacco e-Cigarette/Vaping Use: Never Used Second Hand Smoke Exposure: No Advance Directives Date on File: 06/05/21 service: No Current occupational status: retired Cognitive needs: No Hearing needs: No Vision needs: Yes Review of Systems Const All systems reviewed & are unremarkable except as noted in HPI and below Physical Exam Vital Signs: Last Vital Signs Temp 98.4 F 11/13/23 08:28 Pulse 66 11/13/23 08:28 BP 108/70 11/13/23 08:28 Pulse Ox 98 11/13/23 08:28 Oxygen Delivery Method Room Air 11/13/23 08:28 BMI result Body Mass Index 44.7 Const Orientation/consciousness: patient oriented x3 Resp Effort & Inspection: normal respiratory effort Auscultation: clear to auscultation bilaterally Cardio Rhythm: abnormal rhythm Heart sounds: S1 normal heart sound present and S2 normal heart sound present Neuro General: patient oriented x3, gait normal and moves all extremities Extrem Other: Purplish skin color lower distal legs, poor circulation. Varicose Veins noticed bilateral legs. Right lower extremity: lower leg Details: erythema and pitting edema Details: 3+ Psych Speech and movement: Normal speech and movement present Assessment & Plan Assessment & Plan (1) Peripheral edema: Code(s): R60.0 - Localized edema Plan: Elevate limbs Wear compression stockings F/U with Cardiology. Coding Level of Care Code Est Pt Level 3 (04072) Diagnoses Peripheral edema R60.0 Time Spent (min) 15
[2023-11-13 08:28] VITALS: BP 108/70; PULSE 66; TEMP 36.9; O2SAT 98; BMI 44.7
== END 2023-11-13 09:16 | disposition home or self-care (01) ==
PROVIDERS: PCP Internal Medicine; Visit Provider Nurse Practitioner Family
DX: R60.0 Localized edema (principal)
CPT/HCPCS: 99213

== ENCOUNTER 2023-12-23 12:48 | Outpatient (AMB) | payer MEDICARE, SELFPAY ==
[2023-12-23 13:00] VITALS: BP 110/66; PULSE 79; BMI 44.4
--- NOTE | 2023-12-23 13:00 | A.OFFVIS_ITS ---
Vital Signs 12/23/23 13:00 Height 5 ft 8 in Weight 291 lb 14.272 oz BMI 44.4 BP 110/66 Blood Pressure Location Lt brachial Position Sitting Pulse 79 Intake Visit Reasons: Follow up- Swelling in legs Rn Intake Required: No Accompanied by: Self / Same As Patient Allergies ceftriaxone Adverse Reaction (Mild, Verified 11/13/23 08:27) Vomiting Medication List - Last Reconciled 12/23/23 by Dimitri Villarreal MD albuterol sulfate 90 mcg/actuation (Ventolin HFA) 2 puffs inhalation Q4H PRN apixaban (Eliquis) 5 mg PO BID balsalazide 2,250 mg PO TID benralizumab (Fasenra) 30 mg subcut Q8W cholecalciferol (vitamin D3) 25 mcg PO DAILY digoxin 125 mcg PO DAILY furosemide 20 mg PO DAILY inhalational spacing device (BreatheRite MDI Spacer) As directed krill oil 500 mg PO DAILY lactobacillus combination no.9 (Adult 50 Plus Probiotic) 4,000 mmu cells PO DAILY melatonin 10 mg PO BEDTIME PRN metoprolol tartrate 50 mg PO BID multivitamin 1 tab PO DAILY Symbicort 160-4.5 mcg/actuation (budesonide-formoterol) 2 puffs PO BID NS HPI Comments Details: Gorge returns for follow-up regarding atrial fibrillation. He has had atrial fibrillation for about 10-15 years. Remains on rate control with beta-blockers and digoxin. Otherwise, recently, he is noticing some swelling in his feet. He feels some stiffness as well. Breathing is just about the same as before. No angina. He has morbid obesity and has obstructive sleep apnea but not using CPAP recently. Unclear if he is getting some right heart failure from that. [facility] Medical History (Updated 12/23/23 @ 13:20 by Dimitri Villarreal MD) Impaired fasting glucose Nocturia Anemia Positive colorectal cancer screening using Cologuard test Cataract Non-pressure chronic ulcer of buttock Erythema intertrigo Moderate persistent allergic asthma Crohn's disease of perianal region with fistula Morbid obesity due to excess calories Gallstones Non-STEMI (non-ST elevated myocardial infarction) Atrial fibrillation, chronic FABIOLA on CPAP Vitamin D deficiency Acquired deformity of toenail Colostomy in place Empyema of left pleural space Current use of custodial anticoagulation Anal fistula Surgical History History of bowel resection History of appendectomy History of creation of ostomy Family History Father Emphysema lung HTN (hypertension) Pulmonary fibrosis Mother HTN (hypertension) Social History Household Members: [facility] Are you a primary acute care physical therapist to a significant other at home: No Do you presently have visiting nurse or other home services: No Alcohol intake: former Patient Tobacco Use Status: Never used Tobacco e-Cigarette/Vaping Use: Never Used Second Hand Smoke Exposure: No Advance Directives Date on File: 06/05/21 service: No Current occupational status: retired Cognitive needs: No Hearing needs: No Vision needs: Yes Review of Systems Const Denies chills, Denies fatigue, Denies fever(s), Denies weight gain and Denies weight loss ENT Denies dizziness Card Denies chest pain, Reports leg edema, Denies lightheadedness, Denies palpitations, Denies dyspnea on exertion, Denies orthopnea and Denies other Resp Denies cough and Denies dyspnea on exertion GI Denies hematochezia and Denies change in stool character Musc Denies abnormal gait, Denies muscle weakness, Denies numbness, Denies radiating pain into limb and Denies tingling Neuro Denies abnormal gait, Denies dizziness, Denies numbness and Denies tingling Endo Denies fatigue and Denies palpitations Physical Exam Vital Signs: Last Vital Signs Pulse 79 12/23/23 13:00 BP 110/66 12/23/23 13:00 BMI result Body Mass Index 44.4 Const General: comfortable and no acute distress Orientation/consciousness: patient oriented x3 HEENT Other: Unremarkable Head: Yes normal to inspection Neck Neck: Yes normal visual inspection Chest Chest palpation & inspection: normal inspection of the chest Resp Auscultation: clear to auscultation bilaterally Cardio Palpation: normal PMI Heart sounds: S1 normal heart sound present, S2 normal heart sound present, no gallops, no murmurs and no rubs GI Palpation (GI): Soft to palpation Back/Spine/Pelvis Other: unremarkable Skin General skin exam: no rashes or lesions noted Neuro General: patient oriented x3 Extrem Other: 1+ leg swelling General: Yes normal to inspection Psych Mental Status: mental status grossly normal Office Procedures EKG Details: EKG with underlying atrial fibrillation at 79/Min. [id number], Complete Assessment & Plan Assessment & Plan (1) Chronic right heart failure: Code(s): I50.812 - Chronic right heart failure Category: Medical Plan: Leg swelling could be related to right heart dysfunction related to obesity and obstructive sleep apnea. Get echocardiogram. Try to increase Lasix to 40 mg daily for few days and then he will let us know. (2) Persistent atrial fibrillation: Code(s): I48.19 - Other persistent atrial fibrillation Category: Medical Plan: In the last Holter, underlying atrial fibrillation with an average rate of 80/Min. Overall, well rate controlled. Continue beta-blockers and digoxin. Continue anticoagulation. (3) FABIOLA (obstructive sleep apnea): Code(s): G47.33 - Obstructive sleep apnea (adult) (pediatric) Category: Medical Plan: Advised to start using CPAP. (4) Morbid obesity due to excess calories: Code(s): E66.01 - Morbid (severe) obesity due to excess calories Category: Medical Plan: Has had this issue for a long time. Strongly advised weight loss again. Orders: Orders CA echo transthoracic complete Today I50.812 - Chronic right heart failure Medications: Changed From furosemide 20 mg PO DAILY 90 tabs 1RF To furosemide 40 mg (2 x 20 mg) PO DAILY 180 tabs 1RF 90 days Coding Level of Care Code Est Pt Level 4 (76919) Diagnoses Chronic right heart failure I50.812 Persistent atrial fibrillation I48.19 FABIOLA (obstructive sleep apnea) G47.33 Morbid obesity due to excess calories E66.01 CPT Codes EKG - CPT: 44500-[id number], Complete ([id number])
== END 2023-12-23 13:25 | disposition home or self-care (01) ==
PROVIDERS: PCP Internal Medicine; Visit Provider Internal Medicine
DX: I50.812 Chronic right heart failure (principal); I48.19 Other persistent atrial fibrillation; G47.33 Obstructive sleep apnea (adult) (pediatric); E66.01 Morbid (severe) obesity due to excess calories
CPT/HCPCS: 93010; 99214

== ENCOUNTER → 2023-12-23 12:48 | Outpatient (BNVA) | payer MEDICARE, SELFPAY | PROVIDERS: PCP Internal Medicine; Visit Provider Internal Medicine | DX: I50.812 Chronic right heart failure (principal); I48.19 Other persistent atrial fibrillation; G47.33 Obstructive sleep apnea (adult) (pediatric); E66.01 Morbid (severe) obesity due to excess calories; Z68.41 Body mass index [BMI] 40.0-44.9, adult | CPT/HCPCS: 93005; 99212 ==

== ENCOUNTER 2024-01-02 16:26 | Inpatient (IN) | payer MEDICARE, SELFPAY ==
[2024-01-02] VITALS (17 sets, daily range): BP systolic 97–142; BP diastolic 49–97; PULSE 91–130; RESP 14–30; TEMP 36.5–36.7; O2SAT 90–97; BMI 41.2
--- NOTE | ~2024-01-02 | XR_ITS ---
EXAMINATION: XR CHEST CLINICAL INFORMATION: Shortness of breath COMPARISON: Chest x-ray March 18, 2023 TECHNIQUE: Frontal view of the chest was obtained. FINDINGS: Mild prominence of the cardiac silhouette. The lungs are hypoinflated. Mild asymmetric elevation the right hemidiaphragm. Similar diffuse coarsening of the interstitial markings. No gross lobar consolidation. No pleural effusion or pneumothorax. XR/XR chest 1V IMPRESSION: Hypoinflation of the lungs with similar diffuse coarsening of the interstitial markings. Electronically signed by: Hang Sanchez MD 01/03/2024 07:11 AM EDT
--- NOTE | 2024-01-02 16:40 | ED_ITS ---
HPI - General Adult General Chief complaint: General Medical Stated complaint: vomiting/throat blocked? nothing goes down Time Seen by Provider: 01/02/24 16:48 Source: patient Limitations: no limitations History of Present Illness ED Provider: Juany Harden PA-C HPI narrative: 68-year-old male presents with esophageal food bolus. Patient states he was at the grocery store, he ate a piece of chicken. Shortly thereafter, patient felt nauseous, and he subsequently vomited. Patient states he has a feeling that something is stuck in his throat, he tried to drink tea at home, he instantaneously reflux the fluid. He tried to take oral medication, he was unable to swallow the pills. Incident happened prior to arrival. Related Data Home Medications ?Medication ?Instructions ?Recorded ?Confirmed balsalazide 750 mg capsule 2,250 mg PO TID 03/02/20 12/23/23 krill oil 500 mg capsule 500 mg PO DAILY 09/11/20 12/23/23 lactobacillus combination no.9 4 4,000 mmu cells PO DAILY 09/11/20 12/23/23 billion cell capsule (Adult 50 Plus Probiotic) multivitamin 1 tab PO DAILY 09/11/20 12/23/23 cholecalciferol (vitamin D3) 25 25 mcg PO DAILY 06/05/21 12/23/23 mcg (1,000 unit) tablet melatonin 10 mg tablet 10 mg PO BEDTIME PRN Insomnia 11/19/22 12/23/23 Previous Rx's ?Medication ?Instructions ?Recorded inhalational spacing device #1 ea 09/11/20 (BreatheRite MDI Spacer) benralizumab 30 mg/mL subcutaneous 30 mg subcut Q8W #1 mL 03/18/22 syringe (Fasenra) Symbicort 160 mcg-4.5 2 puff PO BID #10.2 grams 03/10/23 mcg/actuation HFA aerosol inhaler (budesonide-formoterol) apixaban 5 mg tablet (Eliquis) 5 mg PO BID #180 tabs 07/09/23 metoprolol tartrate 50 mg tablet 50 mg PO BID #180 tabs 07/10/23 digoxin 125 mcg (0.125 mg) tablet 125 mcg PO DAILY #90 tabs 07/16/23 albuterol sulfate 90 mcg/actuation 2 puff inhalation Q4H PRN for 11/02/23 aerosol inhaler (Ventolin HFA) wheezing #36 grams furosemide 20 mg tablet 40 mg (2 x 20 mg) PO DAILY 90 days 12/23/23 #180 tabs pantoprazole 40 mg tablet,delayed 40 mg PO DAILY #60 tabs 01/02/24 release Allergies Allergy/AdvReac Type Severity Reaction Status Date / Time ceftriaxone AdvReac Mild Vomiting Verified 01/02/24 16:45 Review of Systems 2 Review of Systems: Yes all other systems are reviewed and are negative Constitutional: Constitutional: Denies fever(s) Cardiovascular: Cardiovascular: Denies chest pain and Denies dyspnea Respiratory: Respiratory: Denies dyspnea Gastrointestinal: Gastrointestinal: Denies abdominal pain, Reports nausea and Reports vomiting PMF Past Medical History Attestation statement: The following information was validated with the patient. Medical History Impaired fasting glucose Nocturia Anemia Positive colorectal cancer screening using Cologuard test Cataract Non-pressure chronic ulcer of buttock Erythema intertrigo Moderate persistent allergic asthma Crohn's disease of perianal region with fistula Morbid obesity due to excess calories Gallstones Non-STEMI (non-ST elevated myocardial infarction) Atrial fibrillation, chronic FABIOLA on CPAP Vitamin D deficiency Acquired deformity of toenail Colostomy in place Empyema of left pleural space Current use of detention anticoagulation Anal fistula Surgical History History of bowel resection History of appendectomy History of creation of ostomy Family History Family History Father Emphysema lung HTN (hypertension) Pulmonary fibrosis Mother HTN (hypertension) Social History Social History Household Members: Spouse Housing: Condominium Are you a primary lead care manager to a significant other at home: No Do you presently have visiting nurse or other home services: No Alcohol intake: former Patient Tobacco Use Status: Never used Tobacco Smoked in Last 30 Days: No e-Cigarette/Vaping Use: Never Used Second Hand Smoke Exposure: No Use of substances other than those prescribed or required for medical reasons: No Advance Directives: Yes Advance Directives on File: Yes Advance Directives Date on File: 06/05/21 service: No Current occupational status: retired Cognitive needs: No Hearing needs: No Vision needs: Yes Physical Exam ED Vital Signs: Vital Signs - 24 hr 01/02/24 16:39 01/02/24 17:22 01/02/24 17:36 Temperature 98.1 F Pulse Rate 98 99 99 Respiratory Rate 18 14 17 Blood Pressure 110/76 138/74 98/52 L Pulse Oximetry 97 94 93 Oxygen Delivery Method Room Air Room Air Room Air Oxygen Flow Rate 01/02/24 17:51 01/02/24 18:05 01/02/24 18:06 Temperature Pulse Rate 101 H 96 99 Respiratory Rate 24 H 19 Blood Pressure 102/57 L 111/58 L 111/58 L Pulse Oximetry 94 97 Oxygen Delivery Method Room Air Room Air Oxygen Flow Rate 01/02/24 18:36 01/02/24 20:20 01/02/24 20:45 Temperature 98.1 F 97.7 F Pulse Rate 91 91 109 H Respiratory Rate 15 15 24 H Blood Pressure 104/49 L 104/49 L 142/74 H Pulse Oximetry 96 96 92 Oxygen Delivery Method Room Air Room Air Simple Mask Oxygen Flow Rate 7 01/02/24 20:50 01/02/24 20:55 01/02/24 21:00 Temperature Pulse Rate 115 H 124 H 130 H Respiratory Rate 24 H 24 H 20 Blood Pressure 142/67 H 124/97 H 129/83 Pulse Oximetry 93 92 90 L Oxygen Delivery Method Aerosol Mask Aerosol Mask Room Air Oxygen Flow Rate 4 4 01/02/24 21:15 01/02/24 21:27 01/02/24 22:12 Temperature 97.7 F Pulse Rate 108 H 94 101 H Respiratory Rate 26 H 30 H 17 Blood Pressure 114/73 109/58 L Pulse Oximetry 94 93 Oxygen Delivery Method Nasal Cannula Nasal Cannula Oxygen Flow Rate 3 3 01/02/24 22:35 01/02/24 23:17 Temperature Pulse Rate 95 Respiratory Rate 19 27 H Blood Pressure 97/63 Pulse Oximetry 93 Oxygen Delivery Method Room Air Oxygen Flow Rate BMI result Body Mass Index 41.2 Const Other: Alert, overall well in appearance Orientation/consciousness: patient oriented x3 Resp Effort & Inspection: normal respiratory effort Cardio Other: Normal peripheral perfusion Skin Other: Warm dry no rash Neuro General: patient oriented x3, no focal motor deficits and CN's II-XI intact bilaterally Psych Other: Calm cooperative Course Course Course Narrative: RME performed by Holley Dias PA-C. Patient is a 68 year old assigned male at presenting to the emergency department with a possible piece of chicken stuck. Patient states he took a sample of chicken at the grocery store and now he cannot get anything down. Detailed physical exam and review of systems are deferred to the access clinician. Labs ordered. 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 Reevaluation(s) Reevaluation #1: tried to PO challenge immediately regurgitated...will page GI Time: 17:39 Reevaluation #2: paged Dr. Godwin again....Pt vomited after nitro....waiting on next steps Time: 18:28 Reevaluation #3: 657 pm Patient we will be going for endoscopy, he will be discharged from day stay by GI Time: 21:45 Additional Reevaluation(s): We received a call from PACU, the patient will be returning to the emergency department. Was hypoxic after the procedure, there was concerned that he aspirated, the patient was intubated. He was noted to be 87-89% on room air, he is now on 3 L nasal cannula. He received an albuterol updraft prior to returning to the emergency department. He has poor inspiratory effort, I do hear scattered expiratory wheezes, we will order an additional updraft and a portable chest x-ray. I will cover for potential aspiration pneumonia. The patient has sleep apnea, his nighttime CPAP was ordered as well I have independently reviewed the following tests: Chest x-ray: Consultations Consultation #1: paging GIDr. Godwin he recommends dissolving a 0.4 mg nitroglycerin tab and 10 mL of water, have the patient sit on it, wait 15 minutes, then p.o. challenge Time: 17:40 Medications Administered Discontinued Medications Generic Name Dose Route Start Last Admin Trade Name Freq PRN Reason Stop Dose Admin Albuterol Sulfate 2.5 mg 01/02/24 20:50 01/02/24 20:51 Albuterol Sulfate (0.083%) 2.5 Mg/3 Ml Vial.Neb INHALE 01/02/24 20:51 2.5 mg ONCE ONE Administration Albuterol Sulfate 2.5 mg/ 0 mg 01/02/24 22:04 01/02/24 22:11 Albuterol/Ipratropium 3 ml INHALE 01/02/24 22:05 5 dose ONCE ONE Administration Diazepam 5 mg 01/02/24 16:48 01/02/24 17:14 Diazepam 10 Mg/2 Ml Cartridge IVPUSH 01/02/24 16:49 5 mg STAT STA Administration Glucagon 1 mg 01/02/24 16:48 01/02/24 17:17 Glucagon Hcl 1 Mg Vial IVPUSH 01/02/24 16:49 1 mg ONCE ONE Administration Sodium Chloride 1,000 mls @ 999 mls/hr 01/02/24 18:15 01/02/24 19:45 Ns IV 01/02/24 19:15 Infused .Q1H1M VANNESSA Infusion Lorazepam 0.5 mg 01/02/24 18:47 01/02/24 19:26 Lorazepam 2 Mg/Ml Vial IVPUSH 01/02/24 18:48 0.5 mg ONCE ONE Administration Nitroglycerin 0.4 mg 01/02/24 17:58 01/02/24 18:05 Nitroglycerin 0.4 Mg Tab.Subl SUBLINGUAL 01/02/24 17:59 0.4 mg ONCE ONE Administration Ondansetron HCl 4 mg 01/02/24 16:48 01/02/24 17:13 Ondansetron Hcl 4 Mg/2 Ml Vial IVPUSH 01/02/24 16:49 4 mg ONCE ONE Administration Ondansetron HCl 4 mg 01/02/24 17:58 01/02/24 18:07 Ondansetron Hcl 4 Mg/2 Ml Vial IVPUSH 01/02/24 17:59 4 mg ONCE ONE Administration Ondansetron HCl 4 mg 01/02/24 18:15 01/02/24 18:22 Ondansetron Hcl 4 Mg/2 Ml Vial IVPUSH 01/02/24 18:16 4 mg ONCE ONE Administration Medical Decision Making Medical Decision Making MDM Narrative: 68-year-old male presents with esophageal food bolus. Patient states he was at the grocery store, he ate a piece of chicken. Shortly thereafter, patient felt nauseous, and he subsequently vomited. Patient states he has a feeling that something is stuck in his throat, he tried to drink tea at home, he instantaneously reflux the fluid. He tried to take oral medication, he was unable to swallow the pills. Incident happened prior to arrival. No relevant chronic issues History: Per patient I have considered the following differential diagnoses: Esophageal foreign body, esophageal dysmotility, globus sensation esophageal stricture Plan: We will give glucagon , Valium, Zofran. If the patient can not tolerate p.o. intake, we will obtain a CT scan. Lab Data 01/02/24 17:03 01/02/24 17:03 Labs: Lab Results 01/02/24 Range/Units 17:03 WBC 10.6 (4.8-10.8) X10*3/uL RBC 5.59 (4.60-5.80) X10*6/uL Hgb 12.3 L (14.0-18.0) g/dl Hct 42.1 (42.0-52.0) % MCV 75.3 L (80.0-98.0) fL MCH 22.0 L (27.0-33.0) pg MCHC 29.2 L (31.0-36.0) g/dl RDW 18.4 H (11.0-16.0) % Plt Count 296 (160-400) X10*3/uL MPV 10.3 (9.4-12.4) fL Immature Gran % (Auto) 0.4 (0.0-0.4) % Neut % (Auto) 75.3 H (45-73) % Lymph % (Auto) 15.8 L (20-40) % Gates % (Auto) 8.4 (2-11) % Eos % (Auto) 0.0 (0-4) % Baso % (Auto) 0.1 (0-2) % Lymph # (Auto) 1.7 (1.2-4.9) X10*3/uL Gates # (Auto) 0.9 (0.1-1.2) X10*3/uL Eos # (Auto) 0.0 (0.0-0.4) X10*3/uL Baso # (Auto) 0.0 (0.0-0.2) X10*3/uL Abs Immat Gran (auto) 0.04 H (0.00-0.03) X10*3/uL Absolute Neuts (auto) 8.0 (2.0-8.3) x10*3/uL Absolute Nucleated RBC 0.000 (0.0-0.012) X10*3/uL Nucleated RBC % (auto) 0.0 (0.0-0.2) /100WBC Sodium 140 (135-145) mmol/L Potassium 4.2 (3.3-5.1) mmol/L Chloride 107 (96-108) mmol/L Carbon Dioxide 19 L (22-29) mmol/L Anion Gap 18 (12-20) BUN 14 (9-16) mg/dL Creatinine 1.09 (0.5-1.4) mg/dL Estim Creat Clear Calc 90.4 Estimated GFR > 60 Random Glucose 112 (60-115) mg/dL Calcium 9.3 (8.4-10.2) mg/dL Magnesium 2.2 (1.6-2.6) mg/dL Total Bilirubin 0.7 (0.0-1.0) mg/dL AST 39 H (5-37) U/L ALT 22 (0-40) U/L Alkaline Phosphatase 126 H (39-117) U/L Troponin I High Sens < 2.7 (<3.5-35.0) ng/L Total Protein 8.0 (6.5-8.0) g/dL Albumin 3.6 (3.5-5.0) g/dL Discharge Plan Discharge Clinical Impression: Esophageal foreign body, Hypoxia, Aspiration into airway Patient Disposition: Admitted As Inpatient Interventions: ED Discharge Assessment Last Done: 01/02/24 20:20
--- NOTE | 2024-01-02 16:42 | ECG_ITS ---
Test Reason : EPIGSTRIC PAIN Blood Pressure : / mmHG Vent. Rate : 092 BPM Atrial Rate : 000 BPM P-R Int : 000 ms QRS Dur : 086 ms QT Int : 384 ms P-R-T Axes : 000 -13 -02 degrees QTc Int : 474 ms Atrial fibrillation Abnormal ECG When compared with ECG of 18-MAR-2023 08:51, No significant change was found Referred By: Holley Dias Electronically Signed By:JENNIFER KEY
[2024-01-02 17:06] LABS: MANUAL DIFF FLAG NO
[2024-01-02 17:12] LABS: Basophils Percent Auto 0.1 % (0-2); Hematocrit 42.1 % (42.0-52.0); Hemoglobin 12.3 g/dl (14.0-18.0); Imm Gran Abs Auto 0.04 X10*3/uL (0.00-0.03); Imm Gran Pct Auto 0.4 % (0.0-0.4); Lymphocytes Absolute Auto 1.7 X10*3/uL (1.2-4.9); Lymphocytes Percent Auto 15.8 % (20-40); Mean Corpuscular HGB Conc 29.2 g/dl (31.0-36.0); Mean Corpuscular Volume 75.3 fL (80.0-98.0); Mean Platelet Volume 10.3 fL (9.4-12.4); Monocytes Absolute Auto 0.9 X10*3/uL (0.1-1.2); Monocytes Percent Auto 8.4 % (2-11); Neutrophils Percent Auto 75.3 % (45-73); Platelet Count 296 X10*3/uL (160-400); Red Blood Count 5.59 X10*6/uL (4.60-5.80); Red Cell Distribution Width 18.4 % (11.0-16.0); White Blood Count 10.6 X10*3/uL (4.8-10.8)
[2024-01-02] MEDS: ondansetron HCL 4 MG/2 ML VIAL IVPUSH ×3 (17:13→18:22)
[2024-01-02] MEDS: diazePAM 10 MG/2 ML CARTRIDGE 5 MG IVPUSH (17:14)
[2024-01-02] MEDS: glucagon HCL 1 MG VIAL IVPUSH (17:17)
[2024-01-02 17:23] LABS: Alanine Aminotransferase 22 U/L (0-40); Albumin Level 3.6 g/dL (3.5-5.0); Alkaline Phosphatase 126 U/L (39-117); Anion Gap 18 (12-20); Aspartate Amino Transferase 39 U/L (5-37); Bilirubin Total 0.7 mg/dL (0.0-1.0); Blood Urea Nitrogen 14 mg/dL (9-16); Calcium 9.3 mg/dL (8.4-10.2); Carbon Dioxide 19 mmol/L (22-29); Chloride 107 mmol/L (96-108); Creatinine Clr Calc Pharmacy 90.4; Estimated Glomerular Filt Rate > 60; Glucose Random 112 mg/dL (60-115); Magnesium 2.2 mg/dL (1.6-2.6); Potassium 4.2 mmol/L (3.3-5.1); Sodium 140 mmol/L (135-145)
[2024-01-02 17:32] LABS: Troponin-I High Sensitivity < 2.7 ng/L (<3.5-35.0)
[2024-01-02] MEDS: Nitroglycerin 0.4 MG TAB.SUBL SUBLINGUAL (18:05)
[2024-01-02] MEDS: 0.9 % Sodium Chloride 1,000 ML 999 ML IV (18:22)
--- NOTE | 2024-01-02 18:55 | PM.GICN ---
History of Present Illness Data of Consult Service Date: 01/02/24 Primary Care Provider: Isabel Tilley MD HPI Reason for consult: food bolus obstruction 68-year-old male with pAF, chronic HFpEF, Crohn's disease, FABIOLA on CPAP, and mod persistent asthma who I am seeing for esophageal food bolus obstruction. the patient ate some chicken at noon, and it got stuck, He kept regurgitating liquid and has some mild chest discomfort, No SOB, no issues with chewing. No sputum, denies heartburn. He has had this on and off for the last year but normally it passes with time. He is on eliquis, last dose was last night. He sees Dr Sorto for Crohns, and has a stoma. this has been under control per his report. Review of Systems Review of Systems: Constitutional : No Weight loss, No Fever, No Chills ENT/Mouth : No sore throat, No Rhinorrhea Eyes: No Swelling, No Redness Cardiovascular : + Chest Pain, No SOB, No Edema Respiratory : No Cough, No Sputum, No Wheezing Gastrointestinal : see HPI Genitourinary : NO Dysuria, No Urinary Frequency, No Hematuria, No Urgency Musculoskeletal : no joint pain, No Myalgias, No Joint Swelling Skin : No Skin Lesions, No rash Neuro : No Weakness, + Numbness, No Dizziness, No Headache Psych : No Anxiety/Panic, No Depression Heme/Lymph: No Bruising, No Lymphadenopathy Endocrine : No Polyuria, No Polydipsia All other systems reviewed and are negative. [facility] Past Medical History Medical History (Updated 01/02/24 @ 19:53 by Samreen Godwin MD) Impaired fasting glucose Nocturia Anemia Positive colorectal cancer screening using Cologuard test Cataract Non-pressure chronic ulcer of buttock Erythema intertrigo Moderate persistent allergic asthma Crohn's disease of perianal region with fistula Morbid obesity due to excess calories Gallstones Non-STEMI (non-ST elevated myocardial infarction) Atrial fibrillation, chronic FABIOLA on CPAP Vitamin D deficiency Acquired deformity of toenail Colostomy in place Empyema of left pleural space Current use of intermediate frame tender anticoagulation Anal fistula Family History Family History Father Emphysema lung HTN (hypertension) Pulmonary fibrosis Mother HTN (hypertension) Surgical History Surgical History History of bowel resection History of appendectomy History of creation of ostomy Social History Social History Household Members: Spouse Housing: Condominium Are you a primary physician primary care sports medicine to a significant other at home: No Do you presently have visiting nurse or other home services: No Alcohol intake: former Patient Tobacco Use Status: Never used Tobacco Smoked in Last 30 Days: No e-Cigarette/Vaping Use: Never Used Second Hand Smoke Exposure: No Use of substances other than those prescribed or required for medical reasons: No Advance Directives: Yes Advance Directives on File: Yes Advance Directives Date on File: 06/05/21 service: No Current occupational status: retired Cognitive needs: No Hearing needs: No Vision needs: Yes Meds Allergies Allergy/AdvReac Type Severity Reaction Status Date / Time ceftriaxone AdvReac Mild Vomiting Verified 01/02/24 16:45 Active Medications: Current Medications Sodium Chloride (Ns) 1,000 mls @ 999 mls/hr IV .Q1H1M VANNESSA Stop: 01/02/24 19:15 Last Admin: 01/02/24 18:22 Dose: 999 mls/hr Home Medications ?Medication ?Instructions ?Recorded ?Confirmed ?Last Taken ?Type balsalazide 750 mg capsule 2,250 mg PO TID 03/02/20 12/23/23 12/08/22 History krill oil 500 mg capsule 500 mg PO DAILY 09/11/20 12/23/23 11/16/21 History lactobacillus combination no.9 4 4,000 mmu cells PO DAILY 09/11/20 12/23/23 11/16/21 History billion cell capsule (Adult 50 Plus Probiotic) multivitamin 1 tab PO DAILY 09/11/20 12/23/23 11/16/21 History cholecalciferol (vitamin D3) 25 25 mcg PO DAILY 06/05/21 12/23/23 11/16/21 History mcg (1,000 unit) tablet melatonin 10 mg tablet 10 mg PO BEDTIME PRN Insomnia 11/19/22 12/23/23 Unknown History Physical Exam Vital Signs: Vital Signs: Last Vital Signs Temp 98.1 F 01/02/24 16:39 Pulse 91 01/02/24 18:36 Resp 15 01/02/24 18:36 BP 104/49 L 01/02/24 18:36 Pulse Ox 96 01/02/24 18:36 O2 Del Method Room Air 01/02/24 18:36 BMI result Body Mass Index 41.2 EXAM: GENERAL: The patient is obese, uncomfortable VITAL SIGNS:see workflow HEENT: Nonicteric sclerae, PERRLA, EOMI. Oropharynx clear. Moist mucous membranes. Conjunctivae appear well perfused. No thyroid mass. CHEST: Chest wall is nontender. HEART: Regular rate and rhythm without murmurs. LUNGS: Clear to auscultation bilaterally. ABDOMEN: Soft, positive bowel sounds, nontender, no organomegaly.no flank tenderness--stoma noted, with normal stool SKIN: No rash, no excessive bruising, petechiae, or purpura. NEUROLOGIC: Cranial nerves II-XII intact without motor/sensory deficit. reduced sensation feet Psych: normal affect Results Labs 01/02/24 17:03 01/02/24 17:03 Labs: Short CBC 01/02/24 Range/Units 17:03 WBC 10.6 (4.8-10.8) X10*3/uL Hgb 12.3 L (14.0-18.0) g/dl Hct 42.1 (42.0-52.0) % Plt Count 296 (160-400) X10*3/uL BMP 01/02/24 17:03 Sodium 140 Potassium 4.2 Chloride 107 Carbon Dioxide 19 L BUN 14 Creatinine 1.09 Calcium 9.3 Liver Function 01/02/24 Range/Units 17:03 Total Bilirubin 0.7 (0.0-1.0) mg/dL AST 39 H (5-37) U/L ALT 22 (0-40) U/L Alkaline Phosphatase 126 H (39-117) U/L Albumin 3.6 (3.5-5.0) g/dL Assessment and Plan (1) Food bolus obstruction of intestine: Status: Acute Plan 1/ Esophageal food bolus obstruction, ddx: schatzki ring, stricture, neoplasia PLAN: 1/ EGD for removal of bolus, slightly higher risk due to eliquis, last dose night before Procedures Date of Service Date of Service: 01/02/24
[2024-01-02] MEDS: LORazepam 2 MG/ML VIAL 0.5 MG IVPUSH (19:26)
--- NOTE | 2024-01-02 19:57 | P.CONAN_ITS ---
[facility] Active Problems Active Problems: All Active Problems Food bolus obstruction of intestine (Acute) Chronic right heart failure (Acute) Impaired fasting glucose (Acute) Nocturia (Acute) Anemia (Acute) Positive colorectal cancer screening using Cologuard test (Acute) Environmental allergies (Acute) Current use of anticoagulant therapy (Acute) Non-pressure chronic ulcer of buttock (Acute) Atrial fibrillation, chronic (Acute) Colostomy in place (Acute) Moderate persistent allergic asthma (Acute) Crohn's disease of perianal region with fistula (Acute) Morbid obesity due to excess calories (Acute) FABIOLA on CPAP (Acute) Anal fistula (Acute) Past Medical History Medical History Impaired fasting glucose Nocturia Anemia Positive colorectal cancer screening using Cologuard test Cataract Non-pressure chronic ulcer of buttock Erythema intertrigo Moderate persistent allergic asthma Crohn's disease of perianal region with fistula Morbid obesity due to excess calories Gallstones Non-STEMI (non-ST elevated myocardial infarction) Atrial fibrillation, chronic FABIOLA on CPAP Vitamin D deficiency Acquired deformity of toenail Colostomy in place Empyema of left pleural space 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 Anal fistula Functional capacity: independent ambulation Family History Family History Father Emphysema lung HTN (hypertension) Pulmonary fibrosis Mother HTN (hypertension) Family history of problems with anesthesia: No Surgical History Surgical History History of bowel resection History of appendectomy History of creation of ostomy History of Problems with Anesthesia: No Social History Social History Household Members: Spouse Housing: Condominium Are you a primary customer care coordinator to a significant other at home: No Do you presently have visiting nurse or other home services: No Alcohol intake: former Patient Tobacco Use Status: Never used Tobacco Smoked in Last 30 Days: No e-Cigarette/Vaping Use: Never Used Second Hand Smoke Exposure: No Use of substances other than those prescribed or required for medical reasons: No Advance Directives: Yes Advance Directives on File: Yes Advance Directives Date on File: 06/05/21 service: No Current occupational status: retired Cognitive needs: No Hearing needs: No Vision needs: Yes Meds Allergies Allergy/AdvReac Type Severity Reaction Status Date / Time ceftriaxone AdvReac Mild Vomiting Verified 01/02/24 16:45 Home Medications ?Medication ?Instructions ?Recorded ?Confirmed ?Last Taken ?Type balsalazide 750 mg capsule 2,250 mg PO TID 03/02/20 12/23/23 12/08/22 History krill oil 500 mg capsule 500 mg PO DAILY 09/11/20 12/23/23 11/16/21 History lactobacillus combination no.9 4 4,000 mmu cells PO DAILY 09/11/20 12/23/23 11/16/21 History billion cell capsule (Adult 50 Plus Probiotic) multivitamin 1 tab PO DAILY 09/11/20 12/23/23 11/16/21 History cholecalciferol (vitamin D3) 25 25 mcg PO DAILY 06/05/21 12/23/23 11/16/21 History mcg (1,000 unit) tablet melatonin 10 mg tablet 10 mg PO BEDTIME PRN Insomnia 11/19/22 12/23/23 Unknown History Exam Height,Weight and Vital Signs: Height 5 ft 10 in Weight 130.3 kg Last Vital Signs Temp 98.1 F 01/02/24 16:39 Pulse 91 01/02/24 18:36 Resp 15 01/02/24 18:36 BP 104/49 L 01/02/24 18:36 Pulse Ox 96 01/02/24 18:36 O2 Del Method Room Air 01/02/24 18:36 Pertinent Lab Results Pertinent Lab Results: Laboratory Tests 01/02/24 17:03 WBC 10.6 RBC 5.59 Hgb 12.3 L Hct 42.1 MCV 75.3 L MCH 22.0 L MCHC 29.2 L RDW 18.4 H Plt Count 296 MPV 10.3 Immature Gran % (Auto) 0.4 Neut % (Auto) 75.3 H Lymph % (Auto) 15.8 L [place] % (Auto) 8.4 Eos % (Auto) 0.0 Baso % (Auto) 0.1 Lymph # (Auto) 1.7 [place] # (Auto) 0.9 Eos # (Auto) 0.0 Baso # (Auto) 0.0 Abs Immat Gran (auto) 0.04 H Absolute Neuts (auto) 8.0 Absolute Nucleated RBC 0.000 Nucleated RBC % (auto) 0.0 Sodium 140 Potassium 4.2 Chloride 107 Carbon Dioxide 19 L Anion Gap 18 BUN 14 Creatinine 1.09 Estim Creat Clear Calc 90.4 Estimated GFR > 60 Random Glucose 112 Calcium 9.3 Magnesium 2.2 Total Bilirubin 0.7 AST 39 H ALT 22 Alkaline Phosphatase 126 H Troponin I High Sens < 2.7 Total Protein 8.0 Albumin 3.6 Airway Mallampati Class: IV TM Dist: >3cm Neck ROM: Full Heart: irreg. Lungs: BS diminished Assessment and Plan Final Anesthetic Review Family History of Problems with Anesthesia: No History of Problems with Anesthesia: No NPO: Yes ASA Class: III and Emergency Final Preanesthetic Review: Meds/Allgs Chart Reviewed, Consent Obtained/Reviewed and Anes Risks/Benef Reviewed Patient Risk: Intermediate Procedure Risk: Low Anesthetic Plan Anesthetic Plan: GA Disposition: Standard PACU
--- NOTE | 2024-01-02 20:21 | MHC.SHP ---
Pre-Procedural Eval Section A - 24 Hr Update-Section A only Date of Service: 01/02/24 The patient is an INPATIENT: No The patient has been examined within 24 hours of the surgical procedure. The History & Physical has been completed within 30 days and I have reviewed it.: Yes Section B - Complete if H&P > 30 days Chief Complaint: vomiting/throat blocked? nothing goes down Allergies: Allergies Allergy/AdvReac Type Severity Reaction Status Date / Time ceftriaxone AdvReac Mild Vomiting Verified 01/02/24 16:45 Plan I have reviewed the history and physical and performed a pertinent physical examination on my patient. No changes have occurred unless specified. Time Spent With Patient Time: Total time managing care of this patient today ____ minutes.
--- NOTE | 2024-01-02 20:22 | W.PM.OPN ---
Operative Note Operative Note Date of Service: 01/02/24 Narrative: Procedure Description: EGD Indication: food bolus obstruction Anesthesia: MAC FLEXIBLE TRANSORAL UPPER GASTROINTESTINAL ENDOSCOPY UPPER ENDOSCOPY Consent: Indications for the procedure and potential complications of bleeding, perforation, reaction to medications and missed diagnosis were discussed with the patient and informed consent was obtained. Instrument: Olympus GIF H 190 J mid size upper endoscope Monitoring: Vital signs and clinical assessment, continuous EKG monitoring, Pulse oximetry, Carbon Dioxide monitoring and blood pressure monitoring were done throughout the procedure. Procedure: The patient was placed in the left lateral decubitis position and pre-procedure medications were administered and a bite block was placed. The endoscope was inserted into the mouth and advanced under direct vision to the third part of duodenum. A careful inspection was made as the upper endoscope was withdrawn including a retroflexed examination of the proximal stomach; Findings and interventions are described below. Findings: Larynx:normal Esophagus: GE junction at 40 cm, diaphragm hiatus at 42 cm, consistent with 2 cm sliding hiatal hernia. Food bolus was noted and gently pushed down, macerated and inflammed mucosa noted at GEJ Stomach: patchy gastritis . Biopsies were obtained. Grade 2 flap valve on retroflexed examination of the cardia. Duodenum: Normal bulb and descending duodenum, Intervention: food bolus removal from esophagus Impression/Findings: gastritis hiatal hernia erosive esophagitis PLAN: commence PPI chew food thoroughly GERD precautions f/u with his GI Dr Sorto resume waldois tomorrow
[2024-01-02] MEDS: Albuterol Sulfate (0.083%) 2.5 MG/3 ML VIAL.NEB INHALE (20:51)
--- NOTE | 2024-01-02 21:38 | HO.POSTANES ---
Post Anesthesia Evaluation Post Anesthesia Evaluation Date of Service: 01/02/24 Vital Signs: Vital Signs Temp Pulse Resp BP Pulse Ox O2 Del Method O2 Flow Rate 01/02/24 21:27 97.7 F 94 30 H 109/58 L 93 Nasal Cannula 3 01/02/24 21:15 108 H 26 H 114/73 94 Nasal Cannula 3 01/02/24 21:00 130 H 20 129/83 90 L Room Air 01/02/24 20:55 124 H 24 H 124/97 H 92 Aerosol Mask 4 01/02/24 20:50 115 H 24 H 142/67 H 93 Aerosol Mask 4 01/02/24 20:45 97.7 F 109 H 24 H 142/74 H 92 Simple Mask 7 01/02/24 20:20 98.1 F 91 15 104/49 L 96 Room Air 01/02/24 18:36 91 15 104/49 L 96 Room Air 01/02/24 18:06 99 19 111/58 L 97 Room Air 01/02/24 18:05 96 111/58 L 01/02/24 17:51 101 H 24 H 102/57 L 94 Room Air 01/02/24 17:36 99 17 98/52 L 93 Room Air 01/02/24 17:22 99 14 138/74 94 Room Air 01/02/24 16:39 98.1 F 98 18 110/76 97 Room Air Anesthesia: General Endotracheal-GETA Mental Status: Awake Pain Control: Satisfactory Nausea/Vomiting: None Hydration: Adequate Comments: In PACU pt. is table, A/O,tachycardic as before surgery,SaO2 is 93% on 3 L O2 but 89-90% on RA. He got Albuterol treatment in PACU. BS diminished BL at the base. Pt vomited after Propofol and Rocuronium given without ventilation or manipulation of the mouth without visible aspiration. He was sent to ER for evaluation and observation.
[2024-01-02] MEDS: Albuterol Sulfate 2.5 MG, Albuterol/Iprat 2.5/0.5MG 3 ML 3 ML INHALE (22:11)
--- NOTE | 2024-01-02 22:55 | P.HPHOSP_ITS ---
History of Present Illness Date of Service: 01/02/24 Attending physician on admission: William Mcdaniel Chief Complaint: Aspiration Gorge Dave is a 68 years old man with past medical history significant for atrial fibrillation Eliquis, Crohn's disease, FABIOLA on CPAP, HFpEF and asthma presented to the emergency department after he developed swallowing difficulty after eating a piece of chicken today. Right after he developed nausea, vomiting and was regurgitating fluids. He was taken to the endoscopy suite and the food bolus was removed. It seems like the patient aspirated before the procedure and required 4 L of supplemental oxygen after undergoing an endoscopy. On evaluation the patient was wearing CPAP machine and was sleeping soundly. His was at bedside who provided most of the HPI. Patient was easy to arouse and denied any shortness on breath or chest pain. He is currently on room air. Most recent vital signs are normal. Blood workup showed no leukocytosis. Hemoglobin is at baseline. Platelets are normal. There are no significant electrolyte imbalances. LFT remarkable for slight elevation of AST and alk- phos. CXR stat is negative. ECG showed atrial fibrillation with rapid rate of 92 beats per minute. No acute ischemic changes. Treatment given: Glucagon 1 mg IV, Valium 5 mg IV, Zofran 12 mg IV (total), nitroglycerin 0.4 mg sublingual, NS 1 L bolus, lorazepam 0.5 mg IV, Zemuron, Versed, propofol, Bridion and multiple breathing treatment with albuterol/ipratropium Review of Systems 2 Review of Systems: Yes Other (Unobtainable -recently received sedative for endoscopy) [facility] Medical History Impaired fasting glucose Nocturia Anemia Positive colorectal cancer screening using Cologuard test Cataract Non-pressure chronic ulcer of buttock Erythema intertrigo Moderate persistent allergic asthma Crohn's disease of perianal region with fistula Morbid obesity due to excess calories Gallstones Non-STEMI (non-ST elevated myocardial infarction) Atrial fibrillation, chronic FABIOLA on CPAP Vitamin D deficiency Acquired deformity of toenail Colostomy in place Empyema of left pleural space 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 Anal fistula Functional capacity: independent ambulation Family History Father Emphysema lung HTN (hypertension) Pulmonary fibrosis Mother HTN (hypertension) Surgical History History of bowel resection History of appendectomy History of creation of ostomy Social History Household Members: Spouse Housing: [facility] Are you a primary rn home care to a significant other at home: No Do you presently have visiting nurse or other home services: No Alcohol intake: former Patient Tobacco Use Status: Never used Tobacco Smoked in Last 30 Days: No e-Cigarette/Vaping Use: Never Used Second Hand Smoke Exposure: No Use of substances other than those prescribed or required for medical reasons: No Advance Directives: Yes Advance Directives on File: Yes Advance Directives Date on File: 06/05/21 service: No Current occupational status: retired Cognitive needs: No Hearing needs: No Vision needs: Yes Meds Allergies Allergy/AdvReac Type Severity Reaction Status Date / Time ceftriaxone AdvReac Mild Vomiting Verified 01/02/24 16:45 Active Medications: Current Medications Acetaminophen (Acetaminophen 325 Mg Tablet) 975 mg PO Q6H PRN PRN Reason: Pain, Mild (Pain Scale 1-3), fever or headache Naloxone HCl (Naloxone Hcl 0.4 Mg/Ml Vial) 0.04 mg IVPUSH Q5M PRN PRN Reason: Excessive sedation or RR < 8 Sodium Chloride (0.9 % Sodium Chloride Flush 3 Ml Syringe) 3 ml IVFLUSH QSHIFT [facility] Home Medications ?Medication ?Instructions ?Recorded ?Confirmed ?Last Taken ?Type balsalazide 750 mg capsule 2,250 mg PO TID 03/02/20 12/23/23 12/08/22 History krill oil 500 mg capsule 500 mg PO DAILY 09/11/20 12/23/23 11/16/21 History lactobacillus combination no.9 4 4,000 mmu cells PO DAILY 09/11/20 12/23/23 11/16/21 History billion cell capsule (Adult 50 Plus Probiotic) multivitamin 1 tab PO DAILY 09/11/20 12/23/23 11/16/21 History cholecalciferol (vitamin D3) 25 25 mcg PO DAILY 06/05/21 12/23/23 11/16/21 History mcg (1,000 unit) tablet melatonin 10 mg tablet 10 mg PO BEDTIME PRN Insomnia 11/19/22 12/23/23 Unknown History Physical Exam 2 Vital Signs and Narrative: Vital Signs: Last Vital Signs Temp 97.7 F 01/02/24 21:27 Pulse 101 H 01/02/24 22:12 Resp 19 01/02/24 22:35 BP 109/58 L 01/02/24 21:27 Pulse Ox 93 01/02/24 21:27 O2 Del Method Nasal Cannula 01/02/24 21:27 O2 Flow Rate 3 01/02/24 21:27 BMI result Body Mass Index 41.2 Constitutional - Sleeping soundly, no distress. Afebrile. HEENT - Atraumatic head. Heart - RRR, No murmurs. Lungs - Normal lung expansion, Normal respiratory effort, No respiratory distress, CTA bilaterally. Abdomen - NT / ND; +BS; No rebound or guarding Extremities - no calf tenderness bilaterally, no swelling Musculoskeletal - Normal inspection, normal ROM Skin - Warm/Dry Neurological - Sleeping. Results Labs 01/02/24 17:03 01/02/24 17:03 Labs: Laboratory Results - last 24 hr 01/02/24 17:03 MCV 75.3 L MCH 22.0 L MCHC 29.2 L RDW 18.4 H Plt Count 296 MPV 10.3 Immature Gran % (Auto) 0.4 Neut % (Auto) 75.3 H Lymph % (Auto) 15.8 L [place] % (Auto) 8.4 Eos % (Auto) 0.0 Baso % (Auto) 0.1 Lymph # (Auto) 1.7 [place] # (Auto) 0.9 Eos # (Auto) 0.0 Baso # (Auto) 0.0 Abs Immat Gran (auto) 0.04 H Absolute Neuts (auto) 8.0 Absolute Nucleated RBC 0.000 Nucleated RBC % (auto) 0.0 Anion Gap 18 Estim Creat Clear Calc 90.4 Estimated GFR > 60 Random Glucose 112 Calcium 9.3 Magnesium 2.2 Total Bilirubin 0.7 AST 39 H ALT 22 Alkaline Phosphatase 126 H Troponin I High Sens < 2.7 Total Protein 8.0 Albumin 3.6 Assessment and Plan (1) Aspiration into airway: Qualifiers: Encounter type: initial encounter Qualified Code(s): T17.908A - Unspecified foreign body in respiratory tract, part unspecified causing other injury, initial encounter Status: Acute (2) Hypoxia: Status: Acute Plan Gorge Dave is a 68 y/o man admitted with: * Low O2 sats after endoscopic procedure, likely multifactorial: Sedation in the setting underlying obstructive sleep apnea + aspiration. O2 sats are currently normal on room air. Admit to hospitalist service. Continue nocturnal CPAP. Continue to monitor O2 sats closely. Empiric IV antibiotic therapy with Zosyn started for now. To consider switch to Augmentin in the morning. * s/p food bolus removal. * FABIOLA. Nocturnal CPAP. * Chronic atrial fibrillation, currently rate and rhythm controlled. Continue Eliquis, metoprolol and digoxin. * Asthma. Not in acute exacerbation. Continue home inhalers. * Crohn's disease. On balsalazide. * HFpEF. Continue furosemide. * Morbid obesity, class 3. BMI 41.3 kg/m2 DVT prophylaxis: On Eliquis Code status: Full Patient will need hospitalization for at least 2 midnights for hypoxia and possible aspiration with continue monitoring of pulse ox and empiric IV antibiotic therapy. Quality Stroke Does the patient have a stroke diagnosis?: No VTE Prior VTE?: No VTE Risk Level:: Medical - moderate - high VTE Device Contraindication: Treatment Not Indicated VTE Drug Contraindication: N/A - Med Ordered
[2024-01-03 00:18] VITALS: BP 108/61; PULSE 91; RESP 21; O2SAT 94
[2024-01-03] MEDS: Piperacillin Sodium/Tazobactam 3.375 GM in 0.9 % Sodium Chloride 50 ML IV (00:20)
[2024-01-03] MEDS: 0.9 % Sodium Chloride Flush 3 ML SYRINGE IVFLUSH ×2 (00:29→09:47)
--- NOTE | 2024-01-03 00:30 | PC.NURSE ---
Left hand IV removed d/t pain at site when attempting to flush and hard flush. possible infiltrate.
--- NOTE | 2024-01-03 00:46 | PC.NURSE ---
RN to bedside after hearing help being yelled from the patient's room. upon arrival to bedside the pt was found holding onto the CPAP mask and asked for help removing the mask stating I need this off now . RN assisted with mask removal the pt began to cough and dry heave, due to positioning the pt was rolled onto his left side while awaiting assistance with boosting for optimall positioning to secure and ensure there was no aspiration in the event of vomitus. the pt was boosted with ease and sat upright, given and emesis bag. he denies nausea but states his throat is dry adding that he believes the CPAP mask is pushing too much air into his lungs stating that his home set up consists of only a nose piece and is not a mask. Pt was placed on 5lpm via NC as he was noted to be hypoxic on room air seen to be as low as 82%. Positive effects s/p O2 application
[2024-01-03 02:00] VITALS: BP 95/42; PULSE 92; RESP 20; O2SAT 98
[2024-01-03 03:50] VITALS: BP 97/44; PULSE 95; RESP 18; O2SAT 97
[2024-01-03 06:25] VITALS: BP 108/62; PULSE 84; RESP 18; TEMP 36.3; O2SAT 99
[2024-01-03 07:48] VITALS: BP 109/57; PULSE 76; RESP 18; TEMP 36.8; O2SAT 96
--- NOTE | 2024-01-03 08:18 | MHC.CM.PN ---
CM met with Patient at bedside and addressed IMM with him, providing Patient with the original and a copy has been placed on the chart. Patient lives in an apartment with his /HCP/Jennifer and he required no services nor DME MILIEU COORDINATOR. Home/self care is the goal and CM has initiated and will follow for dc planning. PCP is Dr. Isabel Tilley and will transport to home.
--- NOTE | 2024-01-03 09:13 | PHA.MEDREC ---
Addendum entered by Mau Zhang 01/03/24 09:36: Reviewed Original Note: Pharmacy Consult ? Medication Reconciliation Pharmacy has completed the medication reconciliation.
[2024-01-03] MEDS: Digoxin 0.125 MG TABLET PO (09:47)
[2024-01-03] MEDS: Apixaban 5 MG TABLET PO (09:47)
--- NOTE | 2024-01-03 10:06 | PM.DS ---
DS: Providers Provider Date of Service: 01/03/24 Date of admission: 01/02/24 23:34 Date of discharge: 01/03/24 Primary care physician: Isabel Tilley MD Attending physician on discharge: Jhony Benavides Discharging clinician: Nancy Ring DS: Diagnosis Discharge Diagnosis (1) Aspiration into airway: Status: Acute (2) Hypoxia: Status: Acute (3) Esophageal foreign body: Status: Acute (4) Food bolus obstruction of intestine: Status: Acute DS: Summary Hospital Course Hospital Course: From H&P on the day of admission Gorge Dave is a 68 years old man with past medical history significant for atrial fibrillation Eliquis, Crohn's disease, FABIOLA on CPAP, HFpEF and asthma presented to the emergency department after he developed swallowing difficulty after eating a piece of chicken today. Right after he developed nausea, vomiting and was regurgitating fluids. He was taken to the endoscopy suite and the food bolus was removed. It seems like the patient aspirated before the procedure and required 4 L of supplemental oxygen after undergoing an endoscopy. On evaluation the patient was wearing CPAP machine and was sleeping soundly. His was at bedside who provided most of the HPI. Patient was easy to arouse and denied any shortness on breath or chest pain. He is currently on room air. Most recent vital signs are normal. Blood workup showed no leukocytosis. Hemoglobin is at baseline. Platelets are normal. There are no significant electrolyte imbalances. LFT remarkable for slight elevation of AST and alk-phos. CXR stat is negative. ECG showed atrial fibrillation with rapid rate of 92 beats per minute. No acute ischemic changes. Treatment given: Glucagon 1 mg IV, Valium 5 mg IV, Zofran 12 mg IV (total), nitroglycerin 0.4 mg sublingual, NS 1 L bolus, lorazepam 0.5 mg IV, Zemuron, Versed, propofol, Bridion and multiple breathing treatment with albuterol/ipratropium Hospital course: Following endoscopy patient was admitted to the floor overnight for observation and close monitoring of respiratory status. He was able to be weaned off of supplemental oxygen. He was treated empirically with Zosyn for possible aspiration. Chest x-ray showing only chronic changes. Patient currently denies shortness of breath and oxygen saturation high 90s on room air. Passed bedside swallow evaluation and was able to tolerate a full diet. As per GI recommendation patient will be started on PPI due to gastritis on endoscopy. Plan for outpatient follow-up with GI and recommended GERD precautions. Okay to resume all baseline medications. We will be discharged with 5 day course of oral Augmentin for empiric treatment of aspiration. Time Attestation Discharge Coordination Time (in mins): 35 Quality: Safe Use of Opioids Does Pt have an Active Cancer Diagnosis on the Problem List?: No Quality: Stroke Does the patient have a stroke diagnosis?: No Physical Exam Vital Signs: Vital Signs: Last Vital Signs Temp 98.3 F 01/03/24 07:48 Pulse 76 01/03/24 07:48 Resp 18 01/03/24 07:48 BP 109/57 L 01/03/24 07:48 Pulse Ox 96 01/03/24 07:48 O2 Del Method Room Air 01/03/24 07:48 O2 Flow Rate 4.5 01/03/24 03:50 BMI result Body Mass Index 41.2 Const: General: cooperative, comfortable, no acute distress, alert and awake Nutritional Appearance: obese Orientation/consciousness: patient oriented x3 Resp: Effort & Inspection: normal respiratory effort, able to speak in complete sentences, no respiratory distress and no use of accessory muscles Auscultation: clear to auscultation bilaterally Cardio: Rate: regular rate GI: Inspection: No distended Palpation (GI): Soft to palpation and nontender Neuro: General: patient oriented x3, moves all extremities and CN's II-XI intact bilaterally Extrem: General: Yes no pedal edema DS: Data Data Completed and Pending Labs on day of discharge: Laboratory Results - last 24 hr 01/02/24 17:03 WBC 10.6 RBC 5.59 Hgb 12.3 L Hct 42.1 MCV 75.3 L MCH 22.0 L MCHC 29.2 L RDW 18.4 H Plt Count 296 MPV 10.3 Immature Gran % (Auto) 0.4 Neut % (Auto) 75.3 H Lymph % (Auto) 15.8 L Cochran % (Auto) 8.4 Eos % (Auto) 0.0 Baso % (Auto) 0.1 Lymph # (Auto) 1.7 Cochran # (Auto) 0.9 Eos # (Auto) 0.0 Baso # (Auto) 0.0 Abs Immat Gran (auto) 0.04 H Absolute Neuts (auto) 8.0 Absolute Nucleated RBC 0.000 Nucleated RBC % (auto) 0.0 Sodium 140 Potassium 4.2 Chloride 107 Carbon Dioxide 19 L Anion Gap 18 BUN 14 Creatinine 1.09 Estim Creat Clear Calc 90.4 Estimated GFR > 60 Random Glucose 112 Calcium 9.3 Magnesium 2.2 Total Bilirubin 0.7 AST 39 H ALT 22 Alkaline Phosphatase 126 H Troponin I High Sens < 2.7 Total Protein 8.0 Albumin 3.6 Discharge Plan Discharge Anticipated Discharge Date/Time: 01/03/24 10:22 Patient Disposition: Home, Self-Care Discharge Diagnosis: Esophageal food bolus Aspiration Referrals: Isabel Tilley MD [Primary Care Provider] - Discharge Medications: New pantoprazole 40 mg tablet,delayed release (DR/EC) 40 mg PO DAILY Qty: 60 2RF amoxicillin-pot clavulanate 875-125 mg tablet 1 tab PO Q12H Qty: 10 0RF Continued Fasenra 30 mg/mL syringe 30 mg subcut Q8W Qty: 1 11RF Eliquis 5 mg tablet 5 mg PO BID Qty: 180 3RF metoprolol tartrate 50 mg tablet 50 mg PO BID Qty: 180 3RF digoxin 125 mcg (0.125 mg) tablet 125 mcg PO DAILY Qty: 90 3RF albuterol sulfate [Ventolin HFA] 90 mcg/actuation HFA aerosol inhaler 2 puff inhalation Q4H PRN (Reason: for wheezing) Qty: 36 1RF cholecalciferol (vitamin D3) 25 mcg (1,000 unit) Tablet 25 mcg PO DAILY melatonin 10 mg Tablet 10 mg PO BEDTIME PRN (Reason: Insomnia) furosemide 20 mg tablet 40 mg PO DAILY@1400 budesonide-formoterol [Symbicort] 160-4.5 mcg/actuation HFA aerosol inhaler 2 puff PO DAILY@1400 krill oil 500 mg capsule 500 mg PO DAILY Adult 50 Plus Probiotic 4 billion cell capsule 4,000 mmu cells PO DAILY Rx Instructions: administer with a meal multivitamin Tablet 1 tab PO DAILY (DME) BreatheRite MDI Spacer Spacer See Rx Instructions .ROUTE .MEDSUPPLY Qty: 1 0RF Rx Instructions: As directed balsalazide 750 mg capsule 2,250 mg PO TID Discharge Orders: Discharge Order (Routine); Ordered 01/02/24 Ordered By: Samreen Godwin Activity on Discharge: As tolerated Print Language: Upper Sorbian Care Plan Goals: See below Health Concerns: Esophageal food bolus Aspiration into airway Gastritis/esophagitis Plan of Treatment: For possible aspiration recommend to complete 5 day course of empiric antibiotics For gastritis seen on endoscopy, start oral PPI as prescribed, GERD precautions as below, call to schedule follow-up appointment with Dr. Sorto No changes made to baseline medication Assessment: See discharge summary Patient Instructions: Hiatal Hernia (DC), Gastroesophageal Reflux Disease (DC)
--- NOTE | 2024-01-03 10:38 | MHC.CM.PN ---
Patient has been medically cleared for dc to home today, self care.
[2024-01-03 10:43] LABS: MANUAL DIFF FLAG NO
[2024-01-03 10:57] LABS: Basophils Percent Auto 0.1 % (0-2); Hematocrit 36.3 % (42.0-52.0); Hemoglobin 10.3 g/dl (14.0-18.0); Imm Gran Abs Auto 0.07 X10*3/uL (0.00-0.03); Imm Gran Pct Auto 0.7 % (0.0-0.4); Lymphocytes Absolute Auto 1.6 X10*3/uL (1.2-4.9); Lymphocytes Percent Auto 14.9 % (20-40); Mean Corpuscular HGB Conc 28.4 g/dl (31.0-36.0); Mean Corpuscular Hemoglobin 22.4 pg (27.0-33.0); Mean Corpuscular Volume 78.9 fL (80.0-98.0); Mean Platelet Volume 10.6 fL (9.4-12.4); Monocytes Percent Auto 9.6 % (2-11); Neutrophils Percent Auto 74.7 % (45-73); Platelet Count 264 X10*3/uL (160-400); Red Cell Distribution Width 18.2 % (11.0-16.0); White Blood Count 10.7 X10*3/uL (4.8-10.8)
[2024-01-03 11:11] LABS: Anion Gap 12 (12-20); Blood Urea Nitrogen 14 mg/dL (9-16); Calcium 8.7 mg/dL (8.4-10.2); Carbon Dioxide 28 mmol/L (22-29); Chloride 107 mmol/L (96-108); Creatinine Clr Calc Pharmacy 90.4; Estimated Glomerular Filt Rate > 60; Glucose Random 113 mg/dL (60-115); Potassium 3.8 mmol/L (3.3-5.1); Sodium 143 mmol/L (135-145)
[2024-01-03 12:00] VITALS: BP 117/59; PULSE 99; RESP 16; TEMP 36.6; O2SAT 95
[2024-01-03] MEDS: Flu Vacc TS2024-25(6mos up)/PF 0.5 ML SYRINGE IM (12:47)
--- NOTE | 2024-01-04 09:16 | HO.POSTANES ---
Post Anesthesia Evaluation Post Anesthesia Evaluation Date of Service: 01/04/24 Anesthesia: General Mental Status: Awake Pain Control: Satisfactory Nausea/Vomiting: None Hydration: Adequate Anesthesia-Related Issues: No Anes. Related Issues
== END 2024-01-03 13:19 | disposition home or self-care (01) | DRG 394 ==
LOC: HO.ED 20:01 → HO.SSS 20:07 → HO.SSSA 01-03 00:22 → HO.EDOVER 01-03 00:23 → HO.IMC 01-03 02:44
PROVIDERS: Internal Medicine Gastroenterology; Physician Assistant Medical; Admitting Provider Internal Medicine; Emergency Provider Emergency Medicine; PCP Internal Medicine; Visit Provider Physician Assistant Medical
PROC: 0DJ08ZZ Inspection of Upper Intestinal Tract, Via Natural or Artificial Opening Endoscopic (ICD-10-PCS; CPT 43235; principal; 2024-01-02 19:30)
DX: T18.128A Food in esophagus causing other injury, initial encounter (principal); K22.10 Ulcer of esophagus without bleeding; K44.9 Diaphragmatic hernia without obstruction or gangrene; K29.70 Gastritis, unspecified, without bleeding; W44.F3XA Food entering into or through a natural orifice, initial encounter; I48.0 Paroxysmal atrial fibrillation; J45.40 Moderate persistent asthma, uncomplicated; Z79.01 Long term (current) use of anticoagulants; Z79.899 Other long term (current) drug therapy
CPT/HCPCS: 36415; 71045; 80048; 80053; 83735; 84484; 85025; 90656; 93005; 94640; 94660; 99285; J1610; J2003; J2060; J2250; J2405; J2543; J2704; J3360

== ENCOUNTER → 2024-01-02 17:23 | Outpatient (BNV) | payer MEDICARE, SELFPAY | PROVIDERS: Emergency Provider Emergency Medicine; PCP Internal Medicine; Visit Provider Internal Medicine Gastroenterology | DX: K56.699 Other intestinal obstruction unspecified as to partial versus complete obstruction (principal); W44.F3XA Food entering into or through a natural orifice, initial encounter | CPT/HCPCS: 43247; 99232 ==

== ENCOUNTER → 2024-01-02 23:34 | Outpatient (BNV) | payer MEDICARE, SELFPAY | PROVIDERS: Admitting Provider Internal Medicine; Emergency Provider Emergency Medicine; PCP Internal Medicine; Visit Provider Internal Medicine | DX: T17.908A Unspecified foreign body in respiratory tract, part unspecified causing other injury, initial encounter (principal); W44.F3XA Food entering into or through a natural orifice, initial encounter; K56.699 Other intestinal obstruction unspecified as to partial versus complete obstruction | CPT/HCPCS: 99223; 99239 ==

== ENCOUNTER → 2024-01-08 14:52 | Outpatient (REF) | payer MEDICARE, SELFPAY ==
--- NOTE | 2024-01-08 14:55 | CA_ITS ---
Transthoracic Echocardiogram Patient (Last, First, Middle): Gorge Dave M Gender: Male Date of : 1955 Age: 68 Procedure Date: 01/08/2024 Procedure Type: Transthoracic Echocardiogram Location: OP Height: 175. cm Weight: 130.18 kg BSA: 2.41 m2 Heart Rate: 78 bpm BP: 110 / 70 mmHg Ground Operations Supervisor: FRANKIE Foote MD: Dimitri Villarreal MD Carpet Tile Layer: Alex Leahy MD Symptoms: I50.812 - Chronic right heart failure Study Quality: Fair w/Contrast ECG Rhythm: Atrial Fibrillation Conclusions: - 1. Normal LV ejection fraction 55-60% 2. At least mildly dilated left atrium 3. Normal cardiac valvular Dopplers 4. Mildly dilated ascending aorta Findings Procedure Information Contrast agent, definity, is being given per protocol without apparent complications. Left Ventricle Normal left ventricular size, thickness, and systolic function. The visually estimated ejection fraction is between 55-60%. Normal left ventricular filling pressures. Right Ventricle Normal right ventricular cavity size and systolic function. Atria The left atrium is mildly dilated. Interatrial shunt cannot be excluded. The right atrium is likely dilated. Aortic Valve The aortic valve structure and function is likely normal. There is no aortic valve stenosis. There is no aortic valve regurgitation. Mitral Valve Normal mitral valve structure and function. There is mild mitral annular calcification. There is trace mitral valve regurgitation. There is no mitral valve stenosis. Pulmonic Valve The pulmonic valve was not well visualized. Tricuspid Valve Likely normal tricuspid valve structure and function. Tricuspid regurgitation envelope is inadequate for calculation of right ventricular systolic pressure. Normal right atrial pressure. Great Vessels The aorta was not well visualized. The pulmonary artery was not well visualized. There is mild dilatation of the ascending aorta measuring 3.90 cm. Venous The inferior vena cava is normal in size and collapses greater than 50% with inspiration. Pericardium/Pleural The pericardium was not well visualized. Prior Study Comparison No significant change compared to prior study dated: 04/12/2020. Measurements 2D Linear Measurements IVSd: 1.14 0.6-0.9/0.6-1.0 cm LVIDd: 4.83 3.9-5.3/4.2-5.9 cm LVIDd Index: 2.00 2.4-3.2/2.2-3.1 cm/m2 LVIDs: 2.83 2.0-3.6 cm LVPWd: 0.97 0.7-1.1 cm LA Diam: 4.70 2.7-3.8/3.0-4.0 cm LAIDs Index: 1.95 1.5-2.3 cm/m2 LV Mass: 230.44 67-162/88-224 g LV Mass Index: 95.62 43-95/49-115 g/m2 LVOT Diam: 2.20 3.0+(-)1.3 cm 2D Systolic Function EF 4C: 50.40 >55% EF 2C: 65.70 >55% EF BiP: 57.30 >55% Mitral Valve MV Pk E: 0.75 MV Decel Time: 194.00 E'Lateral: 12.90 E'Medial: 9.82 E/E' Med: 7.70 E/E' Lat: 5.80 PHT: 57.00 MVA PHT: 3.86 Decel [place]: 3.89 Aortic Valve AoV Pk Terrence: 1.20 AoV Mn Terrence: 0.85 AoV VTI: 0.21 AoV Pk Grad: 6.00 Aov Mn Grad: 3.00 ADRIAN Cont.VTI: 2.52 LVOT LVOT Pk Terrence: 0.81 LVOT Mn Terrence: 0.55 LVOT VTI: 0.14 LVOT Pk Grad: 3.00 LVOT Mn Grad: 1.00 LVOT Diam: 2.20 LVOT Area: 3.80 Diastolic Function MV Pk E: 0.75 E'Medial: 9.82 E/E' Med: 7.70 E' Laterial: 12.90 E/E' Lat: 5.80 Right Ventricle TAPSE (mm): 19.30 TVS' Terrence: 11.10 Tricuspid Valve TR Pk Terrence: 1.66 TR Pk Grad: 11.00 Great Vessels Aorta Sinus of Valsalva: 3.50 2.0-3.5 cm Ao Asc: 3.90 2.1-3.4 cm Pulmonary Valve PV Pk Terrence: 1.25 Peak PV Grad: 6.00 Updated in Other Vendor System with Status of Final Alex Leahy MD electronically signed on 01/09/2024 12:11:47 PM with status of Final
== END ==
LOC: HO.CARD 14:52
PROVIDERS: PCP Internal Medicine; Visit Provider Internal Medicine
DX: I50.812 Chronic right heart failure (principal)
CPT/HCPCS: 93306; Q9957

== ENCOUNTER → 2024-01-08 14:55 | Outpatient (BNV) | payer MEDICARE, SELFPAY | PROVIDERS: PCP Internal Medicine; Visit Provider Internal Medicine Cardiovascular Disease | DX: I50.812 Chronic right heart failure (principal); I34.81 Nonrheumatic mitral (valve) annulus calcification | CPT/HCPCS: 93306 ==

== ENCOUNTER 2024-02-22 09:26 | Outpatient (AMB) | payer MEDICARE, SELFPAY ==
--- NOTE | 2024-02-22 10:15 | A.OFFVIS_ITS ---
Intake Vital Signs 02/22/24 10:25 Height 5 ft 7 in Weight 290 lb BMI 45.4 BP 102/76 Blood Pressure Location Lt brachial Position Sitting Pulse 90 Pulse Source Pulse Oximeter Pulse Oximetry (%) 98 Oxygen Delivery Method Room Air Intake Visit Reasons: AWV - see comments Intake Note: Pt is here today for his AWV Allergies ceftriaxone Adverse Reaction (Mild, Verified 02/22/24 10:49) Vomiting Medication List - Last Reconciled 02/22/24 by Isabel Tilley MD albuterol sulfate 90 mcg/actuation (Ventolin HFA) 2 puffs inhalation Q4H PRN apixaban (Eliquis) 5 mg PO BID balsalazide 2,250 mg PO TID benralizumab (Fasenra) 30 mg subcut Q8W budesonide-formoterol 160-4.5 mcg/actuation (Symbicort) 2 puffs PO DAILY@1400 cholecalciferol (vitamin D3) 25 mcg PO DAILY digoxin 125 mcg PO DAILY furosemide 40 mg PO DAILY@1400 inhalational spacing device (BreatheRite MDI Spacer) As directed krill oil 500 mg PO DAILY lactobacillus combination no.9 (Adult 50 Plus Probiotic) 4,000 mmu cells PO DAILY melatonin 10 mg PO BEDTIME PRN metoprolol tartrate 50 mg PO BID multivitamin 1 tab PO DAILY HPI AWV - see comments HPI Details SWV 68 year old male, presents forhis [facility], subsequent visit.? He is up-to-date with his cholesterol and fasting blood sugar screening, done 10/20/2023 with normal findings . Last colonoscopy was done done [address] Sorto, had a positive Cologuard test done 03/04/2023 and has concerns about the small opening in his colostomy and potential complications with undergoing another colonoscopy. The patient has a history of Crohn's disease, an anal fistula that necessitated a colostomy, and recent anemia, with a low blood count reported in early December. The patient experiences regular bleeding when cleaning the stoma due to its size and uses a Q-tip for cleaning. He is up-to-date with his prostate cancer screening done 10/20/2023, which came back with normal result. He is up-to-date with his flu shot, COVID booster, Tdap, shingles vaccination and and pneumococcal vaccination. ? Medical / Social History Reviewed? Past Medical History ?Yes . ? [place] of Care / Care Team list updated ?Yes . ? Surgical/Hospitalization History ?Yes . ? Current Medications (including OTC and supplements) ?Yes . ? Family History ?Yes . ? Tobacco Control form ?Yes . ? AUDIT-C (Alcohol use) form ?Yes . ? Illicit drug use in Social History ?Yes . ? Current diagnosis of depression? ?No ? Appropriate PHQ2/PHQ9 completed ?Yes . ? Data entered by ?Bulk Station Operator and reviewed by provider ? Fall Risk ? Fall History? Have you had any falls with injury in the past year? ?No . ? Have you had two or more falls in the past year? ?No . ? Fall Risk Assessment: ?No falls in the past year . ? HRA filled out by the patient, reviewed by Provider and scanned. ?? SWV ? Balance? [place] ?Yes . ? Tandem walk ?has but with some difficulty ? Walk and Turn ?Yes . ? Rise from sit to stand ?Yes . ?Vision? Corrective lens ?Yes ? Vision screen ? Up-to-date,sees Dr Lui ?Hearing? Whisper test ?pass . ?Written Plan?Completed. See Patient Documents.? [facility] Medical History Impaired fasting glucose Nocturia Anemia Positive colorectal cancer screening using Cologuard test Cataract Non-pressure chronic ulcer of buttock Erythema intertrigo Moderate persistent allergic asthma Crohn's disease of perianal region with fistula Morbid obesity due to excess calories Gallstones Non-STEMI (non-ST elevated myocardial infarction) Atrial fibrillation, chronic FABIOLA on CPAP Vitamin D deficiency Acquired deformity of toenail Colostomy in place Empyema of left pleural space Current use of alf anticoagulation Anal fistula Surgical History History of bowel resection History of appendectomy History of creation of ostomy Family History Father Emphysema lung HTN (hypertension) Pulmonary fibrosis Mother HTN (hypertension) Social History Household Members: [facility] Are you a primary pet care attendant to a significant other at home: No Do you presently have visiting nurse or other home services: No Alcohol intake: former Patient Tobacco Use Status: Never used Tobacco e-Cigarette/Vaping Use: Never Used Second Hand Smoke Exposure: No Advance Directives Date on File: 06/05/21 service: No Current occupational status: retired Cognitive needs: No Hearing needs: No Vision needs: Yes Questionnaire Medicare Wellness Checkup What [age] 65-71 What gender do you identify with?: male During the past 4 weeks, how much have you been bothered by emotional problems such as feeling anxious, depressed, irritable, sad or downhearted, and blue?: not at all During the past 4 weeks, has your physical & emotional health limited your social activities with family, friends, neighbors, or groups?: not at all During the past 4 weeks, how much bodily pain have you generally had?: no pain During the past 4 weeks, was someone available to help you if you needed & wanted help?: yes, as much as I wanted During the past 4 weeks, what was the hardest physical activity you could do for at least 2 minutes?: moderate Can you get to places out of walking distance without help? (For eg., can you travel alone on buses, taxis or drive your car?): Yes Can you go shopping for groceries or clothes without someone's help?: Yes Can you prepare your own meals?: Yes Can you do your housework without help?: Yes Because of any health problems, do you need the help of another person with your personal care needs such as eating, bathing, dressing or getting around the ho use?: No Can you handle your own money without help?: Yes During the past 4 weeks, how would you rate your health in general?: good During the past 4 weeks how have things been going for you?: pretty well Are you having difficulties driving your car?: no Do you always fasten your seat belt when you are in a car?: yes, usually During past 4 weeks, have you been bothered by the following: never: Falling or dizzy when standing up, Sexual problems?, Trouble eating well?, Teeth or denture problems?, Problems using the telephone? and Tiredness or fatigue? Have you fallen 2 or more times in the past year?: No Are you afraid of falling?: No Are you a smoker?: no During the past 4 weeks, how many drinks of wine, beer, or other alcoholic beverages did you have?: no alcohol at all Do you exercise for about 20 minutes 3 or more times a week?: no, I usually do not exercise this much Have you been given information to help with the following?: no: Hazards in your house that might hurt you? and no: Keeping track of your medications? How often do you have trouble taking medicines the way you have been told to take them?: I always take medicine as prescribed How confident are you that you can control & manage most of your health problems?: very confident What is your race?: White Mini Mental State Exam (MMSE) Orientation What is the (year) (season) (date) (day) (month)?: year (2023), season (fall), date (02/22/2024), day (thursday) and month (january) Where are we (state) (county) (town or city) (hospital) (floor)?: state ([place]), county ([place]), town or city ([place]) and hospital/clinic ([facility]) Score Score: 9 Activity of Daily Living Bathing - sponge bath, tub bath or shower: receives no assistance (gets in/out by self, if usual bathing means Dressing - getting clothes from closets & drawers, including inner/outer garments & fasteners.: gets clothes & gets completely dressed without help Toileting - going to the 'toilet room' for urine/bowel elimination & cleaning self/arranging clothes: goes to toilet room, cleans self, arranges clothes without help Transfer: moves in & out of bed and chair without help (may use support object) Continence: controls urination/bowel movements completely by self Feeding: feeds self without help Total Score: 0 Information obtained from: patient Using telephone: independent Traveling: independent Shopping: independent Preparing meals: independent Housework: independent Taking medicine: independent Managing money: independent PHQ-9 Over the last 2 weeks, how often have you been bothered by any of the following problems? 1. Little interest or pleasure in doing things: not at all 2. Feeling down, depressed, or hopeless: not at all 3. Trouble falling or staying asleep, or sleeping too much: not at all 4. Feeling tired or having little energy: not at all 5. Poor appetite or overeating: not at all 6. Feeling bad about yourself - or that you are a failure or have let yourself or your family down: not at all 7. Trouble concentrating on things, such as reading the newspaper or watching television: not at all 8. Moving or speaking so slowly that other people could have noticed. Or the opposite - being so fidgety or restless that you have been moving around a lot more than usual: not at all 9. Thoughts that you would be better off or of hurting yourself in some way: not at all Total score: 0 Depression Screening Interpretation: Negative Depression Screening Done: Yes 01974 - PHQ-9 Billing: Yes Source: Developed by Drs. Arron Summers, Lizabeth Shine, Bradley Cobb and colleagues, with an educational deni from [employer]. Physical Exam Vital Signs: Last Vital Signs Pulse 90 02/22/24 10:25 BP 102/76 02/22/24 10:25 Pulse Ox 98 02/22/24 10:25 Oxygen Delivery Method Room Air 02/22/24 10:25 BMI result Body Mass Index 45.4 Assessment & Plan Assessment & Plan (1) Encounter for subsequent annual wellness visit (AWV) in Medicare patient: Code(s): Z00.00 - Encounter for general adult medical examination without abnormal findings Plan: Medical wellness checklist reviewed, discussed and updated with patient. Due to the all his vaccinations. Currently awaiting referral to see GI specialist in [place] for further evaluation regarding positive Cologuard testing which likely is causing his anemia (2) FABIOLA on CPAP: Code(s): G47.33 - Obstructive sleep apnea (adult) (pediatric); Z99.89 - Dependence on other enabling machines and devices Plan: Compliant with CPAP (3) Crohn's disease of perianal region with fistula: Code(s): K50.113 - Crohn's disease of large intestine with fistula Plan: Followed by GI clinic currently on Ventolin inhaler which she uses as needed (4) Moderate persistent allergic asthma: Code(s): J45.40 - Moderate persistent asthma, uncomplicated Plan: Currently has Ventolin inhaler which he uses as needed for episodes of bronchospasm and wheezing and is on Symbicort 2 puffs once a day, currently on Fasenra 30 mg injected subcutaneously every 8 weeks, followed by Pulmonary Clinic (5) Atrial fibrillation, chronic: Code(s): I48.20 - Chronic atrial fibrillation, unspecified Plan: Currently on Eliquis 5 mg 1 tablet twice a day and digoxin 125 mcg daily, metoprolol tartrate 50 mg 1 tablet twice a day followed by cardiology (6) Anal fistula: Comment: sees Dr lopes @ [facility], and Dr Sorto Code(s): K60.3 - Anal fistula Plan: Followed by [facility] and Dr. Lopes at [facility] in [place] (7) Colostomy in place: Code(s): Z93.3 - Colostomy status Plan: Followed by GI (8) Environmental allergies: Code(s): Z91.09 - Other allergy status, other than to drugs and biological substances Plan: Currently on Fasenra (9) Anemia: Code(s): D64.9 - Anemia, unspecified Qualifiers: Anemia type: unspecified type Qualified Code(s): D64.9 - Anemia, unspecified Plan: Has positive Cologuard test, awaiting referral to see GI specialist in [place] further evaluation Quality Reporting (2019) Depression/Bipolar (159/160/161/177) PHQ-9: Total score: 0 Coding Level of Care Code Medicare Subsequent (G0439) Diagnoses Encounter for subsequent annual wellness visit (AWV) in Medicare patient Z00.00 FABIOLA on CPAP G47.33; Z99.89 Crohn's disease of perianal region with fistula K50.113 Moderate persistent allergic asthma J45.40 Atrial fibrillation, chronic I48.20 Anal fistula K60.[address] Z93.3 Environmental allergies Z91.09 Anemia, unspecified type D64.9 Anemia type: unspecified type CPT Codes Advance Care Planning - Advance Care Planning discussion: On file, no changes ([id number]) Advance Care Planning - Time spent: 1-15 minutes, on File ([id number]) Additional Codes PHQ-9 - 42634 - PHQ-9 Billing: Yes ([id number]) Advance Care Planning Advance Care Planning discussion: On file, no changes Date of discussion: 02/22/24 Who was present: patient Forms completed: Health Care Proxy and MOLST Time spent: 1-15 minutes, on File Actual minutes spent: 2
[2024-02-22 10:25] VITALS: BP 102/76; PULSE 90; O2SAT 98; BMI 45.4
== END 2024-02-22 11:25 | disposition home or self-care (01) ==
PROVIDERS: PCP Internal Medicine; Visit Provider Internal Medicine
DX: Z00.00 Encounter for general adult medical examination without abnormal findings (principal); K50.113 Crohn's disease of large intestine with fistula; I48.20 Chronic atrial fibrillation, unspecified; Z93.3 Colostomy status; G47.33 Obstructive sleep apnea (adult) (pediatric); Z99.89 Dependence on other enabling machines and devices; J45.40 Moderate persistent asthma, uncomplicated; K60.30 Anal fistula, unspecified; Z91.09 Other allergy status, other than to drugs and biological substances; D64.9 Anemia, unspecified

== ENCOUNTER → 2024-02-22 09:26 | Outpatient (BNVA) | payer MEDICARE, SELFPAY | PROVIDERS: PCP Internal Medicine; Visit Provider Internal Medicine | DX: Z00.00 Encounter for general adult medical examination without abnormal findings (principal); G47.33 Obstructive sleep apnea (adult) (pediatric); K50.113 Crohn's disease of large intestine with fistula; J45.40 Moderate persistent asthma, uncomplicated; I48.20 Chronic atrial fibrillation, unspecified; K60.30 Anal fistula, unspecified; Z91.09 Other allergy status, other than to drugs and biological substances; Z93.3 Colostomy status; Z99.89 Dependence on other enabling machines and devices | CPT/HCPCS: 96127 ==

== ENCOUNTER 2024-04-21 08:06 | Outpatient (AMB) | payer MEDICARE, SELFPAY ==
--- NOTE | 2024-04-21 08:23 | MHC.OFFVIS ---
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 Accompanied by: Self / Same As Patient Allergies ceftriaxone Adverse Reaction (Mild, Verified 02/22/24 10:49) Vomiting Medication List - Last Reconciled 04/21/24 by Dimitri Villarreal MD albuterol sulfate 90 mcg/actuation (Ventolin HFA) 2 puffs inhalation Q4H PRN apixaban (Eliquis) 5 mg PO BID balsalazide 2,250 mg PO TID benralizumab (Fasenra) 30 mg subcut Q8W budesonide-formoterol 160-4.5 mcg/actuation (Symbicort) 2 puffs PO DAILY@1400 cholecalciferol (vitamin D3) 25 mcg PO DAILY [COq10 PO DAILY] digoxin 125 mcg PO DAILY furosemide 40 mg PO DAILY@1400 inhalational spacing device (BreatheRite MDI Spacer) As directed krill oil 500 mg PO DAILY lactobacillus combination no.9 (Adult 50 Plus Probiotic) 4,000 mmu cells PO DAILY magnesium 250 mg PO DAILY melatonin 10 mg PO BEDTIME PRN metoprolol tartrate 50 mg PO BID multivitamin 1 tab PO DAILY HPI Comments Details: Gorge returns for follow-up regarding atrial fibrillation. He has had atrial fibrillation for about 10-15 years. Remains on rate control with beta-blockers and digoxin. From the cardiac standpoint, he seems to be okay. No clear-cut complaints like angina. No palpitations. Breathing is just about the same as before. Some leg swelling but not profound. 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 use of machine long goods helper anticoagulation Anal fistula Surgical History History of bowel resection History of appendectomy History of creation of ostomy Family History Father Emphysema lung HTN (hypertension) Pulmonary fibrosis Mother HTN (hypertension) Social History Household Members: [facility] Are you a primary primary care nurse practitioner to a significant other at home: No Do you presently have visiting nurse or other home services: No Alcohol intake: former Patient Tobacco Use Status: Never used Tobacco e-Cigarette/Vaping Use: Never Used Second Hand Smoke Exposure: No Advance Directives Date on File: 06/05/21 service: No Current occupational status: retired Cognitive needs: No Hearing needs: No Vision needs: Yes Review of Systems Const Denies chills, Denies fatigue, Denies fever(s), Denies weight gain and Denies weight loss ENT Denies dizziness Card Denies chest pain, Reports leg edema, Denies lightheadedness, Denies palpitations, Reports dyspnea on exertion, Denies orthopnea and Denies other Resp Denies cough and Reports dyspnea on exertion GI Denies hematochezia and Denies change in stool character Musc Denies abnormal gait, Denies muscle weakness, Denies numbness, Denies radiating pain into limb and Denies tingling Neuro Denies abnormal gait, Denies dizziness, Denies numbness and Denies tingling Endo Denies fatigue and Denies palpitations Physical Exam Vital Signs: BMI result Body Mass Index 46.6 Const General: comfortable and no acute distress Orientation/consciousness: patient oriented x3 HEENT Other: Unremarkable Head: Yes normal to inspection Neck Neck: Yes normal visual inspection Chest Chest palpation & inspection: normal inspection of the chest Resp Auscultation: clear to auscultation bilaterally Cardio Palpation: normal PMI Heart sounds: S1 normal heart sound present, S2 normal heart sound present, no gallops, no murmurs and no rubs GI Palpation (GI): Soft to palpation Back/Spine/Pelvis Other: unremarkable Skin General skin exam: no rashes or lesions noted Neuro General: patient oriented x3 Extrem General: Yes normal to inspection Psych Mental Status: mental status grossly normal Assessment & Plan Assessment & Plan (1) Chronic right heart failure: Code(s): I50.812 - Chronic right heart failure Category: Medical Plan: Continue diuretics. (2) Persistent atrial fibrillation: Code(s): I48.19 - Other persistent atrial fibrillation Category: Medical Plan: In the last Holter, underlying atrial fibrillation with an average rate of 80/Min. Overall, well rate controlled. Continue beta-blockers and digoxin. Continue anticoagulation. Repeat labs. (3) FABIOLA (obstructive sleep apnea): Code(s): G47.33 - Obstructive sleep apnea (adult) (pediatric) Category: Medical Plan: CPAP. (4) Morbid obesity due to excess calories: Code(s): E66.01 - Morbid (severe) obesity due to excess calories Category: Medical Plan: Long-term issue not clear if it will change or not. We have discussed this numerous times including today. Orders: Orders Basic Metabolic Panel 3 Months I50.812 - Chronic right heart failure Digoxin 3 Months I50.812 - Chronic right heart failure Coding Level of Care Code Est Pt Level 4 (12858) Diagnoses Chronic right heart failure I50.812 Persistent atrial fibrillation I48.19 FABIOLA (obstructive sleep apnea) G47.33 Morbid obesity due to excess calories E66.01
[2024-04-21 08:24] VITALS: BP 100/50; PULSE 90; BMI 46.6
== END 2024-04-21 08:48 | disposition home or self-care (01) ==
PROVIDERS: PCP Internal Medicine; Visit Provider Internal Medicine
DX: I50.812 Chronic right heart failure (principal); I48.19 Other persistent atrial fibrillation; G47.33 Obstructive sleep apnea (adult) (pediatric); E66.01 Morbid (severe) obesity due to excess calories
CPT/HCPCS: 99214

== ENCOUNTER → 2024-04-21 08:06 | Outpatient (BNVA) | payer MEDICARE, SELFPAY | PROVIDERS: PCP Internal Medicine; Visit Provider Internal Medicine | DX: I50.812 Chronic right heart failure (principal); I48.19 Other persistent atrial fibrillation; G47.33 Obstructive sleep apnea (adult) (pediatric); E66.01 Morbid (severe) obesity due to excess calories; Z68.42 Body mass index [BMI] 45.0-49.9, adult; Z99.89 Dependence on other enabling machines and devices; Z79.899 Other long term (current) drug therapy | CPT/HCPCS: 99212 ==

== ENCOUNTER 2024-07-15 08:34 | Outpatient (REF) | payer MEDICARE, SELFPAY ==
[2024-07-15 12:15] LABS: Influenza A PCR NEGATIVE (Negative); Influenza B PCR NEGATIVE (Negative); Resp Syncy Virus RNA Qual PCR NEGATIVE (Negative); SARS COV2 PCR INHOUSE NEGATIVE (Negative)
== END 2024-07-15 08:35 | disposition home or self-care (01) ==
LOC: HO.LAB 08:34
PROVIDERS: Nurse Practitioner Family; PCP Internal Medicine
DX: J06.9 Acute upper respiratory infection, unspecified (principal)
CPT/HCPCS: 0241U; 94640; 99212

== ENCOUNTER 2024-07-15 08:34 | Outpatient (AMB) | payer MEDICARE, SELFPAY ==
[2024-07-15 08:47] VITALS: BP 86/60; PULSE 88; RESP 17; TEMP 36.7; O2SAT 93; BMI 47.0
--- NOTE | 2024-07-15 08:47 | MHC.OFFWIV ---
Intake Vital Signs 07/15/24 08:47 Height 5 ft 7 in Weight 300 lb BMI 47.0 BP 86/60 L Blood Pressure Location Lt brachial Position Sitting Respiration 17 Pulse 88 Pulse Source Pulse Oximeter Temp 98.1 F Temp Source Oral Pulse Oximetry (%) 93 Intake Visit Reasons: EP-chest congestion, ? cold symptoms, sob Intake Note: Pt is here today c/o chest congestion and SOB Patient Tobacco Use Status: Never used Tobacco Allergies ceftriaxone Adverse Reaction (Mild, Verified 07/15/24 08:55) Vomiting HPI HPI Comments History of Present Illness Details 69 y/o Male patient who presents to the walk in clinic with c/o URI symptoms since Thursday. Pt reports SOB, Chest congestion, wheezing, cough and Chest tightness. H/o Asthma and follows with Pulmonology. [facility] Medical History (Updated 07/15/24 @ 09:40 by Annalisa Burk NP) Asthma with acute exacerbation Acute respiratory disease Impaired fasting glucose Nocturia Anemia Positive colorectal cancer screening using Cologuard test Cataract Non-pressure chronic ulcer of buttock Erythema intertrigo Moderate persistent allergic asthma Crohn's disease of perianal region with fistula Morbid obesity due to excess calories Gallstones Non-STEMI (non-ST elevated myocardial infarction) Atrial fibrillation, chronic FABIOLA on CPAP Vitamin D deficiency Acquired deformity of toenail Colostomy in place Empyema of left pleural space 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 Anal fistula Surgical History History of bowel resection History of appendectomy History of creation of ostomy Family History Father Emphysema lung HTN (hypertension) Pulmonary fibrosis Mother HTN (hypertension) Social History Household Members: Spouse Housing: Condominium Are you a primary career orientation teacher to a significant other at home: No Do you presently have visiting nurse or other home services: No Alcohol intake: former Patient Tobacco Use Status: Never used Tobacco e-Cigarette/Vaping Use: Never Used Second Hand Smoke Exposure: No Advance Directives Date on File: 06/05/21 service: No Current occupational status: retired Cognitive needs: No Hearing needs: No Vision needs: Yes Review of Systems Const All systems reviewed & are unremarkable except as noted in HPI and below Physical Exam Vital Signs: Last Vital Signs Temp 98.1 F 07/15/24 08:47 Pulse 88 07/15/24 08:47 Resp 17 07/15/24 08:47 BP 86/60 L 07/15/24 08:47 Pulse Ox 93 07/15/24 08:47 BMI result Body Mass Index 47.0 Const General: no acute distress Nutritional Appearance: obese Orientation/consciousness: patient oriented x3 Resp Effort & Inspection: audible wheezes, Actively coughing, labored and no stridor Auscultation: no crackles, no rales, rhonchi and wheezes Cardio Rhythm: abnormal rhythm irregularly irregular Heart sounds: S1 normal heart sound present and S2 normal heart sound present Neuro General: patient oriented x3 Office Procedures Nebulizer Treatment Nebulizer Treatment [id number]/[id number] RX initial, or Nebulizer Subsequent Treatment Office Meds ipratropium 0.5 mg-albuterol 3 mg (2.5 mg base)/3 mL nebulization soln Performing Provider: Annalisa Burk NP Performing Location: [facility] Administered by: Annalisa Burk NP on 07/15/24 09:30 Dose Route Admin Location Dispensed Lot Number Expiration Date [facility] Story Teller 3 mL inhalation 3 mL Assessment & Plan Assessment & Plan (1) Acute respiratory disease: Code(s): J06.9 - Acute upper respiratory infection, unspecified Plan: Ordered SARs Ordered Doxy for 7 days Ordered Prednisone for 5 days Ordered Neb Tx in Office. (2) Asthma with acute exacerbation: Code(s): J45.901 - Unspecified asthma with (acute) exacerbation Qualifiers: Asthma severity: moderate Asthma persistence: persistent Qualified Code(s): J45.41 - Moderate persistent asthma with (acute) exacerbation Plan: Ordered SARs Ordered Doxy for 7 days Ordered Prednisone for 5 days Ordered Neb Tx in Office. Lungs CTA Orders: Orders SARS-CoV2/FLU/RSV Today J06.9 - Acute upper respiratory infection, unspecified AMB Nebulizer Treatment Today J45.901 - Unspecified asthma with (acute) exacerbation Medications: New prednisone 50 mg PO DAILY 5 days 5 tabs 0RF J45.901 - Unspecified asthma with (acute) exacerbation doxycycline hyclate 100 mg PO BID 7 days 14 tabs 0RF J45.901 - Unspecified asthma with (acute) exacerbation benzonatate 100 mg PO BID 60 caps 0RF cough J06.9 - Acute upper respiratory infection, unspecified, J45.901 - Unspecified asthma with (acute) exacerbation Coding Level of Care Code Est Pt Level 4 (25621) Diagnoses Acute respiratory disease J06.9 Moderate persistent asthma with acute exacerbation J45.41 Asthma severity: moderate Asthma persistence: persistent CPT Codes Nebulizer Treatment - Nebulizer Treatment, initial or subsequent: [id number]/MDI RX initial, or Nebulizer Subsequent Treatment ([id number]) Time Spent (min) 20
== END 2024-07-15 09:47 | disposition home or self-care (01) ==
PROVIDERS: PCP Internal Medicine; Visit Provider Nurse Practitioner Family
DX: J06.9 Acute upper respiratory infection, unspecified (principal); J45.41 Moderate persistent asthma with (acute) exacerbation; J45.901 Unspecified asthma with (acute) exacerbation

== ENCOUNTER 2024-08-26 10:11 | Outpatient (REF) | payer MEDICARE, SELFPAY ==
[2024-08-26 13:39] LABS: MANUAL DIFF FLAG NO
[2024-08-26 13:51] LABS: Basophils Percent Auto 0.1 % (0-2); Hemoglobin 9.2 g/dl (14.0-18.0); Imm Gran Abs Auto 0.04 X10*3/uL (0.00-0.03); Imm Gran Pct Auto 0.5 % (0.0-0.4); Lymphocytes Absolute Auto 1.9 X10*3/uL (1.2-4.9); Lymphocytes Percent Auto 22.1 % (20-40); Mean Corpuscular HGB Conc 26.3 g/dl (31.0-36.0); Mean Corpuscular Hemoglobin 18.5 pg (27.0-33.0); Mean Corpuscular Volume 70.6 fL (80.0-98.0); Mean Platelet Volume 10.3 fL (9.4-12.4); Monocytes Absolute Auto 1.2 X10*3/uL (0.1-1.2); Monocytes Percent Auto 13.4 % (2-11); Neutrophils Absolute Auto 5.5 x10*3/uL (2.0-8.3); Neutrophils Percent Auto 63.9 % (45-73); Platelet Count 258 X10*3/uL (160-400); Red Blood Count 4.96 X10*6/uL (4.60-5.80); Red Cell Distribution Width 20.7 % (11.0-16.0); White Blood Count 8.6 X10*3/uL (4.8-10.8)
[2024-08-26 14:26] LABS: Alanine Aminotransferase 7 U/L (0-40); Albumin Level 3.1 g/dL (3.5-5.0); Alkaline Phosphatase 127 U/L (39-117); Aspartate Amino Transferase 31 U/L (5-37); Bilirubin Direct 0.3 mg/dL (0.0-0.5); Bilirubin Total 0.6 mg/dL (0.0-1.0); Iron 18 mcg/dL (45-160); Percent Iron Saturation 5 % (15-50); Total Iron Binding Capacity 364 mcg/dL (228-428); Total Protein 6.8 g/dL (6.5-8.0); Unsaturated Iron Binding 346 ug/dL
[2024-08-26 14:41] LABS: Ferritin 7 ng/mL (20-250)
[2024-08-26 14:44] LABS: Vitamin B12 794 pg/mL (200-900)
== END 2024-08-26 10:12 | disposition home or self-care (01) ==
LOC: HO.HMGCLDS 10:11
PROVIDERS: PCP Internal Medicine; Visit Provider Internal Medicine
DX: D50.9 Iron deficiency anemia, unspecified (principal); K50.814 Crohn's disease of both small and large intestine with abscess
CPT/HCPCS: 36415; 80076; 82607; 82728; 82746; 83540; 85025

== ENCOUNTER 2024-09-06 12:31 | Outpatient (AMB) | payer MEDICARE, SELFPAY ==
--- NOTE | 2024-09-06 12:52 | MHC.OFFWIV ---
Intake Vital Signs 09/06/24 12:54 Weight 306 lb BP 100/60 Blood Pressure Location Rt brachial Position Sitting Pulse 65 Pulse Source Pulse Oximeter Pulse Oximetry (%) 98 Oxygen Delivery Method Room Air Intake Visit Reasons: EP-b/l legs swollen/pain Intake Note: Patient here for bilat leg pain that has been present for about 1 week. Patient Tobacco Use Status: Never used Tobacco Allergies ceftriaxone Adverse Reaction (Mild, Verified 09/06/24 12:55) Vomiting HPI HPI Comments History of Present Illness Details History of Present Illness - The patient is a 69-year-old male presenting with lower extremity edema. - The edema commenced suddenly and is localized to the legs, associated with discomfort in the knee area. - Past evaluations with Holter monitoring and echocardiography did not reveal abnormalities; previous leg ultrasound was normal. - The patient associates leg swelling with weight gain, noting an increase of approximately 10 pounds recently. - He reports neuropathic symptoms in his feet with burning sensations and reduced sensitivity, though he does not have a history of diabetes. - The patient takes furosemide 40 mg regularly and has experienced improvement with magnesium supplements for leg cramps. - Compression strategies are challenging due to stocking fit issues. -. Neuropathy noted in feet, with numbness, tingling, and burning sensation - Is questioning if he has had glucose checked recently - feels like he is urinating more than normal. - Is also asking if he has had PSA testing - again, feels like his urinating more than normal recently. Physical Exam General: Cooperative, healthy appearing, comfortable, no acute distress and well developed Orientation: Patient oriented x3 Limitations: No limitations Head: Normal to inspection Ears: Hearing grossly normal bilaterally Nose: Normal External nose present Face and sinus: Normal facial exam Eyes: Appearance normal, both eyes and all related structures Neck: Normal visual inspection and Yes full ROM Respiratory: Normal respiratory effort and able to speak in complete sentences. Clear to auscultation bilaterally Cardiovascular: irregular rate and regular rhythm. Normal S1 and S2. Skin: No rashes or lesions noted. LE bilateral non pitting edema Neuro: Patient oriented x3 Extremities:as above [facility] Medical History (Updated 09/06/24 @ 13:36 by Cady Thayer PA-C) Asthma with acute exacerbation Acute respiratory disease Impaired fasting glucose Nocturia Anemia Positive colorectal cancer screening using Cologuard test Cataract Non-pressure chronic ulcer of buttock Erythema intertrigo Moderate persistent allergic asthma Crohn's disease of perianal region with fistula Morbid obesity due to excess calories Gallstones Non-STEMI (non-ST elevated myocardial infarction) Atrial fibrillation, chronic FABIOLA on CPAP Vitamin D deficiency Acquired deformity of toenail Colostomy in place Empyema of left pleural space 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 Anal fistula Surgical History History of bowel resection History of appendectomy History of creation of ostomy Family History Father Emphysema lung HTN (hypertension) Pulmonary fibrosis Mother HTN (hypertension) Social History Household Members: Spouse Housing: [facility] Are you a primary caregivers non medical to a significant other at home: No Do you presently have visiting nurse or other home services: No Alcohol intake: former Patient Tobacco Use Status: Never used Tobacco e-Cigarette/Vaping Use: Never Used Second Hand Smoke Exposure: No Advance Directives Date on File: 06/05/21 service: No Current occupational status: retired Cognitive needs: No Hearing needs: No Vision needs: Yes Review of Systems Const All systems reviewed & are unremarkable except as noted in HPI and below Assessment & Plan Assessment & Plan (1) Bilateral lower extremity edema: Code(s): R60.0 - Localized edema Plan: Plan - Increase furosemide dose from 40mg daily to 60 mg daily for 5 days while monitoring for hypotension. Call us if BP < 90/60. - Educate on recognizing low blood pressure and the necessity of periodic checks. - Suggest trying 8-15mmHg compression stockings with a low pressure range and a zip option for fit ease. - Follow up with the GI doc for neuropathy evaluation and lab work review regarding low albumin, ferritin, and iron levels. - Encourage weight management discussion with the primary provider considering its influence on edema. - Follow up with PCP re: A1c, last fasting glucose 100mg/dL in 09/2023. Will let PCP know so at his f/u on 09/28, they can address his glucose/A1c. - Reviewed last few PSA's as per pt request, all WNL. Patient was informed and verbally consented to the use of an ambient scribe for clinic note documentation during this visit. Coding Level of Care Code Est Pt Level 4 (54918) Diagnoses Bilateral lower extremity edema R60.0
[2024-09-06 12:54] VITALS: BP 100/60; PULSE 65; O2SAT 98
== END 2024-09-06 13:50 | disposition home or self-care (01) ==
PROVIDERS: PCP Internal Medicine; Visit Provider Physician Assistant
DX: R60.0 Localized edema (principal)

== ENCOUNTER → 2024-09-06 12:31 | Outpatient (BNVA) | payer MEDICARE, SELFPAY | PROVIDERS: PCP Internal Medicine; Visit Provider Physician Assistant | DX: R60.0 Localized edema (principal) | CPT/HCPCS: 99212 ==

== ENCOUNTER 2024-09-07 14:05 | Outpatient (AMB) | payer MEDICARE, SELFPAY ==
[2024-09-07 14:08] VITALS: BP 110/60; PULSE 94; O2SAT 96; BMI 47.9
--- NOTE | 2024-09-07 14:08 | A.OFFVIS_ITS ---
Vital Signs 09/07/24 14:08 Height 5 ft 7 in Weight 306 lb BMI 47.9 BP 110/60 Blood Pressure Location Lt brachial Position Sitting Pulse 94 Pulse Source Pulse Oximeter Pulse Oximetry (%) 96 Oxygen Delivery Method Room Air Intake Visit Reasons: Asthma Allergies ceftriaxone Adverse Reaction (Mild, Verified 09/07/24 14:14) Vomiting HPI HPI Asthma: Details: 69-year-old gentleman, lifetime nonsmoker, with underlying history of AFib previously on amiodarone, followed for underlying severe persistent allergic asthma, environmental allergies, and FABIOLA on CPAP. ?He continues on Fasenra, Symbicort, and albuterol MDI with good control of his symptoms. He denies recent exacerbations. [facility] Medical History (Updated 09/06/24 @ 13:36 by Cady Thayer PA-C) Asthma with acute exacerbation Acute respiratory disease Impaired fasting glucose Nocturia Anemia Positive colorectal cancer screening using Cologuard test Cataract Non-pressure chronic ulcer of buttock Erythema intertrigo Moderate persistent allergic asthma Crohn's disease of perianal region with fistula Morbid obesity due to excess calories Gallstones Non-STEMI (non-ST elevated myocardial infarction) Atrial fibrillation, chronic FABIOLA on CPAP Vitamin D deficiency Acquired deformity of toenail Colostomy in place Empyema of left pleural space 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 Anal fistula Surgical History History of bowel resection History of appendectomy History of creation of ostomy Family History Father Emphysema lung HTN (hypertension) Pulmonary fibrosis Mother HTN (hypertension) Social History Household Members: Spouse Housing: Condominium Are you a primary home care manager to a significant other at home: No Do you presently have visiting nurse or other home services: No Alcohol intake: former Patient Tobacco Use Status: Never used Tobacco e-Cigarette/Vaping Use: Never Used Second Hand Smoke Exposure: No Advance Directives Date on File: 06/05/21 service: No Current occupational status: retired Cognitive needs: No Hearing needs: No Vision needs: Yes Review of Systems Const Denies daytime sleepiness, Denies excessive sweating, Denies fatigue, Denies fever(s), Denies lethargy, Denies malaise, Denies night sweats, Denies snoring and Denies weight loss Eyes Denies blurry vision and Denies itchy eyes ENT Denies nasal congestion, Denies post nasal drip, Denies sinus pain, Denies sinus pressure and Denies other ( Thrush) Card Denies chest pain, Denies pedal edema, Denies dyspnea, Denies orthopnea and Denies paroxysmal nocturnal dyspnea Resp Denies cough, Denies hemoptysis, Denies excessive phlegm production, Denies dyspnea, Denies snoring and Denies wheezing GI Denies abdominal pain and Denies heartburn Musc Denies myalgias, Denies arthralgias and Denies joint swelling Skin/Breast Denies rash Neuro Denies memory loss and Denies seizure-like activity Psych Denies abnormal sleep pattern, Denies anxiety and Denies memory loss Endo Denies excessive sweating, Denies fatigue and Denies heat intolerance Cas/Lymph Denies easy bruising Aller/Immun Denies itchy eyes, Denies seasonal rhinorrhea and Denies wheezing Physical Exam Vital Signs: Last Vital Signs Pulse 94 09/07/24 14:08 BP 110/60 09/07/24 14:08 Pulse Ox 96 09/07/24 14:08 Oxygen Delivery Method Room Air 09/07/24 14:08 BMI result Body Mass Index 47.9 Const General: no acute distress and alert Nutritional Appearance: obese Orientation/consciousness: Other orientation findings ( oriented) HEENT Head: Yes atraumatic Eyes General: appearance normal, both eyes and all related structures Sclerae: sclerae normal EOM: EOMs intact bilaterally Neck Neck: Yes supple Lymphatic: no lymphadenopathy noted Resp Effort & Inspection: normal respiratory effort and no use of accessory muscles Auscultation: clear to auscultation bilaterally Cardio Rate: regular rate Rhythm: regular rhythm Heart sounds: no gallops, no murmurs and no rubs Skin General skin exam: other ( warm) Extrem General: No clubbing, No cyanosis and No edema Assessment & Plan Assessment & Plan (1) Moderate persistent allergic asthma: Code(s): J45.40 - Moderate persistent asthma, uncomplicated Category: Medical Plan: Well controlled on Fasenra, Symbicort, and albuterol MDI. Continue current regimen. Add duo nebs as needed for acute exacerbations. (2) Environmental allergies: Code(s): Z91.09 - Other allergy status, other than to drugs and biological substances Category: Medical Plan: Well controlled on Fasenra. Continue current regimen. Medications: New ipratropium-albuterol 0.5 mg-3 mg(2.5 mg base)/3 mL 3 mL inhalation Q4-6H PRN 180 mL 6RF wheezing Changed From budesonide-formoterol 160-4.5 mcg/actuation (Symbicort) 2 puffs PO DAILY@1400 10.2 grams 0RF J45.40 - Moderate persistent asthma, uncomplicated To budesonide-formoterol 160-4.5 mcg/actuation (Symbicort) 2 puffs PO BID 10.2 grams 6RF J45.40 - Moderate persistent asthma, uncomplicated Refilled albuterol sulfate 90 mcg/actuation (Ventolin HFA) 2 puffs inhalation Q4H PRN 36 grams 2RF for wheezing J45.40 - Moderate persistent asthma, uncomplicated, R06.2 - Wheezing Coding Level of Care Code Est Pt Level 4 (45145) Diagnoses Moderate persistent allergic asthma J45.40 Environmental allergies Z91.09
== END 2024-09-07 14:30 | disposition home or self-care (01) ==
LOC: HO.HPS 14:06
PROVIDERS: PCP Internal Medicine; Visit Provider Internal Medicine Pulmonary Disease
DX: J45.40 Moderate persistent asthma, uncomplicated (principal); Z91.09 Other allergy status, other than to drugs and biological substances
CPT/HCPCS: 99214

== ENCOUNTER → 2024-09-07 14:05 | Outpatient (BNVA) | payer MEDICARE, SELFPAY | PROVIDERS: PCP Internal Medicine; Visit Provider Internal Medicine Pulmonary Disease | DX: J45.40 Moderate persistent asthma, uncomplicated (principal); Z91.09 Other allergy status, other than to drugs and biological substances | CPT/HCPCS: 99212 ==

== ENCOUNTER 2024-09-28 07:50 | Outpatient (AMB) | payer MEDICARE, SELFPAY ==
--- NOTE | 2024-09-28 07:54 | MHC.PC.OV ---
Vital Signs 09/28/24 07:55 Height 5 ft 7 in Weight 301 lb BMI 47.1 BP 100/58 L Blood Pressure Location Lt brachial Position Sitting Respiration 16 Pulse 94 Pulse Source Pulse Oximeter Temp 98.2 F Temp Source Oral Pulse Oximetry (%) 95 Oxygen Delivery Method Room Air Intake Visit Reasons: f/u walkin Intake Note: Pt is here today for a f/u walkin bilateral lower extremity edema Allergies ceftriaxone Adverse Reaction (Mild, Verified 10/03/24 01:30) Vomiting Medication List - Last Reconciled 10/03/24 by Isabel Tilley MD albuterol sulfate 90 mcg/actuation (Ventolin HFA) 2 puffs inhalation Q4H PRN apixaban (Eliquis) 5 mg PO BID balsalazide 2,250 mg PO TID benralizumab (Fasenra) 30 mg subcut Q8W budesonide-formoterol 160-4.5 mcg/actuation (Symbicort) 2 puffs PO BID cholecalciferol (vitamin D3) 25 mcg PO DAILY [COq10 PO DAILY] digoxin 125 mcg PO DAILY ferrous sulfate 325 mg PO DAILY furosemide 20 mg PO DAILY inhalational spacing device (BreatheRite MDI Spacer) As directed ipratropium-albuterol 0.5 mg-3 mg(2.5 mg base)/3 mL 3 mL inhalation Q4-6H PRN krill oil 500 mg PO DAILY lactobacillus combination no.9 (Adult 50 Plus Probiotic) 4,000 mmu cells PO DAILY magnesium 250 mg PO DAILY mecobalamin (vitamin B12) mcg PO melatonin 10 mg PO BEDTIME PRN metoprolol tartrate 50 mg PO BID multivitamin 1 tab PO DAILY Tobacco use date assessed: 09/28/24 Fall risk assessment: No Falls in past year Last assessed Fall Risk: 09/28/24 Dental Screening Dental Screen Date: 09/28/24 Did you have a dental visit in the last 12 months?: Yes Did you have a dental problem in the last 6 months where you did not have access to dental care?: No Was dental information given to patient?: Patient has dentist HPI f/u walkin HPI Details 69-year-old male with history of perianal Crohn's disease, with iron-deficiency anemia, impaired fasting glucose, atrial fibrillation on Eliquis 5 mg 1 tablet twice a day quiet heart failure and moderate persistent allergic asthma as well as obstructive sleep apnea on CPAP, here today follow-up after being seen at the walk-in clinic for swelling in both lower extremities left more than right. Fast evaluations with Holter monitor and echocardiogram did not reveal any abnormality and previously ultrasound was normal. He has tried using compression stockings and wraps but found it impossible to put on. ms in his feet with burning sensations and reduced sensitivity, though he does not have a history of diabetes. His dose of furosemide was increased from 40 mg to 60 mg, with some notable improvement in his swelling in both lower extremities. Patient states that he brought down his furosemide dose now back to 20 mg daily [facility] Medical History (Updated 09/28/24 @ 08:39 by Isabel Tilley MD) Gait instability Iron deficiency anemia Localized swelling, mass and lump, lower limb, bilateral Asthma with acute exacerbation Acute respiratory disease Impaired fasting glucose Nocturia Anemia Positive colorectal cancer screening using Cologuard test Cataract Non-pressure chronic ulcer of buttock Erythema intertrigo Moderate persistent allergic asthma Crohn's disease of perianal region with fistula Morbid obesity due to excess calories Gallstones Non-STEMI (non-ST elevated myocardial infarction) Atrial fibrillation, chronic FABIOLA on CPAP Vitamin D deficiency Acquired deformity of toenail Colostomy in place Empyema of left pleural space Current use of mcc anticoagulation Anal fistula Surgical History History of bowel resection History of appendectomy History of creation of ostomy Family History Father Emphysema lung HTN (hypertension) Pulmonary fibrosis Mother HTN (hypertension) Social History Household Members: Spouse Housing: Condominium Are you a primary animal care assistant to a significant other at home: No Do you presently have visiting nurse or other home services: No Alcohol intake: former Patient Tobacco Use Status: Never used Tobacco e-Cigarette/Vaping Use: Never Used Second Hand Smoke Exposure: No Advance Directives Date on File: 06/05/21 service: No Current occupational status: retired Cognitive needs: No Hearing needs: No Vision needs: Yes Questionnaire PHQ-9 Over the last 2 weeks, how often have you been bothered by any of the following problems? Depression Screening Interpretation: Negative Depression Screening Done: Yes Source: Developed by Drs. Arron Summers, Lizabeth Shine, Bradley Cobb and colleagues, with an educational deni from [employer]. Thrive Questionnaire Date Thrive assessed: 01/03/24 SELIN-7 AMB Questionnaire SELIN-7 Date SELIN - 7 assessed: 04/07/23 Source: Developed by Drs. Arron Summers, Lizabeth Shine, Bradley Cobb and colleagues, with an educational deni from [employer]. Review of Systems Const Denies daytime sleepiness, Denies excessive sweating, Denies fatigue, Denies fever(s), Denies lethargy, Denies malaise, Denies night sweats, Denies snoring and Denies weight loss Eyes Denies blurry vision and Denies itchy eyes ENT Denies nasal congestion, Denies post nasal drip, Denies sinus pain and Denies sinus pressure Card Denies acrocyanosis, Denies chest pain, Denies chest pain at rest, Denies lightheadedness, Denies dyspnea, Denies orthopnea and Denies paroxysmal nocturnal dyspnea Resp Denies cough, Denies hemoptysis, Denies excessive phlegm production, Denies dyspnea, Denies snoring and Denies wheezing GI Denies abdominal pain and Denies heartburn Reports no additional complaints Musc Denies myalgias, Denies arthralgias and Denies joint swelling Skin/Breast Denies rash Neuro Denies memory loss and Denies seizure-like activity Psych Denies abnormal sleep pattern, Denies anxiety and Denies memory loss Endo Denies excessive sweating, Denies fatigue and Denies heat intolerance Cas/Lymph Denies easy bruising Aller/Immun Denies itchy eyes, Denies seasonal rhinorrhea and Denies wheezing Physical exam (Primary Care) Vital Signs: Last Vital Signs Temp 98.2 F 09/28/24 07:55 Pulse 94 09/28/24 07:55 Resp 16 09/28/24 07:55 BP 100/58 L 09/28/24 07:55 Pulse Ox 95 09/28/24 07:55 Oxygen Delivery Method Room Air 09/28/24 07:55 BMI result Body Mass Index 47.1 Tobacco/Smoking Status: Tobacco use Status Tobacco use date assessed 09/28/24 09/28/24 08:04 Patient Tobacco Use Status Never used Tobacco 09/28/24 07:55 e-Cigarette/Vaping Use Never Used 09/28/24 07:55 Depression Screening Interpretation: Negative Thrive Assessment: Date of Thrive Assessment Date Thrive assessed 01/03/24 09/28/24 07:55 Const General: no acute distress Nutritional Appearance: obese morbidly obese Orientation/consciousness: patient oriented x3 HENMT Face and sinus: Yes face symmetric Mouth: oropharynx normal and moist mucous membranes Eyes General: appearance normal, both eyes and all related structures Neck Other: Supple, no lymphadenopathy, thyroid gland nonpalpable Resp Auscultation: clear to auscultation bilaterally Cardio Other: Irregularly irregular rhythm GI Other: Colostomy on left side draining brown liquid feces Palpation (GI): Soft to palpation, nontender, no guarding and no masses Auscultation: normal bowel sounds General: Yes no CVA tenderness Back/Spine/Pelvis Back: no CVA tenderness and No back tenderness Skin Other: Mild erythema noted in distal aspect of both lower extremities left more than right Neuro General: patient oriented x3, gait normal, tone normal, moves all extremities, Normal light touch and pain sensation, no focal motor deficits and CN's II-XI intact bilaterally Extrem Other: Trace ankle edema noted bilaterally left more than the right, no calf tenderness General: Yes full ROM and Yes normal gait Psych Appearance: grossly normal Mental Status: mental status grossly normal Speech and movement: Normal speech and movement present Affect: normal affect Thought process: Normal thought process present Coding Level of Care Code Est Pt Level 4 (11418) Diagnoses Bilateral lower extremity edema R60.0 Atrial fibrillation, chronic I48.20 Crohn's disease of perianal region with fistula K50.113 Impaired fasting glucose R73.01 Iron deficiency anemia D50.9 Gait instability R26.81 Assessment & Plan Assessment & Plan (1) Bilateral lower extremity edema: Code(s): R60.0 - Localized edema Category: Medical Plan: Continue with furosemide, edema slowly receding BNP ordered (2) Atrial fibrillation, chronic: Code(s): I48.20 - Chronic atrial fibrillation, unspecified Category: Medical Plan: Currently on Eliquis followed by cardiology (3) Crohn's disease of perianal region with fistula: Code(s): K50.113 - Crohn's disease of large intestine with fistula Category: Medical Plan: He had recent colonoscopy done at [place] a Dr. Lopes (4) Impaired fasting glucose: Code(s): R73.01 - Impaired fasting glucose Category: Medical Plan: Will check hemoglobin A1c (5) Iron deficiency anemia: Code(s): D50.9 - Iron deficiency anemia, unspecified Category: Medical Plan: Will check iron profile CBC again in November units started ferrous sulfate 325 mg to take once a day (6) Gait instability: Code(s): R26.81 - Unsteadiness on feet Category: Medical Plan: Referred for physical therapy for further evaluation management Orders: Orders US venous insuf bilat 09/28/24 Isabel Tilley MD R22.43 - Localized swelling, mass and lump, lower limb, bilateral Lipid Panel 11/30/24 Isabel Tilley MD D50.9 - Iron deficiency anemia, unspecified, E66.01 - Morbid (severe) obesity due to excess calories, I48.20 - Chronic atrial fibrillation, unspecified, K50.113 - Crohn's disease of large intestine with fistula, R22.43 - Localized swelling, mass and lump, lower limb, bilateral, R60.0 - Localized edema, R73.01 - Impaired fasting glucose PSA,Total (Free>4and<10) 11/30/24 Isabel Tilley MD D50.9 - Iron deficiency anemia, unspecified, E66.01 - Morbid (severe) obesity due to excess calories, I48.20 - Chronic atrial fibrillation, unspecified, K50.113 - Crohn's disease of large intestine with fistula, R22.43 - Localized swelling, mass and lump, lower limb, bilateral, R60.0 - Localized edema, R73.01 - Impaired fasting glucose B Type Natriuretic Peptide 09/28/24 Isabel Tilley MD I48.20 - Chronic atrial fibrillation, unspecified, I50.812 - Chronic right heart failure, R60.0 - Localized edema Comprehensive [place]. Panel Fast 11/30/24 Isabel Tilley MD D50.9 - Iron deficiency anemia, unspecified, E66.01 - Morbid (severe) obesity due to excess calories, I48.20 - Chronic atrial fibrillation, unspecified, K50.113 - Crohn's disease of large intestine with fistula, R22.43 - Localized swelling, mass and lump, lower limb, bilateral, R60.0 - Localized edema, R73.01 - Impaired fasting glucose IRON PROFILE 11/30/24 Isabel Tilley MD D50.9 - Iron deficiency anemia, unspecified, E66.01 - Morbid (severe) obesity due to excess calories, I48.20 - Chronic atrial fibrillation, unspecified, K50.113 - Crohn's disease of large intestine with fistula, R22.43 - Localized swelling, mass and lump, lower limb, bilateral, R60.0 - Localized edema, R73.01 - Impaired fasting glucose Vitamin D 25-OH Total 11/30/24 Isabel Tilley MD D50.9 - Iron deficiency anemia, unspecified, E66.01 - Morbid (severe) obesity due to excess calories, I48.20 - Chronic atrial fibrillation, unspecified, K50.113 - Crohn's disease of large intestine with fistula, R22.43 - Localized swelling, mass and lump, lower limb, bilateral, R60.0 - Localized edema, R73.01 - Impaired fasting glucose Complete Blood Count Auto Diff 11/30/24 Isabel Tilley MD D50.9 - Iron deficiency anemia, unspecified, E66.01 - Morbid (severe) obesity due to excess calories, I48.20 - Chronic atrial fibrillation, unspecified, K50.113 - Crohn's disease of large intestine with fistula, R22.43 - Localized swelling, mass and lump, lower limb, bilateral, R60.0 - Localized edema, R73.01 - Impaired fasting glucose PT Evaluation and Treatment 09/28/24 Isabel Tilley MD R26.81 - Unsteadiness on feet Hemoglobin A1c 09/28/24 Isabel Tilley MD R73.01 - Impaired fasting glucose Medications: New ferrous sulfate 325 mg PO DAILY 90 tabs 2RF Isabel Tilley MD Changed From furosemide 40 mg (2 x 20 mg) PO DAILY 180 tabs 3RF To furosemide 20 mg PO DAILY Dimitri Villarreal MD
[2024-09-28 07:55] VITALS: BP 100/58; PULSE 94; RESP 16; TEMP 36.8; O2SAT 95; BMI 47.1
== END 2024-09-28 08:38 | disposition home or self-care (01) ==
LOC: HO.HMCC 07:50
PROVIDERS: PCP Internal Medicine; Visit Provider Internal Medicine
DX: R60.0 Localized edema (principal); I48.20 Chronic atrial fibrillation, unspecified; K50.113 Crohn's disease of large intestine with fistula; R73.01 Impaired fasting glucose; D50.9 Iron deficiency anemia, unspecified; R26.81 Unsteadiness on feet

== ENCOUNTER → 2024-09-28 07:50 | Outpatient (BNVA) | payer MEDICARE, SELFPAY | PROVIDERS: PCP Internal Medicine; Visit Provider Internal Medicine | DX: R60.0 Localized edema (principal); I48.20 Chronic atrial fibrillation, unspecified; K50.113 Crohn's disease of large intestine with fistula; R73.01 Impaired fasting glucose; D50.9 Iron deficiency anemia, unspecified; R26.81 Unsteadiness on feet | CPT/HCPCS: 99212 ==

== ENCOUNTER 2024-10-15 22:49 | Emergency (ER) | payer MEDICARE, SELFPAY ==
--- NOTE | ~2024-10-15 | CT_ITS ---
CLINICAL HISTORY: Decreased output from ostomy, distention R O obstr CT abdomen and pelvis with contrast Comparison: CT/REG/[place]/SR - CT ABDOMEN PELVIS WITHOUT IV CONTRAST - 11/16/21 16:21 EDT Indication: Decreased output from ostomy, distention Findings: The lung bases are clear. Patient is status post sigmoidectomy. There is moderate stool burden is present within the ascending, transverse and descending colon. Patient is status post left diverting colostomy. No focal wall thickening or adjacent fat stranding is present. Partially opacified small bowel is normal. There is normal vascular enhancement. Liver is normal. Patient is status post cholecystectomy. Stomach is distended. Adrenal glands and kidneys are normal. No bowel obstruction, pneumoperitoneum, or pneumatosis. Pelvic contents unremarkable. Normal appendix. There is a right gluteal decubitus or cellulitis. IMPRESSION: No acute intra-abdominal or pelvic findings. Patient is status post sigmoidectomy and diverting ostomy. No evidence of large bowel obstruction. Moderate stool burden in the transverse colon. Right gluteal cutaneous thickening, consistent with decubiti or infection/cellulitis. This document has been electronically signed by: Lars Santillan III, MD PHD on 10/16/2024 04:41:36
[2024-10-15 22:52] VITALS: BP 128/84; PULSE 89; RESP 19; TEMP 36.6; O2SAT 98; BMI 47.0
[2024-10-15 23:35] LABS: MANUAL DIFF FLAG NO
[2024-10-15 23:36] LABS: Hematocrit 38.6 % (42.0-52.0); Hemoglobin 10.4 g/dl (14.0-18.0); Imm Gran Abs Auto 0.05 X10*3/uL (0.00-0.03); Imm Gran Pct Auto 0.5 % (0.0-0.4); Lymphocytes Absolute Auto 1.5 X10*3/uL (1.2-4.9); Mean Corpuscular HGB Conc 26.9 g/dl (31.0-36.0); Mean Corpuscular Hemoglobin 19.9 pg (27.0-33.0); Mean Corpuscular Volume 73.9 fL (80.0-98.0); NRBC Abs Auto 0.000 X10*3/uL (0.0-0.012); NRBC Pct Auto 0.0 /100WBC (0.0-0.2); Platelet Count 299 X10*3/uL (160-400); Red Blood Count 5.22 X10*6/uL (4.60-5.80); White Blood Count 11.0 X10*3/uL (4.8-10.8)
[2024-10-15 23:57] LABS: Alanine Aminotransferase 9 U/L (0-40); Albumin Level 3.4 g/dL (3.5-5.0); Alkaline Phosphatase 124 U/L (39-117); Anion Gap 15 (12-20); Aspartate Amino Transferase 37 U/L (5-37); Blood Urea Nitrogen 10 mg/dL (9-16); Calcium 8.7 mg/dL (8.4-10.2); Carbon Dioxide 26 mmol/L (22-29); Chloride 104 mmol/L (96-108); Creatinine Clr Calc Pharmacy 91.7; Estimated Glomerular Filt Rate > 60; Potassium 4.2 mmol/L (3.3-5.1); Sodium 141 mmol/L (135-145); Total Protein 7.2 g/dL (6.5-8.0)
--- NOTE | 2024-10-16 00:06 | ED_ITS ---
HPI - Abdominal Pain General Chief Complaint: Abdominal Pain Stated Complaint: abd pain, ?blockage - has ostomy Time Seen by Provider: 10/16/24 00:05 Source: patient Mode of arrival: ambulatory Limitations: no limitations History of Present Illness ED Provider: Dr. Neearj Moreno HPI narrative: 69-year-old male with a history of hypothyroidism, atrial fibrillation on apixaban, cholecystectomy, colostomy, appendectomy, bowel resection, Crohn's disease, NSTEMI, FABIOLA on CPAP who presents emergency department for evaluation of possible blockage of his colostomy. The patient states he normally puts out diarrheal type stool and changes his ostomy bag 8 times a day. Throughout the day yesterday he only put out a proximally 1/2 bag of stool and he states that the ostomy has stopped draining completely. Patient feels bloated and distended. He states he is having severe greater than 10/10 pain located diffusely in his abdomen. Patient states that he has had similar decreased output in the past but has never had a complete bowel obstruction that he is aware of in his never had to be hospitalized for bowel obstruction. Related Data Home Medications ?Medication ?Instructions ?Recorded ?Confirmed balsalazide 750 mg capsule 2,250 mg PO TID 03/02/20 krill oil 500 mg capsule 500 mg PO DAILY 09/11/2005/24 lactobacillus combination no.9 4 4,000 mmu cells PO DA GLENIS 09/11/20 09/28/24 billion cell capsule (Adult 50 Plus Probiotic) multivitamin 1 tab PO DAILY 09/11/2005/24 cholecalciferol (vitamin D3) 25 25 mcg PO DAILY 09/28/24 mcg (1,000 unit) tablet melatonin 10 mg tablet 10 mg PO BEDTIME PRN Insomni a 11/19/22 09/28/24 COq10 PO DAILY 04/21/24 09/28/24 magnesium 250 mg tablet 250 mg PO DAILY 04/21/2405/24 mecobalamin (vitamin B12) 500 mcg mcg PO 07/15/2405/24 chewable tablet furosemide 20 mg tablet 20 mg PO DAILY 09/28/2410/21 Previous Rx's ?Medication ?Instructions ?Recorded inhalational spacing device #1 ea 09/11/20 (BreatheRite MDI Spacer) benralizumab 30 mg/mL subcutaneous 30 mg subcut Q8W #1 mL 03/18/22 syringe (Fasenra) apixaban 5 mg tablet (Eliquis) 5 mg PO BID #180 tabs 0 06/20/24 metoprolol tartrate 50 mg tablet 50 mg PO BID #180 tab s 06/20/24 digoxin 125 mcg (0.125 mg) tablet 125 mcg PO DAILY #90 tabs 09/01/24 albuterol sulfate 90 mcg/actuation 2 puff inhalation Q 4H PRN for 09/07/24 aerosol inhaler (Ventolin HFA) wheezing #36 grams ipratropium 0.5 mg-albuterol 3 mg 3 ml inhalation Q4-6 H PRN wheezing 09/07/24 (2.5 mg base)/3 mL nebulization #180 mL soln budesonide-formoterol HFA 160 2 puff PO BID #10.2 gram s 09/23/24 mcg-4.5 mcg/actuation aerosol inhaler (Symbicort) ferrous sulfate 325 mg (65 mg 325 mg PO DAILY #90 tabs 09/28/24 iron) tablet Allergies Allergy/AdvReac Type Severity Reaction Status Date / Time ceftriaxone AdvReac Mild Vomiting Verified 10/15/24 22:55 Review of Systems Review of Systems Yes all other systems are reviewed and are negative [facility] Past Medical History [facility] Narrative: Social history: He is . His is here in the emergency department with him. Medical History (Updated 10/17/24 @ 00:02 by Karel Quiles) Gait instability Iron deficiency anemia Localized swelling, mass and lump, lower limb, bilateral Asthma with acute exacerbation Acute respiratory disease Impaired fasting glucose Nocturia Anemia Positive colorectal cancer screening using Cologuard test Cataract Non-pressure chronic ulcer of buttock Erythema intertrigo Moderate persistent allergic asthma Crohn's disease of perianal region with fistula Morbid obesity due to excess calories Gallstones Non-STEMI (non-ST elevated myocardial infarction) Atrial fibrillation, chronic FABIOLA on CPAP Vitamin D deficiency Acquired deformity of toenail Colostomy in place Empyema of left pleural space Current use of group home anticoagulation Anal fistula Surgical History History of bowel resection History of appendectomy History of creation of ostomy Family History Family History Father Emphysema lung HTN (hypertension) Pulmonary fibrosis Mother HTN (hypertension) Social History Social History Household Members: Spouse [facility] Are you a primary customer care manager to a significant other at home: No Do you presently have visiting nurse or other home services: No Alcohol intake: former Patient Tobacco Use Status: Never used Tobacco e-Cigarette/Vaping Use: Never Used Second Hand Smoke Exposure: No Advance Directives Date on File: 06/05/21 service: No Current occupational status: retired Cognitive needs: No Hearing needs: No Vision needs: Yes Physical Exam ED Vital Signs: Vital Signs - 24 hr 10/15/24 22:52 10/16/24 01:58 10/16/24 01:59 Temperature 98 F Pulse Rate 89 101 H Respiratory Rate 19 18 Blood Pressure 128/84 114/63 Pulse Oximetry 98 79 L 94 Oxygen Delivery Method Room Air Room Air Nasal Cannula Oxygen Flow Rate 2 10/16/24 03:42 Temperature 98.3 F Pulse Rate 103 H Respiratory Rate 19 Blood Pressure 126/56 L Pulse Oximetry 100 Oxygen Delivery Method Nasal Cannula Oxygen Flow Rate 2 BMI result Body Mass Index 47.0 Vital signs were normal. Exam: General: Awake, in moderate distress secondary to his abdominal discomfort, actively vomiting, weight was 136. 1 kg, elevated BMI 47 kg per m2 Head: Normocephalic, atraumatic EENT: PERRL, Lids normal, sclera normal, conjunctiva normal, nose normal , ears normal, throat without erythema or exudates Neck: Supple, no adenopathy Lung: breath sounds symmetric, no wheezing, rales or rhonchi Chest: symmetric movement, nontender Heart: regular rate and rhythm, normal S1, S2 no murmurs or rubs Abdomen: Distended, mild to moderate diffuse tenderness, ostomy left abdomen with small amount of brown loose appearing stool in the ostomy bag, no blood Back: no vertebral tenderness, no CVAT Extremities: no deformities, moves all extremities symmetrically, trace to 1+ pitting edema Neuro: Awake, alert, oriented, normal speech, cranial nerves intact, moves all extremities symmetrically Psych: Pleasant, cooperative Medical Decision Making Medical Decision Making MDM Narrative: 69-year-old male with a history of hypothyroidism, atrial fibrillation on apixaban, cholecystectomy, colostomy, appendectomy, bowel resection, Crohn's disease, NSTEMI, FABIOLA on CPAP who presents emergency department for evaluation of possible blockage of his colostomy. The patient states he normally puts out diarrheal type stool and changes his ostomy bag 8 times a day. Throughout the day yesterday he only put out a proximally 1/2 bag of stool and he states that the ostomy has stopped draining completely. Patient feels bloated and distended. He states he is having severe greater than 10/10 pain located diffusely in his abdomen. Patient states that he has had similar decreased output in the past but has never had a complete bowel obstruction that he is aware of in his never had to be hospitalized for bowel obstruction. Vital signs were normal. Patient was actively vomiting when I was in the room. Abdomen is distended with mild to moderate diffuse tenderness, ostomy is in the right abdomen with small amount of loose brown stool with no blood in the ostomy bag. Differential diagnosis: ?Includes but is not limited to small-bowel obstruction, large bowel obstruction, Crohn's flare-up, diverticulitis, pancreatitis, anemia, electrolyte abnormalities Course: 05:09 The patient was treated with Dilaudid 1 mg IV x2, Zofran 4 mg IV, Reglan 10 mg IV and Benadryl 50 mg IV with improvement of his symptoms. My independent interpretation patient's laboratory evaluation is as follows: Microcytic anemia with an H&H of 10.4 and 38.6 with an MCV of 73. Glucose elevated 116. Alk-phos elevated 1 24. LFTs were normal. Lipase was normal. CT scan of the abdomen pelvis with IV and oral contrast did not reveal any bowel obstruction. The patient states that he now is feeling significantly better and he has almost filled his ostomy bag with stool. This time I believe that the patient's symptoms may have been secondary to severe constipation and the oral contrast may have stimulated in his bowels causing relief of his symptoms. I did discuss this with the patient and the patient will be discharged home. Admission/Observation Consideration of admission/observation: Escalation of care including admission/observation considered (Yes) Lab Data [facility] Lab Attestation statement: I reviewed the patient's lab results. 10/15/24 23:31 10/15/24 23:31 Labs: Lab Results 10/15/24 10/16/24 Range/Units 23:31 01:50 WBC 11.0 H (4.8-10.8) X10*3/uL RBC 5.22 (4.60-5.80) X10*6/uL Hgb 10.4 L (14.0-18.0) g/dl Hct 38.6 L (42.0-52.0) % MCV 73.9 L (80.0-98.0) fL MCH 19.9 L (27.0-33.0) pg MCHC 26.9 L (31.0-36.0) g/dl RDW 24.6 H (11.0-16.0) % Plt Count 299 (160-400) X10*3/uL MPV 10.0 (9.4-12.4) fL Immature Gran % (Auto) 0.5 H (0.0-0.4) % Neut % (Auto) 75.5 H (45-73) % Lymph % (Auto) 13.8 L (20-40) % Metcalfe % (Auto) 10.1 (2-11) % Eos % (Auto) 0.0 (0-4) % Baso % (Auto) 0.1 (0-2) % Lymph # (Auto) 1.5 (1.2-4.9) X10*3/uL Metcalfe # (Auto) 1.1 (0.1-1.2) X10*3/uL Eos # (Auto) 0.0 (0.0-0.4) X10*3/uL Baso # (Auto) 0.0 (0.0-0.2) X10*3/uL Abs Immat Gran (auto) 0.05 H (0.00-0.03) X10*3/uL Absolute Neuts (auto) 8.3 (2.0-8.3) x10*3/uL Absolute Nucleated RBC 0.000 (0.0-0.012) X10*3/uL Nucleated RBC % (auto) 0.0 (0.0-0.2) /100WBC PT 15.6 H (10.9-12.4) SEC INR 1.4 H (0.9-1.1) Sodium 141 (135-145) mmol/L Potassium 4.2 (3.3-5.1) mmol/L Chloride 104 (96-108) mmol/L Carbon Dioxide 26 (22-29) mmol/L Anion Gap 15 (12-20) BUN 10 (9-16) mg/dL Creatinine 1.04 (0.5-1.4) mg/dL Estim Creat Clear Calc 91.7 Estimated GFR > 60 Random Glucose 116 H (60-115) mg/dL Calcium 8.7 (8.4-10.2) mg/dL Total Bilirubin 0.8 (0.0-1.0) mg/dL AST 37 (5-37) U/L ALT 9 (0-40) U/L Alkaline Phosphatase 124 H (39-117) U/L Total Protein 7.2 (6.5-8.0) g/dL Albumin 3.4 L (3.5-5.0) g/dL Lipase 12 (8-78) U/L Independent Interpretation I performed an independent interpretation of an: EKG Interpretation: My independent interpretation of the patient's 12 EKG done on 10/16/2024 at 01:33 hours is as follows: Atrial fibrillation with a rate of 84, normal QRS and QTC interval, no ST segment elevation, no ST segment depression, no significant T- wave abnormalities Radiology Impression Discussion of test interpretation with radiology: I have reviewed the radiologist's reading. Radiologist Impression: CT abdomen and pelvis with contrast Comparison: CT/REG/NH/SR - CT ABDOMEN PELVIS WITHOUT IV CONTRAST - 11/16/21 16:21 EDT Indication: Decreased output from ostomy, distention IMPRESSION: No acute intra-abdominal or pelvic findings. Patient is status post sigmoidectomy and diverting ostomy. No evidence of large bowel obstruction. Moderate stool burden in the transverse colon. Right gluteal cutaneous thickening, consistent with decubiti or infection/cellulitis. This document has been electronically signed by: Lars Santillan III, MD PHD on 10/16/2024 04:41:36 Dictated By: Lars Santillan MD Independent Historian Clinical information obtained from an independent historian. History obtained from or confirmed by: Spouse External Record Review External record reviewed: Office record (Surgical notes) Chronic Conditions Patient?s care impacted by: Other (Crohn's disease) Medications Administered Discontinued Medications Generic Name Dose Route Start Last Admin Trade Name Otfq PRN Reason Stop Dose Admin Diatrizoate Meglum/Diatrizoate Sod 30 ml 10/16/24 03:21 10/16/24 03:21 Diatrizoate Meglumine, Sodium 30 Ml Solution PO 10/16/24 03:22 30 ml ONCE ONE Administration Diphenhydramine HCl 50 mg 10/16/24 01:48 10/16/24 03:15 Diphenhydramine Hcl 50 Mg/Ml Vial IVPUSH 10/16/24 01:49 50 mg ONCE STA Administration Hydromorphone HCl 1 mg 10/16/24 00:19 10/16/24 00:28 Hydromorphone Hcl 1 Mg/Ml Syringe IVPUSH 10/16/24 00:20 1 mg ONCE ONE Administration Protocol Hydromorphone HCl 1 mg 10/16/24 01:44 10/16/24 01:49 Hydromorphone Hcl 1 Mg/Ml Syringe IVPUSH 10/16/24 01:45 1 mg ONCE STA Administration Protocol Sodium Chloride 1,000 mls @ 999 mls/hr 10/16/24 00:06 10/16/24 01:46 Ns IV 10/16/24 01:06 Infused .Q1H1M STA Infusion Iohexol 100 ml 10/16/24 03:20 10/16/24 03:20 Iohexol 350 Mg/Ml 100 Ml Infus..Btl IV 10/16/24 03:21 100 ml ONCE ONE Administration Metoclopramide HCl 10 mg 10/16/24 01:48 10/16/24 03:15 Metoclopramide Hcl 10 Mg/2 Ml Vial IVPUSH 10/16/24 01:49 10 mg ONCE STA Administration Morphine Sulfate 4 mg 10/16/24 00:06 10/16/24 00:34 Morphine Sulfate 4 Mg/Ml Cartridge IVPUSH 10/16/24 00:07 Not Given ONCE STA Protocol Ondansetron HCl 4 mg 10/16/24 00:06 10/16/24 00:23 Ondansetron Hcl 4 Mg/2 Ml Vial IVPUSH 10/16/24 00:07 4 mg ONCE ONE Administration Critical Care Time Critical Care Time Critical Care Time: Yes Total Critical Care Time: 35 Attestation: Critical Care: The patient was critically ill with a high probability of imminent or life threatening deterioration. I spent greater than 30 minutes of discontinuous time evaluating the patient,delivering critical care at the bedside, discussing and evaluating pertinent data with consultants. Critical care time does not include time spent performing separately billable procedures or teaching. Total time spent performing critical care was 35 minutes. Discharge Plan Discharge Clinical Impression: Abdominal pain, Constipation, Abdominal distension Patient Disposition: Home, Self-Care Additional Instructions: Your blood work was unremarkable. The CT scan of your abdomen and pelvis with both oral and IV contrast did not reveal any bowel blockage which is reassuring. Your symptoms may have been secondary to severe constipation and the oral contrast may have stimulated your bowels relieving some of your symptoms. Continue taking medications as prescribed by your providers. Follow-up with your doctor in 2 days. Please return to the emergency department if your symptoms get worse or if you develop any symptoms that are concerning to you. Prescriptions: No Action Fasenra 30 mg/mL syringe 30 mg subcut Q8W Qty: 1 11RF Eliquis 5 mg tablet 5 mg PO BID Qty: 180 3RF metoprolol tartrate 50 mg tablet 50 mg PO BID Qty: 180 3RF digoxin 125 mcg (0.125 mg) tablet 125 mcg PO DAILY Qty: 90 3RF budesonide-formoterol [Symbicort] 160-4.5 mcg/actuation HFA aerosol inhaler 2 puff PO BID Qty: 10.2 6RF cholecalciferol (vitamin D3) 25 mcg (1,000 unit) Tablet 25 mcg PO DAILY melatonin 10 mg Tablet 10 mg PO BEDTIME PRN (Reason: Insomnia) krill oil 500 mg capsule 500 mg PO DAILY Adult 50 Plus Probiotic 4 billion cell capsule 4,000 mmu cells PO DAILY Rx Instructions: administer with a meal multivitamin Tablet 1 tab PO DAILY (DME) BreatheRite MDI Spacer Spacer See Rx Instructions .ROUTE .MEDSUPPLY Qty: 1 0RF Rx Instructions: As directed balsalazide 750 mg capsule 2,250 mg PO TID magnesium 250 mg tablet 250 mg PO DAILY COq10 tablet PO DAILY mecobalamin (vitamin B12) 500 mcg tablet,chewable PO albuterol sulfate [Ventolin HFA] 90 mcg/actuation HFA aerosol inhaler 2 puff inhalation Q4H PRN (Reason: for wheezing) Qty: 36 2RF ipratropium-albuterol 0.5 mg-3 mg(2.5 mg base)/3 mL solution for nebulization 3 ml inhalation Q4-6H PRN (Reason: wheezing) Qty: 180 6RF furosemide 20 mg tablet 20 mg PO DAILY ferrous sulfate 325 mg (65 mg iron) tablet 325 mg PO DAILY Qty: 90 2RF Interventions: ED Discharge Assessment Last Done: 10/16/24 05:45 Discharge Date/Time: 10/16/24 05:47 Print Language: French
[2024-10-16 00:37] LABS: Lipase 12 U/L (8-78)
--- NOTE | 2024-10-16 00:37 | ECG_ITS ---
Test Reason : STOMACH PAIN Blood Pressure : */* mmHG Vent. Rate : 84 BPM Atrial Rate : * BPM P-R Int : * ms QRS Dur : 88 ms QT Int : 384 ms P-R-T Axes : * -21 -5 degrees QTcB Int : 453 ms Atrial fibrillation Anterior infarct , age undetermined Abnormal ECG When compared with ECG of 02-Jan-2024 17:01, No significant change was found Referred By: Neeraj Moreno Electronically Signed By: VALERIA CUNNINGHAM
--- NOTE | 2024-10-16 00:43 | PC.NURSE ---
pt relocated to a recliner for comfort (positionally). Aware of plan for CT with IV contrast, Oral contrast given with instructions and pt advised to take slow sips and drink as much as possible as this will allow for better imaging and identification if there is a blockage
[2024-10-16 01:58] VITALS: O2SAT 79
[2024-10-16 01:59] VITALS: BP 114/63; PULSE 101; RESP 18; O2SAT 94
--- NOTE | 2024-10-16 02:01 | PC.NURSE ---
Addendum entered by Vane Sanchez 10/16/24 02:49: Pt reported improvement in pain s/p medication admin. He appears to be more calm and comfortable at this time as he is sitting upright in the recliner with eyes closed. the pt's nausea and dry heaving had subsided. RN consulted MD as I did not feel comfortable giving the ordered medication at this time. Nausea and dry heaving I believe was secondary to his pain Original Note: RN relayed information to dr leung regarding pt's O2 saturation decreasing down to 79% on room air and the positive effects of the O2 via NC at 2lpm. MD to bedside to assess the patient and was able to provide education/information regarding the plan and what could be aiding or a cause of his shortness of breath
[2024-10-16 02:02] LABS: INTERNATIONAL NORM RATIO 1.4 (0.9-1.1); Prothrombin Time 15.6 SEC (10.9-12.4)
[2024-10-16] MEDS: iohexoL 350 MG/ML 100 ML INFUS..BTL IV (03:20)
[2024-10-16 03:42] VITALS: BP 126/56; PULSE 103; RESP 19; TEMP 36.8; O2SAT 100
--- NOTE | 2024-10-16 03:45 | PC.NURSE ---
Pt brought over to CT imaging via wheelchair around 0300. RN to CT room to obtain bladder scan as the pt has not voided since arrival and was previously unable/unwilling to lay flat. Pt found to have 70mls in his bladder. He was experiencing nausea again while in CT and was medicated at 0315 with nausea medication that previously held. Pt tolerated the medication well and was able to tolerate the scan. He was brought back to his room via stretcher due to his increased lethargy s/t medication administration. VSS, he does not appear to be in any acute distress.
[2024-10-16 05:31] VITALS: BP 100/54; PULSE 88; RESP 18; O2SAT 99
[2024-10-16 05:45] VITALS: BP 100/54; PULSE 88; RESP 18; TEMP 36.6; O2SAT 99
== END 2024-10-16 05:47 | disposition home or self-care (01) ==
PROVIDERS: Emergency Provider Emergency Medicine Emergency Medical Services; PCP Internal Medicine
DX: K59.00 Constipation, unspecified (principal); K31.89 Other diseases of stomach and duodenum; R10.9 Unspecified abdominal pain; I48.20 Chronic atrial fibrillation, unspecified; K50.113 Crohn's disease of large intestine with fistula; E66.9 Obesity, unspecified; Z68.42 Body mass index [BMI] 45.0-49.9, adult; Z93.3 Colostomy status; Z79.01 Long term (current) use of anticoagulants; Z79.899 Other long term (current) drug therapy
CPT/HCPCS: 36415; 74177; 80053; 83690; 85025; 85610; 93005; 96361; 96374; 96375; 96376; 99285; 99291; J1171; J1200; J2405; J2765; Q9967

== ENCOUNTER → 2024-10-16 00:37 | Outpatient (BNV) | payer MEDICARE, SELFPAY | PROVIDERS: Emergency Provider Emergency Medicine Emergency Medical Services; PCP Internal Medicine; Visit Provider Internal Medicine | DX: I48.91 Unspecified atrial fibrillation (principal) | CPT/HCPCS: 93010 ==

== ENCOUNTER → 2024-10-16 02:50 | Outpatient (BNV) | payer MEDICARE, SELFPAY | PROVIDERS: Emergency Provider Emergency Medicine Emergency Medical Services; PCP Internal Medicine; Visit Provider Radiology Diagnostic Radiology | DX: L02.31 Cutaneous abscess of buttock (principal) | CPT/HCPCS: 74177 ==

== ENCOUNTER 2024-10-31 08:17 | Outpatient (REF) | payer MEDICARE, SELFPAY ==
--- NOTE | ~2024-10-31 | US_ITS ---
EXAMINATION: US LOWER EXTREMITY VENOUS (REFLUX EXAM), BILATERAL CLINICAL INFORMATION: Localized swelling, mass and lump, lower limb, bilateral. Bilateral leg swelling. COMPARISON: None. TECHNIQUE: Color flow triplex imaging and compression Doppler was performed to evaluate both the deep and the superficial systems bilaterally. To evaluate the superficial system, the examination was performed in the upright position. Color-flow Doppler ultrasound and compression ultrasound were utilized. In addition, maneuvers were utilized to demonstrate reflux. FINDINGS: 1. DEEP VENOUS ULTRASOUND OF THE RIGHT LOWER EXTREMITY: Common Femoral Vein: Compressible, normal respiratory variation and augmented flow. Femoral Vein: Compressible, normal color flow and augmentation. Popliteal Vein: Compressible, normal augmentation. Deep Reflux: There is no evidence of reflux in the deep system in either the common femoral vein, superficial femoral or the popliteal vein. There is no evidence of a Kelly's cyst. 2. SUPERFICIAL ULTRASOUND WITH DOPPLER OF RIGHT LOWER EXTREMITY: GREAT SAPHENOUS VEIN: Saphenofemoral Junction: 0.9 cm; Reflux: 0 ms Proximal Thigh: 0.7 cm; Reflux: 0 ms Mid Thigh: 0.5 cm; Reflux: 0 ms Distal Thigh: 0.6 cm; Reflux: 0 ms At Knee: 0.5 cm; Reflux: 0 ms Proximal Calf: 0.5 cm; Reflux: 1416 ms Mid Calf: 0.4 cm; Reflux: 0 ms Distal Calf: 0.4 cm; Reflux: 0 ms DUPLICATED MEDIAL GREAT SAPHENOUS VEIN: None imaged. DUPLICATED LATERAL GREAT SAPHENOUS VEIN: SFJ: 0.3 cm, no reflux. Mid thigh: 0.2 cm, no reflux. SMALL SAPHENOUS VEIN: Saphenopopliteal Junction: 0.3 cm; Reflux: 0 ms Proximal: 0.2 cm; Reflux: 0 ms Distal: 0.3 cm; Reflux: 0 ms VEIN OF GIACOMINI: Size: 0.2 Reflux: None. PERFORATORS: Mid thigh: 0.2 cm. No reflux. Proximal calf: 0.3 cm. No reflux. Midcalf: 0.2 cm. No reflux. Distal calf 0.4 cm, no reflux. VARICOSITIES: Proximal thigh, 0.4 cm, no reflux. At the knee, 0.4 cm, no reflux. Midcalf, 0.4 cm, no reflux. Midcalf, 0.3 cm, no reflux. Distal calf, 0.3 cm, no reflux. 3. DEEP VENOUS ULTRASOUND OF THE LEFT LOWER EXTREMITY: Common Femoral Vein: Compressible, normal respiratory variation and augmented flow. Femoral Vein: Compressible, normal color flow and augmentation. Popliteal Vein: Compressible, normal augmentation. Deep Reflux: There is no evidence of reflux in the deep system in either the common femoral vein, superficial femoral or the popliteal vein. There is no evidence of a Kelly's cyst. 4. SUPERFICIAL ULTRASOUND WITH DOPPLER OF LEFT LOWER EXTREMITY: GREAT SAPHENOUS VEIN: Saphenofemoral Junction: 0.8 cm; Reflux: 0 ms Proximal Thigh: 0.7 cm; Reflux: 0 ms Mid Thigh: 0.6 cm; Reflux: 0 ms Distal Thigh: Not seen. At Knee: Not seen. Proximal Calf: Not seen. Mid Calf: 0.4 cm; Reflux: 0 ms Distal Calf: 0.4 cm; Reflux: 2260 ms DUPLICATED MEDIAL GREAT SAPHENOUS VEIN: None imaged. DUPLICATED LATERAL GREAT SAPHENOUS VEIN: SFJ: 0.3 cm. No reflux. SMALL SAPHENOUS VEIN: Saphenopopliteal Junction: 0.2 cm; Reflux: 0 ms Proximal: 0.2 cm; Reflux: 0 ms Distal: 0.3 cm; Reflux: 0 ms VEIN OF GIACOMINI: Size: 0.3 cm. Reflux: NA PERFORATORS: Midcalf, 0.3 cm, no reflux. VARICOSITIES: Mid calf SSV: 0.4 cm, no reflux. Mid thigh: 0.5 cm, no reflux. Distal thigh: 0. cm, no reflux. Midcalf: 0.3 cm, no reflux. US/US venous insuf bilat IMPRESSION: RIGHT: 1. No deep venous thrombosis or evidence of deep venous reflux/insufficiency. 2. No superficial venous thrombosis. Minimal reflux present in the greater saphenous vein below the knee. No additional significant reflux in the superficial system. 3. Varices noted in the right proximal thigh, at the knee, in the mid calf, and in the distal calf as detailed, without evidence of reflux. LEFT: 1. No deep venous thrombosis or evidence of deep venous reflux/insufficiency. 2. No superficial venous thrombosis. Mild reflux present in the greater saphenous vein at the ankle. No additional significant reflux in the superficial system. 3. The greater saphenous vein could not be well seen spanning the left distal thigh through the left proximal calf due to diminutive size. 4. Varices noted in the left calf SSV, mid thigh, distal thigh, and midcalf as detailed, without evidence of reflux. Electronically signed by: Howard Tee MD 10/31/2024 10:32 AM EDT RP
== END 2024-10-31 08:18 | disposition home or self-care (01) ==
LOC: HO.US 08:17
PROVIDERS: PCP Internal Medicine; Visit Provider Internal Medicine
DX: R22.43 Localized swelling, mass and lump, lower limb, bilateral (principal)
CPT/HCPCS: 93970

== ENCOUNTER → 2024-10-31 08:18 | Outpatient (BNV) | payer MEDICARE, SELFPAY | PROVIDERS: PCP Internal Medicine; Visit Provider Radiology Diagnostic Radiology | DX: I83.813 Varicose veins of bilateral lower extremities with pain (principal) | CPT/HCPCS: 93970 ==

== ENCOUNTER 2024-11-15 08:49 | Outpatient (AMB) | payer MEDICARE, SELFPAY ==
[2024-11-15 08:57] VITALS: BP 108/60; PULSE 84; TEMP 36.8; O2SAT 96; BMI 47.1
--- NOTE | 2024-11-15 08:57 | AM.OFFWIN_ITS ---
Intake Vital Signs 11/15/24 08:57 Height 5 ft 7 in Weight 301 lb BMI 47.1 BP 108/60 Blood Pressure Location Rt brachial Position Sitting Pulse 84 Pulse Source Pulse Oximeter Temp 98.2 F Temp Source Oral Pulse Oximetry (%) 96 Oxygen Delivery Method Room Air Intake Visit Reasons: EP UTI?? Intake Note: Presents with burning with peeing Patient Tobacco Use Status: Never used Tobacco Allergies ceftriaxone Adverse Reaction (Mild, Verified 11/15/24 09:06) Vomiting Do you need a note to return to daycare/school/sports/work: No HPI HPI Comments History of Present Illness Details History - The patient is a 69-year-old male pres enting with urinary symptoms suggestive of a UTI. - Reports dysuria with a stinging sensat ion during urination for a few days. - Increased frequency of urination noted over the past months, initially attributed to aging. - No fever, low back pain, or lower abdo juwan pain reported. - Denies diabetes, but recent random glu cose was slightly elevated. - Not sexually active with no abnormal p enile discharge. - No history of kidney stones. - Takes pantoprazole for GERD, adjusting frequency based on symptom severity. Physical Exam General: Cooperative, healthy appearing, comfortable, no acute distress and well developed Orientation: Patient oriented x3 Limitations: No limitations Head: Normal to inspection Ears: Hearing grossly normal bilaterally Face and sinus: Normal facial exam Neck: Normal visual inspection and Yes full ROM Respiratory: Normal respiratory effort and able to speak in complete sentences. Skin: No rashes or lesions noted Neuro: Patient oriented x3 COUNT INCLUDES THE [facility] Medical History (Updated 11/15/24 @ 09:18 by Cady Thayer PA-C) Gait instability Iron deficiency anemia Localized swelling, mass and lump, lower limb, bilateral Asthma with acute exacerbation Acute respiratory disease Impaired fasting glucose Nocturia Anemia Positive colorectal cancer screening using Cologuard test Cataract Non-pressure chronic ulcer of buttock Erythema intertrigo Moderate persistent allergic asthma Crohn's disease of perianal region with fistula Morbid obesity due to excess calories Gallstones Non-STEMI (non-ST elevated myocardial infarction) Atrial fibrillation, chronic FABIOLA on CPAP Vitamin D deficiency Acquired deformity of toenail Colostomy in place Empyema of left pleural space 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 Anal fistula Surgical History History of bowel resection History of appendectomy History of creation of ostomy Family History Father Emphysema lung HTN (hypertension) Pulmonary fibrosis Mother HTN (hypertension) Social History Household Members: Spouse Housing: Condominium Are you a primary rn palliative care to a significant other at home: No Do you presently have visiting nurse or other home services: No Alcohol intake: former Patient Tobacco Use Status: Never used Tobacco e-Cigarette/Vaping Use: Never Used Second Hand Smoke Exposure: No Advance Directives Date on File: 06/05/21 service: No Current occupational status: retired Cognitive needs: No Hearing needs: No Vision needs: Yes Review of Systems Const All systems reviewed & are unremarkable except as noted in HPI and below Assessment & Plan Assessment & Plan (1) UTI (urinary tract infection): Code(s): N39.0 - Urinary tract infection, site not specified Qualifiers: Urinary tract infection type: acute cystitis Hematuria presence: without hematuria Qualified Code(s): N30.00 - Acute cystitis without hematuria Plan: Plan Patient was informed and verbally consented to the use of an ambient scribe for clinic note documentation during this visit. 1. Urinary Tract Infection (Uti) - Treat with cephalosporin antibiotic, twice daily for five days. Stop Pantoprazole while taking abx, pt onlly takes PRN, will use TUMS. - Perform urine culture to confirm infection. - Discontinue antibiotics if culture is negative and follow up with primary care. Orders: Orders Urine Culture Today N39.0 - Urinary tract infection, site not specified Medications: New cefuroxime axetil 500 mg PO Q12H 10 tabs 0RF Coding Level of Care Code Est Pt Level 3 (38816) Diagnoses Acute cystitis without hematuria N30.00 Urinary tract infection type: acute cystitis Hematuria presence: without hematuria
== END 2024-11-15 09:45 | disposition home or self-care (01) ==
PROVIDERS: PCP Internal Medicine; Visit Provider Physician Assistant
DX: N30.00 Acute cystitis without hematuria (principal)

== ENCOUNTER 2024-11-15 08:49 | Outpatient (REF) | payer MEDICARE, SELFPAY | END 2024-11-15 08:50 | disposition home or self-care (01) | LOC: HO.LAB 08:49 | PROVIDERS: PCP Internal Medicine | DX: N30.00 Acute cystitis without hematuria (principal) | CPT/HCPCS: 87086; 99212 ==

== ENCOUNTER 2024-12-02 09:08 | Outpatient (REF) | payer MEDICARE, SELFPAY ==
[2024-12-02 10:34] LABS: MANUAL DIFF FLAG NO
[2024-12-02 10:49] LABS: Hematocrit 38.3 % (42.0-52.0); Hemoglobin 10.4 g/dl (14.0-18.0); Imm Gran Abs Auto 0.02 X10*3/uL (0.00-0.03); Imm Gran Pct Auto 0.3 % (0.0-0.4); Lymphocytes Absolute Auto 1.7 X10*3/uL (1.2-4.9); Mean Corpuscular HGB Conc 27.2 g/dl (31.0-36.0); Mean Corpuscular Hemoglobin 20.5 pg (27.0-33.0); Mean Corpuscular Volume 75.4 fL (80.0-98.0); NRBC Abs Auto 0.000 X10*3/uL (0.0-0.012); NRBC Pct Auto 0.0 /100WBC (0.0-0.2); Platelet Count 287 X10*3/uL (160-400); Red Blood Count 5.08 X10*6/uL (4.60-5.80); White Blood Count 7.2 X10*3/uL (4.8-10.8)
[2024-12-02 10:54] LABS: B Type Natriuretic Peptide 115 pg/mL (<100)
[2024-12-02 10:57] LABS: Hemoglobin A1C 90.9609 umol/L; Total Hemoglobin (HGBA1C) 2722.2911 umol/L
[2024-12-02 11:31] LABS: Albumin Level 3.3 g/dL (3.5-5.0); Anion Gap 11 (12-20); Calcium 8.2 mg/dL (8.4-10.2); Carbon Dioxide 29 mmol/L (22-29); Chloride 103 mmol/L (96-108); Cholesterol 82 mg/dL (<200); Potassium 4.1 mmol/L (3.3-5.1); Sodium 139 mmol/L (135-145); Total Protein 7.1 g/dL (6.5-8.0)
[2024-12-02 11:41] LABS: Alanine Aminotransferase 9 U/L (0-40); Alkaline Phosphatase 115 U/L (39-117); Aspartate Amino Transferase 27 U/L (5-37); Blood Urea Nitrogen 11 mg/dL (9-16); Estimated Glomerular Filt Rate > 60; HDL Cholesterol 26 mg/dL (>40); Iron 22 mcg/dL (45-160); PSA,Total (Free>4and<10) 1.01 ng/mL (0.00-4.00); Percent Iron Saturation 6 % (15-50); Total Iron Binding Capacity 342 mcg/dL (228-428); Triglycerides 72 mg/dL (<150); Unsaturated Iron Binding 320 ug/dL
== END 2024-12-02 09:09 | disposition home or self-care (01) ==
LOC: HO.HMGCLDS 09:08
PROVIDERS: PCP Internal Medicine; Visit Provider Internal Medicine
DX: D50.9 Iron deficiency anemia, unspecified (principal); I48.20 Chronic atrial fibrillation, unspecified; R73.01 Impaired fasting glucose; E66.01 Morbid (severe) obesity due to excess calories; K50.113 Crohn's disease of large intestine with fistula; R22.43 Localized swelling, mass and lump, lower limb, bilateral; I50.812 Chronic right heart failure; Z12.5 Encounter for screening for malignant neoplasm of prostate
CPT/HCPCS: 36415; 80053; 80061; 82306; 83036; 83540; 83880; 84153; 85025

== ENCOUNTER 2024-12-30 09:00 | Outpatient (RCR) | payer MEDICARE, SELFPAY ==
--- NOTE | 2024-10-21 08:56 | MHC.PT.EP ---
[facility] [place] Office [place] Office [place] Office [address] Belgica Armstrong [address] [phone] F: [phone] F: [phone] F: [phone] F: [phone] Physical Therapy Plan of Care Date of Evaluation: 10/21/24 Date of Surgery: Diagnosis: This is a 69 yo male presenting to skilled PT with a script for unsteadiness on feet, gait instability. Assessment: This is a 69 yo male presenting to skilled PT with a script for unsteadiness on feet, gait instability. Patient reporting ongoing issues with walking, balance and neuropathy in his feet for some time now (years). He reports swelling in his legs, cramping and states that he feels like something is wrong and he was told to try PT and see if it helps. He feels like he can no longer walk long distances (>.25 mile) due to legs being tired, he is fearful of being on a ladder, stairs and bending forward for housework/yardwork. He has not had falls but is very cautious to not lose his balance. Pain is at feet and legs (to the knees). Pain is described as squeezing, like they are on fire, and numbness. He does not feel like he needs an AD. Assessment reveals pain that ranges from up to a 6/10 at the worst. Patient demos decreased B LE's, strength of B LE's, impaired balance, gait deviations, decreased endurance/cardio and impaired posture with forward head and rounded shoulders. Based on functional limitations, impaired QOL and pain tolerance patient is a good candidate for skilled PT 2x/wk for 5wks. Frequency and Duration: The patient will be seen 2x/wk for 5wks Short Term Goals: Pt will demonstrate improved postural awareness and understanding of core engagement with supine and standing tasks without cues throughout session to improve balance safety as well as improve strength in 2 weeks. Pt will continue to reinforce precautions, sitting, standing and ADL modifications with proper body mechanics and prevent falls in 2 wks. Medical Accountant Goals: Pt will demonstrate improved outcome measure by 5 points in 5 weeks for improved functional mobility. Pt will tolerate walking at least for .5 mile in 5 weeks Pt will be I in HEP and compliant in 5 wks Treatment Plan: Modalities to reduce pain, spasms and effusion. Manual therapy to restore motion and function. Therapeutic exercise to improve strength and flexibility. Neuromuscular re-education for posture and balance. Therapeutic activities to return to functional activities of daily living. Electronically signed by: Annette Banda, PT Please sign and return to therapist. Thank you for your referral.
--- NOTE | 2024-12-30 12:18 | MHC.PT.DC ---
[facility] [place] [facility] [place] [facility] [place] Office [address] [place] Armstrong [address] [phone] F: [phone] F: [phone] F: [phone] F: [phone] Physical Therapy Discharge Report Diagnosis: This is a 69 yo male presenting to skilled PT with a script for unsteadiness on feet, gait instability. Date of Surgery: Date of Evaluation: 10/21/24 Date of Discharge: 12/30/24 Treatments to Date: 13 Cancellations to Date: 0 No Shows to Date: 0 Discharge Status: Independent with HEP Discharge Summary: Patient has come to 13 sessions of PT. He has a good HEP to continue on his own. Educated him on the importance of continuing HEP, [facility] at [facility] as he is still very fatigued with work. He was complaining of his shoulders needing strengthening as well for which I educated him on talking with his PCP about. Patient is appropriate for DC to HEP, skilled PT is no longer indicated. Electronically signed by: Annette Banda PT Please sign and return to therapist. Thank you for your referral.
== END 2024-12-30 12:18 | disposition home or self-care (01) ==
LOC: HO.PTCHIC 09:00
PROVIDERS: PCP Internal Medicine; Visit Provider Internal Medicine
DX: R26.81 Unsteadiness on feet (principal)
CPT/HCPCS: 97110; 97162

== ENCOUNTER 2025-02-22 09:25 | Outpatient (AMB) | payer MEDICARE, SELFPAY ==
--- NOTE | 2025-02-22 09:36 | A.OFFVIS_ITS ---
Intake Vital Signs 02/22/25 09:37 Height 5 ft 7 in Weight 305 lb BMI 47.8 BP 102/60 Blood Pressure Location Lt brachial Position Sitting Respiration 16 Pulse 78 Pulse Source Pulse Oximeter Temp 98.1 F Temp Source Oral Pulse Oximetry (%) 97 Oxygen Delivery Method Room Air Intake Visit Reasons: KIAH G0439 Intake Note: Pt is here today his [facility] Bag Tester Required: No Allergies ceftriaxone Adverse Reaction (Mild, Verified 02/22/25 10:01) Vomiting Medication List - Last Reconciled 02/22/25 by Isabel Tilley MD albuterol sulfate 90 mcg/actuation 2 puffs PO Q4H PRN apixaban (Eliquis) 5 mg PO BID balsalazide 2,250 mg PO TID benralizumab (Fasenra) 30 mg subcut Q8W budesonide-formoterol 160-4.5 mcg/actuation (Symbicort) 2 puffs PO BID cholecalciferol (vitamin D3) 25 mcg PO DAILY [COq10 PO DAILY] digoxin 125 mcg PO DAILY ferrous sulfate 325 mg PO DAILY furosemide 20 mg PO DAILY inhalational spacing device (BreatheRite MDI Spacer) As directed ipratropium-albuterol 0.5 mg-3 mg(2.5 mg base)/3 mL 3 mL inhalation Q4-6H PRN krill oil 500 mg PO DAILY lactobacillus combination no.9 (Adult 50 Plus Probiotic) 4,000 mmu cells PO DAILY magnesium 250 mg PO DAILY mecobalamin (vitamin B12) mcg PO melatonin 10 mg PO BEDTIME PRN metoprolol tartrate 50 mg PO BID multivitamin 1 tab PO DAILY pantoprazole 40 mg PO DAILY HPI V G0439 HPI Details V 69 year old male, presents for his [facility]ness Visit, subsequent visit.? He is up-to-date with his cholesterol and fasting blood sugar screening, done 12/02/2024 with normal findings except for low HDL cholesterol. He had a colonoscopy done [address] Sorto, had a positive Cologuard test done 03/04/2023 and has concerns about the small opening in his colostomy and potential complications with undergoing another colonoscopy. He had a colonoscopy done through the stoma in [place] with Dr. Lopes earlier this year and he described at the great majority of the colon to the region of the anastomosis appeared normal, but there was some inflammation and what he thought were pseudopolyps just proximal to the stomal opening. Was unable to evaluate a diverting rectum and lower sigmoid colon due to stricturing at the anal opening and he could not enter it with the scope. The patient has a history of Crohn's disease, an anal fistula that necessitated a colostomy, and microcytic hypochromic anemia as noted on last CBC done 12/02/2024. He has been taking his iron supplements on and off. He is up-to-date with his prostate cancer screening done 12/02/2024, which came back within normal limits. He is up-to-date with his, Tdap, and pneumococcal vaccination, and Shingrix vaccine, she is due for flu vaccine and COVID booster. ? Medical / Social History Reviewed? Past Medical History ?Yes . ? [place] of Care / Care Team list updated ?Yes . ? Surgical/Hospitalization History ?Yes . ? Current Medications (including OTC and supplements) ?Yes . ? Family History ?Yes . ? Tobacco Control form ?Yes . ? AUDIT-C (Alcohol use) form ?Yes . ? Illicit drug use in Social History ?Yes . ? Current diagnosis of depression? ?No ? Appropriate PHQ2/PHQ9 completed ?Yes . ? Data entered by ?Orthopedic Rn and reviewed by provider ? Fall Risk ? Fall History? Have you had any falls with injury in the past year? ?No . ? Have you had two or more falls in the past year? ?No . ? Fall Risk Assessment: ?No falls in the past year . ? HRA filled out by the patient, reviewed by Provider and scanned. ?? SWV ? Balance? Romberg ?Yes . ? Tandem walk ?has but with some difficulty ? Walk and Turn ?Yes . ? Rise from sit to stand ?Yes . ?Vision? Corrective lens ?Yes ? Vision screen ? Up-to-date,sees Dr Lui, has history of cataract surgery ?Hearing? Whisper test ?pass . ?Written Plan?Completed. See Patient Documents.? Healthcare proxy done 06/05/2021 and [facility] 07/24/2022 [facility] Medical History (Updated 02/22/25 @ 10:42 by Isabel Tilley MD) Vitamin D deficiency Gait instability Iron deficiency anemia Localized swelling, mass and lump, lower limb, bilateral Asthma with acute exacerbation Acute respiratory disease Impaired fasting glucose Nocturia Anemia Positive colorectal cancer screening using Cologuard test Cataract Non-pressure chronic ulcer of buttock Erythema intertrigo Moderate persistent allergic asthma Crohn's disease of perianal region with fistula Morbid obesity due to excess calories Gallstones Non-STEMI (non-ST elevated myocardial infarction) Atrial fibrillation, chronic FABIOLA on CPAP Acquired deformity of toenail Colostomy in place Empyema of left pleural space Current use of custodial anticoagulation Anal fistula Surgical History History of bowel resection History of appendectomy History of creation of ostomy Family History Father Emphysema lung HTN (hypertension) Pulmonary fibrosis Mother HTN (hypertension) Social History Household Members: Spouse Housing: Condominium Are you a primary palliative care specialist to a significant other at home: No Do you presently have visiting nurse or other home services: No Alcohol intake: former Patient Tobacco Use Status: Never used Tobacco e-Cigarette/Vaping Use: Never Used Second Hand Smoke Exposure: No Advance Directives Date on File: 06/05/21 service: No Current occupational status: retired Cognitive needs: No Hearing needs: No Vision needs: Yes Questionnaire Medicare Wellness Checkup What [age] What gender do you identify with?: male During the past 4 weeks, how much have you been bothered by emotional problems such as feeling anxious, depressed, irritable, sad or downhearted, and blue?: not at all During the past 4 weeks, has your physical & emotional health limited your soc ial activities with family, friends, neighbors, or groups?: not at all During the past 4 weeks, how much bodily pain have you generally had?: no pain During the past 4 weeks, was someone available to help you if you needed & wanted help?: yes, as much as I wanted During the past 4 weeks, what was the hardest physical activity you could do for at least 2 minutes?: light Can you get to places out of walking distance without help? (For eg., can you travel alone on buses, taxis or drive your car?): No Can you go shopping for groceries or clothes without someone's help?: Yes Can you prepare your own meals?: Yes Can you do your housework without help?: Yes Because of any health problems, do you need the help of another person with your personal care needs such as eating, bathing, dressing or getting around the house?: No Can you handle your own money without help?: Yes During the past 4 weeks, how would you rate your health in general?: good During the past 4 weeks how have things been going for you?: pretty well Are you having difficulties driving your car?: no Do you always fasten your seat belt when you are in a car?: yes, usually Have you fallen 2 or more times in the past year?: No Are you afraid of falling?: No Are you a smoker?: no During the past 4 weeks, how many drinks of wine, beer, or other alcoholic beverages did you have?: no alcohol at all Do you exercise for about 20 minutes 3 or more times a week?: no, I usually do not exercise this much Have you been given information to help with the following?: no: Hazards in your house that might hurt you? and no: Keeping track of your medications? How often do you have trouble taking medicines the way you have been told to take them?: I always take medicine as prescribed How confident are you that you can control & manage most of your health problems?: very confident What is your race?: White Mini Mental State Exam (MMSE) Orientation What is the (year) (season) (date) (day) (month)?: year (2024), season (fall), date (02/22/25), day (thursday) and month () Where are we (state) (county) (town or city) (hospital) (floor)?: state ([facility], [facility] ([place]), town or city ([place]) and hospital/clinic ([place] Score Score: 9 Activity of Daily Living Bathing - sponge bath, tub bath or shower: receives no assistance (gets in/out by self, if usual bathing means Dressing - getting clothes from closets & drawers, including inner/outer garments & fasteners.: gets clothes & gets completely dressed without help Toileting - going to the 'toilet room' for urine/bowel elimination & cleaning self/arranging clothes: goes to toilet room, cleans self, arranges clothes without help Transfer: moves in & out of bed and chair without help (may use support object) Continence: controls urination/bowel movements completely by self Feeding: feeds self without help Total Score: 0 Information obtained from: patient Using telephone: independent Traveling: independent Shopping: independent Preparing meals: independent Housework: independent Taking medicine: independent Managing money: independent PHQ-9 Over the last 2 weeks, how often have you been bothered by any of the following problems? 1. Little interest or pleasure in doing things: not at all 2. Feeling down, depressed, or hopeless: not at all 3. Trouble falling or staying asleep, or sleeping too much: not at all 4. Feeling tired or having little energy: not at all 5. Poor appetite or overeating: not at all 6. Feeling bad about yourself - or that you are a failure or have let yourself or your family down: not at all 7. Trouble concentrating on things, such as reading the newspaper or watching television: not at all 8. Moving or speaking so slowly that other people could have noticed. Or the opposite - being so fidgety or restless that you have been moving around a lot more than usual: not at all 9. Thoughts that you would be better off or of hurting yourself in some way: not at all Total score: 0 Depression Screening Interpretation: Negative Depression Screening Done: Yes 03998 - PHQ-9 Billing: Yes Source: Developed by Drs. Arron Summers, Lizabeth Shine, Bradley Cobb and colleagues, with an educational deni from [employer]. Physical Exam Vital Signs: Last Vital Signs Temp 98.1 F 02/22/25 09:37 Pulse 78 02/22/25 09:37 Resp 16 02/22/25 09:37 BP 102/60 02/22/25 09:37 Pulse Ox 97 02/22/25 09:37 Oxygen Delivery Method Room Air 02/22/25 09:37 BMI result Body Mass Index 47.8 Results Reviewed Results Reviewed: RUN: 02/22/25 1037 PAGE 1 [facility] [address] [place] [id number] [employer] Pelt Grader: Shine Carmona M.D. Specimen Inquiry Name: Gorge Dave Age/Sex: 69/M : 1955 Unit#: [id number] Attend Dr: Isabel Tilley MD Re12/02/24 Status: DEP REF Location: [facility] Disch: SPEC : [id number] MIGUEL ÁNGEL: 12/02/24 STATUS: COMP REQ : [id number] RECD: 12/02/24-[address]: Isabel Tilley MD COMP: 12/02/24 ENTERED: 12/02/[address] [facility] [address]: ORDERED: CBC Auto Diff Test Result Flag Reference WBC 7.2 4.8-10.8 X10*3/uL RBC 5.08 4.60-5.80 X10*6/uL HGB 10.4 L 14.0-18.0 g/dl HCT 38.3 L 42.0-52.0 % MCV 75.4 L 80.0-98.0 fL MCH 20.5 L 27.0-33.0 pg MCHC 27.2 L 31.0-36.0 g/dl RDW 19.8 H 11.0-16.0 % PLT 287 160-400 X10*3/uL MPV 10.1 9.4-12.4 fL Neut Pct Auto 64.1 45-73 % ImGran Pct Auto 0.3 0.0-0.4 % Lymp Pct Auto 23.5 20-40 % Ralls Pct Auto 12.0 H 2-11 % Eos Pct Auto 0.0 0-4 % Baso Pct Auto 0.1 0-2 % NRBC Pct Auto 0.0 0.0-0.2 /100WBC ANC Neut Abs # 4.6 2.0-8.3 x10*3/uL ImGran Abs Auto 0.02 0.00-0.03 X10*3/uL Lymph Abs Auto 1.7 1.2-4.9 X10*3/uL Ralls Abs Auto 0.9 0.1-1.2 X10*3/uL Eos Abs Auto 0.0 0.0-0.4 X10*3/uL Baso Abs Auto 0.0 0.0-0.2 X10*3/uL NRBC Abs Auto 0.000 0.0-0.012 X10*3/uL vivienne: Gorge Dave Age/Sex: 69/M : 1955 Unit#: [id number] Attend Dr: Isabel Tilley MD Re12/02/24 Status: DEP REF Location: [facility] Disch: SPEC : [id number] MIGUEL ÁNGEL: 12/02/24 STATUS: COMP REQ : [id number] RECD: 12/02/24-[address]: Isabel Tilley MD COMP: 12/02/24 ENTERED: 12/02/[address] [facility] [address]: ORDERED: CMP Fast, IRON PROF, Lipid Panel, Vitamin D 25-OH Test Result Flag Reference Sodium 139 135-145 mmol/L Potassium 4.1 3.3-5.1 mmol/L CL 103 96-108 mmol/L CO2 29 22-29 mmol/L Gap 11 L 12-20 BUN 11 9-16 mg/dL Creat 0.94 0.5-1.4 mg/dL eGFR > 60 Chronic Kidney Disease: Estimated GFR < 60 mL/min/1.73m2 Severe Kidney Disease: Estimated GFR < 15 mL/min/1.73m2 FBS 83 60-99 mg/dL CA 8.2 L 8.4-10.2 mg/dL Iron 22 L 45-160 mcg/dL TIBC 342 228-428 mcg/dL Saturation 6 L 15-50 % UIBC 320 ug/dL Total Bili 0.6 0.0-1.0 mg/dL AST (GOT) 27 5-37 U/L ALT (GPT) 9 0-40 U/L Protein, Total 7.1 6.5-8.0 g/dL Alb 3.3 L 3.5-5.0 g/dL Triglyceride 72 <150 mg/dL Desirable Triglyceride: less than 150 mg/dL Borderline High Triglyceride 150-199 mg/dL High Triglyceride: 200-499 mg/dL Very High Triglyceride: greater than or equal to 5OO mg/dL Cholesterol 82 <200 mg/dL Desirable Cholesterol: less than 200 mg/dL Borderline High Cholesterol: 200-239 mg/dL High Cholesterol: greater than 239 mg/dL LDL Calculated 42 <100 mg/dL Desirable LDL: less than 100 mg/dL Near Optimal/Above Optimal LDL: 110-129 mg/dL Borderline High LDL: 130-159 mg/dL High LDL: 160-189 mg/dL Very High LDL: greater than or equal to 190 mg/dL HDL 26 L >40 mg/dL Desirable HDL: greater than 40 mg/dL Note: This HDL assay may give artificially low results in patients with liver disease. Alk Phos 115 39-117 U/L Vitamin D 25-OH 25.3 L >30 ng/mL Health Based Reference Values* < 20 ng/mL Deficient 20-30 ng/mL Insufficient > 30 ng/mL Sufficient Assessment & Plan Assessment & Plan (1) Encounter for subsequent annual wellness visit (AWV) in Medicare patient: Code(s): Z00.00 - Encounter for general adult medical examination without abnormal findings Plan: Medical wellness checklist reviewed, discussed with patient and updated. Up-to-date with his advanced directives and vaccination , and routine screenings (2) Impaired fasting glucose: Code(s): R73.01 - Impaired fasting glucose Plan: Your previous fasting blood sugars were elevated above 100 mg/dL. Impaired glucose metabolism increases the risk for developing diabetes mellitus type 2, as well as heart attack and stroke later on. Lifestyle changes that promotes weight loss, healthy eating habits, and regular exercise are important, and can prevent the progression to diabetes (3) Morbid obesity due to excess calories: Code(s): E66.01 - Morbid (severe) obesity due to excess calories Plan: Advised to follow a Mediterranean diet is a healthy diet that helps, limit food high in fat, sugar, and calories. Eat slowly, pay attention to portion sizes, plan your meals ahead of time, start regular physical activity, at least 150 minutes of moderate intensity exercise, or 90 minutes per week of vigorous exercise. (4) Anal fistula: Comment: sees Dr lopes @ [facility], and Dr Sorto Code(s): K60.3 - Anal fistula Plan: Followed by GI specialist at [facility] in [place], and sees Dr. Sorto (5) Crohn's disease of perianal region with fistula: Code(s): K50.113 - Crohn's disease of large intestine with fistula Plan: Followed by GI clinic , sees Dr. Sorto (6) Iron deficiency anemia: Code(s): D50.9 - Iron deficiency anemia, unspecified Plan: Continue taking ferrous sulfate 325 mg daily (7) Non-pressure chronic ulcer of buttock: Comment: Followed at [facility] would care and also sees Dr. Ortega in [place] dermatology Code(s): L98.419 - Non-pressure chronic ulcer of buttock with unspecified severity Plan: Followed at [facility] wound care and Dr. Ortega (8) Moderate persistent allergic asthma: Code(s): J45.40 - Moderate persistent asthma, uncomplicated Plan: Currently on Symbicort, and uses albuterol inhaler as needed (9) FABIOLA on CPAP: Code(s): G47.33 - Obstructive sleep apnea (adult) (pediatric); Z99.89 - Dependence on other enabling machines and devices Plan: Using CPAP (10) Atrial fibrillation, chronic: Code(s): I48.20 - Chronic atrial fibrillation, unspecified Plan: On metoprolol tartrate 50 mg twice a day and Eliquis 5 mg 1 tablet b.i.d., followed by cardiology (11) Vitamin D deficiency: Code(s): E55.9 - Vitamin D deficiency, unspecified Plan: Continue taking vitamin-D 3 supplements, repeat vitamin-D level in May 2025 Orders: Orders Complete Blood Count Auto Diff 05/28/25 E55.9 - Vitamin D deficiency, unspecified IRON PROFILE 05/28/25 E55.9 - Vitamin D deficiency, unspecified Vitamin D 25-OH Total 05/28/25 E55.9 - Vitamin D deficiency, unspecified Quality Reporting (2019) Depression/Bipolar (159/160/161/177) PHQ-9: Total score: 0 Coding Level of Care Code Medicare Subsequent (G0439) Diagnoses Encounter for subsequent annual wellness visit (AWV) in Medicare patient Z00.00 Impaired fasting glucose R73.01 Morbid obesity due to excess calories E66.01 Anal fistula K60.3 Crohn's disease of perianal region with fistula K50.113 Iron deficiency anemia D50.9 Non-pressure chronic ulcer of buttock L98.419 Moderate persistent allergic asthma J45.40 FABIOLA on CPAP G47.33; Z99.89 Atrial fibrillation, chronic I48.20 Vitamin D deficiency E55.9 CPT Codes Advance Care Planning - Advance Care Planning discussion: On file, no changes ([id number]) Advance Care Planning - Time spent: 1-15 minutes, on File ([id number]) Additional Codes PHQ-9 - 76909 - PHQ-9 Billing: Yes ([id number]) Advance Care Planning Advance Care Planning discussion: On file, no changes Date of discussion: 02/22/25 Who was present: Patient Forms completed: Health Care Proxy (06/05/2021) and [facility] (07/24/2022) Time spent: 1-15 minutes, on File Actual minutes spent: 1
[2025-02-22 09:37] VITALS: BP 102/60; PULSE 78; RESP 16; TEMP 36.7; O2SAT 97; BMI 47.8
== END 2025-02-22 11:07 | disposition home or self-care (01) ==
LOC: HO.HMCC 09:26
PROVIDERS: PCP Internal Medicine; Visit Provider Internal Medicine
DX: Z00.00 Encounter for general adult medical examination without abnormal findings (principal); E66.01 Morbid (severe) obesity due to excess calories; K50.113 Crohn's disease of large intestine with fistula; L98.419 Non-pressure chronic ulcer of buttock with unspecified severity; I48.20 Chronic atrial fibrillation, unspecified; R73.01 Impaired fasting glucose; K60.30 Anal fistula, unspecified; D50.9 Iron deficiency anemia, unspecified; J45.40 Moderate persistent asthma, uncomplicated; G47.33 Obstructive sleep apnea (adult) (pediatric); Z99.89 Dependence on other enabling machines and devices; E55.9 Vitamin D deficiency, unspecified

== ENCOUNTER → 2025-02-22 09:25 | Outpatient (BNVA) | payer MEDICARE, SELFPAY | PROVIDERS: PCP Internal Medicine; Visit Provider Internal Medicine | DX: Z13.31 Encounter for screening for depression (principal) | CPT/HCPCS: 96127 ==

== ENCOUNTER 2025-03-09 08:50 | Outpatient (AMB) | payer MEDICARE, SELFPAY ==
[2025-03-09 08:56] VITALS: BP 112/62; PULSE 92; O2SAT 96; BMI 47.8
--- NOTE | 2025-03-09 08:56 | A.OFFVIS_ITS ---
Vital Signs 03/09/25 08:56 Height 5 ft 7 in Weight 305 lb BMI 47.8 BP 112/62 Blood Pressure Location Rt brachial Position Sitting Pulse 92 Pulse Source Pulse Oximeter Pulse Oximetry (%) 96 Oxygen Delivery Method Room Air Intake Visit Reasons: Asthma Allergies ceftriaxone Adverse Reaction (Mild, Verified 03/09/25 08:59) Vomiting HPI HPI Asthma: Details: 69-year-old gentleman, lifetime nonsmoker, with underlying history of AFib previously on amiodarone, followed for underlying severe persistent allergic asthma, environmental allergies, and FABIOLA on CPAP. ?He continues on Fasenra, Symbicort, and albuterol MDI with good control of his symptoms, though with some seasonal exacerbation with exposure to cold air. [facility] Medical History (Updated 02/22/25 @ 10:42 by Isabel Tilley MD) Vitamin D deficiency Gait instability Iron deficiency anemia Localized swelling, mass and lump, lower limb, bilateral Asthma with acute exacerbation Acute respiratory disease Impaired fasting glucose Nocturia Anemia Positive colorectal cancer screening using Cologuard test Cataract Non-pressure chronic ulcer of buttock Erythema intertrigo Moderate persistent allergic asthma Crohn's disease of perianal region with fistula Morbid obesity due to excess calories Gallstones Non-STEMI (non-ST elevated myocardial infarction) Atrial fibrillation, chronic FABIOLA on CPAP Acquired deformity of toenail Colostomy in place Empyema of left pleural space Current use of care home anticoagulation Anal fistula Surgical History History of bowel resection History of appendectomy History of creation of ostomy Family History Father Emphysema lung HTN (hypertension) Pulmonary fibrosis Mother HTN (hypertension) Social History Household Members: Spouse Housing: Condominium Are you a primary animal caretaker to a significant other at home: No Do you presently have visiting nurse or other home services: No Alcohol intake: former Patient Tobacco Use Status: Never used Tobacco e-Cigarette/Vaping Use: Never Used Second Hand Smoke Exposure: No Advance Directives Date on File: 06/05/21 service: No Current occupational status: retired Cognitive needs: No Hearing needs: No Vision needs: Yes Review of Systems Const Denies daytime sleepiness, Denies excessive sweating, Denies fatigue, Denies fever(s), Denies lethargy, Denies malaise, Denies night sweats, Denies snoring and Denies weight loss Eyes Denies blurry vision and Denies itchy eyes ENT Denies nasal congestion, Denies post nasal drip, Denies sinus pain, Denies sinus pressure and Denies other ( Thrush) Card Denies chest pain, Denies pedal edema, Denies dyspnea, Denies orthopnea and Denies paroxysmal nocturnal dyspnea Resp Denies cough, Denies hemoptysis, Denies excessive phlegm production, Denies dyspnea, Denies snoring and Denies wheezing GI Denies abdominal pain and Denies heartburn Musc Denies myalgias, Denies arthralgias and Denies joint swelling Skin/Breast Denies rash Neuro Denies memory loss and Denies seizure-like activity Psych Denies abnormal sleep pattern, Denies anxiety and Denies memory loss Endo Denies excessive sweating, Denies fatigue and Denies heat intolerance Cas/Lymph Denies easy bruising Aller/Immun Denies itchy eyes, Denies seasonal rhinorrhea and Denies wheezing Physical Exam Vital Signs: Last Vital Signs Pulse 92 03/09/25 08:56 BP 112/62 03/09/25 08:56 Pulse Ox 96 03/09/25 08:56 Oxygen Delivery Method Room Air 03/09/25 08:56 BMI result Body Mass Index 47.8 Const General: no acute distress and alert Nutritional Appearance: obese Orientation/consciousness: Other orientation findings ( oriented) HEENT Head: Yes atraumatic Eyes General: appearance normal, both eyes and all related structures Sclerae: sclerae normal EOM: EOMs intact bilaterally Neck Neck: Yes supple Lymphatic: no lymphadenopathy noted Resp Effort & Inspection: normal respiratory effort and no use of accessory muscles Auscultation: clear to auscultation bilaterally Cardio Rate: regular rate Rhythm: regular rhythm Heart sounds: no gallops, no murmurs and no rubs Skin General skin exam: other ( warm) Extrem General: No clubbing, No cyanosis and No edema Assessment & Plan Assessment & Plan (1) Moderate persistent allergic asthma: Code(s): J45.40 - Moderate persistent asthma, uncomplicated Category: Medical Plan: Reasonably well controlled on current regimen of placental, Symbicort, DuoNebs, and albuterol MDI. Continue current regimen. (2) Environmental allergies: Code(s): Z91.09 - Other allergy status, other than to drugs and biological substances Category: Medical Plan: Well controlled on Fasenra. Continue current regimen. Coding Level of Care Code Est Pt Level 4 (15429) Diagnoses Moderate persistent allergic asthma J45.40 Environmental allergies Z91.09
== END 2025-03-09 09:14 | disposition home or self-care (01) ==
PROVIDERS: PCP Internal Medicine; Visit Provider Internal Medicine Pulmonary Disease
DX: J45.40 Moderate persistent asthma, uncomplicated (principal); Z91.09 Other allergy status, other than to drugs and biological substances
CPT/HCPCS: 99214

== ENCOUNTER → 2025-03-09 08:50 | Outpatient (BNVA) | payer MEDICARE, SELFPAY | PROVIDERS: PCP Internal Medicine; Visit Provider Internal Medicine Pulmonary Disease | DX: J45.40 Moderate persistent asthma, uncomplicated (principal); Z91.09 Other allergy status, other than to drugs and biological substances | CPT/HCPCS: 99212 ==